=== PATIENT | male | born 1945 | race Caucasian/White ===

== ENCOUNTER 2023-04-18 14:00 | Outpatient (OUT) | payer MEDICARE, OTHER, SELFPAY ==
[2023-04-18 15:03] LABS: Free T4 1.14 ng/dL (0.76-1.46)
[2023-04-18 15:06] LABS: Alanine Aminotransferase 43 U/L (16-63); Albumin Globulin Ratio 0.7; Albumin Level 2.8 g/dL (3.4-5.0); Alkaline Phosphatase 142 U/L (46-116); Aspartate Amino Transferase 26 U/L (15-37); Bilirubin Direct 0.1 mg/dL (0.0-0.2); Bilirubin Total 0.2 mg/dL (0.2-1.0); Globulin 4.1 g/dL; Thyroid Stimulating Hormone 0.804 uIU/mL (0.358-3.740); Total Protein 6.9 g/dL (6.4-8.2)
== END 2023-04-18 14:01 | disposition home or self-care (01) ==
LOC: LAB 14:05
PROVIDERS: Visit Provider Nurse Practitioner Family
DX: Z79.899 Other long term (current) drug therapy (principal)
CPT/HCPCS: 36415; 80076; 84439; 84443

== ENCOUNTER 2023-07-25 13:15 | Outpatient (OUT) | payer MEDICARE, OTHER, SELFPAY ==
--- NOTE | 2023-07-25 14:32 | XR_ITS ---
The [address] [address] Patient Name: BERTHA PULIDO MRN: [id number] date: 1945 Sex: M Assigned Patient Location: [facility] Current Patient Location: [facility] Accession/Order Number: [id number] Exam Date: 07/25/2023 14:42 Report Date: 07/25/2023 14:53 At the request of: NON-STAFF PHYSICIAN Procedure: XR chest 2V EXAM: XR chest 2V HISTORY: Monitoring Amiodarone Therapy Z51.81 COMPARISON: None. TECHNIQUE: Upright PA and lateral chest x-ray FINDINGS: The heart is not enlarged and the vasculature is not distended. Multiple sternal wire sutures and mediastinal clips are present. No acute infiltrate, effusion or pneumothorax is identified. Mild degenerative changes are seen in the spine. XR/XR chest 2V IMPRESSION: No acute infiltrate or evidence of cardiac decompensation. Direct comparison with a previous study may be helpful in determining the chronicity of these findings. Electronically authenticated by: EDUARDO SARGENT Date: 07/25/2023 14:53
== END 2023-07-25 13:16 | disposition home or self-care (01) ==
LOC: RAD 13:19
DX: Z51.81 Encounter for therapeutic drug level monitoring (principal); Z79.899 Other long term (current) drug therapy
CPT/HCPCS: 71046

== ENCOUNTER 2023-08-05 11:17 | Outpatient (OUT) | payer MEDICARE, OTHER, SELFPAY ==
--- OUTSIDE RECORDS SUMMARY | 2023-08-05 11:26 | XMS_ITS | CCD ---
Author Name Unknown Address [address] [place] [address] Organization [facility] Care Team Providers Care Fuel System Maintenance Supervisor Name Role Phone Tracey Sepulveda Primary Care Provider DERICK TRACEY Referring Unavailable OLMSTEAD, MOHAMMAD H Admitting Unavailable OLMSTEAD, MOHAMMAD H Attending Unavailable HEEDDAEBU, TRACEY Primary Care Unavailable HEJEEBU, TRACEY Referring Unavailable OLMSTEAD, MOHAMMAD H Attending Unavailable OLMSTEAD, MOHAMMAD H Admitting Unavailable HEEDDAEBU, TRACEY Primary Care Unavailable BRENT, CHRIS Admitting Unavailable BRENT, CHRIS Attending Unavailable MISC, DR GARSIA Primary Care Unavailable BRENT, CHRIS Consulting Unavailable MISC, DR GARSIA Admitting Unavailable MISC, DR GARSIA Attending Unavailable MISC, DR GARSIA Consulting Unavailable ALI, MAHONEY Admitting Unavailable ALI, MAHONEY Attending Unavailable MISC, DR GARSIA Primary Care Unavailable ALI, MAHONEY Consulting Unavailable GAURAV, TIFF Admitting Unavailable TIFF ARREOLA Attending Unavailable TIFF ARREOLA Consulting Unavailable Hejeebu Cori FERRARIni Primary Care Provider [phone] MANJULA STALEY Referring Unavailable HEJEEBU, TRACEY Primary Care Unavailable MANJULA STALEY Referring Unavailable HEJEEBU, TRACEY Primary Care Unavailable HEJEEBU, TRACEY Primary Care Unavailable WANDY PADRON Admitting Unavailable WANDY PADRON Attending Unavailable EDUARDO CARREON Consulting Unavailable JARRED BUENO Consulting Unavailable MANJULA STALEY Referring Unavailable HEJEEBU, TRACEY Primary Care Unavailable TIFF ARREOLA Attending Unavailable TIFF ARREOLA Attending Unavailable YONIS CASTILLO Attending Unavailable HEAKILAU, TRACEY Attending Unavailable EL-ALALI, EMRAN Attending Unavailable Unavailable Primary Care Provider Unavailabl e Allergies Allergy Classification Reported Allergen(s) Allergy Type Date of Onset Reaction(s) Facility (1 source) 51533,00; Translations: [93935,00] Propensity to adverse reactions (disorder) 9 [facility] Repository Medications Current Medications Medication Drug Class(es) Dates Sig (Normalized) Sig (Original) amiodarone hydrochloride 200 mg oral tablet (4 sources) Antiarrhythmic Start: 07-12-2022 take 1 tablet by mouth once daily at mealtime amiodarone (PACERONE) 200 mg tablet TAKE 1 TABLET BY MOUTH ONCE DAILY WITH MEALS 0 07/12/2022 Active amLODIPine 10 mg oral tablet (3 sources) Dihydropyridine Calcium Channel Kamille take 1 tablet by mouth once daily amLODIPine (NORVASC) 10 MG tablet Take 10 mg by mouth daily 0 Active amLODIPine 10 mg / atorvastatin 10 mg oral tablet (1 source) Dihydropyridine Calcium Channel Kamille, HMG-CoA Reductase Inhibitor amLODIPine-atorv astatin (CADUET) 10-10 mg per tablet 1 tablet 0 Active apixaban 5 mg oral tablet (4 sources) Factor Xa Inhibitor apixaban (ELIQUIS) 5 mg tablet See Admin Instructions. 0 Active apixaban (ELIQUI S) 2.5 MG TABS tablet Take by mouth 2 times daily 0 Active Aspirin (7 sources) Platelet Aggregation Inhibitor, Nonsteroidal Anti-inflammatory Drug aspi rin 81 mg capsule 1 tablet 0 Active take 1 tablet by mouth once jenni y aspirin 81 MG EC tablet Take 81 mg by mouth daily 0 Active take 1 tablet by mouth once jenni y aspirin 162 MG EC tablet Take 162 mg by mouth daily. 0 Active atorvastatin 20 mg oral tablet (9 sources) HMG-CoA Reductase Inhibitor atorvastatin (LIPITO R) 20 mg tablet 1 tablet 0 Active ATORVASTATIN YUMI CIUM PO Take by mouth. 0 Active bumetanide 1 mg oral tablet (4 sources) Loop Diuretic take 2 tablets by mouth once daily bumetanide (BUMEX) 1 mg tablet Take 2 tablets (2 mg total) by mouth daily. 0 Active cholecalciferol 0.05 mg oral capsule (4 sources) Vitamin D cholecalciferol, vitamin D3, 2,000 units capsule daily. 0 Active Doxazosin (5 sources) alpha-Adrenergic Kamille DOXAZOSIN MESYLATE PO Take by mouth. 0 Active 0.5 ml dulaglutide 3 mg/ml auto-injector (3 sources) GLP-1 Receptor Agonist dulaglutide (TRULICITY) 1.5 MG/0.5ML SC injection Inject 1.5 mg into the skin once a week SUNDAYS 0 Active famotidine 10 mg oral tablet (3 sources) Histamine-2 Receptor Antagonist Start: 08-31-19 23 take 1 tablet by mouth once daily famotidine (PEPCID) 10 MG tablet Take 1 tablet by mouth daily 60 tablet 3 08/31/2022 Active glipiZIDE 10 mg oral tablet (9 sources) Sulfonylurea Start: 10-03-19 23 take 1 tablet by mouth twice daily glipiZIDE (GLUCOTROL) 10 mg tablet Take 1 tablet by mouth twice daily 180 tablet 3 10/02/2022 Active take 10 mg by mouth twice daily GLIPIZIDE PO Take 10 mg by mouth 2 times daily 0 Active GLIPIZIDE PO Jordi e by mouth. 0 Active sensor 3 ml insulin glargine 100 unt/ml pen injector (1 source) Insulin Analog Start: 04-16-2023 insulin glargi ne (BASAGLAR KWIKPEN U-100 INSULIN) 100 unit/mL (3 mL) insulin pen Take 15 units at bedtime 15 mL 12 04/16/2023 Active Lisinopril (5 sources) Angiotensin Converting Enzyme Inhibitor LISINOPRIL PO Take by mouth. 0 Active magnesium oxide 400 mg oral tablet (1 source) magnesium oxide (MAGOX) 400 mg tablet daily. 0 Active meloxicam 7.5 mg oral tablet (1 source) Nonsteroidal Anti-inflammatory Drug meloxicam (MOBIC) 7.5 mg tablet daily. 0 Active metFORMIN (5 sources) Biguanide METFORMIN HCL PO Take by mouth. 0 Active metoprolol tartrate 25 mg oral tablet (9 sources) beta-Adrenergic Kamille take 1 tablet by mouth in the morning, then take 1 tablet by mouth at bedtime metoprolol tartrate (LOPRESSOR) 25 mg tablet Take 1 tablet (25 mg total) by mouth in the morning and 1 tablet (25 mg total) before bedtime. 0 Active take 50 mg by mouth at bedtime M ETOPROLOL TARTRATE PO Take 50 mg by mouth in the morning and at bedtime 0 Active METOPROLOL TARTR ATE PO Take by mouth. 0 Active omeprazole 20 mg delayed release oral tablet (5 sources) Proton Pump Inhibitor Omeprazole 20 MG TBEC Take by mouth. 0 Active polyethylene glycol 3350 72292 mg powder for oral solution (3 sources) Osmotic Laxative Start: 3 End: 3 take 17 g by mouth once daily polyethylene glycol (GLYCOLAX) 17 g packet Take 17 g by mouth daily 527 g 1 08/31/2022 09/30/2022 Active primidone 50 mg oral tablet (4 sources) Anti-epileptic Agent primidone (MYSOLINE) 50 mg tablet 1 tablet 0 Active SITagliptin (5 sources) Dipeptidyl Peptidase 4 Inhibitor SitaGLIPtin Phosphate (JANUVIA PO) Take by mouth. 0 Active tamsulosin hydrochloride 0.4 mg oral capsule (4 sources) alpha-Adrenergic Kamille Start: 3 take 1 capsule by mouth at bedtime tamsulosin (FLOMAX) 0.4 MG capsule Take 1 capsule by mouth in the morning and at bedtime 60 capsule 3 09/19/2022 Active Start: 08-30-2022 take 1 capsule by mo uth at bedtime tamsulosin (FLOMAX) 0.4 MG capsule Take 1 capsule by mouth in the morning and at bedtime 30 capsule 3 08/30/2022 Active TRULICITY 3 mg/0.5 mL pen injector (1 source) Start: 06-18-2023 inject 3 mg by subcutaneous injection every week TRULICITY 3 mg/0.5 mL pen injector Indications: Type 2 diabetes mellitus with hyperglycemia, without long-term current use of insulin ([facility]) Inject 3 mg under the skin once a week. 6 mL 3 06/18/2023 Active Problems Active Problems Problem Classification Problem Date Documented Da te Episodic/Chronic Abdominal pain (6 sources) Intractable abdominal pain; Translations: [Unspecified abdominal pain] Onset: 08-27-2022 08-27-2022 Episodic Cardiac dysrhythmias (5 sources) Atrial fibrillation; Translations: [Unspecified atrial fibrillation] Onset: 04-03-2022 08-27-2022 Chronic Chronic kidney disease (13 sources) Chronic kidney disease, stage 4 (severe); Translations: [Chronic kidney disease, stage 2 (mild)] Onset: 10-03-2021 Chronic Chronic kidney disease (2 sources) Chronic kidney disease; Translations: [Chronic kidney disease, stage 3b] Onset: 08-04-2022 Congestive heart failure; nonhypertensive (2 sources) Chronic diastolic (congestive) heart failure; Translations: [Chronic diastolic (congestive) heart failure] Onset: 05-02-2022 Chronic Diabetes mellitus with complications (8 sources) Type 2 diabetes mellitus with other specified complication; Translations: [Type 2 diabetes mellitus with diabetic chronic kidney disease] Onset: 09-28-2021 Chronic Diabetes mellitus without complication (3 sources) Diabetes mellitus; Translations: [Type 2 diabetes mellitus without complications] Onset: 08-27-2022 08-27-2022 Chronic Disorders of lipid metabolism (3 sources) Mixed hyperlipidemia; Translations: [Mixed hyperlipidemia] Onset: 03-16-2022 Chronic Essential hypertension (7 sources) Hypertensive disorder; Translations: [Essential (primary) hypertension] Onset: 08-04-2022 08-27-2022 Chronic Genitourinary symptoms and ill-defined conditions (3 sources) Retention of urine; Translations: [Retention of urine, unspecified] Onset: 08-28-2022 08-28-2022 Episodic Hyperplasia of prostate (2 sources) Benign prostatic hyperplasia without lower urinary tract symptoms; Translations: [Benign prostatic hyperplasia without lower urinary tract symptoms] Onset: 03-16-2022 Chronic Hypertension with complications and secondary hypertension (2 sources) Hypertensive chronic kidney disease with stage 1 through stage 4 chronic kidney disease, or unspecified chronic kidney disease; Translations: [Hypertensive chronic kidney disease with stage 1 through stage 4 chronic kidney disease, or unspecified chronic kidney disease] Onset: 05-02-2022 Chronic Nutritional deficiencies (7 sources) Malnutrition (calorie); Translations: [Moderate protein-calorie malnutrition] Onset: 03-16-2022 08-28-2022 Chronic Other aftercare (6 sources) Other senior living (current) drug therapy; Translations: [OTH [facility]IOR LIVING CURRENT DRUG THERAPY] Onset: 07-27-2022 Episodic Other aftercare (2 sources) Encounter for therapeutic drug level monitoring; Translations: [Encounter for therapeutic drug level monitoring] Onset: 04-23-2023 Episodic Other nervous system disorders (1 source) Other chronic pain; Translations: [Other chronic pain] Onset: 08-27-2022 Chronic Other non-traumatic joint disorders (1 source) Pain in left hip; Translations: [Pain in left hip] Onset: 02-14-2023 Episodic Past or Other Problems Problem Classification Problem Date Documented Da te Episodic/Chronic Deficiency and other anemia (2 sources) Iron deficiency anemia, unspecified; Translations: [Iron deficiency anemia, unspecified] Onset: 04-03-2022 Episodic Residual codes; unclassified (2 sources) Localized edema; Translations: [Localized edema] Onset: 07-31-2022 Episodic Results Test Name Value Interpretation Reference Range Facility [facility] 07-12-2023 Refill [id number] Bertha Pulido 1945 M [facility] Provider Department Center 07/12/2023 TRACEY OROZCO [facility] INT MED Comprehensiv Family History Family history unknown: Yes Reason for Visit and Comments: Med Refill [[id number]] [facility] 06-13-2023 Refill [id number] Bertha Pulido 1945 M [facility] Provider Department [place] 06/13/2023 ElizTRACEY SEPULVEDA [facility] INT MED Comprehensiv Family History Family history unknown: Yes Reason for Visit and Comments: Med Refill [[id number]] [facility] 04-26-2023 Refill [id number] Bertha Pulido 1945 M [facility] Provider Department [place] 04/26/2023 TRACEY OROZCO [facility] INT MED Comprehensiv Family History Family history unknown: Yes Reason for Visit and Comments: Med Refill [[id number]] [facility] Office Visiton 04-23-2023 Follow-up visit [id number] Bertha Pulido 1945 [facility] Provider Department Center 04/23/[address] [facility] Family History Family history unknown: Yes Level of Service:97247 [place] OFFICE/OUTPATIENT ESTABLISHED LOW MDM 20-29 MIN Reason for Visit and Comments: Hypertension [778534] Coronary Artery Disease [187] Congestive Heart Failure [127] Atrial Fibrillation [80] [facility] 36on 04-15-2023 36 Patient is completel y out [facility]23 Refill [id number] Bertha Pulido 1945 M Date Provider Department Center 04/07/2023 TRACEY OROZCO [facility] INT MED Comprehensiv Family History Family history unknown: Yes Reason for Visit and Comments: Med Refill [[id number]] [facility] 2901-29-2023 29 Addended by: LOBITO BURNETT on: 04/14/2023 03:15 PM Modules accepted: Level of Service [facility] 3601-29-2023 36 Left voice mail for patient to call the office to get scheduled for an appointment [facility] Follow-Upon 01-29-2023 Follow-Up [id number] Bertha Pulido 1945 Provider Department [place] 01/29/2023 YONIS MATHIS [facility] INT MED Comprehensiv Family History Family history unknown: Yes Level of Service:41329 [place] OFFICE/OUTPATIENT ESTABLISHED LOW MDM 20-29 MIN (GE) Reason for Visit and Comments: cdm follow up, [Other] - 3 month check up. [facility] 3601-27-2023 36 Please call Bertha to reschedule appointment 01/27/23 kt [facility] Telephoneon 01-27-2023 Telephone [id number] Bertha Pulido 1945 Provider Department [place] 01/27/2023 HERRERA SOLIS [facility] NEPHRO Comprehensiv Family History Family history unknown: Yes [facility] 3601-24-2023 36 Called patient lvm t o contact office back to reschedule appointment with . [facility] Orders Onlyon 01-21-2023 Orders Only [id number] Bertha Pulido 1945 Provider Department [place] 01/21/2023 RAY NEW [facility] INT MED Comprehensiv Family History Family history unknown: Yes [facility] Refillon 01-21-2023 Refill [id number] Bertha Pulido 1945 Provider Department [place] 01/21/2023 TRACEY OROZCO [facility] INT MED Comprehensiv Family History Family history unknown: Yes Reason for Visit and Comments: Med Refill [[id number]] [facility] 36on 01-06-2023 36 Patient would like t o know if he needs labs before next appointment. Please advise. Thank you. [facility] Refillon 01-01-2023 Refill [id number] Bertha Pulido Vipul 1945 M Date Provider Department Center 01/01/2023 TRACEY OROZCO [facility] INT MED Comprehensiv Family History Family history unknown: Yes Reason for Visit and Comments: Med Refill [[id number]] [facility] 36on 11-27-2022 36 Called to see if patient had labs for today's appointment, if patient doesn't have labs we will need to reschedule [facility] Office Visiton 2022 Follow-up visit [id number] Anne-Marie,Bertha Matthew 1945 [facility] Provider Department Center 2022 TIFF MABRY [facility] Family History Family history unknown: Yes Level of Service:42144 [place] OFFICE/OUTPATIENT ESTABLISHED MOD MDM 30-39 MIN Reason for Visit and Comments: Hypotension [407] [facility] Refillon 10-16-2022 Refill [id number] Bertha Pulido Vipul 1945 Provider Department Center 10/16/2022 TRACEY OROZCO [facility] INT MED Comprehensiv Family History Family history unknown: Yes Reason for Visit and Comments: Med Refill [[id number]] [facility] 36on 10-14-2022 36 I called pt he was not home. I spoke to She stated pt has not complained the past couple days. That pt will be at his appt with Liz Arreola. [facility] Follow-Upon 10-14-2022 Follow-Up [id number] Anne-MarieBertha Vipul 1945 Provider Department Center 10/14/2022 TRACEY OROZCO [facility] INT MED Comprehensiv Family History Family history unknown: Yes Level of Service:G0439 [place] PPPS, SUBSEQ VISIT (25) Reason for Visit and Comments: Hospital Follow-up [832] - -Metorprolol tartrate has not been taking for about 1 week now[facility] Pain [[id number]] [facility] 36on 10-10-2022 36 Patient is calling would like to know if he should be getting any lab work done before his appointment with you next week. Please advise [facility] Telephoneon 10-09-2022 Telephone [id number] Bertha Pulido 1945 M Date Provider Department Center 10/09/2022 166-TIFF ARREOLA [facility] Family History Family history unknown: Yes Reason for Visit and Comments: Low BP [Other] - Pt LVM stating his BP has been in the 50s for 1 wk. I tried to call pt back no answer LVM to CB with more details. [facility] 36on 10-02-2022 36 Orders placed, left detailed message on patients recorder. Needing to know if it needs to be picked up or faxed [facility] 36 Patient states he go t out of rehab on 09/25/2022 from his issues of walking . He is requesting a handicap placard and an order for a rolling walker. [facility] CBC with Auto Differentialon 09-23-2022 Absolute Eos # 0.50 High [facility] [employer] Absolute Immature Granulocyte 0.03 [facility] Absolute Lymph # 2.87 [facility] Absolute Leslie # 0.83 [facility] Basophils (Bld) [#/Vol] 0.05 10*3/uL [facility] [email or web address] Basophils/100 WBC (Bld) 1 % 0 - 2 % B ON [facility] [employer] Eosinophils/100 WBC (Bld) 6 % High 1 - 4 % [facility] [employer] Hematocrit (Bld) [Volume fraction] 37.1 % Low 40.7 - 50.3 % [facility] [employer] Hemoglobin (Bld) [Mass/Vol] 12.5 g/dL Low 13.0 - 17.0 g/dL [facility] [employer] Immature granulocytes/100 WBC (Bld) 0 % 0 [facility] Interpretation and review of laboratory results Abnormal [facility] Lymphocytes/100 WBC (Bld) 33 % 24 - 43 % [facility] MCH (RBC) [Entitic mass] 32.2 pg 25.2 - 33.5 pg [facility] MCHC (RBC) [Mass/Vol] 33.7 g/dL 28.4 - 34.8 g/dL [facility] MCV (RBC) [Entitic vol] 95.6 fL 82.6 - 102.9 fL [facility] Monocytes/100 WBC (Bld) 10 % 3 - 12 % B ON [facility] NRBC Automated 0.0 0.0 per 100 WBC [facility] Platelet distribution width (Bld) [Ratio] 13.2 % 11.8 - 14.4 % [facility] Platelet mean volume (Bld) [Entitic vol] 10.3 fL 8.1 - 13.5 fL [facility] Platelets (Bld) [#/Vol] 143 10*3/uL [facility] RBC (Bld) [#/Vol] 3.88 10*6/uL Low 4.21 - 5.7 7 m/uL [facility] Segmented neutrophils/100 WBC (Bld) 51 % 36 - 65 % [facility] Segs Absolute 4.38 [facility] WBC (Bld) [#/Vol] 8.7 10*3/uL [facility] CBC with Diffon 09-23-2022 Abs. Basophil 0.05 k/uL Normal 0.00-0.20 [facility] Comment on above: Performed By: #### C DP, IPF, BMPX #### [facility] [address] [place] [address] Family Preservation Caseworker: Jabari Padgett MD Abs.Imm.Granulocyte 0.03 k/uL Normal 0.00-0.30 [facility] Comment on above: Performed By: #### C DP, IPF, BMPX #### [facility] [address] [place] [address] Family Preservation Caseworker: Jabari Padgett MD Abs.Neutrophil (Seg) 4.38 k/uL Normal 1.50-8.10 [facility] Comment on above: Performed By: #### C DP, IPF, BMPX #### [address] [place], [place] [id number] Family Preservation Caseworker: Jabari Padgett MD Basophils/100 WBC (Bld) 1 % Normal 0-2 [facility] Comment on above: Performed By: #### C DP, IPF, BMPX #### [address] [place] [address] Family Preservation Caseworker: Jabari Padgett MD Eosinophils (Bld) [#/Vol] 0.50 10*3/uL High 0.00-0.44 [facility] Comment on above: Performed By: #### C DP, IPF, BMPX #### [address] [place], [facility]83 Family Preservation Caseworker: Jabari Padgett MD Eosinophils/100 WBC (Bld) 6 % High 1-4 [facility] Comment on above: Performed By: #### C DP, IPF, BMPX #### [address] [place], [facility]83 Family Preservation Caseworker: Jabari Padgett MD Erythrocyte distribution width (RBC) [Ratio] 13.2 % Normal 11.8-14.4 [facility] Comment on above: Performed By: #### C DP, IPF, BMPX #### [address] [place], [place] [id number] Family Preservation Caseworker: Jabari Padgett MD Hematocrit (Bld) [Volume fraction] 37.1 % Low 40.7-50.3 [facility] Comment on above: Performed By: #### C DP, IPF, BMPX #### [address] [place] [address] Family Preservation Caseworker: Jabari Padgett MD Hemoglobin (Bld) [Mass/Vol] 12.5 g/dL Low 13.0-17.0 [facility] Comment on above: Performed By: #### C DP, IPF, BMPX #### [facility] [address] [place], [place] [address] Family Preservation Caseworker: Jabari Padgett MD Immature granulocytes/100 WBC (Bld) 0 % Normal 0 [facility] Comment on above: Performed By: #### C DP, IPF, BMPX #### [facility] [address] [place], [place] [id number] Family Preservation Caseworker: Jabari Padgett MD Lymphocytes (Bld) [#/Vol] 2.87 10*3/uL Normal 1.10-3.70 [facility] Comment on above: Performed By: #### C DP, IPF, BMPX #### [address] [place], [place] [id number] Family Preservation Caseworker: Jabari Padgett MD Lymphocytes/100 WBC (Bld) 33 % Normal 24-43 [facility] Comment on above: Performed By: #### C DP, IPF, BMPX #### [address] [place], [place] [address] Family Preservation Caseworker: Jabari Padgett MD MCH (RBC) [Entitic mass] 32.2 pg Normal 25.2-33.5 [facility] Comment on above: Performed By: #### C DP, IPF, BMPX #### [address] [place], [place] [id number] Family Preservation Caseworker: Jabari Padgett MD MCHC (RBC) [Mass/Vol] 33.7 g/dL Normal 28.4-34.8 [facility] Comment on above: Performed By: #### C DP, IPF, BMPX #### [facility] [address] [place] [address] Family Preservation Caseworker: Jabari Padgett MD MCV (RBC) [Entitic vol] 95.6 fL Normal 82.6-102.9 [facility] Comment on above: Performed By: #### C DP, IPF, BMPX #### [facility] [address] [place] [address] Family Preservation Caseworker: Jabari Padgett MD Monocytes (Bld) [#/Vol] 0.83 10*3/uL Normal 0.10-1.20 [facility] Comment on above: Performed By: #### C DP, IPF, BMPX #### [facility] [address] [place], [facility]83 Family Preservation Caseworker: Jabari Padgett MD Monocytes/100 WBC (Bld) 10 % Normal 3-12 [facility] Comment on above: Performed By: #### C DP, IPF, BMPX #### [facility] [address] [place], [facility]83 Family Preservation Caseworker: Jabari Padgett MD Neutrophil (Seg) 51 % Normal 36-65 [facility] Comment on above: Performed By: #### C DP, IPF, BMPX #### [facility] [address] [place] [address] Family Preservation Caseworker: Jabari Padgett MD NRBC Automated 0.0 per 100 WBC Normal 0.0 [facility] Comment on above: Performed By: #### C DP, IPF, BMPX #### [facility] [address] [place], [facility]83 Family Preservation Caseworker: Jabari Padgett MD Platelet mean volume (Bld) [Entitic vol] 10.3 fL Normal 8.1-13.5 [facility] Comment on above: Performed By: #### C DP, IPF, BMPX #### [facility] [address] [place] [address] Family Preservation Caseworker: Jabari Padgett MD Platelets (Bld) [#/Vol] 143 10*3/uL Normal 138-453 [facility] Comment on above: Performed By: #### C DP, IPF, BMPX #### [facility] [address] [address] [place], [place] [id number] Family Preservation Caseworker: Jabari Padgett MD RBC (Bld) [#/Vol] 3.88 10*6/uL Low 4.21-5.77 [facility] Comment on above: Performed By: #### C DP, IPF, BMPX #### [facility] [address] [place], [place] [id number] Family Preservation Caseworker: Jabari Padgett MD WBC (Bld) [#/Vol] 8.7 10*3/uL Normal 3.5-11.3 [facility] Comment on above: Performed By: #### C DP, IPF, BMPX #### [facility] [address] [place] [address] Family Preservation Caseworker: Jabari Padgett MD Comp Metabolic Profon 2022 Albumin [Mass/Vol] 3.3 g/dL Low 3.5-5.2 [facility] Comment on above: Performed By: #### C DP, IPF, BMPX #### [facility] [address] [place], [place] [id number] Family Preservation Caseworker: Jabari Padgett MD Albumin/Glob Ratio 1.0 Normal 1.0-2.5 [facility] Comment on above: Performed By: #### C DP, IPF, BMPX #### [facility] [address] [place], [place] [id number] Family Preservation Caseworker: Jabari Padgett MD Alkaline Phos 111 U/L Normal 40-129 [facility] Comment on above: Performed By: #### C DP, IPF, BMPX #### [facility] [address] [place] [address] Family Preservation Caseworker: Jabari Padgett MD ALT [Catalytic activity/Vol] 26 U/L Normal 5-41 [facility] Comment on above: Performed By: #### C DP, IPF, BMPX #### [facility] [address] [place], [place] [id number] Family Preservation Caseworker: Jabari Padgett MD Anion gap [Moles/Vol] 8 mmol/L Low 9-17 [facility] Comment on above: Performed By: #### C DP, IPF, BMPX #### [facility] [address] [place], [place] [id number] Family Preservation Caseworker: Jabari Padgett MD AST [Catalytic activity/Vol] 19 U/L Normal <40 [facility] Comment on above: Performed By: #### C DP, IPF, BMPX #### [address] [place], [place] [id number] Family Preservation Caseworker: Jabari Padgett MD Bilirubin [Mass/Vol] 0.3 mg/dL Normal 0.3-1.2 [facility] Comment on above: Performed By: #### C DP, IPF, BMPX #### [facility] [address] [place] [address] [place] [place], [place] [id number] Family Preservation Caseworker: Jabari Padgett MD BUN/CRE Ratio 17 Normal 9-20 [facility] Comment on above: Performed By: #### C DP, IPF, BMPX #### [address] [place], [place] [id number] Family Preservation Caseworker: Jabari Padgett MD Calcium [Mass/Vol] 8.9 mg/dL Normal 8.6-10.4 [facility] Comment on above: Performed By: #### C DP, IPF, BMPX #### [facility] [address] [place], [place] [address] Family Preservation Caseworker: Jabari Padgett MD Chloride [Moles/Vol] 101 mmol/L Normal 98-107 [facility] Comment on above: Performed By: #### C DP, IPF, BMPX #### [facility] [address] [place] [address] [place] [address] Family Preservation Caseworker: Jabari Padgett MD CO2 [Moles/Vol] 29 mmol/L Normal 20-31 [facility] Comment on above: Performed By: #### C DP IPF, BMPX #### [facility] [address] [place] [address] Family Preservation Caseworker: Jabari Padgett MD Creatinine [Mass/Vol] 2.57 mg/dL High 0.70-1.20 [facility] Comment on above: Performed By: #### C DP IPF, BMPX #### [facility] [address] [place] [address] Family Preservation Caseworker: Jabari Padgett MD GFR/1.73 sq M.predicted among non-blacks MDRD (S/P/Bld) [Vol rate/Area] 25 mL/min/{1.73_m2} Low >60 [facility] Comment on above: Result Comment: These results are not intended for use in patients <18 years of age. eGFR results are calculated without a race factor using the 2020 CKD-EPI equation. Careful clinical correlation is recommended, particularly when comparing to results calculated using previous equations. The CKD-EPI equation is less accurate in patients with extremes of muscle mass, extra-renal metabolism of creatine, excessive creatine ingestion, or following therapy that affects renal tubular secretion. Performed By: #### C DEENA IPF, BMPX #### [facility] [address] [place] [address] Family Preservation Caseworker: Jabari Padgett MD Glucose [Mass/Vol] 179 mg/dL High 70-99 [facility] Comment on above: Performed By: #### C DEENA IPF, BMPX #### [facility] [address] [place] [address] Family Preservation Caseworker: Jabari Padgett MD Potassium [Moles/Vol] 4.2 mmol/L Normal 3.7-5.3 [facility] Comment on above: Performed By: #### C DP IPF, BMPX #### [facility] [address] [place] [address] Family Preservation Caseworker: Jabari Padgett MD Protein [Mass/Vol] 6.7 g/dL Normal 6.4-8.3 [facility] Comment on above: Performed By: #### C DP, IPF, BMPX #### [facility] [address] [place] [address] Family Preservation Caseworker: Jabari Padgett MD Sodium [Moles/Vol] 138 mmol/L Normal 135-144 [facility] Comment on above: Performed By: #### C DP, IPF, BMPX #### [facility] [address] [place] [address] Family Preservation Caseworker: Jabari Padgett MD Urea nitrogen [Mass/Vol] 43 mg/dL High 8-23 [facility] Comment on above: Performed By: #### C DP, IPF, BMPX #### [facility] [address] [place] [address] Family Preservation Caseworker: Jabari Padgett MD Comprehensive Metabolic Pane [facility] 09-23-2022 Albumin [Mass/Vol] 3.3 g/dL Low 3.5 - 5.2 g/dL [facility] Albumin/Globulin [Mass ratio] 1.0 {ratio} 1.0 - 2.5 [facility] ALP [Catalytic activity/Vol] 111 U/L 40 - 129 U/L [facility] ALT [Catalytic activity/Vol] 26 U/L 5 - 41 U/L [facility] Anion gap [Moles/Vol] 8 mmol/L Low 9 - 17 mmol/L [facility] AST [Catalytic activity/Vol] 19 U/L NINF - 40 U/L [facility] Bilirubin [Mass/Vol] 0.3 mg/dL 0.3 - 1 .2 mg/dL [facility] Calcium [Mass/Vol] 8.9 mg/dL 8.6 - 10. 4 mg/dL [facility] Chloride [Moles/Vol] 101 mmol/L 98 - 10 7 mmol/L [facility] CO2 [Moles/Vol] 29 mmol/L 20 - 31 mmol/L [facility] Creatinine [Mass/Vol] 2.57 mg/dL High 0.70 - 1.20 mg/dL [facility] GFR/1.73 sq M.predicted MDRD (S/P/Bld) [Vol rate/Area] 25 mL/min/{1.73_m2} Low - PINF [facility] Comment on above: These results are not intended for use in patients <18 years of age. eGFR results are calculated without a race factor using the 2020 CKD-EPI equation. Careful clinical correlation is recommended, particularly when comparing to results calculated using previous equations. The CKD-EPI equation is less accurate in patients with extremes of muscle mass, extra-renal metabolism of creatine, excessive creatine ingestion, or following therapy that affects renal tubular secretion. Glucose [Mass/Vol] 179 mg/dL High 70 - 99 mg/dL [facility] Interpretation and review of laboratory results Abnormal [facility] Potassium [Moles/Vol] 4.2 mmol/L 3.7 - 5.3 mmol/L [facility] Protein [Mass/Vol] 6.7 g/dL 6.4 - 8.3 g/dL [facility] Sodium [Moles/Vol] 138 mmol/L 135 - 144 mmol/L [facility] Urea nitrogen [Mass/Vol] 43 mg/dL High 8 - 23 mg/dL [facility] Urea nitrogen/Creatinine (Bld) [Mass ratio] 17 9 - 20 [facility] CBC with Auto Differentialon 09-16-2022 Absolute Eos # 0.23 [place] [facility] Absolute Immature Granulocyte [facility] Absolute Lymph # 2.28 [facility] Absolute Leslie # 0.81 [facility] Basophils (Bld) [#/Vol] 0.04 10*3/uL [facility] Basophils/100 WBC (Bld) 1 % 0 - 2 % B [facility] Eosinophils/100 WBC (Bld) 3 % 1 - 4 % [facility] Hematocrit (Bld) [Volume fraction] 35.5 % Low 40.7 - 50.3 % [facility] Hemoglobin (Bld) [Mass/Vol] 12.5 g/dL Low 13.0 - 17.0 g/dL [facility] Immature granulocytes/100 WBC (Bld) 0 % 0 [facility] Interpretation and review of laboratory results Abnormal [facility] Lymphocytes/100 WBC (Bld) 29 % 24 - 43 % [facility] MCH (RBC) [Entitic mass] 31.7 pg 25.2 - 33.5 pg [facility] MCHC (RBC) [Mass/Vol] 35.2 g/dL High 28.4 - 34.8 g/dL [facility] MCV (RBC) [Entitic vol] 90.1 fL 82.6 - 102.9 fL [facility] Monocytes/100 WBC (Bld) 10 % 3 - 12 % B [facility] NRBC Automated 0.0 0.0 per 100 WBC [facility] Platelet distribution width (Bld) [Ratio] 12.9 % 11.8 - 14.4 % [facility] Platelet mean volume (Bld) [Entitic vol] 10.3 fL 8.1 - 13.5 fL [facility] Platelets (Bld) [#/Vol] 160 10*3/uL [facility] RBC (Bld) [#/Vol] 3.94 10*6/uL Low 4.21 - 5.7 7 m/uL [facility] Segmented neutrophils/100 WBC (Bld) 57 % 36 - 65 % [facility] Segs Absolute 4.39 [facility] WBC (Bld) [#/Vol] 7.8 10*3/uL [facility] CBC with Diffon 09-16-2022 Abs. Basophil 0.04 k/uL Normal 0.00-0.20 [facility] Comment on above: Performed By: #### C DP, CP #### [facility] [address] [place] [address] Family Preservation Caseworker: Jabari Padgett MD Abs.Imm.Granulocyte <0.03 Normal 0.00-0.30 [facility] Comment on above: Performed By: #### C DP, CP #### [address] [place], [place] [address] Family Preservation Caseworker: Jabari Padgett MD Abs.Neutrophil (Seg) 4.39 k/uL Normal 1.50-8.10 [facility] Comment on above: Performed By: #### C DP, CP #### [address] [place] [address] Family Preservation Caseworker: Jabari Padgett MD Basophils/100 WBC (Bld) 1 % Normal 0-2 [facility] Comment on above: Performed By: #### C DP, CP #### [address] [place] [id number] Family Preservation Caseworker: Jabari Padgett MD Eosinophils (Bld) [#/Vol] 0.23 10*3/uL Normal 0.00-0.44 [facility] Comment on above: Performed By: #### C DP, CP #### [address] [place] [address] Family Preservation Caseworker: Jabari Padgett MD Eosinophils/100 WBC (Bld) 3 % Normal 1-4 [facility] Comment on above: Performed By: #### C DP, CP #### [address] [place], [facility]83 Family Preservation Caseworker: Jabari Padgett MD Erythrocyte distribution width (RBC) [Ratio] 12.9 % Normal 11.8-14.4 [facility] Comment on above: Performed By: #### C DP, CP #### [address] [place] [id number] Family Preservation Caseworker: Jabari Padgett MD Hematocrit (Bld) [Volume fraction] 35.5 % Low 40.7-50.3 [facility] Comment on above: Performed By: #### C DP, CP #### [facility] [address] [place], [place] [id number] Family Preservation Caseworker: Jabari Padgett MD Hemoglobin (Bld) [Mass/Vol] 12.5 g/dL Low 13.0-17.0 [facility] Comment on above: Performed By: #### C DP, CP #### [facility] [address] [place], [place] [id number] Family Preservation Caseworker: Jabari Padgett MD Immature granulocytes/100 WBC (Bld) 0 % Normal 0 [facility] Comment on above: Performed By: #### C DP, CP #### [address] [place], [facility]83 Family Preservation Caseworker: Jabari Padgett MD Lymphocytes (Bld) [#/Vol] 2.28 10*3/uL Normal 1.10-3.70 [facility] Comment on above: Performed By: #### C DP, CP #### [address] [place], [facility]83 Family Preservation Caseworker: Jabari Padgett MD Lymphocytes/100 WBC (Bld) 29 % Normal 24-43 [facility] Comment on above: Performed By: #### C DP, CP #### [address] [place], [facility]83 Family Preservation Caseworker: Jabari Padgett MD MCH (RBC) [Entitic mass] 31.7 pg Normal 25.2-33.5 [facility] Comment on above: Performed By: #### C DP, CP #### [address] [place], [place] [id number] Family Preservation Caseworker: Jabari Padgett MD MCHC (RBC) [Mass/Vol] 35.2 g/dL High 28.4-34.8 [facility] Comment on above: Performed By: #### C DP, CP #### [address] [place], [place] [address] Family Preservation Caseworker: Jabari Padgett MD MCV (RBC) [Entitic vol] 90.1 fL Normal 82.6-102.9 [facility] Comment on above: Performed By: #### C DP, CP #### [address] [place], [place] [phone] Family Preservation Caseworker: Jabari Padgett MD Monocytes (Bld) [#/Vol] 0.81 10*3/uL Normal 0.10-1.20 [facility] Comment on above: Performed By: #### C DP, CP #### [address] [place], [place] [id number] Family Preservation Caseworker: Jabari Padgett MD Monocytes/100 WBC (Bld) 10 % Normal 3-12 [facility] Comment on above: Performed By: #### C DP, CP #### [address] [place], [facility]83 Family Preservation Caseworker: Jabari Padgett MD Neutrophil (Seg) 57 % Normal 36-65 [facility] Comment on above: Performed By: #### C DP, CP #### [address] [place], [place] [id number] Family Preservation Caseworker: Jabari Padgett MD NRBC Automated 0.0 per 100 WBC Normal 0.0 [facility] Comment on above: Performed By: #### C DP, CP #### [address] [place], [facility]83 Family Preservation Caseworker: Jabari Padgett MD Platelet mean volume (Bld) [Entitic vol] 10.3 fL Normal 8.1-13.5 [facility] Comment on above: Performed By: #### C DP, CP #### [address] [place], [place] 279[address]83 Family Preservation Caseworker: Jabari Padgett MD Platelets (Bld) [#/Vol] 160 10*3/uL Normal 138-453 [facility] Comment on above: Performed By: #### C DP, CP #### [facility] [address] [place], [place] [phone] Family Preservation Caseworker: Jabari Padgett MD RBC (Bld) [#/Vol] 3.94 10*6/uL Low 4.21-5.77 [facility] Comment on above: Performed By: #### C DP, CP #### [facility] [address] [place], [place] [id number] Family Preservation Caseworker: Jabari Padgett MD WBC (Bld) [#/Vol] 7.8 10*3/uL Normal 3.5-11.3 [facility] Comment on above: Performed By: #### C DP, CP #### [facility] [address] [place], [place] [phone] Family Preservation Caseworker: Jabari Padgett MD Comp Metabolic Profon 2022 Albumin [Mass/Vol] 3.1 g/dL Low 3.5-5.2 [facility] Comment on above: Performed By: #### C DP, CP #### [facility] [address] [place] [address] Family Preservation Caseworker: Jabari Padgett MD Albumin/Glob Ratio 0.9 Low 1.0-2.5 [facility] Comment on above: Performed By: #### C DP, CP #### [facility] [address] [place], [place] [address]83 Family Preservation Caseworker: Jabari Padgett MD Alkaline Phos 120 U/L Normal 40-129 [facility] Comment on above: Performed By: #### C DP, CP #### [facility] [address] [place] [address] Family Preservation Caseworker: Jabari Padgett MD ALT [Catalytic activity/Vol] 27 U/L Normal 5-41 [facility] Comment on above: Performed By: #### C DP, CP #### [facility] [address] [place], [place] [address]83 Family Preservation Caseworker: Jabari Padgett MD Anion gap [Moles/Vol] 9 mmol/L Normal 9-17 [facility] Comment on above: Performed By: #### C DP, CP #### [facility] [address] [place], [place] [address] Family Preservation Caseworker: Jabari Padgett MD AST [Catalytic activity/Vol] 21 U/L Normal <40 [facility] Comment on above: Performed By: #### C DP, CP #### [facility] [address] [place], [place] [address]164[address] Family Preservation Caseworker: Jabari Padgett MD Bilirubin [Mass/Vol] 0.3 mg/dL Normal 0.3-1.2 [facility] Comment on above: Performed By: #### C DP, CP #### [facility] [address] [place], [place] [phone] Family Preservation Caseworker: Jabari Padgett MD BUN/CRE Ratio 19 Normal 9-20 [facility] Comment on above: Performed By: #### C DP, CP #### [address] [place], [place] [address]885983 Family Preservation Caseworker: Jabari Padgett MD Calcium [Mass/Vol] 8.8 mg/dL Normal 8.6-10.4 [facility] Comment on above: Performed By: #### C DP, CP #### [facility] [address] [place], [place] 8[address]83 Family Preservation Caseworker: Jabari Padgett MD Chloride [Moles/Vol] 101 mmol/L Normal 98-107 [facility] Comment on above: Performed By: #### C DP, CP #### [facility] [address] [place], [place] [address]83 Family Preservation Caseworker: Jabari Padgett MD CO2 [Moles/Vol] 27 mmol/L Normal 20-31 [facility] Comment on above: Performed By: #### C DP, CP #### [facility] [address] [place] [address] Family Preservation Caseworker: Jabari Padgett MD Creatinine [Mass/Vol] 2.52 mg/dL High 0.70-1.20 [facility] Comment on above: Performed By: #### C DP, CP #### [facility] [address] [place] [address] Family Preservation Caseworker: Jabari Padgett MD GFR/1.73 sq M.predicted among non-blacks MDRD (S/P/Bld) [Vol rate/Area] 26 mL/min/{1.73_m2} Low >60 [facility] Comment on above: Result Comment: These results are not intended for use in patients <18 years of age. eGFR results are calculated without a race factor using the 2020 CKD-EPI equation. Careful clinical correlation is recommended, particularly when comparing to results calculated using previous equations. The CKD-EPI equation is less accurate in patients with extremes of muscle mass, extra-renal metabolism of creatine, excessive creatine ingestion, or following therapy that affects renal tubular secretion. Performed By: #### C DP, CP #### [address] [place] [address] Family Preservation Caseworker: Jabari Padgett MD Glucose [Mass/Vol] 116 mg/dL High 70-99 [facility] Comment on above: Performed By: #### C DP, CP #### [facility] [address] [place] [address] Family Preservation Caseworker: Jabari Padgett MD Potassium [Moles/Vol] 3.9 mmol/L Normal 3.7-5.3 [facility] Comment on above: Performed By: #### C DP, CP #### [address] [place] [address] Family Preservation Caseworker: Jabari Padgett MD Protein [Mass/Vol] 6.6 g/dL Normal 6.4-8.3 [facility] Comment on above: Performed By: #### C DP, CP #### [facility] [address] [place] [address] Family Preservation Caseworker: Jabari Padgett MD Sodium [Moles/Vol] 137 mmol/L Normal 135-144 [facility] Comment on above: Performed By: #### C DP, CP #### [facility] [address] [place] [address] Family Preservation Caseworker: Jabari Padgett MD Urea nitrogen [Mass/Vol] 48 mg/dL High 8-23 [facility] Comment on above: Performed By: #### C DEENA, CP #### [facility] [address] [place] [address] Family Preservation Caseworker: Jabari Padgett MD Comprehensive Metabolic Pane [facility] 09-16-2022 Albumin [Mass/Vol] 3.1 g/dL Low 3.5 - 5.2 g/dL [facility] Albumin/Globulin [Mass ratio] 0.9 {ratio} Low 1.0 - 2.5 [facility] ALP [Catalytic activity/Vol] 120 U/L 40 - 129 U/L [facility] ALT [Catalytic activity/Vol] 27 U/L 5 - 41 U/L [facility] Anion gap [Moles/Vol] 9 mmol/L 9 - 17 mmol/L [facility] AST [Catalytic activity/Vol] 21 U/L NINF - 40 U/L [facility] Bilirubin [Mass/Vol] 0.3 mg/dL 0.3 - 1 .2 mg/dL [facility] Calcium [Mass/Vol] 8.8 mg/dL 8.6 - 10. 4 mg/dL [facility] Chloride [Moles/Vol] 101 mmol/L 98 - 10 7 mmol/L [facility] CO2 [Moles/Vol] 27 mmol/L 20 - 31 mmol/L [facility] Creatinine [Mass/Vol] 2.52 mg/dL High 0.70 - 1.20 mg/dL [facility] GFR/1.73 sq M.predicted MDRD (S/P/Bld) [Vol rate/Area] 26 mL/min/{1.73_m2} Low - PINF [facility] Comment on above: These results are not intended for use in patients <18 years of age. eGFR results are calculated without a race factor using the 2020 CKD-EPI equation. Careful clinical correlation is recommended, particularly when comparing to results calculated using previous equations. The CKD-EPI equation is less accurate in patients with extremes of muscle mass, extra-renal metabolism of creatine, excessive creatine ingestion, or following therapy that affects renal tubular secretion. Glucose [Mass/Vol] 116 mg/dL High 70 - 99 mg/dL [facility] Interpretation and review of laboratory results Abnormal [facility] Potassium [Moles/Vol] 3.9 mmol/L 3.7 - 5.3 mmol/L [facility] Protein [Mass/Vol] 6.6 g/dL 6.4 - 8.3 g/dL [facility] Sodium [Moles/Vol] 137 mmol/L 135 - 144 mmol/L [facility] Urea nitrogen [Mass/Vol] 48 mg/dL High 8 - 23 mg/dL [facility] Urea nitrogen/Creatinine (Bld) [Mass ratio] 19 9 - 20 [facility] CBC with Auto Differentialon 09-09-2022 Absolute Eos # 0.12 [place] [facility] Absolute Immature Granulocyte 0.06 [facility] Absolute Lymph # 1.97 [facility] Absolute Leslie # 0.68 [facility] Basophils Absolute [facility] Basophils/100 WBC (Bld) 0 % 0 - 2 % [facility] Eosinophils/100 WBC (Bld) 1 % 1 - 4 % [facility] Hematocrit (Bld) [Volume fraction] 38.0 % Low 40.7 - 50.3 % [facility] Hemoglobin (Bld) [Mass/Vol] 12.8 g/dL Low 13.0 - 17.0 g/dL [facility] Immature granulocytes/100 WBC (Bld) 1 % High 0 [facility] Interpretation and review of laboratory results Abnormal [facility] Lymphocytes/100 WBC (Bld) 22 % Low 24 - 43 % [facility] MCH (RBC) [Entitic mass] 30.7 pg 25.2 - 33.5 pg [facility] MCHC (RBC) [Mass/Vol] 33.7 g/dL 28.4 - 34.8 g/dL [facility] MCV (RBC) [Entitic vol] 91.1 fL 82.6 - 102.9 fL [facility] Monocytes/100 WBC (Bld) 8 % 3 - 12 % [facility] NRBC Automated 0.0 0.0 per 100 WBC [facility] Platelet distribution width (Bld) [Ratio] 12.9 % 11.8 - 14.4 % [facility] Platelet mean volume (Bld) [Entitic vol] 10.5 fL 8.1 - 13.5 fL [facility] Platelets (Bld) [#/Vol] 164 10*3/uL [facility] RBC (Bld) [#/Vol] 4.17 10*6/uL Low 4.21 - 5.7 7 m/uL [facility] Segmented neutrophils/100 WBC (Bld) 68 % High 36 - 65 % [facility] Segs Absolute 6.11 [facility] WBC (Bld) [#/Vol] 9.0 10*3/uL [facility] CBC with Diffon 09-09-2022 Abs. Basophil <0.03 Normal 0.00-0.20 [facility] Comment on above: Performed By: #### C DP, CP #### [facility] [address] [place] [address] Family Preservation Caseworker: Jabari Padgett MD Abs.Imm.Granulocyte 0.06 k/uL Normal 0.00-0.30 [facility] Comment on above: Performed By: #### C DP, CP #### [facility] [address] [place] [address] Family Preservation Caseworker: Jbaari Padgett MD Abs.Neutrophil (Seg) 6.11 k/uL Normal 1.50-8.10 [facility] Comment on above: Performed By: #### C DP, CP #### [address] [place], [facility]83 Family Preservation Caseworker: Jabari Padgett MD Basophils/100 WBC (Bld) 0 % Normal 0-2 [facility] Comment on above: Performed By: #### C DP, CP #### [address] [place], [place] [address] Family Preservation Caseworker: Jabari Padgett MD Eosinophils (Bld) [#/Vol] 0.12 10*3/uL Normal 0.00-0.44 [facility] Comment on above: Performed By: #### C DP, CP #### [address] [place], [facility]83 Family Preservation Caseworker: Jabari Padgett MD Eosinophils/100 WBC (Bld) 1 % Normal 1-4 [facility] Comment on above: Performed By: #### C DP, CP #### [address] [place], [facility]83 Family Preservation Caseworker: Jabari Padgett MD Erythrocyte distribution width (RBC) [Ratio] 12.9 % Normal 11.8-14.4 [facility] Comment on above: Performed By: #### C DP, CP #### [address] [place], [facility]83 Family Preservation Caseworker: Jabari Padgett MD Hematocrit (Bld) [Volume fraction] 38.0 % Low 40.7-50.3 [facility] Comment on above: Performed By: #### C DP, CP #### [address] [place], [facility]83 Family Preservation Caseworker: Jabari Padgett MD Hemoglobin (Bld) [Mass/Vol] 12.8 g/dL Low 13.0-17.0 [facility] Comment on above: Performed By: #### C DP, CP #### [facility] [address] [place], [place] [id number] Family Preservation Caseworker: Jabari Padgett MD Immature granulocytes/100 WBC (Bld) 1 % High 0 [facility] Comment on above: Performed By: #### C DP, CP #### [facility] [address] [place], [facility]83 Family Preservation Caseworker: Jabari Padgett MD Lymphocytes (Bld) [#/Vol] 1.97 10*3/uL Normal 1.10-3.70 [facility] Comment on above: Performed By: #### C DP, CP #### [address] [place], [facility]83 Family Preservation Caseworker: Jabari Padgett MD Lymphocytes/100 WBC (Bld) 22 % Low 24-43 [facility] Comment on above: Performed By: #### C DP, CP #### [address] [place], [facility]83 Family Preservation Caseworker: Jabari Padgett MD MCH (RBC) [Entitic mass] 30.7 pg Normal 25.2-33.5 [facility] Comment on above: Performed By: #### C DP, CP #### [address] [place], [facility]83 Family Preservation Caseworker: Jabari Padgett MD MCHC (RBC) [Mass/Vol] 33.7 g/dL Normal 28.4-34.8 [facility] Comment on above: Performed By: #### C DP, CP #### [address] [place] [address] Family Preservation Caseworker: Jabari Padgett MD MCV (RBC) [Entitic vol] 91.1 fL Normal 82.6-102.9 [facility] Comment on above: Performed By: #### C DP, CP #### [address] [place], [place] [id number] Family Preservation Caseworker: Jabari Padgett MD Monocytes (Bld) [#/Vol] 0.68 10*3/uL Normal 0.10-1.20 [facility] Comment on above: Performed By: #### C DP, CP #### [facility] [address] [place], [place] [id number] Family Preservation Caseworker: Jabari Padgett MD Monocytes/100 WBC (Bld) 8 % Normal 3-12 [facility] Comment on above: Performed By: #### C DP, CP #### [address] [place], [place] [address] Family Preservation Caseworker: Jabari Padgett MD Neutrophil (Seg) 68 % High 36-65 [facility] Comment on above: Performed By: #### C DP, CP #### [address] [place], [facility]83 Family Preservation Caseworker: Jabari Padgett MD NRBC Automated 0.0 per 100 WBC Normal 0.0 [facility] Comment on above: Performed By: #### C DP, CP #### [address] [place], [facility]83 Family Preservation Caseworker: Jabari Padgett MD Platelet mean volume (Bld) [Entitic vol] 10.5 fL Normal 8.1-13.5 [facility] Comment on above: Performed By: #### C DP, CP #### [address] [place], [facility]83 Family Preservation Caseworker: Jabari Padgett MD Platelets (Bld) [#/Vol] 164 10*3/uL Normal 138-453 [facility] Comment on above: Performed By: #### C DP, CP #### [address] [place], [place] [id number] Family Preservation Caseworker: Jabari Padgett MD RBC (Bld) [#/Vol] 4.17 10*6/uL Low 4.21-5.77 [facility] Comment on above: Performed By: #### C DP, CP #### [facility] [address] [place] [address] Family Preservation Caseworker: Jabari Padgett MD WBC (Bld) [#/Vol] 9.0 10*3/uL Normal 3.5-11.3 [facility] Comment on above: Performed By: #### C DP, CP #### [facility] [address] [place] [address] Family Preservation Caseworker: Jabari Padgett MD Comp Metabolic Profon 2022 Albumin [Mass/Vol] 3.1 g/dL Low 3.5-5.2 [facility] Comment on above: Performed By: #### C DP, CP #### [address] [place], [place] [id number] Family Preservation Caseworker: Jabari Padgett MD Albumin/Glob Ratio 0.8 Low 1.0-2.5 [facility] Comment on above: Performed By: #### C DP, CP #### [address] [place], [place] [id number] Family Preservation Caseworker: Jabari Padgett MD Alkaline Phos 136 U/L High 40-129 [facility] Comment on above: Performed By: #### C DP, CP #### [facility] [address] [place], [place] [id number] Family Preservation Caseworker: Jabari Padgett MD ALT [Catalytic activity/Vol] 34 U/L Normal 5-41 [facility] Comment on above: Performed By: #### C DP, CP #### [facility] [address] [place] [address] Family Preservation Caseworker: Jabari Padgett MD Anion gap [Moles/Vol] 9 mmol/L Normal 9-17 [facility] Comment on above: Performed By: #### C DP, CP #### [facility] [address] [place], [place] [id number] Family Preservation Caseworker: Jabari Padgett MD AST [Catalytic activity/Vol] 24 U/L Normal <40 [facility] Comment on above: Performed By: #### C DP, CP #### [facility] [address] [place], [place] [id number] Family Preservation Caseworker: Jabari Padgett MD Bilirubin [Mass/Vol] 0.4 mg/dL Normal 0.3-1.2 [facility] Comment on above: Performed By: #### C DP, CP #### [facility] [address] [place], [place] [id number] Family Preservation Caseworker: Jabari Padgett MD BUN/CRE Ratio 23 High 9-20 [facility] Comment on above: Performed By: #### C DP, CP #### [facility] [address] [place], [place] 1053183 Family Preservation Caseworker: Jabari Padgett MD Calcium [Mass/Vol] 9.1 mg/dL Normal 8.6-10.4 [facility] Comment on above: Performed By: #### C DP, CP #### [facility] [address] [place], [place] [address]83 Family Preservation Caseworker: Jabari Padgett MD Chloride [Moles/Vol] 105 mmol/L Normal 98-107 [facility] Comment on above: Performed By: #### C DP, CP #### [facility] [address] [place], [place] [id number] Family Preservation Caseworker: Jabari Padgett MD CO2 [Moles/Vol] 25 mmol/L Normal 20-31 [facility] Comment on above: Performed By: #### C DP, CP #### [facility] [address] [place], [place] [id number] Family Preservation Caseworker: Jabari Padgett MD Creatinine [Mass/Vol] 2.78 mg/dL High 0.70-1.20 [facility] Comment on above: Performed By: #### C DP, CP #### [address] [place] [address] Family Preservation Caseworker: Jabari Padgett MD GFR/1.73 sq M.predicted among non-blacks MDRD (S/P/Bld) [Vol rate/Area] 23 mL/min/{1.73_m2} Low >60 [facility] Comment on above: Result Comment: These results are not intended for use in patients <18 years of age. eGFR results are calculated without a race factor using the 2020 CKD-EPI equation. Careful clinical correlation is recommended, particularly when comparing to results calculated using previous equations. The CKD-EPI equation is less accurate in patients with extremes of muscle mass, extra-renal metabolism of creatine, excessive creatine ingestion, or following therapy that affects renal tubular secretion. Performed By: #### C DP, CP #### [facility] [address] [place] [address] [place] [address] Family Preservation Caseworker: Jabari Padgett MD Glucose [Mass/Vol] 175 mg/dL High 70-99 [facility] Comment on above: Performed By: #### C DP, CP #### [address] [place] [address] Family Preservation Caseworker: Jabari Padgett MD Potassium [Moles/Vol] 4.5 mmol/L Normal 3.7-5.3 [facility] Comment on above: Performed By: #### C DP, CP #### [address] [place] [address] Family Preservation Caseworker: Jabari Padgett MD Protein [Mass/Vol] 6.8 g/dL Normal 6.4-8.3 [facility] Comment on above: Performed By: #### C DP, CP #### [address] [place] [address] Family Preservation Caseworker: Jabari Padgett MD Sodium [Moles/Vol] 139 mmol/L Normal 135-144 [facility] Comment on above: Performed By: #### C DP, CP #### [facility] [address] [place] [address] Family Preservation Caseworker: Jabari Padgett MD Urea nitrogen [Mass/Vol] 65 mg/dL High 8-23 [facility] Comment on above: Performed By: #### C DP, CP #### [facility] [address] [place] [address] Family Preservation Caseworker: Jabari Padgett MD Comprehensive Metabolic Pane [facility] 09-09-2022 Albumin [Mass/Vol] 3.1 g/dL Low 3.5 - 5.2 g/dL [facility] Albumin/Globulin [Mass ratio] 0.8 {ratio} Low 1.0 - 2.5 [facility] ALP [Catalytic activity/Vol] 136 U/L High 40 - 129 U/L [facility] ALT [Catalytic activity/Vol] 34 U/L 5 - 41 U/L [facility] Anion gap [Moles/Vol] 9 mmol/L 9 - 17 mmol/L [facility] AST [Catalytic activity/Vol] 24 U/L NINF - 40 U/L [facility] Bilirubin [Mass/Vol] 0.4 mg/dL 0.3 - 1 .2 mg/dL [facility] Calcium [Mass/Vol] 9.1 mg/dL 8.6 - 10. 4 mg/dL [facility] Chloride [Moles/Vol] 105 mmol/L 98 - 10 7 mmol/L [facility] CO2 [Moles/Vol] 25 mmol/L 20 - 31 mmol/L [facility] Creatinine [Mass/Vol] 2.78 mg/dL High 0.70 - 1.20 mg/dL [facility] GFR/1.73 sq M.predicted MDRD (S/P/Bld) [Vol rate/Area] 23 mL/min/{1.73_m2} Low - PINF [facility] Comment on above: These results are not intended for use in patients <18 years of age. eGFR results are calculated without a race factor using the 2020 CKD-EPI equation. Careful clinical correlation is recommended, particularly when comparing to results calculated using previous equations. The CKD-EPI equation is less accurate in patients with extremes of muscle mass, extra-renal metabolism of creatine, excessive creatine ingestion, or following therapy that affects renal tubular secretion. Glucose [Mass/Vol] 175 mg/dL High 70 - 99 mg/dL [facility] Interpretation and review of laboratory results Abnormal [facility] Potassium [Moles/Vol] 4.5 mmol/L 3.7 - 5.3 mmol/L [facility] Protein [Mass/Vol] 6.8 g/dL 6.4 - 8.3 g/dL [facility] Sodium [Moles/Vol] 139 mmol/L 135 - 144 mmol/L [facility] Urea nitrogen [Mass/Vol] 65 mg/dL High 8 - 23 mg/dL [facility] Urea nitrogen/Creatinine (Bld) [Mass ratio] 23 High 9 - 20 [facility] Basic Metab w/rfx MGon 08-31 Anion gap [Moles/Vol] 7 mmol/L Low 9-17 [facility] Comment on above: Performed By: #### C AMBERLY SHAFFER BMPX #### [facility] [address] [place] [address] [place] [address] Family Preservation Caseworker: Jbaari Padgett MD BUN/CRE Ratio 18 Normal 9-20 [facility] Comment on above: Performed By: #### C AMBERLY SHAFFER BMPX #### [facility] [address] [place] [address] Family Preservation Caseworker: Jabari Padgett MD Calcium [Mass/Vol] 8.8 mg/dL Normal 8.6-10.4 [facility] Comment on above: Performed By: #### C AMBERLY SHAFFER BMPX #### [facility] [address] [place] [address] Family Preservation Caseworker: Jabari Padgett MD Chloride [Moles/Vol] 95 mmol/L Low 98-107 [facility] Comment on above: Performed By: #### C AMBERLY SHAFFER, BMPX #### [facility] [address] [place] [address] Family Preservation Caseworker: Jabari Padgett MD CO2 [Moles/Vol] 32 mmol/L High 20-31 [facility] Comment on above: Performed By: #### C AMBERLY SHAFFER, BMPX #### [facility] [address] [place] [address] Family Preservation Caseworker: Jabari Padgett MD Creatinine [Mass/Vol] 2.23 mg/dL High 0.70-1.20 [facility] Comment on above: Performed By: #### C AMBERLY SHAFFER, BMPX #### [facility] [address] [place] [address] Family Preservation Caseworker: Jabari Padgett MD GFR/1.73 sq M.predicted among non-blacks MDRD (S/P/Bld) [Vol rate/Area] 30 mL/min/{1.73_m2} Low >60 [facility] Comment on above: Result Comment: These results are not intended for use in patients <18 years of age. eGFR results are calculated without a race factor using the 2020 CKD-EPI equation. Careful clinical correlation is recommended, particularly when comparing to results calculated using previous equations. The CKD-EPI equation is less accurate in patients with extremes of muscle mass, extra-renal metabolism of creatine, excessive creatine ingestion, or following therapy that affects renal tubular secretion. Performed By: #### C AMBERLY SHAFFER, BMPX #### [facility] [address] [place] [address] Family Preservation Caseworker: Jabari Padgett MD Glucose [Mass/Vol] 221 mg/dL High 70-99 [facility] Comment on above: Performed By: #### C DEENA IPF, BMPX #### [facility] [address] [place], [place] [id number] Family Preservation Caseworker: Jabari Padgett MD Potassium [Moles/Vol] 4.2 mmol/L Normal 3.7-5.3 [facility] Comment on above: Performed By: #### C DP, IPF, BMPX #### [facility] [address] [place] [address] [place], [place] 5077383 Family Preservation Caseworker: Jabari Padgett MD Sodium [Moles/Vol] 134 mmol/L Low 135-144 [facility] Comment on above: Performed By: #### C DP, IPF, BMPX #### [facility] [address] [place], [place] 955[address]83 Family Preservation Caseworker: Jabari Padgett MD Urea nitrogen [Mass/Vol] 41 mg/dL High 8-23 [facility] Comment on above: Performed By: #### C DP, IPF, BMPX #### [address] [place], [place] 7003883 Family Preservation Caseworker: Jabari Padgett MD CBC with Diffon 08-31-2022 Abs. Basophil 0.03 k/uL Normal 0.00-0.20 [facility] Comment on above: Performed By: #### C DP, IPF, BMPX #### [address] [place], [place] [address]98[address]83 Family Preservation Caseworker: Jabari Padgett MD Abs.Imm.Granulocyte 0.03 k/uL Normal 0.00-0.30 [facility] Comment on above: Performed By: #### C DP, IPF, BMPX #### [address] [place], [place] 4016483 Family Preservation Caseworker: Jabari Padgett MD Abs.Neutrophil (Seg) 4.71 k/uL Normal 1.50-8.10 [facility] Comment on above: Performed By: #### C DP, IPF, BMPX #### [facility] [address] [place], [place] [id number] Family Preservation Caseworker: Jabari Padgett MD Basophils/100 WBC (Bld) 0 % Normal 0-2 [facility] Comment on above: Performed By: #### C DP, IPF, BMPX #### [facility] [address] [place], [place] 8405783 Family Preservation Caseworker: Jabari Padgett MD Eosinophils (Bld) [#/Vol] 0.11 10*3/uL Normal 0.00-0.44 [facility] Comment on above: Performed By: #### C DP, IPF, BMPX #### [facility] [address] [place] [address] Family Preservation Caseworker: Jabari Padgett MD Eosinophils/100 WBC (Bld) 2 % Normal 1-4 [facility] Comment on above: Performed By: #### C DP, IPF, BMPX #### [facility] [address] [place], [place] [phone] Family Preservation Caseworker: Jabari Padgett MD Erythrocyte distribution width (RBC) [Ratio] 12.9 % Normal 11.8-14.4 [facility] Comment on above: Performed By: #### C DP, IPF, BMPX #### [facility] [address] [place], [place] 3979383 Family Preservation Caseworker: Jabari Padgett MD Hematocrit (Bld) [Volume fraction] 37.8 % Low 40.7-50.3 [facility] Comment on above: Performed By: #### C DP, IPF, BMPX #### [facility] [address] [place], [facility]83 Family Preservation Caseworker: Jabari Padgett MD Hemoglobin (Bld) [Mass/Vol] 13.1 g/dL Normal 13.0-17.0 [facility] Comment on above: Performed By: #### C DP, IPF, BMPX #### [facility] [address] [place], [place] [phone] Family Preservation Caseworker: Jabari Padgett MD Immature granulocytes/100 WBC (Bld) 0 % Normal 0 [facility] Comment on above: Performed By: #### C DP, IPF, BMPX #### [facility] [address] [place], [place] [address]83 Family Preservation Caseworker: Jabari Padgett MD Lymphocytes (Bld) [#/Vol] 1.59 10*3/uL Normal 1.10-3.70 [facility] Comment on above: Performed By: #### C DP, IPF, BMPX #### [facility] [address] [place], [place] [id number] Family Preservation Caseworker: Jabari Padgett MD Lymphocytes/100 WBC (Bld) 22 % Low 24-43 [facility] Comment on above: Performed By: #### C DP, IPF, BMPX #### [facility] [address] [place] 9265583 Family Preservation Caseworker: Jabari Padgett MD MCH (RBC) [Entitic mass] 31.3 pg Normal 25.2-33.5 [facility] Comment on above: Performed By: #### C DP, IPF, BMPX #### [address] [place], [place] [id number] Family Preservation Caseworker: Jabari Padgett MD MCHC (RBC) [Mass/Vol] 34.7 g/dL Normal 28.4-34.8 [facility] Comment on above: Performed By: #### C DP, IPF, BMPX #### [address] [place], [place] 0801183 Family Preservation Caseworker: Jabari Padgett MD MCV (RBC) [Entitic vol] 90.2 fL Normal 82.6-102.9 [facility] Comment on above: Performed By: #### C DP, IPF, BMPX #### [facility] [address] [place], [place] [address]83 Family Preservation Caseworker: Jabari Padgett MD Monocytes (Bld) [#/Vol] 0.73 10*3/uL Normal 0.10-1.20 [facility] Comment on above: Performed By: #### C DP, IPF, BMPX #### [facility] [address] [place], [place] [phone] Family Preservation Caseworker: Jabari Padgett MD Monocytes/100 WBC (Bld) 10 % Normal 3-12 [facility] Comment on above: Performed By: #### C DP, IPF, BMPX #### [facility] [address] [place], [place] [phone] Family Preservation Caseworker: Jabari Padgett MD Neutrophil (Seg) 66 % High 36-65 [facility] Comment on above: Performed By: #### C DP, IPF, BMPX #### [address] [place], [place] [address]19183 Family Preservation Caseworker: Jabari Padgett MD NRBC Automated 0.0 per 100 WBC Normal 0.0 [facility] Comment on above: Performed By: #### C DP, IPF, BMPX #### [address] [place], [place] 1505283 Family Preservation Caseworker: Jabari Padgett MD Platelet Count See Reflexed IPF Result Normal 138-453 [facility] Comment on above: Performed By: #### C DP, IPF, BMPX #### [address] [place], [place] 6465583 Family Preservation Caseworker: Jabari Padgett MD RBC (Bld) [#/Vol] 4.19 10*6/uL Low 4.21-5.77 [facility] Comment on above: Performed By: #### C DP, IPF, BMPX #### [address] [place], [place] 2426783 Family Preservation Caseworker: Jabari Padgett MD WBC (Bld) [#/Vol] 7.2 10*3/uL Normal 3.5-11.3 [facility] Comment on above: Performed By: #### C DP, IPF, BMPX #### [address] [place], [place] 1913283 Family Preservation Caseworker: Jabari Padgett MD PLT, Immature Fract.on 08-31 Platelet, Fluoresc. 124 k/uL Low 138-453 [facility] Comment on above: Performed By: #### C DP, IPF, BMPX #### [facility] [address] [place], [place] 448[address] Family Preservation Caseworker: Jabari Padgett MD PLT, Immature Fract. 3.3 % Normal 1.1-10.3 [facility] Comment on above: Performed By: #### C DP, IPF, BMPX #### [facility] [address] [place] [id number] Family Preservation Caseworker: Jabari Padgett MD Basic Metab w/rfx MGon 08-30 Anion gap [Moles/Vol] 9 mmol/L Normal 9-17 [facility] Comment on above: Performed By: #### C DP, BMPX, IPF #### [address] [place], [place] [id number] Family Preservation Caseworker: Jabari Padgett MD BUN/CRE Ratio 17 Normal 9-20 [facility] Comment on above: Performed By: #### C DP, BMPX, IPF #### [address] [place], [place] 5854883 Family Preservation Caseworker: Jabari Padgett MD Calcium [Mass/Vol] 8.5 mg/dL Low 8.6-10.4 [facility] Comment on above: Performed By: #### C DP, BMPX, IPF #### [facility] [address] [place] [address] Family Preservation Caseworker: Jabari Padgett MD Chloride [Moles/Vol] 96 mmol/L Low 98-107 [facility] Comment on above: Performed By: #### C DP, BMPX, IPF #### [facility] [address] [place] [address] Family Preservation Caseworker: Jabari Padgett MD CO2 [Moles/Vol] 29 mmol/L Normal 20-31 [facility] Comment on above: Performed By: #### C DP, BMPX, IPF #### [facility] [address] [place] [address] Family Preservation Caseworker: Jabari Padgett MD Creatinine [Mass/Vol] 2.29 mg/dL High 0.70-1.20 [facility] Comment on above: Performed By: #### C DP, BMPX, IPF #### [facility] [address] [place] [address] Family Preservation Caseworker: Jabari Padgett MD GFR/1.73 sq M.predicted among non-blacks MDRD (S/P/Bld) [Vol rate/Area] 29 mL/min/{1.73_m2} Low >60 [facility] Comment on above: Result Comment: These results are not intended for use in patients <18 years of age. eGFR results are calculated without a race factor using the 2020 CKD-EPI equation. Careful clinical correlation is recommended, particularly when comparing to results calculated using previous equations. The CKD-EPI equation is less accurate in patients with extremes of muscle mass, extra-renal metabolism of creatine, excessive creatine ingestion, or following therapy that affects renal tubular secretion. Performed By: #### C DP, BMPX, IPF #### [address] [place] [address] Family Preservation Caseworker: Jabari Padgett MD Glucose [Mass/Vol] 244 mg/dL High 70-99 [facility] Comment on above: Performed By: #### C DP, BMPX, IPF #### [facility] [address] [place] [address] Family Preservation Caseworker: Jabari Padgett MD Potassium [Moles/Vol] 4.3 mmol/L Normal 3.7-5.3 [facility] Comment on above: Performed By: #### C DP, BMPX, IPF #### [facility] [address] [place] [id number] Family Preservation Caseworker: Jabari Padgett MD Sodium [Moles/Vol] 134 mmol/L Low 135-144 [facility] Comment on above: Performed By: #### C DP, BMPX, IPF #### [facility] [address] [place], [place] [id number] Family Preservation Caseworker: Jabari Padgett MD Urea nitrogen [Mass/Vol] 40 mg/dL High 8-23 [facility] Comment on above: Performed By: #### C DP, BMPX, IPF #### [facility] [address] [place], [place] [id number] Family Preservation Caseworker: Jabari Padgett MD CBC with Diffon 08-30-2022 Abs. Basophil <0.03 Normal 0.00-0.20 [facility] Comment on above: Performed By: #### C DP, BMPX, IPF #### [facility] [address] [place], [place] [id number] Family Preservation Caseworker: Jabari Padgett MD Abs.Imm.Granulocyte 0.04 k/uL Normal 0.00-0.30 [facility] Comment on above: Performed By: #### C DP, BMPX, IPF #### [facility] [address] [place], [place] [id number] Family Preservation Caseworker: Jabari Padgett MD Abs.Neutrophil (Seg) 5.56 k/uL Normal 1.50-8.10 [facility] Comment on above: Performed By: #### C DP, BMPX, IPF #### [facility] [address] [place], [place] [id number] Family Preservation Caseworker: Jabari Padgett MD Basophils/100 WBC (Bld) 0 % Normal 0-2 [facility] Comment on above: Performed By: #### C DP, BMPX, IPF #### [facility] [address] [place], [place] [id number] Family Preservation Caseworker: Jabari Padgett MD Eosinophils (Bld) [#/Vol] 0.06 10*3/uL Normal 0.00-0.44 [facility] Comment on above: Performed By: #### C DP, BMPX, IPF #### [facility] [address] [place], [place] [id number] Family Preservation Caseworker: Jabari Padgett MD Eosinophils/100 WBC (Bld) 1 % Normal 1-4 [facility] Comment on above: Performed By: #### C DP, BMPX, IPF #### [facility] [address] [place] [address] Family Preservation Caseworker: Jabari Padgett MD Erythrocyte distribution width (RBC) [Ratio] 12.7 % Normal 11.8-14.4 [facility] Comment on above: Performed By: #### C DP, BMPX, IPF #### [facility] [address] [place] [address] Dr[address] [place], [place] [id number] Family Preservation Caseworker: Jabari Padgett MD Hematocrit (Bld) [Volume fraction] 36.2 % Low 40.7-50.3 [facility] Comment on above: Performed By: #### C DP, BMPX, IPF #### [address] [place], [place] 4995083 Family Preservation Caseworker: Jabari Padgett MD Hemoglobin (Bld) [Mass/Vol] 12.5 g/dL Low 13.0-17.0 [facility] Comment on above: Performed By: #### C DP, BMPX, IPF #### [facility] [address] [place], [place] 1336983 Family Preservation Caseworker: Jabari Padgett MD Immature granulocytes/100 WBC (Bld) 1 % High 0 [facility] Comment on above: Performed By: #### C DP, BMPX, IPF #### [facility] [address] [place], [place] [id number] Family Preservation Caseworker: Jabari Padgett MD Lymphocytes (Bld) [#/Vol] 1.75 10*3/uL Normal 1.10-3.70 [facility] Comment on above: Performed By: #### C DP, BMPX, IPF #### [facility] [address] [place], [place] [id number] Family Preservation Caseworker: Jabari Padgett MD Lymphocytes/100 WBC (Bld) 22 % Low 24-43 [facility] Comment on above: Performed By: #### C DP, BMPX, IPF #### [facility] [address] [place] [address] Family Preservation Caseworker: Jabari Padgett MD MCH (RBC) [Entitic mass] 30.9 pg Normal 25.2-33.5 [facility] Comment on above: Performed By: #### C DP, BMPX, IPF #### [address] [place] [id number] Family Preservation Caseworker: Jabari Padgett MD MCHC (RBC) [Mass/Vol] 34.5 g/dL Normal 28.4-34.8 [facility] Comment on above: Performed By: #### C DP, BMPX, IPF #### [address] [place], [place] 6661683 Family Preservation Caseworker: Jabari Padgett MD MCV (RBC) [Entitic vol] 89.4 fL Normal 82.6-102.9 [facility] Comment on above: Performed By: #### C DP, BMPX, IPF #### [facility] [address] [place] [address] Family Preservation Caseworker: Jabari Padgett MD Monocytes (Bld) [#/Vol] 0.64 10*3/uL Normal 0.10-1.20 [facility] Comment on above: Performed By: #### C DP, BMPX, IPF #### [facility] [address] [place], [place] [id number] Family Preservation Caseworker: Jabari Padgett MD Monocytes/100 WBC (Bld) 8 % Normal 3-12 [facility] Comment on above: Performed By: #### C DP, BMPX, IPF #### [facility] [address] [place], [place] 1750383 Family Preservation Caseworker: Jabari Padgett MD Neutrophil (Seg) 69 % High 36-65 [facility] Comment on above: Performed By: #### C DP, BMPX, IPF #### [facility] [address] [place], [place] [phone] Family Preservation Caseworker: Jabari Padgett MD NRBC Automated 0.0 per 100 WBC Normal 0.0 [facility] Comment on above: Performed By: #### C DP, BMPX, IPF #### [facility] [address] [place], [place] [id number] Family Preservation Caseworker: Jabari Padgett MD Platelet Count See Reflexed IPF Result Normal 138-453 [facility] Comment on above: Performed By: #### C DP, BMPX, IPF #### [facility] [address] [place], [place] 0155783 Family Preservation Caseworker: Jabari Padgett MD RBC (Bld) [#/Vol] 4.05 10*6/uL Low 4.21-5.77 [facility] Comment on above: Performed By: #### C DP, BMPX, IPF #### [facility] [address] [place] [address] [place] [address] Family Preservation Caseworker: Jabari Padgett MD WBC (Bld) [#/Vol] 8.1 10*3/uL Normal 3.5-11.3 [facility] Comment on above: Performed By: #### C DP, BMPX, IPF #### [facility] [address] [place], [place] 4166083 Family Preservation Caseworker: Jabari Padgett MD PLT, Immature Fract.on 08-30 Platelet, Fluoresc. 141 k/uL Normal 138-453 [facility] Comment on above: Performed By: #### C DP, BMPX, IPF #### [facility] [address] [place] [address] Family Preservation Caseworker: Jabari Padgett MD PLT, Immature Fract. 3.1 % Normal 1.1-10.3 [facility] Comment on above: Performed By: #### C DP, BMPX, IPF #### [facility] [address] [place] [address] Family Preservation Caseworker: Jabari Padgett MD [id number] 08-30-2022 SARS-CoV-2 (COVID-19) RNA USHA+probe Ql (Unsp spec) Detected Abnormal NOTDET [facility] Comment on above: Result Comment: Rapid NAAT: The specimen is POSITIVE for SARS-Cov-2, the novel coronavirus associated with COVID-19. This test has been authorized by the FDA under an Emergency Use Authorization (EUA) for use by authorized laboratories. The ID NOW COVID-19 assay is designed to detect the virus that causes COVID-19 in patients with signs and symptoms of infection who are suspected of COVID-19. An individual without symptoms of COVID-19 and who is not shedding SARS-CoV-2 virus would expect to have a negative (not detected) result in this assay. Fact sheet for Healthcare Providers: https://www.fda.gov/media/677938/download Fact sheet for Patients: https://www.fda.gov/media/613837/download Methodology: Isothermal Nucleic Acid Amplification Results reported to the appropriate Health Department Performed By: #### C DP, CP #### [facility] [address] [place] [address] Family Preservation Caseworker: Jabari Padgett MD Basic Metab w/rfx MGon 08-292 Anion gap [Moles/Vol] 9 mmol/L Normal 9-17 [facility] Comment on above: Performed By: #### C DP, CP #### [facility] [address] [place] [address] Family Preservation Caseworker: Jabari Padgett MD BUN/CRE Ratio 15 Normal 9-20 [facility] Comment on above: Performed By: #### C DP, CP #### [facility] [address] [place], [place] 368[address]83 Family Preservation Caseworker: Jabari Padgett MD Calcium [Mass/Vol] 8.7 mg/dL Normal 8.6-10.4 [facility] Comment on above: Performed By: #### C DP, CP #### [facility] [address] [place], [place] 06[address]83 Family Preservation Caseworker: Jabari Padgett MD Chloride [Moles/Vol] 99 mmol/L Normal 98-107 [facility] Comment on above: Performed By: #### C DP, CP #### [facility] [address] [place] [address] Family Preservation Caseworker: Jabari Padgett MD CO2 [Moles/Vol] 29 mmol/L Normal 20-31 [facility] Comment on above: Performed By: #### C DP, CP #### [facility] [address] [place], [place] 4037783 Family Preservation Caseworker: Jabari Padgett MD Creatinine [Mass/Vol] 2.21 mg/dL High 0.70-1.20 [facility] Comment on above: Performed By: #### C DP, CP #### [facility] [address] [place], [place] 1922683 Family Preservation Caseworker: Jabari Padgett MD GFR/1.73 sq M.predicted among non-blacks MDRD (S/P/Bld) [Vol rate/Area] 30 mL/min/{1.73_m2} Low >60 [facility] Comment on above: Result Comment: These results are not intended for use in patients <18 years of age. eGFR results are calculated without a race factor using the 2020 CKD-EPI equation. Careful clinical correlation is recommended, particularly when comparing to results calculated using previous equations. The CKD-EPI equation is less accurate in patients with extremes of muscle mass, extra-renal metabolism of creatine, excessive creatine ingestion, or following therapy that affects renal tubular secretion. Performed By: #### C DP, CP #### [facility] [address] [place], [place] [id number] Family Preservation Caseworker: Jabari Padgett MD Glucose [Mass/Vol] 167 mg/dL High 70-99 [facility] Comment on above: Performed By: #### C DP, CP #### [facility] [address] [place] [id number] Family Preservation Caseworker: Jabari Padgett MD Potassium [Moles/Vol] 4.6 mmol/L Normal 3.7-5.3 [facility] Comment on above: Performed By: #### C DP, CP #### [address] [place] [id number] Family Preservation Caseworker: Jabari Padgett MD Sodium [Moles/Vol] 137 mmol/L Normal 135-144 [facility] Comment on above: Performed By: #### C DP, CP #### [address] [place] [address] Family Preservation Caseworker: Jabari Padgett MD Urea nitrogen [Mass/Vol] 33 mg/dL High 8-23 [facility] Comment on above: Performed By: #### C DP, CP #### [facility] [address] [place] [address] Dr[address] [place], [facility]83 Family Preservation Caseworker: Jabari Padgett MD CBC with Diffon 08-29-2022 Abs. Basophil 0.04 k/uL Normal 0.00-0.20 [facility] Comment on above: Performed By: #### B AMBERLY MEIER, CDP #### [facility] [address] [place] [address] [place], [place] 9297783 Family Preservation Caseworker: Jabari Padgett MD Abs.Imm.Granulocyte 0.04 k/uL Normal 0.00-0.30 [facility] Comment on above: Performed By: #### B AMBERLY MEIER, CDP #### [facility] [address] [place], [facility]83 Family Preservation Caseworker: Jabari Padgett MD Abs.Neutrophil (Seg) 6.05 k/uL Normal 1.50-8.10 [facility] Comment on above: Performed By: #### B MPX, IPF, CDP #### [address] [place], [facility]83 Family Preservation Caseworker: Jabari Padgett MD Basophils/100 WBC (Bld) 0 % Normal 0-2 [facility] Comment on above: Performed By: #### B MPX, IPF, CDP #### [address] [place], [place] [address] Family Preservation Caseworker: Jabari Padgett MD Eosinophils (Bld) [#/Vol] 0.09 10*3/uL Normal 0.00-0.44 [facility] Comment on above: Performed By: #### B MPX, IPF, CDP #### [address] [place], [facility]83 Family Preservation Caseworker: Jabari Padgett MD Eosinophils/100 WBC (Bld) 1 % Normal 1-4 [facility] Comment on above: Performed By: #### B MPX, IPF, CDP #### [address] [place], [facility]83 Family Preservation Caseworker: Jabari Padgett MD Erythrocyte distribution width (RBC) [Ratio] 13.0 % Normal 11.8-14.4 [facility] Comment on above: Performed By: #### B MPX, IPF, CDP #### [address] [place] [address] Family Preservation Caseworker: Jabari Padgett MD Hematocrit (Bld) [Volume fraction] 38.6 % Low 40.7-50.3 [facility] Comment on above: Performed By: #### B MPX, IPF, CDP #### [address] [place] [address] Family Preservation Caseworker: Jabari Padgett MD Hemoglobin (Bld) [Mass/Vol] 13.2 g/dL Normal 13.0-17.0 [facility] Comment on above: Performed By: #### B MPX, IPF, CDP #### [address] [place] [address] Family Preservation Caseworker: Jabari Padgett MD Immature granulocytes/100 WBC (Bld) 0 % Normal 0 [facility] Comment on above: Performed By: #### B MPX, IPF, CDP #### [address] [place] [address] Family Preservation Caseworker: Jabari Padgett MD Lymphocytes (Bld) [#/Vol] 1.93 10*3/uL Normal 1.10-3.70 [facility] Comment on above: Performed By: #### B MPX, IPF, CDP #### [address] [place], [facility]83 Family Preservation Caseworker: Jabari Padgett MD Lymphocytes/100 WBC (Bld) 21 % Low 24-43 [facility] Comment on above: Performed By: #### B MPX, IPF, CDP #### [address] [place] [address] Family Preservation Caseworker: Jabari Padgett MD MCH (RBC) [Entitic mass] 31.3 pg Normal 25.2-33.5 [facility] Comment on above: Performed By: #### B MPX, IPF, CDP #### [address] [place] [address] Family Preservation Caseworker: Jabari Padgett MD MCHC (RBC) [Mass/Vol] 34.2 g/dL Normal 28.4-34.8 [facility] Comment on above: Performed By: #### B MPX, IPF, CDP #### [facility] [address] [place] [address] [place], [place] 3068083 Family Preservation Caseworker: Jabari Padgett MD MCV (RBC) [Entitic vol] 91.5 fL Normal 82.6-102.9 [facility] Comment on above: Performed By: #### B MPX, IPF, CDP #### [facility] [address] [place], [place] 5529383 Family Preservation Caseworker: Jabari Padgett MD Monocytes (Bld) [#/Vol] 0.90 10*3/uL Normal 0.10-1.20 [facility] Comment on above: Performed By: #### B MPX, IPF, CDP #### [address] [place], [place] 8366383 Family Preservation Caseworker: Jabari Padgett MD Monocytes/100 WBC (Bld) 10 % Normal 3-12 [facility] Comment on above: Performed By: #### B MPX, IPF, CDP #### [address] [place], [place] 4322483 Family Preservation Caseworker: Jabari Padgett MD Neutrophil (Seg) 67 % High 36-65 [facility] Comment on above: Performed By: #### B MPX, IPF, CDP #### [address] [place], [place] 6953483 Family Preservation Caseworker: Jabari Padgett MD NRBC Automated 0.0 per 100 WBC Normal 0.0 [facility] Comment on above: Performed By: #### B MPX, IPF, CDP #### [facility] [address] [place] [address] Family Preservation Caseworker: Jabari Padgett MD Platelet Count See Reflexed IPF Result Normal 138-453 [facility] Comment on above: Performed By: #### B MPX, IPF, CDP #### [facility] [address] [place], [place] 5280083 Family Preservation Caseworker: Jabari Padgett MD RBC (Bld) [#/Vol] 4.22 10*6/uL Normal 4.21-5.77 [facility] Comment on above: Performed By: #### B MPX, IPF, CDP #### [facility] [address] [place], [place] 6468683 Family Preservation Caseworker: Jabari Padgett MD WBC (Bld) [#/Vol] 9.1 10*3/uL Normal 3.5-11.3 [facility] Comment on above: Performed By: #### B MPX, IPF, CDP #### [facility] [address] [place], [place] 7826283 Family Preservation Caseworker: Jabari Padgett MD PLT, Immature Fract.on 08-29 Platelet, Fluoresc. 136 k/uL Low 138-453 [facility] Comment on above: Performed By: #### B LENINXAMBERLY, CDP #### [facility] [address] [place], [place] 4099883 Family Preservation Caseworker: Jabari Padgett MD PLT, Immature Fract. 2.5 % Normal 1.1-10.3 [facility] Comment on above: Performed By: #### B MPX IPF, CDP #### [facility] [address] [place], [place] 3284883 Family Preservation Caseworker: Jabari Padgett MD 36on 08-28-2022 36 REILLY Tim from [facility] stating patient was admitted 08/27/2022 for abdominal pain, thank you! Normal [facility] Basic Metab w/rfx MGon 08-28 Anion gap [Moles/Vol] 9 mmol/L Normal 9-17 [facility] Comment on above: Performed By: #### C DP, CP #### [facility] [address] [place] [address] Family Preservation Caseworker: Jabari Padegtt MD BUN/CRE Ratio 18 Normal 9-20 [facility] Comment on above: Performed By: #### C DP, CP #### [facility] [address] [place], [place] 4839983 Family Preservation Caseworker: Jabari Padgett MD Calcium [Mass/Vol] 9.1 mg/dL Normal 8.6-10.4 [facility] Comment on above: Performed By: #### C DP, CP #### [facility] [address] [place] [address] Family Preservation Caseworker: Jabari Padgett MD Chloride [Moles/Vol] 104 mmol/L Normal 98-107 [facility] Comment on above: Performed By: #### C DP, CP #### [facility] [address] [place], [place] [id number] Family Preservation Caseworker: Jabari Padgett MD CO2 [Moles/Vol] 24 mmol/L Normal 20-31 [facility] Comment on above: Performed By: #### C DP, CP #### [facility] [address] [place], [place] [id number] Family Preservation Caseworker: Jabari Padgett MD Creatinine [Mass/Vol] 1.97 mg/dL High 0.70-1.20 [facility] Comment on above: Performed By: #### C DP, CP #### [facility] [address] [place] [address] [place], [place] [id number] Family Preservation Caseworker: Jabari Padgett MD GFR/1.73 sq M.predicted among non-blacks MDRD (S/P/Bld) [Vol rate/Area] 34 mL/min/{1.73_m2} Low >60 [facility] Comment on above: Result Comment: These results are not intended for use in patients <18 years of age. eGFR results are calculated without a race factor using the 2020 CKD-EPI equation. Careful clinical correlation is recommended, particularly when comparing to results calculated using previous equations. The CKD-EPI equation is less accurate in patients with extremes of muscle mass, extra-renal metabolism of creatine, excessive creatine ingestion, or following therapy that affects renal tubular secretion. Performed By: #### C DP, CP #### [facility] [address] [place], [place] [id number] Family Preservation Caseworker: Jabari Padgett MD Glucose [Mass/Vol] 150 mg/dL High 70-99 [facility] Comment on above: Performed By: #### C DP, CP #### [facility] [address] [place], [place] 1099083 Family Preservation Caseworker: Jabari Padgtet MD Potassium [Moles/Vol] 4.3 mmol/L Normal 3.7-5.3 [facility] Comment on above: Performed By: #### C DP, CP #### [address] [place], [place] 3988483 Family Preservation Caseworker: Jabari Padgett MD Sodium [Moles/Vol] 137 mmol/L Normal 135-144 [facility] Comment on above: Performed By: #### C DP, CP #### [facility] [address] [place] [address] [place], [place] 0354483 Family Preservation Caseworker: Jabari Padgett MD Urea nitrogen [Mass/Vol] 35 mg/dL High 8-23 [facility] Comment on above: Performed By: #### C DP, CP #### [address] [place], [place] 9490483 Family Preservation Caseworker: Jabari Padgett MD CBC with Diffon 08-28-2022 Abs. Basophil 0.03 k/uL Normal 0.00-0.20 [facility] Comment on above: Performed By: #### C DP, CP #### [facility] [address] [place], [place] [id number] Family Preservation Caseworker: Jabari Padgett MD Abs.Imm.Granulocyte <0.03 Normal 0.00-0.30 [facility] Comment on above: Performed By: #### C DP, CP #### [facility] [address] [place], [place] 4579983 Family Preservation Caseworker: Jabari Padgett MD Abs.Neutrophil (Seg) 5.01 k/uL Normal 1.50-8.10 [facility] Comment on above: Performed By: #### C DP, CP #### [address] [place], [place] [address] Family Preservation Caseworker: Jabari Padgett MD Basophils/100 WBC (Bld) 0 % Normal 0-2 [facility] Comment on above: Performed By: #### C DP, CP #### [address] [place], [place] [address] Family Preservation Caseworker: Jabari Padgett MD Eosinophils (Bld) [#/Vol] 0.12 10*3/uL Normal 0.00-0.44 [facility] Comment on above: Performed By: #### C DP, CP #### [address] [place], [place] [address] Family Preservation Caseworker: Jabari Padgett MD Eosinophils/100 WBC (Bld) 2 % Normal 1-4 [facility] Comment on above: Performed By: #### C DP, CP #### [address] [place], [place] [address] Family Preservation Caseworker: Jabari Padgett MD Erythrocyte distribution width (RBC) [Ratio] 13.0 % Normal 11.8-14.4 [facility] Comment on above: Performed By: #### C DP, CP #### [address] [place], [place] [address] Family Preservation Caseworker: Jabari Padgett MD Hematocrit (Bld) [Volume fraction] 38.9 % Low 40.7-50.3 [facility] Comment on above: Performed By: #### C DP, CP #### [address] [place], [facility]83 Family Preservation Caseworker: Jabari Padgett MD Hemoglobin (Bld) [Mass/Vol] 13.6 g/dL Normal 13.0-17.0 [facility] Comment on above: Performed By: #### C DP, CP #### [facility] [address] [place], [place] [id number] Family Preservation Caseworker: Jabari Padgett MD Immature granulocytes/100 WBC (Bld) 0 % Normal 0 [facility] Comment on above: Performed By: #### C DP, CP #### [address] [place], [place] [address] Family Preservation Caseworker: Jabari Padgett MD Lymphocytes (Bld) [#/Vol] 1.86 10*3/uL Normal 1.10-3.70 [facility] Comment on above: Performed By: #### C DP, CP #### [address] [place], [facility]83 Family Preservation Caseworker: Jabari Padgett MD Lymphocytes/100 WBC (Bld) 23 % Low 24-43 [facility] Comment on above: Performed By: #### C DP, CP #### [address] [place], [facility]83 Family Preservation Caseworker: Jabari Padgett MD MCH (RBC) [Entitic mass] 32.1 pg Normal 25.2-33.5 [facility] Comment on above: Performed By: #### C DP, CP #### [address] [place], [facility]83 Family Preservation Caseworker: Jabari Padgett MD MCHC (RBC) [Mass/Vol] 35.0 g/dL High 28.4-34.8 [facility] Comment on above: Performed By: #### C DP, CP #### [address] [place], [place] [id number] Family Preservation Caseworker: Jabari Padgett MD MCV (RBC) [Entitic vol] 91.7 fL Normal 82.6-102.9 [facility] Comment on above: Performed By: #### C DP, CP #### [facility] [address] [place], [place] [id number] Family Preservation Caseworker: Jabari Padgett MD Monocytes (Bld) [#/Vol] 0.92 10*3/uL Normal 0.10-1.20 [facility] Comment on above: Performed By: #### C DP, CP #### [facility] [address] [place], [place] [id number] Family Preservation Caseworker: Jabari Padgett MD Monocytes/100 WBC (Bld) 12 % Normal 3-12 M [facility] Comment on above: Performed By: #### C DP, CP #### [address] [place], [place] [id number] Family Preservation Caseworker: Jabari Padgett MD Neutrophil (Seg) 63 % Normal 36-65 [facility] Comment on above: Performed By: #### C DP, CP #### [address] [place], [place] [id number] Family Preservation Caseworker: Jabari Padgett MD NRBC Automated 0.0 per 100 WBC Normal 0.0 [facility] Comment on above: Performed By: #### C DP, CP #### [address] [place], [place] [id number] Family Preservation Caseworker: Jabari Padgett MD Platelet Count See Reflexed IPF Result Normal 138-453 [facility] Comment on above: Performed By: #### C DP, CP #### [address] [place], [place] [id number] Family Preservation Caseworker: Jabari Padgett MD RBC (Bld) [#/Vol] 4.24 10*6/uL Normal 4.21-5.77 [facility] Comment on above: Performed By: #### C DP, CP #### [address] [place], [place] [id number] Family Preservation Caseworker: Jabari Padgett MD WBC (Bld) [#/Vol] 8.0 10*3/uL Normal 3.5-11.3 [facility] Comment on above: Performed By: #### C DP, CP #### [facility] [address] [place] [address] Family Preservation Caseworker: Jabari Padgett MD Hemoglobin A1Con 08-28-2022 Glucose [Mass/Vol] 240 mg/dL Normal [facility] Comment on above: Result Comment: The ADA and AACC recommend providing the estimated average glucose result to permit better patient understanding of their HBA1c result. Performed By: #### C DP, CP #### [facility] [address] [place], [place] [id number] Family Preservation Caseworker: Jabari Padgett MD HbA1c (Bld) [Mass fraction] 10.0 % High 4.0-6.0 [facility] Comment on above: Performed By: #### C DP, CP #### [address] [place], [place] [id number] Family Preservation Caseworker: Jabari Padgett MD PLT, Immature Fract.on 08-28 Platelet, Fluoresc. 142 k/uL Normal 138-453 [facility] Comment on above: Performed By: #### C DP, CP #### [address] [place], [place] [id number] Family Preservation Caseworker: Jabari Padgett MD PLT, Immature Fract. 2.0 % Normal 1.1-10.3 [facility] Comment on above: Performed By: #### C DP, CP #### [facility] [address] [place], [place] [id number] Family Preservation Caseworker: Jabari Padgett MD Basic Metabolic Profon 08-27 Anion gap [Moles/Vol] 11 mmol/L Normal 9-17 [facility] Comment on above: Performed By: #### C DP, IPF, BMPX #### [facility] [address] [place] [address] Family Preservation Caseworker: Jabari Padgett MD BUN/CRE Ratio 17 Normal 9-20 [facility] Comment on above: Performed By: #### C DP, IPF, BMPX #### [facility] [address] [place] [address] Family Preservation Caseworker: Jabari Padgett MD Calcium [Mass/Vol] 9.2 mg/dL Normal 8.6-10.4 [facility] Comment on above: Performed By: #### C DP, IPF, BMPX #### [facility] [address] [place] [address] Family Preservation Caseworker: Jabari Padgett MD Chloride [Moles/Vol] 98 mmol/L Normal 98-107 [facility] Comment on above: Performed By: #### C DP, IPF, BMPX #### [facility] [address] [place] [address] Family Preservation Caseworker: Jabari Padgett MD CO2 [Moles/Vol] 25 mmol/L Normal 20-31 [facility] Comment on above: Performed By: #### C DP, IPF, BMPX #### [facility] [address] [place], [place] [phone] Family Preservation Caseworker: Jabari Padgett MD Creatinine [Mass/Vol] 2.37 mg/dL High 0.70-1.20 [facility] Comment on above: Performed By: #### C DP, IPF, BMPX #### [facility] [address] [place] [address] Family Preservation Caseworker: Jabari Padgett MD GFR/1.73 sq M.predicted among non-blacks MDRD (S/P/Bld) [Vol rate/Area] 28 mL/min/{1.73_m2} Low >60 [facility] Comment on above: Result Comment: These results are not intended for use in patients <18 years of age. eGFR results are calculated without a race factor using the 2020 CKD-EPI equation. Careful clinical correlation is recommended, particularly when comparing to results calculated using previous equations. The CKD-EPI equation is less accurate in patients with extremes of muscle mass, extra-renal metabolism of creatine, excessive creatine ingestion, or following therapy that affects renal tubular secretion. Performed By: #### C AMBERLY SHAFFER, BMPX #### [facility] [address] [place], [place] [phone] Family Preservation Caseworker: Jabari Padgett MD Glucose [Mass/Vol] 247 mg/dL High 70-99 [facility] Comment on above: Performed By: #### C DP IPF, BMPX #### [facility] [address] [place] [address] Family Preservation Caseworker: aJbari Padgett MD Potassium [Moles/Vol] 4.8 mmol/L Normal 3.7-5.3 [facility] Comment on above: Performed By: #### C DEENA IPF, BMPX #### [address] [place] [address] Family Preservation Caseworker: Jabari Padgett MD Sodium [Moles/Vol] 134 mmol/L Low 135-144 [facility] Comment on above: Performed By: #### C AMBERLY SHAFFER, BMPX #### [address] [place] [address] Family Preservation Caseworker: Jabari Padgett MD Urea nitrogen [Mass/Vol] 41 mg/dL High 8-23 [facility] Comment on above: Performed By: #### C DP IPF, BMPX #### [facility] [address] [place] [address] Family Preservation Caseworker: Jabari Padgett MD CBC with Diffon 08-27-2022 Abs. Basophil 0.03 k/uL Normal 0.00-0.20 [facility] Comment on above: Performed By: #### C DP, IPF, BMPX #### [facility] [address] [place], [place] [phone] Family Preservation Caseworker: Jabari Padgett MD Abs.Imm.Granulocyte 0.04 k/uL Normal 0.00-0.30 [facility] Comment on above: Performed By: #### C DP, IPF, BMPX #### [address] [place] [id number] Family Preservation Caseworker: Jabari Padgett MD Abs.Neutrophil (Seg) 6.39 k/uL Normal 1.50-8.10 [facility] Comment on above: Performed By: #### C DP, IPF, BMPX #### [address] [place] [id number] Family Preservation Caseworker: Jabari Padgett MD Basophils/100 WBC (Bld) 0 % Normal 0-2 [facility] Comment on above: Performed By: #### C DP, IPF, BMPX #### [address] [place] [id number] Family Preservation Caseworker: Jabari Padgett MD Eosinophils (Bld) [#/Vol] 0.09 10*3/uL Normal 0.00-0.44 [facility] Comment on above: Performed By: #### C DP, IPF, BMPX #### [address] [place] [id number] Family Preservation Caseworker: Jabari Padgett MD Eosinophils/100 WBC (Bld) 1 % Normal 1-4 [facility] Comment on above: Performed By: #### C DP, IPF, BMPX #### [address] [place], [facility]83 Family Preservation Caseworker: Jabari Padgett MD Erythrocyte distribution width (RBC) [Ratio] 12.9 % Normal 11.8-14.4 [facility] Comment on above: Performed By: #### C DP, IPF, BMPX #### [address] [place] [address] Family Preservation Caseworker: Jabari Padgett MD Hematocrit (Bld) [Volume fraction] 38.4 % Low 40.7-50.3 [facility] Comment on above: Performed By: #### C DP, IPF, BMPX #### [address] [place] [address] Family Preservation Caseworker: Jabari Padgett MD Hemoglobin (Bld) [Mass/Vol] 13.6 g/dL Normal 13.0-17.0 [facility] Comment on above: Performed By: #### C DP, IPF, BMPX #### [address] [place] [address] Family Preservation Caseworker: Jabari Padgett MD Immature granulocytes/100 WBC (Bld) 0 % Normal 0 [facility] Comment on above: Performed By: #### C DP, IPF, BMPX #### [address] [place] [address] Family Preservation Caseworker: Jabari Padgett MD Lymphocytes (Bld) [#/Vol] 2.20 10*3/uL Normal 1.10-3.70 [facility] Comment on above: Performed By: #### C DP, IPF, BMPX #### [address] [place] [address] Family Preservation Caseworker: Jabari Padgett MD Lymphocytes/100 WBC (Bld) 23 % Low 24-43 [facility] Comment on above: Performed By: #### C DP, IPF, BMPX #### [address] [place], [facility]83 Family Preservation Caseworker: Jabari Padgett MD MCH (RBC) [Entitic mass] 31.9 pg Normal 25.2-33.5 [facility] Comment on above: Performed By: #### C DP, IPF, BMPX #### [address] [place] [id number] Family Preservation Caseworker: Jabari Padgett MD MCHC (RBC) [Mass/Vol] 35.4 g/dL High 28.4-34.8 [facility] Comment on above: Performed By: #### C DP, IPF, BMPX #### [facility] [address] [place], [facility]83 Family Preservation Caseworker: Jabari Padgett MD MCV (RBC) [Entitic vol] 90.1 fL Normal 82.6-102.9 [facility] Comment on above: Performed By: #### C DP, IPF, BMPX #### [address] [place], [facility]83 Family Preservation Caseworker: Jabari Padgett MD Monocytes (Bld) [#/Vol] 0.82 10*3/uL Normal 0.10-1.20 [facility] Comment on above: Performed By: #### C DP, IPF, BMPX #### [address] [place], [facility]83 Family Preservation Caseworker: Jabari Padgett MD Monocytes/100 WBC (Bld) 9 % Normal 3-12 [facility] Comment on above: Performed By: #### C DP, IPF, BMPX #### [address] [place], [facility]83 Family Preservation Caseworker: Jabari Padgett MD Neutrophil (Seg) 67 % High 36-65 [facility] Comment on above: Performed By: #### C DP, IPF, BMPX #### [address] [place], [facility]83 Family Preservation Caseworker: Jabari Padgett MD NRBC Automated 0.0 per 100 WBC Normal 0.0 [facility] Comment on above: Performed By: #### C DP, IPF, BMPX #### [address] [place] [address] Family Preservation Caseworker: Jabari Padgett MD Platelet mean volume (Bld) [Entitic vol] 10.1 fL Normal 8.1-13.5 [facility] Comment on above: Performed By: #### C DP, IPF, BMPX #### [facility] [address] [place], [place] [id number] Family Preservation Caseworker: Jabari Padgett MD Platelets (Bld) [#/Vol] 157 10*3/uL Normal 138-453 [facility] Comment on above: Performed By: #### C DP, IPF, BMPX #### [facility] [address] [place] [address] Family Preservation Caseworker: Jabari Padgett MD RBC (Bld) [#/Vol] 4.26 10*6/uL Normal 4.21-5.77 [facility] Comment on above: Performed By: #### C DP, IPF, BMPX #### [facility] [address] [place], [place] [id number] Family Preservation Caseworker: Jabari Padgett MD WBC (Bld) [#/Vol] 9.6 10*3/uL Normal 3.5-11.3 [facility] Comment on above: Performed By: #### C DP, IPF, BMPX #### [facility] [address] [place] [address] Family Preservation Caseworker: Jabari Padgett MD CT ABDOMEN PELVIS WO CONTRAS Ton 08-27-2022 CT ABDOMEN PELVIS WO CONTRAST EXAMINATION: CT OF THE ABDOMEN AND PELVIS WITHOUT CONTRAST 08/27/2022 1:41 pm TECHNIQUE: CT of the abdomen and pelvis was performed without the administration of intravenous contrast. Multiplanar reformatted images are provided for review. Automated exposure control, iterative reconstruction, and/or weight based adjustment of the mA/kV was utilized to reduce the radiation dose to as low as reasonably achievable. COMPARISON: None. HISTORY: ORDERING SYSTEM PROVIDED HISTORY: left lower abd pain, inguinal pain TECHNOLOGIST PROVIDED HISTORY: left lower abd pain, inguinal pain Decision Support Exception - unselect if not a suspected or confirmed emergency medical condition->Emergency Medical Condition (MA) FINDINGS: Lower Chest: Unremarkable Organs: There is a 2.9 cm cyst of the left lobe of the liver. The patient is status post cholecystectomy. The pancreas and spleen appear normal. The adrenal glands and kidneys appear normal. There are no renal calculi there is no evidence of hydronephrosis. GI/Bowel: The the stomach, duodenum and small bowel loops appear normal. The the colon appears normal. Pelvis: There are diverticuli or cellules of the bladder, in keeping with chronic bladder outlet obstruction. There is moderate enlargement of the prostate. The rectum appears normal. Peritoneum/Retroperit oneum: Unremarkable Bones/Soft Tissues: Osteophytes are noted in the lower thoracic and in the lumbar spine. IMPRESSION: No significant abnormality demonstrated. No abnormalities along the left side of the abdomen. There are no renal calculi and there is no hydronephrosis. There are no inguinal hernias. 2.9 cm cyst of left lobe of the liver. Status post cholecystectomy. Evidence of chronic bladder outlet obstruction with moderate enlargement of the prostate. Interpreted by: Michael Williamson MD Signed by: Michael iWlliamson MD 08/27/22 Final result Normal [facility] UA w/Reflex Cultureon 2022 Bilirubin, SemiQt,Ur Negative Normal NEG [facility] Comment on above: Performed By: #### C DP, CP #### [facility] [address] [place] [address] [place] [address] Family Preservation Caseworker: Jabari Padgett MD Blood, Urine Negative Normal NEG [facility] Comment on above: Performed By: #### C DP, CP #### [address] [place] [address] Family Preservation Caseworker: Jabari Padgett MD Clarity (U) Clear Normal CLEAR [facility] Comment on above: Performed By: #### C DP, CP #### [facility] [address] [place] [address] [place] [address] Family Preservation Caseworker: Jabari Padgett MD Color (U) Yellow Normal YEL [facility] Comment on above: Performed By: #### C DP, CP #### [facility] [address] [place] [address] [place] [address] Family Preservation Caseworker: Jabari Padgett MD Glucose Ql (U) 2+ Abnormal NEG [facility] Comment on above: Performed By: #### C DP, CP #### [facility] [address] [place] [address] Dr[place], [facility]83 Family Preservation Caseworker: Jabari Padgett MD Ketones Ql (U) Negative Normal NEG [facility] Comment on above: Performed By: #### C DP, CP #### [facility] [address] [place] [address] Dr[place], [facility]83 Family Preservation Caseworker: Jabari Padgett MD Leukocyte esterase Test strip Ql (U) Negative Normal NEG [facility] Comment on above: Performed By: #### C DP, CP #### [address] [place] [address] Family Preservation Caseworker: Jabari Padgett MD Nitrite,Ur Negative Normal NEG [facility] Comment on above: Performed By: #### C DP, CP #### [facility] [address] [place] [address] [place] [address] Family Preservation Caseworker: Jabari Padgett MD PH,Ur 7.0 Normal 5.0-9.0 [facility] Comment on above: Performed By: #### C DP, CP #### [address] [place] [address] Family Preservation Caseworker: Jabari Padgett MD Protein Ql (U) 2+ Abnormal NEG [facility] Comment on above: Performed By: #### C DP, CP #### [facility] [address] [place] [address] Dr[place], [place] [address] Family Preservation Caseworker: Jabari Padgett MD Spec. [place],Ur 1.015 Normal 1.010-1.020 [facility] Comment on above: Performed By: #### C DP, CP #### [address] [place] [id number] Family Preservation Caseworker: Jabari Padgett MD Urobilinogen,Ur Normal Normal NORM [facility] Comment on above: Performed By: #### C DP, CP #### [facility] [address] [place], [place] [id number] Family Preservation Caseworker: Jabari Padgett MD Urinalysis,Microon 3 Bacteria TRACE Abnormal NONE [facility] Comment on above: Performed By: #### C DP, IPF, BMPX #### [facility] [address] [place], [place] [phone] Family Preservation Caseworker: Jabari Padgett MD Epithelial cells LM Ql (Urine sed) 2 TO 5 Normal 0-5 [facility] Comment on above: Performed By: #### C DP, IPF, BMPX #### [facility] [address] [place], [place] [id number] Family Preservation Caseworker: Jabari Padgett MD Mucus Strands TRACE Abnormal NONE [facility] Comment on above: Performed By: #### C DP, IPF, BMPX #### [address] [place], [place] 1765083 Family Preservation Caseworker: Jabari Padgett MD Urine RBC's None Normal 0-2 [facility] Comment on above: Performed By: #### C DP, IPF, BMPX #### [facility] [address] [place], [place] 0340683 Family Preservation Caseworker: Jabari Padgett MD Urine WBC's None Normal 0-5 [facility] Comment on above: Performed By: #### C DP, IPF, BMPX #### [address] [place], [place] [id number] Family Preservation Caseworker: Jabari Padgett MD XR HIP 2-3 VW W PELVIS LEFTo n 08-27-2022 XR HIP 2-3 VW W PELVIS LEFT EXAMINATION: ONE XRAY VIEW OF THE PELVIS AND TWO XRAY VIEWS LEFT HIP 08/27/2022 2:44 pm COMPARISON: CT abdomen pelvis from 08/27/2022 HISTORY: ORDERING SYSTEM PROVIDED HISTORY: pain TECHNOLOGIST PROVIDED HISTORY: pain 76-year-old male with left hip pain FINDINGS: Mild osteophyte spurring of the bilateral hip joint spaces. Both femoral heads project over the bilateral acetabula without clear evidence for acute fracture, dislocation or femoral head flattening. Atherosclerotic calcification of the vasculature. Moderate stool burden. Iliac wings and pubic rami symmetric in appearance. Surgical clips along the medial left thigh. IMPRESSION: 1. Mild bilateral hip osteoarthrosis. 2. No acute fracture or dislocation. Interpreted by: Elton Walters MD Signed by: Elton Walters MD 08/27/22 Final result Normal [facility] Office Visiton 07-31-2022 Follow-up visit [id number] Anne-MarieBertha Vipul 1945 M Date Provider Department Center 07/31/2022 [id number] [facility] NEPHRO Comprehensiv Family History Family history unknown: Yes Level of Service:71894 [place] OFFICE/OUTPATIENT ESTABLISHED LOW MDM 20-29 MIN (GC) Reason for Visit and Comments: Follow-up [511462] - CKD 3 Normal [facility] BILIRUBIN CONJUGATED (DIRECT )on 07-27-2022 BILI, CONJUGATED 0.2 mg/dL Normal 0.0-0.2 [facility] Comment on above: Performed By: #### D SHARIFA, TSH #### [facility] [address] [place] [address] [address] Gallo Infante FREE T4on 07-27-2022 Free T4 [Mass/Vol] 1.11 ng/dL Normal 0.76-1.[address] [facility] Comment on above: Performed By: #### F T4 #### [facility] [address] [place] [address] [address] Gallo Infante LIPID PROFILEon 07-27-2022 CHOL-HDL RATIO NORM SEE BELOW Normal [facility] Comment on above: Result Comment: 3.3 - 4.4 LOW RISK 4.4 - 7.1 AVERAGE RISK 7.1 - 11.0 MODERATE RISK >11.0 HIGH RISK Performed By: #### D SHARIFA, TSH #### [facility] [address] [place] [address] [address] Gallo Infante Cholesterol [Mass/Vol] 102 mg/dL Normal <=200 [facility] Comment on above: Performed By: #### D SHARIFA, TSH #### [facility] [address] [place] [address] [address] Gallo Infante Cholesterol in HDL [Mass/Vol] 45 mg/dL Normal 40-60 [facility] Comment on above: Performed By: #### D SHARIFA, TSH #### [facility] [address] [place] [address] [address] Gallo Infante Cholesterol in LDL [Mass/Vol] 40.2 mg/dL Normal [facility] Comment on above: Performed By: #### D SHARIFA, TSH #### [facility] [address] [place] [address] [address] Gallo Infante Cholesterol.total/Blanche sterol in HDL [Mass ratio] 2.3 {ratio} Normal [facility] Comment on above: Performed By: #### D SHARIFA, TSH #### [facility] [address] [place] [address] [address] Gallo Infante HDL NORMAL > or = 60 mg/dl - LO W CARDIOVASCULAR RISK <40 mg/dl - HIGH CARDIOVASCULAR RISK Normal [facility] Comment on above: Performed By: #### D SHARIFA, TSH #### [facility] [address] [place] [address] [address] Gallo Infante LDL CALC NORMAL SEE BELOW Normal [facility] Comment on above: Result Comment: <100 mg/dl OPTIMAL 100 - 129 mg/dl NEAR OR ABOVE OPTIMAL 130 - 159 mg/dl BORDERLINE HIGH 160 - 189 mg/dl HIGH >190 mg/dl VERY HIGH Performed By: #### D SHARIFA, TSH #### [facility] [address] [address] [address] Gallo Infante Triglyceride [Mass/Vol] 84 mg/dL Normal <=150 T [facility] Comment on above: Performed By: #### D SHARIFA, TSH #### [facility] [address] [address] [address] Gallo Infante VLDL CALC 16.8 mg/dL Normal [facility] Comment on above: Performed By: #### D SHARIFA, TSH #### [facility] [address] [address] [address] Gallo Infante PROF 14(COMP METB)on 023 Albumin [Mass/Vol] 2.9 g/dL Critically low 3.4-5.0 [facility] Comment on above: Performed By: #### D SHARIFA, TSH #### [facility] [address] [address] [address] Gallo Infante Albumin/Globulin [Mass ratio] 0.6 {ratio} Normal [facility] Comment on above: Performed By: #### D SHARIFA, TSH #### [facility] [address] [address] [address] Gallo Infante ALP [Catalytic activity/Vol] 119 U/L Critically high 46-116 [facility] Comment on above: Performed By: #### D SHARIFA, TSH #### [facility] [address] [address] [address] Gallo Infante ALT [Catalytic activity/Vol] 29 U/L Normal 16-63 [facility] Comment on above: Performed By: #### D SHARIFA, TSH #### [facility] [address] [address] [address] Gallo Infante Anion gap [Moles/Vol] 10.1 mmol/L Normal [facility] Comment on above: Performed By: #### D SHARIFA, TSH #### [facility] [address] [address] [address] Gallo Infante AST [Catalytic activity/Vol] 21 U/L Normal 15-37 [facility] Comment on above: Performed By: #### D SHARIFA, TSH #### [facility] [address] [address] [address] Gallo Infante Bilirubin [Mass/Vol] 0.4 mg/dL Normal 0.2-1.0 [facility] Comment on above: Performed By: #### D SHARIFA, TSH #### [facility] [address] [address] [address] Gallo Infante Calcium [Mass/Vol] 8.8 mg/dL Normal 8.5-10.[address] [facility] Comment on above: Performed By: #### D SHARIFA, TSH #### [facility] [address] [address] [address] Gallo Infante Chloride [Moles/Vol] 102 mmol/L Normal 98-107 [facility] Comment on above: Performed By: #### D SHARIFA, TSH #### [facility] [address] [place] [address] Dr. Gallo Infante CO2 [Moles/Vol] 31.3 mmol/L Normal 21.0-32.0 [facility] Comment on above: Performed By: #### D SHARIFA, TSH #### [facility] [address] [place] [address] Dr. Gallo Infante Creatinine [Mass/Vol] 2.37 mg/dL Critically high 0.70-1.30 [facility] Comment on above: Performed By: #### D SHARIFA, TSH #### [facility] [address] [place] [address] Dr. Gallo Infante EGFR-AF BURMESE 32 mL/min/1.73m2 Critically low >=60 [facility] Comment on above: Performed By: #### D SHARIFA, TSH #### [facility] [address] [place] [address] Dr. Gallo Infante EGFR-NON AF BURMESE 27 mL/min/1.73m2 Critically low >=60 [facility] Comment on above: Performed By: #### D SHARIFA, TSH #### [facility] [address] [place] [address] Dr. Gallo Infante Globulin (S) [Mass/Vol] 4.5 g/dL Normal [facility] Comment on above: Performed By: #### D SHARIFA, TSH #### [facility] [address] [place] [address] Dr. Gallo Infante Glucose [Mass/Vol] 156 mg/dL Critically high 74-[address] [facility] Comment on above: Performed By: #### D SHARIFA, TSH #### [facility] [address] [place] [address] Dr. Gallo Infante Potassium [Moles/Vol] 4.4 mmol/L Normal 3.5-5.1 [facility] Comment on above: Performed By: #### D SHARIFA, TSH #### [facility] [address] [place] [address] Dr. Gallo Infante Protein [Mass/Vol] 7.4 g/dL Normal 6.4-8.[address] [facility] Comment on above: Performed By: #### D SHARIFA, TSH #### [facility] [address] [address] [address] Gallo Infante Sodium [Moles/Vol] 139 mmol/L Normal 136-[address] [facility] Comment on above: Performed By: #### D SHARIFA, TSH #### [facility] [address] [address] [address] Gallo Infante Urea nitrogen [Mass/Vol] 46.0 mg/dL Critically high 7.0-18.0 [facility] Comment on above: Performed By: #### D SHARIFA, TSH #### [facility] [address] [place] [address] Dr. Gallo Infante Urea nitrogen/Creatinine [Mass ratio] 19.4 mg/mg Normal [facility] Comment on above: Performed By: #### D SHARIFA, TSH #### [facility] [address] [place] [address] Dr. Gallo Infante TSHon 07-27-2022 TSH 0.887 uIU/mL Normal 0.358-3.740 [facility] Comment on above: Performed By: #### D SHARIFA, TSH #### [facility] [address] [place] [address] Dr. Gallo Infante VITAMIN B12on 07-27-2022 Cobalamin (Vitamin B12) [Mass/Vol] 1205.0 pg/mL Critically high 193.0-986.0 [facility] Comment on above: Performed By: #### D SHARIFA, TSH #### [facility] [address] [place] [address] Dr. Gallo Infante 36on 07-24-2022 36 Approving, but needs appt for additional refills. Normal [facility] Orders Onlyon 07-18-2022 Orders Only [id number] Bertha Pulido 1945 M Date Provider Department Center 07/18/2022 REGAN EDWARD [facility] Family History Family history unknown: Yes Normal [facility] PROTEIN AND CREA RANDOM UR R ATIOon 04-17-2022 Creatinine, Urine 50.8 mg/dL Normal Not Estab. [facility] Comment on above: Performed By: #### D SHARIFA, TSH #### [facility] [address] [place] [address] Dr. Gallo Infante Protein (U) [Mass/Vol] 51.0 mg/dL Normal Not Estab. [facility] Comment on above: Performed By: #### D SHARIFA, TSH #### [facility] [address] [address] [address] Gallo Infante Protein/Creat Ratio 1004 mg/g creat Critically high 0-200 [facility] Comment on above: Performed By: #### Shira SHARIFA, TSH #### [facility] [address] [place] [address] Dr. Gallo Infante PTH INTACTon 04-17-2022 PTH, Intact 42 pg/mL Normal 15-65 [facility] Comment on above: Performed By: #### Shira SHARIFA, TSH #### [facility] [address] [address] [address] Gallo Infante ALBUMINon 04-16-2022 Albumin [Mass/Vol] 3.3 g/dL Critically low 3.4-5.0 [facility] Comment on above: Performed By: #### Shira SHARIFA, TSH #### [facility] [address] [place] [address] Dr. Gallo Infante HEMOGLOBINon 04-16-2022 Hemoglobin (Bld) [Mass/Vol] 13.3 g/dL Critically low 14.0-18.0 [facility] Comment on above: Performed By: #### Shira SHARIFA, TSH #### [facility] [address] [address] [address] Gallo Infante MAGNESIUMon 04-16-2022 Magnesium [Mass/Vol] 2.0 mg/dL Normal 1.8-2.4 [facility] Comment on above: Performed By: #### Shira SHARIFA, TSH #### [facility] [address] [place] [address] Dr. Gallo Infante PHOSPHORUSon 04-16-2022 Phosphate [Mass/Vol] 4.0 mg/dL Normal 2.6-4.7 [facility] Comment on above: Performed By: #### D SHARIFA, TSH #### [facility] [address] [address] [address] Gallo Infante PROF CHEM 8 (BAS METB)on Anion gap [Moles/Vol] 7.9 mmol/L Normal [facility] Comment on above: Performed By: #### D SHARIFA, TSH #### [facility] [address] [address] [address] Gallo Infante Calcium [Mass/Vol] 8.9 mg/dL Normal 8.5-10.[address] [facility] Comment on above: Performed By: #### D SHARIFA, TSH #### [facility] [address] [address] [address] Gallo Infante Chloride [Moles/Vol] 102 mmol/L Normal 98-107 [facility] Comment on above: Performed By: #### D SHARIFA, TSH #### [facility] [address] [address] [address] Gallo Infante CO2 [Moles/Vol] 30.0 mmol/L Normal 21.0-32.0 [facility] Comment on above: Performed By: #### D SHARIFA, TSH #### [facility] [address] [address] [address] Gallo Infante Creatinine [Mass/Vol] 2.47 mg/dL Critically high 0.70-1.30 [facility] Comment on above: Performed By: #### D SHARIFA, TSH #### [facility] [address] [address] [address] Gallo Infante EGFR-AF BURMESE 31 mL/min/1.73m2 Critically low >=[address] [facility] Comment on above: Performed By: #### D SHARIFA, TSH #### [facility] [address] [address] [address] Gallo Infante EGFR-NON AF BURMESE 26 mL/min/1.73m2 Critically low >=[address] [facility] Comment on above: Performed By: #### D SHARIFA, TSH #### [facility] [address] [address] [address] Gallo Infante Glucose [Mass/Vol] 247 mg/dL Critically high 74-106 T [facility] Comment on above: Performed By: #### D SHARIFA, TSH #### [facility] [address] [address] [address] Gallo Infante Potassium [Moles/Vol] 3.9 mmol/L Normal 3.5-5.1 [facility] Comment on above: Performed By: #### D SHARIFA, TSH #### [facility] [address] [place] [address] Dr. Gallo Infante Sodium [Moles/Vol] 136 mmol/L Normal 136-[address] [facility] Comment on above: Performed By: #### D SHARIFA, TSH #### [facility] [address] [place] [address] Dr. Gallo Infante Urea nitrogen [Mass/Vol] 45.0 mg/dL Critically high 7.0-18.0 [facility] Comment on above: Performed By: #### D SHARIFA, TSH #### [facility] [address] [place] [address] Dr. Gallo Infante Urea nitrogen/Creatinine [Mass ratio] 18.2 mg/mg Normal [facility] Comment on above: Performed By: #### D SHARIFA, TSH #### [facility] [address] [place] [address] Dr. Gallo Infante VITAMIN D 25 OHon 04-16-2022 VIT D 25-OH 39.4 ng/mL [facility] Comment on above: Performed By: #### D SHARIFA, TSH #### [facility] [address] [place] [address] Dr. Gallo Infante VIT D RANGES SEE BELOW Normal [facility] Comment on above: Result Comment: <20 ng/mL Vit D deficient 20 - <30 ng/mL Vit D insufficient 30 - 100 ng/mL Vit D sufficient >100 ng/mL Potential Toxicity Performed By: #### D SHARIFA, TSH #### [facility] [address] [place] [address] Dr. Gallo Infante CBC W/DIFFon 02-20-2022 ABS IMM GRANS 0.0 10*3/uL Normal 0.0-0.2 [facility] Comment on above: Performed By: #### 3 1569, , [id number] #### [facility] [address] [place] [address], [facility] ABS NEUTROPHILS 4.6 10*3/uL Normal 1.6-7.6 [facility] Comment on above: Performed By: #### 3 156, , [id number] #### [facility] [address] [place] [address], [facility] Basophils (Bld) [#/Vol] 0.0 10*3/uL Normal 0.0-0.2 [facility] Comment on above: Performed By: #### 3 156, , 79896 #### [facility] [address] [place] [address], [facility] Basophils/100 WBC (Bld) 0.5 % Normal 0.0-1.0 T kelechi [facility] Comment on above: Performed By: #### 3 1568, , 91064 #### [facility] [address] [facility] [place] [address], [facility] Eosinophils (Bld) [#/Vol] 0.2 10*3/uL Normal 0.0-0.5 [facility] Comment on above: Performed By: #### 3 156, , 43056 #### [facility] [address] [place] [id number], [place] Eosinophils/100 WBC (Bld) 2.6 % Normal 0.0-6.0 [facility] Comment on above: Performed By: #### 3 156, , 05957 #### [facility] [address] [place] [id number], [facility] Erythrocyte distribution width (RBC) [Ratio] 13.1 % Normal 11.5-15.0 [facility] Comment on above: Performed By: #### 3 1569, , 81481 #### [facility] [address] [place] [address], [facility] Hematocrit (Bld) [Volume fraction] 41.2 % Normal 39.0-50.0 [facility] Comment on above: Performed By: #### 3 156, , 08568 #### [facility] [address] [place] [address], [facility] Hemoglobin (Bld) [Mass/Vol] 14.2 g/dL Normal 13.0-17.0 [facility] Comment on above: Performed By: #### 3 156, , 93802 #### [facility] [address] [place] [address], [facility] IMMATURE GRANS 0.3 % Normal 0.0-1.0 [facility] Comment on above: Performed By: #### 3 156, , 74403 #### [facility] [address] [place] [address], [facility] Lymphocytes (Bld) [#/Vol] 2.1 10*3/uL Normal 1.2-4.0 [facility] Comment on above: Performed By: #### 3 156, , 39709 #### [facility] [address] [place] [address], [facility] Lymphocytes/100 WBC (Bld) 27.6 % Normal 20.0-45.0 [facility] Comment on above: Performed By: #### 3 156, , 51811 #### [facility] [address] [place] [address], [facility] MCH (RBC) [Entitic mass] 30.5 pg Normal 27.0-33.0 [facility] Comment on above: Performed By: #### 3 156, , 93065 #### [facility] [address] MCHC (RBC) [Mass/Vol] 34.5 g/dL Normal 32.0-35.0 [facility] Comment on above: Performed By: #### 3 156, , 13936 #### [facility] [address] [place] [address], [facility] MCV (RBC) [Entitic vol] 88.4 fL Normal 82.0-98.0 [facility] Comment on above: Performed By: #### 3 156, , 03842 #### [facility] [address] [place] [address], [facility] Monocytes (Bld) [#/Vol] 0.7 10*3/uL Normal 0.1-1.0 [facility] Comment on above: Performed By: #### 3 1568, , 59459 #### [facility] [address] [facility]. [address] MONOS 9.5 % Normal 5.0-12.0 [facility] Comment on above: Performed By: #### 3 1568, , 97242 #### [facility] [address] [facility]. [address] Neutrophils/100 WBC (Bld) 59.5 % Normal 40.0-72.0 [facility] Comment on above: Performed By: #### 3 1568, , 46308 #### [facility] [address] [facility]. [address] Nucleated RBC/100 WBC (Bld) [Ratio] 0 % Normal 0-0 [facility] Comment on above: Performed By: #### 3 1568, , 76447 #### [facility] [address] [facility] [place] [address], [facility] PLAT CNT 149 10*3/uL Low 150-400 [facility] Comment on above: Performed By: #### 3 156, , 09850 #### [facility] [address] [place] [address], [facility] RBC (Bld) [#/Vol] 4.66 10*6/uL Normal 4.20-5.70 [facility] Comment on above: Performed By: #### 3 1569, 29735, 73384 #### [facility] [address] [place] [address], [facility] WBC (Bld) [#/Vol] 7.68 10*3/uL Normal 4.00-10.60 [facility] Comment on above: Performed By: #### 3 1569, 78014, 23745 #### [facility] [address] [place] [address], [facility] COMP METABOLIC PANELon 02-20 Albumin [Mass/Vol] 3.6 g/dL Normal 3.5-5.7 [facility] Comment on above: Performed By: #### 0 0121 #### [facility] [address] [place] [address], [facility] ALKALINE PHOSPH 122 IU/L High 34-104 [facility] Comment on above: Performed By: #### 0 0121 #### [facility] [address] [place] [address], [facility] ALT [Catalytic activity/Vol] 70 U/L High 7-52 [facility] Comment on above: Performed By: #### 0 0121 #### [facility] [address] [place] [address], [facility] AST [Catalytic activity/Vol] 44 U/L High 13-39 [facility] Comment on above: Performed By: #### 0 0121 #### [facility] [address] [place] [id number], [facility] Bilirubin [Mass/Vol] 0.5 mg/dL Normal 0.3-1.0 [facility] Comment on above: Performed By: #### 0 0121 #### [facility] [address] [place] [address], [facility] Calcium [Mass/Vol] 9.0 mg/dL Normal 8.6-10.3 [facility] Comment on above: Performed By: #### 0 0121 #### [facility] [address] [place] [address], [place] Chloride [Moles/Vol] 99 mmol/L Normal 98-107 [facility] Comment on above: Performed By: #### 0 0121 #### [facility] [address] [place] [address], [place] CO2 [Moles/Vol] 30 mmol/L Normal 21-31 [facility] Comment on above: Performed By: #### 0 0121 #### [facility] [address] [place] [address], [facility] Creatinine [Mass/Vol] 2.80 mg/dL High 0.70-1.30 [facility] Comment on above: Performed By: #### 0 0121 #### [facility] [address] [place] [address], [facility] EGFR 23 ml/min/1.73sq m Abnormal >60 [facility] Comment on above: Result Comment: [facility]'s estimated glomerular filtration rate (eGFR) will no longer include consideration of race in its calculation. The [employer]'s eGFR Task Force developed new recommendations for the estimation of the glomerular filtration rate in the [place] They recommend immediate implementation of the new equation refit without the race variable in all laboratories because the calculation does not include race. In addition to not including race in the calculation and reporting, it included diversity in its development, and has acceptable performance characteristics and potential consequences that do not disproportionately affect any one group of individuals. Performed By: #### 0 0121 #### [facility] [address] [place] [address], [place] Glucose [Mass/Vol] 165 mg/dL High 70-100 [facility] Comment on above: Performed By: #### 0 0121 #### [facility] [address] [place] [address], [place] Potassium [Moles/Vol] 4.2 mmol/L Normal 3.5-5.1 [facility] Comment on above: Performed By: #### 0 0121 #### [facility] [address] [place] [address], [place] Protein [Mass/Vol] 7.2 g/dL Normal 6.0-8.3 [facility] Comment on above: Performed By: #### 0 0121 #### [facility] [address] [place] [address], [place] Sodium [Moles/Vol] 137 mmol/L Normal 136-145 [facility] Comment on above: Performed By: #### 0 0121 #### [facility] [address] [place] [address], [place] Urea nitrogen [Mass/Vol] 44 mg/dL High 7-25 [facility] Comment on above: Performed By: #### 0 0121 #### [facility] [address] [place] [address], [place] ALBUMIN BLOODon 11-21-2021 Albumin [Mass/Vol] 3.3 g/dL Low 3.5-5.7 [facility] Comment on above: Performed By: #### 1 0070, 00169, 18712, 06071, 71884, 06847 #### [facility] [address] [place] [address], [place] BASIC METABOLIC PANELon 11-11 Calcium [Mass/Vol] 8.5 mg/dL Low 8.6-10.3 [facility] Comment on above: Performed By: #### 1 0070, 06055, 86116, 63930, 62689, 28919 #### [facility] [address] [place] [address], [place] Chloride [Moles/Vol] 104 mmol/L Normal 98-107 [facility] Comment on above: Performed By: #### 1 0070, 21495, 28616, 92870, 71056, 32279 #### [facility] [address] [place] [address], [facility] CO2 [Moles/Vol] 27 mmol/L Normal 21-31 [facility] Comment on above: Performed By: #### 1 0070, 44078, 47702, 20439, 81652, 48524 #### [facility] [address] [place] [address], [facility] Creatinine [Mass/Vol] 2.70 mg/dL High 0.70-1.30 [facility] Comment on above: Performed By: #### 1 0070, 91905, 83494, 54328, 46975, 93064 #### [facility] [address] [place] [address], [facility] eGFR- 28 ml/min/1.73sq m Abnormal >60 [facility] Comment on above: Result Comment: Calc ulation may not be valid for patients over 70 years Performed By: #### 1 0070, 01368, 10286, 12923, 44457, 11618 #### [facility] [address] [place] [address], [facility] eGFR- non- 23 ml/min/1.73sq m Abnormal >60 [facility] Comment on above: Result Comment: Calc ulation may not be valid for patients over 70 years Performed By: #### 1 0070, 19434, 16483, 11886, 36316, 68622 #### [facility] [address] [place] [address], [place] Glucose [Mass/Vol] 321 mg/dL High 70-100 [facility] Comment on above: Performed By: #### 1 0070, 23254, 35952, 88160, 36320, 56641 #### [facility] [address] [place] [address], [facility] Potassium [Moles/Vol] 4.3 mmol/L Normal 3.5-5.1 [facility] Comment on above: Performed By: #### 1 0070, 52538, 92079, 86451, 76878, 35510 #### [facility] [address] [place] [address], [facility] Sodium [Moles/Vol] 136 mmol/L Normal 136-145 [facility] Comment on above: Performed By: #### 1 0070, 06535, 89800, 16966, 52154, 03936 #### [facility] [address] [place] [address], [facility] Urea nitrogen [Mass/Vol] 44 mg/dL High 7-25 [facility] Comment on above: Performed By: #### 1 0070, 74278, 16585, 29446, 87580, 69478 #### [facility] [address] [place] [address], [facility] CREATININE URINE RANDOMon Creatinine (U) [Mass/Vol] 67.0 mg/dL Normal [facility] Comment on above: Result Comment: Ther e are no established reference values for random urine specimens Performed By: #### 3 1569, 37018, 05193 #### [facility] [address] [place] [address], [facility] FERRITINon 11-21-2021 Ferritin [Mass/Vol] 157 ng/mL Normal 24-336 [facility] Comment on above: Performed By: #### 1 0070, 68530, 50579, 31047, 80546, 06105 #### [facility] [address] [place] [address], [facility] HEMOGLOBINon 11-21-2021 Hemoglobin (Bld) [Mass/Vol] 12.1 g/dL Low 13.0-17.0 [facility] Comment on above: Performed By: #### 3 1569, 14576, 65940 #### [facility] [address] [place] [address], [facility] MAGNESIUM BLOODon 11-21-2021 Magnesium [Mass/Vol] 1.8 mg/dL Low 1.9-2.7 [facility] Comment on above: Performed By: #### 1 0070, 54220, 01536, 02859, 09147, 50532 #### [facility] [address] [place] [address], [facility] PHOSPHORUS BLOODon 2 Phosphate [Mass/Vol] 2.8 mg/dL Normal 2.5-5.0 [facility] Comment on above: Performed By: #### 1 0070, 31205, 30262, 77061, 98967, 40915 #### [facility] [address] [place] [address], [facility] T PROT UR Celia 11-21-2021 U TOTAL PROTEIN 107.2 mg/dL Normal [facility] Comment on above: Result Comment: Ther e are no established reference values for random urine specimens Performed By: #### 3 1569, 97784, 94103 #### [facility] [address] [facility] [place] [address], [facility] TIBC- INCLUDES IRONon 2021 FE SATURATION 15 % Low 20-50 [facility] Comment on above: Performed By: #### 1 0070, 13557, 91525, 89423, , 83832 #### [facility] [address] [place] [address], [facility] Iron [Mass/Vol] 41 ug/dL Low 50-212 [facility] Comment on above: Performed By: #### 1 0070, 40969, 95112, 97493, 12931, 37413 #### [facility] [address] [place] [address], [facility] TIBC 271 mcg/dL Normal 250-450 [facility] Comment on above: Performed By: #### 1 0070, 61223, 86176, 34922, 58438, 77656 #### [facility] [address] [place] [address], [facility] UIBC 230 mcg/dL Normal 155-355 [facility] Comment on above: Performed By: #### 1 0070, 74628, 77396, 64732, 95349, 01994 #### [facility] [address] [place] [address], [facility] ALBUMINon 09-28-2021 Albumin [Mass/Vol] 2.8 g/dL Critically low 3.4-5.[address] [facility] Comment on above: Performed By: #### P HOS, MG, ALB, BMP #### [facility] [address] [place] [address] Dr. Gallo Infante CREATININE URINEon URINE CREAT 79.37 mg/dL Normal 20.00-300.00 [facility] Comment on above: Performed By: #### C REAU, PROTU #### [facility] [address] [place] [address] Dr. Gallo Infante HEMOGLOBINon 09-28-2021 Hemoglobin (Bld) [Mass/Vol] 12.8 g/dL Critically low 14.0-18.0 [facility] Comment on above: Performed By: #### H GB #### [facility] [address] [place] [address] Dr. Gallo Infante MAGNESIUMon 09-28-2021 Magnesium [Mass/Vol] 2.0 mg/dL Normal 1.6-2.3 [facility] Comment on above: Performed By: #### P HOS, MG, ALB, BMP #### [facility] [address] [place] [address] Dr. Gallo Infante PHOSPHORUSon 09-28-2021 Phosphate [Mass/Vol] 3.9 mg/dL Normal 2.5-4.5 [facility] Comment on above: Performed By: #### P HOS, MG, ALB, BMP #### [facility] [address] [place] [address] Dr. Gallo Infante PROF CHEM 8 (BAS METB)on Anion gap [Moles/Vol] 8.6 mmol/L Normal [facility] Comment on above: Performed By: #### P HOS, MG, ALB, BMP #### [facility] [address] [address] [address] Gallo Infante Calcium [Mass/Vol] 8.3 mg/dL Critically low 8.5-10.1 [facility] Comment on above: Performed By: #### P HOS, MG, ALB, BMP #### [facility] [address] [address] [address] Gallo Infante Chloride [Moles/Vol] 103 mmol/L Normal 98-107 [facility] Comment on above: Performed By: #### P HOS, MG, ALB, BMP #### [facility] [address] [place] [address] Dr. Gallo Infante CO2 [Moles/Vol] 28.9 mmol/L Normal 22.0-30.0 [facility] Comment on above: Performed By: #### P HOS, MG, ALB, BMP #### [facility] [address] [address] [address] Gallo Infante Creatinine [Mass/Vol] 2.49 mg/dL Critically high 0.66-1.25 [facility] Comment on above: Performed By: #### P HOS, MG, ALB, BMP #### [facility] [address] [address] [address] Gallo Infante EGFR-AF BURMESE 31 mL/min/1.73m2 Critically low >=60 [facility] Comment on above: Performed By: #### P HOS, MG, ALB, BMP #### [facility] [address] [place] [address] Dr. Gallo Infante EGFR-NON AF BURMESE 25 mL/min/1.73m2 Critically low >=60 [facility] Comment on above: Performed By: #### P HOS, MG, ALB, BMP #### [facility] [address] [address] [address] Gallo Infante Glucose [Mass/Vol] 197 mg/dL Critically high 74-106 T [facility] Comment on above: Performed By: #### P HOS, MG, ALB, BMP #### [facility] [address] [place] [address] Dr. Gallo Infante Potassium [Moles/Vol] 4.5 mmol/L Normal 3.4-5.0 [facility] Comment on above: Performed By: #### P HOS, MG, ALB, BMP #### [facility] [address] [place] [address] Dr. Gallo Infante Sodium [Moles/Vol] 136 mmol/L Critically low 137-145 [facility] Comment on above: Performed By: #### P HOS, MG, ALB, BMP #### [facility] [address] [place] [address] Dr. Gallo Infante Urea nitrogen [Mass/Vol] 42.0 mg/dL Critically high 7.0-18.0 [facility] Comment on above: Performed By: #### P HOS, MG, ALB, BMP #### [facility] [address] [place] [address] Dr. Gallo Infante Urea nitrogen/Creatinine [Mass ratio] 16.9 mg/mg Normal [facility] Comment on above: Performed By: #### P HOS, MG, ALB, BMP #### [facility] [address] [place] [address] Dr. Gallo Infante PROTEIN RAND URINEon 022 UR PROT 166.1 mg/dL Critically high <=12.0 [facility] Comment on above: Performed By: #### C REAU, PROTU #### [facility] [address] [place] [address] Dr. Gallo Infante *URINE CULTUREon 08-22-2021 *URINE CULTURE Clinical Report: (D) Specimen: URINE Collected: 08/22/2021 15:12 Status: Final Last Updated: 08/24/2021 07:56 ISO (Final) >100,000 Cfu/Ml Mixed Gram Positive Yumiko Normal [facility] Comment on above: Performed By: #### 3 1569, 80265, 63757 #### [facility] [address] [place] [address], [facility] HEMOGLOBIN A1Con 08-22-2021 Glucose [Moles/Vol] 203 mmol/L Normal [facility] Comment on above: Performed By: #### 3 1569, 21324, 10024 #### [facility] [address] [place] [address], [facility] HbA1c (Bld) [Mass fraction] 8.7 % High 4.0-6.0 [facility] Comment on above: Performed By: #### 3 1569, 93025, 23956 #### [facility] [address] [facility] [place] [address], [facility] UA,MICROSCOPIC REQUIREDon Appearance (U) CLEAR Normal CLEAR [facility] Comment on above: Performed By: #### 3 1569, 82775, 81712 #### [facility] [address] [place] [address], [facility] Bilirubin Ql (U) Negative Normal NEGATIVE [facility] Comment on above: Performed By: #### 3 1569, 82309, 63844 #### [facility] [address] [place] [address], [facility] Color (U) YELLOW Normal YELLOW [facility] Comment on above: Performed By: #### 3 1569, 21278, 64168 #### [facility] [address] [place] [place] [address], [facility] EPIS OCC Normal FEW,OCC,NONE SEEN [facility] Comment on above: Performed By: #### 3 1569, 31533, 79405 #### [facility] [address] [place] [address], [facility] Glucose Ql (U) 50 mg/dL Abnormal NEGATIVE [facility] Comment on above: Performed By: #### 3 1569, 19990, 91647 #### [facility] [address] [place] [address], [place] Hemoglobin Ql (U) Negative Normal NEGATIVE [facility] Comment on above: Performed By: #### 3 1569, 97381, 58670 #### [facility] [address] [facility] [place] [address], [facility] KETONE Negative Normal NEGATIVE [facility] Comment on above: Performed By: #### 3 1569, 60760, 86389 #### [facility] [address] [place] [address], [facility] LEUK EDUARD Negative Normal NEGATIVE [facility] Comment on above: Performed By: #### 3 1569, 78830, 56922 #### [facility] [address] [place] [address], [facility] MUCUS THREADS OCC Abnormal NONE SEEN [facility] Comment on above: Performed By: #### 3 1569, , 87977 #### [facility] [address] [facility] [place] [address], [facility] Nitrite Ql (U) Negative Normal NEGATIVE [facility] Comment on above: Performed By: #### 3 1569, 21818, 30760 #### [facility] [address] [place] [address], [facility] pH (U) 5.0 [pH] Normal 5.0-8.0 [facility] Comment on above: Performed By: #### 3 1569, 77620, 30803 #### [facility] [address] [facility] [place] [address], [facility] Protein Ql (U) 100 mg/dL Abnormal NEGATIVE [facility] Comment on above: Performed By: #### 3 1569, 32646, 48599 #### [facility] [address] [facility] [place] [address], [facility] RBC NONE SEEN Normal NONE SEEN [facility] Comment on above: Performed By: #### 3 1569, 94468, 81837 #### [facility] [address] SPEC GRAV 1.012 Low 1.015-1.020 [facility] Comment on above: Performed By: #### 3 1569, 59433, 20439 #### [facility] [address] WBC UA 0-2 Abnormal NONE SEEN [facility] Comment on above: Performed By: #### 3 1569, 56982, 66646 #### [facility] [address] Otolaryngology Office/Clinic Noteon 08-20-2021 Otolaryngology Office/Clinic Note Chief Complaint Pt states My nosebleeds have improved History of Present Illness History of Present Illness HPI: Bertha is present in office for a 3 week follow up regarding nosebleeds. Pt said his nosebleeds has stopped. He states he has not started taking the Elliquis. Pt states he is well improved. HE has cautery at last visit with EWN Review of Systems General Adult ROS Fatigue: No Appetite change: No Weight Loss: Yes Cardiovascular EENMT Ear pain: No Hearing loss: No Hoarseness: No Nasal congestion: No Nasal discharge: No Nosebleeds: No Sore_throat: No Tinnitus: No Gastrointestinal Genitourinary Hematologic/Lymphatic Musculoskeletal Neurological Psychiatric Respiratory Cough: No Shortness_of_breath: No Skin Physical Exam Vitals & Measurements T: 36.8 ?C (Temporal Artery) HT: 173 cm WT: 74.2 kg WT: 74.2 kg (Dosing) BMI: 24.79 Overall:[Communicatio n mode is clear, normal] [Appearance- no acute distress, appears stated age and is well nourished] Assistive device:[ none] Head:[normocephalic, no trauma, lesions or asymmetry] Ocular appearance:[ Conjuctiva- clear and bright, no drainage or infection. EOM intact] Nose:[ External- healthy, no sign of asymmetry, lesion or infection] Septum:[ Midline, no sign of perforation, infection or deviation] Turbinates:[ normal, no hypertrophy, mass or polyp] Nasal passages:[ clear, no infection, drainage or obstruction] Mental Status:[Alert and oriented x3][Mood and affect normal][Gait is normal]. Additional Vitals No qualifying data available. Assessment/Plan 1. Epistaxis PT has resolved epistaxis at this point. Nosebleed prevention and precautions reviewed.recheck prn Medical Decision Making Chronic conditions NOT treated during this visit that affected my overall medical decision making: [] Treatment plans discussed but not opted for at this time: [] Prescribed medication that requires intensive monitoring for toxicity: [] I have reviewed the patient?s medication list for medication interactions/contrain dications and/or for upcoming procedures: [yes or no] Time Spent with the Patient I have personally spent [15] minutes on this date, directly related to today's patient visit, including pre and post visit work, for this date of service. Time listed does not include time spent on separately billable services. Problem List/Past Medical History Ongoing Diabetes Hypertension Historical No qualifying data Procedure/Surgical History colonoscopy gallbladder hernia Medications amiodarone 200 mg oral tablet, 200 mg= 1 tabs, Oral, BID amLODIPine, Oral, Daily aspirin 81 mg oral delayed release tablet, 81 mg= 1 tabs, Oral, Daily atorvastatin, Oral, Daily Eliquis 5 mg oral tablet, Not taking glipiZIDE, Oral, Daily Metoprolol Tartrate 50 mg oral tablet, 50 mg= 1 tabs, Oral, BID Trulicity Pen 0.75 mg/0.5 mL subcutaneous solution Allergies No Known Medication Allergies Social History Tobacco Never (less than 100 in lifetime) Use:. Family History Diabetes mellitus: Father and Grandfather (P). Heart attack: Grandfather (P). Electronically signed by Joya Burgess PA-C 08/23/21 09:50 EST Normal [facility] Otolaryngology Office/Clinic Noteon 07-31-2021 Otolaryngology Office/Clinic Note Chief Complaint Patient states I am here for nose bleeds History of Present Illness Is a very pleasant 75-year-old gentleman who was last seen approximately 2 and half years ago for epistaxis mostly on the right. He has done well but recently has had difficulties and was started on Eliquis. While on the Eliquis he has had moderate bleeds from his nose as well as some secondary hemoptysis. He stopped the Eliquis and the bleeding has since stopped. He is here for evaluation. He also has a history of hearing loss related to cerumen impaction noted that his right ear is diminished. Is been no ear pain or drainage. Review of Systems General Appetite change: Yes Weight Loss: Yes Cardiovascular EENMT Dental pain: Yes Ear pain: No Facial pain: No Hearing loss: No Hoarseness: Yes Nasal congestion: No Nosebleeds: Yes Sore_throat: No Tinnitus: No Gastrointestinal Dysphagia: No Genitourinary Hematologic/Lymphatic Musculoskeletal Neurological Psychiatric Respiratory Cough: No Skin Physical Exam Vitals & Measurements HT: 172 cm WT: 72 kg WT: 72 kg (Dosing) BMI: 24.34 General: [Alert and oriented, well nourished, no acute distress]. Eye: [PERRL, EOMI, normal conjunctiva]. HENT: [Normocephalic Ears: Both external ears are healthy without disease. The left canal has a large amount of suspended hairs in the canal which I removed with an alligator. TM is intact healthy. The right canal has not only a large amount of cerumen completely obstructing the TM but is interspersed with small hairs. Of note both his tragus are extremely mushy. This material was removed over approximately 20 minutes with both irrigation 3 different types of loops as well as alligator forceps. After the removal the TM is visible and intact. There is a small abrasion in the posterior canal but is not actively bleeding. He became slightly faint during the removal of the cerumen and was placed supine for approximately 10 minutes after which he felt normal and was sat up for another 5 minutes prior to discharge Nose: Anterior nares is intact on the left without active disease. There is a small bleeding site on the right which I cauterized under magnification without difficulty. There was no further bleeding after this was controlled OC/OP: Voice is moist and healthy. There is no oropharyngeal disease or postnasal drainage. Dentition is intact Neck: [Supple, non-tender, no lymphadenopathy]. Lungs: [Clear to auscultation and percussion, non-labored respiration]. Skin: [Skin is warm, dry and pink, no rashes or lesions]. Neurologic: [Awake, alert, and oriented X3, CN II-XII intact]. Psychiatric: [Cooperative, appropriate mood and affect]. Additional Vitals No qualifying data available. Assessment/Plan 1. Anterior epistaxis 2. Anticoagulant-induced bleeding 3. Bilateral impacted cerumen Plan: He will be seen in follow-up in a couple weeks to ensure that there is no secondary problems after he starts the Eliquis. I have advised him if he can wait a couple days to start the Eliquis that would probably be beneficial in terms of allowing the nose to heal. Also advised him to use some vitamin A&E ointment to his anterior nares a couple times a day. He is also been given an epistaxis handout Medical Decision Making Chronic conditions NOT treated during this visit that affected my overall medical decision making: [] Treatment plans discussed but not opted for at this time: [] Prescribed medication that requires intensive monitoring for toxicity: [] I have reviewed the patient?s medication list for medication interactions/contrain dications and/or for upcoming procedures: [yes or no] Time Spent with the Patient I have personally spent [] minutes on this date, directly related to today's patient visit, including pre and post visit work, for this date of service. Time listed does not include time spent on separately billable services. Problem List/Past Medical History Ongoing Diabetes Hypertension Historical No qualifying data Procedure/Surgical History colonoscopy gallbladder hernia Medications amLODIPine, Oral, Daily aspirin 81 mg oral delayed release tablet, 81 mg= 1 tabs, Oral, Daily atorvastatin, Oral, Daily doxazosin, Oral, Not taking Eliquis 5 mg oral tablet glipiZIDE, Oral, Daily Januvia, Oral, Daily, Not taking lisinopril, Oral, Daily, Not taking metFORMIN, Oral Trulicity Pen 0.75 mg/0.5 mL subcutaneous solution Allergies No Known Medication Allergies Social History Tobacco Never (less than 100 in lifetime) Use:. Family History Diabetes mellitus: Father and Grandfather (P). Heart attack: Grandfather (P). Electronically signed by Ryan Bartlett MD 07/31/21 11:16 EST Normal [facility] *URINE CULTUREon 07-24-2021 *URINE CULTURE Clinical Report: (D) Specimen: URINE Collected: 07/24/2021 00:00 Status: Final Last Updated: 07/26/2021 08:31 ISO (Final) Klebsiella (Enterobacter) aerogenes >100,000 Cfu/Ml ISOLATE: Klebsiella (Enterobacter) aerogenes --- NICK (mcg/ml) AMP./SULBAC (AMS) 16/8 Resistant AMPICILLIN (AM) >16 Resistant AZTREONAM (AZM) <=2 Susceptible CEFAZOLIN (CZ) >16 Resistant CEFTRIAXONE (SERVICE PROVIDER) <=1 Susceptible CIPROFLOXACIN (CIP) <=0.25 Susceptible GENTAMICIN (GM) <=2 Susceptible NITROFURANTOIN (FT) >64 Resistant PIP/TAZO (TZP) 8/4 Susceptible TOBRAMYCIN (TOB) <=2 Susceptible TRIMETH/SULFA (SXT) <=0.5/9.5 Susceptible Normal [facility] Comment on above: Performed By: #### 3 1569, 56289, 31153 #### [facility] [address] [place] [address], [facility] UA,MICROSCOPIC REQUIREDon Appearance (U) TURBID Abnormal CLEAR [facility] Comment on above: Performed By: #### 3 1569, 51283, 45940 #### [facility] [address] [place] [address], [facility] Bilirubin Ql (U) Negative Normal NEGATIVE [facility] Comment on above: Performed By: #### 3 1569, 13524, 06514 #### [facility] [address] [place] [address], [facility] Color (U) CHE Abnormal YELLOW [facility] Comment on above: Performed By: #### 3 1569, 31860, 14482 #### [facility] [address] [facility] [place] [address], [place] EPIS NONE SEEN Normal FEW,OCC,NONE SEEN [facility] Comment on above: Performed By: #### 3 1569, 70469, 94450 #### [facility] [address] [place] [address], [facility] Glucose Ql (U) Negative Normal NEGATIVE [facility] Comment on above: Performed By: #### 3 1569, 75184, 61802 #### [facility] [address] [place] [address], [facility] Hemoglobin Ql (U) Negative Normal NEGATIVE [facility] Comment on above: Performed By: #### 3 1569, 98985, 14843 #### [facility] [address] [facility] [place] [address], [facility] KETONE Negative Normal NEGATIVE [facility] Comment on above: Performed By: #### 3 1569, 15733, 27089 #### [facility] [address] [place] [address], [facility] LEUK EDUARD MODERATE Abnormal NEGATIVE [facility] Comment on above: Performed By: #### 3 1569, 54782, 98722 #### [facility] [address] [facility] [place] [address], [facility] Nitrite Ql (U) Negative Normal NEGATIVE [facility] Comment on above: Performed By: #### 3 1569, 50867, 82437 #### [facility] [address] [place] [address], [facility] pH (U) 5.0 [pH] Normal 5.0-8.0 [facility] Comment on above: Performed By: #### 3 1569, 63828, 75898 #### [facility] [address] [place] [address], [facility] Protein Ql (U) >=500 Abnormal NEGATIVE [facility] Comment on above: Performed By: #### 3 1569, 96879, 79295 #### [facility] [address] [place] [address], [facility] RBC NONE SEEN Normal NONE SEEN [facility] Comment on above: Performed By: #### 3 1569, 25710, 24436 #### [facility] [address] [facility] [place] [address], [facility] SPEC GRAV 1.011 Low 1.015-1.020 [facility] Comment on above: Performed By: #### 3 1569, 00921, 53546 #### [facility] [address] [facility] [place] [address], [facility] WBC UA >100 Abnormal NONE SEEN [facility] Comment on above: Performed By: #### 3 1569, 53988, 62594 #### [facility] [address] PROSTATE SPEC AG FREE % ILon 07-20-2021 FREE PSA 0.3 ug/L Normal [facility] [place] Normal [facility] Comment on above: Result Comment: Test Performed by [email or web address] [address] [place] [address] - Released 07/23/2021 14:16 Result changed by IF on 07/23/2021 14:16. The previous value was Test Performed by [email or web address] [address] [place] [address] [phone].. PROSTATIC SPEC AG 0.7 ug/L Normal 0.0-4.0 [facility] Comment on above: Result Comment: Siemens 56.comulite 2000 immunometric chemiluminescent assay is used. Results obtained with different assay methods or instruments cannot be used interchangeably. PSA PERCENT FREE 42.9 % Normal [facility] Comment on above: Result Comment: In patients with total PSA concentrations of 4-10 ng/mL, the probability of finding prostate cancer on needle biopsy in a patient age 70 years or older is: % Free PSA Probability 0-10% 65% 11-18% 41% 19-25% 30% >25% 16% Other factors may help determine the actual risk of prostate cancer in individual patients. The free PSA percentage is an aid in distinguishing prostate cancer from benign prostatic conditions in men age 50 and older with a total PSA between 3 and 10 ng/mL and negative digital rectal examination findings. BASIC METABOLIC PANELon 12-0 -2020 Calcium [Mass/Vol] 8.4 mg/dL Low 8.6-10.3 [facility] Comment on above: Performed By: #### 3 1569, 91981, 55980 #### [facility] [address] [place] [address], [place] Chloride [Moles/Vol] 107 mmol/L Normal 98-107 [facility] Comment on above: Performed By: #### 3 1569, 20424, 24827 #### [facility] [address] [place] [address], [place] CO2 [Moles/Vol] 22 mmol/L Normal 21-31 [facility] Comment on above: Performed By: #### 3 1569, 07232, 88976 #### [facility] [address] [place] [address], [place] Creatinine [Mass/Vol] 2.26 mg/dL High 0.70-1.30 [facility] Comment on above: Performed By: #### 3 1569, 01724, 39583 #### [facility] [address] [place] [address], [place] eGFR- 34 ml/min/1.73sq m Abnormal >60 [facility] Comment on above: Result Comment: Calc ulation may not be valid for patients over 70 years Performed By: #### 3 1569, 53179, 60801 #### [facility] [address] [place] [address], [place] eGFR- non- 28 ml/min/1.73sq m Abnormal >60 [facility] Comment on above: Result Comment: Calc ulation may not be valid for patients over 70 years Performed By: #### 3 1569, 01652, 65744 #### [facility] [address] [place] [address], [place] Glucose [Mass/Vol] 250 mg/dL High 70-100 [facility] Comment on above: Performed By: #### 3 156, , 01719 #### [facility] [address] [facility] [place] [address], [facility] Potassium [Moles/Vol] 4.1 mmol/L Normal 3.5-5.1 [facility] Comment on above: Performed By: #### 3 156, , 15183 #### [facility] [address] Sodium [Moles/Vol] 137 mmol/L Normal 136-145 [facility] Comment on above: Performed By: #### 3 1568, , 94993 #### [facility] [address] [facility]. [address] Urea nitrogen [Mass/Vol] 38 mg/dL High 7-25 [facility] Comment on above: Performed By: #### 3 1568, , 26269 #### [facility] [address] [facility]. [address] CBC W/DIFFon 06-20-2021 ABS IMM GRANS 0.0 10*3/uL Normal 0.0-0.2 [facility] Comment on above: Performed By: #### 3 1568, , 85090 #### [facility] [address] [facility]. [address] ABS NEUTROPHILS 6.5 10*3/uL Normal 1.6-7.6 [facility] Comment on above: Performed By: #### 3 1568, , 32812 #### [facility] [address] [facility] [place] [address], [facility] Basophils (Bld) [#/Vol] 0.1 10*3/uL Normal 0.0-0.2 [facility] Comment on above: Performed By: #### 3 156, 02783, 73717 #### [facility] [address] [place] [address], [facility] Basophils/100 WBC (Bld) 0.7 % Normal 0.0-1.0 T [facility] Comment on above: Performed By: #### 3 156, , 33492 #### [facility] [address] [place] [address], [facility] Eosinophils (Bld) [#/Vol] 0.3 10*3/uL Normal 0.0-0.5 [facility] Comment on above: Performed By: #### 3 1568, , 11565 #### [facility] [address] [place] [id number], [facility] Eosinophils/100 WBC (Bld) 2.6 % Normal 0.0-6.0 [facility] Comment on above: Performed By: #### 3 1568, , 78277 #### [facility] [address] [place] [id number], [facility] Erythrocyte distribution width (RBC) [Ratio] 14.3 % Normal 11.5-15.0 [facility] Comment on above: Performed By: #### 3 1568, , 19920 #### [facility] [address] [place] [address], [facility] Hematocrit (Bld) [Volume fraction] 35.8 % Low 39.0-50.0 [facility] Comment on above: Performed By: #### 3 1568, , 41294 #### [facility] [address] [place] [address], [place] Hemoglobin (Bld) [Mass/Vol] 11.6 g/dL Low 13.0-17.0 [facility] Comment on above: Performed By: #### 3 156, , 62229 #### [facility] [address] [place] [address], [place] IMMATURE GRANS 0.4 % Normal 0.0-1.0 [facility] Comment on above: Performed By: #### 3 156, , 72706 #### [facility] [address] [place] [address], [facility] Lymphocytes (Bld) [#/Vol] 1.7 10*3/uL Normal 1.2-4.0 [facility] Comment on above: Performed By: #### 3 156, , 69825 #### [facility] [address] [place] [address], [facility] Lymphocytes/100 WBC (Bld) 17.9 % Low 20.0-45.0 [facility] Comment on above: Performed By: #### 3 1568, , 34670 #### [facility] [address] MCH (RBC) [Entitic mass] 27.8 pg Normal 27.0-33.0 [facility] Comment on above: Performed By: #### 3 1568, , 15401 #### [facility] [address] [place] [address], [facility] MCHC (RBC) [Mass/Vol] 32.4 g/dL Normal 32.0-35.0 [facility] Comment on above: Performed By: #### 3 1568, , 77079 #### [facility] [address] [place] [address], [facility] MCV (RBC) [Entitic vol] 85.9 fL Normal 82.0-98.0 T [facility] Comment on above: Performed By: #### 3 156, , 77384 #### [facility] [address] [place] [address], [facility] Monocytes (Bld) [#/Vol] 0.9 10*3/uL Normal 0.1-1.0 [facility] Comment on above: Performed By: #### 3 156, , 75909 #### [facility] [address] [place] [address], [place] MONOS 9.0 % Normal 5.0-12.0 [facility] Comment on above: Performed By: #### 3 156, , 12287 #### [facility] [address] [place] [address], [facility] Neutrophils/100 WBC (Bld) 69.4 % Normal 40.0-72.0 [facility] Comment on above: Performed By: #### 3 156, , 28632 #### [facility] [address] [place] [id number], [facility] Nucleated RBC/100 WBC (Bld) [Ratio] 0 % Normal 0-0 [facility] Comment on above: Performed By: #### 3 1568, , 51278 #### [facility] [address] [place] [address], [place] PLAT CNT 182 10*3/uL Normal 150-400 [facility] Comment on above: Performed By: #### 3 1568, , 19666 #### [facility] [address] [place] [id number], [facility] RBC (Bld) [#/Vol] 4.17 10*6/uL Low 4.20-5.70 [facility] Comment on above: Performed By: #### 3 1568, , 31315 #### [facility] [address] [place] [address], [place] WBC (Bld) [#/Vol] 9.44 10*3/uL Normal 4.00-10.60 [facility] Comment on above: Performed By: #### 3 1568, , 99404 #### [facility] [address] [place] [id number], [facility] MAGNESIUM BLOODon 06-20-2021 Magnesium [Mass/Vol] 1.9 mg/dL Normal 1.9-2.7 [facility] Comment on above: Performed By: #### 3 1569, 57288, 66198 #### [facility] [address] TSH3 WITH REFLEX FT4on 06-20 TSH 3RD GENERATION 0.68 uIU/mL Normal 0.34-5.60 [facility] Comment on above: Performed By: #### 3 1569, 56889, 94511 #### [facility] [address] CBC Auto DifferentialOrdered By: Maldonado Wilson on 05-08-2021 [employer] # 0.16 [employer] [facility] Work Phone: Absolute Immature Granulocyte 0.05 [employer] Work Phone: Absolute Lymph # 1.64 [employer] [facility] Work Phone: [employer] Leslie # 0.79 [employer] [facility] Work Phone: Basophils (Bld) [#/Vol] 0.04 10*3/uL [employer] Work Phone: Basophils/100 WBC (Bld) 1 % 0 - 2 % [facility] Work Phone: Differential Type NOT REPORTED [employer] Work Phone: Eosinophils/100 WBC (Bld) 2 % 1 - 4 % [facility] Work Phone: Hematocrit (Bld) [Volume fraction] 38.0 % Low 40.7 - 50.3 % [facility] Work Phone: Hemoglobin.gastrointest inal spec 1 Ql (Stl) 12.0 g/dL Low 13.0 - 17.0 g/dL [employer] Phone: Immature granulocytes/100 WBC (Bld) 1 % High 0 [employer] Work Phone: Interpretation and review of laboratory results Abnormal [employer] Work Phone: Lymphocytes/100 WBC (Bld) 20 % Low 24 - 43 % [employer] Phone: MCH (RBC) [Entitic mass] 28.1 pg 25.2 - 33.5 pg [employer] Phone: MCHC (RBC) [Mass/Vol] 31.6 g/dL 28.4 - 34.8 g/dL [employer] Phone: MCV (RBC) [Entitic vol] 89.0 fL 82.6 - 102.9 fL [employer] Phone: Monocytes/100 WBC (Bld) 9 % 3 - 12 % [employer] Work Phone: NRBC Automated 0.0 0.0 per 100 WBC [employer] Phone: Platelet distribution width (Bld) [Ratio] 13.7 % 11.8 - 14.4 % [employer] Phone: Platelet Estimate NOT REPORTED [employer] Phone: Platelet mean volume (Bld) [Entitic vol] 11.0 fL 8.1 - 13.5 fL [employer] Phone: Platelets (Bld) [#/Vol] 182 10*3/uL [employer] Phone: RBC (Bld) [#/Vol] 4.27 10*6/uL 4.21 - 5.7 7 m/uL [employer] Phone: RBC (Bld) [#/Vol] NOT REPORTED [employer] Phone: Segmented neutrophils/100 WBC (Bld) 67 % High 36 - 65 % [employer] Phone: Segs [employer] 5[employer] Work Phone: WBC (Bld) [#/Vol] 8.4 10*3/uL [employer] Work Phone: WBC (Bld) [#/Vol] NOT REPORTED [facility] Work Phone: [facility] Work Phone: Microscopic UrinalysisOrdere d By: Maldonado Wilson on 05-08-2021 - [facility] Work Phone: Amorphous, UA NOT REPORTED None [facility] Work Phone: Bacteria, UA 4+ Abnormal None [facility] Work Phone: Casts UA NOT REPORTED /LPF [facility] Work Phone: Crystals, UA NOT REPORTED None /HPF [facility] Work Phone: Epithelial Cells UA 0 TO 2 [facility] Work Phone: Interpretation and review of laboratory results Abnormal [facility] Work Phone: Mucus, UA NOT REPORTED None [facility] Work Phone: Other Observations UA NOT REPORTED NOT REQ. [facility] Work Phone: RBC, UA 5 TO 10 [facility] Work Phone: Renal Epithelial, UA NOT REPORTED 0 /HPF [facility] Work Phone: Trichomonas, UA NOT REPORTED None [facility] Work Phone: WBC, UA GREATER THAN 100 [facility] Work Phone: Yeast, UA NOT REPORTED None [facility] Work Phone: [facility] Work Phone: UrinalysisOrdered By: Maldonado Wilson on 05-08-2021 Bilirubin Urine Negative NEGATIVE [facility] Work Phone: Color, UA Yellow Yellow [facility] Work Phone: Glucose, Ur 2+ Abnormal NEGATIVE [facility] Work Phone: Interpretation and review of laboratory results Abnormal [facility] Work Phone: Ketones Ql (U) Negative NEGATIVE [facility] [employer] Work Phone: Leukocyte esterase Test strip Ql (U) LARGE Abnormal NEGATIVE [facility] Work Phone: Nitrite, Urine Negative NEGATIVE [facility] [employer] Work Phone: pH, UA 6.0 [facility] Work Phone: Protein, UA 2+ Abnormal NEGATIVE [facility] Work Phone: Specific [place], UA 1.020 [employer] [facility] Work Phone: Turbidity UA Cloudy Abnormal Clear [facility] Work Phone: Urinalysis Comments NOT REPORTED [facility] Work Phone: Urine Hgb 1+ Abnormal NEGATIVE [facility] [employer] Work Phone: Urobilinogen, Urine Normal Normal [facility] [employer] Work Phone: [facility] Work Phone: BONE MARROW SCREENon 04-26- 021 BONE MARROW SCR SEE BONE MARROW SPECIAL REPORT FORM Normal [facility] Comment on above: Performed By: #### 3 1569, 48740, 54517 #### [address] BIOPSY BONE MARROWon 04-13 CT BIOPSY BONE MARROW [facility] Department of Radiology [address] [place] [id number] Patient Name: BERTHA PULIDO : 1945 Sex: M Age: Race: White Pt. Location: 29 Patient Status: O Ordered Date: 04/12/2021 2:50:00 PM Completed Date: 04/26/2021 12:19 PM Requesting Provider: LUIS FELIPE OLMSTEAD Attending Provider: LUIS FELIPE OLMSTEAD Report Copy To: TRACEY SEPULVEDA Signs & Symptoms: D47.2 Monoclonal gammopathy I10 History: [place] On ASA and Eliquis Covid 04/20/21 Leonora 8600 Comments: Exam: CT BIOPSY BONE MARROW CT BIOPSY BONE MARROW 04/26/2021 12:19 PM CLINICAL INDICATIONS: D47.2 Monoclonal gammopathy I10 TECHNOLOGIST COMMENTS: right sided bone marrow bx All CT scans at this facility use dose modulation, iterative reconstruction, and/or weight based dosing when appropriate to reduce radiation dose to as low as reasonably achievable. INFORMED CONSENT: Reason for procedure was discussed with the patient. The procedure expectations risks benefits options and alternatives were discussed. All the questions were answered. The patient understood that results cannot be guaranteed. The procedure is indicated and risks are acceptable. Consent was obtained. Timeout: [employer] protocol timeout verification performed. MEDICATIONS: 2 mg of versed and 100 micrograms of Fentanyl were administered for conscious sedation. Vital signs were continuously monitored by nursing staff throughout the procedure. Performing physician:Dr. Camilo and Dr. Simpson, attending physician was present for all critical portions of the procedure. Total conscious sedation time is 15 minutes. Start time: 1145 End time: 1200 Samples obtained:Bone marrow aspirates x3 and core bone marrow biopsy x1 PROCEDURE: Estimated blood loss: 3 mL IMPRESSION: CT guidance was utilized for procedure. The patient was brought to the CT preprocedure area and verbal and written consent was obtained. The patient was brought into the CT suite and positioned right lateral on the CT table. A CT scan is obtained site localization. The area was then marked, cleaned, and sterilely draped. 1% lidocaine was used as local anesthetic. The bone marrow biopsy system was then inserted through the skin and into the posterior iliac bone under CT guidance. Once its position was confirmed, 3 bone marrow aspirates were obtained and given directly to lab personnel. A 3 cm core biopsy was then drilled, removed, and given to lab personnel. The biopsy system was removed and pressure was placed on the by the biopsy site. A sterile dressing was then placed over the procedure site. The patient tolerated the procedure well. The patient will remain in radiology post procedure area 30 minutes for observation and then will be released back to the prior service. Successful CT-guided bone marrow biopsy of the right posterior ilium. No immediate complications Approved by:Richar Joen1 1:40 PM. I, Satish Camilo,have reviewed the image(s) and agree with the findings in this report. Electronically signed: Satish Camilo. Transcribed by: [email or web address], User Resident: RICHAR SIMPSON Electronically Signed by: SATISH CAMILO @ 04/26/2021 02:52 PM I personally read this/these film(s) with this resident Normal [facility] H[facility]OLOG[facility] RESULT Results faxed to ordering physician and sent to HIM Normal [facility] Comment on above: Result Comment: Test performed by [employer] * [address] [place] [address], [address] * [place], [place] * [phone] [employer]: Branden Echols M.D. RESULTS FAXED TO [phone] Performed By: #### 3 1569, 50567, 57792 #### [facility] [address] [place] [address], [facility] APTTon 04-23-2021 aPTT Coag (Bld) [Time] 30.9 s Normal 25.0-35.0 Th e [facility] Comment on above: Result Comment: ALL RESULTS MUST BE INTERPRETED WITH RESPECT TO BLOOD DRAWING ARTIFACT OR DILUTION ERROR OF ANTICOAGULANT AT THE TIME OF SAMPLING. THE APTT SHOULD NOT BE USED TO MONITOR UNFRACTIONATED HEPARIN THERAPY, THIS LABORATORY NO LONGER HAS AN ESTABLISHED THERAPEUTIC RANGE BASED ON THE APTT. IT IS RECOMMENDED THAT THE UFH - HEPARIN ASSAY (ANTI-XA ACTIVITY) BE USED FOR THIS PURPOSE. Performed By: #### 3 156, , 63208 #### [facility] [address] CBC W/DIFFon 04-23-2021 ABS IMM GRANS 0.0 10*3/uL Normal 0.0-0.2 [facility] Comment on above: Performed By: #### 3 156, , 94583 #### [facility] [address] [place] [address], [facility] ABS NEUTROPHILS 6.5 10*3/uL Normal 1.6-7.6 [facility] Comment on above: Performed By: #### 3 1568, , 21847 #### [facility] [address] [place] [address], [facility] Basophils (Bld) [#/Vol] 0.1 10*3/uL Normal 0.0-0.2 [facility] Comment on above: Performed By: #### 3 1568, , 29290 #### [facility] [address] [place] [address], [facility] Basophils/100 WBC (Bld) 0.5 % Normal 0.0-1.0 [facility] Comment on above: Performed By: #### 3 1568, , 40826 #### [facility] [address] [place] [address], [facility] Eosinophils (Bld) [#/Vol] 0.1 10*3/uL Normal 0.0-0.5 [facility] Comment on above: Performed By: #### 3 1568, , 47962 #### [facility] [address] [place] [address], [facility] Eosinophils/100 WBC (Bld) 1.5 % Normal 0.0-6.0 [facility] Comment on above: Performed By: #### 3 1568, , 33116 #### [facility] [address] [place] [address], [facility] Erythrocyte distribution width (RBC) [Ratio] 14.5 % Normal 11.5-15.0 [facility] Comment on above: Performed By: #### 3 156, , 33369 #### [facility] [address] [place] [id number], [facility] Hematocrit (Bld) [Volume fraction] 35.1 % Low 39.0-50.0 [facility] Comment on above: Performed By: #### 3 156, , 29917 #### [facility] [address] [place] [address], [facility] Hemoglobin (Bld) [Mass/Vol] 11.8 g/dL Low 13.0-17.0 [facility] Comment on above: Performed By: #### 3 1568, , 73281 #### [facility] [address] [place] [address], [facility] IMMATURE GRANS 0.4 % Normal 0.0-1.0 [facility] Comment on above: Performed By: #### 3 1568, , 91046 #### [facility] [address] [place] [address], [facility] Lymphocytes (Bld) [#/Vol] 2.1 10*3/uL Normal 1.2-4.0 [facility] Comment on above: Performed By: #### 3 1568, , 84388 #### [facility] [address] [place] [address], [facility] Lymphocytes/100 WBC (Bld) 21.6 % Normal 20.0-45.0 [facility] Comment on above: Performed By: #### 3 156, , 15468 #### [facility] [address] [place] [id number], [facility] MCH (RBC) [Entitic mass] 28.3 pg Normal 27.0-33.0 [facility] Comment on above: Performed By: #### 3 156, , 55183 #### [facility] [address] MCHC (RBC) [Mass/Vol] 33.6 g/dL Normal 32.0-35.0 [facility] Comment on above: Performed By: #### 3 156, , 03787 #### [facility] [address] MCV (RBC) [Entitic vol] 84.2 fL Normal 82.0-98.0 [facility] Comment on above: Performed By: #### 3 156, , 09492 #### [facility] [facility] [address] [facility] Monocytes (Bld) [#/Vol] 0.8 10*3/uL Normal 0.1-1.0 [facility] Comment on above: Performed By: #### 3 1568, , 79499 #### [facility] 3000 [facility]. [address] MONOS 8.6 % Normal 5.0-12.0 [facility] Comment on above: Performed By: #### 3 156, , 02503 #### [facility] 3000 [facility]. [address] Neutrophils/100 WBC (Bld) 67.4 % Normal 40.0-72.0 [facility] Comment on above: Performed By: #### 3 1568, , 48744 #### [facility] 3000 [facility]. [address] Nucleated RBC/100 WBC (Bld) [Ratio] 0 % Normal 0-0 [facility] Comment on above: Performed By: #### 3 156, , 02451 #### [facility] [address] [place] [address], [facility] PLAT CNT 150 10*3/uL Normal 150-400 [facility] Comment on above: Performed By: #### 3 1569, 73461, 40671 #### [facility] [address] [place] [address], [facility] RBC (Bld) [#/Vol] 4.17 10*6/uL Low 4.20-5.70 [facility] Comment on above: Performed By: #### 3 1569, 70308, 93317 #### [facility] [address] [place] [address], [facility] WBC (Bld) [#/Vol] 9.64 10*3/uL Normal 4.00-10.60 [facility] Comment on above: Performed By: #### 3 1569, 32228, 50965 #### [facility] [address] [facility] [place] [address], [facility] COMP METABOLIC PANELon 04-23 ALBUMIN CANCELED Normal 3.5-5.7 [facility] Comment on above: Order Comment: DR. Delores RODRIGUEZ LIKE A REDRAW TO CONFIRM RESULTS PER CALL WITH SEBAS TSE ON05.03.21. FAXED OUTPATIENT REDRAW SLIP TO [facility]. Result Comment: The released value 3.5 was canceled by [email or web address] on 04/24/2021 11:48 Performed By: #### 3 1569, 00008, 63078 #### [facility] [address] [place] [id number], [facility] ALKALINE PHOSPH CANCELED Normal 34-104 [facility] Comment on above: Order Comment: DR. Delores RODRIGUEZ LIKE A REDRAW TO CONFIRM RESULTS PER CALL WITH SEBAS TSE ON05.03.21. FAXED OUTPATIENT REDRAW SLIP TO [facility]. Result Comment: The released value 113 was canceled by [email or web address] on 04/24/2021 11:48 Performed By: #### 3 1569, 98686, 83108 #### [facility] [address] [place] [address], [facility] ALT (SGPT) CANCELED Normal 7-52 [facility] Comment on above: Order Comment: DR. Delores RODRIGUEZ LIKE A REDRAW TO CONFIRM RESULTS PER CALL WITH SEBAS TSE ON05.03.21. FAXED OUTPATIENT REDRAW SLIP TO [facility]. Result Comment: The released value 18 was canceled by [email or web address] on 04/24/2021 11:48 Performed By: #### 3 1569, 02595, 50777 #### [facility] [address] [place] [address], [facility] AST (SGOT) CANCELED Normal 13-39 [facility] Comment on above: Order Comment: DR. Delores RODRIGUEZ LIKE A REDRAW TO CONFIRM RESULTS PER CALL WITH SEBAS TSE ON05.03.21. FAXED OUTPATIENT REDRAW SLIP TO [facility]. Result Comment: The released value 15 was canceled by [email or web address] on 04/24/2021 11:48 Performed By: #### 3 1569, 05688, 21731 #### [facility] [address] [place] [address], [facility] CALCIUM CANCELED Normal 8.6-10.3 [facility] Comment on above: Order Comment: DR. Delores RODRIGUEZ LIKE A REDRAW TO CONFIRM RESULTS PER CALL WITH SEBAS TSE 05.03.21. FAXED OUTPATIENT REDRAW SLIP TO [facility]. Result Comment: The released value 8.8 was canceled by [email or web address] on 04/24/2021 11:48 Performed By: #### 3 1569, 20308, 74096 #### [facility] [address] [place] [address], [facility] CARBON DIOXIDE CANCELED Normal 21-31 [facility] Comment on above: Order Comment: DR. Delores RODRIGUEZ LIKE A REDRAW TO CONFIRM RESULTS PER CALL WITH SEBAS TSE 05.03.21. FAXED OUTPATIENT REDRAW SLIP TO [facility]. Result Comment: The released value 21 was canceled by [email or web address] on 04/24/2021 11:48 Performed By: #### 3 1569, 70450, 29337 #### [facility] [address] [place] [address], [facility] CHLORIDE CANCELED Normal 98-107 [facility] Comment on above: Order Comment: DR. Delores RODRIGUEZ LIKE A REDRAW TO CONFIRM RESULTS PER CALL WITH SEBAS TSE ON05.03.21. FAXED OUTPATIENT REDRAW SLIP TO [facility]. Result Comment: The released value 103 was canceled by [email or web address] on 04/24/2021 11:48 Performed By: #### 3 1569, 23068, 35281 #### [facility] [address] [place] [address], [facility] CREATININE CANCELED Normal 0.70-1.30 [facility] Comment on above: Order Comment: DR. Delores RODRIGUEZ LIKE A REDRAW TO CONFIRM RESULTS PER CALL WITH SEBAS TSE ON05.03.21. FAXED OUTPATIENT REDRAW SLIP TO [facility]. Result Comment: The released value 2.79 was canceled by [email or web address] on 04/24/2021 11:48 Performed By: #### 3 1569, 63971, 23438 #### [facility] [address] [place] [address], [facility] eGFR- CANCELED Normal >60 Th e [facility] Comment on above: Order Comment: DR. Delores RODRIGUEZ LIKE A REDRAW TO CONFIRM RESULTS PER CALL WITH SEBAS TSE 05.03.21. FAXED OUTPATIENT REDRAW SLIP TO [facility]. Result Comment: Calc ulation may not be valid for patients over 70 years The released value 27 was canceled by [email or web address] on 04/24/2021 11:48 Performed By: #### 3 1569, 51019, 90382 #### [facility] [address] [place] [address], [facility] eGFR- non- CANCELED Normal >60 [facility] Comment on above: Order Comment: DR. Delores RODRIGUEZ LIKE A REDRAW TO CONFIRM RESULTS PER CALL WITH SEBAS TSE ON05.03.21. FAXED OUTPATIENT REDRAW SLIP TO [facility]. Result Comment: Calc ulation may not be valid for patients over 70 years The released value 22 was canceled by [email or web address] on 04/24/2021 11:48 Performed By: #### 3 1569, 92005, 07681 #### [facility] [address] [place] [address], [facility] GLUCOSE CANCELED Normal 70-100 [facility] Comment on above: Order Comment: DR. Delores RODRIGUEZ LIKE A REDRAW TO CONFIRM RESULTS PER CALL WITH SEBAS TSE ON05.03.21. FAXED OUTPATIENT REDRAW SLIP TO [facility]. Result Comment: The released value 201 was canceled by [email or web address] on 04/24/2021 11:48 Performed By: #### 3 1569, 81569, 66320 #### [facility] [address] [place] [address], [place] POTASSIUM CANCELED Normal 3.5-5.1 [facility] Comment on above: Order Comment: DR. Delores RODRIGUEZ LIKE A REDRAW TO CONFIRM RESULTS PER CALL WITH SEBAS TSE ON05.03.21. FAXED OUTPATIENT REDRAW SLIP TO [facility]. Result Comment: The released value 3.9 was canceled by [email or web address] on 04/24/2021 11:48 Performed By: #### 3 1569, 26634, 78660 #### [facility] [address] [place] [address], [place] SODIUM CANCELED Normal 136-145 [facility] Comment on above: Order Comment: DR. Delores RODRIGUEZ LIKE A REDRAW TO CONFIRM RESULTS PER CALL WITH SEBAS TSE ON05.03.21. FAXED OUTPATIENT REDRAW SLIP TO [facility]. Result Comment: The released value 140 was canceled by [email or web address] on 04/24/2021 11:48 Performed By: #### 3 1569, 04043, 01741 #### [facility] [address] [place] [address], [facility] TOTAL BILI CANCELED Normal 0.3-1.0 [facility] Comment on above: Order Comment: DR. Delores RODRIGUEZ LIKE A REDRAW TO CONFIRM RESULTS PER CALL WITH SEBAS TSE ON05.03.21. FAXED OUTPATIENT REDRAW SLIP TO [facility]. Result Comment: The released value 0.5 was canceled by [email or web address] on 04/24/2021 11:48 Performed By: #### 3 1569, 02004, 41134 #### [facility] [address] [place] [address], [facility] TOTAL PROTEIN CANCELED Normal 6.0-8.3 [facility] Comment on above: Order Comment: DR. Delores RODRIGUEZ LIKE A REDRAW TO CONFIRM RESULTS PER CALL WITH SEBAS TSE ON05.03.21. FAXED OUTPATIENT REDRAW SLIP TO [facility]. Result Comment: The released value 7.1 was canceled by [email or web address] on 04/24/2021 11:48 Performed By: #### 3 1569, 68389, 44397 #### [facility] [address] [place] [address], [facility] UREA NITROGEN CANCELED Normal 7-25 [facility] Comment on above: Order Comment: DR. Delores RODRIGUEZ LIKE A REDRAW TO CONFIRM RESULTS PER CALL WITH SEBAS TSE 05.03.21. FAXED OUTPATIENT REDRAW SLIP TO [facility]. Result Comment: The released value 45 was canceled by [email or web address] on 04/24/2021 11:48 Performed By: #### 3 1569, 81398, 24761 #### [facility] [address] [place] [address], [facility] IMMUNOFIXATION BLOODon 04-23 IgA [Mass/Vol] 527 mg/dL High 60-413 [facility] Comment on above: Performed By: #### 3 1569, 15018, 85119 #### [facility] [address] [place] [address], [facility] IgG [Mass/Vol] 1790 mg/dL High 591-1540 [facility] Comment on above: Performed By: #### 3 1569, 33742, 72642 #### [facility] [address] [place] [id number], [facility] IgM [Mass/Vol] 112 mg/dL Normal 54-285 [facility] Comment on above: Performed By: #### 3 1569, 68878, 91175 #### [facility] [address] [place] [address], 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 See separate report. Performed By: #### 3 1569, 54740, 75620 #### [facility] [address] [place] [address], [facility] PROTEIN ELECT Nikos 04-23-2021 Protein [Mass/Vol] 6.8 g/dL Normal 6.0-8.3 [facility] Comment on above: Performed By: #### 3 1569, 13214, 05179 #### [facility] [address] [place] [address], [facility] PROTEIN ELECT Normal [facility] Comment on above: Result Comment: Hypo albuminemia is seen. This may be dilutional (from I.V. fluids) or nutritional in origin. There is a diffuse (polyclonal) gammopathy. SEE SEPARATE REPORT Performed By: #### 3 1569, 65554, 24189 #### [facility] [address] [place] [place] [address], [facility] PROTHROMBIN TIMEon 1 INR Coag (PPP) [Relative time] 1.30 {INR} High 0.91-1.16 [facility] Comment on above: Result Comment: ACCC P RECOMMENDED INR FOR WARFARIN THERAPY ------- CONDITION INR PROPHYLAXIS OF VENOUS THROMBOSIS 2-3 (HIGH-RISK SURGERY) TREATMENT OF VENOUS THROMBOSIS 2-3 TREATMENT OF PULMONARY EMBOLISM 2-3 PREVENTION OF SYSTEMIC EMBOLISM: 2-3 ACUTE MYOCARDIAL INFARCTION TISSUE HEART VALVES VALVULAR HEART DISEASE ATRIAL FIBRILLATION RECURRENT SYSTEMIC EMBOLISM MECHANICAL HEART VALVE 2.5-3.5 FROM: ORAL ANTICOAGULANTS. MECHANISM OF ACTION, CLINICAL EFFECTIVENESS, AND OPTIMAL THERAPEUTIC RANGE. CHEST 1995;108:231S-246S. Performed By: #### 3 1569, 19779, 71967 #### [facility] [address] PT Coag (PPP) [Time] 16.2 s High 12.3-14.8 [facility] Comment on above: Result Comment: ALL RESULTS MUST BE INTERPRETED WITH RESPECT TO BLOOD DRAWING ARTIFACT OR DILUTION ERROR OF ANTICOAGULANT AT THE TIME OF SAMPLING. Performed By: #### 3 1569, 99935, 34402 #### [facility] [address] SERUM FREE LIGHT CHAINS ILon 04-23-2021 FREE KAPPA LIGHT CHAINS 9.73 mg/dL High 0.37-1.94 [facility] FREE KAPPA/LAMBDA RATIO 1.51 Normal 0.26-1.65 [facility] FREE LAMBDA LIGHT CHAINS 6.45 mg/dL High 0.57-2.63 [facility] IL Normal [facility] Comment on above: Result Comment: Test Performed by [email or web address] [address] [place] [address] - Released 04/23/2021 18:48 Result changed by IF on 04/23/2021 18:48. The previous value was Test Performed by [email or web address] [address] [place], [place] [id number] [phone].. SKELETAL SURVEYon 04-20-2021 SKELETAL SURVEY [facility] Department of Radiology [address] [place] [address] Patient Name: BERTHA PULIDO : 1945 Sex: M Age: Race: White Pt. Location: 29 Patient Status: O Ordered Date: 04/12/2021 10:20:00 AM Completed Date: 04/20/2021 02:02 PM Requesting Provider: LUIS FELIPE OLMSTEAD Attending Provider: LUIS FELIPE OLMSTEAD Report Copy To: Signs & Symptoms: D47.2 Monoclonal gammopathy I10 History: [place] Comments: Exam: SKELETAL SURVEY SKELETAL SURVEY 04/20/2021 2:02 PM CLINICAL INDICATIONS: D47.2 Monoclonal gammopathy I10 TECHNOLOGIST COMMENTS: Monoclonal gammopathy QUESTION FOR THE RADIOLOGIST: PROTOCOL: COMPARISON: None. TECHNIQUE: Frontal and lateral views of the skull, chest, abdomen, and spine, bilateral oblique views of the ribs, and frontal views of the upper and lower extremities obtained according to the guidelines for the [employer] FINDINGS: Bowel: No lytic lesions Cervical spine: Degenerative changes with anterior osteophyte formation C4-C7. No lytic lesions Thoracic spine: Degenerative changes in the lower thoracic spine with left lateral osteophyte formation no lytic lesions Lumbar spine: Degenerative changes in the lumbar spine with anterior osteophyte formation L2-S1. Set arthritic changes L3-L4 L4-L5 and L5-S1. No lytic lesions. Pelvis: No fracture no dislocation no lytic lesion seen Right humerus: No lytic lesions identified degenerative changes in the acromioclavicular joint with subacromial spurring Left humerus: No lytic lesions identified. No fracture. Femurs: No fracture. No dislocation no suspicious lytic lesions identified IMPRESSION: Generative changes as detailed above especially in the spine no evidence of lytic or sclerotic bone lesions. No fractures. Further radiographs to better visualize these findings include: Follow up skeletal survey/selected radiographs are recommended in 10-14 days. Electronically signed: Teressa Morrissey. Transcribed by: [email or web address], User Resident: Electronically Signed by: TERESSA MORRISSEY @ 04/20/2021 02:30 PM Normal [facility] BASIC METABOLIC PANELon - Calcium [Mass/Vol] 8.8 mg/dL Normal 8.6-10.3 [facility] Comment on above: Performed By: #### 3 1569, 49615, 30755 #### [facility] [address] [place] [address], [place] Chloride [Moles/Vol] 104 mmol/L Normal 98-107 [facility] Comment on above: Performed By: #### 3 1569, 73337, 16972 #### [facility] [address] [place] [address], [place] CO2 [Moles/Vol] 25 mmol/L Normal 21-31 [facility] Comment on above: Performed By: #### 3 1569, 80324, 52916 #### [facility] [address] [place] [address], [place] Creatinine [Mass/Vol] 2.56 mg/dL High 0.70-1.30 [facility] Comment on above: Performed By: #### 3 1569, 38165, 48649 #### [facility] [address] [place] [address], [place] eGFR- 30 ml/min/1.73sq m Abnormal >60 [facility] Comment on above: Result Comment: Calc ulation may not be valid for patients over 70 years Performed By: #### 3 1569, 57112, 46451 #### [facility] [address] eGFR- non- 25 ml/min/1.73sq m Abnormal >60 [facility] Comment on above: Result Comment: Calc ulation may not be valid for patients over 70 years Performed By: #### 3 1569, 32181, 12067 #### [facility] [address] [place] [address], [facility] Glucose [Mass/Vol] 219 mg/dL High 70-100 [facility] Comment on above: Performed By: #### 3 156, , 91776 #### [facility] [address] Potassium [Moles/Vol] 4.6 mmol/L Normal 3.5-5.1 [facility] Comment on above: Performed By: #### 3 156, , 66501 #### [facility] [address] [place] [address], [facility] Sodium [Moles/Vol] 136 mmol/L Normal 136-145 [facility] Comment on above: Performed By: #### 3 156, , 62302 #### [facility] [address] [place] [place] [address], [facility] Urea nitrogen [Mass/Vol] 42 mg/dL High 7-25 [facility] Comment on above: Performed By: #### 3 1569, 81031, 69413 #### [facility] [address] [place] [address], [facility] CBC W/DIFFon 03-28-2021 ABS IMM GRANS 0.0 10*3/uL Normal 0.0-0.2 [facility] Comment on above: Performed By: #### 3 156, , 17938 #### [facility] [address] [place] [address], [place] ABS NEUTROPHILS 6.4 10*3/uL Normal 1.6-7.6 [facility] Comment on above: Performed By: #### 3 156, , 29639 #### [facility] [address] [place] [address], [place] Basophils (Bld) [#/Vol] 0.1 10*3/uL Normal 0.0-0.2 [facility] Comment on above: Performed By: #### 3 156, , 18126 #### [facility] [address] [place] [address], [place] Basophils/100 WBC (Bld) 0.7 % Normal 0.0-1.0 [facility] Comment on above: Performed By: #### 3 1568, , 84937 #### [facility] [address] [place] [address], [place] Eosinophils (Bld) [#/Vol] 0.1 10*3/uL Normal 0.0-0.5 [facility] Comment on above: Performed By: #### 3 1568, , 44290 #### [facility] [address] [place] [address], [place] Eosinophils/100 WBC (Bld) 1.3 % Normal 0.0-6.0 [facility] Comment on above: Performed By: #### 3 1568, , 49015 #### [facility] [address] [place] [address], [place] Erythrocyte distribution width (RBC) [Ratio] 14.6 % Normal 11.5-15.0 [facility] Comment on above: Performed By: #### 3 156, , 53978 #### [facility] [address] [place] [address], [place] Hematocrit (Bld) [Volume fraction] 38.8 % Low 39.0-50.0 [facility] Comment on above: Performed By: #### 3 156, , 41881 #### [facility] [address] [facility] [address] Hemoglobin (Bld) [Mass/Vol] 12.5 g/dL Low 13.0-17.0 [facility] Comment on above: Performed By: #### 3 156, , 34465 #### [facility] [address] [facility] [place] [address], [facility] IMMATURE GRANS 0.4 % Normal 0.0-1.0 [facility] Comment on above: Performed By: #### 3 156, , 85666 #### [facility] 3000 [facility]. [address] Lymphocytes (Bld) [#/Vol] 1.8 10*3/uL Normal 1.2-4.0 [facility] Comment on above: Performed By: #### 3 1568, , 43330 #### [facility] [address] [facility]. [address] Lymphocytes/100 WBC (Bld) 19.6 % Low 20.0-45.0 [facility] Comment on above: Performed By: #### 3 1568, , 34676 #### [facility] [address] [facility] [address] MCH (RBC) [Entitic mass] 27.7 pg Normal 27.0-33.0 [facility] Comment on above: Performed By: #### 3 156, , 98057 #### [facility] [address] [facility] [place] [address], [facility] MCHC (RBC) [Mass/Vol] 32.2 g/dL Normal 32.0-35.0 [facility] Comment on above: Performed By: #### 3 156, 48653, 83855 #### [facility] [address] [place] [id number], [facility] MCV (RBC) [Entitic vol] 85.8 fL Normal 82.0-98.0 T he [facility] Comment on above: Performed By: #### 3 156, , 83112 #### [facility] [address] [place] [address], [facility] Monocytes (Bld) [#/Vol] 0.7 10*3/uL Normal 0.1-1.0 [facility] Comment on above: Performed By: #### 3 1568, , 59487 #### [facility] [address] [place] [address], [facility] MONOS 8.1 % Normal 5.0-12.0 [facility] Comment on above: Performed By: #### 3 1568, , 98706 #### [facility] [address] [place] [address], [facility] Neutrophils/100 WBC (Bld) 69.9 % Normal 40.0-72.0 [facility] Comment on above: Performed By: #### 3 1568, , 62769 #### [facility] [address] [place] [id number], [facility] Nucleated RBC/100 WBC (Bld) [Ratio] 0 % Normal 0-0 [facility] Comment on above: Performed By: #### 3 156, , 23957 #### [facility] [address] [place] [id number], [place] PLAT CNT 152 10*3/uL Normal 150-400 [facility] Comment on above: Performed By: #### 3 156, , 14467 #### [facility] [address] [place] [id number], [place] RBC (Bld) [#/Vol] 4.52 10*6/uL Normal 4.20-5.70 [facility] Comment on above: Performed By: #### 3 1569, 37337, 05322 #### [facility] [address] WBC (Bld) [#/Vol] 9.17 10*3/uL Normal 4.00-10.60 [facility] Comment on above: Performed By: #### 3 1569, 13851, 96647 #### [facility] [address] [facility] [address] HEMOGLOBIN A1Con 03-28-2021 Glucose [Moles/Vol] 183 mmol/L Normal [facility] Comment on above: Performed By: #### 3 1569, 07846, 28514 #### [facility] [address] [facility] [address] HbA1c (Bld) [Mass fraction] 8.0 % High 4.0-6.0 [facility] Comment on above: Performed By: #### 3 [id number], [id number], [id number] #### [facility] [address] [facility] MAGNESIUM BLOODon 03-28-2021 Magnesium [Mass/Vol] 2.0 mg/dL Normal 1.9-2.7 [facility] Comment on above: Performed By: #### 3 [id number], [id number], [id number] #### [facility] [address] [facility] Basic Metabolic PanelOrdered By: Tracey Sepulveda on 02-07-2021 Anion gap [Moles/Vol] 12 mmol/L 9 - 17 mmol/L [employer] Phone: Calcium [Mass/Vol] 8.9 mg/dL 8.6 - 10. 4 mg/dL [facility] Phone: Chloride [Moles/Vol] 102 mmol/L 98 - 10 7 mmol/L [employer] Phone: CO2 [Moles/Vol] 20 mmol/L 20 - 31 mmol/L [employer] Phone: Creatinine [Mass/Vol] 2.55 mg/dL High 0.70 - 1.20 mg/dL [employer] Phone: GFR 30 mL/min Low >60 shopp Phone: GFR Non- 25 mL/min Low >60 [employer] Phone: Glucose [Mass/Vol] 191 mg/dL High 70 - 99 mg/dL [employer] Phone: Interpretation and review of laboratory results Abnormal [employer] Phone: Potassium [Moles/Vol] 4.7 mmol/L 3.7 - 5.3 mmol/L [employer] Phone: Sodium [Moles/Vol] 134 mmol/L Low 135 - 144 mmol/L [employer] Phone: Urea nitrogen (BldV) [Mass/Vol] 51 mg/dL High 8 - 23 mg/dL [employer] Phone: Urea nitrogen/Creatinine (Bld) [Mass ratio] 20 [employer] Phone: Laboratory - Chemistry and C hemistry - challengeOrdered By: Tracey Sepulveda on 02-07-2021 GFR/1.73 sq M.predicted MDRD (S/P/Bld) [Vol rate/Area] [employer] Phone: Comment on above: Average GFR for 70 o r more years old: 75 mL/min/1.73sq m Chronic Kidney Disease: <60 mL/min/1.73sq m Kidney failure: <15 mL/min/1.73sq m eGFR calculated using average adult body mass. Additional eGFR calculator available at: http://www.[employer] [place]/multiple_crcl_2012.htm Stage 1: Some kidney damage normal GFR Stage 2: Mild kidney damage GFR 60-89 Stage 3: Moderate kidney damage GFR 30-59 Stage 4: Severe kidney damage GFR 15-29 Stage 5: Severe kidney damage GFR <15 ESRD - chronic treatment by dialysis or transplant MagnesiumOrdered By: Tracey weiner on 02-07-2021 Magnesium [Mass/Vol] 2.2 mg/dL 1.6 - 2 .6 mg/dL [facility] [employer] Work Phone: Microscopic UrinalysisOrdere d By: Tracey Sepulveda on 02-07-2021 - [facility] Work Phone: Amorphous, UA NOT REPORTED None [employer] Work Phone: Bacteria, UA 2+ Abnormal None [facility] Work Phone: Casts UA NOT REPORTED /LPF [facility] Work Phone: Crystals, UA NOT REPORTED None /HPF [facility] Work Phone: Epithelial Cells UA 0 TO 2 [facility] Work Phone: Interpretation and review of laboratory results Abnormal [facility] Work Phone: Mucus, UA NOT REPORTED None [facility] Work Phone: Other Observations UA NOT REPORTED NOT REQ. M [facility] [employer] Work Phone: RBC, UA 2 TO 5 [facility] Work Phone: Renal Epithelial, UA NOT REPORTED 0 /HPF Me [facility] Work Phone: Trichomonas, UA NOT REPORTED None [facility] Work Phone: WBC, UA GREATER THAN 100 [facility] [employer] [facility] Work Phone: Yeast, UA NOT REPORTED None [facility] Work Phone: [facility] Work Phone: No Panel InformationOrdered By: Tracey Sepulveda on 02-07-2021 [facility] Work Phone: PhosphorusOrdered By: Tracey Sepulveda on 02-07-2021 Phosphate [Mass/Vol] 4.1 mg/dL 2.5 - 4 .5 mg/dL [facility] Work Phone: UrinalysisOrdered By: Tracey Sepulveda on 02-07-2021 Bilirubin Urine Negative NEGATIVE [facility] Work Phone: Color, UA YELLOW YELLOW [facility] Work Phone: Glucose, Ur Negative NEGATIVE [facility] Work Phone: Interpretation and review of laboratory results Abnormal [facility] Work Phone: Ketones Ql (U) Negative NEGATIVE [facility] Work Phone: Leukocyte esterase Test strip Ql (U) LARGE Abnormal NEGATIVE [facility] Work Phone: Nitrite, Urine Negative NEGATIVE [facility] Work Phone: pH, UA 6.0 [facility] Work Phone: Protein, UA 2+ Abnormal NEGATIVE [facility] Work Phone: Specific [place], UA 1.020 [facility] [employer] Work Phone: Turbidity UA CLEAR CLEAR [facility] Work Phone: Urinalysis Comments NOT REPORTED [facility] [employer] Work Phone: Urine Hgb 1+ Abnormal NEGATIVE [facility] Work Phone: Urobilinogen, Urine Normal Normal [facility] Work Phone: [facility] Work Phone: C3 ComplementOrdered By: Cori Sepulveda on 01-19-2021 Complement C3 122 mg/dL 90 - 180 mg/dL [facility] Work Phone: C4 ComplementOrdered By: Cori Sepulveda on 01-19-2021 Complement C4 25 mg/dL 10 - 40 mg/dL [facility] Work Phone: CBCOrdered By: Tracey Sepulveda on 01-19-2021 Hematocrit (Bld) [Volume fraction] 34.0 % Low 40.7 - 50.3 % [employer] Phone: Hemoglobin.gastrointest inal spec 1 Ql (Stl) 11.1 g/dL Low 13.0 - 17.0 g/dL [employer] Phone: Interpretation and review of laboratory results Abnormal [employer] Phone: MCH (RBC) [Entitic mass] 28.4 pg 25.2 - 33.5 pg [employer] Phone: MCHC (RBC) [Mass/Vol] 32.6 g/dL 28.4 - 34.8 g/dL [employer] Phone: MCV (RBC) [Entitic vol] 87.0 fL 82.6 - 102.9 fL [employer] Phone: NRBC Automated 0.0 0.0 per 100 WBC [employer] Phone: Platelet distribution width (Bld) [Ratio] 14.4 % 11.8 - 14.4 % [employer] Phone: Platelet mean volume (Bld) [Entitic vol] 11.3 fL 8.1 - 13.5 fL [employer] Phone: Platelets (Bld) [#/Vol] 180 10*3/uL [employer] Phone: RBC (Bld) [#/Vol] 3.91 10*6/uL Low 4.21 - 5.7 7 m/uL [employer] Phone: WBC (Bld) [#/Vol] 8.8 10*3/uL [employer] Phone: [employer] Phone: Comprehensive Metabolic Pane lOrdered By: Tracey Sepulveda on 01-19-2021 Albumin [Mass/Vol] 3.6 g/dL 3.5 - 5.2 g/dL [employer] Phone: Albumin/Globulin [Mass ratio] 0.8 {ratio} Low [employer] Phone: ALP (Bld) [Catalytic activity/Vol] 113 U/L 40 - 129 U/L [employer] Phone: ALT [Catalytic activity/Vol] 50 U/L High 5 - 41 U/L [employer] Phone: Anion gap [Moles/Vol] 13 mmol/L 9 - 17 mmol/L [employer] Phone: AST [Catalytic activity/Vol] 27 U/L <40 [employer] Phone: Bilirubin [Mass/Vol] 0.27 mg/dL Low 0.3 - 1 .2 mg/dL [employer] Phone: Calcium [Mass/Vol] 8.8 mg/dL 8.6 - 10. 4 mg/dL [employer] Phone: Chloride [Moles/Vol] 97 mmol/L Low 98 - 10 7 mmol/L [employer] Phone: CO2 [Moles/Vol] 21 mmol/L 20 - 31 mmol/L [employer] Phone: Creatinine [Mass/Vol] 3.49 mg/dL High 0.70 - 1.20 mg/dL [employer] Phone: Free PSA/Total PSA [Mass fraction] 7.9 g/dL 6.4 - 8.3 g/dL [employer] Phone: GFR 21 mL/min Low >60 [employer] Phone: GFR Non- 17 mL/min Low >60 [employer] Phone: Glucose [Mass/Vol] 331 mg/dL High 70 - 99 mg/dL [employer] Phone: Interpretation and review of laboratory results Abnormal [employer] Phone: Potassium [Moles/Vol] 4.5 mmol/L 3.7 - 5.3 mmol/L [employer] Phone: Sodium [Moles/Vol] 131 mmol/L Low 135 - 144 mmol/L [employer] Phone: Urea nitrogen (BldV) [Mass/Vol] 69 mg/dL High 8 - 23 mg/dL [employer] Phone: Urea nitrogen/Creatinine (Bld) [Mass ratio] 20 [employer] Phone: [employer] Phone: Creatinine, Random UrineOrde red By: Tracey Sepulveda on 01-19-2021 Creatinine, Ur 62.4 mg/dL 39.0 - 259.0 mg/dL [employer] Phone: [employer] Phone: Laboratory - Chemistry and C hemistry - challengeOrdered By: Tracey Sepulveda on 01-19-2021 GFR/1.73 sq M.predicted MDRD (S/P/Bld) [Vol rate/Area] [employer] Phone: Comment on above: Average GFR for 70 o r more years old: 75 mL/min/1.73sq m Chronic Kidney Disease: <60 mL/min/1.73sq m Kidney failure: <15 mL/min/1.73sq m eGFR calculated using average adult body mass. Additional eGFR calculator available at: http://www.[employer]com/multiple_crcl_2012.htm Stage 1: Some kidney damage normal GFR Stage 2: Mild kidney damage GFR 60-89 Stage 3: Moderate kidney damage GFR 30-59 Stage 4: Severe kidney damage GFR 15-29 Stage 5: Severe kidney damage GFR <15 ESRD - chronic treatment by dialysis or transplant No Panel InformationOrdered By: Tracey Sepulveda on 01-19-2021 [employer] Phone: Protein, urine, randomOrdere d By: Tracey Sepulveda on 01-19-2021 Protein (U) [Mass/Vol] 52 mg/dL [facility] [employer] Work Phone: Comment on above: No normal range esta blished. [facility] Work Phone: Urinalysis, Chem onlyOrdered By: Tracey Sepulveda on 01-19-2021 Bilirubin Urine Negative NEGATIVE [facility] Work Phone: Color, UA YELLOW YELLOW [facility] Work Phone: Glucose, Ur Negative NEGATIVE [facility] Work Phone: Interpretation and review of laboratory results Abnormal [facility] Work Phone: Ketones Ql (U) Negative NEGATIVE [facility] Work Phone: Leukocyte esterase Test strip Ql (U) Negative NEGATIVE [facility] Work Phone: Nitrite, Urine Negative NEGATIVE [facility] Work Phone: pH, UA 5.5 [facility] Work Phone: Protein, UA 1+ Abnormal NEGATIVE [facility] Work Phone: Specific [place], UA 1.015 [facility] [employer] Work Phone: Turbidity UA CLEAR CLEAR [facility] Work Phone: Urinalysis Comments NOT REPORTED [facility] [employer] Work Phone: Urine Hgb Negative NEGATIVE [facility] Work Phone: Urobilinogen, Urine Normal Normal [facility] Work Phone: [facility] Work Phone: Vitamin D 25 HydroxyOrdered By: Tracey Sepulveda on 01-19-2021 Interpretation and review of laboratory results Abnormal [facility] Work Phone: Vit D, 25-Hydroxy 28.3 ng/mL Low 30.0 - 100 .0 ng/mL [facility] Work Phone: Comment on above: Reference Range: Vitamin D status Range Deficiency <20 ng/mL Mild Deficiency 20-30 ng/mL Sufficiency 30-100 ng/mL Toxicity >100 ng/mL [facility] Work Phone: Microscopic UrinalysisOrdere d By: Tracey Sepulveda on 01-13-2021 - [facility] Work Phone: Amorphous, UA NOT REPORTED None [facility] Work Phone: Bacteria, UA 4+ Abnormal None [facility] Work Phone: Casts UA NOT REPORTED /LPF [facility] Work Phone: Crystals, UA NOT REPORTED None /HPF [facility] Work Phone: Epithelial Cells UA 2 TO 5 [facility] Work Phone: Interpretation and review of laboratory results Abnormal [facility] Work Phone: Mucus, UA NOT REPORTED None [facility] Work Phone: Other Observations UA NOT REPORTED NOT REQ. M [facility] [employer] Work Phone: RBC, UA 20 TO 50 [facility] Work Phone: Renal Epithelial, UA NOT REPORTED 0 /HPF Me [facility] Work Phone: Trichomonas, UA NOT REPORTED None [facility] Work Phone: WBC, UA GREATER THAN 100 [facility] Work Phone: Yeast, UA NOT REPORTED None [facility] Work Phone: [facility] Work Phone: Urinalysis Reflex to Culture Ordered By: Tracey Sepulveda on 01-13-2021 Bilirubin Urine Negative NEGATIVE [facility] Work Phone: Color, UA YELLOW YELLOW [facility] Work Phone: Glucose, Ur Negative NEGATIVE [facility] Work Phone: Interpretation and review of laboratory results Abnormal [facility] Work Phone: Ketones Ql (U) Negative NEGATIVE [facility] Work Phone: Leukocyte esterase Test strip Ql (U) LARGE Abnormal NEGATIVE [facility] Work Phone: Nitrite, Urine Negative NEGATIVE [facility] [employer] Work Phone: pH, UA 6.0 [facility] Work Phone: Protein, UA 2+ Abnormal NEGATIVE [facility] Work Phone: Specific [place], UA 1.020 [facility] [employer] Work Phone: Turbidity UA CLOUDY Abnormal CLEAR [facility] Work Phone: Urinalysis Comments NOT REPORTED [facility] [employer] Work Phone: Urine Hgb 3+ Abnormal NEGATIVE [facility] Work Phone: Urobilinogen, Urine Normal Normal [facility] Work Phone: [facility] Work Phone: Comprehensive Metabolic Pane [facility] 06-17-2019 Albumin [Mass/Vol] 3.2 g/dL Low 3.5 - 5.2 g/dL [place], [place] Albumin/Globulin [Mass ratio] 0.8 {ratio} Low [place] ALP [Catalytic activity/Vol] 109 U/L 40 - 129 U/L [place] ALT [Catalytic activity/Vol] 12 U/L 5 - 41 U/L [place] Anion gap [Moles/Vol] 10 mmol/L 9 - 17 mmol/L [place] AST [Catalytic activity/Vol] 13 U/L <40 [place] Bilirubin Ql (U) 0.37 mg/dL 0.3 - 1.2 mg/dL [place] Bun/Cre Ratio 15 [place] Calcium [Mass/Vol] 8.8 mg/dL 8.6 - 10. 4 mg/dL [place] Chloride [Moles/Vol] 97 mmol/L Low 98 - 10 7 mmol/L [place] CO2 [Moles/Vol] 26 mmol/L 20 - 31 mmol/L [place] Creatinine [Mass/Vol] 1.58 mg/dL High 0.7 - 1.2 mg/dL [place] GFR 52 mL/min Low >60 [place] GFR Non- 43 mL/min Low >60 [place] Glucose [Mass/Vol] 163 mg/dL High 70 - 99 mg/dL [place] Potassium [Moles/Vol] 4.4 mmol/L 3.7 - 5.3 mmol/L [place] Protein [Mass/Vol] 7.1 g/dL 6.4 - 8.3 g/dL [place] Sodium [Moles/Vol] 133 mmol/L Low 135 - 144 mmol/L [place] Urea nitrogen [Mass/Vol] 23 mg/dL 8 - 23 mg/dL [place] Lipid Panelon 06-17-2019 Cholesterol [Mass/Vol] 76 mg/dL <200 [place] Comment on above: Cholesterol Guidelines: <200 Desirable 200-240 Borderline >240 Undesirable Cholesterol in HDL [Mass/Vol] 28 mg/dL Low >40 [place] Comment on above: HDL Guidelines: <40 Undesirable 40-59 Borderline >59 Desirable Cholesterol in LDL [Mass/Vol] 25 mg/dL 0 - 130 mg/dL [place] Comment on above: LDL Guidelines: <100 Desirable 100-129 Near to/above Desirable 130-159 Borderline >159 Undesirable Direct (measured) LDL and calculated LDL are not interchangeable tests. Cholesterol in VLDL [Mass/Vol] NOT REPORTED 1 - 30 mg/dL [place] Cholesterol.total/Blanche sterol in HDL [Mass ratio] 2.7 {ratio} <5 [place] Triglyceride [Mass/Vol] 114 mg/dL <150 [place], [place] Comment on above: Triglyceride Guidelines: <150 Desirable 150-199 Borderline 200-499 High >499 Very high Based on AHA Guidelines for fasting triglyceride, April 2012. Metabolic Panelon 06-17-2019 GFR/1.73 sq M predicted among non-blacks MDRD (S/P/Bld) [Vol rate/Area] [place] Comment on above: Average GFR for 70 o r more years old: 75 mL/min/1.73sq m Chronic Kidney Disease: <60 mL/min/1.73sq m Kidney failure: <15 mL/min/1.73sq m eGFR calculated using average adult body mass. Additional eGFR calculator available at: http://www.[employer] [place]/multiple_crcl_2012.htm Stage 1: Some kidney damage normal GFR Stage 2: Mild kidney damage GFR 60-89 Stage 3: Moderate kidney damage GFR 30-59 Stage 4: Severe kidney damage GFR 15-29 Stage 5: Severe kidney damage GFR <15 ESRD - chronic treatment by dialysis or transplant Microalbumin, Uron 9 Albumin/Creatinine DL <= 20 mg/L (24H U) [Mass ratio] 3804 mg/L High <21 [place] Albumin/Creatinine DL <= 20 mg/L (U) [Ratio] 2822 High <17 mcg/mg creat [place] Creatinine [Mass/Vol] 134.8 mg/dL 39 - 2 59 mg/dL [place] Interpretation and review of laboratory results Abnormal [place] Otheron 06-17-2019 Interpretation and review of laboratory results Abnormal [place] T4, Freeon 06-17-2019 Thyroxine, Free 1.34 ng/dL 0.93 - 1.7 ng/dL [place] TSH without Reflexon 019 TSH Qn 0.87 m[IU]/L [place] Vitamin B12on 06-17-2019 Cobalamin (Vitamin B12) [Mass/Vol] 477 pg/mL 232 - 1245 pg/mL [place] Vitamin D 25 Hydroxyon 06-17 Interpretation and review of laboratory results Abnormal [place] Vit D, 25-Hydroxy 9.6 ng/mL Low 30 - 100 ng/mL [place] Comment on above: Reference Range: Vitamin D status Range Deficiency <20 ng/mL Mild Deficiency 20-30 ng/mL Sufficiency 30-100 ng/mL Toxicity >100 ng/mL Encounters Encounter Date Encounter Type Care Provider Facility Start: 07-30-2023 Orders Only Debbie Fish [employer] Work Phone: [facility] Start: 04-23-2023 End: 04-23-2023 ambulatory [facility] Start: 01-29-2023 End: 01-29-2023 ambulatory [facility] Start: 01-29-2023 End: 01-29-2023 Encounter for general adult medical examination without abnormal findings [facility] Start: 2022 End: 2022 ambulatory [facility] Start: 10-14-2022 End: 10-14-2022 ambulatory [facility] Start: 09-23-2022 End: 09-24-2022 [facility] Start: 09-23-2022 End: 09-23-2022 Subsequent hospital visit by physician Tracey Sepulveda DO Work Phone: [facility] Start: 09-16-2022 End: 09-17-2022 ambulatory [facility]JULA [facility] Start: 09-16-2022 End: 09-16-2022 Subsequent hospital visit by physician Tracey Sepulveda DO Work Phone: [facility] Start: 09-09-2022 End: 09-10-2022 ambulatory [facility]ULA [facility] Start: 09-09-2022 End: 09-09-2022 Subsequent hospital visit by physician Tracey Sepulveda DO Work Phone: [facility] Start: 08-27-2022 End: 08-31-2022 Evaluation and management of inpatient [facility] Start: 07-31-2022 End: 07-31-2022 [facility] Start: 07-27-2022 End: 07-28-2022 ambulatory CHRIS RUELAS Facility:[facility] Start: 04-16-2022 End: 04-17-2022 ambulatory MARU SADLER Facility:[facility] Start: 09-28-2021 End: 09-29-[address] DOCTOR VEGA Facility:[facility] Start: 06-01-2021 End: 06-25-2021 ambulatory TRACEY SEPULVEDA Facility:[facility] Start: 05-08-2021 End: 05-08-2021 Subsequent hospital visit by physician Tracey Sepulveda DO Work Phone: [facility] Start: 04-23-2021 End: 04-24-2021 ambulatory TRACEY SEPULVEDA Facility:[facility] Start: 02-07-2021 End: 02-07-2021 Subsequent hospital visit by physician Tracey Sepulveda DO Work Phone: [facility] Start: 01-19-2021 End: 01-19-2021 Subsequent hospital visit by physician Tracey Sepulveda DO Work Phone: [facility] Start: 01-13-2021 End: 01-13-2021 Subsequent hospital visit by physician Tracey Sepulveda DO Work Phone: [facility] Start: 06-17-2019 End: 06-17-2019 Subsequent hospital visit by physician Tracey Sepulveda [facility] Laboratory Procedures Date Procedure Procedure Detail Performing Clinician Start: 09-23-2022 Comprehensive metabo lic panel Manjula Staley MD Work Phone: Start: 09-16-2022 Comprehensive metabo lic panel Manjula Staley MD Work Phone: Start: 09-09-2022 Comprehensive metabo lic panel Manjula Staley MD Work Phone: Start: 05-08-2021 Blood count complete auto&auto difrntl wbc Maldonado Wilson MD Work Phone: Start: 05-08-2021 Urinalysis microscopic only Maldonado Wilson MD Work Phone: Start: 05-08-2021 Urnls dip stick/tabl et rgnt auto w/o microscopy Maldonado Wilson MD Work Phone: Start: 02-07-2021 Basic metabolic pane l calcium total Tracey Sepulveda DO Work Phone: Start: 02-07-2021 Urinalysis microscopic only Tracey Sepulveda DO Work Phone: Start: 02-07-2021 Urnls dip stick/tabl et rgnt auto w/o microscopy Tracey Sepulveda DO Work Phone: Start: 01-19-2021 Complement antigen e ach component Tracey Sepulveda DO Work Phone: Start: 01-19-2021 Comprehensive metabo lic panel Tracey Sepulveda DO Work Phone: Start: 01-19-2021 Urinls dip stick/tab let reagnt non-auto micrscpy Tracey Sepulveda DO Work Phone: Start: 01-13-2021 Urinalysis microscopic only Tracey Sepulveda DO Work Phone: Start: 01-13-2021 Urnls dip stick/tabl et rgnt auto w/o microscopy Tracey Sepulveda DO Work Phone: Start: 06-17-2019 25 hydroxy includes fractions if performed Chris Kelley Work Phone: Start: 06-17-2019 Assay of free thyroxine Chris Kelley Work Phone: Start: 06-17-2019 Assay of thyroid stimulating hormone tsh Chris Kelley Work Phone: Start: 06-17-2019 Comprehensive metabo lic panel Chris Kelley Work Phone: Start: 06-17-2019 Cyanocobalamin vitamin b-12 Chris Kelley Work Phone: Start: 06-17-2019 Lipid panel Chris Kelley Work Phone: Start: 06-17-2019 Urine albumin quantitative Chris Brent Warren Work Phone: Plan of Treatment Date Care Activity Detail Author Start: 06-18-2024 Adult BMI Screening Adult BMI Screen ing [facility] Start: 06-18-2024 Tobacco Screening Tobacco Screening [facility] Start: 12-22-2023 End: 12-22-2023 Patient encounter procedure 12/22/2023 2:45 PM EDT Office Visit [facility] [address] [place] [address] Chris Gueavra MD [address] [place] [address] [facility] Start: 09-17-2023 End: 09-17-2023 Patient encounter procedure 09/17/2023 2:00 PM EST Office Visit [facility] [address] [place] [phone] Debbie Fish, [employer] [address] [place] [address] [facility] Start: 07-27-2023 Lipid panel Lipids [facility] Start: 03-14-2023 COVID-19 Vaccine ( season) COVID-19 Vaccine ( season) [facility] Start: 03-14-2023 Influenza vaccination Influenza Vacc ine [facility] Start: 09-19-2022 End: 09-19-2022 Patient encounter procedure 09/19/2022 Office Visit Urology [facility] Start: 02-11-2022 Influenza vaccination Flu vaccine (# 1) [facility] Start: 02-07-2022 Creatinine measurement Creatinine mo [facility] Work Phone: Start: 02-07-2022 Potassium monitoring Potassium monit [facility] [employer] Phone: Start: 01-19-2022 Creatinine measurement Creatinine mo [facility] Work Phone: Start: 01-19-2022 Potassium monitoring Potassium monit [facility] Work Phone: Start: 09-10-2021 COVID-19 Vaccine (3 - Booster for Pfizer series) COVID-19 Vaccine (3 - Booster for Pfizer series) [facility] Start: 03-14-2021 Influenza vaccination Flu vaccine (# 1) [facility] [employer] Phone: Start: 02-04-2021 Annual Wellness Visi t (AWV) Annual Wellness Visit (AWV) [facility] Start: 06-17-2020 Creatinine measurement Creatinine mo [facility] Phone: Start: 06-17-2020 Creatinine monitoring Creatinine mon [place] Start: 06-17-2020 Lipid panel Lipid screen [facility] Work Phone: Start: 06-17-2020 Potassium monitoring Potassium monit [place] Start: 03-14-2019 Influenza vaccination Flu vaccine (# 1) [place] Start: 2009 Fall Risk Screening Fall Risk Screen ing [facility] Start: 2009 Pneumococcal 65+ yea rs Vaccine (1 of 1 - PPSV23) Pneumococcal 65+ years Vaccine (1 of 1 - PPSV23) [place] Start: 1994 Administration of varicella zoster vaccine Zoster (Shingles) Vaccine (1 of 2) [facility] Start: 1994 Shingles Vaccine (1 of 2) Shingles Vaccine (1 of 2) [facility] [employer] Phone: Start: 10-18-1963 DTaP,Tdap and Td Vaccines (1 - Tdap) DTaP,Tdap and Td Vaccines (1 - Tdap) [facility] Start: 10-18-1963 DTaP/Tdap/Td vaccine (1 - Tdap) DTaP/Tdap/Td vaccine (1 - Tdap) [email or web address] Start: 10-18-1963 Shingles vaccine (1 of 2) Shingles vaccine (1 of 2) [email or web address] Start: 1956 COVID-19 Vaccine (1) COVID-19 Vaccin e (1) [employer] Phone: Start: 1956 Depression Screen Depression Screen [facility] [employer] Start: 1956 Depression Screening Depression Scre ening [employer] Start: 1944 Hepatitis C screening Hepatitis C sc reen [employer] Phone: Start: 1944 Medicare Annual Wellness Visit Medicare Annual Wellness Visit [employer] End: 01-19-2021 GERDA profile GERDA profile Lab Routine Once for 1 Occurrences starting 01/19/2021 until 01/19/2021 [employer] Phone: Comment on above: Once for 1 Occurrenc es starting 01/19/2021 until 01/19/2021 GERDA profile GERDA profile Lab Routine 01/19/2021 4:00 PM EDT [employer] Phone: End: 01-13-2021 Culture, Urine Culture, Urine Microbiology Routine Once for 1 Occurrences starting 01/13/2021 until 01/13/2021 [employer] Phone: Comment on above: Once for 1 Occurrenc es starting 01/13/2021 until 01/13/2021 Culture, Urine [employer] Phone: End: 05-08-2021 Culture, Urine Culture, Urine Microbiology Routine Once for 1 Occurrences starting 05/08/2021 until 05/08/2021 [employer] Phone: Comment on above: Once for 1 Occurrenc es starting 05/08/2021 until 05/08/2021 End: 01-19-2021 Hepatitis B Core Antibody, Total Hepatitis B Core Antibody, Total Lab Routine Once for 1 Occurrences starting 01/19/2021 until 01/19/2021 [employer] Phone: Comment on above: Once for 1 Occurrenc es starting 01/19/2021 until 01/19/2021 Hepatitis B Core Antibody, Total Hepatitis B Core Antibody, Total Lab Routine 01/19/2021 4:00 PM EDT [employer] Phone: End: 01-19-2021 Hepatitis C Antibody Hepatitis C Antibody Lab Routine Once for 1 Occurrences starting 01/19/2021 until 01/19/2021 [employer] Phone: Comment on above: Once for 1 Occurrenc es starting 01/19/2021 until 01/19/2021 Hepatitis C Antibody Hepatitis C Antibody Lab Routine 01/19/2021 4:00 PM EDT [employer] Phone: End: 01-19-2021 Immunofixation serum profile Immunofixation serum profile Lab Routine Once for 1 Occurrences starting 01/19/2021 until 01/19/2021 [employer] Phone: Comment on above: Once for 1 Occurrenc es starting 01/19/2021 until 01/19/2021 Immunofixation serum profile Immunofixation serum profile Lab Routine 01/19/2021 4:26 PM EDT [employer] Phone: End: 01-19-2021 [place]/Lambda Free Lt Chains, Serum Quant [place]/Lambda Free Lt Chains, Serum Quant Lab Routine Once for 1 Occurrences starting 01/19/2021 until 01/19/2021 [employer] Phone: Comment on above: Once for 1 Occurrenc es starting 01/19/2021 until 01/19/2021 [place]/Lambda Free Lt Chains, Serum Quant [place]/Lambda Free Lt Chains, Serum Quant Lab Routine 01/19/2021 4:00 PM EDT [employer] Phone: Protein Electrophoresis, Urine Protein Electrophoresis, Urine Lab Routine 01/19/2021 4:00 PM EDT [employer] Phone: End: 01-19-2021 PTH, Intact PTH, Intact Lab Routine Once for 1 Occurrences starting 01/19/2021 until 01/19/2021 [employer] Phone: Comment on above: Once for 1 Occurrenc es starting 01/19/2021 until 01/19/2021 PTH, Intact PTH, Intact Lab Routine 01/19/2021 4:00 PM EDT [employer] Phone: End: 01-19-2021 Vitamin D 1,25 Dihydroxy Vitamin D 1,25 Dihydroxy Lab Routine Once for 1 Occurrences starting 01/19/2021 until 01/19/2021 [employer] Phone: Comment on above: Once for 1 Occurrenc es starting 01/19/2021 until 01/19/2021 Vitamin D 1,25 Dihydroxy Vitamin D 1,25 Dihydroxy Lab Routine 01/19/2021 4:00 PM EDT [employer] Phone: Immunizations Immunization Date Immunization Notes Care Provider Domenica [facility] 08-12-2019 influenza virus vaccine, unspecified formulation Debbie Fish [employer] [facility] Work Phone: [facility] Payers Date Payer Category Payer Unknown [id number] 2017 Medicare MEDICARE MEDICAR E PART A AND B xxxxxxxxxx 2017-Present [phone] [address] [address] [place] [address] xxxxxxxxxx [id number] 2017 Private Health Insurance [employer] xxxxxxxx 2017-Present [phone] [address] [place] [address] xxxxxxxx [id number] 2017 Private Health Insurance [id number] 2010 Medicare MEDICARE MEDICAR E PART A & B [id number] 2010-Present [phone] [address] [place] [address] [id number] 1959 Medicare [id number] 1959 Private Health Insurance [id number] 1944 Unknown [id number] 1944 Unknown [id number] 1944 Unknown [id number] 1944 Unknown [id number] 1944 Unknown [id number] 1944 Unknown [id number] 1944 Unknown [id number] 1944 Unknown [id number] 1944 Unknown [id number] 1944 Unknown [id number] Unknown [employer]CIAL [employer] RCIAL - GENERIC PLAN [id number] Effective for all dates [address] [place] [address] [id number] Social History Date Type Detail Facility Start: 05-09-2014 End: 10-15-2022 Tobacco smoking status NHIS Never smoker [facility] Start: 05-09-2014 End: 09-19-2022 Alcohol intake Current non-drinker of alcohol (finding) [place], [place] Start: 1945 Sex Assigned At Not on file [place] Start: 08-27-2022 History SDOH Alcohol Std Drinks 0 [facility] [employer] Work Phone: Start: 08-17-2022 End: 08-27-2022 Exposure to SARS-CoV-2 (event) Not sure [email or web address] Start: 10-15-2022 Tobacco use and exposure Smoke less tobacco [facility] Start: 06-18-2023 Alcohol intake Lifetime non-d andrade (finding) [facility] Start: 12-23-2018 End: 06-18-2023 History of Social function [employer] Start: 12-23-2018 End: 06-18-2023 [facility] Procedure Code Equipment Code Equipment Origin al Text Equipment Identifier Dates Once daily [id number] Start: 04-16-2023 Progress note 04-23-2023 Note Date & Type Note Facility 04-23-2023 Note Cardiovascular Medic [facility] SUBJECTIVE Chief Complaint Patient presents with Hypertension Coronary Artery Disease Congestive Heart Failure Atrial Fibrillation Bertha Pulido is a 77 y.o. male here for routine follow-up. PMHx: Diastolic heart failure, CAD s/p CABG 2007, paroxysmal a.fib, HTN, hx TIA/stroke, chronic DVT, CKD, HLD, DM -He's been riding his tricycle daily except Sundays for about 1-1.5hrs. -He hasn't been checking his BP at home. -His leg swelling is up. He was out of his Bumex for about 1 week. He notes he forgot to get it refilled. He resumed his Bumex a couple days ago. Swelling is slowly improving. -Denies CP, dyspnea, orthopnea, PND, dizziness/LH, palpitations, issues with bleeding. -His daughter had a baby boy in January, oldest is 2. Live in [facility]. Patient Active Problem List Diagnosis Hypertension Benign prostatic hyperplasia Bilateral cataracts Coronary atherosclerosis Chronic diastolic heart failure ([facility]/HCC) Diverticulum of bladder Hyperlipidemia Kidney stone Preinfarction syndrome ([facility]) Sleep disorder Spondylolysis of cervical spine Stage 3 chronic kidney disease ([facility]/HCC) Type 2 diabetes mellitus with stage 3b chronic kidney disease ([facility]) Vitamin D deficiency Iron deficiency anemia Atrial fibrillation ([facility]) Stage 4 chronic kidney disease ([facility]) Hypertensive chronic kidney disease with stage 1 through stage 4 chronic kidney disease, or unspecified chronic kidney disease Edema of extremities Monoclonal gammopathy Moderate malnutrition ([facility]) History of cardiovascular disorder Proteinuria Shoulder pain Urinary tract infectious disease Past Medical History: Diagnosis Date Atrial fibrillation ([facility]) Chronic kidney disease Coronary artery disease Deep vein thrombosis ([facility]) Diabetes mellitus ([facility]) Heart disease Hyperlipidemia Hypertension Family History Family history unknown: Yes Social History Tobacco Use Smoking status: Never Smokeless tobacco: Never Vaping Use Vaping Use: Never used Substance Use Topics Alcohol use: Not Currently Drug use: Never No Known Allergies ------ Review of Systems Cardiovascular: Positive for leg swelling. Musculoskeletal: Positive for arthritis and joint pain. All other systems reviewed and are negative. OBJECTIVE Visit Vitals BP 155/77 (BP Location: Left arm, Patient Position: Sitting) Pulse 60 Ht 1.727 m (5' 8 ) Wt 73.9 kg (163 lb) SpO2 99% BMI 24.78 kg/m??? Smoking Status Never BSA 1.88 m??? Medications: Current Outpatient Medications: amiodarone (Pacerone) 200 mg tablet, Take 1 tablet (200 mg) by mouth in the morning., Disp: 90 tablet, Rfl: 3 amLODIPine (Norvasc) 5 mg tablet, Take 1 tablet (5 mg) by mouth in the morning., Disp: 90 tablet, Rfl: 3 apixaban (Eliquis) 2.5 mg tablet, Take 1 tablet (2.5 mg) by mouth in the morning and at bedtime., Disp: 60 tablet, Rfl: 11 aspirin 81 mg EC tablet, Take 1 tablet every day by oral route., Disp: , Rfl: atorvastatin (Lipitor) 20 mg tablet, Take 1 tablet by mouth once daily, Disp: 90 tablet, Rfl: 0 bumetanide (Bumex) 2 mg tablet, Take 1 tablet by mouth once daily, Disp: 90 tablet, Rfl: 0 cholecalciferol, vitamin D3, 50 mcg (2,000 unit) capsule, Take 1 capsule every day by oral route., Disp: , Rfl: dulaglutide (Trulicity) 1.5 mg/0.5 mL pen injector, 1 time a week. On Friday., Disp: , Rfl: glipiZIDE (Glucotrol) 10 mg tablet, Take 1 tablet by mouth in the morning and at bedtime., Disp: , Rfl: Lantus Solostar U-100 Insulin 100 unit/mL (3 mL) pen, INJECT 15 UNITS SUBCUTANEOUSLY AT BEDTIME, Disp: , Rfl: metoprolol tartrate (Lopressor) 50 mg tablet, Take 25 mg by mouth in the morning and at bedtime., Disp: , Rfl: primidone (Mysoline) 50 mg tablet, Take 50 mg by mouth at bedtime., Disp: , Rfl: tamsulosin (Flomax) 0.4 mg 24 hr capsule, Take 1 capsule by mouth once daily (Patient taking differently: Take 0.4 mg by mouth in the morning and at bedtime.), Disp: 60 capsule, Rfl: 0 Physical Exam Constitutional: Appearance: Normal appearance. He is normal weight. HENT: Right Ear: External ear normal. Left Ear: External ear normal. Eyes: Extraocular Movements: Extraocular movements intact. Pupils: Pupils are equal, round, and reactive to light. Neck: Vascular: No carotid bruit. Comments: No JVD Cardiovascular: Rate and Rhythm: Normal rate and regular rhythm. Pulses: Normal pulses. Heart sounds: Normal heart sounds. Comments: Occasional premature beat Pulmonary: Effort: Pulmonary effort is normal. Breath sounds: Normal breath sounds. Abdominal: General: Bowel sounds are normal. Palpations: Abdomen is soft. Musculoskeletal: Cervical back: Neck supple. Right lower leg: Edema present. Left lower leg: Edema present. Comments: +1BL (more content not included)... [facility] Progress note 04-23-2023 Note Date & Type Note Facility 04-23-2023 Note Patient here for 6 m o follow up PAD, chronic diastolic heart failure, hypertension, and CAD. Had routine amiodarone monitoring labs recently. Denies chest pain, SOB, and bleeding on Eliquis. Review of Systems Cardiovascular: Positive for leg swelling. All other systems reviewed and are negative. [facility] Progress note 01-29-2023 Note Date & Type Note Facility 01-29-2023 Note ------ Attestation signed by Lobito Burnett MD at 02/02/2023 8:25 PM By using the attestations below, the signing clinician agrees that I have read and verify that the documentation has been personally reviewed by me and ensure that the documentation accurately reflects the encounter. GE: I discussed the patient with the resident while the patient was in the office or immediately after the patient was seen. We reviewed the katz portions of the service and discussed the plan with the resident. I confirm the resident's documentation. Please note there may be additional personal documentation from me. Reviewed and approved by LOBITO BURNETT on 02/02/23 at 8:23 PM. ------ [facility] Annual Medicare Wellness visit Subjective Chief Complaint: Chief Complaint Patient presents with cdm follow up, 3 month check up. Bertha Pulido is an 77 y.o. male with history of htn, heart failure, CAD, hld, Stage 4 CKD, T2DM, who is here for Annual Wellness Visit. Comprehensive History: Patient Active Problem List Diagnosis Hypertension Benign prostatic hyperplasia Bilateral cataracts Coronary atherosclerosis Chronic diastolic heart failure (CMS/HCC) Diverticulum of bladder Hyperlipidemia Kidney stone Preinfarction syndrome (CMS/HCC) Sleep disorder Spondylolysis of cervical spine Stage 3 chronic kidney disease (CMS/HCC) Type 2 diabetes mellitus with stage 3b chronic kidney disease (CMS/HCC) Vitamin D deficiency Iron deficiency anemia Atrial fibrillation (CMS/HCC) Stage 4 chronic kidney disease (CMS/HCC) Hypertensive chronic kidney disease with stage 1 through stage 4 chronic kidney disease, or unspecified chronic kidney disease Edema of extremities Monoclonal gammopathy Moderate malnutrition (CMS/HCC) History of cardiovascular disorder Proteinuria Shoulder pain Urinary tract infectious disease Past Medical History: Diagnosis Date Atrial fibrillation (CMS/HCC) Chronic kidney disease Coronary artery disease Deep vein thrombosis (CMS/HCC) Diabetes mellitus ([facility]/HCC) Heart disease Hyperlipidemia Hypertension Past Surgical History: Procedure Laterality Date CHOLECYSTECTOMY CORONARY ARTERY BYPASS GRAFT CT GUIDED PERCUTANEOUS BIOPSY BONE 04/26/2021 CT GUIDED PERCUTANEOUS BIOPSY BONE SOUSA CONVERSION HERNIA REPAIR No Known Allergies Social History Socioeconomic History Marital status: Spouse name: None Number of children: None Years of education: None Highest education level: None Occupational History None Tobacco Use Smoking status: Never Smokeless tobacco: Never Vaping Use Vaping Use: Never used Substance and Sexual Activity Alcohol use: Not Currently Drug use: Never Sexual activity: None Other Topics Concern None Social History Narrative None Social Determinants of Health Financial Resource Strain: Not on file Food Insecurity: No Food Insecurity (10/14/2022) Hunger Vital Sign Worried About Running Out of Food in the Last Year: Never true Ran Out of Food in the Last Year: Never true Transportation Needs: No Transportation Needs (10/14/2022) PRAPARE - Transportation Lack of Transportation (Medical): No Lack of Transportation (Non-Medical): No Physical Activity: Unknown (10/14/2022) Exercise Vital Sign Days of Exercise per Week: 6 days Minutes of Exercise per Session: Not on file Stress: No Stress Concern Present (10/14/2022) [employer] - Occupational Stress Questionnaire Feeling of Stress : Not at all Social Connections: Unknown (10/14/2022) Social Connection and Isolation Panel [NHANES] Frequency of Communication with Friends and Family: Not on file Frequency of Social Gatherings with Friends and Family: Not on file Attends Mu-Ism Services: Not on file Active Member of Clubs or Organizations: Not on file Attends Club or Organization Meetings: Not on file Marital Status: Intimate Partner Violence: Not At Risk (10/14/2022) Humiliation, Afraid, Rape, and Kick questionnaire Fear of Current or Ex-Partner: No Emotionally Abused: No Physically Abused: No Sexually Abused: No Housing Stability: Unknown (10/14/2022) Housing Stability Vital Sign Unable to Pay for Housing in the Last Year: No Number of Places Lived in the Last Year: Not on file Unstable Housing in the Last Year: No Family History Family history unknown: Yes I have reviewed and reconciled the medication list with the patient today. Current Outpatient Medications Medication Sig Dispense Refill amiodarone (Pacerone) 200 mg tablet TAKE 1 TABLET BY MOUTH ONCE DAILY WITH MEALS 90 tablet 2 amLODIPine (Norvasc) 5 mg tablet Take 1 tablet (5 mg) by mouth in the morning. 90 tablet 3 amlodipine-atorvastatin (Caduet) 1 (more content not included)... [facility] Progress note 2022 Note Date & Type Note Facility 2022 Note Cardiovascular Medic [facility] SUBJECTIVE Chief Complaint Patient presents with Hypotension Bertha Pulido is a 77 y.o. male here for routine follow-up. PMHx: Diastolic heart failure, CAD s/p CABG 2007, paroxysmal a.fib, HTN, hx TIA/stroke, chronic DVT, CKD, HLD, DM -He reports having issues with his diastolic BP in the 50s, he was not having symptoms. He stopped taking metoprolol and this improved. -He is having issues with left hip pain. -His LE swelling has been stable, he wears compression stockings. -Denies CP, dyspnea, orthopnea, PND, dizziness/LH, palpitations, issues with bleeding. Patient Active Problem List Diagnosis Hypertension Benign prostatic hyperplasia Bilateral cataracts Coronary atherosclerosis Chronic diastolic heart failure (CMS/HCC) Diverticulum of bladder Hyperlipidemia Kidney stone Preinfarction syndrome (CMS/HCC) Sleep disorder Spondylolysis of cervical spine Stage 3 chronic kidney disease (CMS/HCC) Type 2 diabetes mellitus with stage 3b chronic kidney disease (CMS/HCC) Vitamin D deficiency Iron deficiency anemia Atrial fibrillation (CMS/HCC) Stage 4 chronic kidney disease (CMS/HCC) Hypertensive chronic kidney disease with stage 1 through stage 4 chronic kidney disease, or unspecified chronic kidney disease Edema of extremities Monoclonal gammopathy Moderate malnutrition ([facility]) Past Medical History: Diagnosis Date Atrial fibrillation ([facility]) Chronic kidney disease Coronary artery disease Deep vein thrombosis ([facility]) Diabetes mellitus ([facility]) Heart disease Hyperlipidemia Hypertension Family History Family history unknown: Yes Social History Tobacco Use Smoking status: Never Smokeless tobacco: Never Vaping Use Vaping Use: Never used Substance Use Topics Alcohol use: Not Currently Drug use: Never No Known Allergies ------ Review of Systems Cardiovascular: Positive for leg swelling. Musculoskeletal: Positive for arthritis and joint pain. All other systems reviewed and are negative. OBJECTIVE Visit Vitals BP 126/71 (BP Location: Right arm) Pulse 91 Wt 64.4 kg (142 lb) SpO2 97% BMI 20.97 kg/m??? Smoking Status Never BSA 1.77 m??? Medications: Current Outpatient Medications: amiodarone (Pacerone) 200 mg tablet, TAKE 1 TABLET BY MOUTH ONCE DAILY WITH MEALS, Disp: 90 tablet, Rfl: 2 apixaban (Eliquis) 2.5 mg tablet, Take 1 tablet (2.5 mg) by mouth in the morning and at bedtime., Disp: 60 tablet, Rfl: 11 aspirin 81 mg EC tablet, Take 1 tablet every day by oral route., Disp: , Rfl: atorvastatin (Lipitor) 20 mg tablet, Take 1 tablet by mouth once daily, Disp: 90 tablet, Rfl: 0 bumetanide (Bumex) 2 mg tablet, Take 1 tablet by mouth once daily, Disp: 90 tablet, Rfl: 0 cholecalciferol, vitamin D3, 50 mcg (2,000 unit) capsule, Take 1 capsule every day by oral route., Disp: , Rfl: dulaglutide (Trulicity) 1.5 mg/0.5 mL pen injector, 1 time a week. On Friday., Disp: , Rfl: glipiZIDE (Glucotrol) 10 mg tablet, Take 1 tablet by mouth in the morning and at bedtime., Disp: , Rfl: metoprolol tartrate (Lopressor) 50 mg tablet, Take 0.5 tablets by mouth in the morning and at bedtime., Disp: , Rfl: primidone (Mysoline) 50 mg tablet, Take 1 tablet by mouth at bedtime., Disp: , Rfl: tamsulosin (Flomax) 0.4 mg 24 hr capsule, Take 1 capsule by mouth once daily (Patient taking differently: Take 0.4 mg by mouth in the morning and at bedtime.), Disp: 60 capsule, Rfl: 0 amLODIPine (Norvasc) 5 mg tablet, Take 1 tablet (5 mg) by mouth in the morning., Disp: 90 tablet, Rfl: 3 Physical Exam Constitutional: Appearance: Normal appearance. He is normal weight. HENT: Right Ear: External ear normal. Left Ear: External ear normal. Eyes: Extraocular Movements: Extraocular movements intact. Pupils: Pupils are equal, round, and reactive to light. Neck: Vascular: No carotid bruit. Comments: No JVD Cardiovascular: Rate and Rhythm: Normal rate and regular rhythm. Pulses: Normal pulses. Heart sounds: Normal heart sounds. Comments: Occasional premature beat Pulmonary: Effort: Pulmonary effort is normal. Breath sounds: Normal breath sounds. Abdominal: General: Bowel sounds are normal. Palpations: Abdomen is soft. Musculoskeletal: Cervical back: Neck supple. Right lower leg: Edema present. Left lower leg: Edema present. Comments: +1BLE edema, compression stockings in place Skin: General: Skin is warm and dry. Neurological: General: No focal deficit present. Mental Status: He is alert and oriented to person, place, and time. Psychiatric: Mood and Affect: Mood normal. Behavior: Behavior normal. Thought Content: Thought content normal. Judgment: Judgment normal. Labs/Testing/Procedures: Legacy Encounter on 11/21/2021 Component Date Value Ref Range Status (more content not included)... [facility] Progress note 2022 Note Date & Type Note Facility 2022 Note Review of Systems All other systems reviewed and are negative. [facility] Progress note 10-14-2022 Note Date & Type Note Facility 10-14-2022 Note Subjective : Chief Complaint: Bertha Pulido is an 76 y.o. male here for an annual wellness visit. Mr. Pulido is a very pleasant 76-year-old male who comes in today for hospital follow-up and a Medicare annual visit. He was actually admitted to the hospital for abdominal pain and back spasms. He was admitted over a few days and then discharged to rehab. He was in rehab and was recently discharged from rehab. He states that he had been doing quite well. He has been seeing nephrology on a regular basis. 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 And he seems to be stable at the present time. He states that his blood pressure was on the lower end so he cut his beta-kamille on his own. He had an A1c done in August which showed elevated hemoglobin A1c. He has not been taking his blood sugars regularly. But he states that is getting better. He has a follow-up with endocrinology. He otherwise did not have any other significant issues or concerns today. We did a Medicare annual visit today. Admit date: 08/27/2022 Discharge date: 08/30/2022 Admitting Physician: Wandy Padron MD Discharge Diagnoses: Principal Problem: Intractable abdominal pain Active Problems: Atrial fibrillation (HCC) Chronic kidney disease, stage 4 (severe) (HCC) Diabetes mellitus (HCC) Hypertension Urinary retention Moderate malnutrition (HCC) Resolved Problems: * No resolved hospital problems. * Hospital Course: Bertha Pulido is a 76 y.o. male admitted with intractable abdominal pain. He presented to the emergency room with complaints of left lower inguinal abdominal pain and hip pain. Patient stated that his pain began approximately a week ago but was worse. He complained of movement causes pain in both hip and abdomen. Patient denied vomiting but did complain of nausea. He denied fever or chills. Denied chest pain or shortness of breath. He does complain of constipation. During his work-up in the emergency room CT abdomen and pelvis was negative. He was found to have urinary retention of 750 mL and a Sapp catheter was placed. During patient's admission Sapp catheter remained inplace and urology was consulted. Flomax was increased to twice a day and will continue with catheter on discharge until seen by them. General surgery was consulted no intervention required but did agree with constipation. Patient was placed on MiraLAX daily. He was given Dulcolax tabs, milk of magnesia followed by milk of molasses enema with large amount of results. Had a lengthy conversation with the patient regarding this and the need to maintain soft stools daily. Hemodynamically patient is stable. Electrolytes were replaced. PT OT were consulted patient continued to be weak. Patient was agreeable to skilled care will be discharged there today. He will have a repeat CBC with differential and a CMP on September 03. He will follow-up with urology as an outpatient. I didoffer orthopedic evaluation as an outpatient to him for left hip pain however he stated he would like his primary care in [place] to make that referral. I will defer this to them. Patient did decide that he would like to do skilled therapy. Incidentally he did test positive for COVID-19 but is asymptomatic. Plan will be to discharge to [facility] tomorrow morning. Consultants: Dr. Carreon, Gen Surgery; Dr. Bueno, Urology Procedures: none Complications: none Discharge Condition: fair Exam: GEN: Awake, alert and oriented x3. EYES: EOMI, pupils equal NECK: Supple. No lymphadenopathy. No carotid bruit CVS: regular rate and rhythm, no audible murmur PULM: CTA, no wheezes, rales or rhonchi, no acute respiratory distress ABD: Bowels sounds normal. Abdomen is soft. No distention. no tenderness to palpation. EXT: no edema bilaterally . No calf tenderness. NEURO: Moves all extremities. Motor and sensory are grossly intact SKIN: No rashes. No skin lesions. Significant Diagnostic Studies: Lab Results Component Value Date WBC 8.1 08/30/2022 HGB 12.5 (L) 08/30/2022 PLT See Reflexed IPF Result 08/30/2022 Lab Results Component Value Date BUN 40 (H) 08/30/2022 CREATININE 2.29 (H) 08/30/2022 NA 134 (L) 08/30/2022 K 4.3 08/30/2022 CALCIUM 8.5 (L) 08/30/2022 CL 96 (L) 08/30/2022 CO2 29 08/30/2022 LABGLOM 29 (L) 08/30/2022 Comprehensive Medical and Social History Patient Active Problem List Diagnosis Hypertension Benign prostatic hyperplasia Bilateral cataracts Coronary atherosclerosis Chronic diastolic heart failure (CMS/HCC) Diverticulum of bladder Hyperlipidemia Kidney stone Preinfarction syndrome ([facility]) Sleep disorder Spondylolysis of cervical spine Stage 3 chronic kidney disease ([facility]/HCC) Type 2 diabetes mellitus with stage 3b chronic kidney disease ([facility]) Vitamin D deficiency Iron deficiency anemia Atrial fibrillation ([facility]/HCC) Stage 4 chronic kidney disease ([facility]) Hype (more content not included)... [facility] Progress note 09-26-2022 Note Date & Type Note Facility 09-26-2022 Note Transition [facility] Care [facility] Date of Admission: 08/27/2022 Date of Discharge: 09/25/2022 Discharge Diagnosis: Generalized abdominal pain Intractable abdominal pain Ongoing left hip pain Spoke to patient briefly, patient on his way to outpatient rehab for left hip/left sided low back pain. Discharge instructions/medications reviewed. Patient reports blood glucose meter not working, plans to take with him for assistance. Patient eating and drinking without nausea/vomiting. Having regular bowel movements, taking Metamucil. Hospital follow-up appointment confirmed. AZEEM call complete. [facility] Progress note 07-31-2022 Note Date & Type Note Facility 07-31-2022 Note ---- Attestation signed by Herrera Bullard MD at 08/04/2022 8:36 PM I saw, interviewed, examined and evaluated the patient. I participated in the medical management of the patient. I reviewed the fellow Dr. Tomy Stone's note and agree with the fellow's documentation in this note. Herrera Bullard MD Faculty, Division of Nephrology, Department of Medicine, [facility]. ---- Nephrology Clinic Patient: Bertha Pulido; 76 y.o. Visit date: 07/31/22 Reason for today's visit: Follow up for CKD stage 3, Hypertension, and Edema/ Fluid overload SUBJECTIVE: History Of Present Illness: Bertha Pulido is a 76 y.o. male has a past medical history of CKD 3, Diabetes mellitus (CMS/HCC), Heart disease, Hyperlipidemia, and Hypertension. Patient presents today for follow up visit: Leg swelling has not changed, left more than right because of prior DVT No changes in urine output, remains on oral Bumex almost daily Complains of some imbalance when he walks but denies dizziness or lightheadedness upon walking or standing No diarrhea. Constipated No dyspnea on exertion or fatigue No changes in appetite or weight No new medications or medication changes since last visit Blood pressure 137/69 On Amlodipine 10 mg daily, Lopressor 50 mg twice daily, Amiodarone 100 mg daily, Tamsulosin 0.4 mg HS. He takes Bumex 2 mg as needed (taking it almost daily except Sundays when he goes to [employer]) Labs from Jul 27 (done outside, scanned under media in this chart): Serum Cr 2.37 (was 2.8 in February). BUN 46. Na 139. Bicarb 31. eGFR 32. K 4.4 Historical: 05/01/2022: Bertha Pulido is a 76 y.o. male has a past medical history of Diabetes mellitus ([facility]/HCC), Heart disease, Hyperlipidemia, and Hypertension. presents to [facility] Nephrology clinic today for follow up visit He has history of Type 2 Diabetes Mellitus, Hypertension, HFpEF, Afib on eliquis, CAD S/p CABG , history of strokes. Patient was admitted ta [facility] from 01/02/2021 - 01/05/2021 with complain of leg swelling and noted to have MIRIAM. 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 So far work-up is negative including bone marrow biopsy. He has chronic Kidney disease with serum creatinine in range of 2.4 to 2.7 mg/dl. He has non Nephrotic range proteinuria. Patient is in clinic today for follow up. He states he has been doing well. He states that his leg swelling is improved. He uses support stockings. He denies nausea, vomiting, diarrhea, fever, chills, dysuria hematuria Blood pressure is 119/63, heart rate 76. He takes Amlodipine 10 mg daily, Lopressor 50 mg twice daily, Amiodarone 100 mg daily, Tamsulosin 0.4 mg HS. He takes Bumex 2 mg as needed (taking it daily) Labs done recently reviewed: Hb 13.3, Glucose 247, Serum creatinine 2.47, BUN 45, sodium 136, potassium 3.9, bicarb 30, calcium 8.9, phosphorus 3.8, magnesium 2.0, albumin 3.3, Vitamin D 39.4, urine protein to creatinine ratio 1.04, Pth 42. Review of Systems Constitutional: Positive for appetite change. Negative for activity change, fatigue and unexpected weight change. HENT: Negative for congestion, facial swelling and trouble swallowing. Eyes: Negative for photophobia and visual disturbance. Respiratory: Negative for cough and shortness of breath. Cardiovascular: Negative for chest pain, palpitations and leg swelling. Gastrointestinal: Negative for abdominal distention, abdominal pain, constipation, diarrhea, rectal pain and vomiting. Endocrine: Negative for polydipsia, polyphagia and polyuria. Genitourinary: Negative for decreased urine volume, difficulty urinating, dysuria, flank pain, frequency, hematuria, scrotal swelling and urgency. Musculoskeletal: Negative for arthralgias, joint swelling and myalgias. Imbalance Skin: Negative for color change, rash and wound. Allergic/Immunologic: Negative for immunocompromised state. Neurological: Negative for dizziness, tremors, speech difficulty, weakness, numbness and headaches. Psychiatric/Behavioral: Negative for dysphoric mood and sleep disturbance. The patient is not nervous/anxious. OBJECTIVE: Visit Vitals BP 137/69 (BP Location: Left arm, Patient Position: Sitting, BP Cuff Size: Large adult) Pulse 60 Resp 16 Ht 1.753 m (5' 9 ) Wt 71.1 kg (156 lb 12.8 oz) BMI 23.16 kg/m??? Smoking Status Never BSA 1.86 m??? Physical Exam Constitutional: General: He is not in acute distress. Appearance: Normal appearance. HENT: Head: Normocephalic and atraumatic. Eyes: General: No scleral icterus. Extraocular Movements: Extraocular movements intact. Cardiovascular: Rate and Rhythm: Normal rate and regular rhythm. Heart sounds: No murmur heard. Pulmonary: Br (more content not included)... [facility] Instructions Note Date & Type Note Facility Instructions Not on filedocumented in this en counter [facility] Advance Directives Documents on File Type Date Recorded Patient Supervisor Engraving Expl anation Advance Directives and Living Will Power of Printing Plate Setter Documents on File Type Date Recorded Patient Supervisor Engraving Expl anation ACP-Advance Directive ACP-Power of Printing Plate Setter Latest Code Status on File Code Status Date Activated Date Inactivated Comments Full Code 08/27/2022 7:28 PM 08/31/2022 8:28 PM Healthcare Agents on File Name Relationship Healthcare Agent Relationshi p Communication Izabela Pulido Spouse Primary Decision Maker Summary Purpose Family History No Family History Records FoundNo Family History Records FoundNo Family History Records FoundNo Family History Records FoundNo Family History Records Found Additional Source Comments (unrecognized sect ion and content) No Status Records FoundNo Status Records FoundNo Status Records FoundNo Status Records FoundNo Status Records Found INFORMATION SOURCE (unrecogn ized section and content) DATE CREATED AUTHOR 08/24/2021 [facility] DATE CREATED AUTHOR AUTHOR'S ORGANIZ ATION 03/08/2022 [facility] DATE CREATED AUTHOR AUTHOR'S ORGANIZ ATION 07/30/2022 [facility] DATE CREATED AUTHOR AUTHOR'S ORGANIZ ATION [facility]20[facility] DATE CREATED AUTHOR AUTHOR'S ORGANIZ ATION 07/15/2023 [facility] Teams (unrecognized sec tion and content) Fuel System Maintenance Supervisor Relationship Specialty Start Date End Date Tracey Sepulveda DO [address] [place] [address] PCP - General Internal Medicine 11/28/17 FOR RECORDS PERTAINING TO PATIENTS WHO ARE OR HAVE BEEN ENROLLED IN A CHEMICAL DEPENDENCY/SUBSTANCEABUSE PROGRAM, SOME INFORMATION MAY BE OMITTED. This clinical summary was aggregated from multiple sources. Caution should be exercised in using it in the provision of clinical care. This summary normalizes information from multiple sources, and as a consequence, information in this document may materially change the coding, format and clinical context of patient data. In addition, data may be omitted in some cases. CLINICAL DECISIONS SHOULD BE BASED ON THE PRIMARY CLINICAL RECORDS. [facility]. provides no warranty or guarantee of the accuracy or completeness of information in this document.
[2023-08-05 11:58] LABS: Basophils Absolute Auto 0.1 10^3/uL (0.0-0.1); Basophils Percent Auto 0.6 % (0.2-2.0); Eosinophils Absolute Auto 0.3 10^3/uL (0.0-0.7); Hematocrit 42.8 % (42.0-54.0); Hemoglobin 14.1 g/dL (14.0-18.0); Immature Granulocytes Abs Auto 0.03 10^3/uL (0.00-0.03); Immature Granulocytes Pct Auto 0.4 % (0.0-0.5); Lymphocytes Absolute Auto 2.3 10^3/uL (1.2-3.8); Lymphocytes Percent Auto 26.6 % (20.5-60.0); Mean Corpuscular HGB Conc 32.9 g/dL (29.9-35.2); Mean Corpuscular Hemoglobin 30.5 pg (25.9-34.0); Mean Corpuscular Volume 92.4 fL (80.0-94.0); Mean Platelet Volume 9.6 fL (9.5-13.5); Monocytes Absolute Auto 0.8 10^3/uL (0.3-0.8); Monocytes Percent Auto 9.6 % (1.7-12.0); Neutrophils Absolute Auto 5.1 10^3/uL (1.4-6.5); Neutrophils Percent Auto 59.8 % (43.0-75.0); Platelet Count 167 10^3/uL (150-450); Red Blood Count 4.63 10^6/uL (4.70-6.10); Red Cell Distribution Width 12.6 % (11.0-15.0); White Blood Count 8.6 10^3/uL (4.0-11.0)
[2023-08-05 12:26] LABS: Alanine Aminotransferase 49 U/L (16-63); Albumin Globulin Ratio 0.5; Albumin Level 2.8 g/dL (3.4-5.0); Alkaline Phosphatase 157 U/L (46-116); Aspartate Amino Transferase 29 U/L (15-37); BUN Creatinine Ratio 14.5; Bilirubin Total 0.4 mg/dL (0.2-1.0); Calcium 8.7 mg/dL (8.5-10.1); Carbon Dioxide 30.1 mmol/L (21.0-32.0); Chloride 100 mmol/L (98-107); Chol HDL Ratio 2.3; Cholesterol 111 mg/dL (<=200); Estimated GFR (African America 29 (>=60); Estimated GFR (Non-African Ame 24 (>=60); Globulin 5.1 g/dL; Glucose 100 mg/dL (74-106); HDL Cholesterol 49 mg/dL (40-60); Potassium 4.1 mmol/L (3.5-5.1); Sodium 135 mmol/L (136-145); Total Protein 7.9 g/dL (6.4-8.2); Triglycerides 85 mg/dL (<=150)
[2023-08-05 13:19] LABS: Free T4 1.11 ng/dL (0.76-1.46)
[2023-08-05 13:56] LABS: Creatinine Urine Random 72.02 mg/dL (20.00-300.00); Microalbum Creatinine Ratio Ur 295.7 mg/g (0.0-29.9); Microalbumin Urine Random 21.3 mg/dL (<=30.0)
== END 2023-08-05 11:18 | disposition home or self-care (01) ==
LOC: LAB 11:18
DX: Z00.00 Encounter for general adult medical examination without abnormal findings (principal); E11.22 Type 2 diabetes mellitus with diabetic chronic kidney disease; N18.4 Chronic kidney disease, stage 4 (severe); I48.0 Paroxysmal atrial fibrillation; D50.9 Iron deficiency anemia, unspecified; I10 Essential (primary) hypertension; E78.2 Mixed hyperlipidemia; E55.9 Vitamin D deficiency, unspecified; E11.65 Type 2 diabetes mellitus with hyperglycemia
CPT/HCPCS: 36415; 80053; 80061; 82043; 82306; 82570; 83036; 84439; 84443; 85025

== ENCOUNTER 2023-08-05 11:19 | Outpatient (OUT) | payer MEDICARE, OTHER, SELFPAY ==
--- OUTSIDE RECORDS SUMMARY | 2023-08-05 11:27 | XMS_ITS | CCD ---
Author Name Unknown Address [address] [place] [address] Organization [facility] Care Team Providers Care Youth Care Specialist Name Role Phone Tracey Sepulveda Primary Care [...] Unavailable Hejeebu Cori FERRARIni Primary Care Provider [phone] MANJULA STALEY Referring Unavailable HEJEEBU, TRACEY Primary [...] Date of Onset Reaction(s) Facility (1 source) 41594,00; Translations: [95203,00] Propensity to adverse reactions (disorder) 9 [facility] Repository Medications Current Medications Medication Drug Class(es) [...] by mouth. 0 Active polyethylene glycol 3350 38329 mg powder for oral solution (3 sources) [...] current use of insulin ([facility]) Inject 3 mg under the skin once [...] 08-28-2022 Chronic Other aftercare (6 sources) Other detention (current) drug therapy; Translations: [OTH [facility] CURRENT DRUG THERAPY] Onset: 07-27-2022 Episodic Other [...] Test Name Value Interpretation Reference Range Facility [facility] 07-12-2023 Refill [id number] Bertha Pulido 1945 M [facility] Provider Department Center 07/12/2023 TRACEY OROZCO [facility] Comprehensiv Family History Family history unknown: Yes Reason for Visit and Comments: Med Refill [[id number]] [facility] 06-13-2023 Refill [id number] Bertha Pulido 1945 M [facility] Provider Department [place] 06/13/2023 ElizTRACEY SEPULVEDA [facility] Comprehensiv Family History Family history unknown: Yes Reason for Visit and Comments: Med Refill [[id number]] [facility] 04-26-2023 Refill [id number] Bertha Pulido 1945 M [facility] Provider Department [place] 04/26/2023 TRACEY OROZCO [facility] Comprehensiv Family History Family history unknown: Yes Reason for Visit and Comments: Med Refill [[id number]] [facility] Office Visiton 04-23-2023 Follow-up visit [id number] Bertha Pulido 1945 [facility] Provider Department Center 04/23/2023 TIFF MABRY MORRO [facility] Family History Family history unknown: Yes Level of Service:91687 [place] OFFICE/OUTPATIENT ESTABLISHED LOW MDM 20-29 MIN Reason for Visit and Comments: Hypertension [449709] Coronary Artery Disease [187] Congestive Heart Failure [127] Atrial Fibrillation [80] [facility] 36on 04-15-2023 36 Patient is completel y out [facility] Ref[facility] [id number] Bertha Pulido 1945 M Date Provider Department Center 04/07/2023 TRACEY OROZCO [facility] Comprehensiv Family History Family history unknown: Yes Reason for Visit and Comments: Med Refill [[id number]] [facility] 2901-29-2023 29 Addended by: LOBITO BURNETT on: 04/14/2023 03:15 PM Modules accepted: Level of Service [facility] 3601-29-2023 36 Left voice mail for patient to call the office to get scheduled for an appointment [facility] Follow-Upon 01-29-2023 Follow-Up [id number] Bertha Pulido 1945 Provider Department [place] 01/29/2023 YONIS MATHIS [facility] Comprehensiv Family History Family history unknown: Yes Level of Service:23868 [place] OFFICE/OUTPATIENT ESTABLISHED LOW MDM 20-29 MIN (GE) Reason for Visit and Comments: cdm follow up, [Other] - 3 month check up. [facility] 3601-27-2023 36 Please call Bertha to reschedule appointment 01/27/23 kt [facility] Telephoneon 01-27-2023 Telephone [id number] Bertha Pulido 1945 Provider Department [place] 01/27/2023 HERRERA SOLIS [facility] Comprehensiv Family History Family history unknown: Yes [facility] 3601-24-2023 36 Called patient lvm t o contact office back to reschedule appointment with . [facility] Orders Onlyon 01-21-2023 Orders Only [id number] Bertha Pulido 1945 Provider Department [place] 01/21/2023 RAY NEW [facility] Comprehensiv Family History Family history unknown: Yes [facility] Refillon 01-21-2023 Refill [id number] Bertha Pulido 1945 Provider Department [place] 01/21/2023 TRACEY OROZCO [facility] Comprehensiv Family History Family history unknown: Yes Reason for Visit and Comments: Med Refill [[id number]] [facility] 36on 01-06-2023 36 Patient would like t o know if he needs labs before next appointment. Please advise. Thank you. [facility] Refillon 01-01-2023 Refill [id number] Bertha Pulido Vipul 1945 M Date Provider Department Center 01/01/2023 TRACEY OROZCO [facility] Comprehensiv Family History Family history unknown: Yes Reason for Visit and Comments: Med Refill [[id number]] [facility] 36on 11-27-2022 36 Called to see if patient had labs for today's appointment, if patient doesn't have labs we will need to reschedule [facility] Office Visiton 2022 Follow-up visit [id number] Anne-Marie,Bertha Matthew 1945 [facility] Provider Department Center 2022 TIFF MABRY [facility] Family History Family history unknown: Yes Level of Service:91543 [place] OFFICE/OUTPATIENT ESTABLISHED MOD MDM 30-39 MIN Reason for Visit and Comments: Hypotension [407] [facility]illon 10-16-2022 Refill [id number] Bertha Pulido Vipul 1945 Provider Department Center 10/16/2022 TRACEY OROZCO [facility] Comprehensiv Family History Family history unknown: Yes Reason for Visit and Comments: Med Refill [[id number]] [facility] 36on 10-14-2022 36 I called pt he was not home. I spoke to She stated pt has not complained the past couple days. That pt will be at his appt with Liz Arreola. [facility] Follow-Upon 10-14-2022 Follow-Up [id number] Anne-MarieBertha Vipul 1945 Provider Department Center 10/14/2022 TRACEY OROZCO [facility] Comprehensiv Family History Family history unknown: Yes Level of Service:G0439 [place] PPPS, SUBSEQ VISIT (25) Reason for Visit and Comments: Hospital Follow-up [832] - -Metorprolol tartrate has not been taking for about 1 week now[facility] Rectal Pain [[id number]] [facility] 36on 10-10-2022 36 Patient is calling would like to know if he should be getting any lab work done before his appointment with you next week. Please advise [facility] Telephoneon 10-09-2022 Telephone [id number] Bertha Pulido 1945 M Date Provider Department Center 10/09/2022 166-TIFF ARREOLA [facility] Family History Family history unknown: Yes Reason for Visit and Comments: Low BP [Other] - Pt LVM stating his BP has been in the 50s for 1 wk. I tried to call pt back no answer LVM to CB with more details. [facility] 36on 10-02-2022 36 Orders placed, left detailed message on patients recorder. Needing to know if it needs to be picked up or faxed [facility] 36 Patient states he go t out of rehab on 09/25/2022 from his issues of walking . He is requesting a handicap placard and an order for a rolling walker. [facility] CBC with Auto Differentialon 09-23-2022 Absolute Eos # 0.50 High BON [facility] [employer] Absolute Immature Granulocyte 0.03 [facility] Absolute Lymph # 2.87 [facility] Absolute Holt # 0.83 [facility] Basophils (Bld) [#/Vol] 0.05 10*3/uL [facility] [employer] Basophils/100 WBC (Bld) 1 % 0 - 2 % B ON [facility] [employer] Eosinophils/100 WBC (Bld) 6 % High 1 - 4 % [facility] [employer] Hematocrit (Bld) [Volume fraction] 37.1 % Low 40.7 - 50.3 % [facility] [employer] Hemoglobin (Bld) [Mass/Vol] 12.5 g/dL Low 13.0 - 17.0 g/dL [facility] [employer] Immature granulocytes/100 WBC (Bld) 0 % 0 [facility] Interpretation and review of laboratory results Abnormal [facility] Lymphocytes/100 WBC (Bld) 33 % 24 - 43 % [facility] MCH (RBC) [Entitic mass] 32.2 pg 25.2 - 33.5 pg [facility] MCHC (RBC) [Mass/Vol] 33.7 g/dL 28.4 - 34.8 g/dL [facility] MCV (RBC) [Entitic vol] 95.6 fL 82.6 - 102.9 fL [facility] Monocytes/100 WBC (Bld) 10 % 3 - 12 % B ON [facility] NRBC Automated 0.0 0.0 per 100 WBC [facility] Platelet distribution width (Bld) [Ratio] 13.2 % 11.8 - 14.4 % [facility] Platelet mean volume (Bld) [Entitic vol] 10.3 fL 8.1 - 13.5 fL [facility] Platelets (Bld) [#/Vol] 143 10*3/uL [facility] RBC (Bld) [#/Vol] 3.88 10*6/uL Low 4.21 - 5.7 7 m/uL [facility] Segmented neutrophils/100 WBC (Bld) 51 % 36 - 65 % [facility] Segs Absolute 4.38 [facility] WBC (Bld) [#/Vol] 8.7 10*3/uL [facility] CBC with Diffon 09-23-2022 Abs. Basophil 0.05 k/uL Normal 0.00-0.20 [facility] Comment on above: Performed By: #### C DP, IPF, BMPX #### [facility] [address] [place] [address] Booking Manager: Jabari Padgett MD Abs.Imm.Granulocyte 0.03 k/uL Normal 0.00-0.30 [facility] Comment on above: Performed By: #### C DP, IPF, BMPX #### [facility] [address] [place] [address] Booking Manager: Jabari Padgett MD Abs.Neutrophil (Seg) 4.38 k/uL Normal 1.50-8.10 [facility] Comment on above: Performed By: #### C DP, IPF, BMPX #### [address] [place], [place] [id number] Booking Manager: Jabari Padgett MD Basophils/100 WBC (Bld) 1 % Normal 0-2 [facility] Comment on above: Performed By: #### C DP, IPF, BMPX #### [address] [place] [address] Booking Manager: Jabari Padgett MD Eosinophils (Bld) [#/Vol] 0.50 10*3/uL High 0.00-0.44 [facility] Comment on above: Performed By: #### C DP, IPF, BMPX #### [address] [place], [facility]83 Booking Manager: Jabari Padgett MD Eosinophils/100 WBC (Bld) 6 % High 1-4 [facility] Comment on above: Performed By: #### C DP, IPF, BMPX #### [address] [place], [facility]83 Booking Manager: Jabari Padgett MD Erythrocyte distribution width (RBC) [Ratio] 13.2 % Normal 11.8-14.4 [facility] Comment on above: Performed By: #### C DP, IPF, BMPX #### [address] [place], [place] [id number] Booking Manager: Jabari Padgett MD Hematocrit (Bld) [Volume fraction] 37.1 % Low 40.7-50.3 [facility] Comment on above: Performed By: #### C DP, IPF, BMPX #### [address] [place] [address] Booking Manager: Jabari Padgett MD Hemoglobin (Bld) [Mass/Vol] 12.5 g/dL Low 13.0-17.0 [facility] Comment on above: Performed By: #### C DP, IPF, BMPX #### [facility] [address] [place], [place] [id number] Booking Manager: Jabari Padgett MD Immature granulocytes/100 WBC (Bld) 0 % Normal 0 [facility] Comment on above: Performed By: #### C DP, IPF, BMPX #### [facility] [address] [place], [place] [id number] Booking Manager: Jabari Padgett MD Lymphocytes (Bld) [#/Vol] 2.87 10*3/uL Normal 1.10-3.70 [facility] Comment on above: Performed By: #### C DP, IPF, BMPX #### [address] [place], [place] [address] Booking Manager: Jabari Padgett MD Lymphocytes/100 WBC (Bld) 33 % Normal 24-43 [facility] Comment on above: Performed By: #### C DP, IPF, BMPX #### [address] [place], [place] [address]483 Booking Manager: Jabari Padgett MD MCH (RBC) [Entitic mass] 32.2 pg Normal 25.2-33.5 [facility] Comment on above: Performed By: #### C DP, IPF, BMPX #### [address] [place], [place] [address]183 Booking Manager: Jabari Padgett MD MCHC (RBC) [Mass/Vol] 33.7 g/dL Normal 28.4-34.8 [facility] Comment on above: Performed By: #### C DP, IPF, BMPX #### [facility] [address] [place] [address] Booking Manager: Jabari Padgett MD MCV (RBC) [Entitic vol] 95.6 fL Normal 82.6-102.9 [facility] Comment on above: Performed By: #### C DP, IPF, BMPX #### [facility] [address] [place] [address] Booking Manager: Jabari Padgett MD Monocytes (Bld) [#/Vol] 0.83 10*3/uL Normal 0.10-1.20 [facility] Comment on above: Performed By: #### C DP, IPF, BMPX #### [facility] [address] [place], [facility]83 Booking Manager: Jabari Padgett MD Monocytes/100 WBC (Bld) 10 % Normal 3-12 [facility] Comment on above: Performed By: #### C DP, IPF, BMPX #### [facility] [address] [place], [facility]83 Booking Manager: Jabari Padgett MD Neutrophil (Seg) 51 % Normal 36-65 [facility] Comment on above: Performed By: #### C DP, IPF, BMPX #### [facility] [address] [place] [address] Booking Manager: Jabari Padgett MD NRBC Automated 0.0 per 100 WBC Normal 0.0 [facility] Comment on above: Performed By: #### C DP, IPF, BMPX #### [facility] [address] [place], [facility]83 Booking Manager: Jabari Padgett MD Platelet mean volume (Bld) [Entitic vol] 10.3 fL Normal 8.1-13.5 [facility] Comment on above: Performed By: #### C DP, IPF, BMPX #### [facility] [address] [place] [address] Booking Manager: Jabari Padgett MD Platelets (Bld) [#/Vol] 143 10*3/uL Normal 138-453 [facility] Comment on above: Performed By: #### C DP, IPF, BMPX #### [facility] [address] [place], [place] [id number] Booking Manager: Jabari Padgett MD RBC (Bld) [#/Vol] 3.88 10*6/uL Low 4.21-5.77 [facility] Comment on above: Performed By: #### C DP, IPF, BMPX #### [facility] [address] [place], [place] [id number] Booking Manager: Jabari Padgett MD WBC (Bld) [#/Vol] 8.7 10*3/uL Normal 3.5-11.3 [facility] Comment on above: Performed By: #### C DP, IPF, BMPX #### [facility] [address] [place] [address] Booking Manager: Jabari Padgett MD Comp Metabolic Profon 2022 Albumin [Mass/Vol] 3.3 g/dL Low 3.5-5.2 [facility] Comment on above: Performed By: #### C DP, IPF, BMPX #### [facility] [address] [place], [place] [id number] Booking Manager: Jabari Padgett MD Albumin/Glob Ratio 1.0 Normal 1.0-2.5 [facility] Comment on above: Performed By: #### C DP, IPF, BMPX #### [facility] [address] [place], [place] [id number] Booking Manager: Jabari Padgett MD Alkaline Phos 111 U/L Normal 40-129 [facility] Comment on above: Performed By: #### C DP, IPF, BMPX #### [facility] [address] [place] [address] Booking Manager: Jabari Padgett MD ALT [Catalytic activity/Vol] 26 U/L Normal 5-41 [facility] Comment on above: Performed By: #### C DP, IPF, BMPX #### [facility] [address] [place], [place] [phone] Booking Manager: Jabari Padgett MD Anion gap [Moles/Vol] 8 mmol/L Low 9-17 [facility] Comment on above: Performed By: #### C DP, IPF, BMPX #### [facility] [address] [place], [place] [address] Booking Manager: Jabari Padgett MD AST [Catalytic activity/Vol] 19 U/L Normal <40 [facility] Comment on above: Performed By: #### C DP, IPF, BMPX #### [address] [place], [place] [address]83 Booking Manager: Jabari Padgett MD Bilirubin [Mass/Vol] 0.3 mg/dL Normal 0.3-1.2 [facility] Comment on above: Performed By: #### C DP, IPF, BMPX #### [facility] [address] [place] [address] [place], [place] [address]83 Booking Manager: Jabari Padgett MD BUN/CRE Ratio 17 Normal 9-20 [facility] Comment on above: Performed By: #### C DP, IPF, BMPX #### [address] [place], [place] [address]83 Booking Manager: Jabari Padgett MD Calcium [Mass/Vol] 8.9 mg/dL Normal 8.6-10.4 [facility] Comment on above: Performed By: #### C DP, IPF, BMPX #### [facility] [address] [place], [place] [address] Booking Manager: Jabari Padgett MD Chloride [Moles/Vol] 101 mmol/L Normal 98-107 [facility] Comment on above: Performed By: #### C DP, IPF, BMPX #### [facility] [address] [place] [address] [place] [address] Booking Manager: Jabari Padgett MD CO2 [Moles/Vol] 29 mmol/L Normal 20-31 [facility] Comment on above: Performed By: #### C DP IPF, BMPX #### [facility] [address] [place] [address] Booking Manager: Jabari Padgett MD Creatinine [Mass/Vol] 2.57 mg/dL High 0.70-1.20 [facility] Comment on above: Performed By: #### C DP IPF, BMPX #### [facility] [address] [place] [address] Booking Manager: Jabari Padgett MD GFR/1.73 sq M.predicted among non-blacks MDRD (S/P/Bld) [Vol rate/Area] 25 mL/min/{1.73_m2} Low >60 [facility] Comment on above: Result Comment: These results [...] By: #### C DEENA IPF, BMPX #### [facility] [address] [place] [address] Booking Manager: Jabari Padgett MD Glucose [Mass/Vol] 179 mg/dL High 70-99 [facility] Comment on above: Performed By: #### C DEENA IPF, BMPX #### [facility] [address] [place] [address] Booking Manager: Jabari Padgett MD Potassium [Moles/Vol] 4.2 mmol/L Normal 3.7-5.3 [facility] Comment on above: Performed By: #### C DP IPF, BMPX #### [facility] [address] [place] [address] Booking Manager: Jabari Padgett MD Protein [Mass/Vol] 6.7 g/dL Normal 6.4-8.3 [facility] Comment on above: Performed By: #### C DP, IPF, BMPX #### [facility] [address] [place] [address] Booking Manager: Jabari Padgett MD Sodium [Moles/Vol] 138 mmol/L Normal 135-144 [facility] Comment on above: Performed By: #### C DP, IPF, BMPX #### [facility] [address] [place] [address] Booking Manager: Jabari Padgett MD Urea nitrogen [Mass/Vol] 43 mg/dL High 8-23 [facility] Comment on above: Performed By: #### C DP, IPF, BMPX #### [facility] [address] [place] [address] Booking Manager: Jabari Padgett MD Comprehensive Metabolic Pane [facility] 09-23-2022 Albumin [Mass/Vol] 3.3 g/dL Low 3.5 - 5.2 g/dL [facility] Albumin/Globulin [Mass ratio] 1.0 {ratio} 1.0 - 2.5 [facility] ALP [Catalytic activity/Vol] 111 U/L 40 - 129 U/L [facility] ALT [Catalytic activity/Vol] 26 U/L 5 - 41 U/L [facility] Anion gap [Moles/Vol] 8 mmol/L Low 9 - 17 mmol/L [facility] AST [Catalytic activity/Vol] 19 U/L NINF - 40 U/L [facility] Bilirubin [Mass/Vol] 0.3 mg/dL 0.3 - 1 .2 mg/dL [facility] Calcium [Mass/Vol] 8.9 mg/dL 8.6 - 10. 4 mg/dL [facility] Chloride [Moles/Vol] 101 mmol/L 98 - 10 7 mmol/L [facility] CO2 [Moles/Vol] 29 mmol/L 20 - 31 mmol/L [facility] Creatinine [Mass/Vol] 2.57 mg/dL High 0.70 - 1.20 mg/dL [facility] GFR/1.73 sq M.predicted MDRD (S/P/Bld) [Vol rate/Area] 25 mL/min/{1.73_m2} Low - PINF [facility] Comment on above: These results are [...] 179 mg/dL High 70 - 99 mg/dL [facility] Interpretation and review of laboratory results Abnormal [facility] Potassium [Moles/Vol] 4.2 mmol/L 3.7 - 5.3 mmol/L [facility] Protein [Mass/Vol] 6.7 g/dL 6.4 - 8.3 g/dL [facility] Sodium [Moles/Vol] 138 mmol/L 135 - 144 mmol/L [facility] Urea nitrogen [Mass/Vol] 43 mg/dL High 8 - 23 mg/dL [facility] Urea nitrogen/Creatinine (Bld) [Mass ratio] 17 9 - [address] [facility] CBC with Auto Differentialon 09-16-2022 Absolute Eos # 0.23 [place] [facility] Absolute Immature Granulocyte [facility] Absolute Lymph # 2.28 [facility] Absolute Holt # 0.81 [facility] Basophils (Bld) [#/Vol] 0.04 10*3/uL [facility] Basophils/100 WBC (Bld) 1 % 0 - 2 % B [facility] Eosinophils/100 WBC (Bld) 3 % 1 - 4 % [facility] Hematocrit (Bld) [Volume fraction] 35.5 % Low 40.7 - 50.3 % [facility] Hemoglobin (Bld) [Mass/Vol] 12.5 g/dL Low 13.0 - 17.0 g/dL [facility] Immature granulocytes/100 WBC (Bld) 0 % 0 [facility] Interpretation and review of laboratory results Abnormal [facility] Lymphocytes/100 WBC (Bld) 29 % 24 - 43 % [facility] MCH (RBC) [Entitic mass] 31.7 pg 25.2 - 33.5 pg [facility] MCHC (RBC) [Mass/Vol] 35.2 g/dL High 28.4 - 34.8 g/dL [facility] MCV (RBC) [Entitic vol] 90.1 fL 82.6 - 102.9 fL [facility] Monocytes/100 WBC (Bld) 10 % 3 - 12 % [facility] NRBC Automated 0.0 0.0 per 100 WBC [facility] Platelet distribution width (Bld) [Ratio] 12.9 % 11.8 - 14.4 % [facility] Platelet mean volume (Bld) [Entitic vol] 10.3 fL 8.1 - 13.5 fL [facility] Platelets (Bld) [#/Vol] 160 10*3/uL [facility] RBC (Bld) [#/Vol] 3.94 10*6/uL Low 4.21 - 5.7 7 m/uL [facility] Segmented neutrophils/100 WBC (Bld) 57 % 36 - 65 % [facility] Segs Absolute 4.39 [facility] WBC (Bld) [#/Vol] 7.8 10*3/uL [facility] CBC with Diffon 09-16-2022 Abs. Basophil 0.04 k/uL Normal 0.00-0.20 [facility] Comment on above: Performed By: #### C DP, CP #### [facility] [address] [place] [address] Booking Manager: Jabari Padgett MD Abs.Imm.Granulocyte <0.03 Normal 0.00-0.30 [facility] Comment on above: Performed By: #### C DP, CP #### [address] [place], [place] [address] Booking Manager: Jabari Padgett MD Abs.Neutrophil (Seg) 4.39 k/uL Normal 1.50-8.10 [facility] Comment on above: Performed By: #### C DP, CP #### [address] [place] [address] Booking Manager: Jabari Padgett MD Basophils/100 WBC (Bld) 1 % Normal 0-2 [facility] Comment on above: Performed By: #### C DP, CP #### [address] [place] [id number] Booking Manager: Jabari Padgett MD Eosinophils (Bld) [#/Vol] 0.23 10*3/uL Normal 0.00-0.44 [facility] Comment on above: Performed By: #### C DP, CP #### [address] [place] [address] Booking Manager: Jabari Padgett MD Eosinophils/100 WBC (Bld) 3 % Normal 1-4 [facility] Comment on above: Performed By: #### C DP, CP #### [address] [place], [facility]83 Booking Manager: Jabari Padgett MD Erythrocyte distribution width (RBC) [Ratio] 12.9 % Normal 11.8-14.4 [facility] Comment on above: Performed By: #### C DP, CP #### [address] [place] [id number] Booking Manager: Jabari Padgett MD Hematocrit (Bld) [Volume fraction] 35.5 % Low 40.7-50.3 [facility] Comment on above: Performed By: #### C DP, CP #### [facility] [address] [place], [place] [address] Booking Manager: Jabari Padgett MD Hemoglobin (Bld) [Mass/Vol] 12.5 g/dL Low 13.0-17.0 [facility] Comment on above: Performed By: #### C DP, CP #### [facility] [address] [place], [place] [id number] Booking Manager: Jabari Padgett MD Immature granulocytes/100 WBC (Bld) 0 % Normal 0 [facility] Comment on above: Performed By: #### C DP, CP #### [address] [place], [facility]83 Booking Manager: Jabari Padgett MD Lymphocytes (Bld) [#/Vol] 2.28 10*3/uL Normal 1.10-3.70 [facility] Comment on above: Performed By: #### C DP, CP #### [address] [place], [facility]83 Booking Manager: Jabari Padgett MD Lymphocytes/100 WBC (Bld) 29 % Normal 24-43 [facility] Comment on above: Performed By: #### C DP, CP #### [address] [place], [facility]83 Booking Manager: Jabari Padgett MD MCH (RBC) [Entitic mass] 31.7 pg Normal 25.2-33.5 [facility] Comment on above: Performed By: #### C DP, CP #### [address] [place], [place] [id number] Booking Manager: Jabari Padgett MD MCHC (RBC) [Mass/Vol] 35.2 g/dL High 28.4-34.8 [facility] Comment on above: Performed By: #### C DP, CP #### [address] [place], [place] [id number] Booking Manager: Jabari Padgett MD MCV (RBC) [Entitic vol] 90.1 fL Normal 82.6-102.9 [facility] Comment on above: Performed By: #### C DP, CP #### [address] [place], [place] 469[address]83 Booking Manager: Jabari Padgett MD Monocytes (Bld) [#/Vol] 0.81 10*3/uL Normal 0.10-1.20 [facility] Comment on above: Performed By: #### C DP, CP #### [address] [place], [place] 4[address]83 Booking Manager: Jabari Padgett MD Monocytes/100 WBC (Bld) 10 % Normal 3-12 [facility] Comment on above: Performed By: #### C DP, CP #### [address] [place], [facility]83 Booking Manager: Jabari Padgett MD Neutrophil (Seg) 57 % Normal 36-65 [facility] Comment on above: Performed By: #### C DP, CP #### [address] [place], [place] [id number] Booking Manager: Jabari Padgett MD NRBC Automated 0.0 per 100 WBC Normal 0.0 [facility] Comment on above: Performed By: #### C DP, CP #### [address] [place], [facility]83 Booking Manager: Jabari Padgett MD Platelet mean volume (Bld) [Entitic vol] 10.3 fL Normal 8.1-13.5 [facility] Comment on above: Performed By: #### C DP, CP #### [address] [place], [place] [id number] Booking Manager: Jabari Padgett MD Platelets (Bld) [#/Vol] 160 10*3/uL Normal 138-453 [facility] Comment on above: Performed By: #### C DP, CP #### [facility] [address] [place], [place] [id number] Booking Manager: Jabari Padgett MD RBC (Bld) [#/Vol] 3.94 10*6/uL Low 4.21-5.77 [facility] Comment on above: Performed By: #### C DP, CP #### [facility] [address] [place], [place] [id number] Booking Manager: Jabari Padgett MD WBC (Bld) [#/Vol] 7.8 10*3/uL Normal 3.5-11.3 [facility] Comment on above: Performed By: #### C DP, CP #### [facility] [address] [place], [place] [id number] Booking Manager: Jabari Padgett MD Comp Metabolic Profon 2022 Albumin [Mass/Vol] 3.1 g/dL Low 3.5-5.2 [facility] Comment on above: Performed By: #### C DP, CP #### [facility] [address] [place] [address] Booking Manager: Jabari Padgett MD Albumin/Glob Ratio 0.9 Low 1.0-2.5 [facility] Comment on above: Performed By: #### C DP, CP #### [facility] [address] [place], [place] [id number] Booking Manager: Jabari Padgett MD Alkaline Phos 120 U/L Normal 40-129 [facility] Comment on above: Performed By: #### C DP, CP #### [facility] [address] [place] [address] Booking Manager: Jabari Padgett MD ALT [Catalytic activity/Vol] 27 U/L Normal 5-41 [facility] Comment on above: Performed By: #### C DP, CP #### [facility] [address] [place], [place] [phone] Booking Manager: Jabari Padgett MD Anion gap [Moles/Vol] 9 mmol/L Normal 9-17 [facility] Comment on above: Performed By: #### C DP, CP #### [facility] [address] [place], [place] [id number] Booking Manager: Jabari Padgett MD AST [Catalytic activity/Vol] 21 U/L Normal <40 [facility] Comment on above: Performed By: #### C DP, CP #### [facility] [address] [place], [place] [id number] Booking Manager: Jabari Padgett MD Bilirubin [Mass/Vol] 0.3 mg/dL Normal 0.3-1.2 [facility] Comment on above: Performed By: #### C DP, CP #### [facility] [address] [place], [place] 6895383 Booking Manager: Jabari Padgett MD BUN/CRE Ratio 19 Normal 9-20 [facility] Comment on above: Performed By: #### C DP, CP #### [address] [place], [place] 616[address]83 Booking Manager: Jabari Padgett MD Calcium [Mass/Vol] 8.8 mg/dL Normal 8.6-10.4 [facility] Comment on above: Performed By: #### C DP, CP #### [facility] [address] [place], [place] [id number] Booking Manager: Jabari Padgett MD Chloride [Moles/Vol] 101 mmol/L Normal 98-107 [facility] Comment on above: Performed By: #### C DP, CP #### [facility] [address] [place], [place] [id number] Booking Manager: Jabari Padgett MD CO2 [Moles/Vol] 27 mmol/L Normal 20-31 [facility] Comment on above: Performed By: #### C DP, CP #### [facility] [address] [place] [address] Booking Manager: Jabari Padgett MD Creatinine [Mass/Vol] 2.52 mg/dL High 0.70-1.20 [facility] Comment on above: Performed By: #### C DP, CP #### [facility] [address] [place] [address] Booking Manager: Jabari Padgett MD GFR/1.73 sq M.predicted among non-blacks MDRD (S/P/Bld) [Vol rate/Area] 26 mL/min/{1.73_m2} Low >60 [facility] Comment on above: Result Comment: These results [...] Performed By: #### C DP, CP #### [address] [place] [address] Booking Manager: Jabari Padgett MD Glucose [Mass/Vol] 116 mg/dL High 70-99 [facility] Comment on above: Performed By: #### C DP, CP #### [facility] [address] [place] [address] Booking Manager: Jabari Padgett MD Potassium [Moles/Vol] 3.9 mmol/L Normal 3.7-5.3 [facility] Comment on above: Performed By: #### C DP, CP #### [address] [place] [address] Booking Manager: Jabari Padgett MD Protein [Mass/Vol] 6.6 g/dL Normal 6.4-8.3 [facility] Comment on above: Performed By: #### C DP, CP #### [facility] [address] [place] [address] Booking Manager: Jabari Padgett MD Sodium [Moles/Vol] 137 mmol/L Normal 135-144 [facility] Comment on above: Performed By: #### C DP, CP #### [facility] [address] [place] [address] Booking Manager: Jabari Padgett MD Urea nitrogen [Mass/Vol] 48 mg/dL High 8-23 [facility] Comment on above: Performed By: #### C DEENA, CP #### [facility] [address] [place] [address] Booking Manager: Jabari Padgett MD Comprehensive Metabolic Pane [facility] 09-16-2022 Albumin [Mass/Vol] 3.1 g/dL Low 3.5 - 5.2 g/dL [facility] Albumin/Globulin [Mass ratio] 0.9 {ratio} Low 1.0 - 2.5 [facility] ALP [Catalytic activity/Vol] 120 U/L 40 - 129 U/L [facility] ALT [Catalytic activity/Vol] 27 U/L 5 - 41 U/L [facility] Anion gap [Moles/Vol] 9 mmol/L 9 - 17 mmol/L [facility] AST [Catalytic activity/Vol] 21 U/L NINF - 40 U/L [facility] Bilirubin [Mass/Vol] 0.3 mg/dL 0.3 - 1 .2 mg/dL [facility] Calcium [Mass/Vol] 8.8 mg/dL 8.6 - 10. 4 mg/dL [facility] Chloride [Moles/Vol] 101 mmol/L 98 - 10 7 mmol/L [facility] CO2 [Moles/Vol] 27 mmol/L 20 - 31 mmol/L [facility] Creatinine [Mass/Vol] 2.52 mg/dL High 0.70 - 1.20 mg/dL [facility] GFR/1.73 sq M.predicted MDRD (S/P/Bld) [Vol rate/Area] 26 mL/min/{1.73_m2} Low - PINF [facility] Comment on above: These results are [...] 116 mg/dL High 70 - 99 mg/dL [facility] Interpretation and review of laboratory results Abnormal [facility] Potassium [Moles/Vol] 3.9 mmol/L 3.7 - 5.3 mmol/L [facility] Protein [Mass/Vol] 6.6 g/dL 6.4 - 8.3 g/dL [facility] Sodium [Moles/Vol] 137 mmol/L 135 - 144 mmol/L [facility] Urea nitrogen [Mass/Vol] 48 mg/dL High 8 - 23 mg/dL [facility] Urea nitrogen/Creatinine (Bld) [Mass ratio] 19 9 - [address] [facility] CBC with Auto Differentialon 09-09-2022 Absolute Eos # 0.12 [place] [facility] Absolute Immature Granulocyte 0.06 [facility] Absolute Lymph # 1.97 [facility] Absolute Holt # 0.68 [facility] RS [facility] Basophils Absolute [facility] COURS [facility] Basophils/100 WBC (Bld) 0 % 0 - 2 % [facility] Eosinophils/100 WBC (Bld) 1 % 1 - 4 % [facility] Hematocrit (Bld) [Volume fraction] 38.0 % Low 40.7 - 50.3 % [facility] Hemoglobin (Bld) [Mass/Vol] 12.8 g/dL Low 13.0 - 17.0 g/dL [facility] Immature granulocytes/100 WBC (Bld) 1 % High 0 [facility] Interpretation and review of laboratory results Abnormal [facility] Lymphocytes/100 WBC (Bld) 22 % Low 24 - 43 % [facility] MCH (RBC) [Entitic mass] 30.7 pg 25.2 - 33.5 pg [facility] MCHC (RBC) [Mass/Vol] 33.7 g/dL 28.4 - 34.8 g/dL [facility] MCV (RBC) [Entitic vol] 91.1 fL 82.6 - 102.9 fL [facility] Monocytes/100 WBC (Bld) 8 % 3 - 12 % [facility] NRBC Automated 0.0 0.0 per 100 WBC [facility] Platelet distribution width (Bld) [Ratio] 12.9 % 11.8 - 14.4 % [facility] Platelet mean volume (Bld) [Entitic vol] 10.5 fL 8.1 - 13.5 fL [facility] Platelets (Bld) [#/Vol] 164 10*3/uL [facility] RBC (Bld) [#/Vol] 4.17 10*6/uL Low 4.21 - 5.7 7 m/uL [facility] Segmented neutrophils/100 WBC (Bld) 68 % High 36 - 65 % [facility] Segs Absolute 6.11 [facility] WBC (Bld) [#/Vol] 9.0 10*3/uL [facility] CBC with Diffon 09-09-2022 Abs. Basophil <0.03 Normal 0.00-0.20 [facility] Comment on above: Performed By: #### C DP, CP #### [facility] [address] [place] [address] Booking Manager: Jabari Padgett MD Abs.Imm.Granulocyte 0.06 k/uL Normal 0.00-0.30 [facility] Comment on above: Performed By: #### C DP, CP #### [facility] [address] [place] [address] Booking Manager: Jabari Padgett MD Abs.Neutrophil (Seg) 6.11 k/uL Normal 1.50-8.10 [facility] Comment on above: Performed By: #### C DP, CP #### [address] [place], [facility]83 Booking Manager: Jabari Padgett MD Basophils/100 WBC (Bld) 0 % Normal 0-2 [facility] Comment on above: Performed By: #### C DP, CP #### [address] [place], [place] [address] Booking Manager: Jabari Padgett MD Eosinophils (Bld) [#/Vol] 0.12 10*3/uL Normal 0.00-0.44 [facility] Comment on above: Performed By: #### C DP, CP #### [address] [place], [facility]83 Booking Manager: Jabari Padgett MD Eosinophils/100 WBC (Bld) 1 % Normal 1-4 [facility] Comment on above: Performed By: #### C DP, CP #### [address] [place], [facility]83 Booking Manager: Jabari Padgett MD Erythrocyte distribution width (RBC) [Ratio] 12.9 % Normal 11.8-14.4 [facility] Comment on above: Performed By: #### C DP, CP #### [address] [place], [facility]83 Booking Manager: Jabari Padgett MD Hematocrit (Bld) [Volume fraction] 38.0 % Low 40.7-50.3 [facility] Comment on above: Performed By: #### C DP, CP #### [address] [place], [facility]83 Booking Manager: Jabari Padgett MD Hemoglobin (Bld) [Mass/Vol] 12.8 g/dL Low 13.0-17.0 [facility] Comment on above: Performed By: #### C DP, CP #### [facility] [address] [place], [place] [id number] Booking Manager: Jabari Padgett MD Immature granulocytes/100 WBC (Bld) 1 % High 0 [facility] Comment on above: Performed By: #### C DP, CP #### [facility] [address] [place], [facility]83 Booking Manager: Jabari Padgett MD Lymphocytes (Bld) [#/Vol] 1.97 10*3/uL Normal 1.10-3.70 [facility] Comment on above: Performed By: #### C DP, CP #### [address] [place], [facility]83 Booking Manager: Jabari Padgett MD Lymphocytes/100 WBC (Bld) 22 % Low 24-43 [facility] Comment on above: Performed By: #### C DP, CP #### [address] [place], [facility]83 Booking Manager: Jabari Padgett MD MCH (RBC) [Entitic mass] 30.7 pg Normal 25.2-33.5 [facility] Comment on above: Performed By: #### C DP, CP #### [address] [place], [facility]83 Booking Manager: Jabari Padgett MD MCHC (RBC) [Mass/Vol] 33.7 g/dL Normal 28.4-34.8 [facility] Comment on above: Performed By: #### C DP, CP #### [address] [place] [address] Booking Manager: Jabari Padgett MD MCV (RBC) [Entitic vol] 91.1 fL Normal 82.6-102.9 [facility] Comment on above: Performed By: #### C DP, CP #### [address] [place], [place] [address]83 Booking Manager: Jabari Padgett MD Monocytes (Bld) [#/Vol] 0.68 10*3/uL Normal 0.10-1.20 [facility] Comment on above: Performed By: #### C DP, CP #### [facility] [address] [place], [place] [id number] Booking Manager: Jabari Padgett MD Monocytes/100 WBC (Bld) 8 % Normal 3-12 [facility] Comment on above: Performed By: #### C DP, CP #### [address] [place], [place] [address] Booking Manager: Jabari Padgett MD Neutrophil (Seg) 68 % High 36-65 [facility] Comment on above: Performed By: #### C DP, CP #### [address] [place], [facility]83 Booking Manager: Jabari Padgett MD NRBC Automated 0.0 per 100 WBC Normal 0.0 [facility] Comment on above: Performed By: #### C DP, CP #### [address] [place], [facility]83 Booking Manager: Jabari Padgett MD Platelet mean volume (Bld) [Entitic vol] 10.5 fL Normal 8.1-13.5 [facility] Comment on above: Performed By: #### C DP, CP #### [address] [place], [facility]83 Booking Manager: Jabari Padgett MD Platelets (Bld) [#/Vol] 164 10*3/uL Normal 138-453 [facility] Comment on above: Performed By: #### C DP, CP #### [address] [place], [place] [id number] Booking Manager: Jabari Padgett MD RBC (Bld) [#/Vol] 4.17 10*6/uL Low 4.21-5.77 [facility] Comment on above: Performed By: #### C DP, CP #### [facility] [address] [place] [address] Booking Manager: Jabari Padgett MD WBC (Bld) [#/Vol] 9.0 10*3/uL Normal 3.5-11.3 [facility] Comment on above: Performed By: #### C DP, CP #### [facility] [address] [place] [address] Booking Manager: Jabari Padgett MD Comp Metabolic Profon 2022 Albumin [Mass/Vol] 3.1 g/dL Low 3.5-5.2 [facility] Comment on above: Performed By: #### C DP, CP #### [address] [place], [place] 1726183 Booking Manager: Jabari Padgett MD Albumin/Glob Ratio 0.8 Low 1.0-2.5 [facility] Comment on above: Performed By: #### C DP, CP #### [address] [place], [place] [address]83 Booking Manager: Jabari Padgett MD Alkaline Phos 136 U/L High 40-129 [facility] Comment on above: Performed By: #### C DP, CP #### [facility] [address] [place], [place] [id number] Booking Manager: Jabari Padgett MD ALT [Catalytic activity/Vol] 34 U/L Normal 5-41 [facility] Comment on above: Performed By: #### C DP, CP #### [facility] [address] [place] [address] Booking Manager: Jabari Padgett MD Anion gap [Moles/Vol] 9 mmol/L Normal 9-17 [facility] Comment on above: Performed By: #### C DP, CP #### [facility] [address] [place], [place] 677[address]83 Booking Manager: Jabari Padgett MD AST [Catalytic activity/Vol] 24 U/L Normal <40 [facility] Comment on above: Performed By: #### C DP, CP #### [facility] [address] [place], [place] [address]878[address] Booking Manager: Jabari Padgett MD Bilirubin [Mass/Vol] 0.4 mg/dL Normal 0.3-1.2 [facility] Comment on above: Performed By: #### C DP, CP #### [facility] [address] [place], [place] [id number] Booking Manager: Jabari Padgett MD BUN/CRE Ratio 23 High 9-20 [facility] Comment on above: Performed By: #### C DP, CP #### [facility] [address] [place], [place] [address]118183 Booking Manager: Jabari Padgett MD Calcium [Mass/Vol] 9.1 mg/dL Normal 8.6-10.4 [facility] Comment on above: Performed By: #### C DP, CP #### [facility] [address] [place], [place] [id number] Booking Manager: Jabari Padgett MD Chloride [Moles/Vol] 105 mmol/L Normal 98-107 [facility] Comment on above: Performed By: #### C DP, CP #### [facility] [address] [place], [place] 1252383 Booking Manager: Jabari Padgett MD CO2 [Moles/Vol] 25 mmol/L Normal 20-31 [facility] Comment on above: Performed By: #### C DP, CP #### [facility] [address] [place], [place] [id number] Booking Manager: Jabari Padgett MD Creatinine [Mass/Vol] 2.78 mg/dL High 0.70-1.20 [facility] Comment on above: Performed By: #### C DP, CP #### [address] [place] [address] Booking Manager: Jabari Padgett MD GFR/1.73 sq M.predicted among non-blacks MDRD (S/P/Bld) [Vol rate/Area] 23 mL/min/{1.73_m2} Low >60 [facility] Comment on above: Result Comment: These results [...] Performed By: #### C DP, CP #### [facility] [address] [place] [address] [place] [address] Booking Manager: Jabari Padgett MD Glucose [Mass/Vol] 175 mg/dL High 70-99 [facility] Comment on above: Performed By: #### C DP, CP #### [address] [place] [address] Booking Manager: Jabari Padgett MD Potassium [Moles/Vol] 4.5 mmol/L Normal 3.7-5.3 [facility] Comment on above: Performed By: #### C DP, CP #### [address] [place] [address] Booking Manager: Jabari Padgett MD Protein [Mass/Vol] 6.8 g/dL Normal 6.4-8.3 [facility] Comment on above: Performed By: #### C DP, CP #### [address] [place] [address] Booking Manager: Jabari Padgett MD Sodium [Moles/Vol] 139 mmol/L Normal 135-144 [facility] Comment on above: Performed By: #### C DP, CP #### [facility] [address] [place] [address] Booking Manager: Jabari Padgett MD Urea nitrogen [Mass/Vol] 65 mg/dL High 8-23 [facility] Comment on above: Performed By: #### C DP, CP #### [facility] [address] [place] [address] Booking Manager: Jabari Padgett MD Comprehensive Metabolic Pane [facility] 09-09-2022 Albumin [Mass/Vol] 3.1 g/dL Low 3.5 - 5.2 g/dL [facility] Albumin/Globulin [Mass ratio] 0.8 {ratio} Low 1.0 - 2.5 [facility] ALP [Catalytic activity/Vol] 136 U/L High 40 - 129 U/L [facility] ALT [Catalytic activity/Vol] 34 U/L 5 - 41 U/L [facility] Anion gap [Moles/Vol] 9 mmol/L 9 - 17 mmol/L [facility] AST [Catalytic activity/Vol] 24 U/L NINF - 40 U/L [facility] Bilirubin [Mass/Vol] 0.4 mg/dL 0.3 - 1 .2 mg/dL [facility] Calcium [Mass/Vol] 9.1 mg/dL 8.6 - 10. 4 mg/dL [facility] Chloride [Moles/Vol] 105 mmol/L 98 - 10 7 mmol/L [facility] CO2 [Moles/Vol] 25 mmol/L 20 - 31 mmol/L [facility] Creatinine [Mass/Vol] 2.78 mg/dL High 0.70 - 1.20 mg/dL [facility] GFR/1.73 sq M.predicted MDRD (S/P/Bld) [Vol rate/Area] 23 mL/min/{1.73_m2} Low - PINF [facility] Comment on above: These results are [...] 175 mg/dL High 70 - 99 mg/dL [facility] Interpretation and review of laboratory results Abnormal [facility] Potassium [Moles/Vol] 4.5 mmol/L 3.7 - 5.3 mmol/L [facility] Protein [Mass/Vol] 6.8 g/dL 6.4 - 8.3 g/dL [facility] Sodium [Moles/Vol] 139 mmol/L 135 - 144 mmol/L [facility] Urea nitrogen [Mass/Vol] 65 mg/dL High 8 - 23 mg/dL [facility] Urea nitrogen/Creatinine (Bld) [Mass ratio] 23 High 9 - [address] [facility] Basic Metab w/rfx MGon 08-31 Anion gap [Moles/Vol] 7 mmol/L Low 9-17 [facility] Comment on above: Performed By: #### C AMBERLY SHAFFER BMPX #### [facility] [address] [place] [address] [place] [address] Booking Manager: Jabari Padgett MD BUN/CRE Ratio 18 Normal 9-20 [facility] Comment on above: Performed By: #### C AMBERLY SHAFFER BMPX #### [facility] [address] [place] [address] Booking Manager: Jabari Padgett MD Calcium [Mass/Vol] 8.8 mg/dL Normal 8.6-10.4 [facility] Comment on above: Performed By: #### C AMBERLY SHAFFER BMPX #### [facility] [address] [place] [address] Booking Manager: Jabari Padgett MD Chloride [Moles/Vol] 95 mmol/L Low 98-107 [facility] Comment on above: Performed By: #### C AMBERLY SHAFFER, BMPX #### [facility] [address] [place] [address] Booking Manager: Jabari Padgett MD CO2 [Moles/Vol] 32 mmol/L High 20-31 [facility] Comment on above: Performed By: #### C AMBERLY SHAFFER, BMPX #### [facility] [address] [place] [address] Booking Manager: Jabari Padgett MD Creatinine [Mass/Vol] 2.23 mg/dL High 0.70-1.20 [facility] Comment on above: Performed By: #### C AMBERLY SHAFFER, BMPX #### [facility] [address] [place] [address] Booking Manager: Jabari Padgett MD GFR/1.73 sq M.predicted among non-blacks MDRD (S/P/Bld) [Vol rate/Area] 30 mL/min/{1.73_m2} Low >60 [facility] Comment on above: Result Comment: These results [...] By: #### C AMBERLY SHAFFER, BMPX #### [facility] [address] [place] [address] Booking Manager: Jabari Padgett MD Glucose [Mass/Vol] 221 mg/dL High 70-99 [facility] Comment on above: Performed By: #### C DEENA IPF, BMPX #### [facility] [address] [place], [place] [id number] Booking Manager: Jabari Padgett MD Potassium [Moles/Vol] 4.2 mmol/L Normal 3.7-5.3 [facility] Comment on above: Performed By: #### C DP, IPF, BMPX #### [facility] [address] [place] [address] [place], [place] [address] Booking Manager: Jabari Padgett MD Sodium [Moles/Vol] 134 mmol/L Low 135-144 [facility] Comment on above: Performed By: #### C DP, IPF, BMPX #### [facility] [address] [place], [place] [id number] Booking Manager: Jabari Padgett MD Urea nitrogen [Mass/Vol] 41 mg/dL High 8-23 [facility] Comment on above: Performed By: #### C DP, IPF, BMPX #### [address] [place], [place] 9233783 Booking Manager: Jabari Padgett MD CBC with Diffon 08-31-2022 Abs. Basophil 0.03 k/uL Normal 0.00-0.20 [facility] Comment on above: Performed By: #### C DP, IPF, BMPX #### [address] [place], [place] 4231583 Booking Manager: Jabari Padgett MD Abs.Imm.Granulocyte 0.03 k/uL Normal 0.00-0.30 [facility] Comment on above: Performed By: #### C DP, IPF, BMPX #### [address] [place], [place] 5684083 Booking Manager: Jabari Padgett MD Abs.Neutrophil (Seg) 4.71 k/uL Normal 1.50-8.10 [facility] Comment on above: Performed By: #### C DP, IPF, BMPX #### [facility] [address] [place], [place] [id number] Booking Manager: Jabari Padgett MD Basophils/100 WBC (Bld) 0 % Normal 0-2 [facility] Comment on above: Performed By: #### C DP, IPF, BMPX #### [facility] [address] [place], [place] 7116283 Booking Manager: Jabari Padgett MD Eosinophils (Bld) [#/Vol] 0.11 10*3/uL Normal 0.00-0.44 [facility] Comment on above: Performed By: #### C DP, IPF, BMPX #### [facility] [address] [place] [address] Booking Manager: Jabari Padgett MD Eosinophils/100 WBC (Bld) 2 % Normal 1-4 [facility] Comment on above: Performed By: #### C DP, IPF, BMPX #### [facility] [address] [place], [place] 1092583 Booking Manager: Jabari Padgett MD Erythrocyte distribution width (RBC) [Ratio] 12.9 % Normal 11.8-14.4 [facility] Comment on above: Performed By: #### C DP, IPF, BMPX #### [facility] [address] [place], [place] [id number] Booking Manager: Jabari Padgett MD Hematocrit (Bld) [Volume fraction] 37.8 % Low 40.7-50.3 [facility] Comment on above: Performed By: #### C DP, IPF, BMPX #### [facility] [address] [place], [facility]83 Booking Manager: Jabari Padgett MD Hemoglobin (Bld) [Mass/Vol] 13.1 g/dL Normal 13.0-17.0 [facility] Comment on above: Performed By: #### C DP, IPF, BMPX #### [facility] [address] [place], [place] 7898183 Booking Manager: Jabari Padgett MD Immature granulocytes/100 WBC (Bld) 0 % Normal 0 [facility] Comment on above: Performed By: #### C DP, IPF, BMPX #### [facility] [address] [place], [place] [id number] Booking Manager: Jabari Padgett MD Lymphocytes (Bld) [#/Vol] 1.59 10*3/uL Normal 1.10-3.70 [facility] Comment on above: Performed By: #### C DP, IPF, BMPX #### [facility] [address] [place], [place] 7513283 Booking Manager: Jabari Padgett MD Lymphocytes/100 WBC (Bld) 22 % Low 24-43 [facility] Comment on above: Performed By: #### C DP, IPF, BMPX #### [facility] [address] [place] 7758883 Booking Manager: Jabari Padgett MD MCH (RBC) [Entitic mass] 31.3 pg Normal 25.2-33.5 [facility] Comment on above: Performed By: #### C DP, IPF, BMPX #### [address] [place], [place] 9560383 Booking Manager: Jabari Padgett MD MCHC (RBC) [Mass/Vol] 34.7 g/dL Normal 28.4-34.8 [facility] Comment on above: Performed By: #### C DP, IPF, BMPX #### [address] [place], [place] 0893383 Booking Manager: Jabari Padgett MD MCV (RBC) [Entitic vol] 90.2 fL Normal 82.6-102.9 [facility] Comment on above: Performed By: #### C DP, IPF, BMPX #### [facility] [address] [place], [place] 0591383 Booking Manager: Jabari Padgett MD Monocytes (Bld) [#/Vol] 0.73 10*3/uL Normal 0.10-1.20 [facility] Comment on above: Performed By: #### C DP, IPF, BMPX #### [facility] [address] [place], [place] [id number] Booking Manager: Jabari Padgett MD Monocytes/100 WBC (Bld) 10 % Normal 3-12 [facility] Comment on above: Performed By: #### C DP, IPF, BMPX #### [facility] [address] [place], [place] 2564783 Booking Manager: Jabari Padgett MD Neutrophil (Seg) 66 % High 36-65 [facility] Comment on above: Performed By: #### C DP, IPF, BMPX #### [address] [place], [place] 9856083 Booking Manager: Jabari Padgett MD NRBC Automated 0.0 per 100 WBC Normal 0.0 [facility] Comment on above: Performed By: #### C DP, IPF, BMPX #### [address] [place], [place] 5920783 Booking Manager: Jabari Padgett MD Platelet Count See Reflexed IPF Result Normal 138-453 [facility] Comment on above: Performed By: #### C DP, IPF, BMPX #### [address] [place], [place] 3775983 Booking Manager: Jabari Padgett MD RBC (Bld) [#/Vol] 4.19 10*6/uL Low 4.21-5.77 [facility] Comment on above: Performed By: #### C DP, IPF, BMPX #### [address] [place], [place] 2990783 Booking Manager: Jabari Padgett MD WBC (Bld) [#/Vol] 7.2 10*3/uL Normal 3.5-11.3 [facility] Comment on above: Performed By: #### C DP, IPF, BMPX #### [address] [place], [place] 8837883 Booking Manager: Jabari Padgett MD PLT, Immature Fract.on 08-31 Platelet, Fluoresc. 124 k/uL Low 138-453 [facility] Comment on above: Performed By: #### C DP, IPF, BMPX #### [facility] [address] [place], [place] 1347383 Booking Manager: Jabari Padgett MD PLT, Immature Fract. 3.3 % Normal 1.1-10.3 [facility] Comment on above: Performed By: #### C DP, IPF, BMPX #### [facility] [address] [place] 1932583 Booking Manager: Jabari Padgett MD Basic Metab w/rfx MGon 08-30 Anion gap [Moles/Vol] 9 mmol/L Normal 9-17 [facility] Comment on above: Performed By: #### C DP, BMPX, IPF #### [address] [place], [place] 7441983 Booking Manager: Jabari Padgett MD BUN/CRE Ratio 17 Normal 9-20 [facility] Comment on above: Performed By: #### C DP, BMPX, IPF #### [address] [place], [place] 5734783 Booking Manager: Jabari Padgett MD Calcium [Mass/Vol] 8.5 mg/dL Low 8.6-10.4 [facility] Comment on above: Performed By: #### C DP, BMPX, IPF #### [facility] [address] [place] [address] Booking Manager: Jabari Padgett MD Chloride [Moles/Vol] 96 mmol/L Low 98-107 [facility] Comment on above: Performed By: #### C DP, BMPX, IPF #### [facility] [address] [place] [address] Booking Manager: Jabari Padgett MD CO2 [Moles/Vol] 29 mmol/L Normal 20-31 [facility] Comment on above: Performed By: #### C DP, BMPX, IPF #### [facility] [address] [place] [address] Booking Manager: Jabari Padgett MD Creatinine [Mass/Vol] 2.29 mg/dL High 0.70-1.20 [facility] Comment on above: Performed By: #### C DP, BMPX, IPF #### [facility] [address] [place] [address] Booking Manager: Jabari Padgett MD GFR/1.73 sq M.predicted among non-blacks MDRD (S/P/Bld) [Vol rate/Area] 29 mL/min/{1.73_m2} Low >60 [facility] Comment on above: Result Comment: These results [...] By: #### C DP, BMPX, IPF #### [address] [place] [address] Booking Manager: Jabari Padgett MD Glucose [Mass/Vol] 244 mg/dL High 70-99 [facility] Comment on above: Performed By: #### C DP, BMPX, IPF #### [facility] [address] [place] [address] Booking Manager: Jabari Padgett MD Potassium [Moles/Vol] 4.3 mmol/L Normal 3.7-5.3 [facility] Comment on above: Performed By: #### C DP, BMPX, IPF #### [facility] [address] [place] [id number] Booking Manager: Jabari Padgett MD Sodium [Moles/Vol] 134 mmol/L Low 135-144 [facility] Comment on above: Performed By: #### C DP, BMPX, IPF #### [facility] [address] [place], [place] 6917483 Booking Manager: Jabari Padgett MD Urea nitrogen [Mass/Vol] 40 mg/dL High 8-23 [facility] Comment on above: Performed By: #### C DP, BMPX, IPF #### [facility] [address] [place], [place] 426[address]83 Booking Manager: Jabari Padgett MD CBC with Diffon 08-30-2022 Abs. Basophil <0.03 Normal 0.00-0.20 [facility] Comment on above: Performed By: #### C DP, BMPX, IPF #### [facility] [address] [place], [place] 7877183 Booking Manager: Jabari Padgett MD Abs.Imm.Granulocyte 0.04 k/uL Normal 0.00-0.30 [facility] Comment on above: Performed By: #### C DP, BMPX, IPF #### [facility] [address] [place], [place] 7347383 Booking Manager: Jabari Padgett MD Abs.Neutrophil (Seg) 5.56 k/uL Normal 1.50-8.10 [facility] Comment on above: Performed By: #### C DP, BMPX, IPF #### [facility] [address] [place], [place] 6305683 Booking Manager: Jabari Padgett MD Basophils/100 WBC (Bld) 0 % Normal 0-2 [facility] Comment on above: Performed By: #### C DP, BMPX, IPF #### [facility] [address] [place], [place] 6162483 Booking Manager: Jabari Padgett MD Eosinophils (Bld) [#/Vol] 0.06 10*3/uL Normal 0.00-0.44 [facility] Comment on above: Performed By: #### C DP, BMPX, IPF #### [facility] [address] [place], [place] 6768783 Booking Manager: Jabari Padgett MD Eosinophils/100 WBC (Bld) 1 % Normal 1-4 [facility] Comment on above: Performed By: #### C DP, BMPX, IPF #### [facility] [address] [place] [address] Booking Manager: Jabari Padgett MD Erythrocyte distribution width (RBC) [Ratio] 12.7 % Normal 11.8-14.4 [facility] Comment on above: Performed By: #### C DP, BMPX, IPF #### [facility] [address] [place] [address] Dr[place], [place] 4585083 Booking Manager: Jabari Padgett MD Hematocrit (Bld) [Volume fraction] 36.2 % Low 40.7-50.3 [facility] Comment on above: Performed By: #### C DP, BMPX, IPF #### [address] [place], [place] 8896383 Booking Manager: Jabari Padgett MD Hemoglobin (Bld) [Mass/Vol] 12.5 g/dL Low 13.0-17.0 [facility] Comment on above: Performed By: #### C DP, BMPX, IPF #### [facility] [address] [place], [place] 8683583 Booking Manager: Jabari Padgett MD Immature granulocytes/100 WBC (Bld) 1 % High 0 [facility] Comment on above: Performed By: #### C DP, BMPX, IPF #### [facility] [address] [place], [place] 4308083 Booking Manager: Jabari Padgett MD Lymphocytes (Bld) [#/Vol] 1.75 10*3/uL Normal 1.10-3.70 [facility] Comment on above: Performed By: #### C DP, BMPX, IPF #### [facility] [address] [place], [place] 6386683 Booking Manager: Jabari Padgett MD Lymphocytes/100 WBC (Bld) 22 % Low 24-43 [facility] Comment on above: Performed By: #### C DP, BMPX, IPF #### [facility] [address] [place] [address] Booking Manager: Jabari Padgett MD MCH (RBC) [Entitic mass] 30.9 pg Normal 25.2-33.5 [facility] Comment on above: Performed By: #### C DP, BMPX, IPF #### [address] [place] [address] Booking Manager: Jabari Padgett MD MCHC (RBC) [Mass/Vol] 34.5 g/dL Normal 28.4-34.8 [facility] Comment on above: Performed By: #### C DP, BMPX, IPF #### [address] [place], [place] 4761383 Booking Manager: Jabari Padgett MD MCV (RBC) [Entitic vol] 89.4 fL Normal 82.6-102.9 [facility] Comment on above: Performed By: #### C DP, BMPX, IPF #### [facility] [address] [place] [address] Booking Manager: Jabari Padgett MD Monocytes (Bld) [#/Vol] 0.64 10*3/uL Normal 0.10-1.20 [facility] Comment on above: Performed By: #### C DP, BMPX, IPF #### [facility] [address] [place], [place] 4609383 Booking Manager: Jabari Padgett MD Monocytes/100 WBC (Bld) 8 % Normal 3-12 [facility] Comment on above: Performed By: #### C DP, BMPX, IPF #### [facility] [address] [place], [place] 2519483 Booking Manager: Jabari Padgett MD Neutrophil (Seg) 69 % High 36-65 [facility] Comment on above: Performed By: #### C DP, BMPX, IPF #### [facility] [address] [place], [place] 6038483 Booking Manager: Jabari Padgett MD NRBC Automated 0.0 per 100 WBC Normal 0.0 [facility] Comment on above: Performed By: #### C DP, BMPX, IPF #### [facility] [address] [place], [place] 7110883 Booking Manager: Jabari Padgett MD Platelet Count See Reflexed IPF Result Normal 138-453 [facility] Comment on above: Performed By: #### C DP, BMPX, IPF #### [facility] [address] [place], [place] 2735783 Booking Manager: Jabari Padgett MD RBC (Bld) [#/Vol] 4.05 10*6/uL Low 4.21-5.77 [facility] Comment on above: Performed By: #### C DP, BMPX, IPF #### [facility] [address] [place] [address] [place] [address] Booking Manager: Jabari Padgett MD WBC (Bld) [#/Vol] 8.1 10*3/uL Normal 3.5-11.3 [facility] Comment on above: Performed By: #### C DP, BMPX, IPF #### [facility] [address] [place], [place] 0666483 Booking Manager: Jabari Padgett MD PLT, Immature Fract.on 08-30 Platelet, Fluoresc. 141 k/uL Normal 138-453 [facility] Comment on above: Performed By: #### C DP, BMPX, IPF #### [facility] [address] [place] [address] Booking Manager: Jabari Padgett MD PLT, Immature Fract. 3.1 % Normal 1.1-10.3 [facility] Comment on above: Performed By: #### C DP, BMPX, IPF #### [facility] [address] [place] [address] Booking Manager: Jabari Padgett MD [id number] 08-30-2022 SARS-CoV-2 (COVID-19) RNA USHA+probe Ql (Unsp spec) Detected Abnormal NOTDET [facility] Comment on above: Result Comment: Rapid NAAT: [...] this assay. Fact sheet for Healthcare Providers: https://www.fda.gov/media/217013/download Fact sheet for Patients: https://www.fda.gov/media/962760/download Methodology: Isothermal Nucleic Acid Amplification Results reported to the appropriate Health Department Performed By: #### C DP, CP #### [facility] [address] [place] [address] Booking Manager: Jabari Padgett MD Basic Metab w/rfx MGon 08-292 Anion gap [Moles/Vol] 9 mmol/L Normal 9-17 [facility] Comment on above: Performed By: #### C DP, CP #### [facility] [address] [place] [address] Booking Manager: Jabari Padgett MD BUN/CRE Ratio 15 Normal 9-20 [facility] Comment on above: Performed By: #### C DP, CP #### [facility] [address] [place], [place] 5269183 Booking Manager: Jabari Padgett MD Calcium [Mass/Vol] 8.7 mg/dL Normal 8.6-10.4 [facility] Comment on above: Performed By: #### C DP, CP #### [facility] [address] [place], [place] 7332683 Booking Manager: Jabari Padgett MD Chloride [Moles/Vol] 99 mmol/L Normal 98-107 [facility] Comment on above: Performed By: #### C DP, CP #### [facility] [address] [place] [address] Booking Manager: Jabari Padgett MD CO2 [Moles/Vol] 29 mmol/L Normal 20-31 [facility] Comment on above: Performed By: #### C DP, CP #### [facility] [address] [place], [place] 1793183 Booking Manager: Jabari Padgett MD Creatinine [Mass/Vol] 2.21 mg/dL High 0.70-1.20 [facility] Comment on above: Performed By: #### C DP, CP #### [facility] [address] [place], [place] 2066683 Booking Manager: Jabari Padgett MD GFR/1.73 sq M.predicted among non-blacks MDRD (S/P/Bld) [Vol rate/Area] 30 mL/min/{1.73_m2} Low >60 [facility] Comment on above: Result Comment: These results [...] Performed By: #### C DP, CP #### [facility] [address] [place], [place] 9185183 Booking Manager: Jabari Padgett MD Glucose [Mass/Vol] 167 mg/dL High 70-99 [facility] Comment on above: Performed By: #### C DP, CP #### [facility] [address] [place] [address] Booking Manager: Jabari Padgett MD Potassium [Moles/Vol] 4.6 mmol/L Normal 3.7-5.3 [facility] Comment on above: Performed By: #### C DP, CP #### [address] [place] 540[address]83 Booking Manager: Jabari Padgett MD Sodium [Moles/Vol] 137 mmol/L Normal 135-144 [facility] Comment on above: Performed By: #### C DP, CP #### [address] [place] [address] Booking Manager: Jabari Padgett MD Urea nitrogen [Mass/Vol] 33 mg/dL High 8-23 [facility] Comment on above: Performed By: #### C DP, CP #### [facility] [address] [place] [address] Dr. [place], [facility]83 Booking Manager: Jaabri Padgett MD CBC with Diffon 08-29-2022 Abs. Basophil 0.04 k/uL Normal 0.00-0.20 [facility] Comment on above: Performed By: #### B AMBERLY MEIER, CDP #### [facility] [address] [place] [address] [place], [place] 0746583 Booking Manager: Jabari Padgett MD Abs.Imm.Granulocyte 0.04 k/uL Normal 0.00-0.30 [facility] Comment on above: Performed By: #### B AMBERLY MEIER, CDP #### [facility] [address] [place], [facility]83 Booking Manager: Jabari Padgett MD Abs.Neutrophil (Seg) 6.05 k/uL Normal 1.50-8.10 [facility] Comment on above: Performed By: #### B MPX, IPF, CDP #### [address] [place], [facility]83 Booking Manager: Jabari Padgett MD Basophils/100 WBC (Bld) 0 % Normal 0-2 [facility] Comment on above: Performed By: #### B MPX, IPF, CDP #### [address] [place], [place] [address] Booking Manager: Jabari Padgett MD Eosinophils (Bld) [#/Vol] 0.09 10*3/uL Normal 0.00-0.44 [facility] Comment on above: Performed By: #### B MPX, IPF, CDP #### [address] [place], [facility]83 Booking Manager: Jabari Padgett MD Eosinophils/100 WBC (Bld) 1 % Normal 1-4 [facility] Comment on above: Performed By: #### B MPX, IPF, CDP #### [address] [place], [facility]83 Booking Manager: Jabari Padgett MD Erythrocyte distribution width (RBC) [Ratio] 13.0 % Normal 11.8-14.4 [facility] Comment on above: Performed By: #### B MPX, IPF, CDP #### [address] [place] [address] Booking Manager: Jabari Padgett MD Hematocrit (Bld) [Volume fraction] 38.6 % Low 40.7-50.3 [facility] Comment on above: Performed By: #### B MPX, IPF, CDP #### [address] [place] [address] Booking Manager: Jabari Padgett MD Hemoglobin (Bld) [Mass/Vol] 13.2 g/dL Normal 13.0-17.0 [facility] Comment on above: Performed By: #### B MPX, IPF, CDP #### [address] [place] [address] Booking Manager: Jabari Padgett MD Immature granulocytes/100 WBC (Bld) 0 % Normal 0 [facility] Comment on above: Performed By: #### B MPX, IPF, CDP #### [address] [place] [address] Booking Manager: Jabari Padgett MD Lymphocytes (Bld) [#/Vol] 1.93 10*3/uL Normal 1.10-3.70 [facility] Comment on above: Performed By: #### B MPX, IPF, CDP #### [address] [place], [facility]83 Booking Manager: Jabari Padgett MD Lymphocytes/100 WBC (Bld) 21 % Low 24-43 [facility] Comment on above: Performed By: #### B MPX, IPF, CDP #### [address] [place] [address] Booking Manager: Jabari Padgett MD MCH (RBC) [Entitic mass] 31.3 pg Normal 25.2-33.5 [facility] Comment on above: Performed By: #### B MPX, IPF, CDP #### [address] [place] [address] Booking Manager: Jabari Padgett MD MCHC (RBC) [Mass/Vol] 34.2 g/dL Normal 28.4-34.8 [facility] Comment on above: Performed By: #### B MPX, IPF, CDP #### [facility] [address] [place] [address] [place], [place] 7802883 Booking Manager: Jabari Padgett MD MCV (RBC) [Entitic vol] 91.5 fL Normal 82.6-102.9 [facility] Comment on above: Performed By: #### B MPX, IPF, CDP #### [facility] [address] [place], [place] 8622783 Booking Manager: Jabari Padgett MD Monocytes (Bld) [#/Vol] 0.90 10*3/uL Normal 0.10-1.20 [facility] Comment on above: Performed By: #### B MPX, IPF, CDP #### [address] [place], [place] 0017283 Booking Manager: Jabari Padgett MD Monocytes/100 WBC (Bld) 10 % Normal 3-12 [facility] Comment on above: Performed By: #### B MPX, IPF, CDP #### [address] [place], [place] 4003083 Booking Manager: Jabari Padgett MD Neutrophil (Seg) 67 % High 36-65 [facility] Comment on above: Performed By: #### B MPX, IPF, CDP #### [address] [place], [place] 6682283 Booking Manager: Jabari Padgett MD NRBC Automated 0.0 per 100 WBC Normal 0.0 [facility] Comment on above: Performed By: #### B MPX, IPF, CDP #### [facility] [address] [place] [address] Booking Manager: Jabari Padgett MD Platelet Count See Reflexed IPF Result Normal 138-453 [facility] Comment on above: Performed By: #### B MPX, IPF, CDP #### [facility] [address] [place], [place] 7027483 Booking Manager: Jabari Padgett MD RBC (Bld) [#/Vol] 4.22 10*6/uL Normal 4.21-5.77 [facility] Comment on above: Performed By: #### B MPX, IPF, CDP #### [facility] [address] [place], [place] 0617983 Booking Manager: Jabari Padgett MD WBC (Bld) [#/Vol] 9.1 10*3/uL Normal 3.5-11.3 [facility] Comment on above: Performed By: #### B MPX, IPF, CDP #### [facility] [address] [place], [place] 8517683 Booking Manager: Jabari Padgett MD PLT, Immature Fract.on 08-29 Platelet, Fluoresc. 136 k/uL Low 138-453 [facility] Comment on above: Performed By: #### B LENINXAMBERLY, CDP #### [facility] [address] [place], [place] 9694183 Booking Manager: Jabari Padgett MD PLT, Immature Fract. 2.5 % Normal 1.1-10.3 [facility] Comment on above: Performed By: #### B MPX IPF, CDP #### [facility] [address] [place], [place] 7606483 Booking Manager: Jabari Padgett MD 36on 08-28-2022 36 REILLY Tim from [facility] stating patient was admitted 08/27/2022 for abdominal pain, thank you! Normal [facility] Basic Metab w/rfx MGon 08-28 Anion gap [Moles/Vol] 9 mmol/L Normal 9-17 [facility] Comment on above: Performed By: #### C DP, CP #### [facility] [address] [place] [address] Booking Manager: Jabari Padgett MD BUN/CRE Ratio 18 Normal 9-20 [facility] Comment on above: Performed By: #### C DP, CP #### [facility] [address] [place], [place] 8364683 Booking Manager: Jabari Padgett MD Calcium [Mass/Vol] 9.1 mg/dL Normal 8.6-10.4 [facility] Comment on above: Performed By: #### C DP, CP #### [facility] [address] [place] [address] Booking Manager: Jabari Padgett MD Chloride [Moles/Vol] 104 mmol/L Normal 98-107 [facility] Comment on above: Performed By: #### C DP, CP #### [facility] [address] [place], [place] 8069183 Booking Manager: Jabari Padgett MD CO2 [Moles/Vol] 24 mmol/L Normal 20-31 [facility] Comment on above: Performed By: #### C DP, CP #### [facility] [address] [place], [place] 2316583 Booking Manager: Jabari Padgett MD Creatinine [Mass/Vol] 1.97 mg/dL High 0.70-1.20 [facility] [facility] Comment on above: Performed By: #### C DP, CP #### [facility] [address] [place] [address] [place], [place] [id number] Booking Manager: Jabari Padgett MD GFR/1.73 sq M.predicted among non-blacks MDRD (S/P/Bld) [Vol rate/Area] 34 mL/min/{1.73_m2} Low >60 [facility] Comment on above: Result Comment: These results [...] Performed By: #### C DP, CP #### [facility] [address] [place], [place] [id number] Booking Manager: Jabari Padgett MD Glucose [Mass/Vol] 150 mg/dL High 70-99 [facility] Comment on above: Performed By: #### C DP, CP #### [facility] [address] [place], [place] 1569583 Booking Manager: Jabari Padgett MD Potassium [Moles/Vol] 4.3 mmol/L Normal 3.7-5.3 [facility] Comment on above: Performed By: #### C DP, CP #### [address] [place], [place] 1637683 Booking Manager: Jabari Padgett MD Sodium [Moles/Vol] 137 mmol/L Normal 135-144 [facility] Comment on above: Performed By: #### C DP, CP #### [facility] [address] [place] [address] [place], [place] 0007283 Booking Manager: Jabari Padgett MD Urea nitrogen [Mass/Vol] 35 mg/dL High 8-23 [facility] Comment on above: Performed By: #### C DP, CP #### [address] [place], [place] 3802383 Booking Manager: Jabari Padgett MD CBC with Diffon 08-28-2022 Abs. Basophil 0.03 k/uL Normal 0.00-0.20 [facility] Comment on above: Performed By: #### C DP, CP #### [facility] [address] [place], [place] 9556983 Booking Manager: Jabari Padgett MD Abs.Imm.Granulocyte <0.03 Normal 0.00-0.30 [facility] Comment on above: Performed By: #### C DP, CP #### [facility] [address] [place], [place] [phone] Booking Manager: Jabari Padgett MD Abs.Neutrophil (Seg) 5.01 k/uL Normal 1.50-8.10 [facility] Comment on above: Performed By: #### C DP, CP #### [address] [place], [place] [address] Booking Manager: Jabari Padgett MD Basophils/100 WBC (Bld) 0 % Normal 0-2 [facility] Comment on above: Performed By: #### C DP, CP #### [address] [place], [place] [address] Booking Manager: Jabari Padgett MD Eosinophils (Bld) [#/Vol] 0.12 10*3/uL Normal 0.00-0.44 [facility] Comment on above: Performed By: #### C DP, CP #### [address] [place], [place] [address] Booking Manager: Jabari Padgett MD Eosinophils/100 WBC (Bld) 2 % Normal 1-4 [facility] Comment on above: Performed By: #### C DP, CP #### [address] [place], [place] [address] Booking Manager: Jabari Padgett MD Erythrocyte distribution width (RBC) [Ratio] 13.0 % Normal 11.8-14.4 [facility] Comment on above: Performed By: #### C DP, CP #### [address] [place], [place] [address] Booking Manager: Jabari Padgett MD Hematocrit (Bld) [Volume fraction] 38.9 % Low 40.7-50.3 [facility] Comment on above: Performed By: #### C DP, CP #### [address] [place], [facility]83 Booking Manager: Jabari Padgett MD Hemoglobin (Bld) [Mass/Vol] 13.6 g/dL Normal 13.0-17.0 [facility] Comment on above: Performed By: #### C DP, CP #### [facility] [address] [place], [place] 7404483 Booking Manager: Jabari Padgett MD Immature granulocytes/100 WBC (Bld) 0 % Normal 0 [facility] Comment on above: Performed By: #### C DP, CP #### [address] [place], [place] [address] Booking Manager: Jabari Padgett MD Lymphocytes (Bld) [#/Vol] 1.86 10*3/uL Normal 1.10-3.70 [facility] Comment on above: Performed By: #### C DP, CP #### [address] [place], [facility]83 Booking Manager: Jabari Padgett MD Lymphocytes/100 WBC (Bld) 23 % Low 24-43 [facility] Comment on above: Performed By: #### C DP, CP #### [address] [place], [facility]83 Booking Manager: Jabari Padgett MD MCH (RBC) [Entitic mass] 32.1 pg Normal 25.2-33.5 [facility] Comment on above: Performed By: #### C DP, CP #### [address] [place], [facility]83 Booking Manager: Jabari Padgett MD MCHC (RBC) [Mass/Vol] 35.0 g/dL High 28.4-34.8 [facility] Comment on above: Performed By: #### C DP, CP #### [address] [place], [place] 6959983 Booking Manager: Jabari Padgett MD MCV (RBC) [Entitic vol] 91.7 fL Normal 82.6-102.9 [facility] Comment on above: Performed By: #### C DP, CP #### [facility] [address] [place], [place] [id number] Booking Manager: Jabari Padgett MD Monocytes (Bld) [#/Vol] 0.92 10*3/uL Normal 0.10-1.20 [facility] Comment on above: Performed By: #### C DP, CP #### [facility] [address] [place], [place] 7305583 Booking Manager: Jabari Padgett MD Monocytes/100 WBC (Bld) 12 % Normal 3-12 [facility] Comment on above: Performed By: #### C DP, CP #### [address] [place], [place] 6432583 Booking Manager: Jabari Padgett MD Neutrophil (Seg) 63 % Normal 36-65 [facility] Comment on above: Performed By: #### C DP, CP #### [address] [place], [place] [phone] Booking Manager: Jabari Padgett MD NRBC Automated 0.0 per 100 WBC Normal 0.0 [facility] Comment on above: Performed By: #### C DP, CP #### [address] [place], [place] 4353083 Booking Manager: Jabari Padgett MD Platelet Count See Reflexed IPF Result Normal 138-453 [facility] Comment on above: Performed By: #### C DP, CP #### [address] [place], [place] 6764583 Booking Manager: Jabari Padgett MD RBC (Bld) [#/Vol] 4.24 10*6/uL Normal 4.21-5.77 [facility] Comment on above: Performed By: #### C DP, CP #### [address] [place], [place] 2062783 Booking Manager: Jabari Padgett MD WBC (Bld) [#/Vol] 8.0 10*3/uL Normal 3.5-11.3 [facility] Comment on above: Performed By: #### C DP, CP #### [facility] [address] [place] [address] Booking Manager: Jabari Padgett MD Hemoglobin A1Con 08-28-2022 Glucose [Mass/Vol] 240 mg/dL Normal [facility] Comment on above: Result Comment: The ADA and AACC recommend providing the estimated average glucose result to permit better patient understanding of their HBA1c result. Performed By: #### C DP, CP #### [facility] [address] [place], [place] 7394983 Booking Manager: Jabari Padgett MD HbA1c (Bld) [Mass fraction] 10.0 % High 4.0-6.0 [facility] Comment on above: Performed By: #### C DP, CP #### [address] [place], [place] 6230383 Booking Manager: Jabari Padgett MD PLT, Immature Fract.on 08-28 Platelet, Fluoresc. 142 k/uL Normal 138-453 [facility] Comment on above: Performed By: #### C DP, CP #### [address] [place], [place] 6866183 Booking Manager: Jabari Padgett MD PLT, Immature Fract. 2.0 % Normal 1.1-10.3 [facility] Comment on above: Performed By: #### C DP, CP #### [facility] [address] [place], [place] 5226183 Booking Manager: Jabari Padgett MD Basic Metabolic Profon 08-27 Anion gap [Moles/Vol] 11 mmol/L Normal 9-17 [facility] Comment on above: Performed By: #### C DP, IPF, BMPX #### [facility] [address] [place] [address] Booking Manager: Jabari Padgett MD BUN/CRE Ratio 17 Normal 9-20 [facility] Comment on above: Performed By: #### C DP, IPF, BMPX #### [facility] [address] [place] [address] Booking Manager: Jabari Padgett MD Calcium [Mass/Vol] 9.2 mg/dL Normal 8.6-10.4 [facility] Comment on above: Performed By: #### C DP, IPF, BMPX #### [facility] [address] [place] [address] Booking Manager: Jabari Padgett MD Chloride [Moles/Vol] 98 mmol/L Normal 98-107 [facility] Comment on above: Performed By: #### C DP, IPF, BMPX #### [facility] [address] [place] [address] Booking Manager: Jabari Padgett MD CO2 [Moles/Vol] 25 mmol/L Normal 20-31 [facility] Comment on above: Performed By: #### C DP, IPF, BMPX #### [facility] [address] [place], [place] 4980183 Booking Manager: Jabari Padgett MD Creatinine [Mass/Vol] 2.37 mg/dL High 0.70-1.20 [facility] Comment on above: Performed By: #### C DP, IPF, BMPX #### [facility] [address] [place] [address] Booking Manager: Jabari Padgett MD GFR/1.73 sq M.predicted among non-blacks MDRD (S/P/Bld) [Vol rate/Area] 28 mL/min/{1.73_m2} Low >60 [facility] Comment on above: Result Comment: These results [...] By: #### C AMBERLY SHAFFER, BMPX #### [facility] [address] [place], [place] 7781283 Booking Manager: Jabari Padgett MD Glucose [Mass/Vol] 247 mg/dL High 70-99 [facility] Comment on above: Performed By: #### C DP IPF, BMPX #### [facility] [address] [place] [address] Booking Manager: Jabari Padgett MD Potassium [Moles/Vol] 4.8 mmol/L Normal 3.7-5.3 [facility] Comment on above: Performed By: #### C DEENA IPF, BMPX #### [address] [place] [address] Booking Manager: Jabari Padgett MD Sodium [Moles/Vol] 134 mmol/L Low 135-144 [facility] Comment on above: Performed By: #### C AMBERLY SHAFFER, BMPX #### [address] [place] [address] Booking Manager: Jabari Padgett MD Urea nitrogen [Mass/Vol] 41 mg/dL High 8-23 [facility] Comment on above: Performed By: #### C DP IPF, BMPX #### [facility] [address] [place] [address] Booking Manager: Jabari Padgett MD CBC with Diffon 08-27-2022 Abs. Basophil 0.03 k/uL Normal 0.00-0.20 [facility] Comment on above: Performed By: #### C DP, IPF, BMPX #### [facility] [address] [place], [place] 2643283 Booking Manager: Jabari Padgett MD Abs.Imm.Granulocyte 0.04 k/uL Normal 0.00-0.30 [facility] Comment on above: Performed By: #### C DP, IPF, BMPX #### [address] [place] [id number] Booking Manager: Jabari Padgett MD Abs.Neutrophil (Seg) 6.39 k/uL Normal 1.50-8.10 [facility] Comment on above: Performed By: #### C DP, IPF, BMPX #### [address] [place] 5402983 Booking Manager: Jabari Padgett MD Basophils/100 WBC (Bld) 0 % Normal 0-2 [facility] Comment on above: Performed By: #### C DP, IPF, BMPX #### [address] [place] 5402983 Booking Manager: Jabari Padgett MD Eosinophils (Bld) [#/Vol] 0.09 10*3/uL Normal 0.00-0.44 [facility] Comment on above: Performed By: #### C DP, IPF, BMPX #### [address] [place] [id number] Booking Manager: Jabari Padgett MD Eosinophils/100 WBC (Bld) 1 % Normal 1-4 [facility] Comment on above: Performed By: #### C DP, IPF, BMPX #### [address] [place], [facility]83 Booking Manager: Jabari Padgett MD Erythrocyte distribution width (RBC) [Ratio] 12.9 % Normal 11.8-14.4 [facility] Comment on above: Performed By: #### C DP, IPF, BMPX #### [address] [place] [address] Booking Manager: Jabari Padgett MD Hematocrit (Bld) [Volume fraction] 38.4 % Low 40.7-50.3 [facility] Comment on above: Performed By: #### C DP, IPF, BMPX #### [address] [place] [address] Booking Manager: Jabari Padgett MD Hemoglobin (Bld) [Mass/Vol] 13.6 g/dL Normal 13.0-17.0 [facility] Comment on above: Performed By: #### C DP, IPF, BMPX #### [address] [place] [address] Booking Manager: Jabari Padgett MD Immature granulocytes/100 WBC (Bld) 0 % Normal 0 [facility] Comment on above: Performed By: #### C DP, IPF, BMPX #### [address] [place] [address] Booking Manager: Jabari Padgett MD Lymphocytes (Bld) [#/Vol] 2.20 10*3/uL Normal 1.10-3.70 [facility] Comment on above: Performed By: #### C DP, IPF, BMPX #### [address] [place] [address] Booking Manager: Jabari Padgett MD Lymphocytes/100 WBC (Bld) 23 % Low 24-43 [facility] Comment on above: Performed By: #### C DP, IPF, BMPX #### [address] [place], [facility]83 Booking Manager: Jabari Padgett MD MCH (RBC) [Entitic mass] 31.9 pg Normal 25.2-33.5 [facility] Comment on above: Performed By: #### C DP, IPF, BMPX #### [address] [place] [id number] Booking Manager: Jabari Padgett MD MCHC (RBC) [Mass/Vol] 35.4 g/dL High 28.4-34.8 [facility] Comment on above: Performed By: #### C DP, IPF, BMPX #### [facility] [address] [place], [facility]83 Booking Manager: Jabari Padgett MD MCV (RBC) [Entitic vol] 90.1 fL Normal 82.6-102.9 [facility] Comment on above: Performed By: #### C DP, IPF, BMPX #### [address] [place], [facility]83 Booking Manager: Jabari Padgett MD Monocytes (Bld) [#/Vol] 0.82 10*3/uL Normal 0.10-1.20 [facility] Comment on above: Performed By: #### C DP, IPF, BMPX #### [address] [place], [facility]83 Booking Manager: Jabari Padgett MD Monocytes/100 WBC (Bld) 9 % Normal 3-12 [facility] Comment on above: Performed By: #### C DP, IPF, BMPX #### [address] [place], [facility]83 Booking Manager: Jabari Padgett MD Neutrophil (Seg) 67 % High 36-65 [facility] Comment on above: Performed By: #### C DP, IPF, BMPX #### [address] [place], [facility]83 Booking Manager: Jabari Padgett MD NRBC Automated 0.0 per 100 WBC Normal 0.0 [facility] Comment on above: Performed By: #### C DP, IPF, BMPX #### [address] [place] [address] Booking Manager: Jabari Padgett MD Platelet mean volume (Bld) [Entitic vol] 10.1 fL Normal 8.1-13.5 [facility] Comment on above: Performed By: #### C DP, IPF, BMPX #### [facility] [address] [place], [place] 8125583 Booking Manager: Jabari Padgett MD Platelets (Bld) [#/Vol] 157 10*3/uL Normal 138-453 [facility] Comment on above: Performed By: #### C DP, IPF, BMPX #### [facility] [address] [place] [address] Booking Manager: Jabari Padgett MD RBC (Bld) [#/Vol] 4.26 10*6/uL Normal 4.21-5.77 [facility] Comment on above: Performed By: #### C DP, IPF, BMPX #### [facility] [address] [place], [place] 0440383 Booking Manager: Jabari Padgett MD WBC (Bld) [#/Vol] 9.6 10*3/uL Normal 3.5-11.3 [facility] Comment on above: Performed By: #### C DP, IPF, BMPX #### [facility] [address] [place] [address] Booking Manager: Jabari Padgett MD CT ABDOMEN PELVIS WO [...] by: Michael Williamson MD Signed by: Michael Williamson MD 08/27/22 Final result Normal [facility] UA w/Reflex Cultureon 2022 Bilirubin, SemiQt,Ur Negative Normal NEG [facility] Comment on above: Performed By: #### C DP, CP #### [facility] [address] [place] [address] [place] [address] Booking Manager: Jabari Padgett MD Blood, Urine Negative Normal NEG [facility] Comment on above: Performed By: #### C DP, CP #### [address] [place] [address] Booking Manager: Jabari Padgett MD Clarity (U) Clear Normal CLEAR [facility] Comment on above: Performed By: #### C DP, CP #### [facility] [address] [place] [address] [place] [address] Booking Manager: Jabari Padgett MD Color (U) Yellow Normal YEL [facility] Comment on above: Performed By: #### C DP, CP #### [facility] [address] [place] [address] [place] [address] Booking Manager: Jabari Padgett MD Glucose Ql (U) 2+ Abnormal NEG [facility] Comment on above: Performed By: #### C DP, CP #### [facility] [address] [place] [address] Dr[place], [facility]83 Booking Manager: Jabari Padgett MD Ketones Ql (U) Negative Normal NEG [facility] Comment on above: Performed By: #### C DP, CP #### [facility] [address] [place] [address] Dr[place], [facility]83 Booking Manager: Jabari Padgett MD Leukocyte esterase Test strip Ql (U) Negative Normal NEG [facility] Comment on above: Performed By: #### C DP, CP #### [address] [place] [address] Booking Manager: Jabari Padgett MD Nitrite,Ur Negative Normal NEG [facility] Comment on above: Performed By: #### C DP, CP #### [facility] [address] [place] [address] [place] [address] Booking Manager: Jabari Padgett MD PH,Ur 7.0 Normal 5.0-9.0 [facility] Comment on above: Performed By: #### C DP, CP #### [address] [place] [address] Booking Manager: Jabari Padgett MD Protein Ql (U) 2+ Abnormal NEG [facility] Comment on above: Performed By: #### C DP, CP #### [facility] [address] [place] [address] Dr[place], [place] [address] Booking Manager: Jabari Padgett MD Spec. [place],Ur 1.015 Normal 1.010-1.020 [facility] Comment on above: Performed By: #### C DP, CP #### [address] [place] [id number] Booking Manager: Jabari Padgett MD Urobilinogen,Ur Normal Normal NORM [facility] Comment on above: Performed By: #### C DP, CP #### [facility] [address] [place], [place] 7769583 Booking Manager: Jabari Padgett MD Urinalysis,Microon 3 Bacteria TRACE Abnormal NONE [facility] Comment on above: Performed By: #### C DP, IPF, BMPX #### [facility] [address] [place], [place] 5753783 Booking Manager: Jabari Padgett MD Epithelial cells LM Ql (Urine sed) 2 TO 5 Normal 0-5 [facility] Comment on above: Performed By: #### C DP, IPF, BMPX #### [facility] [address] [place], [place] 3419083 Booking Manager: Jabari Padgett MD Mucus Strands TRACE Abnormal NONE [facility] Comment on above: Performed By: #### C DP, IPF, BMPX #### [address] [place], [place] 4251183 Booking Manager: Jabari Padgett MD Urine RBC's None Normal 0-2 [facility] Comment on above: Performed By: #### C DP, IPF, BMPX #### [facility] [address] [place], [place] 2118883 Booking Manager: Jabari Padgett MD Urine WBC's None Normal 0-5 [facility] Comment on above: Performed By: #### C DP, IPF, BMPX #### [address] [place], [place] 1189283 Booking Manager: Jabari Padgett MD XR HIP 2-3 VW [...] Elton Walters MD 08/27/22 Final result Normal [facility] Office Visiton 07-31-2022 Follow-up visit [id number] Anne-MarieBertha Vipul 1945 M Date Provider Department Center 07/31/2022 [id number] [facility] Comprehensiv Family History Family history unknown: Yes Level of Service:21519 [place] OFFICE/OUTPATIENT ESTABLISHED LOW MDM 20-29 MIN (GC) Reason for Visit and Comments: Follow-up [540288] - CKD 3 Normal [facility] BILIRUBIN CONJUGATED (DIRECT )on 07-27-2022 BILI, CONJUGATED 0.2 mg/dL Normal 0.0-0.2 [facility] Comment on above: Performed By: #### D SHARIFA, TSH #### [facility] [address] [place] [address] [address] Gallo Infante FREE T4on 07-27-2022 Free T4 [Mass/Vol] 1.11 ng/dL Normal 0.76-1.46 [place] Comment on above: Performed By: #### F T4 #### [facility] [address] [place] [address] [address] Gallo Infante LIPID PROFILEon 07-27-2022 CHOL-HDL RATIO NORM SEE BELOW Normal [facility] Comment on above: Result Comment: 3.3 - 4.4 LOW RISK 4.4 - 7.1 AVERAGE RISK 7.1 - 11.0 MODERATE RISK >11.0 HIGH RISK Performed By: #### D SHARIFA, TSH #### [facility] [address] [place] [address] [address] Gallo Infante Cholesterol [Mass/Vol] 102 mg/dL Normal <=200 [facility] Comment on above: Performed By: #### D SHARIFA, TSH #### [facility] [address] [place] [address] [address] Gallo Infante Cholesterol in HDL [Mass/Vol] 45 mg/dL Normal 40-60 [facility] Comment on above: Performed By: #### D SHARIFA, TSH #### [facility] [address] [place] [address] [address] Gallo Infante Cholesterol in LDL [Mass/Vol] 40.2 mg/dL Normal [facility] Comment on above: Performed By: #### D SHARIFA, TSH #### [facility] [address] [place] [address] [address] Gallo Infante Cholesterol.total/Blanche sterol in HDL [Mass ratio] 2.3 {ratio} Normal [facility] Comment on above: Performed By: #### D SHARIFA, TSH #### [facility] [address] [place] [address] [address] Gallo Infante HDL NORMAL > or = 60 mg/dl - LO W CARDIOVASCULAR RISK <40 mg/dl - HIGH CARDIOVASCULAR RISK Normal [facility] Comment on above: Performed By: #### D SHARIFA, TSH #### [facility] [address] [place] [address] [address] Gallo Infante LDL CALC NORMAL SEE BELOW Normal [facility] Comment on above: Result Comment: <100 mg/dl OPTIMAL 100 - 129 mg/dl NEAR OR ABOVE OPTIMAL 130 - 159 mg/dl BORDERLINE HIGH 160 - 189 mg/dl HIGH >190 mg/dl VERY HIGH Performed By: #### D SHARIFA, TSH #### [facility] [address] [place] [address] [address] Gallo Infante Triglyceride [Mass/Vol] 84 mg/dL Normal <=150 T [facility] Comment on above: Performed By: #### D SHARIFA, TSH #### [facility] [address] [place] [address] [address] Gallo Infante VLDL CALC 16.8 mg/dL Normal [facility] Comment on above: Performed By: #### D SHARIFA, TSH #### [facility] [address] [address] [address] Gallo Infante PROF 14(COMP METB)on 023 Albumin [Mass/Vol] 2.9 g/dL Critically low 3.4-5.0 [facility] Comment on above: Performed By: #### D SHARIFA, TSH #### [facility] [address] [place] [address] [address] Gallo Infante Albumin/Globulin [Mass ratio] 0.6 {ratio} Normal [facility] Comment on above: Performed By: #### D SHARIFA, TSH #### [facility] [address] [place] [address] [address] Gallo Infante ALP [Catalytic activity/Vol] 119 U/L Critically high 46-116 [facility] Comment on above: Performed By: #### D SHARIFA, TSH #### [facility] [address] [address] [address] Gallo Infante ALT [Catalytic activity/Vol] 29 U/L Normal 16-63 [facility] Comment on above: Performed By: #### D SHARIFA, TSH #### [facility] [address] [address] [address] Gallo Infante Anion gap [Moles/Vol] 10.1 mmol/L Normal [facility] Comment on above: Performed By: #### D SHARIFA, TSH #### [facility] [address] [address] [address] Gallo Infante AST [Catalytic activity/Vol] 21 U/L Normal 15-37 [facility] Comment on above: Performed By: #### D SHARIFA, TSH #### [facility] [address] [address] [address] Gallo Infante Bilirubin [Mass/Vol] 0.4 mg/dL Normal 0.2-1.0 [facility] Comment on above: Performed By: #### D SHARIFA, TSH #### [facility] [facility] [address] [address] [address] Gallo Infante Calcium [Mass/Vol] 8.8 mg/dL Normal 8.5-10.1 [place] Comment on above: Performed By: #### D SHARIFA, TSH #### [facility] [address] [address] [address] Gallo Infante Chloride [Moles/Vol] 102 mmol/L Normal 98-107 [facility] Comment on above: Performed By: #### D SHARIFA, TSH #### [facility] [address] [place] [address] Dr. Gallo Infante CO2 [Moles/Vol] 31.3 mmol/L Normal 21.0-32.0 [facility] Comment on above: Performed By: #### D SHARIFA, TSH #### [facility] [address] [place] [address] Dr. Gallo Infante Creatinine [Mass/Vol] 2.37 mg/dL Critically high 0.70-1.30 [facility] Comment on above: Performed By: #### D SHARIFA, TSH #### [facility] [address] [place] [address] Dr. Gallo Infante EGFR-AF TANZANIAN 32 mL/min/1.73m2 Critically low >=60 [facility] Comment on above: Performed By: #### D SHARIFA, TSH #### [facility] [address] [place] [address] Dr. Gallo Infante EGFR-NON AF TANZANIAN 27 mL/min/1.73m2 Critically low >=60 [facility] Comment on above: Performed By: #### D SHARIFA, TSH #### [facility] [address] [place] [address] Dr. Gallo Infante Globulin (S) [Mass/Vol] 4.5 g/dL Normal [facility] Comment on above: Performed By: #### D SHARIFA, TSH #### [facility] [address] [place] [address] Dr. Gallo Infante Glucose [Mass/Vol] 156 mg/dL Critically high 74-106 [facility] Comment on above: Performed By: #### D SHARIFA, TSH #### [facility] [address] [place] [address] Dr. Gallo Infante Potassium [Moles/Vol] 4.4 mmol/L Normal 3.5-5.1 [facility] Comment on above: Performed By: #### D SHARIFA, TSH #### [facility] [address] [place] [address] Dr. Gallo Infante Protein [Mass/Vol] 7.4 g/dL Normal 6.4-8.2 [place] Comment on above: Performed By: #### D SHARIFA, TSH #### [facility] [address] [address] [address] Gallo Infante Sodium [Moles/Vol] 139 mmol/L Normal 136-145 [place] Comment on above: Performed By: #### D SHARIFA, TSH #### [facility] [address] [address] [address] Gallo Infante Urea nitrogen [Mass/Vol] 46.0 mg/dL Critically high 7.0-18.0 [facility] Comment on above: Performed By: #### D SHARIFA, TSH #### [facility] [address] [place] [address] Dr. Gallo Infante Urea nitrogen/Creatinine [Mass ratio] 19.4 mg/mg Normal [facility] Comment on above: Performed By: #### D SHARIFA, TSH #### [facility] [address] [place] [address] Dr. Gallo Infante TSHon 07-27-2022 TSH 0.887 uIU/mL Normal 0.358-3.740 [facility] Comment on above: Performed By: #### D SHARIFA, TSH #### [facility] [address] [place] [address] Dr. Gallo Infante VITAMIN B12on 07-27-2022 Cobalamin (Vitamin B12) [Mass/Vol] 1205.0 pg/mL Critically high 193.0-986.0 [facility] Comment on above: Performed By: #### D SHARIFA, TSH #### [facility] [address] [place] [address] Dr. Gallo Infante 36on 07-24-2022 36 Approving, but needs appt for additional refills. Normal [facility] Orders Onlyon 07-18-2022 Orders Only [id number] Bertha Pulido 1945 M Date Provider Department Center 07/18/2022 REGAN EDWARD [facility] Family History Family history unknown: Yes Normal [facility] PROTEIN AND CREA RANDOM UR R ATIOon 04-17-2022 Creatinine, Urine 50.8 mg/dL Normal Not Estab. [facility] Comment on above: Performed By: #### D SHARIFA, TSH #### [facility] [address] [place] [address] Dr. Gallo Infante Protein (U) [Mass/Vol] 51.0 mg/dL Normal Not Estab. [facility] Comment on above: Performed By: #### D SHARIFA, TSH #### [facility] [address] [address] [address] Gallo Infante Protein/Creat Ratio 1004 mg/g creat Critically high 0-200 [facility] Comment on above: Performed By: #### Shira SHARIFA, TSH #### [facility] [address] [place] [address] Dr. Gallo Infante PTH INTACTon 04-17-2022 PTH, Intact 42 pg/mL Normal 15-65 [facility] Comment on above: Performed By: #### Shira SHARIFA, TSH #### [facility] [address] [address] [address] Gallo Infante ALBUMINon 04-16-2022 Albumin [Mass/Vol] 3.3 g/dL Critically low 3.4-5.0 [facility] Comment on above: Performed By: #### Shira SHARIFA, TSH #### [facility] [address] [place] [address] Dr. Gallo Infante HEMOGLOBINon 04-16-2022 Hemoglobin (Bld) [Mass/Vol] 13.3 g/dL Critically low 14.0-18.0 [facility] Comment on above: Performed By: #### Shira SHARIFA, TSH #### [facility] [address] [address] [address] Gallo Infante MAGNESIUMon 04-16-2022 Magnesium [Mass/Vol] 2.0 mg/dL Normal 1.8-2.4 [facility] Comment on above: Performed By: #### Shira SHARIFA, TSH #### [facility] [address] [place] [address] Dr. Gallo Infante PHOSPHORUSon 04-16-2022 Phosphate [Mass/Vol] 4.0 mg/dL Normal 2.6-4.7 [facility] Comment on above: Performed By: #### D SHARIFA, TSH #### [facility] [address] [address] [address] Gallo Infante PROF CHEM 8 (BAS METB)on Anion gap [Moles/Vol] 7.9 mmol/L Normal [facility] Comment on above: Performed By: #### D SHARIFA, TSH #### [facility] [address] [address] [address] Gallo Infante Calcium [Mass/Vol] 8.9 mg/dL Normal 8.5-10.1 [place] Comment on above: Performed By: #### D SHARIFA, TSH #### [facility] [address] [address] [address] Gallo Infante Chloride [Moles/Vol] 102 mmol/L Normal 98-107 [facility] Comment on above: Performed By: #### D SHARIFA, TSH #### [facility] [address] [address] [address] Gallo Infante CO2 [Moles/Vol] 30.0 mmol/L Normal 21.0-32.0 [facility] Comment on above: Performed By: #### D SHARIFA, TSH #### [facility] [address] [address] [address] Gallo Infante Creatinine [Mass/Vol] 2.47 mg/dL Critically high 0.70-1.30 [facility] Comment on above: Performed By: #### D SHARIFA, TSH #### [facility] [address] [address] [address] Gallo Infante EGFR-AF TANZANIAN 31 mL/min/1.73m2 Critically low >=60 [facility] Comment on above: Performed By: #### D SHARIFA, TSH #### [facility] [address] [address] [address] Gallo Infante EGFR-NON AF TANZANIAN 26 mL/min/1.73m2 Critically low >=60 [facility] Comment on above: Performed By: #### D SHARIFA, TSH #### [facility] [address] [address] [address] Gallo Infante Glucose [Mass/Vol] 247 mg/dL Critically high 74-106 [facility] Comment on above: Performed By: #### D SHARIFA, TSH #### [facility] [address] [address] [address] Gallo Infante Potassium [Moles/Vol] 3.9 mmol/L Normal 3.5-5.1 [facility] Comment on above: Performed By: #### D SHARIFA, TSH #### [facility] [address] [place] [address] Dr. Gallo Infante Sodium [Moles/Vol] 136 mmol/L Normal 136-145 [place] Comment on above: Performed By: #### D SHARIFA, TSH #### [facility] [address] [place] [address] Dr. Gallo Infante Urea nitrogen [Mass/Vol] 45.0 mg/dL Critically high 7.0-18.0 [facility] Comment on above: Performed By: #### D SHARIFA, TSH #### [facility] [address] [place] [address] Dr. Gallo Infante Urea nitrogen/Creatinine [Mass ratio] 18.2 mg/mg Normal [facility] Comment on above: Performed By: #### D SHARIFA, TSH #### [facility] [address] [place] [address] Dr. Gallo Infante VITAMIN D 25 OHon 04-16-2022 VIT D 25-OH 39.4 ng/mL [facility] Comment on above: Performed By: #### D SHARIFA, TSH #### [facility] [address] [place] [address] Dr. Gallo Infante VIT D RANGES SEE BELOW Normal [facility] Comment on above: Result Comment: <20 ng/mL Vit D deficient 20 - <30 ng/mL Vit D insufficient 30 - 100 ng/mL Vit D sufficient >100 ng/mL Potential Toxicity Performed By: #### D SHARIFA, TSH #### [facility] [address] [place] [address] Dr. Gallo Infante CBC W/DIFFon 02-20-2022 ABS IMM GRANS 0.0 10*3/uL Normal 0.0-0.2 [facility] Comment on above: Performed By: #### 3 1569, , [id number] #### [facility] [address] [place] [address], [facility] ABS NEUTROPHILS 4.6 10*3/uL Normal 1.6-7.6 [facility] Comment on above: Performed By: #### 3 156, , 55432 #### [facility] [address] [facility] [place] [address], [facility] Basophils (Bld) [#/Vol] 0.0 10*3/uL Normal 0.0-0.2 [facility] Comment on above: Performed By: #### 3 156, , 37058 #### [facility] [address] [facility] [place] [address], [facility] Basophils/100 WBC (Bld) 0.5 % Normal 0.0-1.0 T [facility] Comment on above: Performed By: #### 3 1568, , 00989 #### [facility] [address] [place] [address], [facility] Eosinophils (Bld) [#/Vol] 0.2 10*3/uL Normal 0.0-0.5 [facility] Comment on above: Performed By: #### 3 156, , 19771 #### [facility] [address] [facility] [place] [id number], [place] Eosinophils/100 WBC (Bld) 2.6 % Normal 0.0-6.0 [facility] Comment on above: Performed By: #### 3 156, , 65800 #### [facility] [address] [place] [id number], [facility] Erythrocyte distribution width (RBC) [Ratio] 13.1 % Normal 11.5-15.0 [facility] Comment on above: Performed By: #### 3 1569, , 29403 #### [facility] [address] [place] [address], [facility] Hematocrit (Bld) [Volume fraction] 41.2 % Normal 39.0-50.0 [facility] Comment on above: Performed By: #### 3 156, , 34737 #### [facility] [address] [place] [address], [facility] Hemoglobin (Bld) [Mass/Vol] 14.2 g/dL Normal 13.0-17.0 [facility] Comment on above: Performed By: #### 3 156, , 47174 #### [facility] [address] [place] [address], [facility] IMMATURE GRANS 0.3 % Normal 0.0-1.0 [facility] Comment on above: Performed By: #### 3 156, , 99759 #### [facility] [address] [place] [address], [facility] Lymphocytes (Bld) [#/Vol] 2.1 10*3/uL Normal 1.2-4.0 [facility] Comment on above: Performed By: #### 3 156, , 91079 #### [facility] [address] [place] [address], [facility] Lymphocytes/100 WBC (Bld) 27.6 % Normal 20.0-45.0 [facility] Comment on above: Performed By: #### 3 156, , 88066 #### [facility] [address] [place] [address], [facility] MCH (RBC) [Entitic mass] 30.5 pg Normal 27.0-33.0 [facility] Comment on above: Performed By: #### 3 156, , 76936 #### [facility] [address] MCHC (RBC) [Mass/Vol] 34.5 g/dL Normal 32.0-35.0 [facility] Comment on above: Performed By: #### 3 156, , 58208 #### [facility] [address] [place] [address], [facility] MCV (RBC) [Entitic vol] 88.4 fL Normal 82.0-98.0 [facility] Comment on above: Performed By: #### 3 156, , 95424 #### [facility] [address] [place] [address], [facility] Monocytes (Bld) [#/Vol] 0.7 10*3/uL Normal 0.1-1.0 [facility] Comment on above: Performed By: #### 3 1568, , 17090 #### [facility] [address] MONOS 9.5 % Normal 5.0-12.0 [facility] Comment on above: Performed By: #### 3 1568, , 67424 #### [facility] [address] Neutrophils/100 WBC (Bld) 59.5 % Normal 40.0-72.0 [facility] Comment on above: Performed By: #### 3 1568, , 34590 #### [facility] [address] Nucleated RBC/100 WBC (Bld) [Ratio] 0 % Normal 0-0 [facility] Comment on above: Performed By: #### 3 1568, , 11246 #### [facility] [address] [place] [address], [facility] PLAT CNT 149 10*3/uL Low 150-400 [facility] Comment on above: Performed By: #### 3 156, , 67180 #### [facility] [address] [place] [address], [facility] RBC (Bld) [#/Vol] 4.66 10*6/uL Normal 4.20-5.70 [facility] Comment on above: Performed By: #### 3 1569, 30253, 03600 #### [facility] [address] [place] [address], [facility] WBC (Bld) [#/Vol] 7.68 10*3/uL Normal 4.00-10.60 [facility] Comment on above: Performed By: #### 3 1569, 96586, 81893 #### [facility] [address] [facility] [place] [address], [facility] COMP METABOLIC PANELon 02-20 Albumin [Mass/Vol] 3.6 g/dL Normal 3.5-5.7 [facility] Comment on above: Performed By: #### 0 0121 #### [facility] [address] [place] [address], [facility] ALKALINE PHOSPH 122 IU/L High 34-104 [facility] Comment on above: Performed By: #### 0 0121 #### [facility] [address] [place] [address], [facility] ALT [Catalytic activity/Vol] 70 U/L High 7-52 [facility] Comment on above: Performed By: #### 0 0121 #### [facility] [address] [place] [address], [facility] AST [Catalytic activity/Vol] 44 U/L High 13-39 [facility] Comment on above: Performed By: #### 0 0121 #### [facility] [address] [place] [id number], [facility] Bilirubin [Mass/Vol] 0.5 mg/dL Normal 0.3-1.0 [facility] Comment on above: Performed By: #### 0 0121 #### [facility] [address] [place] [address], [facility] Calcium [Mass/Vol] 9.0 mg/dL Normal 8.6-10.3 [facility] Comment on above: Performed By: #### 0 0121 #### [facility] [address] [place] [address], [place] Chloride [Moles/Vol] 99 mmol/L Normal 98-107 [facility] Comment on above: Performed By: #### 0 0121 #### [facility] [address] [place] [address], [place] CO2 [Moles/Vol] 30 mmol/L Normal 21-31 [facility] Comment on above: Performed By: #### 0 0121 #### [facility] [address] [place] [address], [facility] Creatinine [Mass/Vol] 2.80 mg/dL High 0.70-1.30 [facility] Comment on above: Performed By: #### 0 0121 #### [facility] [address] [place] [address], [facility] EGFR 23 ml/min/1.73sq m Abnormal >60 [facility] Comment on above: Result Comment: [facility]'s estimated glomerular filtration rate (eGFR) will no [...] individuals. Performed By: #### 0 0121 #### [facility] [address] [place] [address], [place] Glucose [Mass/Vol] 165 mg/dL High 70-100 [facility] Comment on above: Performed By: #### 0 0121 #### [facility] [address] [place] [address], [place] Potassium [Moles/Vol] 4.2 mmol/L Normal 3.5-5.1 [facility] Comment on above: Performed By: #### 0 0121 #### [facility] [address] [place] [address], [place] Protein [Mass/Vol] 7.2 g/dL Normal 6.0-8.3 [facility] Comment on above: Performed By: #### 0 0121 #### [facility] [address] [place] [address], [place] Sodium [Moles/Vol] 137 mmol/L Normal 136-145 [facility] Comment on above: Performed By: #### 0 0121 #### [facility] [address] [place] [address], [place] Urea nitrogen [Mass/Vol] 44 mg/dL High 7-25 [facility] Comment on above: Performed By: #### 0 0121 #### [facility] [address] [place] [address], [place] ALBUMIN BLOODon 11-21-2021 Albumin [Mass/Vol] 3.3 g/dL Low 3.5-5.7 [facility] Comment on above: Performed By: #### 1 0070, 26147, 93600, 84259, 02860, 57036 #### [facility] [address] [place] [address], [place] BASIC METABOLIC PANELon 11-11 Calcium [Mass/Vol] 8.5 mg/dL Low 8.6-10.3 [facility] Comment on above: Performed By: #### 1 0070, 58625, 12548, 43828, 36444, 05472 #### [facility] [address] [place] [address], [place] Chloride [Moles/Vol] 104 mmol/L Normal 98-107 [facility] Comment on above: Performed By: #### 1 0070, 20058, 12924, 56180, 85394, 77120 #### [facility] [address] [place] [address], [facility] CO2 [Moles/Vol] 27 mmol/L Normal 21-31 [facility] Comment on above: Performed By: #### 1 0070, 50960, 76383, 98130, 06335, 48304 #### [facility] [address] [place] [address], [facility] Creatinine [Mass/Vol] 2.70 mg/dL High 0.70-1.30 [facility] Comment on above: Performed By: #### 1 0070, 80693, 56259, 22528, 04838, 35693 #### [facility] [address] [place] [address], [facility] eGFR- 28 ml/min/1.73sq m Abnormal >60 [facility] Comment on above: Result Comment: Calc ulation may not be valid for patients over 70 years Performed By: #### 1 0070, 34163, 26038, 79571, 76030, 96186 #### [facility] [address] [place] [address], [facility] eGFR- non- 23 ml/min/1.73sq m Abnormal >60 [facility] Comment on above: Result Comment: Calc ulation may not be valid for patients over 70 years Performed By: #### 1 0070, 04175, 28841, 53499, 68998, 38861 #### [facility] [address] [place] [address], [place] Glucose [Mass/Vol] 321 mg/dL High 70-100 [facility] Comment on above: Performed By: #### 1 0070, 10253, 98465, 46665, 60017, 30200 #### [facility] [address] [place] [address], [facility] Potassium [Moles/Vol] 4.3 mmol/L Normal 3.5-5.1 [facility] Comment on above: Performed By: #### 1 0070, 32765, 08174, 42060, 93129, 99325 #### [facility] [address] [place] [address], [facility] Sodium [Moles/Vol] 136 mmol/L Normal 136-145 [facility] Comment on above: Performed By: #### 1 0070, 68957, 04500, 07141, 94666, 39551 #### [facility] [address] [facility] [place] [address], [facility] Urea nitrogen [Mass/Vol] 44 mg/dL High 7-25 [facility] Comment on above: Performed By: #### 1 0070, 49437, 59757, 20827, 00816, 79981 #### [facility] [address] [facility] [place] [address], [facility] CREATININE URINE RANDOMon Creatinine (U) [Mass/Vol] 67.0 mg/dL Normal [facility] Comment on above: Result Comment: Ther e are no established reference values for random urine specimens Performed By: #### 3 1569, 39484, 33759 #### [facility] [address] [facility] [place] [address], [facility] FERRITINon 11-21-2021 Ferritin [Mass/Vol] 157 ng/mL Normal 24-336 [facility] Comment on above: Performed By: #### 1 0070, 25907, 72544, 81860, 69311, 88262 #### [facility] [address] [facility] [place] [address], [facility] HEMOGLOBINon 11-21-2021 Hemoglobin (Bld) [Mass/Vol] 12.1 g/dL Low 13.0-17.0 [facility] Comment on above: Performed By: #### 3 1569, 06165, 87493 #### [facility] [address] [place] [address], [facility] MAGNESIUM BLOODon 11-21-2021 Magnesium [Mass/Vol] 1.8 mg/dL Low 1.9-2.7 [facility] Comment on above: Performed By: #### 1 0070, 08043, 48900, 91269, 07063, 58915 #### [facility] [address] [place] [address], [facility] PHOSPHORUS BLOODon 2 Phosphate [Mass/Vol] 2.8 mg/dL Normal 2.5-5.0 [facility] Comment on above: Performed By: #### 1 0070, 91012, 11665, 69173, 71695, 05551 #### [facility] [address] [facility] [place] [address], [facility] T PROT UR Celia 11-21-2021 U TOTAL PROTEIN 107.2 mg/dL Normal [facility] Comment on above: Result Comment: Ther e are no established reference values for random urine specimens Performed By: #### 3 1569, 64488, 33656 #### [facility] [address] [place] [address], [facility] TIBC- INCLUDES IRONon 2021 FE SATURATION 15 % Low 20-50 [facility] Comment on above: Performed By: #### 1 0070, 76528, 89685, 82628, , 78789 #### [facility] [address] [facility] [place] [address], [facility] Iron [Mass/Vol] 41 ug/dL Low 50-212 [facility] Comment on above: Performed By: #### 1 0070, 59783, 59236, 69044, 75509, 29472 #### [facility] [address] [facility] [place] [address], [facility] TIBC 271 mcg/dL Normal 250-450 [facility] Comment on above: Performed By: #### 1 0070, 41932, 86122, 48962, 17931, 38454 #### [facility] [address] [place] [address], [facility] UIBC 230 mcg/dL Normal 155-355 [facility] Comment on above: Performed By: #### 1 0070, 94856, 59004, 63478, 04294, 70160 #### [facility] [address] [place] [address], [facility] ALBUMINon 09-28-2021 Albumin [Mass/Vol] 2.8 g/dL Critically low 3.4-5.0 e [facility] Comment on above: Performed By: #### P HOS, MG, ALB, BMP #### [facility] [address] [place] [address] Dr. Gallo Infante CREATININE URINEon URINE CREAT 79.37 mg/dL Normal 20.00-300.00 [facility] Comment on above: Performed By: #### C REAU, PROTU #### [facility] [address] [place] [address] Dr. Gallo Infante HEMOGLOBINon 09-28-2021 Hemoglobin (Bld) [Mass/Vol] 12.8 g/dL Critically low 14.0-18.0 [facility] Comment on above: Performed By: #### H GB #### [facility] [address] [place] [address] Dr. Gallo Infante MAGNESIUMon 09-28-2021 Magnesium [Mass/Vol] 2.0 mg/dL Normal 1.6-2.3 [facility] Comment on above: Performed By: #### P HOS, MG, ALB, BMP #### [facility] [address] [place] [address] Dr. Gallo Infante PHOSPHORUSon 09-28-2021 Phosphate [Mass/Vol] 3.9 mg/dL Normal 2.5-4.5 [facility] Comment on above: Performed By: #### P HOS, MG, ALB, BMP #### [facility] [address] [place] [address] Dr. Gallo Infante PROF CHEM 8 (BAS METB)on Anion gap [Moles/Vol] 8.6 mmol/L Normal [facility] Comment on above: Performed By: #### P HOS, MG, ALB, BMP #### [facility] [address] [address] [address] Gallo Infante Calcium [Mass/Vol] 8.3 mg/dL Critically low 8.5-10.1 Th [facility] Comment on above: Performed By: #### P HOS, MG, ALB, BMP #### [facility] [address] [address] [address] Gallo Infante Chloride [Moles/Vol] 103 mmol/L Normal 98-107 [facility] Comment on above: Performed By: #### P HOS, MG, ALB, BMP #### [facility] [address] [place] [address] Dr. Gallo Infante CO2 [Moles/Vol] 28.9 mmol/L Normal 22.0-30.0 [facility] Comment on above: Performed By: #### P HOS, MG, ALB, BMP #### [facility] [address] [address] [address] Gallo Infante Creatinine [Mass/Vol] 2.49 mg/dL Critically high 0.66-1.25 [facility] Comment on above: Performed By: #### P HOS, MG, ALB, BMP #### [facility] [address] [address] [address] Gallo Infante EGFR-AF TANZANIAN 31 mL/min/1.73m2 Critically low >=60 [facility] Comment on above: Performed By: #### P HOS, MG, ALB, BMP #### [facility] [address] [place] [address] Dr. Gallo Infante EGFR-NON AF TANZANIAN 25 mL/min/1.73m2 Critically low >=60 [facility] Comment on above: Performed By: #### P HOS, MG, ALB, BMP #### [facility] [address] [address] [address] Gallo Infante Glucose [Mass/Vol] 197 mg/dL Critically high 74-106 T [facility] Comment on above: Performed By: #### P HOS, MG, ALB, BMP #### [facility] [address] [place] [address] Dr. Gallo Infante Potassium [Moles/Vol] 4.5 mmol/L Normal 3.4-5.0 [facility] Comment on above: Performed By: #### P HOS, MG, ALB, BMP #### [facility] [address] [place] [address] Dr. Gallo Infante Sodium [Moles/Vol] 136 mmol/L Critically low 137-145 Th [facility] Comment on above: Performed By: #### P HOS, MG, ALB, BMP #### [facility] [address] [place] [address] Dr. Gallo Infante Urea nitrogen [Mass/Vol] 42.0 mg/dL Critically high 7.0-18.0 [facility] Comment on above: Performed By: #### P HOS, MG, ALB, BMP #### [facility] [address] [place] [address] Dr. Gallo Infante Urea nitrogen/Creatinine [Mass ratio] 16.9 mg/mg Normal [facility] Comment on above: Performed By: #### P HOS, MG, ALB, BMP #### [facility] [address] [place] [address] Dr. Gallo Infante PROTEIN RAND URINEon 022 UR PROT 166.1 mg/dL Critically high <=12.0 [facility] Comment on above: Performed By: #### C REAU, PROTU #### [facility] [address] [place] [address] Dr. Gallo Infante *URINE CULTUREon 08-22-2021 *URINE CULTURE Clinical Report: (D) Specimen: URINE Collected: 08/22/2021 15:12 Status: Final Last Updated: 08/24/2021 07:56 ISO (Final) >100,000 Cfu/Ml Mixed Gram Positive Yumiko Normal [facility] Comment on above: Performed By: #### 3 1569, 28921, 81084 #### [facility] [address] [place] [address], [facility] HEMOGLOBIN A1Con 08-22-2021 Glucose [Moles/Vol] 203 mmol/L Normal [facility] Comment on above: Performed By: #### 3 1569, 03807, 13221 #### [facility] [address] [place] [address], [facility] HbA1c (Bld) [Mass fraction] 8.7 % High 4.0-6.0 [facility] Comment on above: Performed By: #### 3 1569, 33201, 95906 #### [facility] [address] [place] [address], [facility] UA,MICROSCOPIC REQUIREDon Appearance (U) CLEAR Normal CLEAR [facility] Comment on above: Performed By: #### 3 1569, 37501, 25530 #### [facility] [address] [facility] [place] [address], [facility] Bilirubin Ql (U) Negative Normal NEGATIVE [facility] Comment on above: Performed By: #### 3 1569, 34331, 27947 #### [facility] [address] [facility] [place] [address], [facility] Color (U) YELLOW Normal YELLOW [facility] Comment on above: Performed By: #### 3 1569, 06477, 15474 #### [facility] [address] [facility] [place] [address], [facility] EPIS OCC Normal FEW,OCC,NONE SEEN [facility] Comment on above: Performed By: #### 3 1569, 49728, 15169 #### [facility] [address] [facility] [place] [address], [facility] Glucose Ql (U) 50 mg/dL Abnormal NEGATIVE [facility] Comment on above: Performed By: #### 3 1569, 11495, 99651 #### [facility] [address] [place] [address], [place] Hemoglobin Ql (U) Negative Normal NEGATIVE [facility] Comment on above: Performed By: #### 3 1569, 57896, 67286 #### [facility] [address] [place] [address], [facility] KETONE Negative Normal NEGATIVE [facility] Comment on above: Performed By: #### 3 1569, 34898, 73516 #### [facility] [address] [facility] [place] [address], [facility] LEUK EDUARD Negative Normal NEGATIVE [facility] Comment on above: Performed By: #### 3 1569, 28470, 94526 #### [facility] [address] [place] [address], [facility] MUCUS THREADS OCC Abnormal NONE SEEN [facility] Comment on above: Performed By: #### 3 1569, , 17926 #### [facility] [address] [place] [address], [facility] Nitrite Ql (U) Negative Normal NEGATIVE [facility] Comment on above: Performed By: #### 3 1569, 20316, 25857 #### [facility] [address] [place] [address], [facility] pH (U) 5.0 [pH] Normal 5.0-8.0 [facility] Comment on above: Performed By: #### 3 1569, 92754, 66317 #### [facility] [address] [place] [address], [facility] Protein Ql (U) 100 mg/dL Abnormal NEGATIVE [facility] Comment on above: Performed By: #### 3 1569, 73744, 73812 #### [facility] [address] [place] [address], [facility] RBC NONE SEEN Normal NONE SEEN [facility] Comment on above: Performed By: #### 3 1569, 22502, 48884 #### [facility] [address] [facility] SPEC GRAV 1.012 Low 1.015-1.020 [facility] Comment on above: Performed By: #### 3 1569, 71351, 39544 #### [facility] [address] WBC UA 0-2 Abnormal NONE SEEN [facility] Comment on above: Performed By: #### 3 1569, 32394, 83786 #### [facility] [address] Otolaryngology Office/Clinic Noteon 08-20-2021 Otolaryngology Office/Clinic [...] Joya Burgess PA-C 08/23/21 09:50 EST Normal [facility] Otolaryngology Office/Clinic Noteon 07-31-2021 Otolaryngology Office/Clinic Note [...] Ryan Bartlett MD 07/31/21 11:16 EST Normal [facility] *URINE CULTUREon 07-24-2021 *URINE CULTURE Clinical Report: (D) Specimen: URINE Collected: 07/24/2021 00:00 Status: Final Last Updated: 07/26/2021 08:31 ISO (Final) Klebsiella (Enterobacter) aerogenes >100,000 Cfu/Ml ISOLATE: Klebsiella (Enterobacter) aerogenes --- NICK (mcg/ml) AMP./SULBAC (AMS) 16/8 Resistant AMPICILLIN (AM) >16 Resistant AZTREONAM (AZM) <=2 Susceptible CEFAZOLIN (CZ) >16 Resistant CEFTRIAXONE (ANIMAL ASSISTED THERAPIST) <=1 Susceptible CIPROFLOXACIN (CIP) <=0.25 Susceptible GENTAMICIN (GM) <=2 Susceptible NITROFURANTOIN (FT) >64 Resistant PIP/TAZO (TZP) 8/4 Susceptible TOBRAMYCIN (TOB) <=2 Susceptible TRIMETH/SULFA (SXT) <=0.5/9.5 Susceptible Normal [facility] Comment on above: Performed By: #### 3 1569, 35643, 61692 #### [facility] [address] [place] [address], [facility] UA,MICROSCOPIC REQUIREDon Appearance (U) TURBID Abnormal CLEAR [facility] Comment on above: Performed By: #### 3 1569, 88914, 62767 #### [facility] [address] [place] [address], [facility] Bilirubin Ql (U) Negative Normal NEGATIVE [facility] Comment on above: Performed By: #### 3 1569, 90189, 34501 #### [facility] [address] [place] [address], [facility] Color (U) CHE Abnormal YELLOW [facility] Comment on above: Performed By: #### 3 1569, 19745, 36276 #### [facility] [address] [place] [address], [place] EPIS NONE SEEN Normal FEW,OCC,NONE SEEN [facility] Comment on above: Performed By: #### 3 1569, 93268, 43824 #### [facility] [address] [place] [address], [facility] Glucose Ql (U) Negative Normal NEGATIVE [facility] Comment on above: Performed By: #### 3 1569, 60715, 87003 #### [facility] [address] [place] [address], [facility] Hemoglobin Ql (U) Negative Normal NEGATIVE [facility] Comment on above: Performed By: #### 3 1569, 46595, 87593 #### [facility] [address] [facility] [place] [address], [facility] KETONE Negative Normal NEGATIVE [facility] Comment on above: Performed By: #### 3 1569, 16273, 74805 #### [facility] [address] [facility] [place] [address], [facility] LEUK EDUARD MODERATE Abnormal NEGATIVE [facility] Comment on above: Performed By: #### 3 1569, 01743, 49078 #### [facility] [address] [place] [address], [facility] Nitrite Ql (U) Negative Normal NEGATIVE [facility] Comment on above: Performed By: #### 3 1569, 76536, 77680 #### [facility] [address] [facility] [place] [address], [facility] pH (U) 5.0 [pH] Normal 5.0-8.0 [facility] Comment on above: Performed By: #### 3 1569, 35969, 87907 #### [facility] [address] [facility] [place] [address], [facility] Protein Ql (U) >=500 Abnormal NEGATIVE [facility] Comment on above: Performed By: #### 3 1569, 14285, 55409 #### [facility] [address] [place] [address], [facility] RBC NONE SEEN Normal NONE SEEN [facility] Comment on above: Performed By: #### 3 1569, 23948, 58540 #### [facility] [address] [place] [address], [facility] SPEC GRAV 1.011 Low 1.015-1.020 [facility] Comment on above: Performed By: #### 3 1569, 20642, 01314 #### [facility] [address] [place] [address], [facility] WBC UA >100 Abnormal NONE SEEN [facility] Comment on above: Performed By: #### 3 1569, 67433, 39109 #### [facility] [address] PROSTATE SPEC AG FREE % ILon 07-20-2021 FREE PSA 0.3 ug/L Normal [facility] [place] Normal [facility] Comment on above: Result Comment: Test Performed by [facility] [address] [place] [address] - Released 07/23/2021 14:16 Result changed by IF on 07/23/2021 14:16. The previous value was Test Performed by [facility] [address] [place] [address] [phone].. PROSTATIC SPEC AG 0.7 ug/L Normal 0.0-4.0 [facility] Comment on above: Result Comment: Siemens Tapdaqulite 2000 immunometric chemiluminescent assay is used. Results obtained with different assay methods or instruments cannot be used interchangeably. PSA PERCENT FREE 42.9 % Normal [facility] Comment on above: Result Comment: In patients [...] Calcium [Mass/Vol] 8.4 mg/dL Low 8.6-10.3 [facility] Comment on above: Performed By: #### 3 1569, 32344, 17405 #### [facility] [address] [place] [address], [place] Chloride [Moles/Vol] 107 mmol/L Normal 98-107 [facility] Comment on above: Performed By: #### 3 1569, 03027, 38548 #### [facility] [address] [place] [address], [place] CO2 [Moles/Vol] 22 mmol/L Normal 21-31 [facility] Comment on above: Performed By: #### 3 1569, 67236, 43980 #### [facility] [address] [place] [address], [place] Creatinine [Mass/Vol] 2.26 mg/dL High 0.70-1.30 [facility] Comment on above: Performed By: #### 3 1569, 89236, 38078 #### [facility] [address] [place] [address], [place] eGFR- 34 ml/min/1.73sq m Abnormal >60 [facility] Comment on above: Result Comment: Calc ulation may not be valid for patients over 70 years Performed By: #### 3 1569, 29178, 50366 #### [facility] [address] [place] [address], [place] eGFR- non- 28 ml/min/1.73sq m Abnormal >60 [facility] Comment on above: Result Comment: Calc ulation may not be valid for patients over 70 years Performed By: #### 3 1569, 83779, 03087 #### [facility] [address] [place] [address], [place] Glucose [Mass/Vol] 250 mg/dL High 70-100 [facility] Comment on above: Performed By: #### 3 156, , 30762 #### [facility] [address] [place] [address], [facility] Potassium [Moles/Vol] 4.1 mmol/L Normal 3.5-5.1 [facility] Comment on above: Performed By: #### 3 156, , 91830 #### [facility] [address] Sodium [Moles/Vol] 137 mmol/L Normal 136-145 [facility] Comment on above: Performed By: #### 3 1568, , 07832 #### [facility] [address] Urea nitrogen [Mass/Vol] 38 mg/dL High 7-25 [facility] Comment on above: Performed By: #### 3 1568, , 46775 #### [facility] [address] CBC W/DIFFon 06-20-2021 ABS IMM GRANS 0.0 10*3/uL Normal 0.0-0.2 [facility] Comment on above: Performed By: #### 3 1568, , 30860 #### [facility] [address] ABS NEUTROPHILS 6.5 10*3/uL Normal 1.6-7.6 [facility] Comment on above: Performed By: #### 3 1568, , 51423 #### [facility] [address] [place] [address], [facility] Basophils (Bld) [#/Vol] 0.1 10*3/uL Normal 0.0-0.2 [facility] Comment on above: Performed By: #### 3 156, 81364, 60990 #### [facility] [address] [place] [address], [facility] Basophils/100 WBC (Bld) 0.7 % Normal 0.0-1.0 T [facility] Comment on above: Performed By: #### 3 156, , 82529 #### [facility] [address] [place] [address], [facility] Eosinophils (Bld) [#/Vol] 0.3 10*3/uL Normal 0.0-0.5 [facility] Comment on above: Performed By: #### 3 1568, , 20270 #### [facility] [address] [place] [id number], [facility] Eosinophils/100 WBC (Bld) 2.6 % Normal 0.0-6.0 [facility] Comment on above: Performed By: #### 3 1568, , 11280 #### [facility] [address] [place] [id number], [facility] Erythrocyte distribution width (RBC) [Ratio] 14.3 % Normal 11.5-15.0 [facility] Comment on above: Performed By: #### 3 1568, , 89718 #### [facility] [address] [place] [address], [facility] Hematocrit (Bld) [Volume fraction] 35.8 % Low 39.0-50.0 [facility] Comment on above: Performed By: #### 3 1568, , 24458 #### [facility] [address] [place] [address], [place] Hemoglobin (Bld) [Mass/Vol] 11.6 g/dL Low 13.0-17.0 [facility] Comment on above: Performed By: #### 3 156, , 18654 #### [facility] [address] [place] [address], [place] IMMATURE GRANS 0.4 % Normal 0.0-1.0 [facility] Comment on above: Performed By: #### 3 156, , 19907 #### [facility] [address] [place] [address], [facility] Lymphocytes (Bld) [#/Vol] 1.7 10*3/uL Normal 1.2-4.0 [facility] Comment on above: Performed By: #### 3 156, , 02692 #### [facility] [address] [place] [address], [facility] Lymphocytes/100 WBC (Bld) 17.9 % Low 20.0-45.0 [facility] Comment on above: Performed By: #### 3 1568, , 80339 #### [facility] [address] [facility] MCH (RBC) [Entitic mass] 27.8 pg Normal 27.0-33.0 [facility] Comment on above: Performed By: #### 3 1568, , 05625 #### [facility] [address] [facility] [place] [address], [facility] MCHC (RBC) [Mass/Vol] 32.4 g/dL Normal 32.0-35.0 [facility] Comment on above: Performed By: #### 3 1568, , 10381 #### [facility] [address] [facility] [place] [address], [facility] MCV (RBC) [Entitic vol] 85.9 fL Normal 82.0-98.0 T he [facility] Comment on above: Performed By: #### 3 156, , 04780 #### [facility] [address] [facility] [place] [address], [facility] Monocytes (Bld) [#/Vol] 0.9 10*3/uL Normal 0.1-1.0 [facility] Comment on above: Performed By: #### 3 156, , 45111 #### [facility] [address] [place] [address], [place] MONOS 9.0 % Normal 5.0-12.0 [facility] Comment on above: Performed By: #### 3 156, , 76811 #### [facility] [address] [place] [address], [facility] Neutrophils/100 WBC (Bld) 69.4 % Normal 40.0-72.0 [facility] Comment on above: Performed By: #### 3 156, , 02287 #### [facility] [address] [place] [id number], [facility] Nucleated RBC/100 WBC (Bld) [Ratio] 0 % Normal 0-0 [facility] Comment on above: Performed By: #### 3 1568, , 98969 #### [facility] [address] [place] [id number], [place] PLAT CNT 182 10*3/uL Normal 150-400 [facility] Comment on above: Performed By: #### 3 1568, , 11499 #### [facility] [address] [facility] [place] [id number], [facility] RBC (Bld) [#/Vol] 4.17 10*6/uL Low 4.20-5.70 [facility] Comment on above: Performed By: #### 3 1568, , 20604 #### [facility] [address] [place] [address], [place] WBC (Bld) [#/Vol] 9.44 10*3/uL Normal 4.00-10.60 [facility] Comment on above: Performed By: #### 3 1568, , 23096 #### [facility] [address] [place] [id number], [facility] MAGNESIUM BLOODon 06-20-2021 Magnesium [Mass/Vol] 1.9 mg/dL Normal 1.9-2.7 [facility] Comment on above: Performed By: #### 3 1569, 46193, 89404 #### [facility] [address] [facility] TSH3 WITH REFLEX FT4on 06-20 TSH 3RD GENERATION 0.68 uIU/mL Normal 0.34-5.60 [facility] Comment on above: Performed By: #### 3 1569, 82195, 63253 #### [facility] [address] CBC Auto DifferentialOrdered By: Maldonado Wilson on 05-08-2021 Absolute Eos # 0.16 [employer] [facility] Work Phone: Absolute Immature Granulocyte 0.05 [facility] Work Phone: Absolute Lymph # 1.64 [employer] [facility] Work Phone: Absolute Holt # 0.79 [employer] Work Phone: Basophils (Bld) [#/Vol] 0.04 10*3/uL [facility] Work Phone: Basophils/100 WBC (Bld) 1 % 0 - 2 % [facility] Work Phone: Differential Type NOT REPORTED [facility] Work Phone: Eosinophils/100 WBC (Bld) 2 % 1 - 4 % [facility] Work Phone: Hematocrit (Bld) [Volume fraction] 38.0 % Low 40.7 - 50.3 % [facility] Work Phone: Hemoglobin.gastrointest inal spec 1 Ql (Stl) 12.0 g/dL Low 13.0 - 17.0 g/dL [employer] Phone: Immature granulocytes/100 WBC (Bld) 1 % High 0 [facility] Work Phone: Interpretation and review of laboratory results Abnormal [facility] Work Phone: Lymphocytes/100 WBC (Bld) 20 % Low 24 - 43 % [employer] Phone: MCH (RBC) [Entitic mass] 28.1 pg 25.2 - 33.5 pg [employer] Phone: MCHC (RBC) [Mass/Vol] 31.6 g/dL 28.4 - 34.8 g/dL [employer] Phone: MCV (RBC) [Entitic vol] 89.0 fL 82.6 - 102.9 fL [employer] Phone: Monocytes/100 WBC (Bld) 9 % 3 - 12 % M Dr. Z Work Phone: NRBC Automated 0.0 0.0 per 100 WBC [employer] Phone: Platelet distribution width (Bld) [Ratio] 13.7 % 11.8 - 14.4 % [employer] Phone: Platelet Estimate NOT REPORTED [employer] Phone: Platelet mean volume (Bld) [Entitic vol] 11.0 fL 8.1 - 13.5 fL [employer] Phone: Platelets (Bld) [#/Vol] 182 10*3/uL [employer] Phone: RBC (Bld) [#/Vol] 4.27 10*6/uL 4.21 - 5.7 7 m/uL [employer] Phone: RBC (Bld) [#/Vol] NOT REPORTED [employer] Phone: Segmented neutrophils/100 WBC (Bld) 67 % High 36 - 65 % [employer] Phone: Segs Absolute 5.70 [employer] Work Phone: WBC (Bld) [#/Vol] 8.4 10*3/uL [facility] Work Phone: WBC (Bld) [#/Vol] NOT REPORTED [facility] Work Phone: [facility] Work Phone: Microscopic UrinalysisOrdere d By: Maldonado Wilson on 05-08-2021 - [facility] Work Phone: Amorphous, UA NOT REPORTED None [facility] Work Phone: Bacteria, UA 4+ Abnormal None [facility] Work Phone: Casts UA NOT REPORTED /LPF [facility] Work Phone: Crystals, UA NOT REPORTED None /HPF [facility] Work Phone: Epithelial Cells UA 0 TO 2 [facility] Work Phone: Interpretation and review of laboratory results Abnormal [facility] Work Phone: Mucus, UA NOT REPORTED None [facility] Work Phone: Other Observations UA NOT REPORTED NOT REQ. M [facility] Work Phone: RBC, UA 5 TO 10 [facility] Work Phone: Renal Epithelial, UA NOT REPORTED 0 /HPF [facility] Work Phone: Trichomonas, UA NOT REPORTED None [facility] Work Phone: WBC, UA GREATER THAN 100 [facility] Work Phone: Yeast, UA NOT REPORTED None [facility] Work Phone: [facility] Work Phone: UrinalysisOrdered By: Maldonado Wilson on 05-08-2021 Bilirubin Urine Negative NEGATIVE [facility] Work Phone: Color, UA Yellow Yellow [facility] Work Phone: Glucose, Ur 2+ Abnormal NEGATIVE [facility] Work Phone: Interpretation and review of laboratory results Abnormal [facility] Work Phone: Ketones Ql (U) Negative NEGATIVE [facility] Work Phone: Leukocyte esterase Test strip Ql (U) LARGE Abnormal NEGATIVE [facility] Work Phone: Nitrite, Urine Negative NEGATIVE [facility] Work Phone: pH, UA 6.0 [facility] Work Phone: Protein, UA 2+ Abnormal NEGATIVE [facility] Work Phone: Specific [place], UA 1.020 [facility] Work Phone: Turbidity UA Cloudy Abnormal Clear [facility] Work Phone: Urinalysis Comments NOT REPORTED [facility] Work Phone: Urine Hgb 1+ Abnormal NEGATIVE [facility] Work Phone: Urobilinogen, Urine Normal Normal [facility] Work Phone: [facility] Work Phone: BONE MARROW SCREENon 04-26- 021 BONE MARROW SCR SEE BONE MARROW SPECIAL REPORT FORM Normal [facility] Comment on above: Performed By: #### 3 1569, 60366, 90718 #### [address] BIOPSY BONE MARROWon 04-13 CT BIOPSY BONE MARROW [facility] Department of Radiology [address] [place] [id number] Patient Name: BERTHA PULIDO : 1945 Sex: M Age: Race: White Pt. 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 Consent was obtained. Timeout: [place] protocol timeout verification performed. MEDICATIONS: 2 mg [...] report. Electronically signed: Satish Camilo. Transcribed by: [email or web address], User Resident: RICHAR SIMPSON Electronically Signed by: SATISH CAMILO @ 04/26/2021 02:52 PM I personally read this/these film(s) with this resident Normal [facility] HEMATOLOGY COMPLETE [facility]ATI [facility] RESULT Results faxed to ordering physician and sent to HIM Normal [facility] Comment on above: Result Comment: Test performed by [facility] [employer] * [address] [place] [address], [address] * [place], [place] * [phone] Crystal Attacher: Branden Echols M.D. RESULTS FAXED TO [phone] Performed By: #### 3 1569, 28033, 94682 #### [facility] [address] [place] [address], [facility] APTTon 04-23-2021 aPTT Coag (Bld) [Time] 30.9 s Normal 25.0-35.0 Th e [facility] Comment on above: Result Comment: ALL RESULTS [...] PURPOSE. Performed By: #### 3 156, , 33630 #### [facility] [address] CBC W/DIFFon 04-23-2021 ABS IMM GRANS 0.0 10*3/uL Normal 0.0-0.2 [facility] Comment on above: Performed By: #### 3 156, , 69029 #### [facility] [address] [place] [address], [facility] ABS NEUTROPHILS 6.5 10*3/uL Normal 1.6-7.6 [facility] Comment on above: Performed By: #### 3 1568, , 15964 #### [facility] [address] [place] [address], [facility] Basophils (Bld) [#/Vol] 0.1 10*3/uL Normal 0.0-0.2 [facility] Comment on above: Performed By: #### 3 1568, , 81136 #### [facility] [address] [place] [address], [facility] Basophils/100 WBC (Bld) 0.5 % Normal 0.0-1.0 T [facility] Comment on above: Performed By: #### 3 1568, , 82536 #### [facility] [address] [place] [address], [facility] Eosinophils (Bld) [#/Vol] 0.1 10*3/uL Normal 0.0-0.5 [facility] Comment on above: Performed By: #### 3 1568, , 39882 #### [facility] [address] [place] [address], [facility] Eosinophils/100 WBC (Bld) 1.5 % Normal 0.0-6.0 [facility] Comment on above: Performed By: #### 3 1568, , 36686 #### [facility] [address] [place] [address], [facility] Erythrocyte distribution width (RBC) [Ratio] 14.5 % Normal 11.5-15.0 [facility] Comment on above: Performed By: #### 3 156, , 53113 #### [facility] [address] [place] [id number], [facility] Hematocrit (Bld) [Volume fraction] 35.1 % Low 39.0-50.0 [facility] Comment on above: Performed By: #### 3 156, , 00779 #### [facility] [address] [place] [address], [facility] Hemoglobin (Bld) [Mass/Vol] 11.8 g/dL Low 13.0-17.0 [facility] Comment on above: Performed By: #### 3 1568, , 04339 #### [facility] [address] [place] [address], [facility] IMMATURE GRANS 0.4 % Normal 0.0-1.0 [facility] Comment on above: Performed By: #### 3 1568, , 46439 #### [facility] [address] [place] [address], [facility] Lymphocytes (Bld) [#/Vol] 2.1 10*3/uL Normal 1.2-4.0 [facility] Comment on above: Performed By: #### 3 1568, , 97452 #### [facility] [address] [place] [address], [facility] Lymphocytes/100 WBC (Bld) 21.6 % Normal 20.0-45.0 [facility] Comment on above: Performed By: #### 3 156, , 32670 #### [facility] [address] [place] [id number], [facility] MCH (RBC) [Entitic mass] 28.3 pg Normal 27.0-33.0 [facility] Comment on above: Performed By: #### 3 156, , 69411 #### [facility] [address] MCHC (RBC) [Mass/Vol] 33.6 g/dL Normal 32.0-35.0 [facility] Comment on above: Performed By: #### 3 156, , 86514 #### [facility] [address] MCV (RBC) [Entitic vol] 84.2 fL Normal 82.0-98.0 T [facility] Comment on above: Performed By: #### 3 156, , 11221 #### [facility] [address] [facility] Monocytes (Bld) [#/Vol] 0.8 10*3/uL Normal 0.1-1.0 [facility] Comment on above: Performed By: #### 3 1568, , 63128 #### [facility] [address] MONOS 8.6 % Normal 5.0-12.0 [facility] Comment on above: Performed By: #### 3 156, , 27088 #### [facility] [address] Neutrophils/100 WBC (Bld) 67.4 % Normal 40.0-72.0 [facility] Comment on above: Performed By: #### 3 1568, , 00744 #### [facility] [address] Nucleated RBC/100 WBC (Bld) [Ratio] 0 % Normal 0-0 [facility] Comment on above: Performed By: #### 3 156, , 10575 #### [facility] [address] [place] [address], [facility] PLAT CNT 150 10*3/uL Normal 150-400 [facility] Comment on above: Performed By: #### 3 1569, 47838, 00951 #### [facility] [address] [place] [address], [facility] RBC (Bld) [#/Vol] 4.17 10*6/uL Low 4.20-5.70 [facility] Comment on above: Performed By: #### 3 1569, 50396, 27976 #### [facility] [address] [place] [address], [facility] WBC (Bld) [#/Vol] 9.64 10*3/uL Normal 4.00-10.60 [facility] Comment on above: Performed By: #### 3 1569, 80990, 34955 #### [facility] [address] [place] [address], [facility] COMP METABOLIC PANELon 04-23 ALBUMIN CANCELED Normal 3.5-5.7 [facility] Comment on above: Order Comment: DR. Delores RODRIGUEZ LIKE A REDRAW TO CONFIRM RESULTS PER CALL WITH SEBAS TSE ON05.03.21. FAXED OUTPATIENT REDRAW SLIP TO [facility]. Result Comment: The released value 3.5 was canceled by [email or web address] on 04/24/2021 11:48 Performed By: #### 3 1569, 44120, 45019 #### [facility] [address] [place] [id number], [facility] ALKALINE PHOSPH CANCELED Normal 34-104 [facility] Comment on above: Order Comment: DR. Delores RODRIGUEZ LIKE A REDRAW TO CONFIRM RESULTS PER CALL WITH SEBAS TSE ON05.03.21. FAXED OUTPATIENT REDRAW SLIP TO [facility]. Result Comment: The released value 113 was canceled by [email or web address] on 04/24/2021 11:48 Performed By: #### 3 1569, 72782, 87097 #### [facility] [address] [place] [address], [facility] ALT (SGPT) CANCELED Normal 7-52 [facility] Comment on above: Order Comment: DR. Delores RODRIGUEZ LIKE A REDRAW TO CONFIRM RESULTS PER CALL WITH SEBAS TSE ON05.03.21. FAXED OUTPATIENT REDRAW SLIP TO [facility]. Result Comment: The released value 18 was canceled by [email or web address] on 04/24/2021 11:48 Performed By: #### 3 1569, 28343, 53339 #### [facility] [address] [place] [address], [facility] AST (SGOT) CANCELED Normal 13-39 [facility] Comment on above: Order Comment: DR. Delores RODRIGUEZ LIKE A REDRAW TO CONFIRM RESULTS PER CALL WITH SEBAS TSE ON05.03.21. FAXED OUTPATIENT REDRAW SLIP TO [facility]. Result Comment: The released value 15 was canceled by [email or web address] on 04/24/2021 11:48 Performed By: #### 3 1569, 56735, 65120 #### [facility] [address] [place] [address], [facility] CALCIUM CANCELED Normal 8.6-10.3 [facility] Comment on above: Order Comment: DR. Delores RODRIGUEZ LIKE A REDRAW TO CONFIRM RESULTS PER CALL WITH SEBAS TSE 05.03.21. FAXED OUTPATIENT REDRAW SLIP TO [facility]. Result Comment: The released value 8.8 was canceled by [email or web address] on 04/24/2021 11:48 Performed By: #### 3 1569, 88884, 33703 #### [facility] [address] [place] [address], [facility] CARBON DIOXIDE CANCELED Normal 21-31 [facility] Comment on above: Order Comment: DR. Delores RODRIGUEZ LIKE A REDRAW TO CONFIRM RESULTS PER CALL WITH SEBAS TSE 05.03.21. FAXED OUTPATIENT REDRAW SLIP TO [facility]. Result Comment: The released value 21 was canceled by [email or web address] on 04/24/2021 11:48 Performed By: #### 3 1569, 61340, 64631 #### [facility] [address] [place] [address], [facility] CHLORIDE CANCELED Normal 98-107 [facility] Comment on above: Order Comment: DR. Delores RODRIGUEZ LIKE A REDRAW TO CONFIRM RESULTS PER CALL WITH SEBAS TSE ON05.03.21. FAXED OUTPATIENT REDRAW SLIP TO [facility]. Result Comment: The released value 103 was canceled by [email or web address] on 04/24/2021 11:48 Performed By: #### 3 1569, 52352, 22859 #### [facility] [address] [place] [address], [facility] CREATININE CANCELED Normal 0.70-1.30 [facility] Comment on above: Order Comment: DR. Delores RODRIGUEZ LIKE A REDRAW TO CONFIRM RESULTS PER CALL WITH SEBAS TSE ON05.03.21. FAXED OUTPATIENT REDRAW SLIP TO [facility]. Result Comment: The released value 2.79 was canceled by [email or web address] on 04/24/2021 11:48 Performed By: #### 3 1569, 09348, 14329 #### [facility] [address] [place] [address], [facility] eGFR- CANCELED Normal >60 Th e [facility] Comment on above: Order Comment: DR. Delores RODRIGUEZ LIKE A REDRAW TO CONFIRM RESULTS PER CALL WITH SEBAS TSE 05.03.21. FAXED OUTPATIENT REDRAW SLIP TO [facility]. Result Comment: Calc ulation may not be valid for patients over 70 years The released value 27 was canceled by [email or web address] on 04/24/2021 11:48 Performed By: #### 3 1569, 54275, 20319 #### [facility] [address] [place] [address], [facility] eGFR- non- CANCELED Normal >60 [facility] Comment on above: Order Comment: DR. Delores RODRIGUEZ LIKE A REDRAW TO CONFIRM RESULTS PER CALL WITH SEBAS TSE ON05.03.21. FAXED OUTPATIENT REDRAW SLIP TO [facility]. Result Comment: Calc ulation may not be valid for patients over 70 years The released value 22 was canceled by [email or web address] on 04/24/2021 11:48 Performed By: #### 3 1569, 97653, 72173 #### [facility] [address] [place] [address], [facility] GLUCOSE CANCELED Normal 70-100 [facility] Comment on above: Order Comment: DR. Delores RODRIGUEZ LIKE A REDRAW TO CONFIRM RESULTS PER CALL WITH SEBAS TSE ON05.03.21. FAXED OUTPATIENT REDRAW SLIP TO [facility]. Result Comment: The released value 201 was canceled by [email or web address] on 04/24/2021 11:48 Performed By: #### 3 1569, 11162, 67562 #### [facility] [address] [place] [address], [place] POTASSIUM CANCELED Normal 3.5-5.1 [facility] Comment on above: Order Comment: DR. Delores RODRIGUEZ LIKE A REDRAW TO CONFIRM RESULTS PER CALL WITH SEBAS TSE ON05.03.21. FAXED OUTPATIENT REDRAW SLIP TO [facility]. Result Comment: The released value 3.9 was canceled by [email or web address] on 04/24/2021 11:48 Performed By: #### 3 1569, 63651, 24932 #### [facility] [address] [place] [address], [place] SODIUM CANCELED Normal 136-145 [facility] Comment on above: Order Comment: DR. Delores RODRIGUEZ LIKE A REDRAW TO CONFIRM RESULTS PER CALL WITH SEBAS TSE ON05.03.21. FAXED OUTPATIENT REDRAW SLIP TO [facility]. Result Comment: The released value 140 was canceled by [email or web address] on 04/24/2021 11:48 Performed By: #### 3 1569, 14489, 62787 #### [facility] [address] [place] [address], [facility] TOTAL BILI CANCELED Normal 0.3-1.0 [facility] Comment on above: Order Comment: DR. Delores RODRIGUEZ LIKE A REDRAW TO CONFIRM RESULTS PER CALL WITH SEBAS TSE ON05.03.21. FAXED OUTPATIENT REDRAW SLIP TO [facility]. Result Comment: The released value 0.5 was canceled by [email or web address] on 04/24/2021 11:48 Performed By: #### 3 1569, 25513, 46554 #### [facility] [address] [place] [address], [facility] TOTAL PROTEIN CANCELED Normal 6.0-8.3 [facility] Comment on above: Order Comment: DR. Delores RODRIGUEZ LIKE A REDRAW TO CONFIRM RESULTS PER CALL WITH SEBAS TSE ON05.03.21. FAXED OUTPATIENT REDRAW SLIP TO [facility]. Result Comment: The released value 7.1 was canceled by [email or web address] on 04/24/2021 11:48 Performed By: #### 3 1569, 06664, 41303 #### [facility] [address] [place] [address], [facility] UREA NITROGEN CANCELED Normal 7-25 [facility] Comment on above: Order Comment: DR. Delores RODRIGUEZ LIKE A REDRAW TO CONFIRM RESULTS PER CALL WITH SEBAS TSE 05.03.21. FAXED OUTPATIENT REDRAW SLIP TO [facility]. Result Comment: The released value 45 was canceled by [email or web address] on 04/24/2021 11:48 Performed By: #### 3 1569, 12788, 34824 #### [facility] [address] [place] [address], [facility] IMMUNOFIXATION BLOODon 04-23 IgA [Mass/Vol] 527 mg/dL High 60-413 [facility] Comment on above: Performed By: #### 3 1569, 87351, 25850 #### [facility] [address] [place] [address], [facility] IgG [Mass/Vol] 1790 mg/dL High 591-1540 [facility] Comment on above: Performed By: #### 3 1569, 51033, 52717 #### [facility] [address] [place] [id number], [facility] IgM [Mass/Vol] 112 mg/dL Normal 54-285 [facility] Comment on above: Performed By: #### 3 1569, 73432, 39923 #### [facility] [address] [place] [address], 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 See separate report. Performed By: #### 3 1569, 46117, 39905 #### [facility] [address] [facility] [place] [address], [facility] PROTEIN ELECT Nikos 04-23-2021 Protein [Mass/Vol] 6.8 g/dL Normal 6.0-8.3 [facility] Comment on above: Performed By: #### 3 1569, 53857, 01521 #### [facility] [address] [place] [address], [facility] PROTEIN ELECT Normal [facility] Comment on above: Result Comment: Hypo albuminemia is seen. This may be dilutional (from I.V. fluids) or nutritional in origin. There is a diffuse (polyclonal) gammopathy. SEE SEPARATE REPORT Performed By: #### 3 1569, 46279, 95005 #### [facility] [address] [facility] [place] [address], [facility] PROTHROMBIN TIMEon 1 INR Coag (PPP) [Relative time] 1.30 {INR} High 0.91-1.16 [facility] Comment on above: Result Comment: ACCC P [...] CHEST 1995;108:[id number]-246S. Performed By: #### 3 1569, [id number], [id number] #### [facility] [address] PT Coag (PPP) [Time] 16.2 s High 12.3-14.8 [facility] Comment on above: Result Comment: ALL RESULTS MUST BE INTERPRETED WITH RESPECT TO BLOOD DRAWING ARTIFACT OR DILUTION ERROR OF ANTICOAGULANT AT THE TIME OF SAMPLING. Performed By: #### 3 1569, 26430, 92483 #### [facility] [address] SERUM FREE LIGHT CHAINS ILon 04-23-2021 FREE KAPPA LIGHT CHAINS 9.73 mg/dL High 0.37-1.94 T [facility] FREE KAPPA/LAMBDA RATIO 1.51 Normal 0.26-1.65 T [facility] FREE LAMBDA LIGHT CHAINS 6.45 mg/dL High 0.57-2.63 [facility] [place] Normal [facility] Comment on above: Result Comment: Test Performed by [facility] [address] [place] [address] - Released 04/23/2021 18:48 Result changed by IF on 04/23/2021 18:48. The previous value was Test Performed by [facility] [address] [place], [place] [id number] [phone] SKELETAL SURVEYon 04-20-2021 SKELETAL SURVEY [facility] Department of Radiology [address] [place] [address] Patient Name: BERTHA PULIDO : 1945 Sex: M Age: Race: White Pt. 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 TECHNIQUE: Frontal and lateral views of the skull, chest, abdomen, and spine, bilateral oblique views of the ribs, and frontal views of the upper and lower extremities obtained according to the guidelines for the [employer] FINDINGS: Bowel: No lytic [...] days. Electronically signed: Teressa Morrissey. Transcribed by: [email or web address], User Resident: Electronically Signed by: TERESSA MORRISSEY @ 04/20/2021 02:30 PM Normal [facility] BASIC METABOLIC PANELon - Calcium [Mass/Vol] 8.8 mg/dL Normal 8.6-10.3 [facility] Comment on above: Performed By: #### 3 1569, 50918, 53922 #### [facility] [address] [place] [address], [place] Chloride [Moles/Vol] 104 mmol/L Normal 98-107 [facility] Comment on above: Performed By: #### 3 1569, 52546, 47689 #### [facility] [address] [place] [address], [place] CO2 [Moles/Vol] 25 mmol/L Normal 21-31 [facility] Comment on above: Performed By: #### 3 1569, 63308, 66428 #### [facility] [address] [place] [address], [place] Creatinine [Mass/Vol] 2.56 mg/dL High 0.70-1.30 [facility] Comment on above: Performed By: #### 3 1569, 98763, 36913 #### [facility] [address] [place] [address], [place] eGFR- 30 ml/min/1.73sq m Abnormal >60 [facility] Comment on above: Result Comment: Calc ulation may not be valid for patients over 70 years Performed By: #### 3 1569, 89812, 77702 #### [facility] [address] eGFR- non- 25 ml/min/1.73sq m Abnormal >60 [facility] Comment on above: Result Comment: Calc ulation may not be valid for patients over 70 years Performed By: #### 3 1569, 13132, 92535 #### [facility] [address] [place] [address], [facility] Glucose [Mass/Vol] 219 mg/dL High 70-100 [facility] Comment on above: Performed By: #### 3 156, , 45464 #### [facility] [address] Potassium [Moles/Vol] 4.6 mmol/L Normal 3.5-5.1 [facility] Comment on above: Performed By: #### 3 156, , 81941 #### [facility] [address] [place] [address], [facility] Sodium [Moles/Vol] 136 mmol/L Normal 136-145 [facility] Comment on above: Performed By: #### 3 156, , 09799 #### [facility] [address] [facility] [place] [address], [facility] Urea nitrogen [Mass/Vol] 42 mg/dL High 7-25 [facility] Comment on above: Performed By: #### 3 1569, 52733, 61168 #### [facility] [address] [place] [address], [facility] CBC W/DIFFon 03-28-2021 ABS IMM GRANS 0.0 10*3/uL Normal 0.0-0.2 [facility] Comment on above: Performed By: #### 3 156, , 15714 #### [facility] [address] [place] [address], [place] ABS NEUTROPHILS 6.4 10*3/uL Normal 1.6-7.6 [facility] Comment on above: Performed By: #### 3 156, , 53579 #### [facility] [address] [place] [address], [place] Basophils (Bld) [#/Vol] 0.1 10*3/uL Normal 0.0-0.2 [facility] Comment on above: Performed By: #### 3 156, , 73142 #### [facility] [address] [place] [address], [place] Basophils/100 WBC (Bld) 0.7 % Normal 0.0-1.0 T [facility] Comment on above: Performed By: #### 3 1568, , 99060 #### [facility] [address] [place] [address], [place] Eosinophils (Bld) [#/Vol] 0.1 10*3/uL Normal 0.0-0.5 [facility] Comment on above: Performed By: #### 3 1568, , 26002 #### [facility] [address] [place] [address], [place] Eosinophils/100 WBC (Bld) 1.3 % Normal 0.0-6.0 [facility] Comment on above: Performed By: #### 3 1568, , 83345 #### [facility] [address] [place] [address], [place] Erythrocyte distribution width (RBC) [Ratio] 14.6 % Normal 11.5-15.0 [facility] Comment on above: Performed By: #### 3 156, , 42730 #### [facility] [address] [place] [address], [place] Hematocrit (Bld) [Volume fraction] 38.8 % Low 39.0-50.0 [facility] Comment on above: Performed By: #### 3 156, , 75314 #### [facility] [address] [facility] [address] Hemoglobin (Bld) [Mass/Vol] 12.5 g/dL Low 13.0-17.0 [facility] Comment on above: Performed By: #### 3 156, , 18170 #### [facility] [address] [facility] [place] [address], [facility] IMMATURE GRANS 0.4 % Normal 0.0-1.0 [facility] Comment on above: Performed By: #### 3 156, , 50958 #### [facility] [address] Lymphocytes (Bld) [#/Vol] 1.8 10*3/uL Normal 1.2-4.0 [facility] Comment on above: Performed By: #### 3 1568, , 75373 #### [facility] [address] Lymphocytes/100 WBC (Bld) 19.6 % Low 20.0-45.0 [facility] Comment on above: Performed By: #### 3 1568, , 31500 #### [facility] [address] [facility] [address] MCH (RBC) [Entitic mass] 27.7 pg Normal 27.0-33.0 [facility] Comment on above: Performed By: #### 3 156, , 37451 #### [facility] [address] [place] [address], [facility] MCHC (RBC) [Mass/Vol] 32.2 g/dL Normal 32.0-35.0 [facility] Comment on above: Performed By: #### 3 156, 26593, 42888 #### [facility] [address] [place] [id number], [facility] MCV (RBC) [Entitic vol] 85.8 fL Normal 82.0-98.0 T [facility] Comment on above: Performed By: #### 3 156, , 98627 #### [facility] [address] [place] [address], [facility] Monocytes (Bld) [#/Vol] 0.7 10*3/uL Normal 0.1-1.0 [facility] Comment on above: Performed By: #### 3 1568, , 35538 #### [facility] [address] [place] [address], [facility] MONOS 8.1 % Normal 5.0-12.0 [facility] Comment on above: Performed By: #### 3 1568, , 44688 #### [facility] [address] [place] [address], [facility] Neutrophils/100 WBC (Bld) 69.9 % Normal 40.0-72.0 [facility] Comment on above: Performed By: #### 3 1568, , 91293 #### [facility] [address] [place] [id number], [facility] Nucleated RBC/100 WBC (Bld) [Ratio] 0 % Normal 0-0 [facility] Comment on above: Performed By: #### 3 156, , 25800 #### [facility] [address] [place] [id number], [place] PLAT CNT 152 10*3/uL Normal 150-400 [facility] Comment on above: Performed By: #### 3 156, , 61304 #### [facility] [address] [place] [id number], [place] RBC (Bld) [#/Vol] 4.52 10*6/uL Normal 4.20-5.70 [facility] Comment on above: Performed By: #### 3 1569, 74660, 75170 #### [facility] [address] WBC (Bld) [#/Vol] 9.17 10*3/uL Normal 4.00-10.60 [facility] Comment on above: Performed By: #### 3 1569, 09111, 09906 #### [facility] [address] [facility] [address] HEMOGLOBIN A1Con 03-28-2021 Glucose [Moles/Vol] 183 mmol/L Normal [facility] Comment on above: Performed By: #### 3 1569, 97735, 29910 #### [facility] [address] [facility] [address] HbA1c (Bld) [Mass fraction] 8.0 % High 4.0-6.0 [facility] Comment on above: Performed By: #### 3 1569, 70613, 20980 #### [facility] [address] [facility] [address] MAGNESIUM BLOODon 03-28-2021 Magnesium [Mass/Vol] 2.0 mg/dL Normal 1.9-2.7 [facility] Comment on above: Performed By: #### 3 1569, 54852, 44850 #### [facility] [address] [facility] [address] Basic Metabolic PanelOrdered By: Tracey Sepulveda on 02-07-2021 Anion gap [Moles/Vol] 12 mmol/L 9 - 17 mmol/L [employer] Phone: Calcium [Mass/Vol] 8.9 mg/dL 8.6 - 10. 4 mg/dL [employer] Phone: Chloride [Moles/Vol] 102 mmol/L 98 - 10 7 mmol/L [employer] Phone: CO2 [Moles/Vol] 20 mmol/L 20 - 31 mmol/L [employer] Phone: Creatinine [Mass/Vol] 2.55 mg/dL High 0.70 - 1.20 mg/dL [employer] Phone: GFR 30 mL/min Low >60 [employer] Phone: GFR Non- 25 mL/min Low >60 [employer] Phone: Glucose [Mass/Vol] 191 mg/dL High 70 - 99 mg/dL [employer] Phone: Interpretation and review of laboratory results Abnormal [employer] Phone: Potassium [Moles/Vol] 4.7 mmol/L 3.7 - 5.3 mmol/L [employer] Phone: Sodium [Moles/Vol] 134 mmol/L Low 135 - 144 mmol/L [employer] Phone: Urea nitrogen (BldV) [Mass/Vol] 51 mg/dL High 8 - 23 mg/dL [employer] Phone: Urea nitrogen/Creatinine (Bld) [Mass ratio] 20 [employer] Phone: Laboratory - Chemistry and C hemistry - challengeOrdered By: Tracey Sepulveda on 02-07-2021 GFR/1.73 sq M.predicted MDRD (S/P/Bld) [Vol rate/Area] [employer] Phone: Comment on above: Average GFR for 70 o r more years old: 75 mL/min/1.73sq m Chronic Kidney Disease: <60 mL/min/1.73sq m Kidney failure: <15 mL/min/1.73sq m eGFR calculated using average adult body mass. Additional eGFR calculator available at: http://www.[employer]/multiple_crcl_2012.htm Stage 1: Some kidney damage normal GFR Stage 2: Mild kidney damage GFR 60-89 Stage 3: Moderate kidney damage GFR 30-59 Stage 4: Severe kidney damage GFR 15-29 Stage 5: Severe kidney damage GFR <15 ESRD - chronic treatment by dialysis or transplant MagnesiumOrdered By: Tracey weiner on 02-07-2021 Magnesium [Mass/Vol] 2.2 mg/dL 1.6 - 2 .6 mg/dL [facility] [employer] Work Phone: Microscopic UrinalysisOrdere d By: Tracey Sepulveda on 02-07-2021 - [facility] [employer] Work Phone: Amorphous, UA NOT REPORTED None [employer] Work Phone: Bacteria, UA 2+ Abnormal None [facility] [employer] Work Phone: Casts UA NOT REPORTED /LPF [facility] [employer] Work Phone: Crystals, UA NOT REPORTED None /HPF [facility] Work Phone: Epithelial Cells UA 0 TO 2 [facility] [employer] Work Phone: Interpretation and review of laboratory results Abnormal [facility] [employer] Work Phone: Mucus, UA NOT REPORTED None [facility] [employer] Work Phone: Other Observations UA NOT REPORTED NOT REQ. M [facility] [employer] Work Phone: RBC, UA 2 TO 5 [facility] [employer] Work Phone: Renal Epithelial, UA NOT REPORTED 0 /HPF Me [facility] Work Phone: Trichomonas, UA NOT REPORTED None [facility] Work Phone: WBC, UA GREATER THAN 100 [facility] [employer] [facility] Work Phone: Yeast, UA NOT REPORTED None [facility] [employer] Work Phone: [facility] Work Phone: No Panel InformationOrdered By: Tracey Sepulveda on 02-07-2021 [facility] Work Phone: PhosphorusOrdered By: Tracey Sepulveda on 02-07-2021 Phosphate [Mass/Vol] 4.1 mg/dL 2.5 - 4 .5 mg/dL [facility] [employer] Work Phone: UrinalysisOrdered By: Tracey Sepulveda on 02-07-2021 Bilirubin Urine Negative NEGATIVE [facility] Work Phone: Color, UA YELLOW YELLOW [facility] Work Phone: Glucose, Ur Negative NEGATIVE [facility] [employer] Work Phone: Interpretation and review of laboratory results Abnormal [facility] [employer] Work Phone: Ketones Ql (U) Negative NEGATIVE [facility] Work Phone: Leukocyte esterase Test strip Ql (U) LARGE Abnormal NEGATIVE [facility] [employer] Work Phone: Nitrite, Urine Negative NEGATIVE [facility] Work Phone: pH, UA 6.0 [facility] [employer] Work Phone: Protein, UA 2+ Abnormal NEGATIVE [facility] [employer] Work Phone: Specific [place], UA 1.020 [facility] Work Phone: Turbidity UA CLEAR CLEAR [facility] [employer] Work Phone: Urinalysis Comments NOT REPORTED [facility] [employer] Work Phone: Urine Hgb 1+ Abnormal NEGATIVE [facility] [employer] Work Phone: Urobilinogen, Urine Normal Normal [facility] [employer] Work Phone: [facility] Work Phone: C3 ComplementOrdered By: Cori Sepulveda on 01-19-2021 Complement C3 122 mg/dL 90 - 180 mg/dL [facility] [employer] Work Phone: C4 ComplementOrdered By: Cori Sepulveda on 01-19-2021 Complement C4 25 mg/dL 10 - 40 mg/dL [facility] Work Phone: CBCOrdered By: Tracey Sepulveda on 01-19-2021 Hematocrit (Bld) [Volume fraction] 34.0 % Low 40.7 - 50.3 % [employer] Phone: Hemoglobin.gastrointest inal spec 1 Ql (Stl) 11.1 g/dL Low 13.0 - 17.0 g/dL [employer] Phone: Interpretation and review of laboratory results Abnormal [employer] Phone: MCH (RBC) [Entitic mass] 28.4 pg 25.2 - 33.5 pg [employer] Phone: MCHC (RBC) [Mass/Vol] 32.6 g/dL 28.4 - 34.8 g/dL [employer] Phone: MCV (RBC) [Entitic vol] 87.0 fL 82.6 - 102.9 fL [employer] Phone: NRBC Automated 0.0 0.0 per 100 WBC [employer] Phone: Platelet distribution width (Bld) [Ratio] 14.4 % 11.8 - 14.4 % [employer] Phone: Platelet mean volume (Bld) [Entitic vol] 11.3 fL 8.1 - 13.5 fL [employer] Phone: Platelets (Bld) [#/Vol] 180 10*3/uL [employer] Phone: RBC (Bld) [#/Vol] 3.91 10*6/uL Low 4.21 - 5.7 7 m/uL [employer] Phone: WBC (Bld) [#/Vol] 8.8 10*3/uL [employer] Phone: [employer] Phone: Comprehensive Metabolic Pane lOrdered By: Tracey Sepulveda on 01-19-2021 Albumin [Mass/Vol] 3.6 g/dL 3.5 - 5.2 g/dL [employer] Phone: Albumin/Globulin [Mass ratio] 0.8 {ratio} Low [employer] Phone: ALP (Bld) [Catalytic activity/Vol] 113 U/L 40 - 129 U/L [employer] Phone: ALT [Catalytic activity/Vol] 50 U/L High 5 - 41 U/L [employer] Phone: Anion gap [Moles/Vol] 13 mmol/L 9 - 17 mmol/L [employer] Phone: AST [Catalytic activity/Vol] 27 U/L <40 [employer] Phone: Bilirubin [Mass/Vol] 0.27 mg/dL Low 0.3 - 1 .2 mg/dL [employer] Phone: Calcium [Mass/Vol] 8.8 mg/dL 8.6 - 10. 4 mg/dL [employer] Phone: Chloride [Moles/Vol] 97 mmol/L Low 98 - 10 7 mmol/L [employer] Phone: CO2 [Moles/Vol] 21 mmol/L 20 - 31 mmol/L [employer] Phone: Creatinine [Mass/Vol] 3.49 mg/dL High 0.70 - 1.20 mg/dL [employer] Phone: Free PSA/Total PSA [Mass fraction] 7.9 g/dL 6.4 - 8.3 g/dL [employer] Phone: GFR 21 mL/min Low >60 [employer] Phone: GFR Non- 17 mL/min Low >60 [employer] Phone: Glucose [Mass/Vol] 331 mg/dL High 70 - 99 mg/dL [employer] Phone: Interpretation and review of laboratory results Abnormal [employer] Phone: Potassium [Moles/Vol] 4.5 mmol/L 3.7 - 5.3 mmol/L [employer] Phone: Sodium [Moles/Vol] 131 mmol/L Low 135 - 144 mmol/L [employer] Phone: Urea nitrogen (BldV) [Mass/Vol] 69 mg/dL High 8 - 23 mg/dL [employer] Phone: Urea nitrogen/Creatinine (Bld) [Mass ratio] 20 [employer] Phone: [employer] Phone: Creatinine, Random UrineOrde red By: Tracey Sepulveda on 01-19-2021 Creatinine, Ur 62.4 mg/dL 39.0 - 259.0 mg/dL [employer] Phone: [employer] Phone: Laboratory - Chemistry and C hemistry - challengeOrdered By: Tracey Sepulveda on 01-19-2021 GFR/1.73 sq M.predicted MDRD (S/P/Bld) [Vol rate/Area] [employer] Phone: Comment on above: Average GFR for 70 o r more years old: 75 mL/min/1.73sq m Chronic Kidney Disease: <60 mL/min/1.73sq m Kidney failure: <15 mL/min/1.73sq m eGFR calculated using average adult body mass. Additional eGFR calculator available at: http://www.[employer].com/multiple_crcl_2012.htm Stage 1: Some kidney damage normal GFR Stage 2: Mild kidney damage GFR 60-89 Stage 3: Moderate kidney damage GFR 30-59 Stage 4: Severe kidney damage GFR 15-29 Stage 5: Severe kidney damage GFR <15 ESRD - chronic treatment by dialysis or transplant No Panel InformationOrdered By: Tracey Sepulveda on 01-19-2021 [employer] Phone: Protein, urine, randomOrdere d By: Tracey Sepulveda on 01-19-2021 Protein (U) [Mass/Vol] 52 mg/dL [facility] [employer] Work Phone: Comment on above: No normal range esta blished. [facility] Work Phone: Urinalysis, Chem onlyOrdered By: Tracey Sepulveda on 01-19-2021 Bilirubin Urine Negative NEGATIVE [facility] Work Phone: Color, UA YELLOW YELLOW [facility] [employer] Work Phone: Glucose, Ur Negative NEGATIVE [facility] Work Phone: Interpretation and review of laboratory results Abnormal [facility] [employer] Work Phone: Ketones Ql (U) Negative NEGATIVE [facility] Work Phone: Leukocyte esterase Test strip Ql (U) Negative NEGATIVE [facility] [employer] Work Phone: Nitrite, Urine Negative NEGATIVE [facility] Work Phone: pH, UA 5.5 [facility] [employer] Work Phone: Protein, UA 1+ Abnormal NEGATIVE [facility] [employer] Work Phone: Specific [place], UA 1.015 [facility] [employer] Work Phone: Turbidity UA CLEAR CLEAR [facility] [employer] Work Phone: Urinalysis Comments NOT REPORTED [facility] [employer] Work Phone: Urine Hgb Negative NEGATIVE [facility] [employer] Work Phone: Urobilinogen, Urine Normal Normal [facility] [employer] Work Phone: [facility] Work Phone: Vitamin D 25 HydroxyOrdered By: Tracey Sepulveda on 01-19-2021 Interpretation and review of laboratory results Abnormal [facility] [employer] Work Phone: Vit D, 25-Hydroxy 28.3 ng/mL Low 30.0 - 100 .0 ng/mL [facility] [employer] Work Phone: Comment on above: Reference Range: Vitamin D status Range Deficiency <20 ng/mL Mild Deficiency 20-30 ng/mL Sufficiency 30-100 ng/mL Toxicity >100 ng/mL [facility] [employer] Work Phone: Microscopic UrinalysisOrdere d By: Tracey Sepulveda on 01-13-2021 - [facility] Work Phone: Amorphous, UA NOT REPORTED None [facility] Work Phone: Bacteria, UA 4+ Abnormal None [facility] Work Phone: Casts UA NOT REPORTED /LPF [facility] Work Phone: Crystals, UA NOT REPORTED None /HPF [facility] Work Phone: Epithelial Cells UA 2 TO 5 [facility] Work Phone: Interpretation and review of laboratory results Abnormal [facility] Work Phone: Mucus, UA NOT REPORTED None [facility] Work Phone: Other Observations UA NOT REPORTED NOT REQ. M [facility] [employer] Work Phone: RBC, UA 20 TO 50 [facility] [employer] Work Phone: Renal Epithelial, UA NOT REPORTED 0 /HPF Me [facility] Work Phone: Trichomonas, UA NOT REPORTED None [facility] Work Phone: WBC, UA GREATER THAN 100 [facility] Work Phone: Yeast, UA NOT REPORTED None [facility] Work Phone: [facility] Work Phone: Urinalysis Reflex to Culture Ordered By: Tracey Sepulveda on 01-13-2021 Bilirubin Urine Negative NEGATIVE [facility] Work Phone: Color, UA YELLOW YELLOW [facility] Work Phone: Glucose, Ur Negative NEGATIVE [facility] [employer] Work Phone: Interpretation and review of laboratory results Abnormal [facility] [employer] Work Phone: Ketones Ql (U) Negative NEGATIVE [facility] Work Phone: Leukocyte esterase Test strip Ql (U) LARGE Abnormal NEGATIVE [facility] Work Phone: Nitrite, Urine Negative NEGATIVE [facility] [employer] Work Phone: pH, UA 6.0 [facility] Work Phone: Protein, UA 2+ Abnormal NEGATIVE [facility] [employer] Work Phone: Specific [place], UA 1.020 [facility] [employer] Work Phone: Turbidity UA CLOUDY Abnormal CLEAR [facility] [employer] Work Phone: Urinalysis Comments NOT REPORTED [facility] [employer] Work Phone: Urine Hgb 3+ Abnormal NEGATIVE [facility] [employer] Work Phone: Urobilinogen, Urine Normal Normal [facility] [employer] Work Phone: [facility] Work Phone: Comprehensive Metabolic Pane [facility] 06-17-2019 Albumin [Mass/Vol] 3.2 g/dL Low 3.5 - 5.2 g/dL [place], [place] Albumin/Globulin [Mass ratio] 0.8 {ratio} Low [place], [place] ALP [Catalytic activity/Vol] 109 U/L 40 - 129 U/L [place] ALT [Catalytic activity/Vol] 12 U/L 5 - 41 U/L [place] Anion gap [Moles/Vol] 10 mmol/L 9 - 17 mmol/L [place] AST [Catalytic activity/Vol] 13 U/L <40 [place] Bilirubin Ql (U) 0.37 mg/dL 0.3 - 1.2 mg/dL [place] Bun/Cre Ratio 15 [place] Calcium [Mass/Vol] 8.8 mg/dL 8.6 - 10. 4 mg/dL [place] Chloride [Moles/Vol] 97 mmol/L Low 98 - 10 7 mmol/L [place] CO2 [Moles/Vol] 26 mmol/L 20 - 31 mmol/L [place] Creatinine [Mass/Vol] 1.58 mg/dL High 0.7 - 1.2 mg/dL [place] GFR 52 mL/min Low >60 [place] GFR Non- 43 mL/min Low >60 [place] Glucose [Mass/Vol] 163 mg/dL High 70 - 99 mg/dL [place] Potassium [Moles/Vol] 4.4 mmol/L 3.7 - 5.3 mmol/L [place] Protein [Mass/Vol] 7.1 g/dL 6.4 - 8.3 g/dL [place] Sodium [Moles/Vol] 133 mmol/L Low 135 - 144 mmol/L [place] Urea nitrogen [Mass/Vol] 23 mg/dL 8 - 23 mg/dL [place] Lipid Panelon 06-17-2019 Cholesterol [Mass/Vol] 76 mg/dL <200 Me [place] Comment on above: Cholesterol Guidelines: <200 Desirable 200-240 Borderline >240 Undesirable Cholesterol in HDL [Mass/Vol] 28 mg/dL Low >40 [place] Comment on above: HDL Guidelines: <40 Undesirable 40-59 Borderline >59 Desirable Cholesterol in LDL [Mass/Vol] 25 mg/dL 0 - 130 mg/dL [place] Comment on above: LDL Guidelines: <100 Desirable 100-129 Near to/above Desirable 130-159 Borderline >159 Undesirable Direct (measured) LDL and calculated LDL are not interchangeable tests. Cholesterol in VLDL [Mass/Vol] NOT REPORTED 1 - 30 mg/dL [place] Cholesterol.total/Blanche sterol in HDL [Mass ratio] 2.7 {ratio} <5 [place] Triglyceride [Mass/Vol] 114 mg/dL <150 [place] Comment on above: Triglyceride Guidelines: <150 Desirable 150-199 Borderline 200-499 High >499 Very high Based on AHA Guidelines for fasting triglyceride, April 2012. Metabolic Panelon 06-17-2019 GFR/1.73 sq M predicted among non-blacks MDRD (S/P/Bld) [Vol rate/Area] [place] Comment on above: Average GFR for 70 o r more years old: 75 mL/min/1.73sq m Chronic Kidney Disease: <60 mL/min/1.73sq m Kidney failure: <15 mL/min/1.73sq m eGFR calculated using average adult body mass. Additional eGFR calculator available at: http://www.SegundoHogar/multiple_crcl_2012.htm Stage 1: Some kidney damage normal GFR Stage 2: Mild kidney damage GFR 60-89 Stage 3: Moderate kidney damage GFR 30-59 Stage 4: Severe kidney damage GFR 15-29 Stage 5: Severe kidney damage GFR <15 ESRD - chronic treatment by dialysis or transplant Microalbumin, Uron 9 Albumin/Creatinine DL <= 20 mg/L (24H U) [Mass ratio] 3804 mg/L High <21 [place] Albumin/Creatinine DL <= 20 mg/L (U) [Ratio] 2822 High <17 mcg/mg creat [place] Creatinine [Mass/Vol] 134.8 mg/dL 39 - 2 59 mg/dL [place] Interpretation and review of laboratory results Abnormal [place] Otheron 06-17-2019 Interpretation and review of laboratory results Abnormal [place] T4, Freeon 06-17-2019 Thyroxine, Free 1.34 ng/dL 0.93 - 1.7 ng/dL [place] TSH without Reflexon 019 TSH Qn 0.87 m[IU]/L [place] Vitamin B12on 06-17-2019 Cobalamin (Vitamin B12) [Mass/Vol] 477 pg/mL 232 - 1245 pg/mL [place] Vitamin D 25 Hydroxyon 06-17 Interpretation and review of laboratory results Abnormal [place] Vit D, 25-Hydroxy 9.6 ng/mL Low 30 - 100 ng/mL [place] Comment on above: Reference Range: Vitamin D status Range Deficiency <20 ng/mL Mild Deficiency 20-30 ng/mL Sufficiency 30-100 ng/mL Toxicity >100 ng/mL Encounters Encounter Date Encounter Type Care Provider Facility Start: 07-30-2023 Orders Only Debbie Fish 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 Work Phone: [facility] Start: 04-23-2023 End: 04-23-2023 ambulatory [facility] Start: 01-29-2023 End: 01-29-2023 ambulatory [facility] Start: 01-29-2023 End: 01-29-2023 Encounter for general adult medical examination without abnormal findings [facility] Start: 2022 End: 2022 ambulatory [facility] Start: 10-14-2022 End: 10-14-2022 ambulatory [facility] Start: 09-23-2022 End: 09-24-2022 ambulatory MANJULA STALEY [facility] Start: 09-23-2022 End: 09-23-2022 Subsequent hospital visit by physician Tracey Sepulveda DO Work Phone: [facility] Start: 09-16-2022 End: 09-17-2022 ambulatory [facility]UL[facility] Start: 09-16-2022 End: 09-16-2022 Subsequent hospital visit by physician Tracey Sepulveda DO Work Phone: [facility] Start: 09-09-2022 End: 09-10-2022 ambulatory [facility]ULA [facility] Start: 09-09-2022 End: 09-09-2022 Subsequent hospital visit by physician Tracey Sepulveda DO Work Phone: [facility] Start: 08-27-2022 End: 08-31-2022 Evaluation and management of inpatient [facility] Start: 07-31-2022 End: 07-31-2022 [facility] Start: 07-27-2022 End: 07-28-2022 ambulatory CHRIS RUELAS Facility:[facility] Start: 04-16-2022 End: 04-17-2022 ambulatory MARU SADLER Facility:[facility] Start: 09-28-2021 End: 09-29-[address] DOCTOR VEGA Facility:[facility] Start: 06-01-2021 End: 06-25-2021 ambulatory TRACEY SEPULVEDA Facility:[facility] Start: 05-08-2021 End: 05-08-2021 Subsequent hospital visit by physician Tracey Sepulveda DO Work Phone: [facility] Start: 04-23-2021 End: 04-24-2021 ambulatory TRACEY SEPULVEDA Facility:[facility] Start: 02-07-2021 End: 02-07-2021 Subsequent hospital visit by physician Tracey Sepulveda DO Work Phone: [facility] Start: 01-19-2021 End: 01-19-2021 Subsequent hospital visit by physician Tracey Sepulveda DO Work Phone: [facility] Start: 01-13-2021 End: 01-13-2021 Subsequent hospital visit by physician Tracey Sepulveda DO Work Phone: [facility] Start: 06-17-2019 End: 06-17-2019 Subsequent hospital visit by physician Tracey Sepulveda [facility] Procedures Date Procedure Procedure Detail Performing [...] Adult BMI Screening Adult BMI Screen ing [facility] Start: 06-18-2024 Tobacco Screening Tobacco Screening [facility] Start: 12-22-2023 End: 12-22-2023 Patient encounter procedure 12/22/2023 2:45 PM EDT Office Visit [facility] [address] [place] [address] Chris Guevara MD [address] [place] [address] [facility] Start: 09-17-2023 End: 09-17-2023 Patient encounter procedure 09/17/2023 2:00 PM EST Office Visit [facility] [address] [place] [address] Debbie Fish, 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 Start: 02-11-2022 Influenza vaccination Flu vaccine (# 1) [facility] Start: 02-07-2022 Creatinine measurement Creatinine mo [facility] Work Phone: Start: 02-07-2022 Potassium monitoring Potassium monit [facility] [employer] Phone: Start: 01-19-2022 Creatinine measurement Creatinine mo [facility] Work Phone: Start: 01-19-2022 Potassium monitoring Potassium monit [facility] Work Phone: Start: 09-10-2021 COVID-19 Vaccine (3 - Booster for Pfizer series) COVID-19 Vaccine (3 - Booster for Pfizer series) [facility] Start: 03-14-2021 Influenza vaccination Flu vaccine (# 1) [facility] [employer] Phone: Start: 02-04-2021 Annual Wellness Visi t (AWV) Annual Wellness Visit (AWV) [facility] Start: 06-17-2020 Creatinine measurement Creatinine mo [facility] Phone: Start: 06-17-2020 Creatinine monitoring Creatinine mon [place] Start: 06-17-2020 Lipid panel Lipid screen [facility] Work Phone: Start: 06-17-2020 Potassium monitoring Pot[place] monit [place] Start: 03-14-2019 Influenza vaccination Flu vaccine (# 1) [place] Start: 2009 Fall Risk Screening Fall Risk Screen ing [facility] Start: 2009 Pneumococcal 65+ yea rs Vaccine (1 of 1 - PPSV23) Pneumococcal 65+ years Vaccine (1 of 1 - PPSV23) [place] Start: 1994 Administration of varicella zoster vaccine Zoster (Shingles) Vaccine (1 of 2) [facility] Start: 1994 Shingles Vaccine (1 of 2) Shingles Vaccine (1 of 2) [facility] [employer] Phone: Start: 10-18-1963 DTaP,Tdap and Td Vaccines (1 - Tdap) DTaP,Tdap and Td Vaccines (1 - Tdap) [facility] Start: 10-18-1963 DTaP/Tdap/Td vaccine (1 - Tdap) DTaP/Tdap/Td vaccine (1 - Tdap) [employer] Start: 10-18-1963 Shingles vaccine (1 of 2) Shingles vaccine (1 of 2) [employer] Start: 1956 COVID-19 Vaccine (1) COVID-19 Vaccin e (1) [employer] Phone: Start: 1956 Depression Screen Depression Screen [facility] [employer] Start: 1956 Depression Screening Depression Scre ening [employer] Start: 1944 Hepatitis C screening Hepatitis C sc reen [employer] Phone: Start: 1945 Medicare Annual Wellness Visit Medicare Annual Wellness Visit [employer] End: 01-19-2021 GERDA profile GERDA profile Lab Routine Once for 1 Occurrences starting 01/19/2021 until 01/19/2021 [employer] Phone: Comment on above: Once for 1 Occurrenc es starting 01/19/2021 until 01/19/2021 GERDA profile GERDA profile Lab Routine 01/19/2021 4:00 PM EDT [employer] Phone: End: 01-13-2021 Culture, Urine Culture, Urine Microbiology Routine Once for 1 Occurrences starting 01/13/2021 until 01/13/2021 [employer] Phone: Comment on above: Once for 1 Occurrenc es starting 01/13/2021 until 01/13/2021 Culture, Urine [employer] Phone: End: 05-08-2021 Culture, Urine Culture, Urine Microbiology Routine Once for 1 Occurrences starting 05/08/2021 until 05/08/2021 [employer] Phone: Comment on above: Once for 1 Occurrenc es starting 05/08/2021 until 05/08/2021 End: 01-19-2021 Hepatitis B Core Antibody, Total Hepatitis B Core Antibody, Total Lab Routine Once for 1 Occurrences starting 01/19/2021 until 01/19/2021 [employer] Phone: Comment on above: Once for 1 Occurrenc es starting 01/19/2021 until 01/19/2021 Hepatitis B Core Antibody, Total Hepatitis B Core Antibody, Total Lab Routine 01/19/2021 4:00 PM EDT [employer] Phone: End: 01-19-2021 Hepatitis C Antibody Hepatitis C Antibody Lab Routine Once for 1 Occurrences starting 01/19/2021 until 01/19/2021 [employer] Phone: Comment on above: Once for 1 Occurrenc es starting 01/19/2021 until 01/19/2021 Hepatitis C Antibody Hepatitis C Antibody Lab Routine 01/19/2021 4:00 PM EDT [employer] Phone: End: 01-19-2021 Immunofixation serum profile Immunofixation serum profile Lab Routine Once for 1 Occurrences starting 01/19/2021 until 01/19/2021 [employer] Phone: Comment on above: Once for 1 Occurrenc es starting 01/19/2021 until 01/19/2021 Immunofixation serum profile Immunofixation serum profile Lab Routine 01/19/2021 4:26 PM EDT [employer] Phone: End: 01-19-2021 Shalimar/Lambda Free Lt Chains, Serum Quant Shalimar/Lambda Free Lt Chains, Serum Quant Lab Routine Once for 1 Occurrences starting 01/19/2021 until 01/19/2021 [employer] Phone: Comment on above: Once for 1 Occurrenc es starting 01/19/2021 until 01/19/2021 Shalimar/Lambda Free Lt Chains, Serum Quant Shalimar/Lambda Free Lt Chains, Serum Quant Lab Routine 01/19/2021 4:00 PM EDT [employer] Phone: Protein Electrophoresis, Urine Protein Electrophoresis, Urine Lab Routine 01/19/2021 4:00 PM EDT [employer] Phone: End: 01-19-2021 PTH, Intact PTH, Intact Lab Routine Once for 1 Occurrences starting 01/19/2021 until 01/19/2021 [employer] Phone: Comment on above: Once for 1 Occurrenc es starting 01/19/2021 until 01/19/2021 PTH, Intact PTH, Intact Lab Routine 01/19/2021 4:00 PM EDT [employer] Phone: End: 01-19-2021 Vitamin D 1,25 Dihydroxy Vitamin D 1,25 Dihydroxy Lab Routine Once for 1 Occurrences starting 01/19/2021 until 01/19/2021 [employer] Phone: Comment on above: Once for 1 Occurrenc es starting 01/19/2021 until 01/19/2021 Vitamin D 1,25 Dihydroxy Vitamin D 1,25 Dihydroxy Lab Routine 01/19/2021 4:00 PM EDT [employer] Phone: Immunizations Immunization Date Immunization Notes Care Provider [facility] 08-12-2019 influenza virus vaccine, unspecified formulation Debbie Fish 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[employer] Work Phone: [facility] Payers Date Payer Category Payer Unknown [id number] 2017 Medicare MEDICARE MEDICAR E PART A AND B xxxxxxxxxx 2017-Present [phone] [address] [address] [place] [address] xxxxxxxxxx [id number] 2017 Private Health Insurance [employer] xxxxxxxx 2017-Present [phone] [address] [place] [address] xxxxxxxx [id number] 2017 Private Health Insurance [id number] 2010 Medicare MEDICARE MEDICAR E PART A & B [id number] 2010-Present [phone] [address] [place] [address] [id number] 1959 Medicare [id number] 1959 Private Health Insurance [id number] 1944 Unknown [id number] 1944 Unknown [id number] 1944 Unknown [id number] 1944 Unknown [id number] 1944 Unknown [id number] 1944 Unknown [id number] 1944 Unknown [id number] 1944 Unknown [id number] 1944 Unknown [id number] 1944 Unknown [id number] Unknown [employer] RCIAL - GENERIC PLAN [id number] Effective for all dates [address] [place] [address] [id number] Social History Date Type Detail Facility Start: 05-09-2014 End: 10-15-2022 Tobacco smoking status NHIS Never smoker [facility] [employer] Start: 05-09-2014 End: 09-19-2022 Alcohol intake Current non-drinker of alcohol (finding) [place], [place] Start: 1945 Sex Assigned At Not on file [place] Start: 08-27-2022 History SDOH Alcohol Std Drinks 0 [facility] [employer] Work Phone: Start: 08-17-2022 End: 08-27-2022 Exposure to SARS-CoV-2 (event) Not sure [employer] Start: 10-15-2022 Tobacco use and exposure [facility]oke [facility] Start: 06-18-2023 Alcohol intake Lifetime non-d andrade (finding[facility] Start: 12-23-2018 End: 06-18-2023 History of Social function [employer] Start: 12-23-2018 End: 06-18-2023 [facility] Procedure Code Equipment Code Equipment Origin al Text Equipment Identifier Dates Once daily [id number] Start: 04-16-2023 Progress note 04-23-2023 Note Date & Type Note Facility 04-23-2023 Note [facility]ovascular [facility] SUBJECTIVE Chief Complaint Patient presents with [...] January, oldest is 2. Live in [facility]. Patient Active Problem List Diagnosis Hypertension Benign prostatic hyperplasia Bilateral cataracts Coronary atherosclerosis Chronic diastolic heart failure ([facility]) Diverticulum of bladder Hyperlipidemia Kidney stone Preinfarction syndrome ([facility]) Sleep disorder Spondylolysis of cervical spine Stage 3 chronic kidney disease ([facility]) Type 2 diabetes mellitus with stage 3b chronic kidney disease ([facility]) Vitamin D deficiency Iron deficiency anemia Atrial fibrillation ([facility]) Stage 4 chronic kidney disease ([facility]) Hypertensive chronic kidney disease with stage 1 through stage 4 chronic kidney disease, or unspecified chronic kidney disease Edema of extremities Monoclonal gammopathy Moderate malnutrition ([facility]) History of cardiovascular disorder Proteinuria Shoulder pain Urinary tract infectious disease Past Medical History: Diagnosis Date Atrial fibrillation ([facility]) Chronic kidney disease Coronary artery disease Deep vein thrombosis ([facility]) Diabetes mellitus ([facility]) Heart disease Hyperlipidemia Hypertension Family History Family [...] present. Comments: +1BL (more content not included)... [facility] Progress note 04-23-2023 Note Date & Type Note Facility 04-23-2023 Note Patient here for 6 m o follow up PAD, chronic diastolic heart failure, hypertension, and CAD. Had routine amiodarone monitoring labs recently. Denies chest pain, SOB, and bleeding on Eliquis. Review of Systems Cardiovascular: Positive for leg swelling. All other systems reviewed and are negative. [facility] Progress note 01-29-2023 Note Date & Type [...] BURNETT on 02/02/23 at 8:23 PM. ------ [facility] Annual Medicare Wellness visit [...] file Stress: No Stress Concern Present (10/14/2022) [employer] - Occupational Stress Questionnaire Feeling of Stress : Not at all Social Connections: Unknown (10/14/2022) Social Connection and Isolation Panel [NHANES] Frequency of Communication with Friends and Family: Not on file Frequency of Social Gatherings with Friends and Family: Not on file Attends Jewish Services: Not on file Active Member of [...] amlodipine-atorvastatin ([place]ad[place]) 1 (more content not included)... [facility] Progress note 2022 Note Date & Type Note Facility 2022 Note Cardiovascular [facility] SUBJECTIVE Chief Complaint Patient presents with [...] Monoclonal gammopathy Moderate malnutrition ([facility]) Past Medical History: Diagnosis Date Atrial fibrillation ([facility]) Chronic kidney disease Coronary artery disease Deep vein thrombosis ([facility]) Diabetes mellitus ([facility]) Heart disease Hyperlipidemia Hypertension Family History Family [...] Ref Range Status (more content not included)... [facility] Progress note 2022 Note Date & Type Note Facility 2022 Note Review of Systems All other systems reviewed and are negative. [facility] Progress note 10-14-2022 Note Date & Type [...] he would like his primary care in [place] to make that referral. I will defer this to them. Patient did decide that he would like to do skilled therapy. Incidentally he did test positive for COVID-19 but is asymptomatic. Plan will be to discharge to [facility] tomorrow morning. Consultants: Dr. Carreon, Gen Surgery; [...] Kidney stone Preinfarction syndrome ([facility]) Sleep disorder Spondylolysis of cervical spine Stage 3 chronic kidney disease ([facility]) Type 2 diabetes mellitus with stage 3b chronic kidney disease ([facility]) Vitamin D deficiency Iron deficiency anemia Atrial fibrillation ([facility]) Stage 4 chronic kidney disease ([facility]) Hype (more content not included)... [facility] Progress note 09-26-2022 Note Date & Type Note Facility 09-26-2022 Note Transition of Care [facility] Date of Admission: 08/27/2022 Date of [...] Hospital follow-up appointment confirmed. AZEEM call complete. [facility] Progress note 07-31-2022 Note Date & Type [...] Faculty, Division of Nephrology, Department of Medicine, [facility]. ---- Nephrology [...] daily except Sundays when he goes to [employer]) Labs from Jul 27 (done outside, scanned under media in this chart): Serum Cr 2.37 (was 2.8 in February). BUN 46. Na 139. Bicarb 31. eGFR 32. K 4.4 Historical: 05/01/2022: Bertha Pulido is a 76 y.o. male has a past medical history of Diabetes mellitus ([facility]), Heart disease, Hyperlipidemia, and Hypertension. presents to [facility] Nephrology clinic today for follow up visit He has history of Type 2 Diabetes Mellitus, Hypertension, HFpEF, Afib on eliquis, CAD S/p CABG , history of strokes. Patient was admitted ta [facility] from 01/02/2021 - 01/05/2021 with complain of [...] heard. Pulmonary: Br (more content not included)... [facility] Instructions Note Date & Type Note Facility Instructions Not on filedocumented in this en counter [facility] Advance Directives Documents on File Type Date Recorded Patient Basic Acoustic Analyst Expl anation Advance Directives and Living Will Power of Chief Meteorologist Documents on File Type Date Recorded Patient Basic Acoustic Analyst Expl anation ACP-Advance Directive ACP-Power of Chief Meteorologist Latest Code Status on File Code Status [...] section and content) DATE CREATED AUTHOR 08/24/2021 [facility] DATE CREATED AUTHOR AUTHOR'S ORGANIZ ATION 03/08/2022 [facility] DATE CREATED AUTHOR AUTHOR'S ORGANIZ ATION 07/30/2022 [facility] DATE CREATED AUTHOR AUTHOR'S ORGANIZ ATION 09/24/2022 [facility] DATE CREATED AUTHOR AUTHOR'S ORGANIZ ATION 07/15/2023 [facility] Care Teams (unrecognized sec tion and content) Youth Care Specialist Relationship Specialty Start Date End Date Tracey Sepulveda DO [address] [place] [address] PCP - General Internal Medicine [...] BE BASED ON THE PRIMARY CLINICAL RECORDS. [facility] [employer] [facility]. provides no warranty or guarantee of the accuracy or completeness of information in this document.
[2023-08-05 14:12] LABS: Estimated Average Glucose 206 mg/dL; Glycohemoglobin A1C 8.8 % (4.5-6.2)
== END 2023-08-05 11:20 | disposition home or self-care (01) ==
DX: Z00.00 Encounter for general adult medical examination without abnormal findings (principal); E11.22 Type 2 diabetes mellitus with diabetic chronic kidney disease; N18.4 Chronic kidney disease, stage 4 (severe); I48.0 Paroxysmal atrial fibrillation; D50.9 Iron deficiency anemia, unspecified; I10 Essential (primary) hypertension; E78.2 Mixed hyperlipidemia; E55.9 Vitamin D deficiency, unspecified
CPT/HCPCS: 36415; 82306; 83036

== ENCOUNTER 2023-08-20 12:12 | Outpatient (OUT) | payer MEDICARE, OTHER, SELFPAY ==
--- OUTSIDE RECORDS SUMMARY | 2023-08-20 12:23 | XMS_ITS | CCD ---
Author Name Unknown Address [address] [place] [address] Organization [facility] Care Team Providers Care Cigar Head Puncher Name Role Phone Cori Sepulvedani Primary Care Provider [phone] DERICK, TRACEY Referring Unavailable OLMSTEAD, MOHAMMAD H Admitting Unavailable OLMSTEAD, MOHAMMAD H Attending Unavailable HEEDDAEBU, TRACEY Primary Care Unavailable HEJEEBU, TRACEY Referring Unavailable OLMSTEAD, MOHAMMAD H Attending Unavailable OLMSTEAD, MOHAMMAD H Admitting Unavailable HEJEEBU, TRACEY Primary Care Unavailable SUARJ, CHRIS Admitting Unavailable SURAJ, CHRIS Attending Unavailable MISC, DR GARSIA Primary Care Unavailable SURAJ, CHRIS Consulting Unavailable MISC, DR GARSIA Admitting Unavailable MISC, DR GARSIA Attending Unavailable MISC, DR GARSIA Consulting Unavailable ALI, MAHONEY Admitting Unavailable ALI, MAHONEY Attending Unavailable MISC, DR GARSIA Primary Care Unavailable ALI, MAHONEY Consulting Unavailable GAURAV, TIFF Admitting Unavailable TIFF ARREOLA Attending Unavailable TIFF ARREOLA Consulting Unavailable Hejeebu DO, Tracey Primary Care Provider [phone] MANJULA STALEY Referring Unavailable HEJEEBU, TRACEY Primary Care Unavailable MANJULA STALEY Referring Unavailable HEJEEBU, TRACEY Primary Care Unavailable HEJEEBU, TRACEY Primary Care Unavailable WANDY PADRON Admitting Unavailable WANDY PADRON Attending Unavailable EDUARDO CARREON Consulting Unavailable JARRED BUENO Consulting Unavailable MANJULA STALEY Referring Unavailable HEJEEBU, TRACEY Primary Care Unavailable Unavailable Primary Care Provider Unavailabl e TIFF ARREOLA Attending Unavailable TIFF ARREOLA Attending Unavailable YONIS CASTILLO Attending Unavailable HEEDDAEBU, TRACEY Attending Unavailable HEEDDAEBU, TRACEY Attending Unavailable Allergies Allergy Classification Reported Allergen(s) Allergy Type Date of Onset Reaction(s) Facility (1 source) 96719,00; Translations: [29491,00] Propensity to adverse reactions (disorder) 9 [facility] Repository Medications Current Medications Medication Drug [...] by mouth. 0 Active polyethylene glycol 3350 47548 mg powder for oral solution (3 sources) [...] Start: 08-30-2022 take 1 capsule by mo ut at bedtime tamsulosin (FLOMAX) 0.4 MG capsule Take 1 capsule by mouth in the morning and at bedtime 30 capsule 3 08/30/2022 Active TRULICITY 3 mg/0.5 mL pen injector (1 source) Start: 06-18-2023 inject 3 mg by subcutaneous injection every week TRULICITY 3 mg/0.5 mL pen injector Indications: Type 2 diabetes mellitus with hyperglycemia, without long-term current use of insulin ([facility]) Inject 3 mg under the skin once a week. 6 mL 3 06/18/2023 Active Problems Active Problems Problem Classification Problem Date Documented Da te Episodic/Chronic Abdominal hernia (2 sources) Unspecified abdominal hernia without obstruction or gangrene; Translations: [Unspecified abdominal hernia without obstruction or gangrene] Onset: 08-12-2023 Episodic Abdominal pain (6 sources) Intractable abdominal pain; [...] Mixed hyperlipidemia; Translations: [Mixed hyperlipidemia] Onset: 03-16-2022 04-16-2023 Chronic Essential hypertension (7 sources) Hypertensive disorder; [...] protein-calorie malnutrition] Onset: 03-16-2022 08-28-2022 Chronic Other nervous system disorders (1 source) Other chronic pain; Translations: [Other chronic pain] Onset: 08-27-2022 Chronic Other non-traumatic joint disorders (1 source) Pain in left hip; Translations: [Pain in left hip] Onset: 08-27-2022 Episodic Past or Other Problems Problem Classification Problem Date Documented Da te Episodic/Chronic Deficiency and other anemia (2 sources) Iron deficiency anemia, unspecified; Translations: [Iron deficiency anemia, unspecified] Onset: 04-03-2022 Episodic Other aftercare (6 sources) 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; Translations: [OTH HALF-WAY CURRENT DRUG THERAPY] Onset: 07-27-2022 Episodic Other aftercare (2 sources) Encounter for therapeutic drug level monitoring; Translations: [Encounter for therapeutic drug level monitoring] Onset: 04-23-2023 Episodic Results Test Name Value Interpretation Reference Range Facility Follow-Upon 08-12-2023 Follow-Up [id number] Bertha Pulido 1945 M Date Provider Department Center 08/12/2023 TRACEY OROZCO [facility] INT MED Comprehensiv Family History Family history unknown: Yes Level of Service:45054 ME OFFICE/OUTPATIENT ESTABLISHED MOD MDM 30 MIN Reason for Visit and Comments: Follow-up [243169] - HTN Follow up , Abdominal pain x's 2 yrs. [facility] 36on 08-08-2023 36 Please let him know his CXR looks good. Thanks [facility] Telephoneon 08-08-2023 Telephone [id number] Bertha Pulido 1945 M Date Provider Department Center 08/08/2023 TIFF MABRY [facility] Family History Family history unknown: Yes [facility] Refillon 07-12-2023 Refill [id number] Bertha Pulido 1945 M Date Provider Department Center 07/12/2023 TRACEY [facility]OZCO [facility] INT MED Comprehensiv Family History Family history unknown: Yes Reason for Visit and Comments: Med Refill [[id number]] [facility] Refillon 06-13-2023 Refill [id number] Bertha Pulido 1945 M Date Provider Department Center 06/13/2023 TRACEY OROZCO [facility] INT MED Comprehensiv Family History Family history unknown: Yes Reason for Visit and Comments: Med Refill [[id number]] [facility] Refillon 04-26-2023 Refill [id number] Bertha Pulido 1945 M Date Provider Department Center 04/26/2023 TRACEY OROZCO [facility] INT MED Comprehensiv Family History Family history unknown: Yes Reason for Visit and Comments: Med Refill [[id number]] [facility] Office Visiton 04-23-2023 Follow-up visit [id number] Bertha Pulido 1945 Date Provider Department [place] 04/23/2023 Tiana-TIFF ARREOLA [facility] Family History Family history unknown: Yes Level of Service:97339 ME OFFICE/OUTPATIENT ESTABLISHED LOW MDM 20-29 MIN Reason for Visit and Comments: Hypertension [800913] Coronary Artery Disease [187] Congestive Heart Failure [127] Atrial Fibrillation [80] [facility] 36on 04-15-2023 36 Patient is completel y out [facility] Refillon 04-07-2023 Refill [id number] Bertha Pulido 1945 [facility] Provider Department [place] 04/07/2023 TRACEY OROZCO [facility] INT MED Comprehensiv Family History Family history unknown: Yes Reason for Visit and Comments: Med Refill [[id number]] [facility] 2901-29-2023 29 Addended by: LOBITO BURNETT on: 04/14/2023 03:15 PM Modules accepted: Level of Service [facility] 36on 01-29-2023 36 Left voice mail for patient to call the office to get scheduled for an appointment [facility] Follow-Upon 01-29-2023 Follow-Up [id number] Bertha Pulido 1945 [facility] Provider Department [place] 01/29/2023 393YONIS FONTENOT [facility] INT MED Comprehensiv Family History Family history unknown: Yes Level of Service:11296 ME OFFICE/OUTPATIENT ESTABLISHED LOW MDM 20-29 MIN (GE) Reason for Visit and Comments: cdm follow up, [Other] - 3 month check up. [facility] 36on 01-27-2023 36 Please call Bertha to reschedule appointment 01/27/23 kt [facility] Telephoneon 01-27-2023 Telephone [id number] Bertha Pulido Vipul 1945 [facility] Provider Department Center 01/27/2023 JYOTI SOLIS [facility] NEPHRO Comprehensiv Family History Family history unknown: Yes [facility] 36on 01-24-2023 36 Called patient lvm t o contact office back to reschedule appointment with . [facility] Orders Onlyon 01-21-2023 Orders Only [id number] Bertha Pulido Vipul 1945 [facility] Provider Department Center 01/21/2023 RAY NEW [facility] INT MED Comprehensiv Family History Family history unknown: Yes [facility] Refillon 01-21-2023 Refill [id number] Bertha Pulido Vipul 1945 [facility] Provider Department [place] 01/21/2023 TRACEY OROZCO [facility] INT MED Comprehensiv Family History Family history unknown: Yes Reason for Visit and Comments: Med Refill [[id number]] [facility] 36on 01-06-2023 36 Patient would like t o know if he needs labs before next appointment. Please advise. Thank you. [facility] Refillon 01-01-2023 Refill [id number] Bertha Pulido Vipul 1945 Provider Department Center 01/01/2023 TRACEY OROZCO [facility] INT MED Comprehensiv Family History Family history unknown: Yes Reason for Visit and Comments: Med Refill [[id number]] [facility] 36on 11-27-2022 36 Called to see if patient had labs for today's appointment, if patient doesn't have labs we will need to reschedule [facility] Office Visiton 2022 Follow-up visit [id number] Bertha Pulido Vipul 1945 Provider Department Center 2022 TIFF M[facility] Family History Family history unknown: Yes Level of Service:71274 ME OFFICE/OUTPATIENT ESTABLISHED MOD MDM 30-39 MIN Reason for Visit and Comments: Hypotension [407] [facility] Refillon 10-16-2022 Refill [id number] Anne-MarieBertha 1945 M [facility] Provider Department Center 10/16/2022 TRACEY OROZCO [facility] INT MED Comprehensiv Family History Family history unknown: Yes Reason for Visit and Comments: Med Refill [[id number]] [facility] 36on 10-14-2022 36 I called pt he was not home. I spoke to She stated pt has not complained the past couple days. That pt will be at his appt with Liz Arreola. [facility] Follow-Upon 10-14-2022 Follow-Up [id number] Anne-MarieBertha 1945 M [facility] Provider Department Center 10/14/2022 TRACEY OROZCO [facility] INT MED Comprehensiv Family History Family history unknown: Yes Level of Service:G0439 ME PPPS, SUBSEQ VISIT (25) Reason for Visit and Comments: Hospital Follow-up [832] - -Metorprolol tartrate has not been taking for about 1 week now. - [facility] Rectal Pain [[id number]] [facility] 36on 10-10-2022 36 Patient is calling would like to know if he should be getting any lab work done before his appointment with you next week. Please advise [facility] Telephoneon 10-09-2022 Telephone [id number] Bertha Pulido Vipul 1945 M [facility] Provider Department Center 10/09/2022 166-TIFF ARREOLA [facility] Family History Family history unknown: Yes Reason for Visit and Comments: Low BP [Other] - Pt LVM stating his BP has been in the 50s for 1 wk. I tried to call pt back no answer LVM to CB with more details. [facility] 36on 10-02-2022 36 Orders placed, left detailed message on patients recorder. Needing to know if it needs to be picked up or faxed [facility] 36 Patient states he go t out of rehab on 09/25/2022 from his issues of walking . He is requesting a handicap placard and an order for a rolling walker. Normal [facility] CBC with Auto Differentialon 09-23-2022 Absolute Eos # 0.50 High [facility] Absolute Immature Granulocyte 0.03 [facility] Absolute Lymph # 2.87 [facility] Absolute [place] # 0.83 [facility] Basophils (Bld) [#/Vol] 0.05 10*3/uL [facility] Basophils/100 WBC (Bld) 1 % 0 - 2 % [facility] Eosinophils/100 WBC (Bld) 6 % High 1 - 4 % [facility] Hematocrit (Bld) [Volume fraction] 37.1 % Low 40.7 - 50.3 % [facility] Hemoglobin (Bld) [Mass/Vol] 12.5 g/dL Low 13.0 - 17.0 g/dL [facility] Immature granulocytes/100 WBC (Bld) 0 % 0 [facility] Interpretation and review of laboratory results Abnormal [facility] Lymphocytes/100 WBC (Bld) 33 % 24 - 43 % [facility] MCH (RBC) [Entitic mass] 32.2 pg 25.2 - 33.5 pg [facility] MCHC (RBC) [Mass/Vol] 33.7 g/dL 28.4 - 34.8 g/dL [facility] MCV (RBC) [Entitic vol] 95.6 fL 82.6 - 102.9 fL [facility] Monocytes/100 WBC (Bld) 10 % 3 - 12 % B ON [facility] NRBC Automated 0.0 0.0 per 100 WBC [facility] Platelet distribution width (Bld) [Ratio] 13.2 % 11.8 - 14.4 % [facility] Platelet mean volume (Bld) [Entitic vol] 10.3 fL 8.1 - 13.5 fL [facility] Platelets (Bld) [#/Vol] 143 10*3/uL [facility] RBC (Bld) [#/Vol] 3.88 10*6/uL Low 4.21 - 5.7 7 m/uL [facility] Segmented neutrophils/100 WBC (Bld) 51 % 36 - 65 % [facility] Segs Absolute 4.38 [facility] WBC (Bld) [#/Vol] 8.7 10*3/uL [facility] CBC with Diffon 09-23-2022 Abs. Basophil 0.05 k/uL Normal 0.00-0.20 [facility] Comment on above: Performed By: #### C DP, IPF, BMPX #### [facility] [address] [place], [place] [id number] Belt Splicer: Jabari Padgett MD Abs.Imm.Granulocyte 0.03 k/uL Normal 0.00-0.30 [facility] Comment on above: Performed By: #### C DP, IPF, BMPX #### [address] [place], [place] [id number] Belt Splicer: Jabari Padgett MD Abs.Neutrophil (Seg) 4.38 k/uL Normal 1.50-8.10 [facility] Comment on above: Performed By: #### C DP, IPF, BMPX #### [address] [place], [place] [address] Belt Splicer: Jabari Padgett MD Basophils/100 WBC (Bld) 1 % Normal 0-2 [facility] Comment on above: Performed By: #### C DP, IPF, BMPX #### [address] [place] [address] Belt Splicer: Jabari Padgett MD Eosinophils (Bld) [#/Vol] 0.50 10*3/uL High 0.00-0.44 [facility] Comment on above: Performed By: #### C DP, IPF, BMPX #### [facility] [address] [place], [place] [id number] Belt Splicer: Jabari Padgett MD Eosinophils/100 WBC (Bld) 6 % High 1-4 [facility] Comment on above: Performed By: #### C DP, IPF, BMPX #### [facility] [address] [place] [address] Belt Splicer: Jabari Padgett MD Erythrocyte distribution width (RBC) [Ratio] 13.2 % Normal 11.8-14.4 [facility] Comment on above: Performed By: #### C DP, IPF, BMPX #### [facility] [address] [place], [place] [address] Belt Splicer: Jabari Padgett MD Hematocrit (Bld) [Volume fraction] 37.1 % Low 40.7-50.3 [facility] Comment on above: Performed By: #### C DP, IPF, BMPX #### [address] [place] [address] Belt Splicer: Jabari Padgett MD Hemoglobin (Bld) [Mass/Vol] 12.5 g/dL Low 13.0-17.0 [facility] Comment on above: Performed By: #### C DP, IPF, BMPX #### [address] [place], [place] [address] Belt Splicer: Jabari Padgett MD Immature granulocytes/100 WBC (Bld) 0 % Normal 0 [facility] Comment on above: Performed By: #### C DP, IPF, BMPX #### [address] [place], [facility] Belt Splicer: Jabari Padgett MD Lymphocytes (Bld) [#/Vol] 2.87 10*3/uL Normal 1.10-3.70 [facility] Comment on above: Performed By: #### C DP, IPF, BMPX #### [facility] [address] [place] [address] Belt Splicer: Jabari Padgett MD Lymphocytes/100 WBC (Bld) 33 % Normal 24-43 [facility] Comment on above: Performed By: #### C DP, IPF, BMPX #### [facility] [address] [place], [facility] Belt Splicer: Jabari Padgett MD MCH (RBC) [Entitic mass] 32.2 pg Normal 25.2-33.5 [facility] Comment on above: Performed By: #### C DP, IPF, BMPX #### [address] [place], [place] [address] Belt Splicer: Jabari Padgett MD MCHC (RBC) [Mass/Vol] 33.7 g/dL Normal 28.4-34.8 [facility] Comment on above: Performed By: #### C DP, IPF, BMPX #### [address] [place], [facility] Belt Splicer: Jabari Padgett MD MCV (RBC) [Entitic vol] 95.6 fL Normal 82.6-102.9 [facility] Comment on above: Performed By: #### C DP, IPF, BMPX #### [address] [place], [facility] Belt Splicer: Jabari Padgett MD Monocytes (Bld) [#/Vol] 0.83 10*3/uL Normal 0.10-1.20 [facility] Comment on above: Performed By: #### C DP, IPF, BMPX #### [address] [place], [facility] Belt Splicer: Jabari Padgett MD Monocytes/100 WBC (Bld) 10 % Normal 3-12 [facility] Comment on above: Performed By: #### C DP, IPF, BMPX #### [address] [place], [facility] Belt Splicer: Jabari Padgett MD Neutrophil (Seg) 51 % Normal 36-65 [facility] Comment on above: Performed By: #### C DP, IPF, BMPX #### [facility] [address] [place], [place] [phone] Belt Splicer: Jabari Padgett MD NRBC Automated 0.0 per 100 WBC Normal 0.0 [facility] Comment on above: Performed By: #### C DP, IPF, BMPX #### [facility] [address] [place], [place] [phone] Belt Splicer: Jabair Padgett MD Platelet mean volume (Bld) [Entitic vol] 10.3 fL Normal 8.1-13.5 [facility] Comment on above: Performed By: #### C DP, IPF, BMPX #### [address] [place], [place] [address] Belt Splicer: Jabari Padgett MD Platelets (Bld) [#/Vol] 143 10*3/uL Normal 138-453 [facility] Comment on above: Performed By: #### C DP, IPF, BMPX #### [address] [place], [place] [address] Belt Splicer: Jabari Padgett MD RBC (Bld) [#/Vol] 3.88 10*6/uL Low 4.21-5.77 [facility] Comment on above: Performed By: #### C DP, IPF, BMPX #### [address] [place], [facility] Belt Splicer: Jabari Padgett MD WBC (Bld) [#/Vol] 8.7 10*3/uL Normal 3.5-11.3 [facility] Comment on above: Performed By: #### C DP, IPF, BMPX #### [facility] [address] [place] [address] Belt Splicer: Jabari Padgett MD Comp Metabolic Profon 2022 Albumin [Mass/Vol] 3.3 g/dL Low 3.5-5.2 [facility] Comment on above: Performed By: #### C DP, IPF, BMPX #### [facility] [address] [place], [place] [address] Belt Splicer: Jabari Padgett MD Albumin/Glob Ratio 1.0 Normal 1.0-2.5 [facility] Comment on above: Performed By: #### C DP, IPF, BMPX #### [facility] [address] [place], [place] [address] Belt Splicer: Jabari Padgett MD Alkaline Phos 111 U/L Normal 40-129 [facility] Comment on above: Performed By: #### C DP, IPF, BMPX #### [facility] [address] [place], [place] [address] Belt Splicer: Jabari Padgett MD ALT [Catalytic activity/Vol] 26 U/L Normal 5-41 [facility] Comment on above: Performed By: #### C DP, IPF, BMPX #### [address] [place], [place] [address] Belt Splicer: Jabari Padgett MD Anion gap [Moles/Vol] 8 mmol/L Low 9-17 [facility] Comment on above: Performed By: #### C DP, IPF, BMPX #### [address] [place], [place] [address] Belt Splicer: Jabari Padgett MD AST [Catalytic activity/Vol] 19 U/L Normal <40 [facility] Comment on above: Performed By: #### C DP, IPF, BMPX #### [facility] [address] [place], [place] [address] Belt Splicer: Jabari Padgett MD Bilirubin [Mass/Vol] 0.3 mg/dL Normal 0.3-1.2 [facility] Comment on above: Performed By: #### C DP, IPF, BMPX #### [facility] [address] [place] [address] [place] [address] Belt Splicer: Jabari Padgett MD BUN/CRE Ratio 17 Normal 9-20 [facility] Comment on above: Performed By: #### C DP, IPF, BMPX #### [facility] [address] [place], [place] [address] Belt Splicer: Jabari Padgett MD Calcium [Mass/Vol] 8.9 mg/dL Normal 8.6-10.4 [facility] Comment on above: Performed By: #### C DP, IPF, BMPX #### [facility] [address] [place], [place] [address] Belt Splicer: Jabari Padgett MD Chloride [Moles/Vol] 101 mmol/L Normal 98-107 [facility] Comment on above: Performed By: #### C DP, IPF, BMPX #### [facility] [address] [place] [address] Belt Splicer: Jabari Padgett MD CO2 [Moles/Vol] 29 mmol/L Normal 20-31 [facility] Comment on above: Performed By: #### C DP, IPF, BMPX #### [facility] [address] [place] [address] Belt Splicer: Jabari Padgett MD Creatinine [Mass/Vol] 2.57 mg/dL High 0.70-1.20 [facility] Comment on above: Performed By: #### C DP, IPF, BMPX #### [facility] [address] [place] [address] Belt Splicer: Jabari Padgett MD GFR/1.73 sq M.predicted among non-blacks MDRD (S/P/Bld) [Vol rate/Area] 25 mL/min/{1.73_m2} Low >60 [facility] Comment on above: Result Comment: These [...] renal tubular secretion. Performed By: #### C DPAMBERLY, BMPX #### [facility] [address] [place], [place] [address] Belt Splicer: Jabari Padgett MD Glucose [Mass/Vol] 179 mg/dL High 70-99 [facility] Comment on above: Performed By: #### C DP IPF, BMPX #### [facility] [address] [place], [place] [address] Belt Splicer: Jabari Padgett MD Potassium [Moles/Vol] 4.2 mmol/L Normal 3.7-5.3 [facility] Comment on above: Performed By: #### C DEENA IPF, BMPX #### [facility] [address] [place] [address] Belt Splicer: Jabari Padgett MD Protein [Mass/Vol] 6.7 g/dL Normal 6.4-8.3 [facility] Comment on above: Performed By: #### C DEENA IPF, BMPX #### [address] [place], [place] [address] Belt Splicer: Jabari Padgett MD Sodium [Moles/Vol] 138 mmol/L Normal 135-144 [facility] Comment on above: Performed By: #### C DP IPF, BMPX #### [facility] [address] [place] [address] Belt Splicer: Jabari Padgett MD Urea nitrogen [Mass/Vol] 43 mg/dL High 8-23 [facility] Comment on above: Performed By: #### C DP, IPF, BMPX #### [facility] [address] [place], [place] [address] Belt Splicer: Jabari Padgett MD [facility] Metabolic Pane [facility] 09-23-2022 Albumin [Mass/Vol] 3.3 g/dL Low 3.5 - 5.2 g/dL [facility] Albumin/Globulin [Mass ratio] 1.0 {ratio} 1.0 - 2.5 [facility] ALP [Catalytic activity/Vol] 111 U/L 40 - 129 U/L [facility] ALT [Catalytic activity/Vol] 26 U/L 5 - 41 U/L [facility] Anion gap [Moles/Vol] 8 mmol/L Low 9 - 17 mmol/L [facility] AST [Catalytic activity/Vol] 19 U/L NINF - 40 U/L [facility] Bilirubin [Mass/Vol] 0.3 mg/dL 0.3 - 1 .2 mg/dL [facility] Calcium [Mass/Vol] 8.9 mg/dL 8.6 - 10. 4 mg/dL [facility] Chloride [Moles/Vol] 101 mmol/L 98 - 10 7 mmol/L [facility] CO2 [Moles/Vol] 29 mmol/L 20 - 31 mmol/L [facility] Creatinine [Mass/Vol] 2.57 mg/dL High 0.70 - 1.20 mg/dL [facility] GFR/1.73 sq M.predicted MDRD (S/P/Bld) [Vol rate/Area] 25 mL/min/{1.73_m2} Low - PINF [facility] Comment on above: These results are [...] 179 mg/dL High 70 - 99 mg/dL [facility] Interpretation and review of laboratory results Abnormal [facility] Potassium [Moles/Vol] 4.2 mmol/L 3.7 - 5.3 mmol/L [facility] Protein [Mass/Vol] 6.7 g/dL 6.4 - 8.3 g/dL [facility] Sodium [Moles/Vol] 138 mmol/L 135 - 144 mmol/L [facility] Urea nitrogen [Mass/Vol] 43 mg/dL High 8 - 23 mg/dL [facility] Urea nitrogen/Creatinine (Bld) [Mass ratio] 17 9 - 20 [facility] CBC with Auto Differentialon 09-16-2022 Absolute Eos # 0.23 [facility] Immature Granulocyte [facility] Absolute Lymph # 2.28 [facility] Absolute [place] # 0.81 [facility] Basophils (Bld) [#/Vol] 0.04 10*3/uL [facility] Basophils/100 WBC (Bld) 1 % 0 - 2 % [facility] Eosinophils/100 WBC (Bld) 3 % 1 - 4 % [facility] Hematocrit (Bld) [Volume fraction] 35.5 % Low 40.7 - 50.3 % [facility] Hemoglobin (Bld) [Mass/Vol] 12.5 g/dL Low 13.0 - 17.0 g/dL [facility] Immature granulocytes/100 WBC (Bld) 0 % 0 [facility] Interpretation and review of laboratory results Abnormal [facility] Lymphocytes/100 WBC (Bld) 29 % 24 - 43 % [facility] MCH (RBC) [Entitic mass] 31.7 pg 25.2 - 33.5 pg [facility] MCHC (RBC) [Mass/Vol] 35.2 g/dL High 28.4 - 34.8 g/dL [facility] MCV (RBC) [Entitic vol] 90.1 fL 82.6 - 102.9 fL [facility] Monocytes/100 WBC (Bld) 10 % 3 - 12 % [facility] NRBC Automated 0.0 0.0 per 100 WBC [facility] Platelet distribution width (Bld) [Ratio] 12.9 % 11.8 - 14.4 % [facility] Platelet mean volume (Bld) [Entitic vol] 10.3 fL 8.1 - 13.5 fL [facility] Platelets (Bld) [#/Vol] 160 10*3/uL [facility] RBC (Bld) [#/Vol] 3.94 10*6/uL Low 4.21 - 5.7 7 m/uL [facility] Segmented neutrophils/100 WBC (Bld) 57 % 36 - 65 % [facility] Segs Absolute 4.39 [facility] WBC (Bld) [#/Vol] 7.8 10*3/uL [facility] CBC with Diffon 09-16-2022 Abs. Basophil 0.04 k/uL Normal 0.00-0.20 [facility] Comment on above: Performed By: #### C DP, CP #### [address] [place] [address] Belt Splicer: Jabari Padgett MD Abs.Imm.Granulocyte <0.03 Normal 0.00-0.30 [facility] Comment on above: Performed By: #### C DP, CP #### [address] [place] [address] Belt Splicer: Jabari Padgett MD Abs.Neutrophil (Seg) 4.39 k/uL Normal 1.50-8.10 [facility] Comment on above: Performed By: #### C DP, CP #### [address] [place] [address] Belt Splicer: Jabari Padgett MD Basophils/100 WBC (Bld) 1 % Normal 0-2 [facility] Comment on above: Performed By: #### C DP, CP #### [address] [place] [address] Belt Splicer: Jabari Padgett MD Eosinophils (Bld) [#/Vol] 0.23 10*3/uL Normal 0.00-0.44 [facility] Comment on above: Performed By: #### C DP, CP #### [facility] [address] [place] [address] Belt Splicer: Jabari Padgett MD Eosinophils/100 WBC (Bld) 3 % Normal 1-4 [facility] Comment on above: Performed By: #### C DP, CP #### [facility] [address] [place], [place] [id number] Belt Splicer: Jabari Padgett MD Erythrocyte distribution width (RBC) [Ratio] 12.9 % Normal 11.8-14.4 [facility] Comment on above: Performed By: #### C DP, CP #### [address] [place] [id number] Belt Splicer: Jabari Padgett MD Hematocrit (Bld) [Volume fraction] 35.5 % Low 40.7-50.3 [facility] Comment on above: Performed By: #### C DP, CP #### [facility] [address] [place] [address] Dr. [place], [id number] Belt Splicer: Jabari Padgett MD Hemoglobin (Bld) [Mass/Vol] 12.5 g/dL Low 13.0-17.0 [facility] Comment on above: Performed By: #### C DP, CP #### [address] [place], [id number] Belt Splicer: Jabari Padgett MD Immature granulocytes/100 WBC (Bld) 0 % Normal 0 [facility] Comment on above: Performed By: #### C DP, CP #### [facility] [address] [place], [id number] Belt Splicer: Jabari Padgett MD Lymphocytes (Bld) [#/Vol] 2.28 10*3/uL Normal 1.10-3.70 [facility] Comment on above: Performed By: #### C DP, CP #### [facility] [address] [place] [address] Dr. [place], [id number] Belt Splicer: Jabari Padgett MD Lymphocytes/100 WBC (Bld) 29 % Normal 24-43 [facility] Comment on above: Performed By: #### C DP, CP #### [address] [place] [address] Belt Splicer: Jabari Padgett MD MCH (RBC) [Entitic mass] 31.7 pg Normal 25.2-33.5 [facility] Comment on above: Performed By: #### C DP, CP #### [address] [place] [address] Belt Splicer: Jabari Padgett MD MCHC (RBC) [Mass/Vol] 35.2 g/dL High 28.4-34.8 [facility] Comment on above: Performed By: #### C DP, CP #### [address] [place] [address] Belt Splicer: Jabari Padgett MD MCV (RBC) [Entitic vol] 90.1 fL Normal 82.6-102.9 [facility] Comment on above: Performed By: #### C DP, CP #### [address] [place] [address] Belt Splicer: Jabari Padgett MD Monocytes (Bld) [#/Vol] 0.81 10*3/uL Normal 0.10-1.20 [facility] Comment on above: Performed By: #### C DP, CP #### [address] [place], [place] [id number] Belt Splicer: Jabari Padgett MD Monocytes/100 WBC (Bld) 10 % Normal 3-12 [facility] Comment on above: Performed By: #### C DP, CP #### [address] [place] [address] Belt Splicer: Jabari Padgett MD Neutrophil (Seg) 57 % Normal 36-65 [facility] Comment on above: Performed By: #### C DP, CP #### [facility] [address] [place], [place] [id number] Belt Splicer: Jabari Padgett MD NRBC Automated 0.0 per 100 WBC Normal 0.0 [facility] Comment on above: Performed By: #### C DP, CP #### [facility] [address] [place], [id number] Belt Splicer: Jabari Padgett MD Platelet mean volume (Bld) [Entitic vol] 10.3 fL Normal 8.1-13.5 [facility] Comment on above: Performed By: #### C DP, CP #### [facility] [address] [place], [id number] Belt Splicer: Jabari Padgett MD Platelets (Bld) [#/Vol] 160 10*3/uL Normal 138-453 [facility] Comment on above: Performed By: #### C DP, CP #### [facility] [address] [place], [place] [id number] Belt Splicer: Jabari Padgett MD RBC (Bld) [#/Vol] 3.94 10*6/uL Low 4.21-5.77 [facility] Comment on above: Performed By: #### C DP, CP #### [address] [place], [place] [address] Belt Splicer: Jabari Padgett MD WBC (Bld) [#/Vol] 7.8 10*3/uL Normal 3.5-11.3 [facility] Comment on above: Performed By: #### C DP, CP #### [facility] [address] [place] [address] Belt Splicer: Jabari Padgett MD Comp Metabolic Profon 2022 Albumin [Mass/Vol] 3.1 g/dL Low 3.5-5.2 [facility] Comment on above: Performed By: #### C DP, CP #### [facility] [address] [place], [place] [id number] Belt Splicer: Jabari Padgett MD Albumin/Glob Ratio 0.9 Low 1.0-2.5 [facility] Comment on above: Performed By: #### C DP, CP #### [facility] [address] [place], [place] [phone] Belt Splicer: Jabari Padgett MD Alkaline Phos 120 U/L Normal 40-129 [facility] Comment on above: Performed By: #### C DP, CP #### [facility] [address] [place], [place] [id number] Belt Splicer: Jabari Padgett MD ALT [Catalytic activity/Vol] 27 U/L Normal 5-41 [facility] Comment on above: Performed By: #### C DP, CP #### [facility] [address] [place], [place] [phone] Belt Splicer: Jabari Padgett MD Anion gap [Moles/Vol] 9 mmol/L Normal 9-17 [facility] Comment on above: Performed By: #### C DP, CP #### [facility] [address] [place], [place] 2223283 Belt Splicer: Jabari Padgett MD AST [Catalytic activity/Vol] 21 U/L Normal <40 [facility] Comment on above: Performed By: #### C DP, CP #### [facility] [address] [place], [place] [phone] Belt Splicer: Jabari Padgett MD Bilirubin [Mass/Vol] 0.3 mg/dL Normal 0.3-1.2 [facility] Comment on above: Performed By: #### C DP, CP #### [facility] [address] [place], [place] [phone] Belt Splicer: Jabari Padgett MD BUN/CRE Ratio 19 Normal 9-20 [facility] Comment on above: Performed By: #### C DP, CP #### [facility] [address] [place], [place] [phone] Belt Splicer: Jabari Padgett MD Calcium [Mass/Vol] 8.8 mg/dL Normal 8.6-10.4 [facility] Comment on above: Performed By: #### C DP, CP #### [facility] [address] [place], [place] 1257983 Belt Splicer: Jabari Padgett MD Chloride [Moles/Vol] 101 mmol/L Normal 98-107 [facility] Comment on above: Performed By: #### C DP, CP #### [facility] [address] [place], [place] [phone] Belt Splicer: Jabari Padgett MD CO2 [Moles/Vol] 27 mmol/L Normal 20-31 [facility] Comment on above: Performed By: #### C DP, CP #### [facility] [address] [place], [place] [phone] Belt Splicer: Jabari Padgett MD Creatinine [Mass/Vol] 2.52 mg/dL High 0.70-1.20 [facility] Comment on above: Performed By: #### C DP, CP #### [facility] [address] [place], [place] 0596583 Belt Splicer: Jabari Padgett MD GFR/1.73 sq M.predicted among non-blacks MDRD (S/P/Bld) [Vol rate/Area] 26 mL/min/{1.73_m2} Low >60 [facility] Comment on above: Result Comment: These [...] Performed By: #### C DP, CP #### [facility] [address] [place] [address] Belt Splicer: Jabari Padgett MD Glucose [Mass/Vol] 116 mg/dL High 70-99 [facility] Comment on above: Performed By: #### C DP, CP #### [facility] [address] [place] [address] Belt Splicer: Jabari Padgett MD Potassium [Moles/Vol] 3.9 mmol/L Normal 3.7-5.3 [facility] Comment on above: Performed By: #### C DP, CP #### [facility] [address] [place] [address] Belt Splicer: Jabari Padgett MD Protein [Mass/Vol] 6.6 g/dL Normal 6.4-8.3 [facility] Comment on above: Performed By: #### C DP, CP #### [facility] [address] [place], [place] [phone] Belt Splicer: Jabari Padgett MD Sodium [Moles/Vol] 137 mmol/L Normal 135-144 [facility] Comment on above: Performed By: #### C DP, CP #### [facility] [address] [place] [address] Belt Splicer: Jabari Padgett MD Urea nitrogen [Mass/Vol] 48 mg/dL High 8-23 [facility] Comment on above: Performed By: #### C DP, CP #### [facility] [address] [place] [address] Belt Splicer: Jabari Padgett MD Comprehensive Metabolic Pane [facility] 09-16-2022 Albumin [Mass/Vol] 3.1 g/dL Low 3.5 - 5.2 g/dL [facility] Albumin/Globulin [Mass ratio] 0.9 {ratio} Low 1.0 - 2.5 [facility] ALP [Catalytic activity/Vol] 120 U/L 40 - 129 U/L [facility] ALT [Catalytic activity/Vol] 27 U/L 5 - 41 U/L [facility] Anion gap [Moles/Vol] 9 mmol/L 9 - 17 mmol/L [facility] AST [Catalytic activity/Vol] 21 U/L NINF - 40 U/L [facility] Bilirubin [Mass/Vol] 0.3 mg/dL 0.3 - 1 .2 mg/dL [facility] Calcium [Mass/Vol] 8.8 mg/dL 8.6 - 10. 4 mg/dL [facility] Chloride [Moles/Vol] 101 mmol/L 98 - 10 7 mmol/L [facility] CO2 [Moles/Vol] 27 mmol/L 20 - 31 mmol/L [facility] Creatinine [Mass/Vol] 2.52 mg/dL High 0.70 - 1.20 mg/dL [facility] GFR/1.73 sq M.predicted MDRD (S/P/Bld) [Vol rate/Area] 26 mL/min/{1.73_m2} Low - [facility] Comment on above: These results are [...] 116 mg/dL High 70 - 99 mg/dL [facility] Interpretation and review of laboratory results Abnormal [facility] Potassium [Moles/Vol] 3.9 mmol/L 3.7 - 5.3 mmol/L [facility] Protein [Mass/Vol] 6.6 g/dL 6.4 - 8.3 g/dL [facility] Sodium [Moles/Vol] 137 mmol/L 135 - 144 mmol/L [facility] Urea nitrogen [Mass/Vol] 48 mg/dL High 8 - 23 mg/dL [facility] Urea nitrogen/Creatinine (Bld) [Mass ratio] 19 9 - 20 [facility] CBC with Auto Differentialon 09-09-2022 Absolute Eos # 0.12 [facility] Absolute Immature Granulocyte 0.06 [facility] Absolute Lymph # 1.97 [facility] Absolute [place] # 0.68 [facility] Basophils Absolute [facility] Basophils/100 WBC (Bld) 0 % 0 - 2 % [facility] Eosinophils/100 WBC (Bld) 1 % 1 - 4 % [facility] Hematocrit (Bld) [Volume fraction] 38.0 % Low 40.7 - 50.3 % [facility] Hemoglobin (Bld) [Mass/Vol] 12.8 g/dL Low 13.0 - 17.0 g/dL [facility] Immature granulocytes/100 WBC (Bld) 1 % High 0 [facility] Interpretation and review of laboratory results Abnormal [facility] Lymphocytes/100 WBC (Bld) 22 % Low 24 - 43 % [facility] MCH (RBC) [Entitic mass] 30.7 pg 25.2 - 33.5 pg [facility] MCHC (RBC) [Mass/Vol] 33.7 g/dL 28.4 - 34.8 g/dL [facility] MCV (RBC) [Entitic vol] 91.1 fL 82.6 - 102.9 fL [facility] Monocytes/100 WBC (Bld) 8 % 3 - 12 % [facility] NRBC Automated 0.0 0.0 per 100 WBC [facility] Platelet distribution width (Bld) [Ratio] 12.9 % 11.8 - 14.4 % [facility] Platelet mean volume (Bld) [Entitic vol] 10.5 fL 8.1 - 13.5 fL [facility] Platelets (Bld) [#/Vol] 164 10*3/uL [facility] RBC (Bld) [#/Vol] 4.17 10*6/uL Low 4.21 - 5.7 7 m/uL [facility] Segmented neutrophils/100 WBC (Bld) 68 % High 36 - 65 % [facility] Segs Absolute 6.11 [facility] WBC (Bld) [#/Vol] 9.0 10*3/uL [facility] CBC with Diffon 09-09-2022 Abs. Basophil <0.03 Normal 0.00-0.20 [facility] Comment on above: Performed By: #### C DP, CP #### [facility] [address] [place] [address] Belt Splicer: Jabari Padgett MD Abs.Imm.Granulocyte 0.06 k/uL Normal 0.00-0.30 [facility] Comment on above: Performed By: #### C DP, CP #### [address] [place] [address] Belt Splicer: Jabari Padgett MD Abs.Neutrophil (Seg) 6.11 k/uL Normal 1.50-8.10 [facility] Comment on above: Performed By: #### C DP, CP #### [address] [place], [place] [address] Belt Splicer: Jabari Padgett MD Basophils/100 WBC (Bld) 0 % Normal 0-2 [facility] Comment on above: Performed By: #### C DP, CP #### [address] [place], [place] [address] Belt Splicer: Jabari Padgett MD Eosinophils (Bld) [#/Vol] 0.12 10*3/uL Normal 0.00-0.44 [facility] Comment on above: Performed By: #### C DP, CP #### [facility] [address] [place] [address] Belt Splicer: Jabari Padgett MD Eosinophils/100 WBC (Bld) 1 % Normal 1-4 [facility] Comment on above: Performed By: #### C DP, CP #### [facility] [address] [place], [place] [phone] Belt Splicer: Jabari Padgett MD Erythrocyte distribution width (RBC) [Ratio] 12.9 % Normal 11.8-14.4 [facility] Comment on above: Performed By: #### C DP, CP #### [address] [place], [place] [phone] Belt Splicer: Jabari Padgett MD Hematocrit (Bld) [Volume fraction] 38.0 % Low 40.7-50.3 [facility] Comment on above: Performed By: #### C DP, CP #### [address] [place], [facility] Belt Splicer: Jabari Padgett MD Hemoglobin (Bld) [Mass/Vol] 12.8 g/dL Low 13.0-17.0 [facility] Comment on above: Performed By: #### C DP, CP #### [address] [place], [facility] Belt Splicer: Jabari Padgett MD Immature granulocytes/100 WBC (Bld) 1 % High 0 [facility] Comment on above: Performed By: #### C DP, CP #### [address] [place], [facility] Belt Splicer: Jabari Padgett MD Lymphocytes (Bld) [#/Vol] 1.97 10*3/uL Normal 1.10-3.70 [facility] Comment on above: Performed By: #### C DP, CP #### [address] [place], [place] [phone] Belt Splicer: Jabari Padgett MD Lymphocytes/100 WBC (Bld) 22 % Low 24-43 [facility] Comment on above: Performed By: #### C DP, CP #### [facility] [address] [place] [address] Dr. [place], [id number] Belt Splicer: Jabari Padgett MD MCH (RBC) [Entitic mass] 30.7 pg Normal 25.2-33.5 [facility] Comment on above: Performed By: #### C DP, CP #### [facility] [address] [place] [address] [place], [place] [phone] Belt Splicer: Jabari Padgett MD MCHC (RBC) [Mass/Vol] 33.7 g/dL Normal 28.4-34.8 [facility] Comment on above: Performed By: #### C DP, CP #### [address] [place], [place] 0243483 Belt Splicer: Jabari Padgett MD MCV (RBC) [Entitic vol] 91.1 fL Normal 82.6-102.9 [facility] Comment on above: Performed By: #### C DP, CP #### [address] [place], [place] 5960583 Belt Splicer: Jabari Padgett MD Monocytes (Bld) [#/Vol] 0.68 10*3/uL Normal 0.10-1.20 [facility] Comment on above: Performed By: #### C DP, CP #### [address] [place], [place] [phone] Belt Splicer: Jabari Padgett MD Monocytes/100 WBC (Bld) 8 % Normal 3-12 [facility] Comment on above: Performed By: #### C DP, CP #### [address] [place] [address] Belt Splicer: Jabari Padgett MD Neutrophil (Seg) 68 % High 36-65 [facility] Comment on above: Performed By: #### C DP, CP #### [address] [place], [place] [phone] Belt Splicer: Jabari Padgett MD NRBC Automated 0.0 per 100 WBC Normal 0.0 [facility] Comment on above: Performed By: #### C DP, CP #### [facility] [address] [place], [place] [phone] Belt Splicer: Jabari Padgett MD Platelet mean volume (Bld) [Entitic vol] 10.5 fL Normal 8.1-13.5 [facility] Comment on above: Performed By: #### C DP, CP #### [facility] [address] [place], [place] [phone] Belt Splicer: Jabari Padgett MD Platelets (Bld) [#/Vol] 164 10*3/uL Normal 138-453 [facility] Comment on above: Performed By: #### C DP, CP #### [facility] [address] [place], [place] [phone] Belt Splicer: Jabari Padgett MD RBC (Bld) [#/Vol] 4.17 10*6/uL Low 4.21-5.77 [facility] Comment on above: Performed By: #### C DP, CP #### [facility] [address] [place], [place] [id number] Belt Splicer: Jabari Padgett MD WBC (Bld) [#/Vol] 9.0 10*3/uL Normal 3.5-11.3 [facility] Comment on above: Performed By: #### C DP, CP #### [facility] [address] [place], [place] [phone] Belt Splicer: Jabari Pdagett MD Comp Metabolic Profon 2022 Albumin [Mass/Vol] 3.1 g/dL Low 3.5-5.2 [facility] Comment on above: Performed By: #### C DP, CP #### [facility] [address] [place] [address] Belt Splicer: Jabari Padgett MD Albumin/Glob Ratio 0.8 Low 1.0-2.5 [facility] Comment on above: Performed By: #### C DP, CP #### [facility] [address] [place], [place] [phone] Belt Splicer: Jabari Padgett MD Alkaline Phos 136 U/L High 40-129 [facility] Comment on above: Performed By: #### C DP, CP #### [facility] [address] [place], [place] [phone] Belt Splicer: Jabari Padgett MD ALT [Catalytic activity/Vol] 34 U/L Normal 5-41 [facility] Comment on above: Performed By: #### C DP, CP #### [facility] [address] [place], [place] [phone] Belt Splicer: Jabari Padgett MD Anion gap [Moles/Vol] 9 mmol/L Normal 9-17 [facility] Comment on above: Performed By: #### C DP, CP #### [facility] [address] [place], [place] 1635383 Belt Splicer: Jabari Padgett MD AST [Catalytic activity/Vol] 24 U/L Normal <40 [facility] Comment on above: Performed By: #### C DP, CP #### [facility] [address] [place], [place] [phone] Belt Splicer: Jabari Padgett MD Bilirubin [Mass/Vol] 0.4 mg/dL Normal 0.3-1.2 [facility] Comment on above: Performed By: #### C DP, CP #### [facility] [address] [place], [place] 9907583 Belt Splicer: Jabari Padgett MD BUN/CRE Ratio 23 High 9-20 [facility] Comment on above: Performed By: #### C DP, CP #### [facility] [address] [place], [place] 5952383 Belt Splicer: Jabari Padgett MD Calcium [Mass/Vol] 9.1 mg/dL Normal 8.6-10.4 [facility] Comment on above: Performed By: #### C DP, CP #### [facility] [address] [place], [place] 099[address]3 Belt Splicer: Jabari Padgett MD Chloride [Moles/Vol] 105 mmol/L Normal 98-107 [facility] Comment on above: Performed By: #### C DP, CP #### [facility] [address] [place], [place] [phone] Belt Splicer: Jabari Padgett MD CO2 [Moles/Vol] 25 mmol/L Normal 20-31 [facility] Comment on above: Performed By: #### C DP, CP #### [facility] [address] [place], [place] [phone] Belt Splicer: Jabari Padgett MD Creatinine [Mass/Vol] 2.78 mg/dL High 0.70-1.20 [facility] Comment on above: Performed By: #### C DP, CP #### [facility] [address] [place], [place] [phone] Belt Splicer: Jabari Padgett MD GFR/1.73 sq M.predicted among non-blacks MDRD (S/P/Bld) [Vol rate/Area] 23 mL/min/{1.73_m2} Low >60 [facility] Comment on above: Result Comment: These [...] Performed By: #### C DP, CP #### [facility] [address] [place], [place] [phone] Belt Splicer: Jabari Padgett MD Glucose [Mass/Vol] 175 mg/dL High 70-99 [facility] Comment on above: Performed By: #### C DP, CP #### [facility] [address] [place] [address] Belt Splicer: Jabari Padgett MD Potassium [Moles/Vol] 4.5 mmol/L Normal 3.7-5.3 [facility] Comment on above: Performed By: #### C DP, CP #### [facility] [address] [place], [place] [phone] Belt Splicer: Jabari Padgett MD Protein [Mass/Vol] 6.8 g/dL Normal 6.4-8.3 [facility] Comment on above: Performed By: #### C DP, CP #### [facility] [address] [place], [place] [phone] Belt Splicer: Jabari Padgett MD Sodium [Moles/Vol] 139 mmol/L Normal 135-144 [facility] Comment on above: Performed By: #### C DP, CP #### [facility] [address] [place], [place] [phone] Belt Splicer: Jabari Padgett MD Urea nitrogen [Mass/Vol] 65 mg/dL High 8-23 [facility] Comment on above: Performed By: #### C DP, CP #### [facility] [address] [place] [address] Belt Splicer: Jabari Padgett MD Comprehensive Metabolic Pane [facility] 09-09-2022 Albumin [Mass/Vol] 3.1 g/dL Low 3.5 - 5.2 g/dL [facility] Albumin/Globulin [Mass ratio] 0.8 {ratio} Low 1.0 - 2.5 [facility] ALP [Catalytic activity/Vol] 136 U/L High 40 - 129 U/L [facility] ALT [Catalytic activity/Vol] 34 U/L 5 - 41 U/L [facility] Anion gap [Moles/Vol] 9 mmol/L 9 - 17 mmol/L [facility] AST [Catalytic activity/Vol] 24 U/L NINF - 40 U/L [facility] Bilirubin [Mass/Vol] 0.4 mg/dL 0.3 - 1 .2 mg/dL [facility] Calcium [Mass/Vol] 9.1 mg/dL 8.6 - 10. 4 mg/dL [facility] Chloride [Moles/Vol] 105 mmol/L 98 - 10 7 mmol/L [facility] CO2 [Moles/Vol] 25 mmol/L 20 - 31 mmol/L [facility] Creatinine [Mass/Vol] 2.78 mg/dL High 0.70 - 1.20 mg/dL [facility] GFR/1.73 sq M.predicted MDRD (S/P/Bld) [Vol rate/Area] 23 mL/min/{1.73_m2} Low - [facility] Comment on above: These results are [...] 175 mg/dL High 70 - 99 mg/dL [facility] Interpretation and review of laboratory results Abnormal [facility] Potassium [Moles/Vol] 4.5 mmol/L 3.7 - 5.3 mmol/L [facility] Protein [Mass/Vol] 6.8 g/dL 6.4 - 8.3 g/dL [facility] Sodium [Moles/Vol] 139 mmol/L 135 - 144 mmol/L [facility] Urea nitrogen [Mass/Vol] 65 mg/dL High 8 - 23 mg/dL [facility] Urea nitrogen/Creatinine (Bld) [Mass ratio] 23 High 9 - 20 [facility] Basic Metab w/rfx MGon 08-31 Anion gap [Moles/Vol] 7 mmol/L Low 9-17 [facility] Comment on above: Performed By: #### C DP, IPF, BMPX #### [facility] [address] [place] [address] Belt Splicer: Jabari Padgett MD BUN/CRE Ratio 18 Normal 9-20 [facility] Comment on above: Performed By: #### C DP, IPF, BMPX #### [facility] [address] [place], [place] [id number] Belt Splicer: Jabari Padgett MD Calcium [Mass/Vol] 8.8 mg/dL Normal 8.6-10.4 [facility] Comment on above: Performed By: #### C DP, IPF, BMPX #### [facility] [address] [place], [place] [id number] Belt Splicer: Jabari Padgett MD Chloride [Moles/Vol] 95 mmol/L Low 98-107 [facility] Comment on above: Performed By: #### C DP, IPF, BMPX #### [facility] [address] [place], [place] [id number] Belt Splicer: Jabari Padgett MD CO2 [Moles/Vol] 32 mmol/L High 20-31 [facility] Comment on above: Performed By: #### C DP, IPF, BMPX #### [facility] [address] [place], [place] [id number] Belt Splicer: Jabari Padgett MD Creatinine [Mass/Vol] 2.23 mg/dL High 0.70-1.20 [facility] Comment on above: Performed By: #### C DP, IPF, BMPX #### [facility] [address] [place] [address] Belt Splicer: Jabari Padgett MD GFR/1.73 sq M.predicted among non-blacks MDRD (S/P/Bld) [Vol rate/Area] 30 mL/min/{1.73_m2} Low >60 [facility] Comment on above: Result Comment: These [...] tubular secretion. Performed By: #### C DP, IPF, BMPX #### [address] [place] [address] Belt Splicer: Jabari Padgett MD Glucose [Mass/Vol] 221 mg/dL High 70-99 [facility] Comment on above: Performed By: #### C DP, IPF, BMPX #### [address] [place], [place] [id number] Belt Splicer: Jabari Padgett MD Potassium [Moles/Vol] 4.2 mmol/L Normal 3.7-5.3 [facility] Comment on above: Performed By: #### C DP, IPF, BMPX #### [address] [place], [place] [id number] Belt Splicer: Jabari Padgett MD Sodium [Moles/Vol] 134 mmol/L Low 135-144 [facility] Comment on above: Performed By: #### C DP IPF, BMPX #### [address] [place] [address] Belt Splicer: Jabari Padgett MD Urea nitrogen [Mass/Vol] 41 mg/dL High 8-23 [facility] Comment on above: Performed By: #### C DP, IPF, BMPX #### [address] [place] [address] Belt Splicer: Jabari Padgett MD CBC with Diffon 08-31-2022 Abs. Basophil 0.03 k/uL Normal 0.00-0.20 [facility] Comment on above: Performed By: #### C DP, IPF, BMPX #### [facility] [address] [place], [facility] Belt Splicer: Jabari Padgett MD Abs.Imm.Granulocyte 0.03 k/uL Normal 0.00-0.30 [facility] Comment on above: Performed By: #### C DP, IPF, BMPX #### [address] [place], [place] [address] Belt Splicer: Jabari Padgett MD Abs.Neutrophil (Seg) 4.71 k/uL Normal 1.50-8.10 [facility] Comment on above: Performed By: #### C DP, IPF, BMPX #### [address] [place], [place] [address] Belt Splicer: Jabari Padgett MD Basophils/100 WBC (Bld) 0 % Normal 0-2 [facility] Comment on above: Performed By: #### C DP, IPF, BMPX #### [address] [place], [place] [address] Belt Splicer: Jabari Padgett MD Eosinophils (Bld) [#/Vol] 0.11 10*3/uL Normal 0.00-0.44 [facility] Comment on above: Performed By: #### C DP, IPF, BMPX #### [address] [place], [place] [address] Belt Splicer: Jabari Padgett MD Eosinophils/100 WBC (Bld) 2 % Normal 1-4 [facility] Comment on above: Performed By: #### C DP, IPF, BMPX #### [address] [place] [address] Belt Splicer: Jabari Padgett MD Erythrocyte distribution width (RBC) [Ratio] 12.9 % Normal 11.8-14.4 [facility] Comment on above: Performed By: #### C DP, IPF, BMPX #### [address] [place], [place] [phone] Belt Splicer: Jabari Padgett MD Hematocrit (Bld) [Volume fraction] 37.8 % Low 40.7-50.3 [facility] Comment on above: Performed By: #### C DP, IPF, BMPX #### [address] [place], [place] [phone] Belt Splicer: Jabari Padgett MD Hemoglobin (Bld) [Mass/Vol] 13.1 g/dL Normal 13.0-17.0 [facility] Comment on above: Performed By: #### C DP, IPF, BMPX #### [address] [place] [id number] Belt Splicer: Jabari Padgett MD Immature granulocytes/100 WBC (Bld) 0 % Normal 0 [facility] Comment on above: Performed By: #### C DP, IPF, BMPX #### [address] [place], [facility] Belt Splicer: Jabari Padgett MD Lymphocytes (Bld) [#/Vol] 1.59 10*3/uL Normal 1.10-3.70 [facility] Comment on above: Performed By: #### C DP, IPF, BMPX #### [address] [place] [id number] Belt Splicer: Jabari Padgett MD Lymphocytes/100 WBC (Bld) 22 % Low 24-43 [facility] Comment on above: Performed By: #### C DP, IPF, BMPX #### [address] [place], [place] 6322083 Belt Splicer: Jabari Padgett MD MCH (RBC) [Entitic mass] 31.3 pg Normal 25.2-33.5 [facility] Comment on above: Performed By: #### C DP, IPF, BMPX #### [address] [place], [place] 135[address] Belt Splicer: Jabari Padgett MD MCHC (RBC) [Mass/Vol] 34.7 g/dL Normal 28.4-34.8 [facility] Comment on above: Performed By: #### C DP, IPF, BMPX #### [facility] [address] [place] [address] [place] [address] Belt Splicer: Jabari Padgett MD MCV (RBC) [Entitic vol] 90.2 fL Normal 82.6-102.9 [facility] Comment on above: Performed By: #### C DP, IPF, BMPX #### [address] [place], [place] 0160[address] Belt Splicer: Jabari Padgett MD Monocytes (Bld) [#/Vol] 0.73 10*3/uL Normal 0.10-1.20 [facility] Comment on above: Performed By: #### C DP, IPF, BMPX #### [address] [place], [place] [id number] Belt Splicer: Jabari Padgett MD Monocytes/100 WBC (Bld) 10 % Normal 3-12 [facility] Comment on above: Performed By: #### C DP, IPF, BMPX #### [address] [place] [address] Belt Splicer: Jabari Padgett MD Neutrophil (Seg) 66 % High 36-65 [facility] Comment on above: Performed By: #### C DP, IPF, BMPX #### [facility] [address] [place] [address] [place]. [place], [place] 1737783 Belt Splicer: Jabari Padgett MD NRBC Automated 0.0 per 100 WBC Normal 0.0 [facility] Comment on above: Performed By: #### C DP, IPF, BMPX #### [address] [place], [place] 3262783 Belt Splicer: Jabari Padgett MD Platelet Count See Reflexed IPF Result Normal 138-453 [facility] Comment on above: Performed By: #### C DP, IPF, BMPX #### [address] [place], [place] 8517983 Belt Splicer: Jabari Padgett MD RBC (Bld) [#/Vol] 4.19 10*6/uL Low 4.21-5.77 [facility] Comment on above: Performed By: #### C DP, IPF, BMPX #### [address] [place], [place] 9486983 Belt Splicer: Jabari Padgett MD WBC (Bld) [#/Vol] 7.2 10*3/uL Normal 3.5-11.3 [facility] Comment on above: Performed By: #### C DP, IPF, BMPX #### [address] [place], [place] 3582683 Belt Splicer: Jabari Padgett MD PLT, Immature Fract.on 08-31 Platelet, Fluoresc. 124 k/uL Low 138-453 [facility] Comment on above: Performed By: #### C DP, IPF, BMPX #### [address] [place], [place] 5248283 Belt Splicer: Jabari Padgett MD PLT, Immature Fract. 3.3 % Normal 1.1-10.3 [facility] Comment on above: Performed By: #### C DP, IPF, BMPX #### [address] [place], [place] 9430283 Belt Splicer: Jabari Padgett MD Basic Metab w/rfx MGon 08-30 Anion gap [Moles/Vol] 9 mmol/L Normal - [facility] Comment on above: Performed By: #### C DP, BMPX, IPF #### [address] [place], [place] [phone] Belt Splicer: Jabari Padgett MD BUN/CRE Ratio 17 Normal 9-20 [facility] Comment on above: Performed By: #### C DP, BMPX, IPF #### [facility] [address] [place] [address] Belt Splicer: Jabari Padgett MD Calcium [Mass/Vol] 8.5 mg/dL Low 8.6-10.4 [facility] Comment on above: Performed By: #### C DP, BMPX, IPF #### [facility] [address] [place], [place] 8138883 Belt Splicer: Jabari Padgtet MD Chloride [Moles/Vol] 96 mmol/L Low 98-107 [facility] Comment on above: Performed By: #### C DP, BMPX, IPF #### [facility] [address] [place] [address] Belt Splicer: Jabari Padgett MD CO2 [Moles/Vol] 29 mmol/L Normal 20-31 [facility] Comment on above: Performed By: #### C DP, BMPX, IPF #### [facility] [address] [place] [address] Belt Splicer: Jabari Padgett MD Creatinine [Mass/Vol] 2.29 mg/dL High 0.70-1.20 [facility] Comment on above: Performed By: #### C DP, BMPX, IPF #### [facility] [address] [place], [place] [phone] Belt Splicer: Jabari Padgett MD GFR/1.73 sq M.predicted among non-blacks MDRD (S/P/Bld) [Vol rate/Area] 29 mL/min/{1.73_m2} Low >60 [facility] Comment on above: Result Comment: These [...] renal tubular secretion. Performed By: #### C PITA SHAFFERX, IPF #### [facility] [address] [place], [place] [phone] Belt Splicer: Jabari Padgett MD Glucose [Mass/Vol] 244 mg/dL High 70-99 [facility] Comment on above: Performed By: #### C DP, BMPX, IPF #### [facility] [address] [place] [address] Belt Splicer: Jabari Padgett MD Potassium [Moles/Vol] 4.3 mmol/L Normal 3.7-5.3 [facility] Comment on above: Performed By: #### C DEENA BMPX, IPF #### [facility] [address] [place] [address] [place] [address] Belt Splicer: Jabari Padgett MD Sodium [Moles/Vol] 134 mmol/L Low 135-144 [facility] Comment on above: Performed By: #### C PITA SHAFFERX, IPF #### [address] [place] [address] Belt Splicer: Jabari Padgett MD Urea nitrogen [Mass/Vol] 40 mg/dL High 8-23 [facility] Comment on above: Performed By: #### C DEENA BMPX, IPF #### [facility] [address] [place] [address] [place] [address] Belt Splicer: Jabari Padgett MD CBC with Diffon 08-30-2022 Abs. Basophil <0.03 Normal 0.00-0.20 [facility] Comment on above: Performed By: #### C DP, BMPX, IPF #### [facility] [address] [place], [place] 8506783 Belt Splicer: Jabari Padgett MD Abs.Imm.Granulocyte 0.04 k/uL Normal 0.00-0.30 [facility] Comment on above: Performed By: #### C DP, BMPX, IPF #### [address] [place], [facility] Belt Splicer: Jabari Padgett MD Abs.Neutrophil (Seg) 5.56 k/uL Normal 1.50-8.10 [facility] Comment on above: Performed By: #### C DP, BMPX, IPF #### [address] [place], [facility] Belt Splicer: Jabari Padgett MD Basophils/100 WBC (Bld) 0 % Normal 0-2 [facility] Comment on above: Performed By: #### C DP, BMPX, IPF #### [address] [place] [id number] Belt Splicer: Jabari Padgett MD Eosinophils (Bld) [#/Vol] 0.06 10*3/uL Normal 0.00-0.44 [facility] Comment on above: Performed By: #### C DP, BMPX, IPF #### [address] [place], [facility] Belt Splicer: Jabari Padgett MD Eosinophils/100 WBC (Bld) 1 % Normal 1-4 [facility] Comment on above: Performed By: #### C DP, BMPX, IPF #### [address] [place], [facility] Belt Splicer: Jabari Padgett MD Erythrocyte distribution width (RBC) [Ratio] 12.7 % Normal 11.8-14.4 [facility] Comment on above: Performed By: #### C DP, BMPX, IPF #### [address] [place], [facility] Belt Splicer: Jabari Padgett MD Hematocrit (Bld) [Volume fraction] 36.2 % Low 40.7-50.3 [facility] Comment on above: Performed By: #### C DP, BMPX, IPF #### [facility] [address] [place] [address] Belt Splicer: Jabari Padgett MD Hemoglobin (Bld) [Mass/Vol] 12.5 g/dL Low 13.0-17.0 [facility] Comment on above: Performed By: #### C DP, BMPX, IPF #### [facility] [address] [place], [facility] Belt Splicer: Jabari Padgett MD Immature granulocytes/100 WBC (Bld) 1 % High 0 [facility] Comment on above: Performed By: #### C DP, BMPX, IPF #### [address] [place], [facility] Belt Splicer: Jabari Padgett MD Lymphocytes (Bld) [#/Vol] 1.75 10*3/uL Normal 1.10-3.70 [facility] Comment on above: Performed By: #### C DP, BMPX, IPF #### [facility] [address] [place] [address] [place], [facility] Belt Splicer: Jabari Padgett MD Lymphocytes/100 WBC (Bld) 22 % Low 24-43 [facility] Comment on above: Performed By: #### C DP, BMPX, IPF #### [address] [place], [facility] Belt Splicer: Jabari Padgett MD MCH (RBC) [Entitic mass] 30.9 pg Normal 25.2-33.5 [facility] Comment on above: Performed By: #### C DP, BMPX, IPF #### [facility] [address] [place] [address] Belt Splicer: Jabari Padgett MD MCHC (RBC) [Mass/Vol] 34.5 g/dL Normal 28.4-34.8 [facility] Comment on above: Performed By: #### C DP, BMPX, IPF #### [facility] [address] [place], [place] [address] Belt Splicer: Jabari Padgett MD MCV (RBC) [Entitic vol] 89.4 fL Normal 82.6-102.9 [facility] Comment on above: Performed By: #### C DP, BMPX, IPF #### [facility] [address] [place], [place] [address] Belt Splicer: Jabari Padgett MD Monocytes (Bld) [#/Vol] 0.64 10*3/uL Normal 0.10-1.20 [facility] Comment on above: Performed By: #### C DP, BMPX, IPF #### [facility] [address] [place], [place] [address] Belt Splicer: Jabari Padgett MD Monocytes/100 WBC (Bld) 8 % Normal 3-12 [facility] Comment on above: Performed By: #### C DP, BMPX, IPF #### [address] [place], [place] [address] Belt Splicer: Jabari Padgett MD Neutrophil (Seg) 69 % High 36-65 [facility] Comment on above: Performed By: #### C DP, BMPX, IPF #### [facility] [address] [place], [place] [address] Belt Splicer: Jabari Padgett MD NRBC Automated 0.0 per 100 WBC Normal 0.0 [facility] Comment on above: Performed By: #### C DP, BMPX, IPF #### [facility] [address] [place], [facility] Belt Splicer: Jabari Padgett MD Platelet Count See Reflexed IPF Result Normal 138-453 [facility] Comment on above: Performed By: #### C DP, BMPX, IPF #### [facility] [address] [place], [place] 1154083 Belt Splicer: Jabari Padgett MD RBC (Bld) [#/Vol] 4.05 10*6/uL Low 4.21-5.77 [facility] Comment on above: Performed By: #### C DP, BMPX, IPF #### [address] [place] [facility] Belt Splicer: Jabari Padgett MD WBC (Bld) [#/Vol] 8.1 10*3/uL Normal 3.5-11.3 [facility] Comment on above: Performed By: #### C DP, BMPX, IPF #### [address] [place] [address] Belt Splicer: Jabari Padgett MD PLT, Immature Fract.on 08-30 Platelet, Fluoresc. 141 k/uL Normal 138-453 [facility] Comment on above: Performed By: #### C DP, BMPX, IPF #### [address] [place], [facility] Belt Splicer: Jabari Padgett MD PLT, Immature Fract. 3.1 % Normal 1.1-10.3 [facility] Comment on above: Performed By: #### C DP, BMPX, IPF #### [address] [place], [facility] Belt Splicer: Jabari Padgett MD [id number] 08-30-2022 SARS-CoV-2 (COVID-19) RNA USHA+probe Ql (Unsp spec) Detected Abnormal NOTDET [facility] Comment on above: Result Comment: Rapid [...] this assay. Fact sheet for Healthcare Providers: https://www.fda.gov/media/243865/download Fact sheet for Patients: https://www.fda.gov/media/152639/download Methodology: Isothermal Nucleic Acid Amplification Results reported to the appropriate Health Department Performed By: #### C DP, CP #### [address] [place], [facility] Belt Splicer: Jabari Padgett MD Basic Metab w/rfx MGon 08-29 Anion gap [Moles/Vol] 9 mmol/L Normal 9-17 [facility] Comment on above: Performed By: #### C DEENA, CP #### [address] [place], [facility] Belt Splicer: Jabari Padgett MD BUN/CRE Ratio 15 Normal 9-20 [facility] Comment on above: Performed By: #### C DEENA, CP #### [address] [place], [facility] Belt Splicer: Jabari Padgett MD Calcium [Mass/Vol] 8.7 mg/dL Normal 8.6-10.4 [facility] Comment on above: Performed By: #### C DEENA, CP #### [address] [place], [place] 369[address]83 Belt Splicer: Jabari Padgett MD Chloride [Moles/Vol] 99 mmol/L Normal 98-107 [facility] Comment on above: Performed By: #### C DP, CP #### [address] [place] [address] Belt Splicer: Jabari Padgett MD CO2 [Moles/Vol] 29 mmol/L Normal 20-31 [facility] Comment on above: Performed By: #### C DP, CP #### [facility] [address] [place] [address] Belt Splicer: Jabari Padgett MD Creatinine [Mass/Vol] 2.21 mg/dL High 0.70-1.20 [facility] Comment on above: Performed By: #### C DP, CP #### [facility] [address] [place] [address] Belt Splicer: Jabari Padgett MD GFR/1.73 sq M.predicted among non-blacks MDRD (S/P/Bld) [Vol rate/Area] 30 mL/min/{1.73_m2} Low >60 [facility] Comment on above: Result Comment: These [...] Performed By: #### C DP, CP #### [facility] [address] [place] [address] [place] [address] Belt Splicer: Jabari Padgett MD Glucose [Mass/Vol] 167 mg/dL High 70-99 [facility] Comment on above: Performed By: #### C DP, CP #### [address] [place] [address] Belt Splicer: Jabari Padgett MD Potassium [Moles/Vol] 4.6 mmol/L Normal 3.7-5.3 [facility] Comment on above: Performed By: #### C DP, CP #### [facility] [address] [place] [address] Belt Splicer: Jabari Padgett MD Sodium [Moles/Vol] 137 mmol/L Normal 135-144 [facility] Comment on above: Performed By: #### C DP, CP #### [facility] [address] [place] [address] [place], [place] 1829583 Belt Splicer: Jabari Padgett MD Urea nitrogen [Mass/Vol] 33 mg/dL High 8-23 [facility] Comment on above: Performed By: #### C DP, CP #### [address] [place], [place] 5536283 Belt Splicer: Jabari Padgett MD CBC with Diffon 08-29-2022 Abs. Basophil 0.04 k/uL Normal 0.00-0.20 [facility] Comment on above: Performed By: #### B MPX, IPF, CDP #### [address] [place], [facility] Belt Splicer: Jabari Padgett MD Abs.Imm.Granulocyte 0.04 k/uL Normal 0.00-0.30 [facility] Comment on above: Performed By: #### B MPX, IPF, CDP #### [address] [place], [facility] Belt Splicer: Jabari Padgett MD Abs.Neutrophil (Seg) 6.05 k/uL Normal 1.50-8.10 [facility] Comment on above: Performed By: #### B MPX, IPF, CDP #### [address] [place], [facility] Belt Splicer: Jabari Padgett MD Basophils/100 WBC (Bld) 0 % Normal 0-2 [facility] Comment on above: Performed By: #### B MPX, IPF, CDP #### [address] [place], [place] 2379383 Belt Splicer: Jabari Padgett MD Eosinophils (Bld) [#/Vol] 0.09 10*3/uL Normal 0.00-0.44 [facility] Comment on above: Performed By: #### B MPX, IPF, CDP #### [address] [place], [facility] Belt Splicer: Jabari Padgett MD Eosinophils/100 WBC (Bld) 1 % Normal 1-4 [facility] Comment on above: Performed By: #### B MPX, IPF, CDP #### [facility] [address] [place], [place] 0368783 Belt Splicer: Jabari Padgett MD Erythrocyte distribution width (RBC) [Ratio] 13.0 % Normal 11.8-14.4 [facility] Comment on above: Performed By: #### B MPX, IPF, CDP #### [address] [place], [place] 7933383 Belt Splicer: Jabari Padgett MD Hematocrit (Bld) [Volume fraction] 38.6 % Low 40.7-50.3 [facility] Comment on above: Performed By: #### B MPX, IPF, CDP #### [address] [place], [facility] Belt Splicer: Jabari Padgett MD Hemoglobin (Bld) [Mass/Vol] 13.2 g/dL Normal 13.0-17.0 [facility] Comment on above: Performed By: #### B MPX, IPF, CDP #### [address] [place], [place] 6163383 Belt Splicer: Jabari Padgett MD Immature granulocytes/100 WBC (Bld) 0 % Normal 0 [facility] Comment on above: Performed By: #### B MPX, IPF, CDP #### [facility] [address] [place] [address] [place], [place] 5154583 Belt Splicer: Jabari Padgett MD Lymphocytes (Bld) [#/Vol] 1.93 10*3/uL Normal 1.10-3.70 [facility] Comment on above: Performed By: #### B MPX, IPF, CDP #### [address] [place], [facility] Belt Splicer: Jabari Padgett MD Lymphocytes/100 WBC (Bld) 21 % Low 24-43 [facility] Comment on above: Performed By: #### B MPX, IPF, CDP #### [facility] [address] [place], [place] 5521283 Belt Splicer: Jabari Padgett MD MCH (RBC) [Entitic mass] 31.3 pg Normal 25.2-33.5 [facility] Comment on above: Performed By: #### B MPX, IPF, CDP #### [facility] [address] [place], [place] 1017583 Belt Splicer: Jabari Padgett MD MCHC (RBC) [Mass/Vol] 34.2 g/dL Normal 28.4-34.8 [facility] Comment on above: Performed By: #### B MPX, IPF, CDP #### [address] [place], [place] 2687483 Belt Splicer: Jabari Padgett MD MCV (RBC) [Entitic vol] 91.5 fL Normal 82.6-102.9 [facility] Comment on above: Performed By: #### B MPX, IPF, CDP #### [address] [place], [place] 053[address]83 Belt Splicer: Jabari Padgett MD Monocytes (Bld) [#/Vol] 0.90 10*3/uL Normal 0.10-1.20 [facility] Comment on above: Performed By: #### B MPX, IPF, CDP #### [facility] [address] [place], [place] 1708883 Belt Splicer: Jabari Padgett MD Monocytes/100 WBC (Bld) 10 % Normal 3-12 [facility] Comment on above: Performed By: #### B MPX, IPF, CDP #### [facility] [address] [place], [place] 667[address]83 Belt Splicer: Jabari Padgett MD Neutrophil (Seg) 67 % High 36-65 [facility] Comment on above: Performed By: #### B MPX, IPF, CDP #### [facility] [address] [place] [address] Dr[address] [place], [place] [id number] Belt Splicer: Jabari Padgett MD NRBC Automated 0.0 per 100 WBC Normal 0.0 [facility] Comment on above: Performed By: #### B MPX, IPF, CDP #### [address] [place], [place] [id number] Belt Splicer: Jabari Padgett MD Platelet Count See Reflexed IPF Result Normal 138-453 [facility] Comment on above: Performed By: #### B MPX, IPF, CDP #### [address] [place], [place] [id number] Belt Splicer: Jabari Padgett MD RBC (Bld) [#/Vol] 4.22 10*6/uL Normal 4.21-5.77 [facility] Comment on above: Performed By: #### B MPX, IPF, CDP #### [address] [place], [place] [address] Belt Splicer: Jabari Padgett MD WBC (Bld) [#/Vol] 9.1 10*3/uL Normal 3.5-11.3 [facility] Comment on above: Performed By: #### B MPX, IPF, CDP #### [address] [place], [place] [id number] Belt Splicer: Jabari Padgett MD PLT, Immature Fract.on 08-29 Platelet, Fluoresc. 136 k/uL Low 138-453 [facility] Comment on above: Performed By: #### B MPX, IPF, CDP #### [address] [place], [place] [id number] Belt Splicer: Jabari Padgett MD PLT, Immature Fract. 2.5 % Normal 1.1-10.3 [facility] Comment on above: Performed By: #### B MPX, IPF, CDP #### [facility] [address] [place] [address] Belt Splicer: Jabari Padgett MD 36on 08-28-2022 36 REILLY Tim from [place] stating patient was admitted 08/27/2022 for abdominal pain, thank you! Normal [facility] Basic Metab w/rfx MGon 08-28 Anion gap [Moles/Vol] 9 mmol/L Normal 9-17 [facility] Comment on above: Performed By: #### C DP, CP #### [facility] [address] [place], [place] [address]39[address]83 Belt Splicer: Jabari Padgett MD BUN/CRE Ratio 18 Normal 9-20 [facility] Comment on above: Performed By: #### C DP, CP #### [facility] [address] [place], [place] 4794583 Belt Splicer: Jabari Padgett MD Calcium [Mass/Vol] 9.1 mg/dL Normal 8.6-10.4 [facility] Comment on above: Performed By: #### C DP, CP #### [address] [place] [address] Belt Splicer: Jabari Padgett MD Chloride [Moles/Vol] 104 mmol/L Normal 98-107 [facility] Comment on above: Performed By: #### C DP, CP #### [facility] [address] [place], [place] 16[address]83 Belt Splicer: Jabari Padgett MD CO2 [Moles/Vol] 24 mmol/L Normal 20-31 [facility] Comment on above: Performed By: #### C DP, CP #### [facility] [address] [place], [place] [id number] Belt Splicer: Jabari Padgett MD Creatinine [Mass/Vol] 1.97 mg/dL High 0.70-1.20 [facility] Comment on above: Performed By: #### C DP, CP #### [facility] [address] [place] [address] Belt Splicer: Jabari Padgett MD GFR/1.73 sq M.predicted among non-blacks MDRD (S/P/Bld) [Vol rate/Area] 34 mL/min/{1.73_m2} Low >60 [facility] Comment on above: Result Comment: These [...] Performed By: #### C DP, CP #### [facility] [address] [place] [address] Belt Splicer: Jabari Padgett MD Glucose [Mass/Vol] 150 mg/dL High 70-99 [facility] Comment on above: Performed By: #### C DP, CP #### [address] [place] [address] Belt Splicer: Jabari Padgett MD Potassium [Moles/Vol] 4.3 mmol/L Normal 3.7-5.3 [facility] Comment on above: Performed By: #### C DP, CP #### [facility] [address] [place], [place] 7704083 Belt Splicer: Jabari Padgett MD Sodium [Moles/Vol] 137 mmol/L Normal 135-144 [facility] Comment on above: Performed By: #### C DP, CP #### [facility] [address] [place] [address] Belt Splicer: Jabari Padgett MD Urea nitrogen [Mass/Vol] 35 mg/dL High 8-23 [facility] Comment on above: Performed By: #### C DP, CP #### [facility] [address] [place] [address] Dr. [place], [place] [id number] Belt Splicer: Jabari Padgett MD CBC with Diffon 08-28-2022 Abs. Basophil 0.03 k/uL Normal 0.00-0.20 [facility] Comment on above: Performed By: #### C DP, CP #### [address] [place], [place] 3561683 Belt Splicer: Jabari Padgett MD Abs.Imm.Granulocyte <0.03 Normal 0.00-0.30 [facility] Comment on above: Performed By: #### C DP, CP #### [address] [place], [place] [address] Belt Splicer: Jabari Padgett MD Abs.Neutrophil (Seg) 5.01 k/uL Normal 1.50-8.10 [facility] Comment on above: Performed By: #### C DP, CP #### [address] [place] [address] Belt Splicer: Jabari Padgett MD Basophils/100 WBC (Bld) 0 % Normal 0-2 [facility] Comment on above: Performed By: #### C DP, CP #### [address] [place], [place] [id number] Belt Splicer: Jabari Padgett MD Eosinophils (Bld) [#/Vol] 0.12 10*3/uL Normal 0.00-0.44 [facility] Comment on above: Performed By: #### C DP, CP #### [address] [place], [place] 3102383 Belt Splicer: Jabari Padgett MD Eosinophils/100 WBC (Bld) 2 % Normal 1-4 [facility] Comment on above: Performed By: #### C DP, CP #### [facility] [address] [place], [place] 2008683 Belt Splicer: Jabari Padgett MD Erythrocyte distribution width (RBC) [Ratio] 13.0 % Normal 11.8-14.4 [facility] Comment on above: Performed By: #### C DP, CP #### [address] [place], [facility] Belt Splicer: Jabari Padgett MD Hematocrit (Bld) [Volume fraction] 38.9 % Low 40.7-50.3 [facility] Comment on above: Performed By: #### C DP, CP #### [address] [place], [facility] Belt Splicer: Jabari Padgett MD Hemoglobin (Bld) [Mass/Vol] 13.6 g/dL Normal 13.0-17.0 [facility] Comment on above: Performed By: #### C DP, CP #### [address] [place], [place] [phone] Belt Splicer: Jabari Padgett MD Immature granulocytes/100 WBC (Bld) 0 % Normal 0 [facility] Comment on above: Performed By: #### C DP, CP #### [address] [place], [facility] Belt Splicer: Jabari Padgett MD Lymphocytes (Bld) [#/Vol] 1.86 10*3/uL Normal 1.10-3.70 [facility] Comment on above: Performed By: #### C DP, CP #### [address] [place], [place] 6856783 Belt Splicer: Jabari Padgett MD Lymphocytes/100 WBC (Bld) 23 % Low 24-43 [facility] Comment on above: Performed By: #### C DP, CP #### [address] [place], [facility] Belt Splicer: Jabari Padgett MD MCH (RBC) [Entitic mass] 32.1 pg Normal 25.2-33.5 [facility] Comment on above: Performed By: #### C DP, CP #### [address] [place] [address] Belt Splicer: Jabari Padgett MD MCHC (RBC) [Mass/Vol] 35.0 g/dL High 28.4-34.8 [facility] Comment on above: Performed By: #### C DP, CP #### [address] [place] [address] Belt Splicer: Jabari Padgett MD MCV (RBC) [Entitic vol] 91.7 fL Normal 82.6-102.9 [facility] Comment on above: Performed By: #### C DP, CP #### [address] [place], [place] 0285183 Belt Splicer: Jabari Padgett MD Monocytes (Bld) [#/Vol] 0.92 10*3/uL Normal 0.10-1.20 [facility] Comment on above: Performed By: #### C DP, CP #### [address] [place] [address] Belt Splicer: Jabari Padgett MD Monocytes/100 WBC (Bld) 12 % Normal 3-12 [facility] Comment on above: Performed By: #### C DP, CP #### [address] [place], [place] 6047483 Belt Splicer: Jabari Padgett MD Neutrophil (Seg) 63 % Normal 36-65 [facility] Comment on above: Performed By: #### C DP, CP #### [address] [place], [place] 6383783 Belt Splicer: Jabari Padgett MD NRBC Automated 0.0 per 100 WBC Normal 0.0 [facility] Comment on above: Performed By: #### C DP, CP #### [facility] [address] [place], [place] [phone] Belt Splicer: Jabari Padgett MD Platelet Count See Reflexed IPF Result Normal 138-453 [facility] Comment on above: Performed By: #### C DP, CP #### [facility] [address] [place], [place] 1364083 Belt Splicer: Jabari Padgett MD RBC (Bld) [#/Vol] 4.24 10*6/uL Normal 4.21-5.77 [facility] Comment on above: Performed By: #### C DP, CP #### [facility] [address] [place], [place] 9623683 Belt Splicer: Jabari Padgett MD WBC (Bld) [#/Vol] 8.0 10*3/uL Normal 3.5-11.3 [facility] Comment on above: Performed By: #### C DP, CP #### [facility] [address] [place], [place] 96[address]83 Belt Splicer: Jabari Padgett MD Hemoglobin A1Con 08-28-2022 Glucose [Mass/Vol] 240 mg/dL Normal [facility] Comment on above: Result Comment: The ADA and AACC recommend providing the estimated average glucose result to permit better patient understanding of their HBA1c result. Performed By: #### C DP, CP #### [facility] [address] [place], [place] 1116083 Belt Splicer: Jabari Padgett MD HbA1c (Bld) [Mass fraction] 10.0 % High 4.0-6.0 [facility] Comment on above: Performed By: #### C DP, CP #### [facility] [address] [place], [place] [phone] Belt Splicer: Jabari Padgett MD PLT, Immature Fract.on 08-28 Platelet, Fluoresc. 142 k/uL Normal 138-453 [facility] Comment on above: Performed By: #### C DP, CP #### [facility] [address] [place], [place] 9066783 Belt Splicer: Jabari Padgett MD PLT, Immature Fract. 2.0 % Normal 1.1-10.3 [facility] Comment on above: Performed By: #### C DP, CP #### [facility] [address] [place], [place] 3801083 Belt Splicer: Jabari Padgett MD Basic Metabolic Profon 08-27 Anion gap [Moles/Vol] 11 mmol/L Normal 9-17 [facility] Comment on above: Performed By: #### C DP, IPF, BMPX #### [facility] [address] [place], [place] 4121783 Belt Splicer: Jabari Padgett MD BUN/CRE Ratio 17 Normal 9-20 [facility] Comment on above: Performed By: #### C DP, IPF, BMPX #### [facility] [address] [place], [place] 5096683 Belt Splicer: Jabari Padgett MD Calcium [Mass/Vol] 9.2 mg/dL Normal 8.6-10.4 [facility] Comment on above: Performed By: #### C DP, IPF, BMPX #### [facility] [address] [place], [place] 2266383 Belt Splicer: Jabari Padgett MD Chloride [Moles/Vol] 98 mmol/L Normal 98-107 [facility] Comment on above: Performed By: #### C DP, IPF, BMPX #### [facility] [address] [place], [place] 2871483 Belt Splicer: Jabari Padgett MD CO2 [Moles/Vol] 25 mmol/L Normal 20-31 [facility] Comment on above: Performed By: #### C DP, IPF, BMPX #### [facility] [address] [place] [address] Belt Splicer: Jabari Padgett MD Creatinine [Mass/Vol] 2.37 mg/dL High 0.70-1.20 [facility] Comment on above: Performed By: #### C DP, IPF, BMPX #### [facility] [address] [place] [address] Belt Splicer: Jabari Padgett MD GFR/1.73 sq M.predicted among non-blacks MDRD (S/P/Bld) [Vol rate/Area] 28 mL/min/{1.73_m2} Low >60 [facility] Comment on above: Result Comment: These [...] renal tubular secretion. Performed By: #### C DP IPF, BMPX #### [facility] [address] [place] [address] Belt Splicer: Jabari Padgett MD Glucose [Mass/Vol] 247 mg/dL High 70-99 [facility] Comment on above: Performed By: #### C DEENA IPF, BMPX #### [facility] [address] [place] [address] Belt Splicer: Jabari Padgett MD Potassium [Moles/Vol] 4.8 mmol/L Normal 3.7-5.3 [facility] Comment on above: Performed By: #### C DP, IPF, BMPX #### [facility] [address] [place] [address] Belt Splicer: Jabari Padgett MD Sodium [Moles/Vol] 134 mmol/L Low 135-144 [facility] Comment on above: Performed By: #### C DP IPF, BMPX #### [facility] [address] [place], [place] 5020983 Belt Splicer: Jabari Padgett MD Urea nitrogen [Mass/Vol] 41 mg/dL High 8-23 [facility] Comment on above: Performed By: #### C DP, IPF, BMPX #### [facility] [address] [place], [place] [address] Belt Splicer: Jabari Padgett MD CBC with Diffon 08-27-2022 Abs. Basophil 0.03 k/uL Normal 0.00-0.20 [facility] Comment on above: Performed By: #### C DP, IPF, BMPX #### [facility] [address] [place] [address] Belt Splicer: Jabari Padgett MD Abs.Imm.Granulocyte 0.04 k/uL Normal 0.00-0.30 [facility] Comment on above: Performed By: #### C DP, IPF, BMPX #### [address] [place], [facility] Belt Splicer: Jabari Padgett MD Abs.Neutrophil (Seg) 6.39 k/uL Normal 1.50-8.10 [facility] Comment on above: Performed By: #### C DP, IPF, BMPX #### [facility] [address] [place], [place] [address] Belt Splicer: Jabari Padgett MD Basophils/100 WBC (Bld) 0 % Normal 0-2 [facility] Comment on above: Performed By: #### C DP, IPF, BMPX #### [facility] [address] [place], [facility] Belt Splicer: Jabari Padgett MD Eosinophils (Bld) [#/Vol] 0.09 10*3/uL Normal 0.00-0.44 [facility] Comment on above: Performed By: #### C DP, IPF, BMPX #### [facility] [address] [place], [place] [phone] Belt Splicer: Jabari Padgett MD Eosinophils/100 WBC (Bld) 1 % Normal 1-4 [facility] Comment on above: Performed By: #### C DP, IPF, BMPX #### [facility] [address] [place], [facility] Belt Splicer: Jabari Padgett MD Erythrocyte distribution width (RBC) [Ratio] 12.9 % Normal 11.8-14.4 [facility] Comment on above: Performed By: #### C DP, IPF, BMPX #### [address] [place], [facility] Belt Splicer: Jabari Padgett MD Hematocrit (Bld) [Volume fraction] 38.4 % Low 40.7-50.3 [facility] Comment on above: Performed By: #### C DP, IPF, BMPX #### [address] [place], [facility] Belt Splicer: Jabari Padgett MD Hemoglobin (Bld) [Mass/Vol] 13.6 g/dL Normal 13.0-17.0 [facility] Comment on above: Performed By: #### C DP, IPF, BMPX #### [address] [place], [place] [address] Belt Splicer: Jabari Padgett MD Immature granulocytes/100 WBC (Bld) 0 % Normal 0 [facility] Comment on above: Performed By: #### C DP, IPF, BMPX #### [address] [place] [address] Belt Splicer: Jabari Padgett MD Lymphocytes (Bld) [#/Vol] 2.20 10*3/uL Normal 1.10-3.70 [facility] Comment on above: Performed By: #### C DP, IPF, BMPX #### [facility] [address] [place], [place] [phone] Belt Splicer: Jabari Padgett MD Lymphocytes/100 WBC (Bld) 23 % Low 24-43 [facility] Comment on above: Performed By: #### C DP, IPF, BMPX #### [address] [place], [facility] Belt Splicer: Jabari Padgett MD MCH (RBC) [Entitic mass] 31.9 pg Normal 25.2-33.5 [facility] Comment on above: Performed By: #### C DP, IPF, BMPX #### [address] [place] [id number] Belt Splicer: Jabari Padgett MD MCHC (RBC) [Mass/Vol] 35.4 g/dL High 28.4-34.8 [facility] Comment on above: Performed By: #### C DP, IPF, BMPX #### [address] [place], [facility] Belt Splicer: Jabari Padgett MD MCV (RBC) [Entitic vol] 90.1 fL Normal 82.6-102.9 [facility] Comment on above: Performed By: #### C DP, IPF, BMPX #### [address] [place], [facility] Belt Splicer: Jabari Padgett MD Monocytes (Bld) [#/Vol] 0.82 10*3/uL Normal 0.10-1.20 [facility] Comment on above: Performed By: #### C DP, IPF, BMPX #### [address] [place] [address] Belt Splicer: Jabari Padgett MD Monocytes/100 WBC (Bld) 9 % Normal 3-12 [facility] Comment on above: Performed By: #### C DP, IPF, BMPX #### [address] [place], [place] 5169483 Belt Splicer: Jabari Padgett MD Neutrophil (Seg) 67 % High 36-65 [facility] Comment on above: Performed By: #### C DP, IPF, BMPX #### [facility] [address] [place], [place] [phone] Belt Splicer: Jabari Padgett MD NRBC Automated 0.0 per 100 WBC Normal 0.0 [facility] Comment on above: Performed By: #### C DP, IPF, BMPX #### [facility] [address] [place], [place] 3832883 Belt Splicer: Jabari Padgett MD Platelet mean volume (Bld) [Entitic vol] 10.1 fL Normal 8.1-13.5 [facility] Comment on above: Performed By: #### C DP, IPF, BMPX #### [address] [place], [place] 1618483 Belt Splicer: Jabari Padgett MD Platelets (Bld) [#/Vol] 157 10*3/uL Normal 138-453 [facility] Comment on above: Performed By: #### C DP, IPF, BMPX #### [address] [place], [place] 4574483 Belt Splicer: Jabari Padgett MD RBC (Bld) [#/Vol] 4.26 10*6/uL Normal 4.21-5.77 [facility] Comment on above: Performed By: #### C DP, IPF, BMPX #### [address] [place], [place] 0821683 Belt Splicer: Jabari Padgett MD WBC (Bld) [#/Vol] 9.6 10*3/uL Normal 3.5-11.3 [facility] Comment on above: Performed By: #### C DP, IPF, BMPX #### [address] [place] [address] Belt Splicer: Jabari Padgett MD CT ABDOMEN PELVIS WO [...] Michael Williamson MD 08/27/22 Final result Normal [facility] UA w/Reflex Cultureon 2022 Bilirubin, SemiQt,Ur Negative Normal NEG [facility] Comment on above: Performed By: #### C DP, CP #### [facility] [address] [place] [address] Belt Splicer: Jabari Padgett MD Blood, Urine Negative Normal NEG [facility] Comment on above: Performed By: #### C DP, CP #### [facility] [address] [place] [address] [place]. [place], [place] 5305283 Belt Splicer: Jabari Padgett MD Clarity (U) Clear Normal CLEAR [facility] Comment on above: Performed By: #### C DP, CP #### [facility] [address] [place] [address] Dr. [place], [place] 7833383 Belt Splicer: Jabari Padgett MD Color (U) Yellow Normal YEL [facility] Comment on above: Performed By: #### C DP, CP #### [address] [place], [place] 5121183 Belt Splicer: Jabari Padgett MD Glucose Ql (U) 2+ Abnormal NEG [facility] Comment on above: Performed By: #### C DP, CP #### [address] [place], [place] 2969683 Belt Splicer: Jabari Padgett MD Ketones Ql (U) Negative Normal NEG [facility] Comment on above: Performed By: #### C DP, CP #### [address] [place], [place] 0738583 Belt Splicer: Jabari Padgett MD Leukocyte esterase Test strip Ql (U) Negative Normal NEG [facility] Comment on above: Performed By: #### C DP, CP #### [facility] [address] [place] [address] [place], [place] 2646283 Belt Splicer: Jabari Padgett MD Nitrite,Ur Negative Normal NEG [facility] Comment on above: Performed By: #### C DP, CP #### [address] [place], [place] 8123583 Belt Splicer: Jabari Padgett MD PH,Ur 7.0 Normal 5.0-9.0 [facility] Comment on above: Performed By: #### C DP, CP #### [facility] [address] [place] [address] Belt Splicer: Jabari Padgett MD Protein Ql (U) 2+ Abnormal NEG [facility] Comment on above: Performed By: #### C DP, CP #### [facility] [address] [place], [place] 1384483 Belt Splicer: Jabari Padgett MD Spec. [place],Ur 1.015 Normal 1.010-1.020 [facility] Comment on above: Performed By: #### C DP, CP #### [facility] [address] [place] [address] [place] [address] Belt Splicer: Jabari Padgett MD Urobilinogen,Ur Normal Normal NORM [facility] Comment on above: Performed By: #### C DP, CP #### [facility] [address] [place] [address] [place] [address] Belt Splicer: Jabari Padgett MD Urinalysis,Microon 3 Bacteria TRACE Abnormal NONE [facility] Comment on above: Performed By: #### C DP, IPF, BMPX #### [address] [place] [address] Belt Splicer: Jabari Padgett MD Epithelial cells LM Ql (Urine sed) 2 TO 5 Normal 0-5 [facility] Comment on above: Performed By: #### C DP, IPF, BMPX #### [facility] [address] [place] [address] Belt Splicer: Jabari Padgett MD Mucus Strands TRACE Abnormal NONE [facility] Comment on above: Performed By: #### C DP, IPF, BMPX #### [facility] [address] [place], [place] 4668483 Belt Splicer: Jabari Padgett MD Urine RBC's None Normal 0-2 [facility] Comment on above: Performed By: #### C DP, IPF, BMPX #### [facility] [address] [place] [address] Belt Splicer: Jabari Padgett MD Urine WBC's None Normal 0-5 [facility] Comment on above: Performed By: #### C DP, IPF, BMPX #### [facility] [address] [place] [address] Belt Splicer: Jabari Padgett MD XR HIP 2-3 VW [...] Elton Walters MD 08/27/22 Final result Normal [facility] BILIRUBIN CONJUGATED (DIRECT )on 07-27-2022 BILI, CONJUGATED 0.2 mg/dL Normal 0.0-0.2 [facility] Comment on above: Performed By: #### D SHARIFA, TSH #### [facility] [address] [place], [place] [address] Dr. Gallo Infante FREE T4on 07-27-2022 Free T4 [Mass/Vol] 1.11 ng/dL Normal 0.76-1.46 [facility] Comment on above: Performed By: #### F T4 #### [facility] [address] [place], [place] [address] Dr. Gallo Infante LIPID PROFILEon 07-27-2022 CHOL-HDL RATIO NORM SEE BELOW Normal [facility] Comment on above: Result Comment: 3.3 - 4.4 LOW RISK 4.4 - 7.1 AVERAGE RISK 7.1 - 11.0 MODERATE RISK >11.0 HIGH RISK Performed By: #### D SHARIFA, TSH #### [facility] [address] [place] [address] [address] Gallo Infante Cholesterol [Mass/Vol] 102 mg/dL Normal <=200 [facility] Comment on above: Performed By: #### D SHARIFA, TSH #### [facility] [address] [place] [address] [address] Gallo Infante Cholesterol in HDL [Mass/Vol] 45 mg/dL Normal 40-60 [facility] Comment on above: Performed By: #### D SHARIFA, TSH #### [facility] [address] [place] [address] [address] Gallo Infante Cholesterol in LDL [Mass/Vol] 40.2 mg/dL Normal [facility] Comment on above: Performed By: #### D SHARIFA, TSH #### [facility] [address] [place] [address] [address] Gallo Infante Cholesterol.total/Blanche sterol in HDL [Mass ratio] 2.3 {ratio} Normal [facility] Comment on above: Performed By: #### D SHARIFA, TSH #### [facility] [address] [place] [address] [address] Gallo Infante HDL NORMAL > or = 60 mg/dl - LO W CARDIOVASCULAR RISK <40 mg/dl - HIGH CARDIOVASCULAR RISK Normal [facility] Comment on above: Performed By: #### D SHARIFA, TSH #### [facility] [address] [place] [address] [address] Gallo Infante LDL CALC NORMAL SEE BELOW Normal [facility] Comment on above: Result Comment: <100 mg/dl OPTIMAL 100 - 129 mg/dl NEAR OR ABOVE OPTIMAL 130 - 159 mg/dl BORDERLINE HIGH 160 - 189 mg/dl HIGH >190 mg/dl VERY HIGH Performed By: #### D SHARIFA, TSH #### [facility] [address] [place] [address] [address] Gallo Infante Triglyceride [Mass/Vol] 84 mg/dL Normal <=150 [facility] Comment on above: Performed By: #### D SHARIFA, TSH #### [facility] [address] [place] [address] [address] Gallo Infante VLDL CALC 16.8 mg/dL Normal [facility] Comment on above: Performed By: #### D SHARIFA, TSH #### [facility] [address] [place] [address] [address] Gallo Infante PROF 14(COMP METB)on 023 Albumin [Mass/Vol] 2.9 g/dL Critically low 3.4-5.0 [facility] Comment on above: Performed By: #### D SHARIFA, TSH #### [facility] [address] [place] [address] Dr. Gallo Infante Albumin/Globulin [Mass ratio] 0.6 {ratio} Normal [facility] Comment on above: Performed By: #### D SHARIFA, TSH #### [facility] [address] [address] [address] Gallo Infante ALP [Catalytic activity/Vol] 119 U/L Critically high 46-116 [facility] Comment on above: Performed By: #### D SHARIFA, TSH #### [facility] [address] [address] [address] Gallo Infante ALT [Catalytic activity/Vol] 29 U/L Normal 16-63 [facility] Comment on above: Performed By: #### D SHARIFA, TSH #### [facility] [address] [address] [address] Gallo Infante Anion gap [Moles/Vol] 10.1 mmol/L Normal [facility] Comment on above: Performed By: #### D SHARIFA, TSH #### [facility] [address] [address] [address] Gallo Infante AST [Catalytic activity/Vol] 21 U/L Normal 15-37 [facility] Comment on above: Performed By: #### D SHARIFA, TSH #### [facility] [address] [address] [address] Gallo Infante Bilirubin [Mass/Vol] 0.4 mg/dL Normal 0.2-1.0 [facility] Comment on above: Performed By: #### D SHARIFA, TSH #### [facility] [address] [address] [address] Gallo Infante Calcium [Mass/Vol] 8.8 mg/dL Normal 8.5-10.1 [facility] Comment on above: Performed By: #### D SHARIFA, TSH #### [facility] [address] [address] [address] Gallo Infante Chloride [Moles/Vol] 102 mmol/L Normal 98-107 [facility] Comment on above: Performed By: #### D SHARIFA, TSH #### [facility] [address] [address] [address] Gallo Infante CO2 [Moles/Vol] 31.3 mmol/L Normal 21.0-32.0 [facility] Comment on above: Performed By: #### D SHARIFA, TSH #### [facility] [address] [place] [address] Dr. Gallo Infante Creatinine [Mass/Vol] 2.37 mg/dL Critically high 0.70-1.30 [facility] Comment on above: Performed By: #### D SHARIFA, TSH #### [facility] [address] [place] [address] Dr. Gallo Infante EGFR-AF SURINAMESE 32 mL/min/1.73m2 Critically low >=60 [facility] Comment on above: Performed By: #### D SHARIFA, TSH #### [facility] [address] [place] [address] Dr. Gallo Infante EGFR-NON AF SURINAMESE 27 mL/min/1.73m2 Critically low >=60 [facility] Comment on above: Performed By: #### D SHARIFA, TSH #### [facility] [address] [place] [address] Dr. Gallo Infante Globulin (S) [Mass/Vol] 4.5 g/dL Normal [facility] Comment on above: Performed By: #### D SHARIFA, TSH #### [facility] [address] [address] [address] Gallo Infante Glucose [Mass/Vol] 156 mg/dL Critically high 74-106 [facility] Comment on above: Performed By: #### D SHARIFA, TSH #### [facility] [address] [place] [address] Dr. Gallo Infante Potassium [Moles/Vol] 4.4 mmol/L Normal 3.5-5.1 [facility] Comment on above: Performed By: #### D SHARIFA, TSH #### [facility] [address] [place] [address] Dr. Gallo Infante Protein [Mass/Vol] 7.4 g/dL Normal 6.4-8.2 [facility] Comment on above: Performed By: #### D SHARIFA, TSH #### [facility] [address] [place] [address] Dr. Gallo Infante Sodium [Moles/Vol] 139 mmol/L Normal 136-145 [facility] Comment on above: Performed By: #### D SHARIFA, TSH #### [facility] [address] [place] [address] Dr. Gallo Infante Urea nitrogen [Mass/Vol] 46.0 mg/dL Critically high 7.0-18.0 [facility] Comment on above: Performed By: #### D SHARIFA, TSH #### [facility] [address] [place] [address] Dr. Gallo Infante Urea nitrogen/Creatinine [Mass ratio] 19.4 mg/mg Normal [facility] Comment on above: Performed By: #### D SHARIFA, TSH #### [facility] [address] [place] [address] Dr. Gallo Infante TSHon 07-27-2022 TSH 0.887 uIU/mL Normal 0.358-3.740 [facility] Comment on above: Performed By: #### D SHARIFA, TSH #### [facility] [address] [place] [address] Dr. Gallo Infante VITAMIN B12on 07-27-2022 Cobalamin (Vitamin B12) [Mass/Vol] 1205.0 pg/mL Critically high 193.0-986.0 [facility] Comment on above: Performed By: #### D SHARIFA, TSH #### [facility] [address] [address] [address] Gallo Infante PROTEIN AND CREA RANDOM UR R ATIOon 04-17-2022 Creatinine, Urine 50.8 mg/dL Normal Not Estab. [facility] Comment on above: Performed By: #### D SHARIFA, TSH #### [facility] [address] [place] [address] Dr. Gallo Infante Protein (U) [Mass/Vol] 51.0 mg/dL Normal Not Estab. [facility] Comment on above: Performed By: #### D SHARIFA, TSH #### [facility] [address] [place] [address] Dr. Gallo Infante Protein/Creat Ratio 1004 mg/g creat Critically high 0-200 [facility] Comment on above: Performed By: #### D SHARIFA, TSH #### [facility] [address] [place] [address] Dr. Gallo Infante PTH INTACTon 04-17-2022 PTH, Intact 42 pg/mL Normal 15-65 [facility] Comment on above: Performed By: #### D SHARIFA, TSH #### [facility] [address] [place] [address] Dr. Gallo Infante ALBUMINon 04-16-2022 Albumin [Mass/Vol] 3.3 g/dL Critically low 3.4-5.0 [facility] Comment on above: Performed By: #### D SHARIFA, TSH #### [facility] [address] [place] [address] Dr. Gallo Infante HEMOGLOBINon 04-16-2022 Hemoglobin (Bld) [Mass/Vol] 13.3 g/dL Critically low 14.0-18.0 [facility] Comment on above: Performed By: #### D SHARIFA, TSH #### [facility] [address] [place] [address] Dr. Gallo Infante MAGNESIUMon 04-16-2022 Magnesium [Mass/Vol] 2.0 mg/dL Normal 1.8-2.4 [facility] Comment on above: Performed By: #### D SHARIFA, TSH #### [facility] [address] [address] [address] Gallo Infante PHOSPHORUSon 04-16-2022 Phosphate [Mass/Vol] 4.0 mg/dL Normal 2.6-4.7 [facility] Comment on above: Performed By: #### D SHARIFA, TSH #### [facility] [address] [address] [address] Gallo Infante PROF CHEM 8 (BAS METB)on Anion gap [Moles/Vol] 7.9 mmol/L Normal [facility] Comment on above: Performed By: #### D SHARIFA, TSH #### [facility] [address] [address] [address] Gallo Infante Calcium [Mass/Vol] 8.9 mg/dL Normal 8.5-10.1 [facility] Comment on above: Performed By: #### D SHARIFA, TSH #### [facility] [address] [address] [address] Gallo Infante Chloride [Moles/Vol] 102 mmol/L Normal 98-107 [facility] Comment on above: Performed By: #### D SHARIFA, TSH #### [facility] [address] [address] [address] Gallo Infante CO2 [Moles/Vol] 30.0 mmol/L Normal 21.0-32.0 [facility] Comment on above: Performed By: #### D SHARIFA, TSH #### [facility] [address] [address] [address] Gallo Infante Creatinine [Mass/Vol] 2.47 mg/dL Critically high 0.70-1.30 [facility] Comment on above: Performed By: #### D SHARIFA, TSH #### [facility] [address] [address] [address] Gallo Infante EGFR-AF SURINAMESE 31 mL/min/1.73m2 Critically low >=60 [facility] Comment on above: Performed By: #### D SHARIFA, TSH #### [facility] [address] [address] [address] Gallo Infante EGFR-NON AF SURINAMESE 26 mL/min/1.73m2 Critically low >=60 [facility] Comment on above: Performed By: #### D SHARIFA, TSH #### [facility] [address] [address] [address] Gallo Infante Glucose [Mass/Vol] 247 mg/dL Critically high 74-106 [facility] Comment on above: Performed By: #### D SHARIFA, TSH #### [facility] [address] [address] [address] Gallo Infante Potassium [Moles/Vol] 3.9 mmol/L Normal 3.5-5.1 [facility] Comment on above: Performed By: #### D SHARIFA, TSH #### [facility] [address] [place] [address] Dr. Gallo Infante Sodium [Moles/Vol] 136 mmol/L Normal 136-145 [facility] Comment on above: Performed By: #### D SHARIFA, TSH #### [facility] [address] [place] [address] Dr. Gallo Infante Urea nitrogen [Mass/Vol] 45.0 mg/dL Critically high 7.0-18.0 [facility] Comment on above: Performed By: #### D SHARIFA, TSH #### [facility] [address] [place] [address] Dr. Gallo Infante Urea nitrogen/Creatinine [Mass ratio] 18.2 mg/mg Normal [facility] Comment on above: Performed By: #### D SHARIFA, TSH #### [facility] [address] [place] [address] Dr. Gallo Infante VITAMIN D 25 OHon 04-16-2022 VIT D 25-OH 39.4 ng/mL Normal [facility] Comment on above: Performed By: #### D SHARIFA, TSH #### [facility] [address] [place] [address] Dr. Gallo Infante VIT D RANGES SEE BELOW Normal [facility] Comment on above: Result Comment: <20 ng/mL Vit D deficient 20 - <30 ng/mL Vit D insufficient 30 - 100 ng/mL Vit D sufficient >100 ng/mL Potential Toxicity Performed By: #### D SHARIFA, TSH #### [facility] [address] [address] [address] Gallo Infante CBC W/DIFFon 02-20-2022 ABS IMM GRANS 0.0 10*3/uL Normal 0.0-0.2 [facility] Comment on above: Performed By: #### 3 1569, , [id number] #### [facility] [address] [place] [address], [facility] ABS NEUTROPHILS 4.6 10*3/uL Normal 1.6-7.6 [facility] Comment on above: Performed By: #### 3 156, , 85487 #### [facility] [address] [address], [facility] Basophils (Bld) [#/Vol] 0.0 10*3/uL Normal 0.0-0.2 [facility] Comment on above: Performed By: #### 3 156, , 71159 #### [facility] [address] [place] [id number], [facility] Basophils/100 WBC (Bld) 0.5 % Normal 0.0-1.0 [facility] Comment on above: Performed By: #### 3 156, , 64108 #### [facility] [address] [place] [address], [facility] Eosinophils (Bld) [#/Vol] 0.2 10*3/uL Normal 0.0-0.5 [facility] Comment on above: Performed By: #### 3 156, , 60587 #### [facility] [address] [place] [address], [place] Eosinophils/100 WBC (Bld) 2.6 % Normal 0.0-6.0 [facility] Comment on above: Performed By: #### 3 156, , 98975 #### [facility] [address] [place] [id number], [place] Erythrocyte distribution width (RBC) [Ratio] 13.1 % Normal 11.5-15.0 [facility] Comment on above: Performed By: #### 3 1568, , 08487 #### [facility] [address] Hematocrit (Bld) [Volume fraction] 41.2 % Normal 39.0-50.0 [facility] Comment on above: Performed By: #### 3 156, , 40664 #### [facility] [address] [facility] [address] Hemoglobin (Bld) [Mass/Vol] 14.2 g/dL Normal 13.0-17.0 [facility] Comment on above: Performed By: #### 3 1568, , 01487 #### [facility] [address] [facility]. [address] IMMATURE GRANS 0.3 % Normal 0.0-1.0 [facility] Comment on above: Performed By: #### 3 1568, , 14426 #### [facility] [address] [facility]. [address] Lymphocytes (Bld) [#/Vol] 2.1 10*3/uL Normal 1.2-4.0 [facility] Comment on above: Performed By: #### 3 1568, , 66914 #### [facility] [address] [facility]. [address] Lymphocytes/100 WBC (Bld) 27.6 % Normal 20.0-45.0 [facility] Comment on above: Performed By: #### 3 1568, , 98646 #### [facility] [address] [facility] [address], [facility] MCH (RBC) [Entitic mass] 30.5 pg Normal 27.0-33.0 [facility] Comment on above: Performed By: #### 3 1568, , 24899 #### [facility] [address] [place] [address], [facility] MCHC (RBC) [Mass/Vol] 34.5 g/dL Normal 32.0-35.0 [facility] Comment on above: Performed By: #### 3 156, , 65698 #### [facility] [address] [place] [id number], [facility] MCV (RBC) [Entitic vol] 88.4 fL Normal 82.0-98.0 T [facility] Comment on above: Performed By: #### 3 1568, , 88148 #### [facility] [address] [facility] [place] [address], [facility] Monocytes (Bld) [#/Vol] 0.7 10*3/uL Normal 0.1-1.0 [facility] Comment on above: Performed By: #### 3 1568, , 15666 #### [facility] [address] [facility] [place] [address], [facility] MONOS 9.5 % Normal 5.0-12.0 [facility] Comment on above: Performed By: #### 3 1568, , 23932 #### [facility] [address] [place] [address], [facility] Neutrophils/100 WBC (Bld) 59.5 % Normal 40.0-72.0 [facility] Comment on above: Performed By: #### 3 1568, , 46248 #### [facility] [address] [place] [id number], [facility] Nucleated RBC/100 WBC (Bld) [Ratio] 0 % Normal 0-0 [facility] Comment on above: Performed By: #### 3 156, , 62244 #### [facility] [address] [place] [address], [place] PLAT CNT 149 10*3/uL Low 150-400 [facility] Comment on above: Performed By: #### 3 1569, 05063, 60458 #### [facility] [address] [place] [address], [facility] RBC (Bld) [#/Vol] 4.66 10*6/uL Normal 4.20-5.70 [facility] Comment on above: Performed By: #### 3 1569, 26297, 00327 #### [facility] [address] [place] [address], [facility] WBC (Bld) [#/Vol] 7.68 10*3/uL Normal 4.00-10.60 [facility] Comment on above: Performed By: #### 3 1569, 25135, 73008 #### [facility] [address] [place] [address], [facility] COMP METABOLIC PANELon 02-20 Albumin [Mass/Vol] 3.6 g/dL Normal 3.5-5.7 [facility] Comment on above: Performed By: #### 0 0121 #### [facility] [address] [place] [address], [facility] ALKALINE PHOSPH 122 IU/L High 34-104 [facility] Comment on above: Performed By: #### 0 0121 #### [facility] [address] [place] [address], [facility] ALT [Catalytic activity/Vol] 70 U/L High 7-52 [facility] Comment on above: Performed By: #### 0 0121 #### [facility] [address] [place] [address], [facility] AST [Catalytic activity/Vol] 44 U/L High 13-39 [facility] Comment on above: Performed By: #### 0 0121 #### [facility] [address] [place] [address], [place] Bilirubin [Mass/Vol] 0.5 mg/dL Normal 0.3-1.0 [facility] Comment on above: Performed By: #### 0 0121 #### [facility] [address] [place] [address], [facility] Calcium [Mass/Vol] 9.0 mg/dL Normal 8.6-10.3 [facility] Comment on above: Performed By: #### 0 0121 #### [facility] [address] [place] [address], [facility] Chloride [Moles/Vol] 99 mmol/L Normal 98-107 [facility] Comment on above: Performed By: #### 0 0121 #### [facility] [address] [place] [address], [facility] CO2 [Moles/Vol] 30 mmol/L Normal 21-31 [facility] Comment on above: Performed By: #### 0 0121 #### [facility] [address] [place] [address], [facility] Creatinine [Mass/Vol] 2.80 mg/dL High 0.70-1.30 [facility] Comment on above: Performed By: #### 0 0121 #### [facility] [address] [facility] [place] [address], [facility] EGFR 23 ml/min/1.73sq m Abnormal >60 [facility] Comment on above: Result Comment: [facility]'s estimated glomerular filtration rate (eGFR) will no [...] individuals. Performed By: #### 0 0121 #### [facility] [address] [place] [id number], [facility] Glucose [Mass/Vol] 165 mg/dL High 70-100 [facility] Comment on above: Performed By: #### 0 0121 #### [facility] [address] [place] [address], [facility] Potassium [Moles/Vol] 4.2 mmol/L Normal 3.5-5.1 [facility] Comment on above: Performed By: #### 0 0121 #### [facility] [address] [place] [address], [facility] Protein [Mass/Vol] 7.2 g/dL Normal 6.0-8.3 [facility] Comment on above: Performed By: #### 0 0121 #### [facility] [address] [place] [address], [facility] Sodium [Moles/Vol] 137 mmol/L Normal 136-145 [facility] Comment on above: Performed By: #### 0 0121 #### [facility] [address] [place] [address], [facility] Urea nitrogen [Mass/Vol] 44 mg/dL High 7-25 [facility] Comment on above: Performed By: #### 0 0121 #### [facility] [address] [place] [address], [facility] ALBUMIN BLOODon 11-21-2021 Albumin [Mass/Vol] 3.3 g/dL Low 3.5-5.7 [facility] Comment on above: Performed By: #### 1 0070, 98193, 18303, 26267, 24570, 93621 #### [facility] [address] [place] [address], [facility] BASIC METABOLIC PANELon 11-11 Calcium [Mass/Vol] 8.5 mg/dL Low 8.6-10.3 [facility] Comment on above: Performed By: #### 1 0070, 19834, 85989, 21046, 38417, 96913 #### [facility] [address] [place] [address], [facility] Chloride [Moles/Vol] 104 mmol/L Normal 98-107 [facility] Comment on above: Performed By: #### 1 0070, 12611, 45881, 02769, 27272, 78286 #### [facility] [address] [place] [address], [place] CO2 [Moles/Vol] 27 mmol/L Normal 21-31 [facility] Comment on above: Performed By: #### 1 0070, 96188, 74754, 43210, 56107, 12923 #### [facility] [address] [place] [address], [facility] Creatinine [Mass/Vol] 2.70 mg/dL High 0.70-1.30 [facility] Comment on above: Performed By: #### 1 0070, 90241, 05934, 73217, 18728, 52339 #### [facility] [address] [place] [address], [facility] eGFR- 28 ml/min/1.73sq m Abnormal >60 [facility] Comment on above: Result Comment: Calc ulation may not be valid for patients over 70 years Performed By: #### 1 0070, 21148, 40018, 35025, 67318, 09922 #### [facility] [address] [place] [address], [facility] eGFR- non- 23 ml/min/1.73sq m Abnormal >60 [facility] Comment on above: Result Comment: Calc ulation may not be valid for patients over 70 years Performed By: #### 1 0070, 03468, 33231, 38144, 03770, 52959 #### [facility] [address] [place] [address], [place] Glucose [Mass/Vol] 321 mg/dL High 70-100 [facility] Comment on above: Performed By: #### 1 0070, 05705, 36158, 74244, 83774, 66940 #### [facility] [address] [place] [address], [facility] Potassium [Moles/Vol] 4.3 mmol/L Normal 3.5-5.1 [facility] Comment on above: Performed By: #### 1 0070, 61955, 54435, 64845, 90305, 27392 #### [facility] [address] [place] [address], [facility] Sodium [Moles/Vol] 136 mmol/L Normal 136-145 [facility] Comment on above: Performed By: #### 1 0070, 05847, 86693, 48052, 30931, 69188 #### [facility] [address] [place] [address], [facility] Urea nitrogen [Mass/Vol] 44 mg/dL High 7-25 [facility] Comment on above: Performed By: #### 1 0070, 37626, 59099, 31799, 30415, 67072 #### [facility] [address] [place] [address], [facility] CREATININE URINE RANDOMon Creatinine (U) [Mass/Vol] 67.0 mg/dL Normal [facility] Comment on above: Result Comment: Ther e are no established reference values for random urine specimens Performed By: #### 3 1569, 13943, 34065 #### [facility] [address] [place] [address], [facility] FERRITINon 11-21-2021 Ferritin [Mass/Vol] 157 ng/mL Normal 24-336 [facility] Comment on above: Performed By: #### 1 0070, 60083, 16712, 32858, 33659, 98471 #### [facility] [address] [place] [address], [place] HEMOGLOBINon 11-21-2021 Hemoglobin (Bld) [Mass/Vol] 12.1 g/dL Low 13.0-17.0 [facility] Comment on above: Performed By: #### 3 1569, 91280, 52237 #### [facility] [address] [place] [address], [facility] MAGNESIUM BLOODon 11-21-2021 Magnesium [Mass/Vol] 1.8 mg/dL Low 1.9-2.7 [facility] Comment on above: Performed By: #### 1 0070, 57253, 98648, 53333, 16715, 75952 #### [facility] [address] [place] [address], [facility] PHOSPHORUS BLOODon 2 Phosphate [Mass/Vol] 2.8 mg/dL Normal 2.5-5.0 [facility] Comment on above: Performed By: #### 1 0070, 44933, 56357, 11040, 71364, 47474 #### [facility] [address] [facility] [place] [id number], [facility] T PROT UR Celia 11-21-2021 U TOTAL PROTEIN 107.2 mg/dL Normal [facility] Comment on above: Result Comment: Ther e are no established reference values for random urine specimens Performed By: #### 3 1569, 00431, 30992 #### [facility] [address] [place] [address], [facility] TIBC- INCLUDES IRONon 2021 FE SATURATION 15 % Low 20-50 [facility] Comment on above: Performed By: #### 1 0070, 75262, 22328, 51594, 78643, 11782 #### [facility] [address] [place] [address], [place] Iron [Mass/Vol] 41 ug/dL Low 50-212 [facility] Comment on above: Performed By: #### 1 0070, 60192, 68250, 19551, 70715, 53010 #### [facility] [address] [place] [address], [place] TIBC 271 mcg/dL Normal 250-450 [facility] Comment on above: Performed By: #### 1 0070, 06879, 68717, 16979, 57517, 13562 #### [facility] [address] [place] [address], [facility] UIBC 230 mcg/dL Normal 155-355 [facility] Comment on above: Performed By: #### 1 0070, 65242, 86373, 20331, 71697, 16254 #### [facility] [address] [place] [address], [facility] ALBUMINon 09-28-2021 Albumin [Mass/Vol] 2.8 g/dL Critically low 3.4-5.0 [facility] Comment on above: Performed By: #### P HOS, MG, ALB, BMP #### [facility] [address] [place] [address] Dr. Gallo Infante CREATININE URINEon URINE CREAT 79.37 mg/dL Normal 20.00-300.00 [facility] Comment on above: Performed By: #### C KAREEM PROTU #### [facility] [address] [place] [address] Dr. Gallo Infante HEMOGLOBINon 09-28-2021 Hemoglobin (Bld) [Mass/Vol] 12.8 g/dL Critically low 14.0-18.0 [facility] Comment on above: Performed By: #### H GB #### [facility] [address] [place] [address] Dr. Gallo Infante MAGNESIUMon 09-28-2021 Magnesium [Mass/Vol] 2.0 mg/dL Normal 1.6-2.3 [facility] Comment on above: Performed By: #### P HOS, MG, ALB, BMP #### [facility] [address] [place] [address] Dr. Gallo Ifnante PHOSPHORUSon 09-28-2021 Phosphate [Mass/Vol] 3.9 mg/dL Normal 2.5-4.5 [facility] Comment on above: Performed By: #### P HOS, MG, ALB, BMP #### [facility] [address] [place] [address] Dr. Gallo Infante PROF CHEM 8 (BAS METB)on Anion gap [Moles/Vol] 8.6 mmol/L Normal [facility] Comment on above: Performed By: #### P HOS, MG, ALB, BMP #### [facility] [address] [place] [address] Dr. Gallo Infante Calcium [Mass/Vol] 8.3 mg/dL Critically low 8.5-10.1 [facility] Comment on above: Performed By: #### P HOS, MG, ALB, BMP #### [facility] [address] [place] [address] Dr. Gallo Infante Chloride [Moles/Vol] 103 mmol/L Normal 98-107 [facility] Comment on above: Performed By: #### P HOS, MG, ALB, BMP #### [facility] [address] [place] [address] Dr. Gallo Infante CO2 [Moles/Vol] 28.9 mmol/L Normal 22.0-30.0 [facility] Comment on above: Performed By: #### P HOS, MG, ALB, BMP #### [facility] [address] [place] [address] Dr. Gallo Infante Creatinine [Mass/Vol] 2.49 mg/dL Critically high 0.66-1.25 [facility] Comment on above: Performed By: #### P HOS, MG, ALB, BMP #### [facility] [address] [place] [address] Dr. Gallo Infante EGFR-AF SURINAMESE 31 mL/min/1.73m2 Critically low >=60 [facility] Comment on above: Performed By: #### P HOS, MG, ALB, BMP #### [facility] [address] [place] [address] Dr. Gallo Infante EGFR-NON AF SURINAMESE 25 mL/min/1.73m2 Critically low >=60 [facility] Comment on above: Performed By: #### P HOS, MG, ALB, BMP #### [facility] [address] [place] [address] Dr. Gallo Infante Glucose [Mass/Vol] 197 mg/dL Critically high 74-106 T [facility] Comment on above: Performed By: #### P HOS, MG, ALB, BMP #### [facility] [address] [place] [address] Dr. Gallo Infante Potassium [Moles/Vol] 4.5 mmol/L Normal 3.4-5.0 [facility] Comment on above: Performed By: #### P HOS, MG, ALB, BMP #### [facility] [address] [place] [address] Dr. Gallo Infante Sodium [Moles/Vol] 136 mmol/L Critically low 137-145 Th [facility] Comment on above: Performed By: #### P HOS, MG, ALB, BMP #### [facility] [address] [place] [address] Dr. Gallo Infante Urea nitrogen [Mass/Vol] 42.0 mg/dL Critically high 7.0-18.0 [facility] Comment on above: Performed By: #### P HOS, MG, ALB, BMP #### [facility] [address] [place] [address] Dr. Gallo Infante Urea nitrogen/Creatinine [Mass ratio] 16.9 mg/mg Normal [facility] Comment on above: Performed By: #### P HOS, MG, ALB, BMP #### [facility] [address] [place] [address] Dr. Gallo Infante PROTEIN RAND URINEon 022 UR PROT 166.1 mg/dL Critically high <=12.0 [facility] Comment on above: Performed By: #### C REAU, PROTU #### [facility] [address] [place] [address] Dr. Gallo Infante *URINE CULTUREon 08-22-2021 *URINE CULTURE Clinical Report: (D) Specimen: URINE Collected: 08/22/2021 15:12 Status: Final Last Updated: 08/24/2021 07:56 ISO (Final) >100,000 Cfu/Ml Mixed Gram Positive Yumiko Normal [facility] Comment on above: Performed By: #### 3 1569, , 35208 #### [facility] [address] [place] [address], [facility] HEMOGLOBIN A1Con 08-22-2021 Glucose [Moles/Vol] 203 mmol/L Normal [facility] Comment on above: Performed By: #### 3 1569, , 71883 #### [facility] [address] [place] [address], [facility] HbA1c (Bld) [Mass fraction] 8.7 % High 4.0-6.0 [facility] Comment on above: Performed By: #### 3 1569, , 08084 #### [facility] [address] [facility] [place] [id number], [facility] UA,MICROSCOPIC REQUIREDon Appearance (U) CLEAR Normal CLEAR [facility] Comment on above: Performed By: #### 3 156, , 84913 #### [facility] [address] [place] [address], [facility] Bilirubin Ql (U) Negative Normal NEGATIVE [facility] Comment on above: Performed By: #### 3 156, , 35785 #### [facility] [address] [place] [address], [facility] Color (U) YELLOW Normal YELLOW [facility] Comment on above: Performed By: #### 3 156, , 66385 #### [facility] [address] [place] [address], [place] EPIS OCC Normal FEW,OCC,NONE SEEN [facility] Comment on above: Performed By: #### 3 156, , 84810 #### [facility] [address] [place] [address], [place] Glucose Ql (U) 50 mg/dL Abnormal NEGATIVE [facility] Comment on above: Performed By: #### 3 156, , 43031 #### [facility] [address] [place] [address], [place] Hemoglobin Ql (U) Negative Normal NEGATIVE [facility] Comment on above: Performed By: #### 3 1569, , 13383 #### [facility] [address] [place] [address], [place] KETONE Negative Normal NEGATIVE [facility] Comment on above: Performed By: #### 3 1569, , 46050 #### [facility] [address] [place] [address], [place] LEUK EDUARD Negative Normal NEGATIVE [facility] Comment on above: Performed By: #### 3 1569, , 04011 #### [facility] [address] [place] [address], [facility] MUCUS THREADS OCC Abnormal NONE SEEN [facility] Comment on above: Performed By: #### 3 1569, , 79997 #### [facility] [address] [place] [address], [place] Nitrite Ql (U) Negative Normal NEGATIVE [facility] Comment on above: Performed By: #### 3 1569, , 30491 #### [facility] [address] [place] [address], [place] pH (U) 5.0 [pH] Normal 5.0-8.0 [facility] Comment on above: Performed By: #### 3 1569, , 09298 #### [facility] [address] [place] [address], [place] Protein Ql (U) 100 mg/dL Abnormal NEGATIVE [facility] Comment on above: Performed By: #### 3 1569, , 62050 #### [facility] [address] [place] [address], [place] RBC NONE SEEN Normal NONE SEEN [facility] Comment on above: Performed By: #### 3 1569, 47735, 99618 #### [facility] [address] [place] [address], [facility] SPEC GRAV 1.012 Low 1.015-1.020 [facility] Comment on above: Performed By: #### 3 1569, 15214, 42308 #### [facility] [address] [place] [address], [facility] WBC UA 0-2 Abnormal NONE SEEN [facility] Comment on above: Performed By: #### 3 1569, 87320, 96023 #### [facility] [address] Otolaryngology Office/Clinic Noteon 08-20-2021 Otolaryngology Office/Clinic [...] Joya Burgess PA-C 08/23/21 09:50 EST Normal [facility] Otolaryngology Office/Clinic Noteon 07-31-2021 Otolaryngology Office/Clinic Note [...] Ryan Bartlett MD 07/31/21 11:16 EST Normal [facility] *URINE CULTUREon 07-24-2021 *URINE CULTURE Clinical Report: (D) Specimen: URINE Collected: 07/24/2021 00:00 Status: Final Last Updated: 07/26/2021 08:31 ISO (Final) Klebsiella (Enterobacter) aerogenes >100,000 Cfu/Ml ISOLATE: Klebsiella (Enterobacter) aerogenes --- NICK (mcg/ml) AMP./SULBAC (AMS) 16/8 Resistant AMPICILLIN (AM) >16 Resistant AZTREONAM (AZM) <=2 Susceptible CEFAZOLIN (CZ) >16 Resistant CEFTRIAXONE (MILLER SUPERVISOR) <=1 Susceptible CIPROFLOXACIN (CIP) <=0.25 Susceptible GENTAMICIN (GM) <=2 Susceptible NITROFURANTOIN (FT) >64 Resistant PIP/TAZO (TZP) 8/4 Susceptible TOBRAMYCIN (TOB) <=2 Susceptible TRIMETH/SULFA (SXT) <=0.5/9.5 Susceptible Normal [facility] Comment on above: Performed By: #### 3 1569, 38668, 75106 #### [facility] [address] [place] [address], [facility] UA,MICROSCOPIC REQUIREDon Appearance (U) TURBID Abnormal CLEAR [facility] Comment on above: Performed By: #### 3 1569, 68173, 52755 #### [facility] [address] [place] [address], [place] Bilirubin Ql (U) Negative Normal NEGATIVE [facility] Comment on above: Performed By: #### 3 1569, 91990, 92204 #### [facility] [address] [place] [address], [place] Color (U) CHE Abnormal YELLOW [facility] Comment on above: Performed By: #### 3 1569, , 01453 #### [facility] [address] [place] [address], [place] EPIS NONE SEEN Normal FEW,OCC,NONE SEEN [facility] Comment on above: Performed By: #### 3 1569, 19785, 52846 #### [facility] [address] [place] [address], [place] Glucose Ql (U) Negative Normal NEGATIVE [facility] Comment on above: Performed By: #### 3 1569, , 53646 #### [facility] [address] [place] [address], [place] Hemoglobin Ql (U) Negative Normal NEGATIVE [facility] Comment on above: Performed By: #### 3 1569, , 38463 #### [facility] [address] [place] [address], [place] KETONE Negative Normal NEGATIVE [facility] Comment on above: Performed By: #### 3 1569, , 74420 #### [facility] [address] [place] [address], [place] LEUK EDUARD MODERATE Abnormal NEGATIVE [facility] Comment on above: Performed By: #### 3 1569, , 27298 #### [facility] [address] [place] [address], [place] Nitrite Ql (U) Negative Normal NEGATIVE [facility] Comment on above: Performed By: #### 3 1569, , 98647 #### [facility] [address] [place] [address], [place] pH (U) 5.0 [pH] Normal 5.0-8.0 [facility] Comment on above: Performed By: #### 3 1569, , 98684 #### [facility] [address] [facility] [place] [address], [place] Protein Ql (U) >=500 Abnormal NEGATIVE [facility] Comment on above: Performed By: #### 3 1569, 04990, 87185 #### [facility] [address] [place] [address], [place] RBC NONE SEEN Normal NONE SEEN [facility] Comment on above: Performed By: #### 3 1569, 39738, 49189 #### [facility] [address] [place] [address], [place] SPEC GRAV 1.011 Low 1.015-1.020 [facility] Comment on above: Performed By: #### 3 1569, 36473, 69184 #### [facility] [address] [place] [address], [place] WBC UA >100 Abnormal NONE SEEN [facility] Comment on above: Performed By: #### 3 1569, 24680, 94244 #### [facility] [address] [place] [address], [facility] PROSTATE SPEC AG FREE % ILon 07-20-2021 FREE PSA 0.3 ug/L Normal [facility] IL Normal [facility] Comment on above: Result Comment: Test Performed by [employer] [address] [place] [address] - Released 07/23/2021 14:16 Result changed by IF on 07/23/2021 14:16. The previous value was Test Performed by [employer] [address] [place] [phone].. PROSTATIC SPEC AG 0.7 ug/L Normal 0.0-4.0 [facility] Comment on above: Result Comment: Siemens RadioScapeulite 2000 immunometric chemiluminescent assay is used. Results obtained with different assay methods or instruments cannot be used interchangeably. PSA PERCENT FREE 42.9 % Normal [facility] Comment on above: Result Comment: In patients [...] rectal examination findings. BASIC METABOLIC PANELon 12-0 Calcium [Mass/Vol] 8.4 mg/dL Low 8.6-10.3 [facility] Comment on above: Performed By: #### 3 1569, 95247, 28481 #### [facility] [address] [place] [id number], [facility] Chloride [Moles/Vol] 107 mmol/L Normal 98-107 [facility] Comment on above: Performed By: #### 3 1569, 54933, 18264 #### [facility] [address] [place] [address], [place] CO2 [Moles/Vol] 22 mmol/L Normal 21-31 [facility] Comment on above: Performed By: #### 3 1569, 98464, 79558 #### [facility] [address] [place] [address], [place] Creatinine [Mass/Vol] 2.26 mg/dL High 0.70-1.30 [facility] Comment on above: Performed By: #### 3 156, 45180, 16064 #### [facility] [address] [place] [address], [facility] eGFR- 34 ml/min/1.73sq m Abnormal >60 [facility] Comment on above: Result Comment: Calc ulation may not be valid for patients over 70 years Performed By: #### 3 1569, 08827, 99464 #### [facility] [address] [place] [address], [place] eGFR- non- 28 ml/min/1.73sq m Abnormal >60 [facility] Comment on above: Result Comment: Calc ulation may not be valid for patients over 70 years Performed By: #### 3 1569, 66611, 75730 #### [facility] [address] [place] [address], [facility] Glucose [Mass/Vol] 250 mg/dL High 70-100 [facility] Comment on above: Performed By: #### 3 1569, , 85855 #### [facility] [address] [place] [id number], [facility] Potassium [Moles/Vol] 4.1 mmol/L Normal 3.5-5.1 [facility] Comment on above: Performed By: #### 3 156, , 13103 #### [facility] [address] [place] [address], [facility] Sodium [Moles/Vol] 137 mmol/L Normal 136-145 [facility] Comment on above: Performed By: #### 3 156, , 78846 #### [facility] [address] [address] Urea nitrogen [Mass/Vol] 38 mg/dL High 7-25 [facility] Comment on above: Performed By: #### 3 1568, , 30423 #### [facility] [address] [facility] [address], [facility] CBC W/DIFFon 06-20-2021 ABS IMM GRANS 0.0 10*3/uL Normal 0.0-0.2 [facility] Comment on above: Performed By: #### 3 156, , 08736 #### [facility] [address] [facility] [place] [address], [facility] ABS NEUTROPHILS 6.5 10*3/uL Normal 1.6-7.6 [facility] Comment on above: Performed By: #### 3 156, , 71479 #### [facility] [address] [place] [address], [facility] Basophils (Bld) [#/Vol] 0.1 10*3/uL Normal 0.0-0.2 [facility] Comment on above: Performed By: #### 3 156, , 74684 #### [facility] [address] [place] [id number], [place] Basophils/100 WBC (Bld) 0.7 % Normal 0.0-1.0 T [facility] Comment on above: Performed By: #### 3 156, , 58091 #### [facility] [address] [place] [address], [place] Eosinophils (Bld) [#/Vol] 0.3 10*3/uL Normal 0.0-0.5 [facility] Comment on above: Performed By: #### 3 156, , 81248 #### [facility] [address] [place] [address], [facility] Eosinophils/100 WBC (Bld) 2.6 % Normal 0.0-6.0 [facility] Comment on above: Performed By: #### 3 1568, , 24109 #### [facility] [address] [place] [address], [place] Erythrocyte distribution width (RBC) [Ratio] 14.3 % Normal 11.5-15.0 [facility] Comment on above: Performed By: #### 3 156, , 11429 #### [facility] [address] [place] [id number], [facility] Hematocrit (Bld) [Volume fraction] 35.8 % Low 39.0-50.0 [facility] Comment on above: Performed By: #### 3 156, , 98514 #### [facility] [address] [place] [address], [place] Hemoglobin (Bld) [Mass/Vol] 11.6 g/dL Low 13.0-17.0 [facility] Comment on above: Performed By: #### 3 156, , 85393 #### [facility] [address] IMMATURE GRANS 0.4 % Normal 0.0-1.0 [facility] Comment on above: Performed By: #### 3 156, , 42345 #### [facility] [address] [place] [address], [facility] Lymphocytes (Bld) [#/Vol] 1.7 10*3/uL Normal 1.2-4.0 [facility] Comment on above: Performed By: #### 3 156, , 71953 #### [facility] [address] [place] [address], [facility] Lymphocytes/100 WBC (Bld) 17.9 % Low 20.0-45.0 [facility] Comment on above: Performed By: #### 3 1568, , 48184 #### [facility] [address] MCH (RBC) [Entitic mass] 27.8 pg Normal 27.0-33.0 [facility] Comment on above: Performed By: #### 3 1568, , 97215 #### [facility] [address] MCHC (RBC) [Mass/Vol] 32.4 g/dL Normal 32.0-35.0 [facility] Comment on above: Performed By: #### 3 1568, , 41856 #### [facility] [address] [place] [address], [facility] MCV (RBC) [Entitic vol] 85.9 fL Normal 82.0-98.0 T [facility] Comment on above: Performed By: #### 3 156, , 83657 #### [facility] [address] [place] [address], [facility] Monocytes (Bld) [#/Vol] 0.9 10*3/uL Normal 0.1-1.0 [facility] Comment on above: Performed By: #### 3 1569, , 46810 #### [facility] [address] [place] [address], [place] MONOS 9.0 % Normal 5.0-12.0 [facility] Comment on above: Performed By: #### 3 156, , 34377 #### [facility] [address] [place] [address], [place] Neutrophils/100 WBC (Bld) 69.4 % Normal 40.0-72.0 [facility] Comment on above: Performed By: #### 3 156, , 95317 #### [facility] [address] [place] [address], [place] Nucleated RBC/100 WBC (Bld) [Ratio] 0 % Normal 0-0 [facility] Comment on above: Performed By: #### 3 156, , 11551 #### [facility] [address] [place] [address], [place] PLAT CNT 182 10*3/uL Normal 150-400 [facility] Comment on above: Performed By: #### 3 156, , 10188 #### [facility] [address] [place] [address], [place] RBC (Bld) [#/Vol] 4.17 10*6/uL Low 4.20-5.70 [facility] Comment on above: Performed By: #### 3 156, , 68833 #### [facility] [address] [place] [address], [place] WBC (Bld) [#/Vol] 9.44 10*3/uL Normal 4.00-10.60 [facility] Comment on above: Performed By: #### 3 156, , 79992 #### [facility] [address] [place] [address], [place] MAGNESIUM BLOODon 06-20-2021 Magnesium [Mass/Vol] 1.9 mg/dL Normal 1.9-2.7 [facility] Comment on above: Performed By: #### 3 1569, 60915, 92320 #### [facility] [address] TSH3 WITH REFLEX FT4on 06-20 TSH 3RD GENERATION 0.68 uIU/mL Normal 0.34-5.60 [facility] Comment on above: Performed By: #### 3 1569, 89720, 51818 #### [facility] [address] CBC Auto DifferentialOrdered By: Maldonado Wilson on 05-08-2021 [employer] # 0.16 [employer] [facility] Work Phone: Absolute Immature Granulocyte 0.05 [employer] Work Phone: Absolute Lymph # 1.64 [employer] Work Phone: [employer] [place] # 0.79 [employer] [facility] Work Phone: Basophils (Bld) [#/Vol] 0.04 10*3/uL [employer] Work Phone: Basophils/100 WBC (Bld) 1 % 0 - 2 % M [employer] Work Phone: Differential Type NOT REPORTED [employer] Work Phone: Eosinophils/100 WBC (Bld) 2 % 1 - 4 % [employer] Work Phone: Hematocrit (Bld) [Volume fraction] 38.0 % Low 40.7 - 50.3 % [employer] Phone: Hemoglobin.gastrointest inal spec 1 Ql (Stl) 12.0 g/dL Low 13.0 - 17.0 g/dL [employer] Work Phone: Immature granulocytes/100 WBC (Bld) 1 % High 0 [employer] Work Phone: Interpretation and review of laboratory results Abnormal [employer] Phone: Lymphocytes/100 WBC (Bld) 20 % Low 24 - 43 % [employer] Phone: MCH (RBC) [Entitic mass] 28.1 pg 25.2 - 33.5 pg [employer] Phone: MCHC (RBC) [Mass/Vol] 31.6 g/dL 28.4 - 34.8 g/dL [employer] Phone: MCV (RBC) [Entitic vol] 89.0 fL 82.6 - 102.9 fL [employer] Phone: Monocytes/100 WBC (Bld) 9 % 3 - 12 % M [employer] Phone: NRBC Automated 0.0 0.0 per 100 WBC [employer] Systems Phone: Platelet distribution width (Bld) [Ratio] 13.7 % 11.8 - 14.4 % [employer] Phone: Platelet Estimate NOT REPORTED [employer] Phone: Platelet mean volume (Bld) [Entitic vol] 11.0 fL 8.1 - 13.5 fL [employer] Phone: Platelets (Bld) [#/Vol] 182 10*3/uL [employer] Phone: RBC (Bld) [#/Vol] 4.27 10*6/uL 4.21 - 5.7 7 m/uL [employer] Phone: RBC (Bld) [#/Vol] NOT REPORTED [facility] Phone: Segmented neutrophils/100 WBC (Bld) 67 % High 36 - 65 % [employer] Phone: Segs Absolute 5.70 [employer] Work Phone: WBC (Bld) [#/Vol] 8.4 10*3/uL [facility] Work Phone: WBC (Bld) [#/Vol] NOT REPORTED [facility] Work Phone: [facility] Work Phone: Microscopic UrinalysisOrdere d By: Maldonado Wilson on 05-08-2021 - [facility] Work Phone: Amorphous, UA NOT REPORTED None [facility] Work Phone: Bacteria, UA 4+ Abnormal None [facility] Work Phone: Casts UA NOT REPORTED /LPF [facility] Work Phone: Crystals, UA NOT REPORTED None /HPF [facility] Work Phone: Epithelial Cells UA 0 TO 2 [facility] Work Phone: Interpretation and review of laboratory results Abnormal [facility] Work Phone: Mucus, UA NOT REPORTED None [facility] Work Phone: Other Observations UA NOT REPORTED NOT REQ. M [facility] Work Phone: RBC, UA 5 TO 10 [facility] Work Phone: Renal Epithelial, UA NOT REPORTED 0 /HPF [facility] Work Phone: Trichomonas, UA NOT REPORTED None [facility] Work Phone: WBC, UA GREATER THAN 100 [facility] Work Phone: Yeast, UA NOT REPORTED None [facility] Work Phone: [facility] Work Phone: UrinalysisOrdered By: Maldonado Wilson on 05-08-2021 Bilirubin Urine Negative NEGATIVE [facility] Work Phone: Color, UA Yellow Yellow [facility] Work Phone: Glucose, Ur 2+ Abnormal NEGATIVE [facility] Work Phone: Interpretation and review of laboratory results Abnormal [facility] Work Phone: Ketones Ql (U) Negative NEGATIVE [facility] Work Phone: Leukocyte esterase Test strip Ql (U) LARGE Abnormal NEGATIVE [facility] Work Phone: Nitrite, Urine Negative NEGATIVE [facility] Work Phone: pH, UA 6.0 [facility] Work Phone: Protein, UA 2+ Abnormal NEGATIVE [facility] Work Phone: Specific [place], UA 1.020 [facility] [employer] [facility] Work Phone: Turbidity UA Cloudy Abnormal Clear [facility] [employer] Work Phone: Urinalysis Comments NOT REPORTED [facility] Work Phone: Urine Hgb 1+ Abnormal NEGATIVE [facility] Work Phone: Urobilinogen, Urine Normal Normal [facility] [employer] Work Phone: [facility] Work Phone: BONE MARROW SCREENon 04-26-2 021 BONE MARROW SCR SEE BONE MARROW SPECIAL REPORT FORM Normal [facility] Comment on above: Performed By: #### 3 1569, 57742, 72940 #### [address] BIOPSY BONE MARROWon 04-13 CT BIOPSY BONE MARROW [facility] Department of Radiology [address] [place] [address] Patient Name: BERTHA PULIDO : 1945 Sex: M Age: Race: White Pt. Location: 29 Patient Status: O Ordered Date: 04/12/2021 2:50:00 PM Completed Date: 04/26/2021 12:19 PM Requesting Provider: LUIS FELIPE OLMSTEAD Attending Provider: LUIS FELIPE OLMSTEAD Report Copy To: TRACEY SEPULVEDA Signs & Symptoms: D47.2 Monoclonal gammopathy I10 History: [place] On ASA and Eliquis Covid 04/20/21 Leonora [...] risks are acceptable. Consent was obtained. Timeout: [place] protocol timeout verification performed. MEDICATIONS: 2 mg [...] posterior ilium. No immediate complications Approved by:Richar Magana 1:40 PM. I, Satish Camilo,have reviewed the image(s) and agree with the findings in this report. Electronically signed: Satish Camilo. Transcribed by: [email or web address], User Resident: RICHAR SIMPSON Electronically Signed by: SATISH CAMILO @ 04/26/2021 02:52 PM I personally read this/these film(s) with this resident Normal [facility] HEMATOLOGY COM[facility] RES[facility] Results faxed to ordering physician and sent to HIM Normal [facility] Comment on above: Result Comment: Test performed by [employer] * [address] [place] [address], [address] * [place], [place] * [phone] Prison Guard: Branden Echols M.D. RESULTS FAXED TO [phone] Performed By: #### 3 0689, 61598, 79084 #### [facility] [address] APTTon 04-23-2021 aPTT Coag (Bld) [Time] 30.9 s Normal 25.0-35.0 Th [facility] Comment on above: Result Comment: ALL RESULTS [...] PURPOSE. Performed By: #### 3 156, , 59617 #### [facility] [address] [place] [address], [facility] CBC W/DIFFon 04-23-2021 ABS IMM GRANS 0.0 10*3/uL Normal 0.0-0.2 [facility] Comment on above: Performed By: #### 3 1568, , 65967 #### [facility] [address] [place] [address], [facility] ABS NEUTROPHILS 6.5 10*3/uL Normal 1.6-7.6 [facility] Comment on above: Performed By: #### 3 1568, , 16213 #### [facility] [address] [place] [address], [facility] Basophils (Bld) [#/Vol] 0.1 10*3/uL Normal 0.0-0.2 [facility] Comment on above: Performed By: #### 3 1568, , 81739 #### [facility] [address] [place] [address], [facility] Basophils/100 WBC (Bld) 0.5 % Normal 0.0-1.0 T [facility] Comment on above: Performed By: #### 3 1568, , 38675 #### [facility] [address] [facility] [place] [address], [facility] Eosinophils (Bld) [#/Vol] 0.1 10*3/uL Normal 0.0-0.5 [facility] Comment on above: Performed By: #### 3 1568, , 36693 #### [facility] [address] [facility] [place] [address], [facility] Eosinophils/100 WBC (Bld) 1.5 % Normal 0.0-6.0 [facility] Comment on above: Performed By: #### 3 1568, , 06998 #### [facility] [address] Erythrocyte distribution width (RBC) [Ratio] 14.5 % Normal 11.5-15.0 [facility] Comment on above: Performed By: #### 3 1568, , 53555 #### [facility] [address] Hematocrit (Bld) [Volume fraction] 35.1 % Low 39.0-50.0 [facility] Comment on above: Performed By: #### 3 1568, , 28847 #### [facility] [address] Hemoglobin (Bld) [Mass/Vol] 11.8 g/dL Low 13.0-17.0 [facility] Comment on above: Performed By: #### 3 1568, , 04412 #### [facility] [address] IMMATURE GRANS 0.4 % Normal 0.0-1.0 [facility] Comment on above: Performed By: #### 3 1568, , 70347 #### [facility] [address] Lymphocytes (Bld) [#/Vol] 2.1 10*3/uL Normal 1.2-4.0 [facility] Comment on above: Performed By: #### 3 1568, , 16075 #### [facility] [address] Lymphocytes/100 WBC (Bld) 21.6 % Normal 20.0-45.0 [facility] Comment on above: Performed By: #### 3 1568, , 61723 #### [facility] [address] [place] [address], [facility] MCH (RBC) [Entitic mass] 28.3 pg Normal 27.0-33.0 [facility] Comment on above: Performed By: #### 3 156, , 29886 #### [facility] [address] [place] [address], [facility] MCHC (RBC) [Mass/Vol] 33.6 g/dL Normal 32.0-35.0 [facility] Comment on above: Performed By: #### 3 156, , 89188 #### [facility] [address] [place] [address], [facility] MCV (RBC) [Entitic vol] 84.2 fL Normal 82.0-98.0 T [facility] Comment on above: Performed By: #### 3 156, , 76483 #### [facility] [address] [place] [address], [facility] Monocytes (Bld) [#/Vol] 0.8 10*3/uL Normal 0.1-1.0 [facility] Comment on above: Performed By: #### 3 156, , 70046 #### [facility] [address] [place] [address], [facility] MONOS 8.6 % Normal 5.0-12.0 [facility] Comment on above: Performed By: #### 3 156, , 57529 #### [facility] [address] [place] [address], [facility] Neutrophils/100 WBC (Bld) 67.4 % Normal 40.0-72.0 [facility] Comment on above: Performed By: #### 3 156, , 23590 #### [facility] [address] [place] [address], [facility] Nucleated RBC/100 WBC (Bld) [Ratio] 0 % Normal 0-0 [facility] Comment on above: Performed By: #### 3 1569, 82939, 24719 #### [facility] [address] [place] [address], [facility] PLAT CNT 150 10*3/uL Normal 150-400 [facility] Comment on above: Performed By: #### 3 1569, 13111, 50793 #### [facility] [address] [place] [address], [facility] RBC (Bld) [#/Vol] 4.17 10*6/uL Low 4.20-5.70 [facility] Comment on above: Performed By: #### 3 1569, 76773, 95162 #### [facility] [address] [place] [address], [facility] WBC (Bld) [#/Vol] 9.64 10*3/uL Normal 4.00-10.60 [facility] Comment on above: Performed By: #### 3 1569, 26595, 15944 #### [facility] [address] [place] [address], [facility] COMP METABOLIC PANELon 04-23 ALBUMIN CANCELED Normal 3.5-5.7 [facility] Comment on above: Order Comment: DR. Delores RODRIGUEZ LIKE A REDRAW TO CONFIRM RESULTS PER CALL WITH SEBAS TSE ON05.03.21. FAXED OUTPATIENT REDRAW SLIP TO [facility]. Result Comment: The released value 3.5 was canceled by [email or web address] on 04/24/2021 11:48 Performed By: #### 3 1569, 14312, 47655 #### [facility] [address] [facility] [place] [address], [facility] ALKALINE PHOSPH CANCELED Normal 34-104 [facility] Comment on above: Order Comment: DR. Delores RODRIGUEZ LIKE A REDRAW TO CONFIRM RESULTS PER CALL WITH SEBAS TSE 05.03.21. FAXED OUTPATIENT REDRAW SLIP TO [facility]. Result Comment: The released value 113 was canceled by [email or web address] on 04/24/2021 11:48 Performed By: #### 3 1569, 86911, 81690 #### [facility] [address] [place] [address], [facility] ALT (SGPT) CANCELED Normal 7-52 [facility] Comment on above: Order Comment: DR. Delores RODRIGUEZ LIKE A REDRAW TO CONFIRM RESULTS PER CALL WITH SEBAS TSE ON05.03.21. FAXED OUTPATIENT REDRAW SLIP TO [facility]. Result Comment: The released value 18 was canceled by [email or web address] on 04/24/2021 11:48 Performed By: #### 3 1569, 02317, 52377 #### [facility] [address] [place] [address], [facility] AST (SGOT) CANCELED Normal 13-39 [facility] Comment on above: Order Comment: DR. Delores RODRIGUEZ LIKE A REDRAW TO CONFIRM RESULTS PER CALL WITH SEBAS TSE ON05.03.21. FAXED OUTPATIENT REDRAW SLIP TO [facility]. Result Comment: The released value 15 was canceled by [email or web address] on 04/24/2021 11:48 Performed By: #### 3 1569, 44524, 89083 #### [facility] [address] [place] [address], [place] CALCIUM CANCELED Normal 8.6-10.3 [facility] Comment on above: Order Comment: DR. Delores RODRIGUEZ LIKE A REDRAW TO CONFIRM RESULTS PER CALL WITH SEBAS TSE ON05.03.21. FAXED OUTPATIENT REDRAW SLIP TO [facility]. Result Comment: The released value 8.8 was canceled by [email or web address] on 04/24/2021 11:48 Performed By: #### 3 1569, 83022, 47597 #### [facility] [address] [place] [address], [place] CARBON DIOXIDE CANCELED Normal 21-31 [facility] Comment on above: Order Comment: DR. Delores RODRIGUEZ LIKE A REDRAW TO CONFIRM RESULTS PER CALL WITH ESBAS TSE ON05.03.21. FAXED OUTPATIENT REDRAW SLIP TO [facility]. Result Comment: The released value 21 was canceled by [email or web address] on 04/24/2021 11:48 Performed By: #### 3 1569, 90443, 05904 #### [facility] [address] [place] [address], [facility] CHLORIDE CANCELED Normal 98-107 [facility] Comment on above: Order Comment: DR. Delores RODRIGUEZ LIKE A REDRAW TO CONFIRM RESULTS PER CALL WITH SEBAS TSE ON05.03.21. FAXED OUTPATIENT REDRAW SLIP TO [facility]. Result Comment: The released value 103 was canceled by [email or web address] on 04/24/2021 11:48 Performed By: #### 3 1569, 40706, 20243 #### [facility] [address] [place] [address], [facility] CREATININE CANCELED Normal 0.70-1.30 [facility] Comment on above: Order Comment: DR. Delores RODRIGUEZ LIKE A REDRAW TO CONFIRM RESULTS PER CALL WITH SEBAS TSE ON05.03.21. FAXED OUTPATIENT REDRAW SLIP TO [facility]. Result Comment: The released value 2.79 was canceled by [email or web address] on 04/24/2021 11:48 Performed By: #### 3 1569, 21558, 01523 #### [facility] [address] [place] [address], [facility] eGFR- CANCELED Normal >60 Th e [facility] Comment on above: Order Comment: DR. Delores RODRIGUEZ LIKE A REDRAW TO CONFIRM RESULTS PER CALL WITH SEBAS TSE ON05.03.21. FAXED OUTPATIENT REDRAW SLIP TO [facility]. Result Comment: Calc ulation may not be valid for patients over 70 years The released value 27 was canceled by [email or web address] on 04/24/2021 11:48 Performed By: #### 3 1569, 64365, 79866 #### [facility] [address] [place] [address], [facility] eGFR- non- CANCELED Normal >60 [facility] Comment on above: Order Comment: DR. Delores RODRIGUEZ LIKE A REDRAW TO CONFIRM RESULTS PER CALL WITH SEBAS TSE ON05.03.21. FAXED OUTPATIENT REDRAW SLIP TO [facility]. Result Comment: Calc ulation may not be valid for patients over 70 years The released value 22 was canceled by [email or web address] on 04/24/2021 11:48 Performed By: #### 3 1569, 42795, 94701 #### [facility] [address] [place] [address], [facility] GLUCOSE CANCELED Normal 70-100 [facility] Comment on above: Order Comment: DR. Delores RODRIGUEZ LIKE A REDRAW TO CONFIRM RESULTS PER CALL WITH SEBAS TSE ON05.03.21. FAXED OUTPATIENT REDRAW SLIP TO [facility]. Result Comment: The released value 201 was canceled by [email or web address] on 04/24/2021 11:48 Performed By: #### 3 1569, 24974, 02683 #### [facility] [address] [place] [address], [facility] POTASSIUM CANCELED Normal 3.5-5.1 [facility] Comment on above: Order Comment: DR. Delores RODRIGUEZ LIKE A REDRAW TO CONFIRM RESULTS PER CALL WITH SEBAS TSE 05.03.21. FAXED OUTPATIENT REDRAW SLIP TO [facility]. Result Comment: The released value 3.9 was canceled by [email or web address] on 04/24/2021 11:48 Performed By: #### 3 1569, 79157, 25347 #### [facility] [address] [place] [address], [facility] SODIUM CANCELED Normal 136-145 [facility] Comment on above: Order Comment: DR. Delores RODRIGUEZ LIKE A REDRAW TO CONFIRM RESULTS PER CALL WITH SEBAS TSE ON05.03.21. FAXED OUTPATIENT REDRAW SLIP TO [facility]. Result Comment: The released value 140 was canceled by [email or web address] on 04/24/2021 11:48 Performed By: #### 3 1569, 31531, 67603 #### [facility] [address] [place] [address], [facility] TOTAL BILI CANCELED Normal 0.3-1.0 [facility] Comment on above: Order Comment: DR. Delores RODRIGUEZ LIKE A REDRAW TO CONFIRM RESULTS PER CALL WITH SEBAS TSE ON05.03.21. FAXED OUTPATIENT REDRAW SLIP TO [facility]. Result Comment: The released value 0.5 was canceled by [email or web address] on 04/24/2021 11:48 Performed By: #### 3 1569, 23956, 23876 #### [facility] [address] [place] [address], [facility] TOTAL PROTEIN CANCELED Normal 6.0-8.3 [facility] Comment on above: Order Comment: DR. Delores RODRIGUEZ LIKE A REDRAW TO CONFIRM RESULTS PER CALL WITH SEBAS TSE ON05.03.21. FAXED OUTPATIENT REDRAW SLIP TO [facility]. Result Comment: The released value 7.1 was canceled by [email or web address] on 04/24/2021 11:48 Performed By: #### 3 1569, 41997, 17678 #### [facility] [address] [place] [address], [facility] UREA NITROGEN CANCELED Normal 7-25 [facility] Comment on above: Order Comment: DR. Delores RODRIGUEZ LIKE A REDRAW TO CONFIRM RESULTS PER CALL WITH SEBAS TSE 05.03.21. FAXED OUTPATIENT REDRAW SLIP TO [facility]. Result Comment: The released value 45 was canceled by [email or web address] on 04/24/2021 11:48 Performed By: #### 3 1569, 83501, 37592 #### [facility] [address] [place] [address], [facility] IMMUNOFIXATION BLOODon 04-23 IgA [Mass/Vol] 527 mg/dL High 60-413 [facility] Comment on above: Performed By: #### 3 1569, 36580, 56732 #### [facility] [address] [place] [address], [facility] IgG [Mass/Vol] 1790 mg/dL High 591-1540 [facility] Comment on above: Performed By: #### 3 1569, 51255, 64724 #### [facility] [address] [place] [address], [facility] IgM [Mass/Vol] 112 mg/dL Normal 54-285 [facility] Comment on above: Performed By: #### 3 1569, 81800, 78960 #### [facility] [address] 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 See separate report. Performed By: #### 3 1569, 69339, 00703 #### [facility] [address] [place] [address], [facility] PROTEIN ELECT Nikos 04-23-2021 Protein [Mass/Vol] 6.8 g/dL Normal 6.0-8.3 [facility] Comment on above: Performed By: #### 3 1569, 53002, 51556 #### [facility] [address] [place] [address], [facility] PROTEIN ELECT Normal [facility] Comment on above: Result Comment: Hypo albuminemia is seen. This may be dilutional (from I.V. fluids) or nutritional in origin. There is a diffuse (polyclonal) gammopathy. SEE SEPARATE REPORT Performed By: #### 3 1569, 61463, 65425 #### [facility] [address] [place] [address], [facility] PROTHROMBIN TIMEon 1 INR Coag (PPP) [Relative time] 1.30 {INR} High 0.91-1.16 [facility] Comment on above: Result Comment: ACCC P [...] RANGE. CHEST 1995;108:231S-246S. Performed By: #### 3 1299, 21695, 84908 #### [facility] [address] PT Coag (PPP) [Time] 16.2 s High 12.3-14.8 [facility] Comment on above: Result Comment: ALL RESULTS MUST BE INTERPRETED WITH RESPECT TO BLOOD DRAWING ARTIFACT OR DILUTION ERROR OF ANTICOAGULANT AT THE TIME OF SAMPLING. Performed By: #### 3 1569, 51524, 91962 #### [facility] [address] SERUM FREE LIGHT CHAINS ILon 04-23-2021 FREE KAPPA LIGHT CHAINS 9.73 mg/dL High 0.37-1.94 T [facility] FREE KAPPA/LAMBDA RATIO 1.51 Normal 0.26-1.65 T [facility] FREE LAMBDA LIGHT CHAINS 6.45 mg/dL High 0.57-2.63 [facility] IL Normal [facility] Comment on above: Result Comment: Test Performed by [employer] [address] [place] [address] - Released 04/23/2021 18:48 Result changed by IF on 04/23/2021 18:48. The previous value was Test Performed by [employer] [facility] [place], [place] [id number] [phone].. SKELETAL SURVEYon 04-20-2021 SKELETAL SURVEY [facility] Department of Radiology [address] [place] [address] Patient Name: BERTHA PULIDO : 1945 Sex: M Age: Race: White Pt. 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 TECHNIQUE: Frontal and lateral views of the skull, chest, abdomen, and spine, bilateral oblique views of the ribs, and frontal views of the upper and lower extremities obtained according to the guidelines for the [employer] FINDINGS: Bowel: No lytic [...] days. Electronically signed: Teressa Morrissey. Transcribed by: [id number], User Resident: Electronically Signed by: TERESSA MORRISSEY @ 04/20/2021 02:30 PM Normal [facility] BASIC METABOLIC PANELon 09- Calcium [Mass/Vol] 8.8 mg/dL Normal 8.6-10.3 [facility] Comment on above: Performed By: #### 3 1569, 47293, 67280 #### [facility] [address] [place] [address], [place] Chloride [Moles/Vol] 104 mmol/L Normal 98-107 [facility] Comment on above: Performed By: #### 3 1569, 84972, 86302 #### [facility] [address] [place] [address], [place] CO2 [Moles/Vol] 25 mmol/L Normal 21-31 [facility] Comment on above: Performed By: #### 3 1569, 26068, 72311 #### [facility] [address] [place] [address], [place] Creatinine [Mass/Vol] 2.56 mg/dL High 0.70-1.30 [facility] Comment on above: Performed By: #### 3 1569, 79087, 87465 #### [facility] [address] [place] [address], [place] eGFR- 30 ml/min/1.73sq m Abnormal >60 [facility] Comment on above: Result Comment: Calc ulation may not be valid for patients over 70 years Performed By: #### 3 1569, 06645, 71764 #### [facility] [address] [place] [id number], [facility] eGFR- non- 25 ml/min/1.73sq m Abnormal >60 [facility] Comment on above: Result Comment: Calc ulation may not be valid for patients over 70 years Performed By: #### 3 1569, 10819, 93268 #### [facility] [address] [place] [id number], [facility] Glucose [Mass/Vol] 219 mg/dL High 70-100 [facility] Comment on above: Performed By: #### 3 156, , 62577 #### [facility] [address] [place] [address], [facility] Potassium [Moles/Vol] 4.6 mmol/L Normal 3.5-5.1 [facility] Comment on above: Performed By: #### 3 156, 43104, 55725 #### [facility] [address] [place] [id number], [facility] Sodium [Moles/Vol] 136 mmol/L Normal 136-145 [facility] Comment on above: Performed By: #### 3 156, 55715, 45516 #### [facility] [address] [place] [id number], [facility] Urea nitrogen [Mass/Vol] 42 mg/dL High 7-25 [facility] Comment on above: Performed By: #### 3 156, 24150, 89958 #### [facility] [address] [place] [id number], [place] CBC W/DIFFon 03-28-2021 ABS IMM GRANS 0.0 10*3/uL Normal 0.0-0.2 [facility] Comment on above: Performed By: #### 3 156, , [id number] #### [facility] [address] [place] [id number], [facility] ABS NEUTROPHILS 6.4 10*3/uL Normal 1.6-7.6 [facility] Comment on above: Performed By: #### 3 156, , [id number] #### [facility] [address] [place] [address], [place] Basophils (Bld) [#/Vol] 0.1 10*3/uL Normal 0.0-0.2 [facility] Comment on above: Performed By: #### 3 156, , [id number] #### [facility] [address] [place] [address], [facility] Basophils/100 WBC (Bld) 0.7 % Normal 0.0-1.0 T [facility] Comment on above: Performed By: #### 3 [id number], , [id number] #### [facility] [address] [place] [address], [place] Eosinophils (Bld) [#/Vol] 0.1 10*3/uL Normal 0.0-0.5 [facility] Comment on above: Performed By: #### 3 1568, , [id number] #### [facility] [address] [place] [id number], [place] Eosinophils/100 WBC (Bld) 1.3 % Normal 0.0-6.0 [facility] Comment on above: Performed By: #### 3 1568, , [id number] #### [facility] [address] [place] [id number], [place] Erythrocyte distribution width (RBC) [Ratio] 14.6 % Normal 11.5-15.0 [facility] Comment on above: Performed By: #### 3 156, , [id number] #### [facility] [address] [place] [address], [facility] Hematocrit (Bld) [Volume fraction] 38.8 % Low 39.0-50.0 [facility] Comment on above: Performed By: #### 3 156, , [id number] #### [facility] [address] [place] [address], [facility] Hemoglobin (Bld) [Mass/Vol] 12.5 g/dL Low 13.0-17.0 [facility] Comment on above: Performed By: #### 3 156, , [id number] #### [facility] [address] [place] [address], [facility] IMMATURE GRANS 0.4 % Normal 0.0-1.0 [facility] Comment on above: Performed By: #### 3 1568, , [id number] #### [facility] [address] [place] [address], [facility] Lymphocytes (Bld) [#/Vol] 1.8 10*3/uL Normal 1.2-4.0 [facility] Comment on above: Performed By: #### 3 1568, , [id number] #### [facility] [address] [facility] [address], [facility] Lymphocytes/100 WBC (Bld) 19.6 % Low 20.0-45.0 [facility] Comment on above: Performed By: #### 3 1568, , 19552 #### [facility] [address] [place] [address], [facility] MCH (RBC) [Entitic mass] 27.7 pg Normal 27.0-33.0 [facility] Comment on above: Performed By: #### 3 156, , [id number] #### [facility] [address] [place] [address], [facility] MCHC (RBC) [Mass/Vol] 32.2 g/dL Normal 32.0-35.0 [facility] Comment on above: Performed By: #### 3 1569, , [id number] #### [facility] [address] [place] [id number], [facility] MCV (RBC) [Entitic vol] 85.8 fL Normal 82.0-98.0 T [facility] Comment on above: Performed By: #### 3 1569, , [id number] #### [facility] [address] [place] [id number], [facility] Monocytes (Bld) [#/Vol] 0.7 10*3/uL Normal 0.1-1.0 [facility] Comment on above: Performed By: #### 3 156, , 37811 #### [facility] [address] [place] [address], [place] MONOS 8.1 % Normal 5.0-12.0 [facility] Comment on above: Performed By: #### 3 156, , 29960 #### [facility] [address] [place] [id number], [facility] Neutrophils/100 WBC (Bld) 69.9 % Normal 40.0-72.0 [facility] Comment on above: Performed By: #### 3 156, , 81881 #### [facility] [address] [place] [id number], [facility] Nucleated RBC/100 WBC (Bld) [Ratio] 0 % Normal 0-0 [facility] Comment on above: Performed By: #### 3 156, , 85886 #### [facility] [address] [place] [id number], [place] PLAT CNT 152 10*3/uL Normal 150-400 [facility] Comment on above: Performed By: #### 3 156, , 80689 #### [facility] [address] [place] [id number], [place] RBC (Bld) [#/Vol] 4.52 10*6/uL Normal 4.20-5.70 [facility] Comment on above: Performed By: #### 3 1569, 02808, 60499 #### [facility] [address] [facility]. [address] WBC (Bld) [#/Vol] 9.17 10*3/uL Normal 4.00-10.60 [facility] Comment on above: Performed By: #### 3 1569, 64870, 17004 #### [facility] [address] [facility]. [address] HEMOGLOBIN A1Con 03-28-2021 Glucose [Moles/Vol] 183 mmol/L Normal [facility] Comment on above: Performed By: #### 3 1569, 68215, 12730 #### [facility] [address] [facility]. [address] HbA1c (Bld) [Mass fraction] 8.0 % High 4.0-6.0 [facility] Comment on above: Performed By: #### 3 1569, [id number], 85606 #### [facility] [address] [facility]. [address] MAGNESIUM BLOODon 03-28-2021 Magnesium [Mass/Vol] 2.0 mg/dL Normal 1.9-2.7 [facility] Comment on above: Performed By: #### 3 1569, 47424, 49617 #### [facility] [address] [facility]. [address] Basic Metabolic PanelOrdered By: Tracey Sepulveda on 02-07-2021 Anion gap [Moles/Vol] 12 mmol/L 9 - 17 mmol/L [employer] Phone: Calcium [Mass/Vol] 8.9 mg/dL 8.6 - 10. 4 mg/dL [employer] Phone: Chloride [Moles/Vol] 102 mmol/L 98 - 10 7 mmol/L [employer] Phone: CO2 [Moles/Vol] 20 mmol/L 20 - 31 mmol/L [employer] Phone: Creatinine [Mass/Vol] 2.55 mg/dL High 0.70 - 1.20 mg/dL [employer] Phone: GFR 30 mL/min Low >60 [employer] Phone: GFR Non- 25 mL/min Low >60 [employer] Phone: Glucose [Mass/Vol] 191 mg/dL High 70 - 99 mg/dL [employer] Phone: Interpretation and review of laboratory results Abnormal [employer] Phone: Potassium [Moles/Vol] 4.7 mmol/L 3.7 - 5.3 mmol/L [employer] Phone: Sodium [Moles/Vol] 134 mmol/L Low 135 - 144 mmol/L [employer] Phone: Urea nitrogen (BldV) [Mass/Vol] 51 mg/dL High 8 - 23 mg/dL [employer] Phone: Urea nitrogen/Creatinine (Bld) [Mass ratio] 20 [employer] Phone: Laboratory - Chemistry and C hemistry - challengeOrdered By: Tracey Sepulveda on 02-07-2021 GFR/1.73 sq M.predicted MDRD (S/P/Bld) [Vol rate/Area] [employer] Phone: Comment on above: Average GFR for 70 o r more years old: 75 mL/min/1.73sq m Chronic Kidney Disease: <60 mL/min/1.73sq m Kidney failure: <15 mL/min/1.73sq m eGFR calculated using average adult body mass. Additional eGFR calculator available at: http://www.velingo/multiple_crcl_2011.htm Stage 1: Some kidney damage normal GFR Stage 2: Mild kidney damage GFR 60-89 Stage 3: Moderate kidney damage GFR 30-59 Stage 4: Severe kidney damage GFR 15-29 Stage 5: Severe kidney damage GFR <15 ESRD - chronic treatment by dialysis or transplant MagnesiumOrdered By: Tracey weiner on 02-07-2021 Magnesium [Mass/Vol] 2.2 mg/dL 1.6 - 2 .6 mg/dL [facility] [employer] Work Phone: Microscopic UrinalysisOrdere d By: Tracey Sepulveda on 02-07-2021 - [facility] [employer] Work Phone: Amorphous, UA NOT REPORTED None [facility] Work Phone: Bacteria, UA 2+ Abnormal None [facility] [employer] Work Phone: Casts UA NOT REPORTED /LPF [facility] [employer] Work Phone: Crystals, UA NOT REPORTED None /HPF [facility] Work Phone: Epithelial Cells UA 0 TO 2 [facility] [employer] Work Phone: Interpretation and review of laboratory results Abnormal [facility] [employer] Work Phone: Mucus, UA NOT REPORTED None [facility] [employer] Work Phone: Other Observations UA NOT REPORTED NOT REQ. M [facility] [employer] Work Phone: RBC, UA 2 TO 5 [facility] [employer] Work Phone: Renal Epithelial, UA NOT REPORTED 0 /HPF [facility] Work Phone: Trichomonas, UA NOT REPORTED None [facility] Work Phone: WBC, UA GREATER THAN 100 [facility] Work Phone: Yeast, UA NOT REPORTED None [facility] [employer] Work Phone: [facility] [employer] Work Phone: No Panel InformationOrdered By: Tracey Sepulveda on 02-07-2021 [facility] [employer] Work Phone: PhosphorusOrdered By: Tracey Sepulveda on 02-07-2021 Phosphate [Mass/Vol] 4.1 mg/dL 2.5 - 4 .5 mg/dL [facility] [employer] Work Phone: UrinalysisOrdered By: Tracey Sepulveda on 02-07-2021 Bilirubin Urine Negative NEGATIVE [facility] Work Phone: Color, UA YELLOW YELLOW [facility] [employer] Work Phone: Glucose, Ur Negative NEGATIVE [facility] [employer] Work Phone: Interpretation and review of laboratory results Abnormal [facility] [employer] Work Phone: Ketones Ql (U) Negative NEGATIVE [facility] Work Phone: Leukocyte esterase Test strip Ql (U) LARGE Abnormal NEGATIVE [facility] [employer] Work Phone: Nitrite, Urine Negative NEGATIVE [facility] Work Phone: pH, UA 6.0 [facility] [employer] Work Phone: Protein, UA 2+ Abnormal NEGATIVE [facility] [employer] Work Phone: Specific [place], UA 1.020 [facility] [employer] Work Phone: Turbidity UA CLEAR CLEAR [facility] [employer] Work Phone: Urinalysis Comments NOT REPORTED [facility] [employer] Work Phone: Urine Hgb 1+ Abnormal NEGATIVE [facility] [employer] Work Phone: Urobilinogen, Urine Normal Normal [facility] [employer] Work Phone: [facility] [employer] Work Phone: C3 ComplementOrdered By: Cori Sepulveda on 01-19-2021 Complement C3 122 mg/dL 90 - 180 mg/dL [facility] [employer] Work Phone: C4 ComplementOrdered By: Cori Sepulveda on 01-19-2021 Complement C4 25 mg/dL 10 - 40 mg/dL [employer] Phone: CBCOrdered By: Tracey Sepulveda on 01-19-2021 Hematocrit (Bld) [Volume fraction] 34.0 % Low 40.7 - 50.3 % [employer] Phone: Hemoglobin.gastrointest inal spec 1 Ql (Stl) 11.1 g/dL Low 13.0 - 17.0 g/dL [employer] Phone: Interpretation and review of laboratory results Abnormal [employer] Phone: MCH (RBC) [Entitic mass] 28.4 pg 25.2 - 33.5 pg [employer] Phone: MCHC (RBC) [Mass/Vol] 32.6 g/dL 28.4 - 34.8 g/dL [employer] Phone: MCV (RBC) [Entitic vol] 87.0 fL 82.6 - 102.9 fL [employer] Phone: NRBC Automated 0.0 0.0 per 100 WBC [employer] Phone: Platelet distribution width (Bld) [Ratio] 14.4 % 11.8 - 14.4 % [employer] Phone: Platelet mean volume (Bld) [Entitic vol] 11.3 fL 8.1 - 13.5 fL [employer] Phone: Platelets (Bld) [#/Vol] 180 10*3/uL [employer] Phone: RBC (Bld) [#/Vol] 3.91 10*6/uL Low 4.21 - 5.7 7 m/uL [employer] Phone: WBC (Bld) [#/Vol] 8.8 10*3/uL [employer] Phone: [employer] Phone: Comprehensive Metabolic Pane lOrdered By: Tracey Sepulveda on 01-19-2021 Albumin [Mass/Vol] 3.6 g/dL 3.5 - 5.2 g/dL [employer] Phone: Albumin/Globulin [Mass ratio] 0.8 {ratio} Low [employer] Phone: ALP (Bld) [Catalytic activity/Vol] 113 U/L 40 - 129 U/L [employer] Phone: ALT [Catalytic activity/Vol] 50 U/L High 5 - 41 U/L [employer] Phone: Anion gap [Moles/Vol] 13 mmol/L 9 - 17 mmol/L [employer] Phone: AST [Catalytic activity/Vol] 27 U/L <40 [employer] Phone: Bilirubin [Mass/Vol] 0.27 mg/dL Low 0.3 - 1 .2 mg/dL [employer] Phone: Calcium [Mass/Vol] 8.8 mg/dL 8.6 - 10. 4 mg/dL [employer] Phone: Chloride [Moles/Vol] 97 mmol/L Low 98 - 10 7 mmol/L [employer] Phone: CO2 [Moles/Vol] 21 mmol/L 20 - 31 mmol/L [employer] Phone: Creatinine [Mass/Vol] 3.49 mg/dL High 0.70 - 1.20 mg/dL [employer] Phone: Free PSA/Total PSA [Mass fraction] 7.9 g/dL 6.4 - 8.3 g/dL [employer] Phone: GFR 21 mL/min Low >60 [employer] Phone: GFR Non- 17 mL/min Low >60 [employer] Phone: Glucose [Mass/Vol] 331 mg/dL High 70 - 99 mg/dL [employer] Phone: Interpretation and review of laboratory results Abnormal [employer] Phone: Potassium [Moles/Vol] 4.5 mmol/L 3.7 - 5.3 mmol/L [employer] Phone: Sodium [Moles/Vol] 131 mmol/L Low 135 - 144 mmol/L [employer] Phone: Urea nitrogen (BldV) [Mass/Vol] 69 mg/dL High 8 - 23 mg/dL [employer] Phone: Urea nitrogen/Creatinine (Bld) [Mass ratio] 20 [employer] Phone: [employer] Phone: Creatinine, Random UrineOrde red By: Tracey Sepulveda on 01-19-2021 Creatinine, Ur 62.4 mg/dL 39.0 - 259.0 mg/dL [employer] Phone: [employer] Phone: Laboratory - Chemistry and C hemistry - challengeOrdered By: Tracey Sepulveda on 01-19-2021 GFR/1.73 sq M.predicted MDRD (S/P/Bld) [Vol rate/Area] [employer] Phone: Comment on above: Average GFR for 70 o r more years old: 75 mL/min/1.73sq m Chronic Kidney Disease: <60 mL/min/1.73sq m Kidney failure: <15 mL/min/1.73sq m eGFR calculated using average adult body mass. Additional eGFR calculator available at: http://www.Trochet.Hyperink/multiple_crcl_2012.htm Stage 1: Some kidney damage normal GFR Stage 2: Mild kidney damage GFR 60-89 Stage 3: Moderate kidney damage GFR 30-59 Stage 4: Severe kidney damage GFR 15-29 Stage 5: Severe kidney damage GFR <15 ESRD - chronic treatment by dialysis or transplant No Panel InformationOrdered By: Tracey Sepulveda on 01-19-2021 [facility] [employer] Work Phone: Protein, urine, randomOrdere d By: Tracey Sepulveda on 01-19-2021 Protein (U) [Mass/Vol] 52 mg/dL [facility] Work Phone: Comment on above: No normal range esta blished. [facility] [employer] Work Phone: Urinalysis, Chem onlyOrdered By: Tracey Sepulveda on 01-19-2021 Bilirubin Urine Negative NEGATIVE [facility] Work Phone: Color, UA YELLOW YELLOW [facility] [employer] Work Phone: Glucose, Ur Negative NEGATIVE [facility] Work Phone: Interpretation and review of laboratory results Abnormal [facility] [employer] Work Phone: Ketones Ql (U) Negative NEGATIVE [facility] Work Phone: Leukocyte esterase Test strip Ql (U) Negative NEGATIVE [facility] [employer] Work Phone: Nitrite, Urine Negative NEGATIVE [facility] Work Phone: pH, UA 5.5 [facility] [employer] Work Phone: Protein, UA 1+ Abnormal NEGATIVE [facility] Work Phone: Specific [place], UA 1.015 [facility] [employer] Work Phone: Turbidity UA CLEAR CLEAR [facility] Work Phone: Urinalysis Comments NOT REPORTED [facility] [employer] Work Phone: Urine Hgb Negative NEGATIVE [facility] [employer] Work Phone: Urobilinogen, Urine Normal Normal [facility] [employer] Work Phone: [facility] Work Phone: Vitamin D 25 HydroxyOrdered By: Tracey Sepulveda on 01-19-2021 Interpretation and review of laboratory results Abnormal [facility] [employer] Work Phone: Vit D, 25-Hydroxy 28.3 ng/mL Low 30.0 - 100 .0 ng/mL [facility] [employer] Work Phone: Comment on above: Reference Range: Vitamin D status Range Deficiency <20 ng/mL Mild Deficiency 20-30 ng/mL Sufficiency 30-100 ng/mL Toxicity >100 ng/mL [facility] Work Phone: Microscopic UrinalysisOrdere d By: Tracey Sepulveda on 01-13-2021 - [facility] Work Phone: Amorphous, UA NOT REPORTED None [facility] Work Phone: Bacteria, UA 4+ Abnormal None [facility] Work Phone: Casts UA NOT REPORTED /LPF [facility] Work Phone: Crystals, UA NOT REPORTED None /HPF [facility] Work Phone: Epithelial Cells UA 2 TO 5 [facility] Work Phone: Interpretation and review of laboratory results Abnormal [facility] Work Phone: Mucus, UA NOT REPORTED None [facility] Work Phone: Other Observations UA NOT REPORTED NOT REQ. M [facility] Work Phone: RBC, UA 20 TO 50 [facility] Work Phone: Renal Epithelial, UA NOT REPORTED 0 /HPF [facility] Work Phone: Trichomonas, UA NOT REPORTED None [facility] Work Phone: WBC, UA GREATER THAN 100 [facility] Work Phone: Yeast, UA NOT REPORTED None [facility] Work Phone: [facility] Work Phone: Urinalysis Reflex to Culture Ordered By: Tracey Sepulveda on 01-13-2021 Bilirubin Urine Negative NEGATIVE [facility] Work Phone: Color, UA YELLOW YELLOW [facility] [employer] Work Phone: Glucose, Ur Negative NEGATIVE [facility] [employer] Work Phone: Interpretation and review of laboratory results Abnormal [facility] [employer] Work Phone: Ketones Ql (U) Negative NEGATIVE [facility] Work Phone: Leukocyte esterase Test strip Ql (U) LARGE Abnormal NEGATIVE [facility] [employer] Work Phone: Nitrite, Urine Negative NEGATIVE [facility] Work Phone: pH, UA 6.0 [facility] [employer] Work Phone: Protein, UA 2+ Abnormal NEGATIVE [facility] [employer] Work Phone: Specific [place], UA 1.020 [facility] [employer] Work Phone: Turbidity UA CLOUDY Abnormal CLEAR [facility] [employer] Work Phone: Urinalysis Comments NOT REPORTED [facility] [employer] Work Phone: Urine Hgb 3+ Abnormal NEGATIVE [facility] [employer] Work Phone: Urobilinogen, Urine Normal Normal [facility] [employer] Work Phone: [facility] [employer] Work Phone: Comprehensive Metabolic Pane [facility] 06-17-2019 Albumin [Mass/Vol] 3.2 g/dL Low 3.5 - 5.2 g/dL [place] Albumin/Globulin [Mass ratio] 0.8 {ratio} Low [place] ALP [Catalytic activity/Vol] 109 U/L 40 - 129 U/L [place] ALT [Catalytic activity/Vol] 12 U/L 5 - 41 U/L [place] Anion gap [Moles/Vol] 10 mmol/L 9 - 17 mmol/L [place] AST [Catalytic activity/Vol] 13 U/L <40 [place] Bilirubin Ql (U) 0.37 mg/dL 0.3 - 1.2 mg/dL [place] Bun/Cre Ratio 15 [place] Calcium [Mass/Vol] 8.8 mg/dL 8.6 - 10. 4 mg/dL [place] Chloride [Moles/Vol] 97 mmol/L Low 98 - 10 7 mmol/L [place] CO2 [Moles/Vol] 26 mmol/L 20 - 31 mmol/L [place] Creatinine [Mass/Vol] 1.58 mg/dL High 0.7 - 1.2 mg/dL [place] GFR 52 mL/min Low >60 [place] GFR Non- 43 mL/min Low >60 [place] Glucose [Mass/Vol] 163 mg/dL High 70 - 99 mg/dL [place] Potassium [Moles/Vol] 4.4 mmol/L 3.7 - 5.3 mmol/L [place] Protein [Mass/Vol] 7.1 g/dL 6.4 - 8.3 g/dL [place] Sodium [Moles/Vol] 133 mmol/L Low 135 - 144 mmol/L [place] Urea nitrogen [Mass/Vol] 23 mg/dL 8 - 23 mg/dL [place] Lipid Panelon 06-17-2019 Cholesterol [Mass/Vol] 76 mg/dL <200 [place] Comment on above: Cholesterol Guidelines: <200 Desirable 200-240 Borderline >240 Undesirable Cholesterol in HDL [Mass/Vol] 28 mg/dL Low >40 [place] Comment on above: HDL Guidelines: <40 Undesirable 40-59 Borderline >59 Desirable Cholesterol in LDL [Mass/Vol] 25 mg/dL 0 - 130 mg/dL [place] Comment on above: LDL Guidelines: <100 Desirable 100-129 Near to/above Desirable 130-159 Borderline >159 Undesirable Direct (measured) LDL and calculated LDL are not interchangeable tests. Cholesterol in VLDL [Mass/Vol] NOT REPORTED 1 - 30 mg/dL [place] Cholesterol.total/Blanche sterol in HDL [Mass ratio] 2.7 {ratio} <5 [place] Triglyceride [Mass/Vol] 114 mg/dL <150 M [place], [place] Comment on above: Triglyceride Guidelines: <150 Desirable 150-199 Borderline 200-499 High >499 Very high Based on AHA Guidelines for fasting triglyceride, April 2012. Metabolic Panelon 06-17-2019 GFR/1.73 sq M predicted among non-blacks MDRD (S/P/Bld) [Vol rate/Area] [place] Comment on above: Average GFR for 70 o r more years old: 75 mL/min/1.73sq m Chronic Kidney Disease: <60 mL/min/1.73sq m Kidney failure: <15 mL/min/1.73sq m eGFR calculated using average adult body mass. Additional eGFR calculator available at: http://www.velingo/multiple_crcl_2011.htm Stage 1: Some kidney damage normal GFR Stage 2: Mild kidney damage GFR 60-89 Stage 3: Moderate kidney damage GFR 30-59 Stage 4: Severe kidney damage GFR 15-29 Stage 5: Severe kidney damage GFR <15 ESRD - chronic treatment by dialysis or transplant Microalbumin, Uron 9 Albumin/Creatinine DL <= 20 mg/L (24H U) [Mass ratio] 3804 mg/L High <21 [place] Albumin/Creatinine DL <= 20 mg/L (U) [Ratio] 2822 High <17 mcg/mg creat [place] Creatinine [Mass/Vol] 134.8 mg/dL 39 - 2 59 mg/dL [place] Interpretation and review of laboratory results Abnormal [place] Otheron 06-17-2019 Interpretation and review of laboratory results Abnormal [place] T4, Freeon 06-17-2019 Thyroxine, Free 1.34 ng/dL 0.93 - 1.7 ng/dL [place] TSH without Reflexon 019 TSH Qn 0.87 m[IU]/L [employer], [place] Vitamin B12on 06-17-2019 Cobalamin (Vitamin B12) [Mass/Vol] 477 pg/mL 232 - 1245 pg/mL [place] Vitamin D 25 Hydroxyon 06-17 Interpretation and review of laboratory results Abnormal [facility] [place], [place] Vit D, 25-Hydroxy 9.6 ng/mL Low 30 - 100 ng/mL [facility] [place], [place] Comment on above: Reference Range: Vitamin D status Range Deficiency <20 ng/mL Mild Deficiency 20-30 ng/mL Sufficiency 30-100 ng/mL Toxicity >100 ng/mL Encounters Encounter Date Encounter Type Care Provider Facility Start: 08-12-2023 End: 08-12-2023 ambulatory [facility] Start: 07-30-2023 Orders Only Debbie Fish APRN-KAITY [facility] Start: 04-23-2023 End: 04-23-2023 ambulatory [facility] Start: 01-29-2023 End: 01-29-2023 ambulatory [facility] Start: 01-29-2023 End: 01-29-2023 Encounter for general adult medical examination without abnormal findings [facility] Start: 2022 End: 2022 ambulatory [facility] Start: 10-14-2022 End: 10-14-2022 ambulatory [facility] Start: 09-23-2022 End: 09-24-2022 ambulatory [facility] Start: 09-23-2022 End: 09-23-2022 Subsequent hospital visit by physician Tracey Sepulveda DO Work Phone: [facility] Start: 09-16-2022 End: 09-17-2022 ambulatory MANJULA SOMMERS REBE[facility] Start: 09-16-2022 End: 09-16-2022 Subsequent hospital visit by physician Tracey Sepulveda DO Work Phone: [facility] [facility] Start: 09-09-2022 End: 09-10-2022 ambulatory [facility] Start: 09-09-2022 End: 09-09-2022 Subsequent hospital visit by physician Tracey Hejeebu DO Work Phone: [facility] Start: 08-27-2022 End: 08-31-2022 Evaluation and management of inpatient TRACEY SEPULVEDA [facility] Start: 07-27-2022 End: 07-28-2022 ambulatory CHRIS RUELAS Facility:[facility] Start: 04-16-2022 End: 04-17-2022 ambulatory MARU SADLER Facility:[facility] Start: 09-28-2021 End: 09-29-[address] DOCTOR VEGA Facility:[facility] Start: 06-01-2021 End: 06-25-2021 ambulatory TRACEY MANDOKRUPA Facility:[facility] Start: 05-08-2021 End: 05-08-2021 Subsequent hospital visit by physician Tracey Sepulveda DO Work Phone: [facility] Start: 04-23-2021 End: 04-24-2021 ambulatory TRACEY CARBONEEDDAKRUPA Facility:[facility] Start: 02-07-2021 End: 02-07-2021 Subsequent hospital visit by physician Tracey Sepulveda DO Work Phone: [facility] Start: 01-19-2021 End: 01-19-2021 Subsequent hospital visit by physician Tracey Sepulveda DO Work Phone: [facility] Start: 01-13-2021 End: 01-13-2021 Subsequent hospital visit by physician Tracey Sepulveda DO Work Phone: [facility] Start: 06-17-2019 End: 06-17-2019 Subsequent hospital visit by physician Tracey Sepulveda [facility] Procedures Date Procedure Procedure Detail Performing [...] Phone: Start: 06-17-2019 Urine albumin quantitative Chris Kelley Work Phone: Plan of Treatment Date Care Activity Detail Author Start: 06-18-2024 Adult BMI Screening Adult BMI Screen ing [facility] Start: 06-18-2024 Tobacco Screening Tobacco Screening [facility] Start: 12-22-2023 End: 12-22-2023 Patient encounter procedure 12/22/2023 2:45 PM EDT Office Visit [facility] [address] [place] [address] Chris Guevara MD [address] [place] [address] [facility] Start: 09-17-2023 End: 09-17-2023 Patient encounter procedure 09/17/2023 2:00 PM EST Office Visit [facility] [address] [place] [address] Debbie Fish, PUBLIC AFFAIRS DIRECTOR-BORE MILL OPERATOR FOR [employer] [address] [place] [address] [facility] Start: 07-27-2023 Lipid panel Lipids [facility] Start: 03-14-2023 COVID-19 Vaccine ( season) COVID-19 Vaccine ( season) [facility] Start: 03-14-2023 Influenza vaccination Influenza Vacc ine [facility] Start: 09-19-2022 End: 09-19-2022 Patient encounter procedure 09/19/2022 [facility] Start: 02-11-2022 Influenza vaccination Flu vaccine (# 1) [facility] Start: 02-07-2022 [facility] Start: 02-07-2022 Potassium monitoring Potassium monit [facility] Work Phone: Start: 01-19-2022 Creatinine measurement Creatinine mo [facility] Work Phone: Start: 01-19-2022 Potassium monitoring Potassium monit [facility] Work Phone: Start: 09-10-2021 COVID-19 Vaccine (3 - Booster for Pfizer series) COVID-19 Vaccine (3 - Booster for Pfizer series) [facility] Start: 03-14-2021 Influenza vaccination Flu vaccine (# 1) [facility] [employer] Phone: Start: 02-04-2021 Annual Wellness Visi t (AWV) Annual Wellness Visit (AWV) [facility] Start: 06-17-2020 Creatinine [facility]: Start: 06-17-2020 Creatinine monitoring Creatinine mon itoring [place], [place] Start: 06-17-2020 Lipid panel Lipid screen [facility] Work Phone: Start: 06-17-2020 Potassium monitoring Potassium monit [place], [place] Start: 03-14-2019 Influenza vaccination Flu vaccine (# 1) [place] Start: 2009 Fall Risk Screening Fall Risk Screen ing [facility] Start: 2009 Pneumococcal 65+ yea rs Vaccine (1 of 1 - PPSV23) Pneumococcal 65+ years Vaccine (1 of 1 - PPSV23) [place] Start: 1994 Administration of varicella zoster vaccine Zoster (Shingles) Vaccine (1 of 2) [facility] Start: 1994 Shingles Vaccine (1 of 2) Shingles Vaccine (1 of 2) [facility] [employer] Phone: Start: 10-18-1963 DTaP,Tdap and Td Vaccines (1 - Tdap) DTaP,Tdap and Td Vaccines (1 - Tdap) [employer] Start: 10-18-1963 DTaP/Tdap/Td vaccine (1 - Tdap) DTaP/Tdap/Td vaccine (1 - Tdap) [employer] Start: 10-18-1963 Shingles vaccine (1 of 2) Shingles vaccine (1 of 2) [facility] [employer] Start: 1956 COVID-19 Vaccine (1) COVID-19 Vaccin e (1) [employer] Phone: Start: 1956 Depression Screen Depression Screen [facility] [employer] Start: 1956 Depression Screening Depression Scre ening [employer] Start: 1944 Hepatitis C screening Hepatitis C sc reen [employer] Phone: Start: 1945 Medicare Annual Wellness Visit Medicare Annual Wellness Visit [employer] End: 01-19-2021 GERDA profile GERDA profile Lab Routine Once for 1 Occurrences starting 01/19/2021 until 01/19/2021 [employer] Phone: Comment on above: Once for 1 Occurrenc es starting 01/19/2021 until 01/19/2021 GERDA profile GERDA profile Lab Routine 01/19/2021 4:00 PM EDT [employer] Phone: End: 01-13-2021 Culture, Urine Culture, Urine Microbiology Routine Once for 1 Occurrences starting 01/13/2021 until 01/13/2021 [employer] Phone: Comment on above: Once for 1 Occurrenc es starting 01/13/2021 until 01/13/2021 Culture, Urine [employer] Phone: End: 05-08-2021 Culture, Urine Culture, Urine Microbiology Routine Once for 1 Occurrences starting 05/08/2021 until 05/08/2021 [employer] Phone: Comment on above: Once for 1 Occurrenc es starting 05/08/2021 until 05/08/2021 End: 01-19-2021 Hepatitis B Core Antibody, Total Hepatitis B Core Antibody, Total Lab Routine Once for 1 Occurrences starting 01/19/2021 until 01/19/2021 [employer] Phone: Comment on above: Once for 1 Occurrenc es starting 01/19/2021 until 01/19/2021 Hepatitis B Core Antibody, Total Hepatitis B Core Antibody, Total Lab Routine 01/19/2021 4:00 PM EDT [employer] Phone: End: 01-19-2021 Hepatitis C Antibody Hepatitis C Antibody Lab Routine Once for 1 Occurrences starting 01/19/2021 until 01/19/2021 [employer] Phone: Comment on above: Once for 1 Occurrenc es starting 01/19/2021 until 01/19/2021 Hepatitis C Antibody Hepatitis C Antibody Lab Routine 01/19/2021 4:00 PM [employer] Phone: End: 01-19-2021 Immunofixation serum profile Immunofixation serum profile Lab Routine Once for 1 Occurrences starting 01/19/2021 until 01/19/2021 [employer] Phone: Comment on above: Once for 1 Occurrenc es starting 01/19/2021 until 01/19/2021 Immunofixation serum profile Immunofixation serum profile Lab Routine 01/19/2021 4:26 PM [employer] Phone: End: 01-19-2021 [place]/Lambda Free Lt Chains, Serum Quant [place]/[employer] Chains, Serum Quant Lab Routine Once for 1 Occurrences starting 01/19/2021 until 01/19/2021 [employer] Phone: Comment on above: Once for 1 Occurrenc es starting 01/19/2021 until 01/19/2021 [place]/Lambda Free Lt Chains, Serum Quant [place]/[employer] Chains, Serum Quant Lab Routine 01/19/2021 4:00 PM [employer] Phone: Protein Electrophoresis, Urine Protein Electrophoresis, Urine Lab Routine 01/19/2021 4:00 PM [employer] Phone: End: 01-19-2021 PTH, Intact PTH, Intact Lab Routine Once for 1 Occurrences starting 01/19/2021 until 01/19/2021 [employer] Phone: Comment on above: Once for 1 Occurrenc es starting 01/19/2021 until 01/19/2021 PTH, Intact PTH, Intact Lab Routine 01/19/2021 4:00 PM EDT [employer] Phone: End: 01-19-2021 Vitamin D 1,25 Dihydroxy Vitamin D 1,25 Dihydroxy Lab Routine Once for 1 Occurrences starting 01/19/2021 until 01/19/2021 [employer] Phone: Comment on above: Once for 1 Occurrenc es starting 01/19/2021 until 01/19/2021 Vitamin D 1,25 Dihydroxy Vitamin D 1,25 Dihydroxy Lab Routine 01/19/2021 4:00 PM EDT [employer] Phone: Immunizations Immunization Date Immunization Notes Care Provider [facility] 08-12-2019 influenza virus vaccine, unspecified formulation Debbie Fish [facility] Phone: [facility] Payers Date Payer Category Payer Unknown [id number] 2017 Medicare MEDICARE MEDICAR E PART A AND B xxxxxxxxxx 2017-Present [phone] [address] [address] [place] [address] xxxxxxxxxx [id number] 2017 Private Health Insurance [employer] xxxxxxxx 2017-Present [phone] [address] [place] [address] xxxxxxxx [id number] 2017 Private Health Insurance [id number] 2010 Medicare MEDICARE MEDICAR E PART A & B [id number] 2010-Present [phone] [address] [place] [address] [id number] 1959 Medicare [id number] 1959 Private Health Insurance [id number] 1944 Unknown [id number] 1944 Unknown [id number] 1944 Unknown [id number] 1944 Unknown [id number] 1944 Unknown [id number] 1944 Unknown [id number] 1944 Unknown [id number] 1944 Unknown [id number] 1944 Unknown [id number] 1944 Unknown [id number] Unknown COMMERCIAL [employer]ME RCIAL - GENERIC PLAN [id number] Effective for all dates [address] [place] [address] [id number] Social History Date Type Detail Facility Start: 05-09-2014 End: 10-15-2022 Tobacco smoking status NHIS Never smoker [facility] [employer] Start: 05-09-2014 End: 09-19-2022 Alcohol intake Current non-drinker of alcohol (finding) [place], [place] Start: 1945 Sex Assigned At Not on file M [place] Start: 08-27-2022 History SDOH Alcohol Std Drinks 0 [facility] [employer] Work Phone: Start: 08-17-2022 End: 08-27-2022 Exposure to SARS-CoV-2 (event) Not sure [facility] [employer] Start: 10-15-2022 Tobacco use and exposure Smoke less tobacco [facility]-user [facility] Start: 06-18-2023 Alcohol intake Lifetime [facility]rade [facility]finding) [facility] Start: 12-23-2018 End: 06-18-2023 History of Social function [facility] Start: 12-23-2018 End: 06-18-2023 Tobacco use panel [facility] Housing Instability Unknown [facility] [facility] Medical Equipment Procedure Code Equipment Code Equipment Origin al Text Equipment Identifier Dates Once daily [id number] Start: 04-16-2023 Progress note 08-12-2023 Note Date & Type Note Facility 08-12-2023 Note Subjective Patient ID: Bertha Pulido is a 77 y.o. male who presents for Follow-up (HTN Follow up , Abdominal pain x's 2 yrs. ). Bertha is a very pleasant 77-year-old male who comes in today for follow-up visit. 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 I could not find labs. He had some labs done for endocrinology in July. He got some from [facility] but I could only see a few of the labs. I am not really sure if he had a renal function. I do not see an A1c either..Today his blood pressure has been significantly elevated. He states that his beta-kamille has been cut in half. He also takes only 5 mg and Norvasc. Otherwise he has been feeling well. He did not have any other significant problems other than his persistent abdominal hernia. He states that he has what he feels like a hernia in his right groin. He did not go see Dr. Hammonds as he wanted to see another provider. His last experience was not optimal with him. He did not have any other significant problems. Review of Systems Constitutional: No fevers/Chills, no recent weight gain or weight loss. No fatigue. Eyes: No visual changes or diplopia. ENT: No Headaches, hearing loss or vertigo. Cardiovascular: Denied chest Pain, orthopnea, PND Respiratory: No cough or wheezing, no sputum production. No hematemesis. Gastrointestinal: No abdominal pain, No Nausea, Vomiting, Constipation, Diarrhea Genitourinary: No dysuria, or hematuria. Musculoskeletal: No gait disturbance, weakness or joint complaints. Integumentary: No rash or pruritis. Neurological: No Headache, No Hx CVA/TIA Psychiatric: No anxiety, or depression. Endocrine: No temperature intolerance. Hematologic/Lymphatic: No abnormal bruising or bleeding Objective Physical Exam VITALS: BP 167/73 Pulse (!) 44 Temp 36.2 ???C (97.1 ???F) (Tympanic) Resp 20 Ht 1.727 m (5' 8 ) Wt 74.5 kg (164 lb 3.2 oz) SpO2 99% BMI 24.97 kg/m??? General: alert and oriented x3, No acute distress HEENT: PERRLA,,No lymphadenopathy, normal appearance of eyes, ears, nose, trachea midline.Throat is clear. Neck was supple. Cardiovascular: Regular rate and rhythm normal S1-S2 no S3 or S4 auscultated, no murmur, no edema Pulmonary: Clear to auscultation without rales rhonchi wheezes,Good respiratory effort Abdominal: soft, non-tender, non-distended, +BS, no hernias Neurologic: Cranial nerves II through XII are grossly intact, no overt deficits Extremities: No edema noted. Skin: No rashes, erythema, or bruising Lymph: No enlarged Lymph nodes Psychiatric: normal affect, normal mentation Lab Results Component Value Date TSH 0.68 06/20/2021 No results found for: EXTCMP , EXTCBC , LASAP , BMPR1A Lab Results Component Value Date CHOL 70 (L) 01/04/2021 TRIG 54 01/04/2021 HDL 31 01/04/2021 LDL 28 01/04/2021 LDL 39 01/04/2021 MICROALBCREA 1,170.5 (H) 04/13/2020 No visits with results within 3 Month(s) from this visit. Latest known visit with results is: [facility] Encounter on 11/21/2021 Component Date Value Ref Range Status Ferritin 11/21/2021 157 24 - 336 ng/mL Final Assessment/Plan Diagnoses and all orders for this visit: Chronic diastolic heart failure (CMS/HCC) Paroxysmal atrial fibrillation (CMS/HCC) Primary hypertension - amLODIPine (Norvasc) 10 mg tablet; Take 1 tablet (10 mg) by mouth in the morning. Stage 4 chronic kidney disease (CMS/HCC) - Comprehensive metabolic panel; Future - amLODIPine (Norvasc) 10 mg tablet; Take 1 tablet (10 mg) by mouth in the morning. Type 2 diabetes mellitus with stage 4 chronic kidney disease, without long-term current use of insulin (CMS/HCC) - Hemoglobin A1c; Future Hernia of abdominal cavity - Ambulatory referral to General Surgery; Future Diagnosis Plan 1. Chronic diastolic heart failure (CMS/HCC) 2. Paroxysmal atrial fibrillation (CMS/HCC) 3. Primary hypertension amLODIPine (Norvasc) 10 mg tablet 4. Stage 4 chronic kidney disease (CMS/HCC) Comprehensive metabolic panel amLODIPine (Norvasc) 10 mg tablet 5. Type 2 diabetes mellitus with stage 4 chronic kidney disease, without long-term current use of insulin (CMS/HCC) Hemoglobin A1c 6. Hernia of abdominal cavity Ambulatory referral to General Surgery Orders Placed This Encounter Procedures Comprehensive metabolic panel Standing Status: Future Standing Expiration Date: 08/12/2024 Order Specific Question: Release to Patient Answer: Immediately Hemoglobin A1c Standing Status: Future Standing Expiration Date: 08/12/2024 Order Specific Question: Release to Patient Answer: Immediately Ambulatory referral to General Surgery Standing Status: Future Standing Expiration Date: 02/10/2024 Referral Priority: Routine Referral Type: Consultation Referral Reason: Specialty Services Required Requested Specialty: General Surgery Number of Visits Requested: 1 Follow up in about 4 weeks (more content not included)... [facility] Progress note 04-23-2023 Note Date & Type Note Facility 04-23-2023 Note Cardiovascular Medic ine [facility] SUBJECTIVE Chief Complaint Patient presents with [...] in January, oldest is 2. Live in [place]. Patient Active Problem List Diagnosis Hypertension Benign [...] disease Deep vein thrombosis (CMS/HCC) Diabetes mellitus (CMS/HCC) Heart disease Hyperlipidemia Hypertension Family History Family [...] present. Comments: +1BL (more content not included)... [facility] Progress note 04-23-2023 Note Date & Type Note Facility 04-23-2023 Note Patient here for 6 m o follow up PAD, chronic diastolic heart failure, hypertension, and CAD. Had routine amiodarone monitoring labs recently. Denies chest pain, SOB, and bleeding on Eliquis. Review of Systems Cardiovascular: Positive for leg swelling. All other systems reviewed and are negative. [facility] Progress note 01-29-2023 Note Date & Type [...] BURNETT on 02/02/23 at 8:23 PM. ------ [facility] Annual Medicare Wellness visit Subjective Chief Complaint: Chief Complaint Patient presents with [facility] follow up, 3 month check up. Bertha Pulido is an 77 y.o. male with history of htn, heart failure, CAD, hld, Stage 4 CKD, T2DM, who is here for Annual Wellness Visit. Comprehensive History: Patient Active Problem List Diagnosis Hypertension Benign prostatic hyperplasia Bilateral cataracts Coronary atherosclerosis Chronic diastolic heart failure ([facility]) Diverticulum of bladder Hyperlipidemia Kidney stone Preinfarction syndrome ([facility]) Sleep disorder Spondylolysis of cervical spine Stage 3 chronic kidney disease ([facility]/HCC) Type 2 diabetes mellitus with stage 3b chronic kidney disease ([facility]) Vitamin D deficiency Iron deficiency anemia Atrial fibrillation ([facility]/HCC) Stage 4 chronic kidney disease ([facility]/HCC) Hypertensive chronic kidney disease with stage 1 through stage 4 chronic kidney disease, or unspecified chronic kidney disease Edema of extremities Monoclonal gammopathy Moderate malnutrition ([facility]/HCC) History of cardiovascular disorder Proteinuria Shoulder pain Urinary tract infectious disease Past Medical History: Diagnosis Date Atrial fibrillation ([facility]) Chronic kidney disease Coronary artery disease Deep vein thrombosis ([facility]) Diabetes mellitus ([facility]) Heart disease Hyperlipidemia Hypertension Past Surgical History: [...] file Stress: No Stress Concern Present (10/14/2022) [employer] - Occupational Stress Questionnaire Feeling of Stress : Not at all Social Connections: Unknown (10/14/2022) Social Connection and Isolation Panel [NHANES] Frequency of Communication with Friends and Family: Not on file Frequency of Social Gatherings with Friends and Family: Not on file Attends Restorationism Services: Not on file Active Member of [...] amlodipine-atorvastatin (Caduet) 1 (more content not included)... [facility] Progress note 2022 Note Date & Type Note Facility 2022 Note Cardiovascular Medic ine [facility] SUBJECTIVE Chief Complaint Patient presents with [...] cataracts Coronary atherosclerosis Chronic diastolic heart failure ([facility]/HCC) Diverticulum of bladder Hyperlipidemia Kidney stone Preinfarction syndrome ([facility]) Sleep disorder Spondylolysis of cervical spine Stage 3 chronic kidney disease ([facility]) Type 2 diabetes mellitus with stage 3b chronic kidney disease ([facility]) Vitamin D deficiency Iron deficiency anemia Atrial fibrillation ([facility]) Stage 4 chronic kidney disease ([facility]) Hypertensive chronic kidney disease with stage 1 through stage 4 chronic kidney disease, or unspecified chronic kidney disease Edema of extremities Monoclonal gammopathy Moderate malnutrition ([facility]) Past Medical History: Diagnosis Date Atrial fibrillation ([facility]) Chronic kidney disease Coronary artery disease Deep vein thrombosis ([facility] Diabetes mellitus ([facility]) Heart disease Hyperlipidemia Hypertension Family History [...] Ref Range Status (more content not included)... [facility] Progress note 2022 Note Date & Type Note Facility 2022 Note Review of Systems All other systems reviewed and are negative. [facility] Progress note 10-14-2022 Note Date & Type [...] he would like his primary care in [place] to make that referral. I will defer this to them. Patient did decide that he would like to do skilled therapy. Incidentally he did test positive for COVID-19 but is asymptomatic. Plan will be to discharge to [facility] long[facility] tomorrow morning. Consultants: Dr. Carreon, Gen Surgery; [...] of bladder Hyperlipidemia Kidney stone Preinfarction syndrome ([facility]/HCC) Sleep disorder Spondylolysis of cervical spine Stage 3 chronic kidney disease (CMS/HCC) Type 2 diabetes mellitus with stage 3b chronic kidney disease (CMS/HCC) Vitamin D deficiency Iron deficiency anemia Atrial fibrillation (CMS/HCC) Stage 4 chronic kidney disease ([facility]/HCC) Hype (more content not included)... [facility] Progress note 09-26-2022 Note Date & Type Note Facility 09-26-2022 Note Transition of Care [facility] Date of Admission: 08/27/2022 Date of [...] Hospital follow-up appointment confirmed. AZEEM call complete. [facility] Instructions Note Date & Type Note Facility Instructions Not on filedocumented in this en counter [facility] Advance Directives No Advanced Directives Records FoundDocuments on File Type Date Recorded Patient Manager Package Expl anation Advance Directives and Living Will Power of Separating Machine Operator Documents on File Type Date Recorded Patient Manager Package Expl anation ACP-Advance Directive ACP-Power of Separating Machine Operator Latest Code Status on File Code Status [...] section and content) DATE CREATED AUTHOR 08/24/2021 [facility] DATE CREATED AUTHOR AUTHOR'S ORGANIZ ATION 03/08/2022 [facility] DATE CREATED AUTHOR AUTHOR'S ORGANIZ ATION 07/30/2022 [facility] DATE CREATED AUTHOR AUTHOR'S ORGANIZ ATION 09/24/2022 [facility] DATE CREATED AUTHOR AUTHOR'S ORGANIZ ATION 08/13/2023 [facility] Care Teams (unrecognized sec tion and content) Cigar Head Puncher Relationship Specialty Start Date End Date Tracey Sepulveda, [address] [place], [place] [id number] PCP - General Internal Medicine 11/28/17 FOR [...] BE BASED ON THE PRIMARY CLINICAL RECORDS. [employer] [facility]. provides no warranty or guarantee of the accuracy or completeness of information in this document.
[2023-08-20 13:37] LABS: Alanine Aminotransferase 42 U/L (16-63); Albumin Globulin Ratio 0.6; Albumin Level 2.8 g/dL (3.4-5.0); Alkaline Phosphatase 145 U/L (46-116); Anion Gap 11.4; Aspartate Amino Transferase 28 U/L (15-37); Bilirubin Total 0.4 mg/dL (0.2-1.0); Calcium 8.4 mg/dL (8.5-10.1); Carbon Dioxide 28.9 mmol/L (21.0-32.0); Chloride 101 mmol/L (98-107); Estimated GFR (African America 22 (>=60); Estimated GFR (Non-African Ame 18 (>=60); Globulin 4.7 g/dL; Glucose 158 mg/dL (74-106); Potassium 4.3 mmol/L (3.5-5.1); Sodium 137 mmol/L (136-145); Total Protein 7.5 g/dL (6.4-8.2)
== END 2023-08-20 12:13 | disposition home or self-care (01) ==
LOC: LAB 12:17
DX: N18.4 Chronic kidney disease, stage 4 (severe) (principal)
CPT/HCPCS: 36415; 80053

== ENCOUNTER 2024-03-22 13:48 | Outpatient (OUT) | payer MEDICARE, OTHER, SELFPAY ==
[2024-03-22 14:40] LABS: Creatinine Urine Random 61.71 mg/dL (20.00-300.00); Protein Creatinine Ratio Urine 0.96; Total Protein Urine Random 59.2 mg/dL (<=11.9)
[2024-03-22 15:06] LABS: Anion Gap 8.8; BUN Creatinine Ratio 16.1; Calcium 8.7 mg/dL (8.5-10.1); Carbon Dioxide 32.6 mmol/L (21.0-32.0); Chloride 100 mmol/L (98-107); Estimated GFR (African America 25 (>=60); Estimated GFR (Non-African Ame 21 (>=60); Glucose 145 mg/dL (74-106); Magnesium 1.8 mg/dL (1.8-2.4); Phosphorus 3.9 mg/dL (2.6-4.7); Potassium 4.4 mmol/L (3.5-5.1); Sodium 137 mmol/L (136-145)
== END 2024-03-22 13:49 | disposition home or self-care (01) ==
LOC: LAB 13:50
PROVIDERS: Visit Provider Internal Medicine Nephrology
DX: N18.4 Chronic kidney disease, stage 4 (severe) (principal)
CPT/HCPCS: 36415; 80048; 82042; 82570; 83735; 84100; 84156

== ENCOUNTER 2024-07-16 11:56 | Outpatient (OUT) | payer MEDICARE, OTHER, SELFPAY ==
--- OUTSIDE RECORDS SUMMARY | 2024-07-16 12:03 | XMS_ITS | CCD ---
Author Organization [facility] Care Team Providers Care Library Supervisor Name Role Phone Tracey Cronin Primary Care Provider TRACEY CRONIN Referring Unavailable HUERTAS, MOHAMMAD H Admitting Unavailable HUERTAS, MOHAMMAD H Attending Unavailable HEEDDAEBPatrick, TRACEY Primary Care Unavailable HEJEEBU, TRACEY Referring Unavailable HUERTAS, MOHAMMAD H Attending Unavailable HUERTAS, MOHAMMAD H Admitting Unavailable HEJEEBU, TRACEY Primary Care Unavailable SURAJ, CHRIS Admitting Unavailable SURAJ, CHRIS Attending Unavailable MISC, DR GARSIA Primary Care Unavailable SURAJ, CHRIS Consulting Unavailable MISC, DR GARSIA Admitting Unavailable MISC, DR GARSIA Attending Unavailable MISC, DR GASRIA Consulting Unavailable ALI, MAHONEY Admitting Unavailable ALI, MAHONEY Attending Unavailable MISC, DR GARSIA Primary Care Unavailable ALI, MAHONEY Consulting Unavailable GAURAV, TIFF Admitting Unavailable GAURAVDORENEA Attending Unavailable DORENE NOLASCOA Consulting Unavailable Hejeebu Tracey FERRARI Primary Care Provider MANJULA STALEY Referring Unavailable HEJEEBU, TRACEY Primary Care Unavailable MANJULA STALEY Referring Unavailable HEJEEBU, TRACEY Primary Care Unavailable HEJEEBU, TRACEY Primary Care Unavailable WANDY PADRON Admitting Unavailable WANDY PADRON Attending Unavailable EDUARDO CARREON Consulting Unavailable JARRED BUENO Consulting Unavailable MANJULA STALEY Referring Unavailable HEJEEBU, TRACEY Primary Care Unavailable Unavailable Primary Care Provider Unavailabl e HUERTAS, MOHAMMAD SYLVIA Attending Unavaila ble HUERTAS, MOHAMMAD SYLVIA Referring Unavaila ble HEJEEBU, TRACEY K Primary Care Unavailable Alin Serrano Admitting Unavailable DEBBIE HARRINGTON Attending Unavailable SURAJ KELLEYCHRIS FREITAS M Attending Un available HEEDDAEBU, TRACEY K Primary Care Unavailable DEBBIE HARRINGTON Attending Unavailable HEEDDAEBU, TRACEY K Referring Unavailable HEJEEBU, TRACEY K Primary Care Unavailable Heeddaebu DO, Tracey K Primary Care Provider YONIS CASTILLO Attending Unavailable MATTHIEU RUIZ Attending Unavailable HEJEEBU, TRACEY Referring Unavailable HUERTAS, MOHAMMAD H. Attending Unavailable NOOKSACK, HERRERA Attending Unavailable HUERTAS, MOHAMMAD H. Attending Unavailable TIFF NOLASCO Attending Unavailable ALVAREZ, ABDUL Attending Unavailable HUERTAS, MOHAMMAD H. Referring Unavailable HEJEEBU, TRACEY Referring Unavailable MARIE ORTIZ Attending Unavailable NOOKSACK, HERRERA Attending Unavailable HUERTAS, MOHAMMAD H. Attending Unavailable HUERTAS, MOHAMMAD H. Referring Unavailable HEEDDAEBU, TRACEY Attending Unavailable NAGI BARBER Attending Unavailable HEJEEBU, TRACEY Attending Unavailable HEJEEBU, TRACEY Attending Unavailable Allergies Allergy Classification Reported Allergen(s) Allergy Type Date of Onset Reaction(s) Facility (1 source) 03084,00; Translations: [54104,00] Propensity to adverse reactions (disorder) 9 [facility] Medications Current Medications Medication Drug Class(es) Dates Sig (Normalized) Sig (Original) amiodarone hydrochloride 200 mg oral tablet (7 sources) Antiarrhythmic Start: 07-12-2022 take 1 tablet by mouth once daily at mealtime amiodarone (PACERONE) 200 mg tablet TAKE 1 TABLET BY MOUTH ONCE DAILY WITH MEALS 07/12/2022 Active amLODIPine 10 mg oral tablet (3 sources) Dihydropyridine Calcium Channel Kamille take 1 tablet by mouth once daily amLODIPine (NORVASC) 10 MG tablet Take 10 mg by mouth daily 0 Active amLODIPine 10 mg / atorvastatin 10 mg oral tablet (4 sources) Dihydropyridine Calcium Channel Kamille, HMG-CoA Reductase Inhibitor amLODIPine-atorv astatin (CADUET) 10-10 mg per tablet 1 tablet Active apixaban 5 mg oral tablet (7 sources) Factor Xa Inhibitor apixaban (ELIQUIS) 5 mg tablet See Admin Instructions. Active apixaban (ELIQUI S) 2.5 MG TABS tablet Take by mouth 2 times daily 0 Active Aspirin (10 sources) Platelet Aggregation Inhibitor, Nonsteroidal Anti-inflammatory Drug aspi rin 81 mg capsule 1 tablet Active aspirin 81 mg ca psule 1 tablet 0 Active take 1 tablet by mouth once jenni y aspirin 81 MG EC tablet Take 81 mg by mouth daily 0 Active take 1 tablet by mouth once jenni y aspirin 162 MG EC tablet Take 162 mg by mouth daily. 0 Active atorvastatin 20 mg oral tablet (12 sources) HMG-CoA Reductase Inhibitor atorvastatin (LIPITO R) 20 mg tablet 1 tablet Active ATORVASTATIN YUMI CIUM PO Take by mouth. 0 Active bumetanide 1 mg oral tablet (7 sources) Loop Diuretic take 2 tablets by mouth once daily bumetanide (BUMEX) 1 mg tablet Take 2 tablets (2 mg total) by mouth daily. Active cholecalciferol 0.05 mg oral capsule (7 sources) Vitamin D cholecalciferol, vitamin D3, 2,000 units capsule daily. Active Doxazosin (5 sources) alpha-Adrenergic Kamille DOXAZOSIN MESYLATE PO Take by mouth. 0 Active 0.5 ml dulaglutide 3 mg/ml auto-injector (3 sources) GLP-1 Receptor Agonist dulaglutide (TRULICITY) 1.5 MG/0.5ML SC injection Inject 1.5 mg into the skin once a week SUNDAYS 0 Active famotidine 10 mg oral tablet (3 sources) Histamine-2 Receptor Antagonist Start: 08-31-19 take 1 tablet by mouth once daily famotidine (PEPCID) 10 MG tablet Take 1 tablet by mouth daily 60 tablet 3 08/31/2022 Active glipiZIDE 10 mg oral tablet (13 sources) Sulfonylurea Start: 10-03-19 End: 10-16-19 24 take 1 tablet by mouth twice daily glipiZIDE (GLUCOTROL) 10 mg tablet Take 1 tablet by mouth twice daily 180 tablet 3 10/16/2023 Active take 10 mg by mouth twice daily GLIPIZIDE PO Take 10 mg by mouth 2 times daily 0 Active GLIPIZIDE PO Jordi e by mouth. 0 Active 3 ml insulin glargine 100 unt/ml pen injector (5 sources) Insulin Analog Start: 04-20-2024 LANTUS SOLOSTA R U-100 INSULIN 100 unit/mL (3 mL) insulin pen INJECT 15 UNITS SUBCUTANEOUSLY AT BEDTIME 15 mL 3 04/20/2024 Active Start: 04-16-2023 insulin glargi ne (BASAGLAR CASPEN U-100 INSULIN) 100 unit/mL (3 mL) insulin pen Take 15 units at bedtime 15 mL 12 04/16/2023 Active Start: 04-16-2023 End: 04-20-2024 insulin glargine (BASAGLAR K TRACYKPEN U-100 INSULIN) 100 unit/mL (3 mL) insulin pen Take 15 units at bedtime 15 mL 12 04/16/2023 04/20/2024 Discontinued Lisinopril (5 sources) Angiotensin Converting Enzyme Inhibitor LISINOPRIL PO Take b y mouth. 0 Active magnesium oxide 400 mg oral tablet (4 sources) magnesium oxide (MAGOX) 400 mg tablet daily. Active meloxicam 7.5 mg oral tablet (4 sources) Nonsteroidal Anti-inflammatory Drug meloxicam (MOBIC) 7.5 mg tablet daily. Active metFORMIN (5 sources) Biguanide METFORMIN HCL PO Take by mouth. 0 Active metoprolol tartrate 25 mg oral tablet (12 sources) beta-Adrenergic Kamille take 1 tablet by mouth in the morning, then take 1 tablet by mouth at bedtime metoprolol tartrate (LOPRESSOR) 25 mg tablet Take 1 tablet (25 mg total) by mouth in the morning and 1 tablet (25 mg total) before bedtime. Active take 50 mg by mouth at bedtime M ETOPROLOL TARTRATE PO Take 50 mg by mouth in the morning and at bedtime 0 Active METOPROLOL TARTR ATE PO Take by mouth. 0 Active omeprazole 20 mg delayed release oral tablet (5 sources) Proton Pump Inhibitor Omeprazole 20 MG TBE C Take by mouth. 0 Active polyethylene glycol 3350 33610 mg powder for oral solution (3 sources) Osmotic Laxative Start: 08-31-19 End: 10-01-19 23 take 17 g by mouth once daily polyethylene glycol (GLYCOLAX) 17 g packet Take 17 g by mouth daily 527 g 1 08/31/2022 09/30/2022 Active primidone 50 mg oral tablet (7 sources) Anti-epileptic Agent primidone (MYSOLINE) 50 mg tablet 1 tablet Active SITagliptin (5 sources) Dipeptidyl Peptidase 4 Inhibitor SitaGLIPtin Phosphat e (JANUVIA PO) Take by mouth. 0 Active tamsulosin hydrochloride 0.4 mg oral capsule (7 sources) alpha-Adrenergic Kamille Start: 08-30-19 take 1 capsule by mouth at bedtime tamsulosin (FLOMAX) 0.4 MG capsule Take 1 capsule by mouth in the morning and at bedtime 60 capsule 3 09/19/2022 Active TRULICITY 3 mg/0.5 mL pen injector (4 sources) Start: 11-12-19 TRULICITY 3 mg/0.5 mL pen injector Indications: Type 2 diabetes mellitus with hyperglycemia, without long-term current use of insulin ([facility]) inject 1 syringe subcutaneously once a week 6 mL 3 11/12/2023 Active Start: 06-18-2023 inject 3 mg by subcu taneous injection every week TRULICITY 3 mg/0.5 mL pen injector Indications: Type 2 diabetes mellitus with hyperglycemia, without long-term current use of insulin ([facility]) Inject 3 mg under the skin once a week. 6 mL 3 06/18/2023 Active Problems Active Problems Problem Classification Problem Date Documented Da te Episodic/Chronic Abdominal pain (8 sources) Intractable abdominal pain; Translations: [Unspecified abdominal pain] Onset: 08-27-2022 08-27-2022 Episodic Cardiac dysrhythmias (5 sources) Atrial fibrillation; Translations: [Unspecified atrial fibrillation] Onset: 04-03-2022 08-27-2022 Chronic Chronic kidney disease (13 sources) Chronic kidney disease, stage 4 (severe); Translations: [Chronic kidney disease, stage 2 (mild)] Onset: 10-03-2021 Chronic Congestive heart failure; nonhypertensive (2 sources) Chronic diastolic (congestive) heart failure; Translations: [Chronic diastolic (congestive) heart failure] Onset: 05-02-2022 Chronic Coronary atherosclerosis and other heart disease (4 sources) Atherosclerotic heart disease of [place] coronary artery without angina pectoris; 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] Onset: 06-28-2024 Chronic Coronary atherosclerosis and other heart disease (2 sources) Presence of aortocoronary bypass graft; Translations: [Presence of aortocoronary bypass graft] Onset: 06-28-2024 Episodic Diabetes mellitus with complications (14 sources) Type 2 diabetes mellitus with other specified complication; Translations: [Type 2 diabetes mellitus with diabetic chronic kidney disease] Onset: 09-28-2021 Chronic Diabetes mellitus without complication (5 sources) Diabetes mellitus; Translations: [Type 2 diabetes mellitus without complications] Onset: 08-27-2022 08-27-2022 Chronic Disorders of lipid metabolism (4 sources) Mixed hyperlipidemia; Translations: [Mixed hyperlipidemia] Onset: 04-16-2023 04-16-2023 Chronic Essential hypertension (7 sources) Hypertensive disorder; Translations: [Essential (primary) hypertension] Onset: 08-04-2022 08-27-2022 Chronic Genitourinary symptoms and ill-defined conditions (3 sources) Retention of urine; Translations: [Retention of urine, unspecified] Onset: 08-28-2022 08-28-2022 Episodic Neoplasms of unspecified nature or uncertain behavior (2 sources) Monoclonal gammopathy; Translations: [Monoclonal gammopathy] Onset: 05-02-2022 Chronic Nutritional deficiencies (5 sources) Malnutrition (calorie); Translations: [Moderate protein-calorie malnutrition] Onset: 08-28-2022 08-28-2022 Chronic Other aftercare (6 sources) Other group home (current) drug therapy; Translations: [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 CURRENT DRUG THERAPY] Onset: 07-27-2022 Episodic Other circulatory disease (2 sources) Personal history of transient ischemic attack (TIA), and cerebral infarction without residual deficits; Translations: [Personal history of transient ischemic attack (TIA), and cerebral infarction without residual deficits] Onset: 06-28-2024 Episodic Other nervous system disorders (3 sources) Other chronic pain; Translations: [Other chronic pain] Onset: 08-27-2022 Chronic Other non-traumatic joint disorders (1 source) Pain in left hip; Translations: [Pain in left hip] Onset: 08-27-2022 Episodic Phlebitis; thrombophlebitis and thromboembolism (2 sources) Chronic embolism and thrombosis of unspecified deep veins of unspecified lower extremity; Translations: [Chronic embolism and thrombosis of unspecified deep veins of unspecified lower extremity] Onset: 06-28-2024 Chronic Unclassified (2 sources) CDM FOLLOW UP. Onset: 09-03-2023 Past or Other Problems Problem Classification Problem Date Documented Da te Episodic/Chronic Abdominal hernia (2 sources) Unspecified abdominal hernia without obstruction or gangrene; Translations: [Unspecified abdominal hernia without obstruction or gangrene] Onset: 09-04-2023 Episodic Other diseases of kidney and ureters (3 sources) Disorder of kidney and ureter, unspecified; Translations: [Disorder of kidney and ureter, unspecified] Onset: 10-15-2023 Episodic Other non-traumatic joint disorders (2 sources) Pain in right shoulder; Translations: [Pain in right shoulder] Onset: 01-29-2023 Episodic Other screening for suspected conditions (not mental disorders or infectious disease) (2 sources) Other specified abnormal findings of blood chemistry; Translations: [Other specified abnormal findings of blood chemistry] Onset: 09-24-2023 Episodic Residual codes; unclassified (2 sources) Localized edema; Translations: [Localized edema] Onset: 03-31-2024 Episodic Sprains and strains (2 sources) Sprain of unspecified ligament of right ankle, initial encounter; Translations: [Sprain of unspecified ligament of right ankle, initial encounter] Onset: 02-03-2024 Episodic Results Test Name Value Interpretation Reference Range Facility Refillo 07-13-2024 Refill [id number] Bertha Xie 1945 M [facility] Provider Department Center 07/13/2024 TRACEY OROZCO [facility] Comprehensiv Family History Problem Relation Age of Onset Stroke Mother Heart attack Mother Prostate cancer Father Diabetes Father No Known Problems Sister Prostate cancer Brother Stomach cancer Paternal Grandfather Family Status - Relation Status Age at Mother Father Sister Brother Paternal Grandfather Reason for Visit and Comments: Med Refill [[id number]] [facility] 36on 07-12-2024 36 Patient is requestin g a medication refill Please advise [facility] Refillon 07-12-2024 Refill [id number] Bertha Xie 1945 M Date Provider Department Center 07/12/2024 TRACEY OROZCO [facility] Comprehensiv Family History Problem Relation Age of Onset Stroke Mother Heart attack Mother Prostate cancer Father Diabetes Father No Known Problems Sister Prostate cancer Brother Stomach cancer Paternal Grandfather Family Status - Relation Status Age at Mother Father Sister Brother Paternal Grandfather Reason for Visit and Comments: Med Refill [[id number]] [facility] Office Visiton 06-28-2024 Follow-up visit [id number] Bertha Xie 1945 M Date Provider Department Center 06/28/2024 MARIE VILLAFANA [facility] Family History Problem Relation Age of Onset Stroke Mother Heart attack Mother Prostate cancer Father Diabetes Father No Known Problems Sister Prostate cancer Brother Stomach cancer Paternal Grandfather Family Status - Relation Status Age at Mother Father Sister Brother Paternal Grandfather Level of Service:38612 [place] OFFICE/OUTPATIENT ESTABLISHED MOD MDM 30 MIN Normal [facility] Refillon 06-19-2024 Refill [id number] Bertha Xie 1945 M Date Provider Department Center 06/19/2024 TRACEY OROZCO [facility] MED Comprehensiv Family History Problem Relation Age of Onset Stroke Mother Heart attack Mother Prostate cancer Father Diabetes Father No Known Problems Sister Prostate cancer Brother Stomach cancer Paternal Grandfather Family Status - Relation Status Age at Mother Father Sister Brother Paternal Grandfather Reason for Visit and Comments: Med Refill [[id number]] [facility] Follow-Upon 06-01-2024 Follow-Up [id number] Bertha Xie Vipul 1945 M Date Provider Department Center 06/01/2024 TRACEY OROZCO [facility] Comprehensiv Family History Problem Relation Age of Onset Stroke Mother Heart attack Mother Prostate cancer Father Diabetes Father No Known Problems Sister Prostate cancer Brother Stomach cancer Paternal Grandfather Family Status - Relation Status Age at Mother Father Sister Brother Paternal Grandfather Level of Service:00524 [place] OFFICE/OUTPATIENT ESTABLISHED MOD MDM 30 MIN Reason for Visit and Comments: Follow-up [017455] Groin Pain [763378] Back Pain [12] Normal [facility] Refillon 04-16-2024 Refill [id number] Bertha Xie Vipul 1945 M Date Provider Department Center 04/16/2024 TRACEY OROZCO [facility] Comprehensiv Family History Problem Relation Age of Onset Stroke Mother Heart attack Mother Prostate cancer Father Diabetes Father No Known Problems Sister Prostate cancer Brother Stomach cancer Paternal Grandfather Family Status - Relation Status Age at Mother Father Sister Brother Paternal Grandfather Reason for Visit and Comments: Med Refill [[id number]] [facility] Office Visiton 03-31-2024 Follow-up visit [id number] Bertha Xie Vipul 1945 M Date Provider Department Center 03/31/2024 HERRERA SOLIS [facility] Comprehensiv Family History Problem Relation Age of Onset Stroke Mother Heart attack Mother Prostate cancer Father Diabetes Father No Known Problems Sister Prostate cancer Brother Stomach cancer Paternal Grandfather Family Status - Relation Status Age at Mother Father Sister Brother Paternal Grandfather Level of Service:68999 [place] OFFICE/OUTPATIENT ESTABLISHED MOD MDM 30 MIN (GC) Reason for Visit and Comments: Follow-up [[id number]] Normal [facility] Refillon 03-22-2024 Refill [id number] Bertha Xie Vipul 1945 M Date Provider Department Center 03/22/2024 TRACEY OROZCO [facility] Comprehensiv Family History Problem Relation Age of Onset Stroke Mother Heart attack Mother Prostate cancer Father Diabetes Father No Known Problems Sister Prostate cancer Brother Stomach cancer Paternal Grandfather Family Status - Relation Status Age at Mother Father Sister Brother Paternal Grandfather Reason for Visit and Comments: Med Refill [[id number]] Normal [facility] Refillon 02-27-2024 Refill [id number] Bertha Xie Vipul 1945 M Date Provider Department Center 02/27/2024 TRACEY OROZCO [facility] Comprehensiv Family History Problem Relation Age of Onset Stroke Mother Heart attack Mother Prostate cancer Father Diabetes Father No Known Problems Sister Prostate cancer Brother Stomach cancer Paternal Grandfather Family Status - Relation Status Age at Mother Father Sister Brother Paternal Grandfather Reason for Visit and Comments: Med Refill [[id number]] Normal [facility] Refillon 02-17-2024 Refill [id number] Bertha Xie Vipul 1945 M Date Provider Department Center 02/17/2024 TRACEY OROZCO [facility] Comprehensiv Family History Problem Relation Age of Onset Stroke Mother Heart attack Mother Prostate cancer Father Diabetes Father No Known Problems Sister Prostate cancer Brother Stomach cancer Paternal Grandfather Family Status - Relation Status Age at Mother Father Sister Brother Paternal Grandfather Reason for Visit and Comments: Med Refill [[id number]] [facility] Office Visiton 02-03-2024 Follow-up visit [id number] Bertha Xie Vipul 1945 M Date Provider Department Center 02/03/2024 TRACEY OROZCO [facility] Comprehensiv Family History Problem Relation Age of Onset Stroke Mother Heart attack Mother Prostate cancer Father Diabetes Father No Known Problems Sister Prostate cancer Brother Stomach cancer Paternal Grandfather Family Status - Relation Status Age at Mother Father Sister Brother Paternal Grandfather Level of Service:G0439 [place] PPPS, SUBSEQ VISIT () Reason for Visit and Comments: Annual Exam [83] - Ankle pain x's 1 wk. Neck pain. 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 [facility] Refillon 01-12-2024 Refill [id number] Bertha Xie Vipul 1945 M Date Provider Department Center 01/12/2024 TRACEY OROZCO [facility] Comprehensiv Family History Problem Relation Age of Onset Stroke Mother Heart attack Mother Prostate cancer Father Diabetes Father No Known Problems Sister Prostate cancer Brother Stomach cancer Paternal Grandfather Family Status - Relation Status Age at Mother Father Sister Brother Paternal Grandfather Reason for Visit and Comments: Med Refill [[id number]] [facility] Office Visiton 01-06-2024 Follow-up visit [id number] Bertha Xie Vipul 1945 M Date Provider Department Center 01/06/2024 TIFF MABRY MORRO Kothari Family History Problem Relation Age of Onset Stroke Mother Heart attack Mother Prostate cancer Father Diabetes Father No Known Problems Sister Prostate cancer Brother Stomach cancer Paternal Grandfather Family Status - Relation Status Age at Mother Father Sister Brother Paternal Grandfather Level of Service:32013 [place] OFFICE/OUTPATIENT ESTABLISHED MOD MDM 30 MIN Reason for Visit and Comments: Congestive Heart Failure [127] Coronary Artery Disease [187] Atrial Fibrillation [80] Hypertension [041368] Hyperlipidemia [182] [facility] 37on 12-24-2023 37 Labs in 6-8 months then follow up after labs Normal [facility] Refillon 12-24-2023 Refill [id number] Bertha Xie 1945 M Date Provider Department Center 12/24/2023 TRACEY OROZCO [facility] Comprehensiv Family History Problem Relation Age of Onset Stroke Mother Heart attack Mother Prostate cancer Father Diabetes Father No Known Problems Sister Prostate cancer Brother Stomach cancer Paternal Grandfather Family Status - Relation Status Age at Mother Father Sister Brother Paternal Grandfather Reason for Visit and Comments: Med Refill [[id number]] Normal [facility] Follow-Upon 12-17-2023 Follow-Up [id number] Bertha Xie Vipul 1945 M Date Provider Department Center 12/17/2023 HERRERA SOLIS [facility] Comprehensiv Family History Problem Relation Age of Onset Stroke Mother Heart attack Mother Prostate cancer Father Diabetes Father No Known Problems Sister Prostate cancer Brother Stomach cancer Paternal Grandfather Family Status - Relation Status Age at Mother Father Sister Brother Paternal Grandfather Level of Service:94927 [place] OFFICE/OUTPATIENT ESTABLISHED MOD MDM 30 MIN (GC) Reason for Visit and Comments: Chronic Kidney Disease [176] Follow-up [001921] [facility] Orders Onlyon 12-15-2023 Orders Only [id number] Bertha Xie Vipul 1945 M Date Provider Department Center 12/15/2023 AbigailHERRERA LOBO [facility] Comprehensiv Family History Problem Relation Age of Onset Stroke Mother Heart attack Mother Prostate cancer Father Diabetes Father No Known Problems Sister Prostate cancer Brother Stomach cancer Paternal Grandfather Family Status - Relation Status Age at Mother Father Sister Brother Paternal Grandfather [facility] Office Visiton 12-11-2023 Follow-up visit [id number] Bertha Xie Vipul 1945 M Date Provider Department Center 12/11/2023 [facility] Family History Problem Relation Age of Onset Stroke Mother Heart attack Mother Prostate cancer Father Diabetes Father No Known Problems Sister Prostate cancer Brother Stomach cancer Paternal Grandfather Family Status - Relation Status Age at Mother Father Sister Brother Paternal Grandfather Level of Service:00761 [place] OFFICE/OUTPATIENT NEW LOW MDM 30 MINUTES Reason for Visit and Comments: Pain [136] - New patient [facility] 3612-10-2023 36 Received a message from [facility] that they needed Bertha in office this week STAT with any provider. Spoke with Rocío and we added patient to tomorrow at 2:00 with Alvarez. Per [facility] she said he will be here tomorrow at 2pm. [facility] 36on 12-01-2023 36 Called to remind patient of his appointment and to have labs done prior to his visit. LVM to call back if he has questions [facility] COMPLETE BLOOD COUNTon 11-25 Erythrocyte distribution width (RBC) [Ratio] 13.4 % Normal 11.5-15.0 [facility] Comment on above: Performed By: #### C JEFFREY SOSA, 05314-0 #### [facility] ([id number]) [address], [address] [place] [address] Hematocrit (Bld) [Volume fraction] 37.9 % Low 39-49 [facility] Comment on above: Performed By: #### JEFFREY WOODS, 43998-9 #### [facility] ([id number]) [address], [address] [place] [address] Hemoglobin (Bld) [Mass/Vol] 13.3 g/dL Normal 13.0-17.0 [facility] Comment on above: Performed By: #### JEFFREY WOODS, [id number] #### [facility] ([id number]) [address], [address] [place] [address] MCH (RBC) [Entitic mass] 31.5 pg Normal 27-34 [facility] Comment on above: Performed By: #### ALEJANDRO WOODSR, 60961-1 #### [facility] ([id number]) [address], [address] [place] [address] MCHC (RBC) [Mass/Vol] 35.0 g/dL Normal 32-36 [facility] Comment on above: Performed By: #### C IAN, PINR, [id number] #### [facility] ([id number]) [address], [address] [place] [address] MCV (RBC) [Entitic vol] 90 fL Normal 80-100 [facility] Comment on above: Performed By: #### Elizabeth SOSA PINR, [id number] #### [facility] ([id number]) [address], [address] [place] [address] Platelet mean volume (Bld) [Entitic vol] 8.1 fL Normal 7-12 [facility] Comment on above: Performed By: #### Elizabeth SOSA PINR, [id number] #### [facility] ([id number]) [address], [address] [place] [address] Platelets (Bld) [#/Vol] 176 10*3/uL Normal 150-450 [facility] Comment on above: Performed By: #### Elizabeth SOSA PINR, [id number] #### [facility] ([id number]) [address], [address] [place] [address] RBC COUNT 4.22 X10E12/L Normal 4.10-5.70 [facility] Comment on above: Performed By: #### Elizabeth SOSA PINR, [id number] #### [facility] ([id number]) [address], [facility] [address] [place] [address] WBC (Bld) [#/Vol] 12.8 10*3/uL High 4.0-11.0 [facility] Comment on above: Performed By: #### Elizabeth SOSA, PINR, [id number] #### [facility] ([id number]) [address], [address] [place] [address] Glucose Glucometer (BldC) [M ass/Vol]on 11-26-2023 Glucose [Mass/Vol] 95 mg/dL Normal 65-99 [facility] PROTIME AND INRon 11-26-2023 INR Coag (PPP) [Relative time] 1.1 {INR} Normal 0.8-1.1 [facility] Comment on above: Performed By: #### C BC, PINR, [id number] #### [facility] ([id number]) [address] [place] [address], [address] [place] [address] PT Coag (PPP) [Time] 12.5 s Normal 9.8-13.2 [facility] Comment on above: Performed By: #### C BC, PINR, 67556-4 #### [facility] ([id number]) [address] [place] [address], [address] [place] [address] Surgical Pathologyon 024 Surgical Pathology Normal [facility] Comment on above: Result Comment: [facility] [address] [place] [address] Surgical Pathology Consultation ADDENDUM RI Patient Name:BERTHA XIE:1945 (Age: 78)Gender:MTaken:11/26/2023eported:11/26/2023hysician(s):Carissa Huertas M.D. ([phone])Copy To:[facility] #:[id number]. Rec. #:[id number]: #[id number] Final Pathologic Diagnosis Gross diagnosis: Right kidney biopsy: Renal tissue, submitted to [facility] [employer] for routine histology, electron microscopy, and immunofluorescence. Report Electronically Signed Out gp/11/26/2023Juan R Chirinos MD Addendum ([facility]) Date Reported: 12/18/2023 Results of routine histology, immunofluorescence, and electron microscopy dated 12/10/2023 are received from Evita Ahn M.D., [facility], [address] [place] [address] and are as follows: Final Diagnosis: Kidney, needle biopsy: 1. 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 Comment: The biopsy shows features typical of nodular diabetic glomerulosclerosis with associated vascular disease. There is no evidence of an immune complex glomerulonephritis by immunofluorescence. Please see the complete report from [facility] in the patient's EMR. Electronically Signed Out Juan R Chirinos MD Interpretation performed at [facility], [address] [place] [address], License number: [id number]. Clinical History Kidney dysfunction. Gross Description Received fresh in interventional radiology for intraoperative consultation are 4 core biopsy fragments ranging from 1.8 to 2.3 cm in length. The specimens are examined intraoperatively for the presence of glomeruli, and subdivided for submission to [facility] for routine histology, electron microscopy, and immunofluorescence. gp/11/26/2023GP Intraoperative Consultation Intraoperative consultation: Right kidney biopsies: Renal tissue identified containing glomeruli. Juan R Chirinos MD Specimen(s) Received Right kidney biopsy Fee Codes(s): 1; 08226, 77670 Telephone 11-26-2023 Telephone [id number] Bertha Xie Vipul 1945 M Date Provider Department Center 11/26/2023 [facility] ONC DCC Family History Problem Relation Age of Onset Stroke Mother Heart attack Mother Prostate cancer Father Diabetes Father No Known Problems Sister Prostate cancer Brother Stomach cancer Paternal Grandfather Family Status - Relation Status Age at Mother Father Sister Brother Paternal Grandfather Normal [facility] aPTT Coag (PPP) [Time]on aPTT Coag (Bld) [Time] 28 s Normal 26-37 Pr [facility] Comment on above: Performed By: #### C BC, PINR, [id number] #### [facility] ([id number]) [address] [facility], [address] [place] [address] Refillon 11-19-2023 Refill [id number] Bertha Xie 1945 M Date Provider Department Center 11/19/2023 TRACEY OROZCO [facility] Comprehensiv Family History Problem Relation Age of Onset Stroke Mother Heart attack Mother Prostate cancer Father Diabetes Father No Known Problems Sister Prostate cancer Brother Stomach cancer Paternal Grandfather Family Status - Relation Status Age at Mother Father Sister Brother Paternal Grandfather Reason for Visit and Comments: Med Refill [[id number]] [facility] 3611-14-2023 36 Patient notified, he wants to know if you can send in a prescription stating to take BID so that he has enough medicine [facility] Orders Onlyon 11-13-2023 Orders Only [id number] Bertha Xie 1945 M Date Provider Department Center 11/13/2023 SATISH ISABEL Radiology Radiology Family History Problem Relation Age of Onset Stroke Mother Heart attack Mother Prostate cancer Father Diabetes Father No Known Problems Sister Prostate cancer Brother Stomach cancer Paternal Grandfather Family Status - Relation Status Age at Mother Father Sister Brother Paternal Grandfather [facility] 3611-12-2023 36 Pt called and confirmed that he has been taking Tamsulosin BID. Pt stated he was informed by pharmacy that prescription was written for once daily by provider. Pt wants to know did change this and if so why. [facility] 36 Called to check on patient to see why he missed his CT scan today, he did not answer. I left a detailed message asking him to reschedule his scan and to call our office back if he needs anything from us. [facility] 36 [facility] notify us that patient missed his appointment for a CT scan that was scheduled this morning. I will call patient to find out more information. [facility] 36on 11-11-2023 36 I called TT to see if he was scheduled. TT attempted to contact Bertha on 11/05/23 to schedule appt. I called and left Bertha their direct line [phone]. [facility] 36on 11-10-2023 36 Pt's pharmacy is calling to confirm pt's claim that he is to take tamsulosin BID. Is this accurate? Gabriella [phone] [facility] Telephoneon 11-10-2023 Telephone [id number] Bertha Xie 1945 M Date Provider Department [place] 11/10/2023 TRACEY OROZCO [facility] Comprehensiv Family History Problem Relation Age of Onset Stroke Mother Heart attack Mother Prostate cancer Father Diabetes Father No Known Problems Sister Prostate cancer Brother Stomach cancer Paternal Grandfather Family Status - Relation Status Age at Mother Father Sister Brother Paternal Grandfather Reason for Visit and Comments: Follow-up [[id number]] [facility] 36on 11-06-2023 36 Please advise medication refill request. Thank you kindly. [facility] Refillon 11-06-2023 Refill [id number] Bertha Xie 1945 M [facility] Provider Department [place] 11/06/2023 MIGUEL HOANG CCC JENNYFER Comprehensvirgilio Family History Problem Relation Age of Onset Stroke Mother Heart attack Mother Prostate cancer Father Diabetes Father No Known Problems Sister Prostate cancer Brother Stomach cancer Paternal Grandfather Family Status - Relation Status Age at Mother Father Sister Brother Paternal Grandfather Reason for Visit and Comments: Med Refill [[id number]] [facility] Refillon 10-06-2023 Refill [id number] Bertha Xie Vipul 1945 M Date Provider Department [place] 10/06/2023 TRACEY OROZCO [facility] Comprehensvirgilio Family History Family history unknown: Yes Reason for Visit and Comments: Med Refill [[id number]] [facility] Erroneous Telephone Encounte louisa 10-04-2023 Erroneous Telephone Encounter [id number] Bertha Xie 1945 M Date Provider Department [place] 10/04/2023 MIGUEL HOANG CCC JENNYFER Comprehensvirgilio Family History Family history unknown: Yes Reason for Visit and Comments: Error (VOID this visit) [77] [facility] 36on 09-24-2023 36 Patient is out Normal [facility] CBCon 09-24-2023 Erythrocyte distribution width (RBC) [Ratio] 13.1 % Normal 11.5-15.0 [facility] Comment on above: Performed By: #### L [id number] #### [facility] ([facility]) [address] [place] [address] ERYTHROCYTE MEAN CORPUSCULAR HEMOGLOBIN CONCENTRATION (G/DL) BY AUTOMATED 33.8 g/dL Normal 32.0-35.0 [facility] Comment on above: Performed By: #### L [id number] #### [facility] ([facility]) [address] [place] [address] Hematocrit (Bld) [Volume fraction] 42.3 % Normal 39.0-55.0 [facility] Comment on above: Performed By: #### L [id number] #### [facility] ([facility]) [address] [place] [address] Hemoglobin (Bld) [Mass/Vol] 14.3 g/dL Normal 13.0-17.0 [facility] Comment on above: Performed By: #### L [id number] #### [facility] ([facility]) [address] [place] [address] MCH (RBC) [Entitic mass] 30.9 pg Normal 27.0-33.0 [facility] Comment on above: Performed By: #### L [id number] #### [facility] ([facility]) [address] [place] [address] MCV (RBC) [Entitic vol] 91.4 fL Normal 82.0-98.0 [facility] Comment on above: Performed By: #### L [id number] #### [facility] ([facility]) [address] [place] [address] PLATELETS (10*3/UL) IN BLOOD AUTOMATED COUNT 153 10*3/uL Normal 150-400 [facility] Comment on above: Performed By: #### L [id number] #### [facility] ([facility]) [address] [place] [address] RBC (Bld) [#/Vol] 4.63 10*6/uL Normal 4.20-5.70 [facility] Comment on above: Performed By: #### L [id number] #### [facility] ([facility]) [address] [place] [address] WBC (Bld) [#/Vol] 8.84 10*3/uL Normal 4.00-10.60 [facility] Comment on above: Performed By: #### L [id number] #### [facility] ([facility]) [address] [place] [address] COMPREHENSIVE METABOLIC PANE Kana 09-24-2023 Albumin [Mass/Vol] 3.7 g/dL Normal 3.5-5.7 [facility] Comment on above: Performed By: #### L AB17 #### [facility] ([facility]) [address] [place] [address] ALP [Catalytic activity/Vol] 129 U/L High 34-104 [facility] Comment on above: Performed By: #### L [id number] #### [facility] ([facility]) [address] [place] [address] ALT [Catalytic activity/Vol] 39 U/L Normal 7-52 [facility] Comment on above: Performed By: #### L [id number] #### [facility] ([facility]) [address] [place] [address] Anion gap [Moles/Vol] 12 mmol/L Normal 7-20 [facility] Comment on above: Performed By: #### L [id number] #### [facility] ([facility]) [address] [place] [address] AST [Catalytic activity/Vol] 25 U/L Normal 13-39 [facility] Comment on above: Performed By: #### L [id number] #### [facility] ([facility]) [address] [place] [address] Bilirubin [Mass/Vol] 0.4 mg/dL Normal 0.3-1.0 [facility] Comment on above: Performed By: #### L [id number] #### [facility] ([facility]) [address] [place] [address] Calcium [Mass/Vol] 8.9 mg/dL Normal 8.6-10.3 [facility] Comment on above: Performed By: #### L [id number] #### [facility] ([facility]) [address] [place] [address] Chloride [Moles/Vol] 99 mmol/L Normal 98-107 [facility] Comment on above: Performed By: #### L [id number] #### [facility] ([facility]) [address] [place] [address] CO2 [Moles/Vol] 28 mmol/L Normal 21-31 [facility] Comment on above: Performed By: #### L [id number] #### [facility] ([facility]) [address] [place] [address] Creatinine [Mass/Vol] 2.97 mg/dL High 0.70-1.30 [facility] Comment on above: Performed By: #### L [id number] #### [facility] ([facility]) [address] [place] [address] GLOMERULAR FILTRATION RATE ML/MIN/1.73 SQ M.PREDICTED 20.9 mL/min/1.73m*2 Low >60.0 [facility] Comment on above: Result Comment: [facility]???s estimated glomerular filtration rate (eGFR) will no longer include consideration of race in its calculation. The National Kidney Foundation???s eGFR Task Force developed new recommendations for [...] one group of individuals. Performed By: #### L AB17 #### [facility] ([facility]) [address] [place] [address] Glucose [Mass/Vol] 271 mg/dL High 70-100 [facility] Comment on above: Performed By: #### L [id number] #### [facility] ([facility]) [address] [place] [address] Potassium [Moles/Vol] 5.0 mmol/L Normal 3.5-5.1 [facility] Comment on above: Performed By: #### L [id number] #### [facility] ([facility]) [address] [place] [address] Protein [Mass/Vol] 7.4 g/dL Normal 6.0-8.3 [facility] Comment on above: Performed By: #### L [id number] #### [facility] ([facility]) [address] [place] [address] Sodium [Moles/Vol] 134 mmol/L Low 136-145 [facility] Comment on above: Performed By: #### L [id number] #### [facility] ([facility]) [address] [place] [address] Urea nitrogen [Mass/Vol] 52 mg/dL High 7-25 [facility] Comment on above: Performed By: #### L [id number] #### [facility] ([facility]) [address] [place] [address] UREA NITROGEN/CREATININE (MASS RATIO) IN SER/PLAS 17.5 Normal [facility] Comment on above: Performed By: #### L [id number] #### [facility] ([facility]) [address] [place] [address] CREATININE, URINE, RANDOMon 09-24-2023 Creatinine (U) [Mass/Vol] 73.0 mg/dL Normal 26-299 [facility] Comment on above: Performed By: #### L [id number] #### [facility] ([facility]) [address] [place] [address] Follow-Upon 09-24-2023 Follow-Up [id number] Bertha Xie Vipul 1945 M Date Provider Department Center 09/24/2023 HERRERA SOLIS [facility] Comprehensiv Family History Family history unknown: Yes Level of Service:82991 RI OFFICE/OUTPATIENT ESTABLISHED MOD MDM 30 MIN (GC) Reason for Visit and Comments: Follow-up [[id number]] [facility] HEMOGLOBIN A1Con 09-24-2023 Glucose [Mass/Vol] 220 mg/dL Normal [facility] Comment on above: Performed By: #### L AB90 ####[facility] ([facility])[address] [place] [address] HbA1c (Bld) [Mass fraction] 9.3 % High 4.0-6.0 [facility] Comment on above: Performed By: #### L AB90 ####[facility] ([facility])[address] [place] [address] IMMUNOFIXATION ELECTROPHORES Sacha 09-24-2023 IMMUNOFIXATION ELECTROPHORESIS 1 See attached report [facility] Comment on above: Performed By: #### L AB174 #### [facility] ([facility]) [address] [place] [address] Magnesium [Mass/Vol] 1540 mg/dL Normal 591-1540 [facility] Comment on above: Performed By: #### L AB174 #### [facility] ([facility]) [address] [place] [address] Magnesium [Mass/Vol] 565 mg/dL High 60-413 [facility] Comment on above: Performed By: #### L AB174 #### [facility] ([facility]) [address] [place] [address] Magnesium [Mass/Vol] 102 mg/dL Normal 54-285 [facility] Comment on above: Performed By: #### L AB174 #### [facility] ([facility]) [address] [place] [address] KAPPA / LAMBDA LIGHT CHAINS, FREEon 09-24-2023 IMMUNOGLOBULIN LIGHT CHAINS KAPPA/LAMBDA (MASS RATIO) IN SERUM 1.59 Normal 0.22-1.74 [facility] Comment on above: Result Comment: Test Performed by [facility] [place] [address] - Released 09/25/2023 02:16 Performed By: #### L [id number] #### [facility] ([facility]) [address] [place] [address] IMMUNOGLOBULIN LIGHT CHAINS.KAPPA (MG/DL) IN SERUM 141.0 mg/L High <20.8 [facility] Comment on above: Result Comment: Perf ormed using Diazyme reagent on Leora Carmella Pro. Results obtained with different assay methods cannot be used interchangeably. Performed By: #### L AB174 #### [facility] ([facility]) [address] [place] [address] IMMUNOGLOBULIN LIGHT CHAINS.LAMBDA (MG/DL) IN SERUM 88.6 mg/L High 4.2-27.7 [facility] Comment on above: Result Comment: Perf ormed using Diazyme reagent on Leora Carmella Pro. Results obtained with different assay methods cannot be used interchangeably. Performed By: #### L AB174 #### [facility] ([facility]) [address] [place] [address] Labon 09-24-2023 Lab [id number] Bertha Xie 1945 M Date Provider Department [place] 09/24/2023 [facility] RESOURCE [facility] Comprehensiv Family History Family history unknown: Yes Normal [facility] MAGNESIUMon 09-24-2023 Magnesium [Mass/Vol] 2.0 mg/dL Normal 1.9-2.7 [facility] Comment on above: Performed By: #### L AB103 #### [facility] ([facility]) [address] [place] [address] PHOSPHORUSon 09-24-2023 Magnesium [Mass/Vol] 3.4 mg/dL Normal 2.5-5.0 [facility] Comment on above: Performed By: #### L AB113 #### [facility] ([facility]) [address] [place] [address] PROTEIN ELECTROPHORESIS, SER UMon 09-24-2023 Protein [Mass/Vol] 7.0 g/dL Normal 6.0-8.3 [facility] Comment on above: Performed By: #### L AB119 ####[facility] ([facility])[address] [place] [address] PROTEIN FRACTION (INTERPRETATION) IN SER/PLAS BY ELECTROPHORESIS Please see attached report. [facility] Comment on above: Performed By: #### L AB119 ####[facility] ([facility])[address] [place] [address] PROTEIN ELECTROPHORESIS, URI NE, RANDOMon 09-24-2023 Protein (U) [Mass/Vol] 48.5 mg/dL Normal Un [facility] Comment on above: Result Comment: Ther e are no established reference values for random urine specimens. Performed By: #### P ROTEIN ELECTROPHORESIS, URINE, RANDOM #### [facility] ([facility]) [address] [place] [address] Performed By: #### L [id number] ####[facility] ([facility])[address] [place] [address] UPEP INTERPRETATION Please see attached report. [facility] Comment on above: Performed By: #### P ROTEIN ELECTROPHORESIS, URINE, RANDOM #### [facility] ([facility]) [address] [place] [address] Refillon 09-24-2023 Refill [id number] Bertha Xie 1945 M Date Provider Department Center 09/24/2023 TRACEY OROZCO [facility] Comprehensiv Family History Family history unknown: Yes Reason for Visit and Comments: Med Refill [[id number]] [facility] Refillon 09-23-2023 Refill [id number] Bertha Xie 1945 M Date Provider Department Center 09/23/2023 TRACEY OROZCO [facility] Comprehensiv Family History Family history unknown: Yes Reason for Visit and Comments: Med Refill [[id number]] Normal [facility] POCT Glucose Fingerstickon 0 09-17-2023 Glucose [Mass/Vol] 202 mg/dL Abnormal 65 - 99 mg/dL [facility] Interpretation and review of laboratory results Abnormal [facility] POCT Hemoglobin A1con 2023 ADA Target < 8 Yes [facility] HbA1c (Bld) [Mass fraction] 8.8 g/dL Abnormal 4 - 7 g/[facility] Interpretation and review of laboratory results Abnormal [facility] 29on 09-04-2023 29 Addended by: MATTHIEU RUIZ on: 09/05/2023 04:55 PM Modules accepted: Level of Service [facility] Consulton 09-04-2023 Consult [id number] Anne-MarieBertha velasquez Vipul 1945 M Date Provider Department Center 09/04/2023 [id number] RUIZ [facility] SURG Second Fl Family History Family history unknown: Yes Level of Service:67678 [place] OFFICE/OUTPATIENT NEW LOW MDM 30 MINUTES Reason for Visit and Comments: Hernia [160] - Bertha is here today for a consult visit for a hernia of abdominal wall. Normal [facility] Follow-Upon 09-03-2023 Follow-Up [id number] Anne-MarieBertha velasquez Vipul 1945 M Date Provider Department Center 09/03/2023 YONIS MATHIS [facility] Comprehensiv Family History Family history unknown: Yes Level of Service:52992 [place] OFFICE/OUTPATIENT ESTABLISHED MOD MDM 30 MIN () Reason for Visit and Comments: CDM FOLLOW UP. [Other] - Discomfort in the enter lower extremity Please advise pt states all meds are the same, med list needs to be updated. Normal [facility] Refillon 08-17-2023 Refill [id number] Bertha Xie Vipul 1945 M Date Provider Department Center 08/17/2023 [facility]CO [facility] [facility] Comprehensiv Family History Family history unknown: Yes Reason for Visit and Comments: Med Refill [[id number]] [facility] Follow-Upon 08-12-2023 Follow-Up [id number] Bertha Xie 1945 M Date Provider Department Center 08/12/2023 180-TRACEY CRONIN [facility] Comprehensiv Family History Family history unknown: Yes Level of Service:57357 RI OFFICE/OUTPATIENT ESTABLISHED MOD MDM 30 MIN Reason for Visit and Comments: Follow-up [[id number]] - HTN Follow up , Abdominal pain x's 2 yrs. [facility] 36on 08-08-2023 36 Please let him know his CXR looks good. Thanks [facility] Telephoneon 08-08-2023 Telephone [id number] Bertha Xie 1945 M Date Provider Department Center 08/08/2023 TIFF [facility] [address] Family History Family history unknown: Yes [facility] CBC with Auto Differentialon 09-23-2022 Absolute Eos # 0.50 High [facility] Absolute Immature Granulocyte 0.03 [facility] Absolute Lymph # 2.87 [facility] Absolute [place] # 0.83 [facility] Basophils (Bld) [#/Vol] 0.05 10*3/uL [facility] Basophils/100 WBC (Bld) 1 % 0 - 2 % [facility] Eosinophils/100 WBC (Bld) 6 % High 1 - 4 % [facility] Hematocrit (Bld) [Volume fraction] 37.1 % Low 40.7 - 50.3 % [facility] Hemoglobin (Bld) [Mass/Vol] 12.5 g/dL Low 13.0 - 17.0 g/dL [facility] Immature granulocytes/100 WBC (Bld) 0 % 0 [facility] Interpretation and review of laboratory results Abnormal [facility] Lymphocytes/100 WBC (Bld) 33 % 24 - 43 % [facility] MCH (RBC) [Entitic mass] 32.2 pg 25.2 - 33.5 pg [facility] MCHC (RBC) [Mass/Vol] 33.7 g/dL 28.4 - 34.8 g/dL [facility] MCV (RBC) [Entitic vol] 95.6 fL 82.6 - 102.9 fL [facility] Monocytes/100 WBC (Bld) 10 % 3 - 12 % B ON [facility] NRBC Automated 0.0 0.0 per 100 WBC [facility] Platelet distribution width (Bld) [Ratio] 13.2 % 11.8 - 14.4 % [facility] Platelet mean volume (Bld) [Entitic vol] 10.3 fL 8.1 - 13.5 fL [facility] Platelets (Bld) [#/Vol] 143 10*3/uL [facility] RBC (Bld) [#/Vol] 3.88 10*6/uL Low 4.21 - 5.7 7 m/uL [facility] Segmented neutrophils/100 WBC (Bld) 51 % 36 - 65 % [facility] Segs Absolute 4.38 [facility] WBC (Bld) [#/Vol] 8.7 10*3/uL [facility] CBC with Diffon 09-23-2022 Abs. Basophil 0.05 k/uL Normal 0.00-0.20 [facility] Comment on above: Performed By: #### C DP, IPF, BMPX #### [facility] [address] [place] [address] [place] [address] Lock Assembler: Jabari Padgett MD Abs.Imm.Granulocyte 0.03 k/uL Normal 0.00-0.30 [facility] Comment on above: Performed By: #### C DP, IPF, BMPX #### [facility] [address] [place], [place] [id number] Lock Assembler: Jabari Padgett MD Abs.Neutrophil (Seg) 4.38 k/uL Normal 1.50-8.10 [facility] Comment on above: Performed By: #### C DP, IPF, BMPX #### [facility] [address] [place], [place] [id number] Lock Assembler: Jabari Padgett MD Basophils/100 WBC (Bld) 1 % Normal 0-2 M [facility] Comment on above: Performed By: #### C DP, IPF, BMPX #### [facility] [address] [place], [place] [id number] Lock Assembler: Jabari Padgett MD Eosinophils (Bld) [#/Vol] 0.50 10*3/uL High 0.00-0.44 [facility] Comment on above: Performed By: #### C DP, IPF, BMPX #### [address] [place], [place] [id number] Lock Assembler: Jabari Padgett MD Eosinophils/100 WBC (Bld) 6 % High 1-4 [facility] Comment on above: Performed By: #### C DP, IPF, BMPX #### [address] [place], [facility]83 Lock Assembler: Jabari Padgett MD Erythrocyte distribution width (RBC) [Ratio] 13.2 % Normal 11.8-14.4 [facility] Comment on above: Performed By: #### C DP, IPF, BMPX #### [address] [place] [address] Lock Assembler: Jabari Padgett MD Hematocrit (Bld) [Volume fraction] 37.1 % Low 40.7-50.3 [facility] Comment on above: Performed By: #### C DP, IPF, BMPX #### [address] [place], [place] 6539583 Lock Assembler: Jabari Padgett MD Hemoglobin (Bld) [Mass/Vol] 12.5 g/dL Low 13.0-17.0 [facility] Comment on above: Performed By: #### C DP, IPF, BMPX #### [address] [place] [address] Lock Assembler: Jabari Padgett MD Immature granulocytes/100 WBC (Bld) 0 % Normal 0 [facility] Comment on above: Performed By: #### C DP, IPF, BMPX #### [facility] [address] [place], [place] 1171683 Lock Assembler: Jabari Padgett MD Lymphocytes (Bld) [#/Vol] 2.87 10*3/uL Normal 1.10-3.70 [facility] Comment on above: Performed By: #### C DP, IPF, BMPX #### [facility] [address] [place], [place] [id number] Lock Assembler: Jabari Padgett MD Lymphocytes/100 WBC (Bld) 33 % Normal 24-43 [facility] Comment on above: Performed By: #### C DP, IPF, BMPX #### [address] [place], [facility]83 Lock Assembler: Jabari Padgett MD MCH (RBC) [Entitic mass] 32.2 pg Normal 25.2-33.5 [facility] Comment on above: Performed By: #### C DP, IPF, BMPX #### [address] [place], [place] 7946883 Lock Assembler: Jabari Padgett MD MCHC (RBC) [Mass/Vol] 33.7 g/dL Normal 28.4-34.8 [facility] Comment on above: Performed By: #### C DP, IPF, BMPX #### [address] [place], [place] 7014383 Lock Assembler: Jabari Padgett MD MCV (RBC) [Entitic vol] 95.6 fL Normal 82.6-102.9 [facility] Comment on above: Performed By: #### C DP, IPF, BMPX #### [facility] [address] [place] [address] Lock Assembler: Jabari Padgett MD Monocytes (Bld) [#/Vol] 0.83 10*3/uL Normal 0.10-1.20 [facility] Comment on above: Performed By: #### C DP, IPF, BMPX #### [facility] [address] [place], [place] 4801983 Lock Assembler: Jabari Padgett MD Monocytes/100 WBC (Bld) 10 % Normal 3-12 M [facility] Comment on above: Performed By: #### C DP, IPF, BMPX #### [facility] [address] [place] [address] Lock Assembler: Jabari Padgett MD Neutrophil (Seg) 51 % Normal 36-65 [facility] Comment on above: Performed By: #### C DP, IPF, BMPX #### [facility] [address] [place], [place] 7147683 Lock Assembler: Jabari Padgett MD NRBC Automated 0.0 per 100 WBC Normal 0.0 [facility] Comment on above: Performed By: #### C DP, IPF, BMPX #### [facility] [address] [place], [place] 7833583 Lock Assembler: Jabari Padgett MD Platelet mean volume (Bld) [Entitic vol] 10.3 fL Normal 8.1-13.5 [facility] Comment on above: Performed By: #### C DP, IPF, BMPX #### [facility] [address] [place] [address] Lock Assembler: Jabari Padgett MD Platelets (Bld) [#/Vol] 143 10*3/uL Normal 138-453 [facility] Comment on above: Performed By: #### C DP, IPF, BMPX #### [facility] [address] [place], [place] 4308883 Lock Assembler: Jabari Padgett MD RBC (Bld) [#/Vol] 3.88 10*6/uL Low 4.21-5.77 [facility] Comment on above: Performed By: #### C DP, IPF, BMPX #### [facility] [address] [place], [place] 7314883 Lock Assembler: Jabari Padgett MD WBC (Bld) [#/Vol] 8.7 10*3/uL Normal 3.5-11.3 [facility] Comment on above: Performed By: #### C DP, IPF, BMPX #### [facility] [address] [place], [place] 5297983 Lock Assembler: Jabari Padgett MD Comp Metabolic Profon 2022 Albumin [Mass/Vol] 3.3 g/dL Low 3.5-5.2 [facility] Comment on above: Performed By: #### C DP, IPF, BMPX #### [facility] [address] [place], [place] 8361483 Lock Assembler: Jabari Padgett MD Albumin/Glob Ratio 1.0 Normal 1.0-2.5 [facility] Comment on above: Performed By: #### C DP, IPF, BMPX #### [facility] [address] [place], [place] 4345883 Lock Assembler: Jabari Padgett MD Alkaline Phos 111 U/L Normal 40-129 [facility] Comment on above: Performed By: #### C DP, IPF, BMPX #### [facility] [address] [place], [place] 7933983 Lock Assembler: Jabari Padgett MD ALT [Catalytic activity/Vol] 26 U/L Normal 5-41 [facility] Comment on above: Performed By: #### C DP, IPF, BMPX #### [facility] [address] [place] [address] Lock Assembler: Jabari Padgett MD Anion gap [Moles/Vol] 8 mmol/L Low 9-17 [facility] Comment on above: Performed By: #### C DP, IPF, BMPX #### [facility] [address] [place], [place] 4625483 Lock Assembler: Jabari Padgett MD AST [Catalytic activity/Vol] 19 U/L Normal <40 [facility] Comment on above: Performed By: #### C DP, IPF, BMPX #### [facility] [address] [place], [place] 9505483 Lock Assembler: Jabari Padgett MD Bilirubin [Mass/Vol] 0.3 mg/dL Normal 0.3-1.2 [facility] Comment on above: Performed By: #### C DP, IPF, BMPX #### [facility] [address] [place], [place] 1166583 Lock Assembler: Jabari Padgett MD BUN/CRE Ratio 17 Normal 9-20 [facility] Comment on above: Performed By: #### C DP, IPF, BMPX #### [facility] [address] [place], [place] 3509683 Lock Assembler: Jabari Padgett MD Calcium [Mass/Vol] 8.9 mg/dL Normal 8.6-10.4 [facility] Comment on above: Performed By: #### C DP, IPF, BMPX #### [facility] [address] [place], [place] 6264483 Lock Assembler: Jabari Padgett MD Chloride [Moles/Vol] 101 mmol/L Normal 98-107 [facility] Comment on above: Performed By: #### C DP, IPF, BMPX #### [facility] [address] [place], [place] 3538983 Lock Assembler: Jabari Padgett MD CO2 [Moles/Vol] 29 mmol/L Normal 20-31 [facility] Comment on above: Performed By: #### C DP, IPF, BMPX #### [facility] [address] [place] [address] Lock Assembler: Jabari Padgett MD Creatinine [Mass/Vol] 2.57 mg/dL High 0.70-1.20 [facility] Comment on above: Performed By: #### C DP IPF, BMPX #### [facility] [address] [place] [address] Lock Assembler: Jabari Padgett MD GFR/1.73 sq M.predicted among non-blacks MDRD (S/P/Bld) [Vol rate/Area] 25 mL/min/{1.73_m2} Low >60 [facility] Comment on above: Result Comment: These [...] C DP IPF, BMPX #### [facility] [address] [place] [address] [place] [address] Lock Assembler: Jabari Padgett MD Glucose [Mass/Vol] 179 mg/dL High 70-99 [facility] Comment on above: Performed By: #### C DEENA IPF, BMPX #### [facility] [address] [place] [address] Lock Assembler: Jabari Padgett MD Potassium [Moles/Vol] 4.2 mmol/L Normal 3.7-5.3 [facility] Comment on above: Performed By: #### C DP IPF, BMPX #### [facility] [address] [place] [address] Lock Assembler: Jabari Padgett MD Protein [Mass/Vol] 6.7 g/dL Normal 6.4-8.3 [facility] Comment on above: Performed By: #### C DP, IPF, BMPX #### [facility] [address] [place] [address] Lock Assembler: Jabari Padgett MD Sodium [Moles/Vol] 138 mmol/L Normal 135-144 [facility] Comment on above: Performed By: #### C DP, IPF, BMPX #### [facility] [address] [place] [address] Lock Assembler: Jabari Padgett MD Urea nitrogen [Mass/Vol] 43 mg/dL High 8-23 [facility] Comment on above: Performed By: #### C DP, IPF, BMPX #### [facility] [address] [place] [address] Lock Assembler: Jabari Padgett MD Comprehensive Metabolic Pane [facility] 09-23-2022 Albumin [Mass/Vol] 3.3 g/dL Low 3.5 - 5.2 g/dL [facility] Albumin/Globulin [Mass ratio] 1.0 {ratio} 1.0 - 2.5 [facility] ALP [Catalytic activity/Vol] 111 U/L 40 - 129 U/L [facility] ALT [Catalytic activity/Vol] 26 U/L 5 - 41 U/L [facility] Anion gap [Moles/Vol] 8 mmol/L Low 9 - 17 mmol/L [facility] AST [Catalytic activity/Vol] 19 U/L NINF - 40 U/L [facility] Bilirubin [Mass/Vol] 0.3 mg/dL 0.3 - 1 .2 mg/dL [facility] Calcium [Mass/Vol] 8.9 mg/dL 8.6 - 10. 4 mg/dL [facility] Chloride [Moles/Vol] 101 mmol/L 98 - 10 7 mmol/L [facility] CO2 [Moles/Vol] 29 mmol/L 20 - 31 mmol/L [facility] Creatinine [Mass/Vol] 2.57 mg/dL High 0.70 - 1.20 mg/dL [facility] GFR/1.73 sq M.predicted MDRD (S/P/Bld) [Vol rate/Area] 25 mL/min/{1.73_m2} Low - PINF [facility] Comment on above: These results are not [...] 179 mg/dL High 70 - 99 mg/dL [facility] Interpretation and review of laboratory results Abnormal [facility] Potassium [Moles/Vol] 4.2 mmol/L 3.7 - 5.3 mmol/L [facility] Protein [Mass/Vol] 6.7 g/dL 6.4 - 8.3 g/dL [facility] Sodium [Moles/Vol] 138 mmol/L 135 - 144 mmol/L [facility] Urea nitrogen [Mass/Vol] 43 mg/dL High 8 - 23 mg/dL [facility] Urea nitrogen/Creatinine (Bld) [Mass ratio] 17 9 - 20 [facility] CBC with Auto Differentialon 09-16-2022 Absolute Eos # 0.23 [facility] Absolute Immature Granulocyte [facility] Absolute Lymph # 2.28 [facility] Absolute [place] # 0.81 [facility] RS [facility] Basophils (Bld) [#/Vol] 0.04 10*3/uL [facility] Basophils/100 WBC (Bld) 1 % 0 - 2 % B [facility] Eosinophils/100 WBC (Bld) 3 % 1 - 4 % [facility] Hematocrit (Bld) [Volume fraction] 35.5 % Low 40.7 - 50.3 % [facility] Hemoglobin (Bld) [Mass/Vol] 12.5 g/dL Low 13.0 - 17.0 g/dL [facility] Immature granulocytes/100 WBC (Bld) 0 % 0 [facility] Interpretation and review of laboratory results Abnormal [facility] Lymphocytes/100 WBC (Bld) 29 % 24 - 43 % [facility] MCH (RBC) [Entitic mass] 31.7 pg 25.2 - 33.5 pg [facility] MCHC (RBC) [Mass/Vol] 35.2 g/dL High 28.4 - 34.8 g/dL [facility] MCV (RBC) [Entitic vol] 90.1 fL 82.6 - 102.9 fL [facility] Monocytes/100 WBC (Bld) 10 % 3 - 12 % B ON [facility] NRBC Automated 0.0 0.0 per 100 WBC [facility] Platelet distribution width (Bld) [Ratio] 12.9 % 11.8 - 14.4 % [facility] Platelet mean volume (Bld) [Entitic vol] 10.3 fL 8.1 - 13.5 fL [facility] Platelets (Bld) [#/Vol] 160 10*3/uL [facility] RBC (Bld) [#/Vol] 3.94 10*6/uL Low 4.21 - 5.7 7 m/uL [facility] Segmented neutrophils/100 WBC (Bld) 57 % 36 - 65 % [facility] Segs Absolute 4.39 [facility] WBC (Bld) [#/Vol] 7.8 10*3/uL [facility] CBC with Diffon 09-16-2022 Abs. Basophil 0.04 k/uL Normal 0.00-0.20 [facility] Comment on above: Performed By: #### C DP, CP #### [facility] [address] [place] [address] Lock Assembler: Jabari Padgett MD Abs.Imm.Granulocyte <0.03 Normal 0.00-0.30 [facility] Comment on above: Performed By: #### C DP, CP #### [facility] [address] [place] [address] Lock Assembler: Jabari Padgett MD Abs.Neutrophil (Seg) 4.39 k/uL Normal 1.50-8.10 [facility] Comment on above: Performed By: #### C DP, CP #### [address] [place], [place] [address] Lock Assembler: Jabari Padgett MD Basophils/100 WBC (Bld) 1 % Normal 0-2 [facility] Comment on above: Performed By: #### C DP, CP #### [address] [place], [place] [address] Lock Assembler: Jabari Padgett MD Eosinophils (Bld) [#/Vol] 0.23 10*3/uL Normal 0.00-0.44 [facility] Comment on above: Performed By: #### C DP, CP #### [address] [place] [address] Lock Assembler: Jabari Padgett MD Eosinophils/100 WBC (Bld) 3 % Normal 1-4 [facility] Comment on above: Performed By: #### C DP, CP #### [address] [place], [place] [address] Lock Assembler: Jabari Padgett MD Erythrocyte distribution width (RBC) [Ratio] 12.9 % Normal 11.8-14.4 [facility] Comment on above: Performed By: #### C DP, CP #### [address] [place], [place] [address] Lock Assembler: Jabari Padgett MD Hematocrit (Bld) [Volume fraction] 35.5 % Low 40.7-50.3 [facility] Comment on above: Performed By: #### C DP, CP #### [address] [place], [facility]83 Lock Assembler: Jabari Padgett MD Hemoglobin (Bld) [Mass/Vol] 12.5 g/dL Low 13.0-17.0 [facility] Comment on above: Performed By: #### C DP, CP #### [facility] [address] [place], [place] 0772583 Lock Assembler: Jabari Padgett MD Immature granulocytes/100 WBC (Bld) 0 % Normal 0 [facility] Comment on above: Performed By: #### C DP, CP #### [facility] [address] [place], [place] 4632683 Lock Assembler: Jabari Padgett MD Lymphocytes (Bld) [#/Vol] 2.28 10*3/uL Normal 1.10-3.70 [facility] Comment on above: Performed By: #### C DP, CP #### [address] [place], [place] 7888883 Lock Assembler: Jabari Padgett MD Lymphocytes/100 WBC (Bld) 29 % Normal 24-43 [facility] Comment on above: Performed By: #### C DP, CP #### [address] [place], [place] 4626083 Lock Assembler: Jabari Padgett MD MCH (RBC) [Entitic mass] 31.7 pg Normal 25.2-33.5 [facility] Comment on above: Performed By: #### C DP, CP #### [address] [place], [place] 9975283 Lock Assembler: Jabari Padgett MD MCHC (RBC) [Mass/Vol] 35.2 g/dL High 28.4-34.8 [facility] Comment on above: Performed By: #### C DP, CP #### [address] [place] [address] Lock Assembler: Jabari Padgett MD MCV (RBC) [Entitic vol] 90.1 fL Normal 82.6-102.9 M [facility] Comment on above: Performed By: #### C DP, CP #### [address] [place], [place] 6768383 Lock Assembler: Jabari Padgett MD Monocytes (Bld) [#/Vol] 0.81 10*3/uL Normal 0.10-1.20 [facility] Comment on above: Performed By: #### C DP, CP #### [facility] [address] [place] [address] [place], [place] 7673383 Lock Assembler: Jabari Padgett MD Monocytes/100 WBC (Bld) 10 % Normal 3-12 M [facility] Comment on above: Performed By: #### C DP, CP #### [address] [place], [place] [address] Lock Assembler: Jabari Padgett MD Neutrophil (Seg) 57 % Normal 36-65 [facility] Comment on above: Performed By: #### C DP, CP #### [address] [place], [place] [address] Lock Assembler: Jabari Padgett MD NRBC Automated 0.0 per 100 WBC Normal 0.0 [facility] Comment on above: Performed By: #### C DP, CP #### [address] [place], [facility] ( Lock Assembler: Jabari Padgett MD Platelet mean volume (Bld) [Entitic vol] 10.3 fL Normal 8.1-13.5 [facility] Comment on above: Performed By: #### C DP, CP #### [address] [place], [facility]72 ( Lock Assembler: Jabari Padgett MD Platelets (Bld) [#/Vol] 160 10*3/uL Normal 138-453 [facility] Comment on above: Performed By: #### C DP, CP #### [address] [place], [place] 9613883 Lock Assembler: Jabari Padgett MD RBC (Bld) [#/Vol] 3.94 10*6/uL Low 4.21-5.77 [facility] Comment on above: Performed By: #### C DP, CP #### [facility] [address] [place], [place] 4013183 Lock Assembler: Jabari Padgett MD WBC (Bld) [#/Vol] 7.8 10*3/uL Normal 3.5-11.3 [facility] Comment on above: Performed By: #### C DP, CP #### [facility] [address] [place], [place] 9270683 Lock Assembler: Jabari Padgett MD Comp Metabolic Profon 2022 Albumin [Mass/Vol] 3.1 g/dL Low 3.5-5.2 [facility] Comment on above: Performed By: #### C DP, CP #### [address] [place] [address] Lock Assembler: Jabari Padgett MD Albumin/Glob Ratio 0.9 Low 1.0-2.5 [facility] Comment on above: Performed By: #### C DP, CP #### [address] [place], [place] 8905783 Lock Assembler: Jabari Padgett MD Alkaline Phos 120 U/L Normal 40-129 [facility] Comment on above: Performed By: #### C DP, CP #### [facility] [address] [place] [address] [place], [place] 5696783 Lock Assembler: Jabari Padgett MD ALT [Catalytic activity/Vol] 27 U/L Normal 5-41 [facility] Comment on above: Performed By: #### C DP, CP #### [facility] [address] [place] [address] Lock Assembler: Jabari Padgett MD Anion gap [Moles/Vol] 9 mmol/L Normal 9-17 [facility] Comment on above: Performed By: #### C DP, CP #### [facility] [address] [place], [place] 4610583 Lock Assembler: Jabari Padgett MD AST [Catalytic activity/Vol] 21 U/L Normal <40 [facility] Comment on above: Performed By: #### C DP, CP #### [facility] [address] [place], [place] 1409683 Lock Assembler: Jabari Padgett MD Bilirubin [Mass/Vol] 0.3 mg/dL Normal 0.3-1.2 [facility] Comment on above: Performed By: #### C DP, CP #### [facility] [address] [place], [place] 8464783 Lock Assembler: Jabari Padgett MD BUN/CRE Ratio 19 Normal 9-20 [facility] Comment on above: Performed By: #### C DP, CP #### [facility] [address] [place], [place] 3800483 Lock Assembler: Jabari Padgett MD Calcium [Mass/Vol] 8.8 mg/dL Normal 8.6-10.4 [facility] Comment on above: Performed By: #### C DP, CP #### [facility] [address] [place], [place] 9696583 Lock Assembler: Jabari Padgett MD Chloride [Moles/Vol] 101 mmol/L Normal 98-107 [facility] Comment on above: Performed By: #### C DP, CP #### [facility] [address] [place], [place] 1641383 Lock Assembler: Jabari Padgett MD CO2 [Moles/Vol] 27 mmol/L Normal 20-31 [facility] Comment on above: Performed By: #### C DP, CP #### [facility] [address] [place], [place] 5293483 Lock Assembler: Jabari Padgett MD Creatinine [Mass/Vol] 2.52 mg/dL High 0.70-1.20 [facility] Comment on above: Performed By: #### C DP, CP #### [facility] [address] [place] [address] Lock Assembler: Jabari Pdagett MD GFR/1.73 sq M.predicted among non-blacks MDRD (S/P/Bld) [Vol rate/Area] 26 mL/min/{1.73_m2} Low >60 [facility] Comment on above: Result Comment: These [...] #### C DP, CP #### [facility] [address] [place] [address] [place] [address] Lock Assembler: Jabari Padgett MD Glucose [Mass/Vol] 116 mg/dL High 70-99 [facility] Comment on above: Performed By: #### C DP, CP #### [address] [place] [address] Lock Assembler: Jabari Padgett MD Potassium [Moles/Vol] 3.9 mmol/L Normal 3.7-5.3 [facility] Comment on above: Performed By: #### C DP, CP #### [address] [place] [address] Lock Assembler: Jabari Padgett MD Protein [Mass/Vol] 6.6 g/dL Normal 6.4-8.3 [facility] Comment on above: Performed By: #### C DP, CP #### [address] [place] [address] Lock Assembler: Jabari Padgett MD Sodium [Moles/Vol] 137 mmol/L Normal 135-144 [facility] Comment on above: Performed By: #### C DP, CP #### [facility] [address] [place] [address] Lock Assembler: Jabari Padgett MD Urea nitrogen [Mass/Vol] 48 mg/dL High 8-23 [facility] Comment on above: Performed By: #### C DP, CP #### [facility] [address] [place] [address] Lock Assembler: Jabari Padgett MD [facility] 09-16-2022 Albumin [Mass/Vol] 3.1 g/dL Low 3.5 - 5.2 g/dL [facility] Albumin/Globulin [Mass ratio] 0.9 {ratio} Low 1.0 - 2.5 [facility] ALP [Catalytic activity/Vol] 120 U/L 40 - 129 U/L [facility] ALT [Catalytic activity/Vol] 27 U/L 5 - 41 U/L [facility] Anion gap [Moles/Vol] 9 mmol/L 9 - 17 mmol/L [facility] AST [Catalytic activity/Vol] 21 U/L NINF - 40 U/L [facility] Bilirubin [Mass/Vol] 0.3 mg/dL 0.3 - 1 .2 mg/dL [facility] Calcium [Mass/Vol] 8.8 mg/dL 8.6 - 10. 4 mg/dL [facility] Chloride [Moles/Vol] 101 mmol/L 98 - 10 7 mmol/L [facility] CO2 [Moles/Vol] 27 mmol/L 20 - 31 mmol/L [facility] Creatinine [Mass/Vol] 2.52 mg/dL High 0.70 - 1.20 mg/dL [facility] GFR/1.73 sq M.predicted MDRD (S/P/Bld) [Vol rate/Area] 26 mL/min/{1.73_m2} Low - PINF [facility] Comment on above: These results are not [...] 116 mg/dL High 70 - 99 mg/dL [facility] Interpretation and review of laboratory results Abnormal [facility] Potassium [Moles/Vol] 3.9 mmol/L 3.7 - 5.3 mmol/L [facility] Protein [Mass/Vol] 6.6 g/dL 6.4 - 8.3 g/dL [facility] Sodium [Moles/Vol] 137 mmol/L 135 - 144 mmol/L [facility] Urea nitrogen [Mass/Vol] 48 mg/dL High 8 - 23 mg/dL [facility] Urea nitrogen/Creatinine (Bld) [Mass ratio] 19 9 - 20 [facility] CBC with Auto Differentialon 09-09-2022 Absolute Eos # 0.12 [place] [facility] Absolute Immature Granulocyte 0.06 [facility] Absolute Lymph # 1.97 [facility] SEC[facility] URS [facility] Absolute [place] # 0.68 [facility] RS [facility] Basophils Absolute [place] [facility] Basophils/100 WBC (Bld) 0 % 0 - 2 % B [facility] Eosinophils/100 WBC (Bld) 1 % 1 - 4 % [facility] Hematocrit (Bld) [Volume fraction] 38.0 % Low 40.7 - 50.3 % [facility] Hemoglobin (Bld) [Mass/Vol] 12.8 g/dL Low 13.0 - 17.0 g/dL [facility] Immature granulocytes/100 WBC (Bld) 1 % High 0 [facility] Interpretation and review of laboratory results Abnormal [facility] Lymphocytes/100 WBC (Bld) 22 % Low 24 - 43 % [facility] MCH (RBC) [Entitic mass] 30.7 pg 25.2 - 33.5 pg [facility] MCHC (RBC) [Mass/Vol] 33.7 g/dL 28.4 - 34.8 g/dL [facility] MCV (RBC) [Entitic vol] 91.1 fL 82.6 - 102.9 fL [facility] Monocytes/100 WBC (Bld) 8 % 3 - 12 % B ON [facility] NRBC Automated 0.0 0.0 per 100 WBC [facility] Platelet distribution width (Bld) [Ratio] 12.9 % 11.8 - 14.4 % [facility] Platelet mean volume (Bld) [Entitic vol] 10.5 fL 8.1 - 13.5 fL [facility] Platelets (Bld) [#/Vol] 164 10*3/uL [facility] RBC (Bld) [#/Vol] 4.17 10*6/uL Low 4.21 - 5.7 7 m/uL [facility] Segmented neutrophils/100 WBC (Bld) 68 % High 36 - 65 % [facility] Segs Absolute 6.11 [facility] WBC (Bld) [#/Vol] 9.0 10*3/uL [facility] CBC with Diffon 09-09-2022 Abs. Basophil <0.03 Normal 0.00-0.20 [facility] Comment on above: Performed By: #### C DP, CP #### [facility] [address] [place], [place] [id number] Lock Assembler: Jabari Padgett MD Abs.Imm.Granulocyte 0.06 k/uL Normal 0.00-0.30 [facility] Comment on above: Performed By: #### C DP, CP #### [facility] [address] [place], [place] [id number] Lock Assembler: Jabari Padgett MD Abs.Neutrophil (Seg) 6.11 k/uL Normal 1.50-8.10 [facility] Comment on above: Performed By: #### C DP, CP #### [facility] [address] [place] [address] Lock Assembler: Jabari Padgett MD Basophils/100 WBC (Bld) 0 % Normal 0-2 M [facility] Comment on above: Performed By: #### C DP, CP #### [address] [place], [place] [id number] Lock Assembler: Jabari Padgett MD Eosinophils (Bld) [#/Vol] 0.12 10*3/uL Normal 0.00-0.44 [facility] Comment on above: Performed By: #### C DP, CP #### [address] [place], [place] [id number] Lock Assembler: Jabari Padgett MD Eosinophils/100 WBC (Bld) 1 % Normal 1-4 [facility] Comment on above: Performed By: #### C DP, CP #### [address] [place], [place] [id number] Lock Assembler: Jabari Padgett MD Erythrocyte distribution width (RBC) [Ratio] 12.9 % Normal 11.8-14.4 [facility] Comment on above: Performed By: #### C DP, CP #### [address] [place], [place] 9097983 Lock Assembler: Jabari Padgett MD Hematocrit (Bld) [Volume fraction] 38.0 % Low 40.7-50.3 [facility] Comment on above: Performed By: #### C DP, CP #### [address] [place], [place] 9123483 Lock Assembler: Jabari Padgett MD Hemoglobin (Bld) [Mass/Vol] 12.8 g/dL Low 13.0-17.0 [facility] Comment on above: Performed By: #### C DP, CP #### [address] [place] [address] Lock Assembler: Jabari Padgett MD Immature granulocytes/100 WBC (Bld) 1 % High 0 [facility] Comment on above: Performed By: #### C DP, CP #### [facility] [address] [place], [facility]83 Lock Assembler: Jabari Padgett MD Lymphocytes (Bld) [#/Vol] 1.97 10*3/uL Normal 1.10-3.70 [facility] Comment on above: Performed By: #### C DP, CP #### [address] [place], [facility]83 Lock Assembler: Jabari Padgett MD Lymphocytes/100 WBC (Bld) 22 % Low 24-43 [facility] Comment on above: Performed By: #### C DP, CP #### [address] [place], [facility]83 Lock Assembler: Jabari Padgett MD MCH (RBC) [Entitic mass] 30.7 pg Normal 25.2-33.5 [facility] Comment on above: Performed By: #### C DP, CP #### [address] [place], [place] [address] Lock Assembler: Jabari Padgett MD MCHC (RBC) [Mass/Vol] 33.7 g/dL Normal 28.4-34.8 [facility] Comment on above: Performed By: #### C DP, CP #### [address] [place], [place] [address] Lock Assembler: Jabari Padgett MD MCV (RBC) [Entitic vol] 91.1 fL Normal 82.6-102.9 M [facility] Comment on above: Performed By: #### C DP, CP #### [address] [place], [facility]83 Lock Assembler: Jabari Padgett MD Monocytes (Bld) [#/Vol] 0.68 10*3/uL Normal 0.10-1.20 [facility] Comment on above: Performed By: #### C DP, CP #### [facility] [address] [place], [place] [id number] Lock Assembler: Jabari Padgett MD Monocytes/100 WBC (Bld) 8 % Normal 3-12 M [facility] Comment on above: Performed By: #### C DP, CP #### [facility] [address] [place], [place] [id number] Lock Assembler: Jabari Padgett MD Neutrophil (Seg) 68 % High 36-65 [facility] Comment on above: Performed By: #### C DP, CP #### [facility] [address] [place], [place] 9892783 Lock Assembler: Jabari Padgett MD NRBC Automated 0.0 per 100 WBC Normal 0.0 [facility] Comment on above: Performed By: #### C DP, CP #### [address] [place], [facility]83 Lock Assembler: Jabari Padgett MD Platelet mean volume (Bld) [Entitic vol] 10.5 fL Normal 8.1-13.5 [facility] Comment on above: Performed By: #### C DP, CP #### [address] [place], [place] [id number] Lock Assembler: Jabari Padgett MD Platelets (Bld) [#/Vol] 164 10*3/uL Normal 138-453 [facility] Comment on above: Performed By: #### C DP, CP #### [facility] [address] [place] [address] Dr[place], [place] [id number] Lock Assembler: Jabari Padgett MD RBC (Bld) [#/Vol] 4.17 10*6/uL Low 4.21-5.77 [facility] Comment on above: Performed By: #### C DP, CP #### [address] [place] [address] Lock Assembler: Jabari Padgett MD WBC (Bld) [#/Vol] 9.0 10*3/uL Normal 3.5-11.3 [facility] Comment on above: Performed By: #### C DP, CP #### [facility] [address] [place], [place] [id number] Lock Assembler: Jabari Padgett MD Comp Metabolic Profon 2022 Albumin [Mass/Vol] 3.1 g/dL Low 3.5-5.2 [facility] Comment on above: Performed By: #### C DP, CP #### [facility] [address] [place] [address] Lock Assembler: Jabari Padgett MD Albumin/Glob Ratio 0.8 Low 1.0-2.5 [facility] Comment on above: Performed By: #### C DP, CP #### [facility] [address] [place], [place] 1107083 Lock Assembler: Jabari Padgett MD Alkaline Phos 136 U/L High 40-129 [facility] Comment on above: Performed By: #### C DP, CP #### [facility] [address] [place], [place] 709[address]83 Lock Assembler: Jabari Padgett MD ALT [Catalytic activity/Vol] 34 U/L Normal 5-41 [facility] Comment on above: Performed By: #### C DP, CP #### [facility] [address] [place] [address] Lock Assembler: Jabari Padgett MD Anion gap [Moles/Vol] 9 mmol/L Normal 9-17 [facility] Comment on above: Performed By: #### C DP, CP #### [facility] [address] [place], [place] 2205683 Lock Assembler: Jabari Padgett MD AST [Catalytic activity/Vol] 24 U/L Normal <40 [facility] Comment on above: Performed By: #### C DP, CP #### [facility] [address] [place], [place] 3354383 Lock Assembler: Jabari Padgett MD Bilirubin [Mass/Vol] 0.4 mg/dL Normal 0.3-1.2 [facility] Comment on above: Performed By: #### C DP, CP #### [facility] [address] [place], [place] 4317983 Lock Assembler: Jabari Padgett MD BUN/CRE Ratio 23 High 9-20 [facility] Comment on above: Performed By: #### C DP, CP #### [facility] [address] [place], [place] [id number] Lock Assembler: Jabari Padgett MD Calcium [Mass/Vol] 9.1 mg/dL Normal 8.6-10.4 [facility] Comment on above: Performed By: #### C DP, CP #### [facility] [address] [place], [place] 0668483 Lock Assembler: Jabari Padgett MD Chloride [Moles/Vol] 105 mmol/L Normal 98-107 [facility] Comment on above: Performed By: #### C DP, CP #### [facility] [address] [place] [address] [place], [place] 4463883 Lock Assembler: Jabari Padgett MD CO2 [Moles/Vol] 25 mmol/L Normal 20-31 [facility] Comment on above: Performed By: #### C DP, CP #### [facility] [address] [place], [place] 0499783 Lock Assembler: Jabari Padgett MD Creatinine [Mass/Vol] 2.78 mg/dL High 0.70-1.20 [facility] Comment on above: Performed By: #### C DP, CP #### [facility] [address] [place], [place] 0420483 Lock Assembler: Jabari Padgett MD GFR/1.73 sq M.predicted among non-blacks MDRD (S/P/Bld) [Vol rate/Area] 23 mL/min/{1.73_m2} Low >60 [facility] Comment on above: Result Comment: These [...] #### C DP, CP #### [facility] [address] [place] [address] [place] [address] Lock Assembler: Jabari Padgett MD Glucose [Mass/Vol] 175 mg/dL High 70-99 [facility] Comment on above: Performed By: #### C DP, CP #### [facility] [address] [place] [address] [place], [place] [id number] Lock Assembler: Jabari Padgett MD Potassium [Moles/Vol] 4.5 mmol/L Normal 3.7-5.3 [facility] Comment on above: Performed By: #### C DP, CP #### [address] [place], [place] 8981783 Lock Assembler: Jabari Padgett MD Protein [Mass/Vol] 6.8 g/dL Normal 6.4-8.3 [facility] Comment on above: Performed By: #### C DP, CP #### [facility] [address] [place] [address] [place], [place] [id number] Lock Assembler: Jabari Padgett MD Sodium [Moles/Vol] 139 mmol/L Normal 135-144 [facility] Comment on above: Performed By: #### C DP, CP #### [facility] [address] [place] [address] [place], [place] [id number] Lock Assembler: Jabari Padgett MD Urea nitrogen [Mass/Vol] 65 mg/dL High 8-23 [facility] Comment on above: Performed By: #### C DP, CP #### [facility] [address] [place] [address] Lock Assembler: Jabari Padgett MD [facility] Metabolic [facility] 09-09-2022 Albumin [Mass/Vol] 3.1 g/dL Low 3.5 - 5.2 g/dL [facility] Albumin/Globulin [Mass ratio] 0.8 {ratio} Low 1.0 - 2.5 [facility] ALP [Catalytic activity/Vol] 136 U/L High 40 - 129 U/L [facility] ALT [Catalytic activity/Vol] 34 U/L 5 - 41 U/L [facility] Anion gap [Moles/Vol] 9 mmol/L 9 - 17 mmol/L [facility] AST [Catalytic activity/Vol] 24 U/L NINF - 40 U/L [facility] Bilirubin [Mass/Vol] 0.4 mg/dL 0.3 - 1 .2 mg/dL [facility] Calcium [Mass/Vol] 9.1 mg/dL 8.6 - 10. 4 mg/dL [facility] Chloride [Moles/Vol] 105 mmol/L 98 - 10 7 mmol/L [facility] CO2 [Moles/Vol] 25 mmol/L 20 - 31 mmol/L [facility] Creatinine [Mass/Vol] 2.78 mg/dL High 0.70 - 1.20 mg/dL [facility] GFR/1.73 sq M.predicted MDRD (S/P/Bld) [Vol rate/Area] 23 mL/min/{1.73_m2} Low - PINF [facility] Comment on above: These results are not [...] 175 mg/dL High 70 - 99 mg/dL [facility] Interpretation and review of laboratory results Abnormal [facility] Potassium [Moles/Vol] 4.5 mmol/L 3.7 - 5.3 mmol/L [facility] Protein [Mass/Vol] 6.8 g/dL 6.4 - 8.3 g/dL [facility] Sodium [Moles/Vol] 139 mmol/L 135 - 144 mmol/L [facility] Urea nitrogen [Mass/Vol] 65 mg/dL High 8 - 23 mg/dL [facility] Urea nitrogen/Creatinine (Bld) [Mass ratio] 23 High 9 - 20 [facility] Basic Metab w/rfx MGon 08-31 Anion gap [Moles/Vol] 7 mmol/L Low 9-17 [facility] Comment on above: Performed By: #### C DP, IPF, BMPX #### [facility] [address] [place] [address] Lock Assembler: Jabari Padgett MD BUN/CRE Ratio 18 Normal 9-20 [facility] Comment on above: Performed By: #### C DP, IPF, BMPX #### [facility] [address] [place] [address] Lock Assembler: Jabari Padgett MD Calcium [Mass/Vol] 8.8 mg/dL Normal 8.6-10.4 [facility] Comment on above: Performed By: #### C DP, IPF, BMPX #### [facility] [address] [place] [address] Lock Assembler: Jabari Padgett MD Chloride [Moles/Vol] 95 mmol/L Low 98-107 [facility] Comment on above: Performed By: #### C DP, IPF, BMPX #### [facility] [address] [place] [address] Lock Assembler: Jabari Padgett MD CO2 [Moles/Vol] 32 mmol/L High 20-31 [facility] Comment on above: Performed By: #### C DEENA IPF, BMPX #### [facility] [address] [place] [address] Lock Assembler: Jabari Padgett MD Creatinine [Mass/Vol] 2.23 mg/dL High 0.70-1.20 [facility] Comment on above: Performed By: #### C DEENA IPF, BMPX #### [facility] [address] [place] [address] Lock Assembler: Jabari Padgett MD GFR/1.73 sq M.predicted among non-blacks MDRD (S/P/Bld) [Vol rate/Area] 30 mL/min/{1.73_m2} Low >60 [facility] Comment on above: Result Comment: These [...] C DEENA IPF, BMPX #### [facility] [address] [place] [address] Lock Assembler: Jabari Padgett MD Glucose [Mass/Vol] 221 mg/dL High 70-99 [facility] Comment on above: Performed By: #### C DEENA IPF, BMPX #### [facility] [address] [place] [address] Lock Assembler: Jabari Padgett MD Potassium [Moles/Vol] 4.2 mmol/L Normal 3.7-5.3 [facility] Comment on above: Performed By: #### C DEENA IPF, BMPX #### [facility] [address] [place] [address] Lock Assembler: Jabari Padgett MD Sodium [Moles/Vol] 134 mmol/L Low 135-144 [facility] Comment on above: Performed By: #### C DP, IPF, BMPX #### [facility] [address] [place], [place] 699[address]83 Lock Assembler: Jabari Padgett MD Urea nitrogen [Mass/Vol] 41 mg/dL High 8-23 [facility] Comment on above: Performed By: #### C DP, IPF, BMPX #### [facility] [address] [place], [facility]83 Lock Assembler: Jabari Padgett MD CBC with Diffon 08-31-2022 Abs. Basophil 0.03 k/uL Normal 0.00-0.20 [facility] Comment on above: Performed By: #### C DP, IPF, BMPX #### [address] [place], [place] 1724783 Lock Assembler: Jabari Padgett MD Abs.Imm.Granulocyte 0.03 k/uL Normal 0.00-0.30 [facility] Comment on above: Performed By: #### C DP, IPF, BMPX #### [address] [place], [place] 5304983 Lock Assembler: Jabari Padgett MD Abs.Neutrophil (Seg) 4.71 k/uL Normal 1.50-8.10 [facility] Comment on above: Performed By: #### C DP, IPF, BMPX #### [facility] [address] [place], [place] 685[address]83 Lock Assembler: Jabari Padgett MD Basophils/100 WBC (Bld) 0 % Normal 0-2 [facility] Comment on above: Performed By: #### C DP, IPF, BMPX #### [facility] [address] [place], [place] 9153583 Lock Assembler: Jabari Padgett MD Eosinophils (Bld) [#/Vol] 0.11 10*3/uL Normal 0.00-0.44 [facility] Comment on above: Performed By: #### C DP, IPF, BMPX #### [facility] [address] [place] [address] Lock Assembler: Jabari Padgett MD Eosinophils/100 WBC (Bld) 2 % Normal 1-4 [facility] Comment on above: Performed By: #### C DP, IPF, BMPX #### [facility] [address] [place] [address] Lock Assembler: Jabari Padgett MD Erythrocyte distribution width (RBC) [Ratio] 12.9 % Normal 11.8-14.4 [facility] Comment on above: Performed By: #### C DP, IPF, BMPX #### [address] [place] [id number] Lock Assembler: Jabari Padgett MD Hematocrit (Bld) [Volume fraction] 37.8 % Low 40.7-50.3 [facility] Comment on above: Performed By: #### C DP, IPF, BMPX #### [address] [place] [address] Lock Assembler: Jabari Padgett MD Hemoglobin (Bld) [Mass/Vol] 13.1 g/dL Normal 13.0-17.0 [facility] Comment on above: Performed By: #### C DP, IPF, BMPX #### [address] [place] [id number] Lock Assembler: Jabari Padgett MD Immature granulocytes/100 WBC (Bld) 0 % Normal 0 [facility] Comment on above: Performed By: #### C DP, IPF, BMPX #### [address] [place] [id number] Lock Assembler: Jabari Padgett MD Lymphocytes (Bld) [#/Vol] 1.59 10*3/uL Normal 1.10-3.70 [facility] Comment on above: Performed By: #### C DP, IPF, BMPX #### [facility] [address] [place], [facility]83 Lock Assembler: Jabari Padgett MD Lymphocytes/100 WBC (Bld) 22 % Low 24-43 [facility] Comment on above: Performed By: #### C DP, IPF, BMPX #### [facility] [address] [place], [facility]83 Lock Assembler: Jabari Padgett MD MCH (RBC) [Entitic mass] 31.3 pg Normal 25.2-33.5 [facility] Comment on above: Performed By: #### C DP, IPF, BMPX #### [address] [place], [facility]83 Lock Assembler: Jabari Padgett MD MCHC (RBC) [Mass/Vol] 34.7 g/dL Normal 28.4-34.8 [facility] Comment on above: Performed By: #### C DP, IPF, BMPX #### [address] [place], [facility]83 Lock Assembler: Jabari Padgett MD MCV (RBC) [Entitic vol] 90.2 fL Normal 82.6-102.9 [facility] Comment on above: Performed By: #### C DP, IPF, BMPX #### [address] [place], [facility]83 Lock Assembler: Jabari Padgett MD Monocytes (Bld) [#/Vol] 0.73 10*3/uL Normal 0.10-1.20 [facility] Comment on above: Performed By: #### C DP, IPF, BMPX #### [facility] [address] [place] [address] Lock Assembler: Jabari Padgett MD Monocytes/100 WBC (Bld) 10 % Normal 3-12 M [facility] Comment on above: Performed By: #### C DP, IPF, BMPX #### [facility] [address] [place], [place] 7950883 Lock Assembler: Jabari Padgett MD Neutrophil (Seg) 66 % High 36-65 [facility] Comment on above: Performed By: #### C DP, IPF, BMPX #### [facility] [address] [place], [facility]83 Lock Assembler: Jabari Padgett MD NRBC Automated 0.0 per 100 WBC Normal 0.0 [facility] Comment on above: Performed By: #### C DP, IPF, BMPX #### [facility] [address] [place], [place] 759[address]83 Lock Assembler: Jabari Padgett MD Platelet Count See Reflexed IPF Result Normal 138-517 [facility] Comment on above: Performed By: #### C DP, IPF, BMPX #### [address] [place], [facility]83 Lock Assembler: Jabari Padgett MD RBC (Bld) [#/Vol] 4.19 10*6/uL Low 4.21-5.77 [facility] Comment on above: Performed By: #### C DP, IPF, BMPX #### [address] [place], [place] [address]981983 Lock Assembler: Jabari Padgett MD WBC (Bld) [#/Vol] 7.2 10*3/uL Normal 3.5-11.3 [facility] Comment on above: Performed By: #### C DP, IPF, BMPX #### [facility] [address] [place], [place] [id number] Lock Assembler: Jabari Padgett MD PLT, Immature Fract.on 08-31 Platelet, Fluoresc. 124 k/uL Low 138-453 [facility] Comment on above: Performed By: #### C DP, IPF, BMPX #### [facility] [address] [place], [place] 00[address]83 Lock Assembler: Jabari Padgett MD PLT, Immature Fract. 3.3 % Normal 1.1-10.3 [facility] Comment on above: Performed By: #### C DP, IPF, BMPX #### [facility] [address] [place], [place] 514[address]83 Lock Assembler: Jabari Padgett MD Basic Metab w/rfx MGon 08-30 Anion gap [Moles/Vol] 9 mmol/L Normal 9-17 [facility] Comment on above: Performed By: #### C DP, BMPX, IPF #### [address] [place], [place] 3386583 Lock Assembler: Jabari Padgett MD BUN/CRE Ratio 17 Normal 9-20 [facility] Comment on above: Performed By: #### C DP, BMPX, IPF #### [address] [place], [place] 069[address]83 Lock Assembler: Jabari Padgett MD Calcium [Mass/Vol] 8.5 mg/dL Low 8.6-10.4 [facility] Comment on above: Performed By: #### C DP, BMPX, IPF #### [address] [place], [place] [address]333383 Lock Assembler: Jabari Padgett MD Chloride [Moles/Vol] 96 mmol/L Low 98-107 [facility] Comment on above: Performed By: #### C DP, BMPX, IPF #### [facility] [address] [place], [place] 7589683 Lock Assembler: Jabari Padgett MD CO2 [Moles/Vol] 29 mmol/L Normal 20-31 [facility] Comment on above: Performed By: #### C DP, BMPX, IPF #### [facility] [address] [place] [address] [place] [address] Lock Assembler: Jabari Padgett MD Creatinine [Mass/Vol] 2.29 mg/dL High 0.70-1.20 [facility] Comment on above: Performed By: #### C DEENA BMPX, IPF #### [facility] [address] [place] [address] Lock Assembler: Jabari Padgett MD GFR/1.73 sq M.predicted among non-blacks MDRD (S/P/Bld) [Vol rate/Area] 29 mL/min/{1.73_m2} Low >60 [facility] Comment on above: Result Comment: These [...] tubular secretion. Performed By: #### C DEENA BMPX, IPF #### [facility] [address] [place] [address] Lock Assembler: Jabari Padgett MD Glucose [Mass/Vol] 244 mg/dL High 70-99 [facility] Comment on above: Performed By: #### C DEENA BMPX, IPF #### [facility] [address] [place] [address] Lock Assembler: Jabari Padgett MD Potassium [Moles/Vol] 4.3 mmol/L Normal 3.7-5.3 [facility] Comment on above: Performed By: #### C DEENA BMPX, IPF #### [facility] [address] [place] [address] Lock Assembler: Jabari Padgett MD Sodium [Moles/Vol] 134 mmol/L Low 135-144 [facility] Comment on above: Performed By: #### C DP BMPX, IPF #### [facility] [address] [place] [address] Lock Assembler: Jabari Padgett MD Urea nitrogen [Mass/Vol] 40 mg/dL High 8-23 [facility] Comment on above: Performed By: #### C DP, BMPX, IPF #### [facility] [address] [place], [facility]83 Lock Assembler: Jabari Padgett MD CBC with Diffon 08-30-2022 Abs. Basophil <0.03 Normal 0.00-0.20 [facility] Comment on above: Performed By: #### C DP, BMPX, IPF #### [facility] [address] [place] [address] Lock Assembler: Jabari Padgett MD Abs.Imm.Granulocyte 0.04 k/uL Normal 0.00-0.30 [facility] Comment on above: Performed By: #### C DP, BMPX, IPF #### [address] [place], [place] [address] Lock Assembler: Jabari Padgett MD Abs.Neutrophil (Seg) 5.56 k/uL Normal 1.50-8.10 [facility] Comment on above: Performed By: #### C DP, BMPX, IPF #### [address] [place] [address] Lock Assembler: Jabari Padgett MD Basophils/100 WBC (Bld) 0 % Normal 0-2 [facility] Comment on above: Performed By: #### C DP, BMPX, IPF #### [address] [place], [place] [id number] Lock Assembler: Jabari Padgett MD Eosinophils (Bld) [#/Vol] 0.06 10*3/uL Normal 0.00-0.44 [facility] Comment on above: Performed By: #### C DP, BMPX, IPF #### [facility] [address] [place] [id number] Lock Assembler: Jabari Padgett MD Eosinophils/100 WBC (Bld) 1 % Normal 1-4 [facility] Comment on above: Performed By: #### C DP, BMPX, IPF #### [facility] [address] [place], [place] [id number] Lock Assembler: Jabari Padgett MD Erythrocyte distribution width (RBC) [Ratio] 12.7 % Normal 11.8-14.4 [facility] Comment on above: Performed By: #### C DP, BMPX, IPF #### [address] [place] [id number] Lock Assembler: Jabari Padgett MD Hematocrit (Bld) [Volume fraction] 36.2 % Low 40.7-50.3 [facility] Comment on above: Performed By: #### C DP, BMPX, IPF #### [facility] [address] [place] [address] Dr. [place], [facility]83 Lock Assembler: Jabari Padgett MD Hemoglobin (Bld) [Mass/Vol] 12.5 g/dL Low 13.0-17.0 [facility] Comment on above: Performed By: #### C DP, BMPX, IPF #### [address] [place], [facility]83 Lock Assembler: Jabari Padgett MD Immature granulocytes/100 WBC (Bld) 1 % High 0 [facility] Comment on above: Performed By: #### C DP, BMPX, IPF #### [facility] [address] [place] [address] [place]. [place], [facility]83 Lock Assembler: Jabari Padgett MD Lymphocytes (Bld) [#/Vol] 1.75 10*3/uL Normal 1.10-3.70 [facility] Comment on above: Performed By: #### C DP, BMPX, IPF #### [address] [place], [facility]83 Lock Assembler: Jabari Padgett MD Lymphocytes/100 WBC (Bld) 22 % Low 24-43 [facility] Comment on above: Performed By: #### C DP, BMPX, IPF #### [facility] [address] [place], [place] [id number] Lock Assembler: Jabari Padgett MD MCH (RBC) [Entitic mass] 30.9 pg Normal 25.2-33.5 [facility] Comment on above: Performed By: #### C DP, BMPX, IPF #### [facility] [address] [place], [place] [id number] Lock Assembler: Jabari Padgett MD MCHC (RBC) [Mass/Vol] 34.5 g/dL Normal 28.4-34.8 [facility] Comment on above: Performed By: #### C DP, BMPX, IPF #### [address] [place], [facility]83 Lock Assembler: Jabari Padgett MD MCV (RBC) [Entitic vol] 89.4 fL Normal 82.6-102.9 [facility] Comment on above: Performed By: #### C DP, BMPX, IPF #### [address] [place], [place] 4161683 Lock Assembler: Jabari Padgett MD Monocytes (Bld) [#/Vol] 0.64 10*3/uL Normal 0.10-1.20 [facility] Comment on above: Performed By: #### C DP, BMPX, IPF #### [facility] [address] [place], [place] [id number] Lock Assembler: Jabari Padgett MD Monocytes/100 WBC (Bld) 8 % Normal 3-12 M [facility] Comment on above: Performed By: #### C DP, BMPX, IPF #### [facility] [address] [place], [place] 7318383 Lock Assembler: Jabari Padgett MD Neutrophil (Seg) 69 % High 36-65 [facility] Comment on above: Performed By: #### C DP, BMPX, IPF #### [facility] [address] [place] [address] Dr[place], [place] 6973983 Lock Assembler: Jabari Padgett MD NRBC Automated 0.0 per 100 WBC Normal 0.0 [facility] Comment on above: Performed By: #### C DP, BMPX, IPF #### [address] [place] [address] Lock Assembler: Jabari Padgett MD Platelet Count See Reflexed IPF Result Normal 138-453 [facility] Comment on above: Performed By: #### C DP, BMPX, IPF #### [address] [place], [place] 9153083 Lock Assembler: Jabari Padgett MD RBC (Bld) [#/Vol] 4.05 10*6/uL Low 4.21-5.77 [facility] Comment on above: Performed By: #### C DP, BMPX, IPF #### [address] [place], [place] [id number] Lock Assembler: Jabari Padgett MD WBC (Bld) [#/Vol] 8.1 10*3/uL Normal 3.5-11.3 [facility] Comment on above: Performed By: #### C DP, BMPX, IPF #### [address] [place], [place] 1103383 Lock Assembler: Jabari Padgett MD PLT, Immature Fract.on 08-30 Platelet, Fluoresc. 141 k/uL Normal 138-453 [facility] Comment on above: Performed By: #### C DP, BMPX, IPF #### [address] [place], [place] 9104483 Lock Assembler: Jabari Padgett MD PLT, Immature Fract. 3.1 % Normal 1.1-10.3 [facility] Comment on above: Performed By: #### C DP, BMPX, IPF #### [facility] [address] [place] [address] Lock Assembler: Jabari Padgett MD [id number] 08-30-2022 SARS-CoV-2 (COVID-19) RNA USHA+probe Ql (Unsp spec) Detected Abnormal NOTDET [facility] Comment on above: Result Comment: Rapid [...] this assay. Fact sheet for Healthcare Providers: https://www.fda.gov/media/985200/download Fact sheet for Patients: https://www.fda.gov/media/331715/download Methodology: Isothermal Nucleic Acid Amplification Results reported to the appropriate Health Department Performed By: #### C DEENA, CP #### [facility] [address] [place] [address] Lock Assembler: Jabari Padgett MD Basic Metab w/rfx MGon 08-29 Anion gap [Moles/Vol] 9 mmol/L Normal 03-30 [facility] Comment on above: Performed By: #### C DP, CP #### [facility] [address] [place] [address] Lock Assembler: Jabari Padgett MD BUN/CRE Ratio 15 Normal 04-02 [facility] Comment on above: Performed By: #### C DP, CP #### [facility] [address] [place] [address] Lock Assembler: Jabari Padgett MD Calcium [Mass/Vol] 8.7 mg/dL Normal 8.6-10.4 [facility] Comment on above: Performed By: #### C DP, CP #### [facility] [address] [place], [place] 6309783 Lock Assembler: Jabari Padgett MD Chloride [Moles/Vol] 99 mmol/L Normal 98-107 [facility] Comment on above: Performed By: #### C DP, CP #### [facility] [address] [place] [address] Lock Assembler: Jabari Padgett MD CO2 [Moles/Vol] 29 mmol/L Normal 20-31 [facility] Comment on above: Performed By: #### C DP, CP #### [facility] [address] [place], [place] 1796083 Lock Assembler: Jabari Padgett MD Creatinine [Mass/Vol] 2.21 mg/dL High 0.70-1.20 [facility] Comment on above: Performed By: #### C DP, CP #### [address] [place] [address] Lock Assembler: Jabari Padgett MD GFR/1.73 sq M.predicted among non-blacks MDRD (S/P/Bld) [Vol rate/Area] 30 mL/min/{1.73_m2} Low >60 [facility] Comment on above: Result Comment: These [...] #### C DP, CP #### [facility] [address] [place] [address] Lock Assembler: Jabari Padgett MD Glucose [Mass/Vol] 167 mg/dL High 70-99 [facility] Comment on above: Performed By: #### C DP, CP #### [facility] [address] [place], [place] 1709783 Lock Assembler: Jabari Padgett MD Potassium [Moles/Vol] 4.6 mmol/L Normal 3.7-5.3 [facility] Comment on above: Performed By: #### C DP, CP #### [facility] [address] [place] [address] Lock Assembler: Jabari Padgett MD Sodium [Moles/Vol] 137 mmol/L Normal 135-144 [facility] Comment on above: Performed By: #### C DP, CP #### [address] [place] [address] Lock Assembler: Jabari Padgett MD Urea nitrogen [Mass/Vol] 33 mg/dL High 8-23 [facility] Comment on above: Performed By: #### C DP, CP #### [address] [place], [place] 4568583 Lock Assembler: Jabari Padgett MD CBC with Diffon 08-29-2022 Abs. Basophil 0.04 k/uL Normal 0.00-0.20 [facility] Comment on above: Performed By: #### B MPX IPF, CDP #### [address] [place] [address] Lock Assembler: Jabari Padgett MD Abs.Imm.Granulocyte 0.04 k/uL Normal 0.00-0.30 [facility] Comment on above: Performed By: #### B AMBERLY MEIER, CDP #### [address] [place], [place] 1262783 Lock Assembler: Jabari Padgett MD Abs.Neutrophil (Seg) 6.05 k/uL Normal 1.50-8.10 [facility] Comment on above: Performed By: #### B MPX, IPF, CDP #### [address] [place] [address] Lock Assembler: Jabari Padgett MD Basophils/100 WBC (Bld) 0 % Normal 0-2 M [facility] Comment on above: Performed By: #### B MPX, IPF, CDP #### [address] [place], [place] 6986883 Lock Assembler: Jabari Padgett MD Eosinophils (Bld) [#/Vol] 0.09 10*3/uL Normal 0.00-0.44 [facility] Comment on above: Performed By: #### B MPX, IPF, CDP #### [address] [place], [place] 7041783 Lock Assembler: Jabari Padgett MD Eosinophils/100 WBC (Bld) 1 % Normal 1-4 [facility] Comment on above: Performed By: #### B MPX, IPF, CDP #### [address] [place], [facility]83 Lock Assembler: Jabari Padgett MD Erythrocyte distribution width (RBC) [Ratio] 13.0 % Normal 11.8-14.4 [facility] Comment on above: Performed By: #### B MPX, IPF, CDP #### [address] [place], [facility]83 Lock Assembler: Jabari Padgett MD Hematocrit (Bld) [Volume fraction] 38.6 % Low 40.7-50.3 [facility] Comment on above: Performed By: #### B MPX, IPF, CDP #### [address] [place] [address] Lock Assembler: Jabari Padgett MD Hemoglobin (Bld) [Mass/Vol] 13.2 g/dL Normal 13.0-17.0 [facility] Comment on above: Performed By: #### B MPX, IPF, CDP #### [facility] [address] [place], [place] 3133883 Lock Assembler: Jabari Padgett MD Immature granulocytes/100 WBC (Bld) 0 % Normal 0 [facility] Comment on above: Performed By: #### B MPX, IPF, CDP #### [facility] [address] [place], [facility]83 Lock Assembler: Jabari Padgett MD Lymphocytes (Bld) [#/Vol] 1.93 10*3/uL Normal 1.10-3.70 [facility] Comment on above: Performed By: #### B MPX, IPF, CDP #### [facility] [address] [place], [facility]83 Lock Assembler: Jabari Padgett MD Lymphocytes/100 WBC (Bld) 21 % Low 24-43 [facility] Comment on above: Performed By: #### B MPX, IPF, CDP #### [address] [place], [facility]83 Lock Assembler: Jabari Padgett MD MCH (RBC) [Entitic mass] 31.3 pg Normal 25.2-33.5 [facility] Comment on above: Performed By: #### B MPX, IPF, CDP #### [address] [place], [facility]83 Lock Assembler: Jabari Padgett MD MCHC (RBC) [Mass/Vol] 34.2 g/dL Normal 28.4-34.8 [facility] Comment on above: Performed By: #### B MPX, IPF, CDP #### [facility] [address] [place] [address] Lock Assembler: Jabari Padgett MD MCV (RBC) [Entitic vol] 91.5 fL Normal 82.6-102.9 M [facility] Comment on above: Performed By: #### B MPX, IPF, CDP #### [facility] [address] [place], [place] 8016383 Lock Assembler: Jabari Padgett MD Monocytes (Bld) [#/Vol] 0.90 10*3/uL Normal 0.10-1.20 [facility] Comment on above: Performed By: #### B MPX, IPF, CDP #### [facility] [address] [place], [place] 6973683 Lock Assembler: Jabari Padgett MD Monocytes/100 WBC (Bld) 10 % Normal 3-12 M [facility] Comment on above: Performed By: #### B MPX, IPF, CDP #### [facility] [address] [place], [place] 4833083 Lock Assembler: Jabari Padgett MD Neutrophil (Seg) 67 % High 36-65 [facility] Comment on above: Performed By: #### B MPX, IPF, CDP #### [facility] [address] [place], [place] 5757783 Lock Assembler: Jabari Padgett MD NRBC Automated 0.0 per 100 WBC Normal 0.0 [facility] Comment on above: Performed By: #### B MPX, IPF, CDP #### [address] [place], [place] 1292583 Lock Assembler: Jabari Padgett MD Platelet Count See Reflexed IPF Result Normal 138-453 [facility] Comment on above: Performed By: #### B MPX, IPF, CDP #### [facility] [address] [place], [place] 8982983 Lock Assembler: Jabari Padgett MD RBC (Bld) [#/Vol] 4.22 10*6/uL Normal 4.21-5.77 [facility] Comment on above: Performed By: #### B MPX, IPF, CDP #### [facility] [address] [place], [place] 6523183 Lock Assembler: Jabari Padgett MD WBC (Bld) [#/Vol] 9.1 10*3/uL Normal 3.5-11.3 [facility] Comment on above: Performed By: #### B MPX, IPF, CDP #### [facility] [address] [place] [address] Lock Assembler: Jabari Padgett MD PLT, Immature Fract.on 08-29 Platelet, Fluoresc. 136 k/uL Low 138-453 [facility] Comment on above: Performed By: #### B MPX, IPF, CDP #### [facility] [address] [place], [place] 5071583 Lock Assembler: Jabari Padgett MD PLT, Immature Fract. 2.5 % Normal 1.1-10.3 [facility] Comment on above: Performed By: #### B MPX, IPF, CDP #### [facility] [address] [place] [address] [place]. [place], [place] [id number] Lock Assembler: Jabari Padgett MD Basic Metab w/rfx MGon 08-28 Anion gap [Moles/Vol] 9 mmol/L Normal 9- [facility] Comment on above: Performed By: #### C DP, CP #### [facility] [address] [place] [address] [place], [place] 3250683 Lock Assembler: Jabari Padgett MD BUN/CRE Ratio 18 Normal 9- [facility] Comment on above: Performed By: #### C DP, CP #### [facility] [address] [place], [place] 9855083 Lock Assembler: Jabari Padgett MD Calcium [Mass/Vol] 9.1 mg/dL Normal 8.6-10.4 [facility] Comment on above: Performed By: #### C DP, CP #### [facility] [address] [place], [place] 6916583 Lock Assembler: Jabari Padgett MD Chloride [Moles/Vol] 104 mmol/L Normal 98-107 [facility] Comment on above: Performed By: #### C DP, CP #### [facility] [address] [place] [address] Lock Assembler: Jabari Padgett MD CO2 [Moles/Vol] 24 mmol/L Normal 20-31 [facility] Comment on above: Performed By: #### C DP, CP #### [facility] [address] [place] [address] Lock Assembler: Jabari Padgett MD Creatinine [Mass/Vol] 1.97 mg/dL High 0.70-1.20 [facility] Comment on above: Performed By: #### C DP, CP #### [facility] [address] [place] [address] Lock Assembler: Jabari Padgett MD GFR/1.73 sq M.predicted among non-blacks MDRD (S/P/Bld) [Vol rate/Area] 34 mL/min/{1.73_m2} Low >60 [facility] Comment on above: Result Comment: These [...] #### C DP, CP #### [facility] [address] [place] [address] Lock Assembler: Jabari Padgett MD Glucose [Mass/Vol] 150 mg/dL High 70-99 [facility] Comment on above: Performed By: #### C DP, CP #### [facility] [address] [place] [address] Lock Assembler: Jabari Padgett MD Potassium [Moles/Vol] 4.3 mmol/L Normal 3.7-5.3 [facility] Comment on above: Performed By: #### C DP, CP #### [facility] [address] [place], [place] 5126283 Lock Assembler: Jabari Padgett MD Sodium [Moles/Vol] 137 mmol/L Normal 135-144 [facility] Comment on above: Performed By: #### C DP, CP #### [facility] [address] [place], [facility]83 Lock Assembler: Jabari Padgett MD Urea nitrogen [Mass/Vol] 35 mg/dL High 8-23 [facility] Comment on above: Performed By: #### C DP, CP #### [address] [place], [facility]83 Lock Assembler: Jabari Padgett MD CBC with Diffon 08-28-2022 Abs. Basophil 0.03 k/uL Normal 0.00-0.20 [facility] Comment on above: Performed By: #### C DP, CP #### [address] [place], [facility]83 Lock Assembler: Jabari Padgett MD Abs.Imm.Granulocyte <0.03 Normal 0.00-0.30 [facility] Comment on above: Performed By: #### C DP, CP #### [facility] [address] [place] [address] [place], [place] 1118983 Lock Assembler: Jabari Padgett MD Abs.Neutrophil (Seg) 5.01 k/uL Normal 1.50-8.10 [facility] Comment on above: Performed By: #### C DP, CP #### [address] [place] [address] Lock Assembler: Jabari Padgett MD Basophils/100 WBC (Bld) 0 % Normal 0-2 M [facility] Comment on above: Performed By: #### C DP, CP #### [facility] [address] [place], [place] [id number] Lock Assembler: Jabari Padgett MD Eosinophils (Bld) [#/Vol] 0.12 10*3/uL Normal 0.00-0.44 [facility] Comment on above: Performed By: #### C DP, CP #### [facility] [address] [place], [facility]83 Lock Assembler: Jabari Padgett MD Eosinophils/100 WBC (Bld) 2 % Normal 1-4 [facility] Comment on above: Performed By: #### C DP, CP #### [address] [place], [facility]83 Lock Assembler: Jabari Padgett MD Erythrocyte distribution width (RBC) [Ratio] 13.0 % Normal 11.8-14.4 [facility] Comment on above: Performed By: #### C DP, CP #### [address] [place], [facility]83 Lock Assembler: Jabari Padgett MD Hematocrit (Bld) [Volume fraction] 38.9 % Low 40.7-50.3 [facility] Comment on above: Performed By: #### C DP, CP #### [address] [place], [facility]83 Lock Assembler: Jabari Padgett MD Hemoglobin (Bld) [Mass/Vol] 13.6 g/dL Normal 13.0-17.0 [facility] Comment on above: Performed By: #### C DP, CP #### [address] [place] [address] Lock Assembler: Jabari Padgett MD Immature granulocytes/100 WBC (Bld) 0 % Normal 0 [facility] Comment on above: Performed By: #### C DP, CP #### [address] [place], [facility]83 Lock Assembler: Jabari Padgett MD Lymphocytes (Bld) [#/Vol] 1.86 10*3/uL Normal 1.10-3.70 [facility] Comment on above: Performed By: #### C DP, CP #### [address] [place], [place] 0533583 Lock Assembler: Jabari Padgett MD Lymphocytes/100 WBC (Bld) 23 % Low 24-43 [facility] Comment on above: Performed By: #### C DP, CP #### [facility] [address] [place] [address] [place], [place] [address] Lock Assembler: Jabari Padgett MD MCH (RBC) [Entitic mass] 32.1 pg Normal 25.2-33.5 [facility] Comment on above: Performed By: #### C DP, CP #### [address] [place], [place] [address] Lock Assembler: Jabari Padgett MD MCHC (RBC) [Mass/Vol] 35.0 g/dL High 28.4-34.8 [facility] Comment on above: Performed By: #### C DP, CP #### [address] [place], [facility]83 Lock Assembler: Jabari Padgett MD MCV (RBC) [Entitic vol] 91.7 fL Normal 82.6-102.9 M [facility] Comment on above: Performed By: #### C DP, CP #### [address] [place] [address] Lock Assembler: Jabari Padgett MD Monocytes (Bld) [#/Vol] 0.92 10*3/uL Normal 0.10-1.20 [facility] Comment on above: Performed By: #### C DP, CP #### [address] [place] [address] Lock Assembler: Jabari Padgett MD Monocytes/100 WBC (Bld) 12 % Normal 3-12 M [facility] Comment on above: Performed By: #### C DP, CP #### [facility] [address] [place], [place] 9238983 Lock Assembler: Jabari Padgett MD Neutrophil (Seg) 63 % Normal 36-65 [facility] Comment on above: Performed By: #### C DP, CP #### [facility] [address] [place], [place] 9367583 Lock Assembler: Jabari aPdgett MD NRBC Automated 0.0 per 100 WBC Normal 0.0 [facility] Comment on above: Performed By: #### C DP, CP #### [facility] [address] [place], [place] 2910883 Lock Assembler: Jabari Padgett MD Platelet Count See Reflexed IPF Result Normal 138-453 [facility] Comment on above: Performed By: #### C DP, CP #### [facility] [address] [place], [place] 2797383 Lock Assembler: Jabari Padgett MD RBC (Bld) [#/Vol] 4.24 10*6/uL Normal 4.21-5.77 [facility] Comment on above: Performed By: #### C DP, CP #### [address] [place], [place] 2038983 Lock Assembler: Jabari Padgett MD WBC (Bld) [#/Vol] 8.0 10*3/uL Normal 3.5-11.3 [facility] Comment on above: Performed By: #### C DP, CP #### [facility] [address] [place] [address] [place] [address] Lock Assembler: Jabari Padgett MD Hemoglobin A1Con 08-28-2022 Glucose [Mass/Vol] 240 mg/dL Normal [facility] Comment on above: Result Comment: The ADA and AACC recommend providing the estimated average glucose result to permit better patient understanding of their HBA1c result. Performed By: #### C DP, CP #### [facility] [address] [place], [place] 1991883 Lock Assembler: Jabari Padgett MD HbA1c (Bld) [Mass fraction] 10.0 % High 4.0-6.0 [facility] Comment on above: Performed By: #### C DP, CP #### [facility] [address] [place], [place] 6961083 Lock Assembler: Jabari Padgett MD PLT, Immature Fract.on 08-28 Platelet, Fluoresc. 142 k/uL Normal 138-453 [facility] Comment on above: Performed By: #### C DP, CP #### [facility] [address] [place], [place] 4475883 Lock Assembler: Jabari Padgett MD PLT, Immature Fract. 2.0 % Normal 1.1-10.3 [facility] Comment on above: Performed By: #### C DP, CP #### [facility] [address] [place], [place] 9546183 Lock Assembler: Jabari Padgett MD Basic Metabolic Profon 08-27 Anion gap [Moles/Vol] 11 mmol/L Normal 9-17 [facility] Comment on above: Performed By: #### C DP IPF, BMPX #### [facility] [address] [place], [place] 5777183 Lock Assembler: Jabari Padgett MD BUN/CRE Ratio 17 Normal 9-20 [facility] Comment on above: Performed By: #### C DP IPF, BMPX #### [facility] [address] [place] [address] Lock Assembler: Jabari Padgett MD Calcium [Mass/Vol] 9.2 mg/dL Normal 8.6-10.4 [facility] Comment on above: Performed By: #### C DP IPF, BMPX #### [facility] [address] [place], [place] 1770183 Lock Assembler: Jabari Padgett MD Chloride [Moles/Vol] 98 mmol/L Normal 98-107 [facility] Comment on above: Performed By: #### C DP, IPF, BMPX #### [facility] [address] [place] [address] Lock Assembler: Jabari Padgett MD CO2 [Moles/Vol] 25 mmol/L Normal 20-31 [facility] Comment on above: Performed By: #### C DP, IPF, BMPX #### [facility] [address] [place], [place] 9937683 Lock Assembler: Jabari Padgett MD Creatinine [Mass/Vol] 2.37 mg/dL High 0.70-1.20 [facility] Comment on above: Performed By: #### C DP IPF, BMPX #### [facility] [address] [place] [address] Lock Assembler: Jabari Padgett MD GFR/1.73 sq M.predicted among non-blacks MDRD (S/P/Bld) [Vol rate/Area] 28 mL/min/{1.73_m2} Low >60 [facility] Comment on above: Result Comment: These [...] C DP, IPF, BMPX #### [facility] [address] [place] [address] Lock Assembler: Jabari Padgett MD Glucose [Mass/Vol] 247 mg/dL High 70-99 [facility] Comment on above: Performed By: #### C DP, IPF, BMPX #### [facility] [address] [place], [place] 1162383 Lock Assembler: Jabari Padgett MD Potassium [Moles/Vol] 4.8 mmol/L Normal 3.7-5.3 [facility] Comment on above: Performed By: #### C DP, IPF, BMPX #### [address] [place], [facility]83 Lock Assembler: Jabari Padgett MD Sodium [Moles/Vol] 134 mmol/L Low 135-144 [facility] Comment on above: Performed By: #### C DP, IPF, BMPX #### [address] [place], [facility]83 Lock Assembler: Jabari Padgett MD Urea nitrogen [Mass/Vol] 41 mg/dL High 8-23 [facility] Comment on above: Performed By: #### C DP, IPF, BMPX #### [address] [place], [facility]83 Lock Assembler: Jabari Padgett MD CBC with Diffon 08-27-2022 Abs. Basophil 0.03 k/uL Normal 0.00-0.20 [facility] Comment on above: Performed By: #### C DP, IPF, BMPX #### [address] [place], [facility]83 Lock Assembler: Jabari Padgett MD Abs.Imm.Granulocyte 0.04 k/uL Normal 0.00-0.30 [facility] Comment on above: Performed By: #### C DP, IPF, BMPX #### [address] [place], [place] 1120383 Lock Assembler: Jabari Padgett MD Abs.Neutrophil (Seg) 6.39 k/uL Normal 1.50-8.10 [facility] Comment on above: Performed By: #### C DP, IPF, BMPX #### [address] [place], [place] 5681383 Lock Assembler: Jabari Padgett MD Basophils/100 WBC (Bld) 0 % Normal 0-2 M [facility] Comment on above: Performed By: #### C DP, IPF, BMPX #### [address] [place], [place] 6461983 Lock Assembler: Jabari Padgett MD Eosinophils (Bld) [#/Vol] 0.09 10*3/uL Normal 0.00-0.44 [facility] Comment on above: Performed By: #### C DP, IPF, BMPX #### [address] [place] [id number] Lock Assembler: Jabari Padgett MD Eosinophils/100 WBC (Bld) 1 % Normal 1-4 [facility] Comment on above: Performed By: #### C DP, IPF, BMPX #### [address] [place] [id number] Lock Assembler: Jabari Padgett MD Erythrocyte distribution width (RBC) [Ratio] 12.9 % Normal 11.8-14.4 [facility] Comment on above: Performed By: #### C DP, IPF, BMPX #### [address] [place] [id number] Lock Assembler: Jabari Padgett MD Hematocrit (Bld) [Volume fraction] 38.4 % Low 40.7-50.3 [facility] Comment on above: Performed By: #### C DP, IPF, BMPX #### [address] [place] [address] Lock Assembler: Jabari Padgett MD Hemoglobin (Bld) [Mass/Vol] 13.6 g/dL Normal 13.0-17.0 [facility] Comment on above: Performed By: #### C DP, IPF, BMPX #### [address] aYp [facility]83 Lock Assembler: Jabari Padgett MD Immature granulocytes/100 WBC (Bld) 0 % Normal 0 [facility] Comment on above: Performed By: #### C DP, IPF, BMPX #### [facility] [address] [place], [facility]83 Lock Assembler: Jabari Padgett MD Lymphocytes (Bld) [#/Vol] 2.20 10*3/uL Normal 1.10-3.70 [facility] Comment on above: Performed By: #### C DP, IPF, BMPX #### [address] [place] [address] Lock Assembler: Jabari Padgett MD Lymphocytes/100 WBC (Bld) 23 % Low 24-43 [facility] Comment on above: Performed By: #### C DP, IPF, BMPX #### [address] [place], [facility]83 Lock Assembler: Jabari Padgett MD MCH (RBC) [Entitic mass] 31.9 pg Normal 25.2-33.5 [facility] Comment on above: Performed By: #### C DP, IPF, BMPX #### [address] [place] [id number] Lock Assembler: Jabari Padgett MD MCHC (RBC) [Mass/Vol] 35.4 g/dL High 28.4-34.8 [facility] Comment on above: Performed By: #### C DP, IPF, BMPX #### [address] [place], [facility]83 Lock Assembler: Jabari Padgett MD MCV (RBC) [Entitic vol] 90.1 fL Normal 82.6-102.9 M [facility] Comment on above: Performed By: #### C DP, IPF, BMPX #### [address] [place] [facility]39 Lock Assembler: Jabari Padgett MD Monocytes (Bld) [#/Vol] 0.82 10*3/uL Normal 0.10-1.20 [facility] Comment on above: Performed By: #### C DP, IPF, BMPX #### [facility] [address] [place] [address] Lock Assembler: Jabari Padgett MD Monocytes/100 WBC (Bld) 9 % Normal 3-12 M [facility] Comment on above: Performed By: #### C DP, IPF, BMPX #### [facility] [address] [place], [place] [id number] Lock Assembler: Jabari Padgett MD Neutrophil (Seg) 67 % High 36-65 [facility] Comment on above: Performed By: #### C DP, IPF, BMPX #### [facility] [address] [place], [facility]83 Lock Assembler: Jabari Padgett MD NRBC Automated 0.0 per 100 WBC Normal 0.0 [facility] Comment on above: Performed By: #### C DP, IPF, BMPX #### [address] [place], [place] [id number] Lock Assembler: Jabari Padgett MD Platelet mean volume (Bld) [Entitic vol] 10.1 fL Normal 8.1-13.5 [facility] Comment on above: Performed By: #### C DP, IPF, BMPX #### [facility] [address] [place] [address] Lock Assembler: Jabari Padgett MD Platelets (Bld) [#/Vol] 157 10*3/uL Normal 138-453 [facility] Comment on above: Performed By: #### C DP, IPF, BMPX #### [facility] [address] [place], [place] [id number] Lock Assembler: Jabari Padgett MD RBC (Bld) [#/Vol] 4.26 10*6/uL Normal 4.21-5.77 [facility] Comment on above: Performed By: #### C DEENA IPF, BMPX #### [facility] [address] [place], [place] [id number] Lock Assembler: Jabari Padgett MD WBC (Bld) [#/Vol] 9.6 10*3/uL Normal 3.5-11.3 [facility] Comment on above: Performed By: #### C DP, IPF, BMPX #### [facility] [address] [place] [address] Lock Assembler: Jabari Padgett MD CT ABDOMEN PELVIS WO [...] Michael Williamson MD 08/27/22 Final result Normal [facility] UA w/Reflex Cultureon 2022 Bilirubin, SemiQt,Ur Negative Normal NEG [facility] Comment on above: Performed By: #### C DP, CP #### [facility] [address] [place] [address] [place] [address] Lock Assembler: Jabari Padgett MD Blood, Urine Negative Normal NEG [facility] Comment on above: Performed By: #### C DP, CP #### [address] [place], [place] [id number] Lock Assembler: Jabari Padgett MD Clarity (U) Clear Normal CLEAR [facility] Comment on above: Performed By: #### C DP, CP #### [facility] [address] [place] [address] [place] [address] Lock Assembler: Jabari Padgett MD Color (U) Yellow Normal YEL [facility] Comment on above: Performed By: #### C DP, CP #### [facility] [address] [place] [address] [place] [address] Lock Assembler: Jabari Padgett MD Glucose Ql (U) 2+ Abnormal NEG [facility] Comment on above: Performed By: #### C DP, CP #### [facility] [address] [place], [place] [id number] Lock Assembler: Jabari Padgett MD Ketones Ql (U) Negative Normal NEG [facility] Comment on above: Performed By: #### C DP, CP #### [facility] [address] [place] [address] Dr. [place], [place] [id number] Lock Assembler: Jabari Padgett MD Leukocyte esterase Test strip Ql (U) Negative Normal NEG [facility] Comment on above: Performed By: #### C DP, CP #### [facility] [address] [place], [place] [address] Lock Assembler: Jabari Padgett MD Nitrite,Ur Negative Normal NEG [facility] Comment on above: Performed By: #### C DP, CP #### [facility] [address] [place], [place] [address] Lock Assembler: Jabari Padgett MD PH,Ur 7.0 Normal 5.0-9.0 [facility] Comment on above: Performed By: #### C DP, CP #### [address] [place], [place] [address] Lock Assembler: Jabari Padgett MD Protein Ql (U) 2+ Abnormal NEG [facility] Comment on above: Performed By: #### C DP, CP #### [facility] [address] [place] [address] Dr. [place], [place] [address] Lock Assembler: Jabari Padgett MD Spec. [place],Ur 1.015 Normal 1.010-1.020 [facility] Comment on above: Performed By: #### C DP, CP #### [address] [place], [facility]83 Lock Assembler: Jabari Padgett MD Urobilinogen,Ur Normal Normal NORM [facility] Comment on above: Performed By: #### C DP, CP #### [facility] [address] [place] [address] Dr. [place], [facility]83 Lock Assembler: Jabari Padgett MD Urinalysis,Microon 3 Bacteria TRACE Abnormal NONE [facility] Comment on above: Performed By: #### C DP, IPF, BMPX #### [facility] [address] [place] [address] Lock Assembler: Jabari Padgett MD Epithelial cells LM Ql (Urine sed) 2 TO 5 Normal 0-5 [facility] Comment on above: Performed By: #### C DP, IPF, BMPX #### [facility] [address] [place], [place] [id number] Lock Assembler: Jabari Padgett MD Mucus Strands TRACE Abnormal NONE [facility] Comment on above: Performed By: #### C DP, IPF, BMPX #### [facility] [address] [place], [place] [id number] Lock Assembler: Jabari Padgett MD Urine RBC's None Normal 0-2 [facility] Comment on above: Performed By: #### C DP, IPF, BMPX #### [facility] [address] [place], [place] 908[address]83 Lock Assembler: Jabari Padgett MD Urine WBC's None Normal 0-5 [facility] Comment on above: Performed By: #### C DP, IPF, BMPX #### [facility] [address] [place], [facility]83 Lock Assembler: Jabari Padgett MD XR HIP 2-3 VW [...] Elton Walters MD 08/27/22 Final result Normal [facility] BILIRUBIN CONJUGATED (DIRECT )on 07-27-2022 BILI, CONJUGATED 0.2 mg/dL Normal 0.0-0.2 [facility] Comment on above: Performed By: #### D SHARIFA, TSH #### [facility] [address] [address] [address] Gallo Infante FREE T4on 07-27-2022 Free T4 [Mass/Vol] 1.11 ng/dL Normal 0.76-1.46 [facility] Comment on above: Performed By: #### F T4 #### [facility] [address] [address] [address] Gallo Infante LIPID PROFILEon 07-27-2022 CHOL-HDL RATIO NORM SEE BELOW Normal [facility] Comment on above: Result Comment: 3.3 - 4.4 LOW RISK 4.4 - 7.1 AVERAGE RISK 7.1 - 11.0 MODERATE RISK >11.0 HIGH RISK Performed By: #### D SHARIFA, TSH #### [facility] [address] [address] [address] Gallo Infante Cholesterol [Mass/Vol] 102 mg/dL Normal <=200 [facility] Comment on above: Performed By: #### D SHARIFA, TSH #### [facility] [address] [address] [address] Gallo Infante Cholesterol in HDL [Mass/Vol] 45 mg/dL Normal 40-60 [facility] Comment on above: Performed By: #### D SHARIFA, TSH #### [facility] [address] [address] [address] Gallo Infante Cholesterol in LDL [Mass/Vol] 40.2 mg/dL Normal [facility] Comment on above: Performed By: #### D SHARIFA, TSH #### [facility] [address] [address] [address] Gallo Infante Cholesterol.total/Blanche sterol in HDL [Mass ratio] 2.3 {ratio} Normal [facility] Comment on above: Performed By: #### D SHARIFA, TSH #### [facility] [address] [address] [address] Gallo Infante HDL NORMAL > or = 60 mg/dl - LO W CARDIOVASCULAR RISK <40 mg/dl - HIGH CARDIOVASCULAR RISK Normal [facility] Comment on above: Performed By: #### D SHARIFA, TSH #### [facility] [address] [address] [address] Gallo Infante LDL CALC NORMAL SEE BELOW Normal [facility] Comment on above: Result Comment: <100 mg/dl OPTIMAL 100 - 129 mg/dl NEAR OR ABOVE OPTIMAL 130 - 159 mg/dl BORDERLINE HIGH 160 - 189 mg/dl HIGH >190 mg/dl VERY HIGH Performed By: #### D SHARIFA, TSH #### [facility] [address] [address] [address] Gallo Infante Triglyceride [Mass/Vol] 84 mg/dL Normal <=150 T [facility] Comment on above: Performed By: #### D SHARIFA, TSH #### [facility] [address] [place] [address] Dr. Gallo Infante VLDL CALC 16.8 mg/dL Normal [facility] Comment on above: Performed By: #### D SHARIFA, TSH #### [facility] [address] [address] [address] Gallo Infante PROF 14(COMP METB)on 023 Albumin [Mass/Vol] 2.9 g/dL Critically low 3.4-5.0 Th [facility] Comment on above: Performed By: #### D SHARIFA, TSH #### [facility] [address] [place] [address] Dr. Gallo Infante Albumin/Globulin [Mass ratio] 0.6 {ratio} Normal [facility] Comment on above: Performed By: #### D SHARIFA, TSH #### [facility] [address] [place] [address] Dr. Gallo Infante ALP [Catalytic activity/Vol] 119 U/L Critically high 46-116 [facility] Comment on above: Performed By: #### D SHARIFA, TSH #### [facility] [address] [place] [address] Dr. Gallo Infante ALT [Catalytic activity/Vol] 29 U/L Normal 16-63 [facility] Comment on above: Performed By: #### D SHARIFA, TSH #### [facility] [address] [address] [address] aGllo Infante Anion gap [Moles/Vol] 10.1 mmol/L Normal Th [facility] Comment on above: Performed By: #### D SHARIFA, TSH #### [facility] [address] [address] [address] Gallo Infante AST [Catalytic activity/Vol] 21 U/L Normal 15-37 [facility] Comment on above: Performed By: #### D SHARIFA, TSH #### [facility] [address] [address] [address] Gallo Infante Bilirubin [Mass/Vol] 0.4 mg/dL Normal 0.2-1.0 [facility] Comment on above: Performed By: #### D SHARIFA, TSH #### [facility] [address] [place] [address] Dr. Gallo Infante Calcium [Mass/Vol] 8.8 mg/dL Normal 8.5-10.1 [facility] Comment on above: Performed By: #### D SHARIFA, TSH #### [facility] [address] [place] [address] Dr. Gallo Infante Chloride [Moles/Vol] 102 mmol/L Normal 98-107 [facility] Comment on above: Performed By: #### D SHARIFA, TSH #### [facility] [address] [place] [address] Dr. Gallo Infante CO2 [Moles/Vol] 31.3 mmol/L Normal 21.0-32.0 [facility] Comment on above: Performed By: #### D SHARIFA, TSH #### [facility] [address] [place] [address] Dr. Gallo Infante Creatinine [Mass/Vol] 2.37 mg/dL Critically high 0.70-1.30 [facility] Comment on above: Performed By: #### D SHARIFA, TSH #### [facility] [address] [place] [address] Dr. Gallo Infante EGFR-AF MICRONESIAN 32 mL/min/1.73m2 Critically low >=60 [facility] Comment on above: Performed By: #### D SHARIFA, TSH #### [facility] [address] [address] [address] Gallo Infante EGFR-NON AF MICRONESIAN 27 mL/min/1.73m2 Critically low >=60 [facility] Comment on above: Performed By: #### D SHARIFA, TSH #### [facility] [address] [address] [address] Gallo Infante Globulin (S) [Mass/Vol] 4.5 g/dL Normal [facility] Comment on above: Performed By: #### D SHARIFA, TSH #### [facility] [address] [address] [address] Gallo Infante Glucose [Mass/Vol] 156 mg/dL Critically high 74-106 [facility] Comment on above: Performed By: #### D SHARIFA, TSH #### [facility] [address] [address] [address] Gallo Infante Potassium [Moles/Vol] 4.4 mmol/L Normal 3.5-5.1 [facility] Comment on above: Performed By: #### D SHARIFA, TSH #### [facility] [address] [address] [address] Gallo Infante Protein [Mass/Vol] 7.4 g/dL Normal 6.4-8.2 [facility] Comment on above: Performed By: #### D SHARIFA, TSH #### [facility] [address] [address] [address] Gallo Infante Sodium [Moles/Vol] 139 mmol/L Normal 136-145 [facility] Comment on above: Performed By: #### D SHARIFA, TSH #### [facility] [address] [address] [address] Gallo Infante Urea nitrogen [Mass/Vol] 46.0 mg/dL Critically high 7.0-18.0 [facility] Comment on above: Performed By: #### D SHARIFA, TSH #### [facility] [address] [address] [address] Gallo Infante Urea nitrogen/Creatinine [Mass ratio] 19.4 mg/mg Normal [facility] Comment on above: Performed By: #### D SHARIFA, TSH #### [facility] [address] [place] [address] Dr. Gallo Infante TSHon 07-27-2022 TSH 0.887 uIU/mL Normal 0.358-3.740 [facility] Comment on above: Performed By: #### D SHARIFA, TSH #### [facility] [address] [place] [address] Dr. Gallo Infante VITAMIN B12on 07-27-2022 Cobalamin (Vitamin B12) [Mass/Vol] 1205.0 pg/mL Critically high 193.0-986.0 [facility] Comment on above: Performed By: #### D SHAIRFA, TSH #### [facility] [address] [place] [address] Dr. Gallo Infante PROTEIN AND CREA RANDOM UR R ATIOon 04-17-2022 Creatinine, Urine 50.8 mg/dL Normal Not Estab. [facility] Comment on above: Performed By: #### D SHARIFA, TSH #### [facility] [address] [place] [address] Dr. Gallo Infante Protein (U) [Mass/Vol] 51.0 mg/dL Normal Not Estab. [facility] Comment on above: Performed By: #### D SHARIFA, TSH #### [facility] [address] [place] [address] Dr. Gallo Infante Protein/Creat Ratio 1004 mg/g creat Critically high 0-200 [facility] Comment on above: Performed By: #### D SHARIFA, TSH #### [facility] [address] [place] [address] Dr. Gallo Infante PTH INTACTon 04-17-2022 PTH, Intact 42 pg/mL Normal 15-65 [facility] Comment on above: Performed By: #### D SHARIFA, TSH #### [facility] [address] [place] [address] Dr. Gallo Infante ALBUMINon 04-16-2022 Albumin [Mass/Vol] 3.3 g/dL Critically low 3.4-5.0 [facility] Comment on above: Performed By: #### D SHARIFA, TSH #### [facility] [address] [place] [address] Dr. Gallo Infante HEMOGLOBINon 04-16-2022 Hemoglobin (Bld) [Mass/Vol] 13.3 g/dL Critically low 14.0-18.0 [facility] Comment on above: Performed By: #### D SHARIFA, TSH #### [facility] [address] [place] [address] Dr. Gallo Infante MAGNESIUMon 04-16-2022 Magnesium [Mass/Vol] 2.0 mg/dL Normal 1.8-2.4 [facility] Comment on above: Performed By: #### D SHARIFA, TSH #### [facility] [address] [place] [address] Dr. Gallo Infante PHOSPHORUSon 04-16-2022 Phosphate [Mass/Vol] 4.0 mg/dL Normal 2.6-4.7 [facility] Comment on above: Performed By: #### Shira SKAGGS, TSH #### [facility] [address] [place] [address] Dr. Gallo Infante PROF CHEM 8 (BAS METB)on Anion gap [Moles/Vol] 7.9 mmol/L Normal [facility] Comment on above: Performed By: #### Shira SHARIFA, TSH #### [facility] [address] [place] [address] Dr. Gallo Infante Calcium [Mass/Vol] 8.9 mg/dL Normal 8.5-10.1 [facility] Comment on above: Performed By: #### Shira SHARIFA, TSH #### [facility] [address] [place] [address] Dr. Gallo Infante Chloride [Moles/Vol] 102 mmol/L Normal 98-107 [facility] Comment on above: Performed By: #### D SHARIFA, TSH #### [facility] [address] [place] [address] Dr. Gallo Infante CO2 [Moles/Vol] 30.0 mmol/L Normal 21.0-32.0 [facility] Comment on above: Performed By: #### Shira SHARIFA, TSH #### [facility] [address] [address] [address] Gallo Infante Creatinine [Mass/Vol] 2.47 mg/dL Critically high 0.70-1.30 [facility] Comment on above: Performed By: #### D SHARIFA, TSH #### [facility] [address] [address] [address] Gallo Infante EGFR-AF MICRONESIAN 31 mL/min/1.73m2 Critically low >=60 [facility] Comment on above: Performed By: #### D SHARIFA, TSH #### [facility] [address] [address] [address] Gallo Infante EGFR-NON AF MICRONESIAN 26 mL/min/1.73m2 Critically low >=60 [facility] Comment on above: Performed By: #### D SHARIFA, TSH #### [facility] [address] [address] [address] Gallo Infante Glucose [Mass/Vol] 247 mg/dL Critically high 74-106 T [facility] Comment on above: Performed By: #### D SHARIFA, TSH #### [facility] [address] [address] [address] Gallo Infante Potassium [Moles/Vol] 3.9 mmol/L Normal 3.5-5.1 [facility] Comment on above: Performed By: #### D SHARIFA, TSH #### [facility] [address] [address] [address] Gallo Infante Sodium [Moles/Vol] 136 mmol/L Normal 136-145 [facility] Comment on above: Performed By: #### D SHARIFA, TSH #### [facility] [address] [address] [address] Gallo Infante Urea nitrogen [Mass/Vol] 45.0 mg/dL Critically high 7.0-18.0 [facility] Comment on above: Performed By: #### D SHARIFA, TSH #### [facility] [address] [address] [address] Gallo Infante Urea nitrogen/Creatinine [Mass ratio] 18.2 mg/mg Normal [facility] Comment on above: Performed By: #### D SHARIFA, TSH #### [facility] [address] [address] [address] Gallo Infante VITAMIN D 25 OHon 04-16-2022 VIT D 25-OH 39.4 ng/mL Normal [facility] Comment on above: Performed By: #### D SHARIFA, TSH #### [facility] [address] [address] [address] Gallo Infante VIT D RANGES SEE BELOW Normal [facility] Comment on above: Result Comment: <20 ng/mL Vit D deficient 20 - <30 ng/mL Vit D insufficient 30 - 100 ng/mL Vit D sufficient >100 ng/mL Potential Toxicity Performed By: #### D SHARIFA, TSH #### [facility] [address] [address] [address] Gallo Infante CBC W/DIFFon 02-20-2022 ABS IMM GRANS 0.0 10*3/uL Normal 0.0-0.2 [facility] Comment on above: Performed By: #### 3 156, , 82032 #### [facility] [address] [place] [address], [place] ABS NEUTROPHILS 4.6 10*3/uL Normal 1.6-7.6 [facility] Comment on above: Performed By: #### 3 156, , 40076 #### [facility] [address] [place] [address], [place] Basophils (Bld) [#/Vol] 0.0 10*3/uL Normal 0.0-0.2 [facility] Comment on above: Performed By: #### 3 156, , 02224 #### [facility] [address] [place] [address], [place] Basophils/100 WBC (Bld) 0.5 % Normal 0.0-1.0 T [facility] Comment on above: Performed By: #### 3 156, , 65798 #### [facility] [address] [place] [address], [place] Eosinophils (Bld) [#/Vol] 0.2 10*3/uL Normal 0.0-0.5 [facility] Comment on above: Performed By: #### 3 156, , 36103 #### [facility] [address] [place] [address], [facility] Eosinophils/100 WBC (Bld) 2.6 % Normal 0.0-6.0 [facility] Comment on above: Performed By: #### 3 156, , 12968 #### [facility] [address] Erythrocyte distribution width (RBC) [Ratio] 13.1 % Normal 11.5-15.0 [facility] Comment on above: Performed By: #### 3 1568, , 98195 #### [facility] [address] Hematocrit (Bld) [Volume fraction] 41.2 % Normal 39.0-50.0 [facility] Comment on above: Performed By: #### 3 1568, , 93457 #### [facility] [address] [facility]. [address] Hemoglobin (Bld) [Mass/Vol] 14.2 g/dL Normal 13.0-17.0 [facility] Comment on above: Performed By: #### 3 1568, , 24106 #### [facility] [address] [facility] [place] [place] [address], [facility] IMMATURE GRANS 0.3 % Normal 0.0-1.0 [facility] Comment on above: Performed By: #### 3 1568, , 19695 #### [facility] [address] [facility] [place] [place] [address], [facility] Lymphocytes (Bld) [#/Vol] 2.1 10*3/uL Normal 1.2-4.0 [facility] Comment on above: Performed By: #### 3 156, , 81490 #### [facility] [address] [place] [id number], [facility] Lymphocytes/100 WBC (Bld) 27.6 % Normal 20.0-45.0 [facility] Comment on above: Performed By: #### 3 156, , 93179 #### [facility] [address] [place] [address], [facility] MCH (RBC) [Entitic mass] 30.5 pg Normal 27.0-33.0 [facility] Comment on above: Performed By: #### 3 1568, , 18954 #### [facility] [address] [place] [id number], [facility] MCHC (RBC) [Mass/Vol] 34.5 g/dL Normal 32.0-35.0 [facility] Comment on above: Performed By: #### 3 1568, , 06890 #### [facility] [address] [place] [id number], [facility] MCV (RBC) [Entitic vol] 88.4 fL Normal 82.0-98.0 T [facility] Comment on above: Performed By: #### 3 1568, , 50637 #### [facility] [address] [place] [id number], [facility] Monocytes (Bld) [#/Vol] 0.7 10*3/uL Normal 0.1-1.0 [facility] Comment on above: Performed By: #### 3 1568, , 36279 #### [facility] [address] [place] [id number], [place] MONOS 9.5 % Normal 5.0-12.0 [facility] Comment on above: Performed By: #### 3 156, , 71968 #### [facility] [address] [place] [id number], [place] Neutrophils/100 WBC (Bld) 59.5 % Normal 40.0-72.0 [facility] Comment on above: Performed By: #### 3 1569, 81573, 18543 #### [facility] [address] [facility]. [address] [address] Nucleated RBC/100 WBC (Bld) [Ratio] 0 % Normal 0-0 [facility] Comment on above: Performed By: #### 3 1569, 55176, 72845 #### [facility] [address] [facility]. [address] PLAT CNT 149 10*3/uL Low 150-400 [facility] Comment on above: Performed By: #### 3 1569, 39493, 17452 #### [facility] [address] RBC (Bld) [#/Vol] 4.66 10*6/uL Normal 4.20-5.70 [facility] Comment on above: Performed By: #### 3 1569, 81884, 69144 #### [facility] [address] [facility]. [address] WBC (Bld) [#/Vol] 7.68 10*3/uL Normal 4.00-10.60 [facility] Comment on above: Performed By: #### 3 1569, 36891, 29233 #### [facility] [address] COMP METABOLIC PANELon 02-20 Albumin [Mass/Vol] 3.6 g/dL Normal 3.5-5.7 [facility] Comment on above: Performed By: #### 0 0121 #### [facility] [address] [facility]. [address] ALKALINE PHOSPH 122 IU/L High 34-104 [facility] Comment on above: Performed By: #### 0 0121 #### [facility] [address] [facility]. [address] ALT [Catalytic activity/Vol] 70 U/L High 7-52 [facility] Comment on above: Performed By: #### 0 0121 #### [facility] [address] [place] [address], [place] AST [Catalytic activity/Vol] 44 U/L High 13-39 [facility] Comment on above: Performed By: #### 0 0121 #### [facility] [address] [place] [address], [place] Bilirubin [Mass/Vol] 0.5 mg/dL Normal 0.3-1.0 [facility] Comment on above: Performed By: #### 0 0121 #### [facility] [address] [place] [address], [place] Calcium [Mass/Vol] 9.0 mg/dL Normal 8.6-10.3 [facility] Comment on above: Performed By: #### 0 0121 #### [facility] [address] [place] [address], [place] Chloride [Moles/Vol] 99 mmol/L Normal 98-107 [facility] Comment on above: Performed By: #### 0 0121 #### [facility] [address] [place] [address], [place] CO2 [Moles/Vol] 30 mmol/L Normal 21-31 [facility] Comment on above: Performed By: #### 0 0121 #### [facility] [address] [place] [address], [place] Creatinine [Mass/Vol] 2.80 mg/dL High 0.70-1.30 [facility] Comment on above: Performed By: #### 0 0121 #### [facility] [address] [place] [address], [place] EGFR 23 ml/min/1.73sq m Abnormal >60 [facility] Comment on above: Result Comment: [facility]'s estimated glomerular filtration rate (eGFR) will [...] individuals. Performed By: #### 0 0121 #### [facility] [address] [place] [address], [place] Glucose [Mass/Vol] 165 mg/dL High 70-100 [facility] Comment on above: Performed By: #### 0 0121 #### [facility] [address] [place] [address], [place] Potassium [Moles/Vol] 4.2 mmol/L Normal 3.5-5.1 [facility] Comment on above: Performed By: #### 0 0121 #### [facility] [address] [place] [address], [place] Protein [Mass/Vol] 7.2 g/dL Normal 6.0-8.3 [facility] Comment on above: Performed By: #### 0 0121 #### [facility] [address] [place] [address], [place] Sodium [Moles/Vol] 137 mmol/L Normal 136-145 [facility] Comment on above: Performed By: #### 0 0121 #### [facility] [address] [place] [address], [place] Urea nitrogen [Mass/Vol] 44 mg/dL High 7-25 [facility] Comment on above: Performed By: #### 0 0121 #### [facility] [address] [place] [address], [place] ALBUMIN BLOODon 11-21-2021 Albumin [Mass/Vol] 3.3 g/dL Low 3.5-5.7 [facility] Comment on above: Performed By: #### 1 0070, 23560, 94386, 93743, 79012, 97147 #### [facility] [address] [place] [address], [facility] BASIC METABOLIC PANELon 05-1 Calcium [Mass/Vol] 8.5 mg/dL Low 8.6-10.3 [facility] Comment on above: Performed By: #### 1 0070, 87272, 06700, 70517, 23513, 18879 #### [facility] [address] [place] [address], [place] Chloride [Moles/Vol] 104 mmol/L Normal 98-107 [facility] Comment on above: Performed By: #### 1 0070, 35685, 28030, 72201, 97996, 71385 #### [facility] [address] [place] [address], [place] CO2 [Moles/Vol] 27 mmol/L Normal 21-31 [facility] Comment on above: Performed By: #### 1 0070, 25917, 20388, 56385, 19721, 53249 #### [facility] [address] [place] [address], [place] Creatinine [Mass/Vol] 2.70 mg/dL High 0.70-1.30 [facility] Comment on above: Performed By: #### 1 0070, 89952, 86902, 61411, 03362, 60237 #### [facility] [address] [place] [address], [place] eGFR- 28 ml/min/1.73sq m Abnormal >60 [facility] Comment on above: Result Comment: Calc ulation may not be valid for patients over 70 years Performed By: #### 1 0070, 00042, 78263, 47773, 59522, 43382 #### [facility] [address] [place] [address], [facility] eGFR- non- 23 ml/min/1.73sq m Abnormal >60 [facility] Comment on above: Result Comment: Calc ulation may not be valid for patients over 70 years Performed By: #### 1 0070, 06932, 94335, 76630, 61300, 07022 #### [facility] [address] [place] [address], [place] Glucose [Mass/Vol] 321 mg/dL High 70-100 [facility] Comment on above: Performed By: #### 1 0070, 29762, 46939, 89629, 27714, 93330 #### [facility] [address] [place] [address], [place] Potassium [Moles/Vol] 4.3 mmol/L Normal 3.5-5.1 [facility] Comment on above: Performed By: #### 1 0070, 13849, 75338, 99309, 75543, 45721 #### [facility] [address] [place] [address], [place] Sodium [Moles/Vol] 136 mmol/L Normal 136-145 [facility] Comment on above: Performed By: #### 1 0070, 15821, 17381, 46609, 32466, 31753 #### [facility] [address] [place] [address], [place] Urea nitrogen [Mass/Vol] 44 mg/dL High 7-25 [facility] Comment on above: Performed By: #### 1 0070, 51040, 86287, 96896, 82053, 12634 #### [facility] [address] [place] [address], [place] CREATININE URINE RANDOMon Creatinine (U) [Mass/Vol] 67.0 mg/dL Normal [facility] Comment on above: Result Comment: Ther e are no established reference values for random urine specimens Performed By: #### 3 1569, 59503, 77578 #### [facility] [address] [place] [id number], [facility] FERRITINon 11-21-2021 Ferritin [Mass/Vol] 157 ng/mL Normal 24-336 [facility] Comment on above: Performed By: #### 1 0070, 03953, 72323, 48754, 53261, 95072 #### [facility] [address] [place] [address], [facility] HEMOGLOBINon 11-21-2021 Hemoglobin (Bld) [Mass/Vol] 12.1 g/dL Low 13.0-17.0 [facility] Comment on above: Performed By: #### 3 1569, , 51122 #### [facility] [address] [place] [address], [facility] MAGNESIUM BLOODon 11-21-2021 Magnesium [Mass/Vol] 1.8 mg/dL Low 1.9-2.7 [facility] Comment on above: Performed By: #### 1 0070, 71768, 96662, 14431, 87882, 37443 #### [facility] [address] [facility] [place] [address], [facility] PHOSPHORUS BLOODon 2 Phosphate [Mass/Vol] 2.8 mg/dL Normal 2.5-5.0 [facility] Comment on above: Performed By: #### 1 0070, 61668, 01211, 50372, 25981, 90207 #### [facility] [address] [place] [address], [facility] T PROT UR Celia 11-21-2021 U TOTAL PROTEIN 107.2 mg/dL Normal [facility] Comment on above: Result Comment: Ther e are no established reference values for random urine specimens Performed By: #### 3 1569, 71916, 86213 #### [facility] [address] [place] [id number], [facility] TIBC- INCLUDES IRONon 2021 FE SATURATION 15 % Low 20-50 [facility] Comment on above: Performed By: #### 1 0070, 08450, 02891, 28595, 81423, 02550 #### [facility] [address] [place] [address], [facility] Iron [Mass/Vol] 41 ug/dL Low 50-212 [facility] Comment on above: Performed By: #### 1 0070, 80110, 98247, 98877, 11381, 17900 #### [facility] [address] [place] [address], [facility] TIBC 271 mcg/dL Normal 250-450 [facility] Comment on above: Performed By: #### 1 0070, 67251, 37838, 56766, 95005, 24366 #### [facility] [address] [address], [facility] UIBC 230 mcg/dL Normal 155-355 [facility] Comment on above: Performed By: #### 1 0070, 54185, 06646, 40427, 01586, 58756 #### [facility] [address] [place] [address], [facility] ALBUMINon 09-28-2021 Albumin [Mass/Vol] 2.8 g/dL Critically low 3.4-5.0 [facility] Comment on above: Performed By: #### P HOS, MG, ALB, BMP #### [facility] [address] [place] [address] Dr. Gallo Infante CREATININE URINEon 2 URINE CREAT 79.37 mg/dL Normal 20.00-300.00 [facility] Comment on above: Performed By: #### C REAU, PROTU #### [facility] [address] [place] [address] Dr. Gallo Infante HEMOGLOBINon 09-28-2021 Hemoglobin (Bld) [Mass/Vol] 12.8 g/dL Critically low 14.0-18.0 [facility] Comment on above: Performed By: #### H GB #### [facility] [address] [place] [address] Dr. Gallo Infante MAGNESIUMon 09-28-2021 Magnesium [Mass/Vol] 2.0 mg/dL Normal 1.6-2.3 [facility] Comment on above: Performed By: #### P HOS, MG, ALB, BMP #### [facility] [address] [place] [address] Dr. Gallo Infante PHOSPHORUSon 09-28-2021 Phosphate [Mass/Vol] 3.9 mg/dL Normal 2.5-4.5 [facility] Comment on above: Performed By: #### P HOS, MG, ALB, BMP #### [facility] [address] [place] [address] Dr. Gallo Infante PROF CHEM 8 (BAS METB)on Anion gap [Moles/Vol] 8.6 mmol/L Normal [facility] Comment on above: Performed By: #### P HOS, MG, ALB, BMP #### [facility] [address] [place] [address] Dr. Gallo Infante Calcium [Mass/Vol] 8.3 mg/dL Critically low 8.5-10.1 [facility] Comment on above: Performed By: #### P HOS, MG, ALB, BMP #### [facility] [address] [place] [address] Dr. Gallo Infante Chloride [Moles/Vol] 103 mmol/L Normal 98-107 [facility] Comment on above: Performed By: #### P HOS, MG, ALB, BMP #### [facility] [address] [place] [address] Dr. Gallo Infante CO2 [Moles/Vol] 28.9 mmol/L Normal 22.0-30.0 [facility] Comment on above: Performed By: #### P HOS, MG, ALB, BMP #### [facility] [address] [place] [address] Dr. Gallo Infante Creatinine [Mass/Vol] 2.49 mg/dL Critically high 0.66-1.25 [facility] Comment on above: Performed By: #### P HOS, MG, ALB, BMP #### [facility] [address] [place] [address] Dr. Gallo Infante EGFR-AF MICRONESIAN 31 mL/min/1.73m2 Critically low >=60 [facility] Comment on above: Performed By: #### P HOS, MG, ALB, BMP #### [facility] [address] [place] [address] Dr. Gallo Infante EGFR-NON AF MICRONESIAN 25 mL/min/1.73m2 Critically low >=60 [facility] Comment on above: Performed By: #### P HOS, MG, ALB, BMP #### [facility] [address] [place] [address] Dr. Gallo Infante Glucose [Mass/Vol] 197 mg/dL Critically high 74-106 T [facility] Comment on above: Performed By: #### P HOS, MG, ALB, BMP #### [facility] [address] [place] [address] Dr. Gallo Infante Potassium [Moles/Vol] 4.5 mmol/L Normal 3.4-5.0 [facility] Comment on above: Performed By: #### P HOS, MG, ALB, BMP #### [facility] [address] [place] [address] Dr. Gallo Infante Sodium [Moles/Vol] 136 mmol/L Critically low 137-145 Th [facility] Comment on above: Performed By: #### P HOS, MG, ALB, BMP #### [facility] [address] [place] [address] Dr. Gallo Infante Urea nitrogen [Mass/Vol] 42.0 mg/dL Critically high 7.0-18.0 [facility] Comment on above: Performed By: #### P HOS, MG, ALB, BMP #### [facility] [address] [place] [address] Dr. Gallo Infante Urea nitrogen/Creatinine [Mass ratio] 16.9 mg/mg Normal [facility] Comment on above: Performed By: #### P HOS, MG, ALB, BMP #### [facility] [address] [place] [address] Dr. Gallo Infante PROTEIN RAND URINEon 022 UR PROT 166.1 mg/dL Critically high <=12.0 [facility] Comment on above: Performed By: #### C OSEI SERNAU #### [facility] [address] [place] [address] [address] Gallo Infante *URINE CULTUREon 08-22-2021 *URINE CULTURE Clinical Report: (D) Specimen: URINE Collected: 08/22/2021 15:12 Status: Final Last Updated: 08/24/2021 07:56 ISO (Final) >100,000 Cfu/Ml Mixed Gram Positive Yumiko Normal [facility] Comment on above: Performed By: #### 3 1569, 48313, 94722 #### [facility] [address] [place] [address], [place] HEMOGLOBIN A1Con 08-22-2021 Glucose [Moles/Vol] 203 mmol/L Normal [facility] Comment on above: Performed By: #### 3 1569, 26647, 99937 #### [facility] [address] [place] [address], [place] HbA1c (Bld) [Mass fraction] 8.7 % High 4.0-6.0 [facility] Comment on above: Performed By: #### 3 1569, 88379, 58828 #### [facility] [address] [place] [address], [place] UA,MICROSCOPIC REQUIREDon Appearance (U) CLEAR Normal CLEAR [facility] Comment on above: Performed By: #### 3 1569, 86243, 15154 #### [facility] [address] [place] [address], [place] Bilirubin Ql (U) Negative Normal NEGATIVE [facility] Comment on above: Performed By: #### 3 1569, 97266, 39597 #### [facility] [address] [place] [address], [place] Color (U) YELLOW Normal YELLOW [facility] Comment on above: Performed By: #### 3 1569, 22166, 28408 #### [facility] [address] [place] [address], [place] EPIS OCC Normal FEW,OCC,NONE SEEN [facility] Comment on above: Performed By: #### 3 1569, 53460, 03689 #### [facility] [address] [place] [address], [place] Glucose Ql (U) 50 mg/dL Abnormal NEGATIVE [facility] Comment on above: Performed By: #### 3 1569, 06781, 52867 #### [facility] [address] [place] [address], [facility] Hemoglobin Ql (U) Negative Normal NEGATIVE [facility] Comment on above: Performed By: #### 3 1569, 49754, 36934 #### [facility] [address] [address], [facility] KETONE Negative Normal NEGATIVE [facility] Comment on above: Performed By: #### 3 1569, 97934, 97720 #### [facility] [address] [place] [address], [facility] LEUK EDUARD Negative Normal NEGATIVE [facility] Comment on above: Performed By: #### 3 1569, 64573, 63207 #### [facility] [address] [place] [address], [place] MUCUS THREADS OCC Abnormal NONE SEEN [facility] Comment on above: Performed By: #### 3 1569, 33312, 08458 #### [facility] [address] [place] [address], [place] Nitrite Ql (U) Negative Normal NEGATIVE [facility] Comment on above: Performed By: #### 3 1569, 34970, 04650 #### [facility] [address] [place] [address], [place] pH (U) 5.0 [pH] Normal 5.0-8.0 [facility] Comment on above: Performed By: #### 3 1569, 64580, 01867 #### [facility] [address] Protein Ql (U) 100 mg/dL Abnormal NEGATIVE [facility] Comment on above: Performed By: #### 3 1569, 99346, 98246 #### [facility] [address] RBC NONE SEEN Normal NONE SEEN [facility] Comment on above: Performed By: #### 3 1569, 37513, 92492 #### [facility] [address] SPEC GRAV 1.012 Low 1.015-1.020 [facility] Comment on above: Performed By: #### 3 1569, 05312, 23617 #### [facility] [address] WBC UA 0-2 Abnormal NONE SEEN [facility] Comment on above: Performed By: #### 3 1569, 52429, 60172 #### [facility] [address] Otolaryngology Office/Clinic Noteon 08-20-2021 Otolaryngology Office/Clinic [...] Heart attack: Grandfather (P). Electronically signed by Jenifer AYONJoya 08/23/21 09:50 EST Normal [facility] Otolaryngology Office/Clinic Noteon 07-31-2021 Otolaryngology Office/Clinic [...] Ryan Bartlett MD 07/31/21 11:16 EST Normal [facility] *URINE CULTUREon 07-24-2021 *URINE CULTURE Clinical Report: (D) Specimen: URINE Collected: 07/24/2021 00:00 Status: Final Last Updated: 07/26/2021 08:31 ISO (Final) Klebsiella (Enterobacter) aerogenes >100,000 Cfu/Ml ISOLATE: Klebsiella (Enterobacter) aerogenes --- NICK (mcg/ml) AMP./SULBAC (AMS) 16/8 Resistant AMPICILLIN (AM) >16 Resistant AZTREONAM (AZM) <=2 Susceptible CEFAZOLIN (CZ) >16 Resistant CEFTRIAXONE ([employer]) <=1 Susceptible CIPROFLOXACIN (CIP) <=0.25 Susceptible GENTAMICIN (GM) <=2 Susceptible NITROFURANTOIN (FT) >64 Resistant PIP/TAZO (TZP) 8/4 Susceptible TOBRAMYCIN (TOB) <=2 Susceptible TRIMETH/SULFA (SXT) <=0.5/9.5 Susceptible Normal [facility] Comment on above: Performed By: #### 3 1569, 91415, 05745 #### [facility] [address] [place] [address], [facility] UA,MICROSCOPIC REQUIREDon Appearance (U) TURBID Abnormal CLEAR [facility] Comment on above: Performed By: #### 3 1569, 86147, 35769 #### [facility] [address] [place] [address], [place] Bilirubin Ql (U) Negative Normal NEGATIVE [facility] Comment on above: Performed By: #### 3 1569, 66296, 21604 #### [facility] [address] [place] [address], [place] Color (U) CHE Abnormal YELLOW [facility] Comment on above: Performed By: #### 3 1569, 83941, 46296 #### [facility] [address] [place] [address], [place] EPIS NONE SEEN Normal FEW,OCC,NONE SEEN [facility] Comment on above: Performed By: #### 3 1569, 42457, 47083 #### [facility] [address] [place] [address], [place] Glucose Ql (U) Negative Normal NEGATIVE [facility] Comment on above: Performed By: #### 3 1569, 57416, 39416 #### [facility] [address] [place] [address], [place] Hemoglobin Ql (U) Negative Normal NEGATIVE [facility] Comment on above: Performed By: #### 3 1569, 92265, 59278 #### [facility] [address] [place] [address], [place] KETONE Negative Normal NEGATIVE [facility] Comment on above: Performed By: #### 3 1569, 77318, 77953 #### [facility] [address] [place] [address], [place] LEUK EDUARD MODERATE Abnormal NEGATIVE [facility] Comment on above: Performed By: #### 3 1569, 30330, 65790 #### [facility] [address] [place] [address], [place] Nitrite Ql (U) Negative Normal NEGATIVE [facility] Comment on above: Performed By: #### 3 1569, 35715, 11431 #### [facility] [address] pH (U) 5.0 [pH] Normal 5.0-8.0 [facility] Comment on above: Performed By: #### 3 1569, 88880, 41815 #### [facility] [address] Protein Ql (U) >=500 Abnormal NEGATIVE [facility] Comment on above: Performed By: #### 3 1569, 02227, 64133 #### [facility] [address] RBC NONE SEEN Normal NONE SEEN [facility] Comment on above: Performed By: #### 3 1569, 63736, 47980 #### [facility] [address] SPEC GRAV 1.011 Low 1.015-1.020 [facility] Comment on above: Performed By: #### 3 1569, 08882, 61124 #### [facility] [address] WBC UA >100 Abnormal NONE SEEN [facility] Comment on above: Performed By: #### 3 1569, 61424, 67530 #### [facility] [address] PROSTATE SPEC AG FREE % ILon 07-20-2021 FREE PSA 0.3 ug/L Normal [facility] [place] Normal [facility] Comment on above: Result Comment: Test Performed by [facility] [address] [place] [address] - Released 07/23/2021 14:16 Result changed by IF on 07/23/2021 14:16. The previous value was Test Performed by [facility] [address] [place] [address] [phone].. PROSTATIC SPEC AG 0.7 ug/L Normal 0.0-4.0 [facility] Comment on above: Result Comment: Siemens Immulite 2000 immunometric chemiluminescent assay is used. Results obtained with different assay methods or instruments cannot be used interchangeably. PSA PERCENT FREE 42.9 % Normal [facility] Comment on above: Result Comment: In [...] rectal examination findings. BASIC METABOLIC PANELon 12-0 8-2020 Calcium [Mass/Vol] 8.4 mg/dL Low 8.6-10.3 [facility] Comment on above: Performed By: #### 3 1569, 52437, 39408 #### [facility] [address] [place] [address], [place] Chloride [Moles/Vol] 107 mmol/L Normal 98-107 [facility] Comment on above: Performed By: #### 3 1569, 62876, 09425 #### [facility] [address] [place] [address], [place] CO2 [Moles/Vol] 22 mmol/L Normal 21-31 [facility] Comment on above: Performed By: #### 3 1569, 19608, 63992 #### [facility] [address] [place] [address], [place] Creatinine [Mass/Vol] 2.26 mg/dL High 0.70-1.30 [facility] Comment on above: Performed By: #### 3 1569, 23908, 63568 #### [facility] [address] [place] [address], [place] eGFR- 34 ml/min/1.73sq m Abnormal >60 [facility] Comment on above: Result Comment: Calc ulation may not be valid for patients over 70 years Performed By: #### 3 1569, 09188, 19094 #### [facility] [address] [place] [id number], [facility] eGFR- non- 28 ml/min/1.73sq m Abnormal >60 [facility] Comment on above: Result Comment: Calc ulation may not be valid for patients over 70 years Performed By: #### 3 1569, 39610, 59285 #### [facility] [address] [place] [id number], [facility] Glucose [Mass/Vol] 250 mg/dL High 70-100 [facility] Comment on above: Performed By: #### 3 1569, , 65631 #### [facility] [address] [place] [id number], [facility] Potassium [Moles/Vol] 4.1 mmol/L Normal 3.5-5.1 [facility] Comment on above: Performed By: #### 3 1569, 72709, 81335 #### [facility] [address] [place] [address], [facility] Sodium [Moles/Vol] 137 mmol/L Normal 136-145 [facility] Comment on above: Performed By: #### 3 1569, 82589, 09987 #### [facility] [address] [place] [address], [facility] Urea nitrogen [Mass/Vol] 38 mg/dL High 7-25 [facility] Comment on above: Performed By: #### 3 1569, 94912, 51410 #### [facility] [address] [place] [address], [place] CBC W/DIFFon 06-20-2021 ABS IMM GRANS 0.0 10*3/uL Normal 0.0-0.2 [facility] Comment on above: Performed By: #### 3 1569, , 67890 #### [facility] [address] [place] [id number], [facility] ABS NEUTROPHILS 6.5 10*3/uL Normal 1.6-7.6 [facility] Comment on above: Performed By: #### 3 156, , 71964 #### [facility] [address] [place] [address], [place] Basophils (Bld) [#/Vol] 0.1 10*3/uL Normal 0.0-0.2 [facility] Comment on above: Performed By: #### 3 156, , 33158 #### [facility] [address] [place] [id number], [facility] Basophils/100 WBC (Bld) 0.7 % Normal 0.0-1.0 T [facility] Comment on above: Performed By: #### 3 156, , 80567 #### [facility] [address] [place] [address], [place] Eosinophils (Bld) [#/Vol] 0.3 10*3/uL Normal 0.0-0.5 [facility] Comment on above: Performed By: #### 3 156, , 37262 #### [facility] [address] [place] [id number], [place] Eosinophils/100 WBC (Bld) 2.6 % Normal 0.0-6.0 [facility] Comment on above: Performed By: #### 3 156, , 60548 #### [facility] [address] [place] [id number], [place] Erythrocyte distribution width (RBC) [Ratio] 14.3 % Normal 11.5-15.0 [facility] Comment on above: Performed By: #### 3 156, , 81808 #### [facility] [address] [facility]. [address] Hematocrit (Bld) [Volume fraction] 35.8 % Low 39.0-50.0 [facility] Comment on above: Performed By: #### 3 156, , 69381 #### [facility] [address] [place] [address], [facility] Hemoglobin (Bld) [Mass/Vol] 11.6 g/dL Low 13.0-17.0 [facility] Comment on above: Performed By: #### 3 156, , 84339 #### [facility] [address] [facility] [place] [address], [facility] IMMATURE GRANS 0.4 % Normal 0.0-1.0 [facility] Comment on above: Performed By: #### 3 1568, , 35638 #### [facility] [address] [facility]. [address] Lymphocytes (Bld) [#/Vol] 1.7 10*3/uL Normal 1.2-4.0 [facility] Comment on above: Performed By: #### 3 1568, , 66508 #### [facility] [address] [facility] [place] [address], [facility] Lymphocytes/100 WBC (Bld) 17.9 % Low 20.0-45.0 [facility] Comment on above: Performed By: #### 3 1568, , 08121 #### [facility] [address] [place] [address], [facility] MCH (RBC) [Entitic mass] 27.8 pg Normal 27.0-33.0 [facility] Comment on above: Performed By: #### 3 156, , 56537 #### [facility] [address] [place] [address], [facility] MCHC (RBC) [Mass/Vol] 32.4 g/dL Normal 32.0-35.0 [facility] Comment on above: Performed By: #### 3 156, , 71800 #### [facility] [address] [place] [id number], [facility] MCV (RBC) [Entitic vol] 85.9 fL Normal 82.0-98.0 T [facility] Comment on above: Performed By: #### 3 156, , 37352 #### [facility] [address] [place] [address], [facility] Monocytes (Bld) [#/Vol] 0.9 10*3/uL Normal 0.1-1.0 [facility] Comment on above: Performed By: #### 3 156, , 83299 #### [facility] [address] [place] [id number], [place] MONOS 9.0 % Normal 5.0-12.0 [facility] Comment on above: Performed By: #### 3 156, , 39217 #### [facility] [address] [place] [id number], [facility] Neutrophils/100 WBC (Bld) 69.4 % Normal 40.0-72.0 [facility] Comment on above: Performed By: #### 3 156, , 51991 #### [facility] [address] [place] [id number], [facility] Nucleated RBC/100 WBC (Bld) [Ratio] 0 % Normal 0-0 [facility] Comment on above: Performed By: #### 3 156, , 45731 #### [facility] [address] [place] [address], [place] PLAT CNT 182 10*3/uL Normal 150-400 [facility] Comment on above: Performed By: #### 3 156, , 97064 #### [facility] [address] [place] [address], [place] RBC (Bld) [#/Vol] 4.17 10*6/uL Low 4.20-5.70 [facility] Comment on above: Performed By: #### 3 1569, 80440, 53556 #### [facility] [address] [facility]. [address] WBC (Bld) [#/Vol] 9.44 10*3/uL Normal 4.00-10.60 [facility] Comment on above: Performed By: #### 3 1569, 98916, 19552 #### [facility] [address] [facility]. [address] MAGNESIUM BLOODon 06-20-2021 Magnesium [Mass/Vol] 1.9 mg/dL Normal 1.9-2.7 [facility] Comment on above: Performed By: #### 3 1569, 03195, 60805 #### [facility] [address] [facility]. [address] TSH3 WITH REFLEX FT4on 06-20 TSH 3RD GENERATION 0.68 uIU/mL Normal 0.34-5.60 [facility] Comment on above: Performed By: #### 3 1569, 57788, 80179 #### [facility] [address] [facility]. [address] CBC Auto DifferentialOrdered By: Maldonado Wilson on 05-08-2021 Absolute Eos # 0.16 [employer] [facility] Work Phone: Absolute Immature Granulocyte 0.05 [facility] Work Phone: Absolute Lymph # 1.64 [employer] [facility] Work Phone: Absolute [place] # 0.79 [employer] [facility] Work Phone: Basophils (Bld) [#/Vol] 0.04 10*3/uL RECESS. Work Phone: Basophils/100 WBC (Bld) 1 % 0 - 2 % [facility] Work Phone: Differential Type NOT REPORTED [employer] Phone: Eosinophils/100 WBC (Bld) 2 % 1 - 4 % [employer] Phone: Hematocrit (Bld) [Volume fraction] 38.0 % Low 40.7 - 50.3 % [facility] Phone: Hemoglobin.gastrointest inal spec 1 Ql (Stl) 12.0 g/dL Low 13.0 - 17.0 g/dL [facility] Phone: Immature granulocytes/100 WBC (Bld) 1 % High 0 [facility] Phone: Interpretation and review of laboratory results Abnormal [employer] Phone: Lymphocytes/100 WBC (Bld) 20 % Low 24 - 43 % [employer] Phone: MCH (RBC) [Entitic mass] 28.1 pg 25.2 - 33.5 pg [facility] Phone: MCHC (RBC) [Mass/Vol] 31.6 g/dL 28.4 - 34.8 g/dL [employer] Phone: MCV (RBC) [Entitic vol] 89.0 fL 82.6 - 102.9 fL [employer] Phone: Monocytes/100 WBC (Bld) 9 % 3 - 12 % [facility] Phone: NRBC Automated 0.0 0.0 per 100 WBC [employer] Phone: Platelet distribution width (Bld) [Ratio] 13.7 % 11.8 - 14.4 % [employer] Phone: Platelet Estimate NOT REPORTED [employer] Phone: Platelet mean volume (Bld) [Entitic vol] 11.0 fL 8.1 - 13.5 fL [employer] Phone: Platelets (Bld) [#/Vol] 182 10*3/uL [employer] [facility] Work Phone: RBC (Bld) [#/Vol] 4.27 10*6/uL 4.21 - 5.7 7 m/uL [facility] Work Phone: RBC (Bld) [#/Vol] NOT REPORTED [facility] [employer] Work Phone: Segmented neutrophils/100 WBC (Bld) 67 % High 36 - 65 % [facility] Work Phone: Segs Absolute 5.70 [facility] [facility] Work Phone: WBC (Bld) [#/Vol] 8.4 10*3/uL [facility] [employer] Work Phone: WBC (Bld) [#/Vol] NOT REPORTED [facility] [employer] Work Phone: [facility] [employer] Work Phone: Microscopic UrinalysisOrdere d By: Maldonado Wilson on 05-08-2021 - [facility] [employer] Work Phone: Amorphous, UA NOT REPORTED None [facility] Work Phone: Bacteria, UA 4+ Abnormal None [facility] [employer] Work Phone: Casts UA NOT REPORTED /LPF [facility] [employer] Work Phone: Crystals, UA NOT REPORTED None /HPF [facility] Work Phone: Epithelial Cells UA 0 TO 2 [facility] [employer] Work Phone: Interpretation and review of laboratory results Abnormal [facility] [employer] Work Phone: Mucus, UA NOT REPORTED None [facility] [employer] Work Phone: Other Observations UA NOT REPORTED NOT REQ. [facility] Work Phone: RBC, UA 5 TO 10 [facility] [employer] Work Phone: Renal Epithelial, UA NOT REPORTED 0 /HPF [facility] Work Phone: Trichomonas, UA NOT REPORTED None [facility] Work Phone: WBC, UA GREATER THAN 100 [facility] Work Phone: Yeast, UA NOT REPORTED None [facility] Work Phone: [facility] Work Phone: UrinalysisOrdered By: Maldonado Wilson on 05-08-2021 Bilirubin Urine Negative NEGATIVE [facility] Work Phone: Color, UA Yellow [facility] Work Phone: Glucose, Ur 2+ Abnormal NEGATIVE [facility] Work Phone: Interpretation and review of laboratory results Abnormal [facility] Work Phone: Ketones Ql (U) Negative NEGATIVE [facility] Work Phone: Leukocyte esterase Test strip Ql (U) LARGE Abnormal NEGATIVE [facility] Work Phone: Nitrite, Urine Negative NEGATIVE [facility] Work Phone: pH, UA 6.0 [facility] Work Phone: Protein, UA 2+ Abnormal NEGATIVE [facility] Work Phone: Specific [place], UA 1.020 [facility] Work Phone: Turbidity UA Cloudy Abnormal Clear [facility] Work Phone: Urinalysis Comments NOT REPORTED [facility] Work Phone: Urine Hgb 1+ Abnormal NEGATIVE [facility] Work Phone: Urobilinogen, Urine Normal Normal [facility] [employer] Work Phone: [facility] Work Phone: BONE MARROW SCREENon 021 BONE MARROW SCR SEE BONE MARROW SPECIAL REPORT FORM Normal [facility] Comment on above: Performed By: #### 3 8869, 29177, 66974 #### [address] BIOPSY BONE MARROWon 04-13 CT BIOPSY BONE MARROW [facility] Department of Radiology [address] [place] [id number] Patient Name: BERTHA XIE : 1945 Sex: M Age: Race: White Pt. 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 Consent was obtained. Timeout: [place] protocol timeout verification performed. MEDICATIONS: 2 mg of versed and 100 micrograms of Fentanyl were administered for conscious sedation. Vital signs were continuously monitored by nursing staff throughout the procedure. Performing physician:Dr. Camilo and Dr. Francois, attending physician was present for all critical [...] report. Electronically signed: Satish Camilo. Transcribed by: [email or web address], User Resident: RICHAR FRANCOIS Electronically Signed by: SATISH CAMILO @ 04/26/2021 02:52 PM I personally read this/these film(s) with this resident Normal [facility] HEMATOLOGY COMPLETE EVALUATI ON [facility]-26-2021 RESULT Results faxed to ordering physician and sent to HIM Normal [facility] Comment on above: Result Comment: Test performed by [employer] [employer] * [address] [place] [address], [address] * [place], [place] * [phone] Work Order Clerk: Branden Echols M.D. RESULTS FAXED TO [phone] Performed By: #### 3 1568, , 27307 #### [facility] [address] APTTon 04-23-2021 aPTT Coag (Bld) [Time] 30.9 s Normal 25.0-35.0 Th e [facility] Comment on above: Result Comment: ALL [...] FOR THIS PURPOSE. Performed By: #### 3 1568, , 39121 #### [facility] [address] CBC W/DIFFon 04-23-2021 ABS IMM GRANS 0.0 10*3/uL Normal 0.0-0.2 [facility] Comment on above: Performed By: #### 3 1568, , 78270 #### [facility] [address] ABS NEUTROPHILS 6.5 10*3/uL Normal 1.6-7.6 [facility] Comment on above: Performed By: #### 3 1568, , 33412 #### [facility] [address] [place] [address], [facility] Basophils (Bld) [#/Vol] 0.1 10*3/uL Normal 0.0-0.2 [facility] Comment on above: Performed By: #### 3 1568, , 71794 #### [facility] [address] [place] [address], [facility] Basophils/100 WBC (Bld) 0.5 % Normal 0.0-1.0 T [facility] Comment on above: Performed By: #### 3 156, , 49920 #### [facility] [address] [place] [address], [facility] Eosinophils (Bld) [#/Vol] 0.1 10*3/uL Normal 0.0-0.5 [facility] Comment on above: Performed By: #### 3 156, , 95666 #### [facility] [address] [place] [address], [facility] Eosinophils/100 WBC (Bld) 1.5 % Normal 0.0-6.0 [facility] Comment on above: Performed By: #### 3 156, , 79763 #### [facility] [address] Erythrocyte distribution width (RBC) [Ratio] 14.5 % Normal 11.5-15.0 [facility] Comment on above: Performed By: #### 3 1568, , 52408 #### [facility] [address] Hematocrit (Bld) [Volume fraction] 35.1 % Low 39.0-50.0 [facility] Comment on above: Performed By: #### 3 1568, , 84761 #### [facility] [address] [place] [address], [facility] Hemoglobin (Bld) [Mass/Vol] 11.8 g/dL Low 13.0-17.0 [facility] Comment on above: Performed By: #### 3 156, , 00279 #### [facility] [address] [place] [address], [facility] IMMATURE GRANS 0.4 % Normal 0.0-1.0 [facility] Comment on above: Performed By: #### 3 156, , 94769 #### [facility] [address] [place] [address], [facility] Lymphocytes (Bld) [#/Vol] 2.1 10*3/uL Normal 1.2-4.0 [facility] Comment on above: Performed By: #### 3 156, , 71058 #### [facility] [address] [place] [address], [facility] Lymphocytes/100 WBC (Bld) 21.6 % Normal 20.0-45.0 [facility] Comment on above: Performed By: #### 3 1568, , 77658 #### [facility] [address] [place] [address], [facility] MCH (RBC) [Entitic mass] 28.3 pg Normal 27.0-33.0 [facility] Comment on above: Performed By: #### 3 1568, , 60827 #### [facility] [address] [place] [address], [facility] MCHC (RBC) [Mass/Vol] 33.6 g/dL Normal 32.0-35.0 [facility] Comment on above: Performed By: #### 3 1568, , 80485 #### [facility] [address] [place] [address], [facility] MCV (RBC) [Entitic vol] 84.2 fL Normal 82.0-98.0 T [facility] Comment on above: Performed By: #### 3 1568, , 86984 #### [facility] [address] [place] [address], [facility] Monocytes (Bld) [#/Vol] 0.8 10*3/uL Normal 0.1-1.0 [facility] Comment on above: Performed By: #### 3 156, , 36938 #### [facility] [address] [place] [address], [facility] MONOS 8.6 % Normal 5.0-12.0 [facility] Comment on above: Performed By: #### 3 1569, 87684, 85471 #### [facility] [address] [place] [address], [place] Neutrophils/100 WBC (Bld) 67.4 % Normal 40.0-72.0 [facility] Comment on above: Performed By: #### 3 1569, 53643, 05922 #### [facility] [address] [place] [address], [place] Nucleated RBC/100 WBC (Bld) [Ratio] 0 % Normal 0-0 [facility] Comment on above: Performed By: #### 3 1569, 01331, 91325 #### [facility] [address] [place] [address], [place] PLAT CNT 150 10*3/uL Normal 150-400 [facility] Comment on above: Performed By: #### 3 1569, 27540, 22959 #### [facility] [address] [place] [address], [place] RBC (Bld) [#/Vol] 4.17 10*6/uL Low 4.20-5.70 [facility] Comment on above: Performed By: #### 3 1569, 14111, 66133 #### [facility] [address] [place] [address], [place] WBC (Bld) [#/Vol] 9.64 10*3/uL Normal 4.00-10.60 [facility] Comment on above: Performed By: #### 3 1569, 51680, 35231 #### [facility] [address] [place] [address], [place] COMP METABOLIC PANELon 04-23 ALBUMIN CANCELED Normal 3.5-5.7 [facility] Comment on above: Order Comment: DR. Delores RODRIGUEZ LIKE A REDRAW TO CONFIRM RESULTS PER CALL WITH SEBAS TSE ON05.03.21. FAXED OUTPATIENT REDRAW SLIP TO [facility]. Result Comment: The released value 3.5 was canceled by [email or web address] on 04/24/2021 11:48 Performed By: #### 3 1569, 84294, 48156 #### [facility] [address] [place] [address], [facility] ALKALINE PHOSPH CANCELED Normal 34-104 [facility] Comment on above: Order Comment: DR. Delores RODRIGUEZ LIKE A REDRAW TO CONFIRM RESULTS PER CALL WITH SEBAS TSE ON05.03.21. FAXED OUTPATIENT REDRAW SLIP TO [facility]. Result Comment: The released value 113 was canceled by [email or web address] on 04/24/2021 11:48 Performed By: #### 3 1569, 47775, 58133 #### [facility] [address] [place] [address], [facility] ALT (SGPT) CANCELED Normal 7-52 [facility] Comment on above: Order Comment: DR. Delores RODRIGUEZ LIKE A REDRAW TO CONFIRM RESULTS PER CALL WITH SEBAS TSE ON05.03.21. FAXED OUTPATIENT REDRAW SLIP TO [facility]. Result Comment: The released value 18 was canceled by [email or web address] on 04/24/2021 11:48 Performed By: #### 3 1569, 90095, 39732 #### [facility] [address] [place] [address], [place] AST (SGOT) CANCELED Normal 13-39 [facility] Comment on above: Order Comment: DR. Delores RODRIGUEZ LIKE A REDRAW TO CONFIRM RESULTS PER CALL WITH SEBAS TSE 05.03.21. FAXED OUTPATIENT REDRAW SLIP TO [facility]. Result Comment: The released value 15 was canceled by [email or web address] on 04/24/2021 11:48 Performed By: #### 3 1569, 06267, 10428 #### [facility] [address] [place] [address], [place] CALCIUM CANCELED Normal 8.6-10.3 [facility] Comment on above: Order Comment: DR. Delores RODRIGUEZ LIKE A REDRAW TO CONFIRM RESULTS PER CALL WITH SEBAS RN ON05.03.21. FAXED OUTPATIENT REDRAW SLIP TO [facility]. Result Comment: The released value 8.8 was canceled by [email or web address] on 04/24/2021 11:48 Performed By: #### 3 1569, 84190, 30057 #### [facility] [address] [place] [address], [facility] CARBON DIOXIDE CANCELED Normal 21-31 [facility] Comment on above: Order Comment: DR. Delores RODRIGUEZ LIKE A REDRAW TO CONFIRM RESULTS PER CALL WITH SEBAS TSE ON05.03.21. FAXED OUTPATIENT REDRAW SLIP TO [facility]. Result Comment: The released value 21 was canceled by [email or web address] on 04/24/2021 11:48 Performed By: #### 3 1569, 57695, 05305 #### [facility] [address] [place] [address], [facility] CHLORIDE CANCELED Normal 98-107 [facility] Comment on above: Order Comment: DR. Delores RODRIGUEZ LIKE A REDRAW TO CONFIRM RESULTS PER CALL WITH SEBAS TSE ON05.03.21. FAXED OUTPATIENT REDRAW SLIP TO [facility]. Result Comment: The released value 103 was canceled by [email or web address] on 04/24/2021 11:48 Performed By: #### 3 1569, 96074, 38678 #### [facility] [address] [place] [address], [facility] CREATININE CANCELED Normal 0.70-1.30 [facility] Comment on above: Order Comment: DR. Delores RODRIGUEZ LIKE A REDRAW TO CONFIRM RESULTS PER CALL WITH SEBAS TSE ON05.03.21. FAXED OUTPATIENT REDRAW SLIP TO [facility]. Result Comment: The released value 2.79 was canceled by [email or web address] on 04/24/2021 11:48 Performed By: #### 3 1569, 01807, 41173 #### [facility] [address] [place] [address], [facility] eGFR- CANCELED Normal >60 [facility] Comment on above: Order Comment: DR. Delores RODRIGUEZ LIKE A REDRAW TO CONFIRM RESULTS PER CALL WITH SEBAS TSE ON05.03.21. FAXED OUTPATIENT REDRAW SLIP TO [facility]. Result Comment: Calc ulation may not be valid for patients over 70 years The released value 27 was canceled by [email or web address] on 04/24/2021 11:48 Performed By: #### 3 1569, 13105, 45919 #### [facility] [address] [place] [address], [facility] eGFR- non- CANCELED Normal >60 [facility] Comment on above: Order Comment: DR. Delores RODRIGUEZ LIKE A REDRAW TO CONFIRM RESULTS PER CALL WITH SEBAS TSE ON05.03.21. FAXED OUTPATIENT REDRAW SLIP TO [facility]. Result Comment: Calc ulation may not be valid for patients over 70 years The released value 22 was canceled by [email or web address] on 04/24/2021 11:48 Performed By: #### 3 1569, 76015, 36171 #### [facility] [address] [place] [address], [facility] GLUCOSE CANCELED Normal 70-100 [facility] Comment on above: Order Comment: DR. Delores RODRIGUEZ LIKE A REDRAW TO CONFIRM RESULTS PER CALL WITH SEBAS TSE 05.03.21. FAXED OUTPATIENT REDRAW SLIP TO [facility]. Result Comment: The released value 201 was canceled by [email or web address] on 04/24/2021 11:48 Performed By: #### 3 1569, 85381, 47977 #### [facility] [address] [place] [address], [facility] POTASSIUM CANCELED Normal 3.5-5.1 [facility] Comment on above: Order Comment: DR. Delores RODRIGUEZ LIKE A REDRAW TO CONFIRM RESULTS PER CALL WITH SEBAS TSE 05.03.21. FAXED OUTPATIENT REDRAW SLIP TO [facility]. Result Comment: The released value 3.9 was canceled by [email or web address] on 04/24/2021 11:48 Performed By: #### 3 1569, 56775, 65032 #### [facility] [address] [place] [address], [place] SODIUM CANCELED Normal 136-145 [facility] Comment on above: Order Comment: DR. Delores RODRIGUEZ LIKE A REDRAW TO CONFIRM RESULTS PER CALL WITH SEBAS TSE ON05.03.21. FAXED OUTPATIENT REDRAW SLIP TO [facility]. Result Comment: The released value 140 was canceled by [email or web address] on 04/24/2021 11:48 Performed By: #### 3 1569, 03585, 87004 #### [facility] [address] [place] [address], [place] TOTAL BILI CANCELED Normal 0.3-1.0 [facility] Comment on above: Order Comment: DR. Delores RODRIGUEZ LIKE A REDRAW TO CONFIRM RESULTS PER CALL WITH SEBAS TSE ON05.03.21. FAXED OUTPATIENT REDRAW SLIP TO [facility]. Result Comment: The released value 0.5 was canceled by [email or web address] on 04/24/2021 11:48 Performed By: #### 3 1569, 08094, 42064 #### [facility] [address] [place] [address], [place] TOTAL PROTEIN CANCELED Normal 6.0-8.3 [facility] Comment on above: Order Comment: DR. Delores RODRIGUEZ LIKE A REDRAW TO CONFIRM RESULTS PER CALL WITH SEBAS TSE 05.03.21. FAXED OUTPATIENT REDRAW SLIP TO [facility]. Result Comment: The released value 7.1 was canceled by [email or web address] on 04/24/2021 11:48 Performed By: #### 3 1569, 36208, 50020 #### [facility] [address] [place] [address], [place] UREA NITROGEN CANCELED Normal 7-25 [facility] Comment on above: Order Comment: DR. Delores RODRIGUEZ LIKE A REDRAW TO CONFIRM RESULTS PER CALL WITH SEBAS TSE ON05.03.21. FAXED OUTPATIENT REDRAW SLIP TO [facility]. Result Comment: The released value 45 was canceled by EDI on 04/24/2021 11:48 Performed By: #### 3 1569, 74284, 94099 #### [facility] [address] [place] [address], [place] IMMUNOFIXATION BLOODon 04-23 IgA [Mass/Vol] 527 mg/dL High 60-413 [facility] Comment on above: Performed By: #### 3 1569, 19640, 42404 #### [facility] [address] [place] [address], [place] IgG [Mass/Vol] 1790 mg/dL High 591-1540 [facility] Comment on above: Performed By: #### 3 1569, 94900, 89124 #### [facility] [address] [place] [address], [place] IgM [Mass/Vol] 112 mg/dL Normal 54-285 [facility] Comment on above: Performed By: #### 3 1569, 23922, 21013 #### [facility] [address] 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 See separate report. Performed By: #### 3 1569, 58630, 89321 #### [facility] [address] [place] [address], [place] PROTEIN ELECT Nikos 04-23-2021 Protein [Mass/Vol] 6.8 g/dL Normal 6.0-8.3 [facility] Comment on above: Performed By: #### 3 1569, 44231, 83935 #### [facility] [address] [place] [address], [place] PROTEIN ELECT Normal [facility] [facility] Comment on above: Result Comment: Hypo albuminemia is seen. This may be dilutional (from I.V. fluids) or nutritional in origin. There is a diffuse (polyclonal) gammopathy. SEE SEPARATE REPORT Performed By: #### 3 1569, [id number], [id number] #### [facility] [address] PROTHROMBIN TIMEon 1 INR Coag (PPP) [Relative time] 1.30 {INR} High 0.91-1.16 [facility] Comment on above: Result Comment: ACCC [...] CHEST 1995;108:[id number]. Performed By: #### 3 1569, , [id number] #### [facility] [address] [place] [address], [facility] PT Coag (PPP) [Time] 16.2 s High 12.3-14.8 [facility] Comment on above: Result Comment: ALL RESULTS MUST BE INTERPRETED WITH RESPECT TO BLOOD DRAWING ARTIFACT OR DILUTION ERROR OF ANTICOAGULANT AT THE TIME OF SAMPLING. Performed By: #### 3 1569, , [id number] #### [address] [place] [address], [facility] SERUM FREE LIGHT CHAINS ILon 04-23-2021 FREE KAPPA LIGHT CHAINS 9.73 mg/dL High 0.37-1.94 T [facility] FREE KAPPA/LAMBDA RATIO 1.51 Normal 0.26-1.65 [facility] FREE LAMBDA LIGHT CHAINS 6.45 mg/dL High 0.57-2.63 [facility] [place] Normal [facility] Comment on above: Result Comment: Test Performed by [facility] [address] [place] [id number] - Released 04/23/2021 18:48 Result changed by IF on 04/23/2021 18:48. The previous value was Test Performed by [facility] [address] [place] [id number] [phone] SKELETAL SURVEYon 04-20-2021 SKELETAL SURVEY [facility] Department of Radiology [address] [place] [id number] Patient Name: BERTHA XIE : 1945 Sex: M Age: Race: White Pt. Location: 29 Patient Status: O Ordered Date: 04/12/2021 10:20:00 AM Completed Date: 04/20/2021 02:02 PM Requesting Provider: LUIS FELIPE HUERTAS Attending Provider: LUIS FELIPE HUERTAS Report Copy To: Signs & Symptoms: D47.2 [...] obtained according to the guidelines for the [employer] FINDINGS: Bowel: No lytic [...] recommended in 10-14 days. Electronically signed: Teressa Maher. Transcribed by: [email or web address], User Resident: Electronically Signed by: TERESSA MAHER @ 04/20/2021 02:30 PM Normal [facility] BASIC METABOLIC PANELon 03-14 Calcium [Mass/Vol] 8.8 mg/dL Normal 8.6-10.3 [facility] Comment on above: Performed By: #### 3 1569, 16876, 65241 #### [facility] [address] [facility] [place] [address], [facility] Chloride [Moles/Vol] 104 mmol/L Normal 98-107 [facility] Comment on above: Performed By: #### 3 1569, 43398, 04810 #### [facility] [address] [place] [address], [place] CO2 [Moles/Vol] 25 mmol/L Normal 21-31 [facility] Comment on above: Performed By: #### 3 1569, 03154, 58548 #### [facility] [address] [place] [address], [place] Creatinine [Mass/Vol] 2.56 mg/dL High 0.70-1.30 [facility] Comment on above: Performed By: #### 3 1569, 91322, 33532 #### [facility] [address] [place] [address], [place] eGFR- 30 ml/min/1.73sq m Abnormal >60 [facility] Comment on above: Result Comment: Calc ulation may not be valid for patients over 70 years Performed By: #### 3 1569, , 63028 #### [facility] [address] [place] [address], [place] eGFR- non- 25 ml/min/1.73sq m Abnormal >60 [facility] Comment on above: Result Comment: Calc ulation may not be valid for patients over 70 years Performed By: #### 3 1569, 54141, 67781 #### [facility] [address] [place] [address], [place] Glucose [Mass/Vol] 219 mg/dL High 70-100 [facility] Comment on above: Performed By: #### 3 1569, 64868, 67704 #### [facility] [address] [place] [address], [place] Potassium [Moles/Vol] 4.6 mmol/L Normal 3.5-5.1 [facility] Comment on above: Performed By: #### 3 1569, 37920, 54782 #### [facility] [address] [place] [address], [place] Sodium [Moles/Vol] 136 mmol/L Normal 136-145 [facility] Comment on above: Performed By: #### 3 1569, , 27939 #### [facility] [address] [facility]. [address] Urea nitrogen [Mass/Vol] 42 mg/dL High 7-25 [facility] Comment on above: Performed By: #### 3 1569, , 24389 #### [facility] [address] [facility] [place] [address], [facility] CBC W/DIFFon 03-28-2021 ABS IMM GRANS 0.0 10*3/uL Normal 0.0-0.2 [facility] Comment on above: Performed By: #### 3 1569, , 25499 #### [facility] [address] [facility]. [address] ABS NEUTROPHILS 6.4 10*3/uL Normal 1.6-7.6 [facility] Comment on above: Performed By: #### 3 1569, , 07739 #### [facility] [address] [facility] [place] [address], [facility] Basophils (Bld) [#/Vol] 0.1 10*3/uL Normal 0.0-0.2 [facility] Comment on above: Performed By: #### 3 1569, , 81795 #### [facility] [address] [facility] [place] [address], [facility] Basophils/100 WBC (Bld) 0.7 % Normal 0.0-1.0 [facility] Comment on above: Performed By: #### 3 1569, , 31624 #### [facility] [address] [facility] [place] [address], [facility] Eosinophils (Bld) [#/Vol] 0.1 10*3/uL Normal 0.0-0.5 [facility] Comment on above: Performed By: #### 3 1569, , 58307 #### [facility] [address] [facility] [place] [address], [facility] Eosinophils/100 WBC (Bld) 1.3 % Normal 0.0-6.0 [facility] Comment on above: Performed By: #### 3 156, , 47572 #### [facility] [address] [place] [id number], [facility] Erythrocyte distribution width (RBC) [Ratio] 14.6 % Normal 11.5-15.0 [facility] Comment on above: Performed By: #### 3 1568, , 71928 #### [facility] [address] [place] [address], [facility] Hematocrit (Bld) [Volume fraction] 38.8 % Low 39.0-50.0 [facility] Comment on above: Performed By: #### 3 1568, , 58457 #### [facility] [address] [place] [address], [facility] Hemoglobin (Bld) [Mass/Vol] 12.5 g/dL Low 13.0-17.0 [facility] Comment on above: Performed By: #### 3 1568, , 50409 #### [facility] [address] [place] [address], [facility] IMMATURE GRANS 0.4 % Normal 0.0-1.0 [facility] Comment on above: Performed By: #### 3 1568, , 26295 #### [facility] [address] [place] [address], [facility] Lymphocytes (Bld) [#/Vol] 1.8 10*3/uL Normal 1.2-4.0 [facility] Comment on above: Performed By: #### 3 1568, , 40464 #### [facility] [address] [place] [id number], [facility] Lymphocytes/100 WBC (Bld) 19.6 % Low 20.0-45.0 [facility] Comment on above: Performed By: #### 3 1569, , 21995 #### [facility] [address] [place] [address], [facility] MCH (RBC) [Entitic mass] 27.7 pg Normal 27.0-33.0 [facility] Comment on above: Performed By: #### 3 1569, , 61672 #### [facility] [address] [place] [address], [facility] MCHC (RBC) [Mass/Vol] 32.2 g/dL Normal 32.0-35.0 [facility] Comment on above: Performed By: #### 3 156, , 64457 #### [facility] [address] [place] [address], [facility] MCV (RBC) [Entitic vol] 85.8 fL Normal 82.0-98.0 T [facility] Comment on above: Performed By: #### 3 156, , 49602 #### [facility] [address] [place] [address], [facility] Monocytes (Bld) [#/Vol] 0.7 10*3/uL Normal 0.1-1.0 [facility] Comment on above: Performed By: #### 3 156, , 26567 #### [facility] [address] [place] [address], [facility] MONOS 8.1 % Normal 5.0-12.0 [facility] Comment on above: Performed By: #### 3 156, , 04364 #### [facility] [address] [place] [address], [facility] Neutrophils/100 WBC (Bld) 69.9 % Normal 40.0-72.0 [facility] Comment on above: Performed By: #### 3 156, , 31008 #### [facility] [address] Nucleated RBC/100 WBC (Bld) [Ratio] 0 % Normal 0-0 [facility] Comment on above: Performed By: #### 3 1569, 80692, 55116 #### [facility] [address] [place] [place] [address], [facility] PLAT CNT 152 10*3/uL Normal 150-400 [facility] Comment on above: Performed By: #### 3 156, , 88921 #### [facility] [address] [place] [address], [facility] RBC (Bld) [#/Vol] 4.52 10*6/uL Normal 4.20-5.70 [facility] Comment on above: Performed By: #### 3 156, , 04714 #### [facility] [address] [facility] [place] [address], [facility] WBC (Bld) [#/Vol] 9.17 10*3/uL Normal 4.00-10.60 [facility] Comment on above: Performed By: #### 3 156, , 78802 #### [facility] [address] [facility]. [address] HEMOGLOBIN A1Con 03-28-2021 Glucose [Moles/Vol] 183 mmol/L Normal [facility] Comment on above: Performed By: #### 3 156, , 83060 #### [facility] [address] [facility]. [address] HbA1c (Bld) [Mass fraction] 8.0 % High 4.0-6.0 [facility] Comment on above: Performed By: #### 3 156, , 30329 #### [facility] [address] [place] [address], [facility] MAGNESIUM BLOODon 03-28-2021 Magnesium [Mass/Vol] 2.0 mg/dL Normal 1.9-2.7 [facility] Comment on above: Performed By: #### 3 1569, 04677, 30193 #### [facility] [address] Basic Metabolic PanelOrdered By: Tracey Cronin on 02-07-2021 Anion gap [Moles/Vol] 12 mmol/L 9 - 17 mmol/L [employer] Phone: Calcium [Mass/Vol] 8.9 mg/dL 8.6 - 10. 4 mg/dL [employer] Phone: Chloride [Moles/Vol] 102 mmol/L 98 - 10 7 mmol/L [employer] Phone: CO2 [Moles/Vol] 20 mmol/L 20 - 31 mmol/L [employer] Phone: Creatinine [Mass/Vol] 2.55 mg/dL High 0.70 - 1.20 mg/dL [facility] Phone: GFR 30 mL/min Low >60 [employer] Phone: GFR Non- 25 mL/min Low >60 [facility] Phone: Glucose [Mass/Vol] 191 mg/dL High 70 - 99 mg/dL [employer] Phone: Interpretation and review of laboratory results Abnormal [employer] Phone: Potassium [Moles/Vol] 4.7 mmol/L 3.7 - 5.3 mmol/L [employer] Phone: Sodium [Moles/Vol] 134 mmol/L Low 135 - 144 mmol/L [employer] Phone: Urea nitrogen (BldV) [Mass/Vol] 51 mg/dL High 8 - 23 mg/dL [employer] Phone: Urea nitrogen/Creatinine (Bld) [Mass ratio] 20 [facility] Phone: Laboratory - Chemistry and C hemistry - challengeOrdered By: Tracey Cronin on 02-07-2021 GFR/1.73 sq M.predicted MDRD (S/P/Bld) [Vol rate/Area] RECESS. Work Phone: Comment on above: Average GFR for 70 o r more years old: 75 mL/min/1.73sq m Chronic Kidney Disease: <60 mL/min/1.73sq m Kidney failure: <15 mL/min/1.73sq m eGFR calculated using average adult body mass. Additional eGFR calculator available at: http://www.[employer]multiple_crcl_2012.htm Stage 1: Some kidney damage normal GFR Stage 2: Mild kidney damage GFR 60-89 Stage 3: Moderate kidney damage GFR 30-59 Stage 4: Severe kidney damage GFR 15-29 Stage 5: Severe kidney damage GFR <15 ESRD - chronic treatment by dialysis or transplant MagnesiumOrdered By: Tracey weiner on 02-07-2021 Magnesium [Mass/Vol] 2.2 mg/dL 1.6 - 2 .6 mg/dL RECESS. Work Phone: Microscopic UrinalysisOrdere d By: Tracey Cronin on 02-07-2021 - RECESS. Work Phone: Amorphous, UA NOT REPORTED None [employer] [facility] Work Phone: Bacteria, UA 2+ Abnormal None RECESS. Work Phone: Casts UA NOT REPORTED /LPF RECESS. Work Phone: Crystals, UA NOT REPORTED None /HPF [employer] [facility] Work Phone: Epithelial Cells UA 0 TO 2 RECESS. Work Phone: Interpretation and review of laboratory results Abnormal RECESS. Work Phone: Mucus, UA NOT REPORTED None RECESS. Work Phone: Other Observations UA NOT REPORTED NOT REQ. [facility] Work Phone: RBC, UA 2 TO 5 [facility] Work Phone: Renal Epithelial, UA NOT REPORTED 0 /HPF [facility] Work Phone: Trichomonas, UA NOT REPORTED None [facility] Work Phone: WBC, UA GREATER THAN 100 [facility] Work Phone: Yeast, UA NOT REPORTED None [facility] Work Phone: [facility] Work Phone: No Panel InformationOrdered By: Tracey Cronin on 02-07-2021 [facility] Work Phone: PhosphorusOrdered By: Tracey Cronin on 02-07-2021 Phosphate [Mass/Vol] 4.1 mg/dL 2.5 - 4 .5 mg/dL [facility] [employer] Work Phone: UrinalysisOrdered By: Tracey Cronin on 02-07-2021 Bilirubin Urine Negative NEGATIVE [facility] Work Phone: Color, UA YELLOW YELLOW [facility] Work Phone: Glucose, Ur Negative NEGATIVE [facility] Work Phone: Interpretation and review of laboratory results Abnormal [facility] [employer] Work Phone: Ketones Ql (U) Negative NEGATIVE [facility] Work Phone: Leukocyte esterase Test strip Ql (U) LARGE Abnormal NEGATIVE [facility] Work Phone: Nitrite, Urine Negative NEGATIVE [facility] Work Phone: pH, UA 6.0 [facility] Work Phone: Protein, UA 2+ Abnormal NEGATIVE [facility] Work Phone: Specific [place], UA 1.020 [facility] [employer] Work Phone: Turbidity UA CLEAR CLEAR [facility] [employer] Work Phone: Urinalysis Comments NOT REPORTED [facility] Work Phone: Urine Hgb 1+ Abnormal NEGATIVE [employer] Phone: Urobilinogen, Urine Normal Normal [employer] Phone: [employer] Phone: C3 ComplementOrdered By: Cori Cronin on 01-19-2021 Complement C3 122 mg/dL 90 - 180 mg/dL [employer] Phone: C4 ComplementOrdered By: Cori Cronin on 01-19-2021 Complement C4 25 mg/dL 10 - 40 mg/dL [employer] Phone: CBCOrdered By: Tracey Cronin on 01-19-2021 Hematocrit (Bld) [Volume fraction] 34.0 % Low 40.7 - 50.3 % [employer] Phone: Hemoglobin.gastrointest inal spec 1 Ql (Stl) 11.1 g/dL Low 13.0 - 17.0 g/dL [employer] Phone: Interpretation and review of laboratory results Abnormal [employer] Phone: MCH (RBC) [Entitic mass] 28.4 pg 25.2 - 33.5 pg [employer] Phone: MCHC (RBC) [Mass/Vol] 32.6 g/dL 28.4 - 34.8 g/dL [facility] Phone: MCV (RBC) [Entitic vol] 87.0 fL 82.6 - 102.9 fL [employer] Phone: NRBC Automated 0.0 0.0 per 100 WBC [employer] Phone: Platelet distribution width (Bld) [Ratio] 14.4 % 11.8 - 14.4 % [employer] Phone: Platelet mean volume (Bld) [Entitic vol] 11.3 fL 8.1 - 13.5 fL [employer] Phone: Platelets (Bld) [#/Vol] 180 10*3/uL [employer] Phone: RBC (Bld) [#/Vol] 3.91 10*6/uL Low 4.21 - 5.7 7 m/uL [employer] Phone: WBC (Bld) [#/Vol] 8.8 10*3/uL [employer] Phone: RECESS. Work Phone: Comprehensive Metabolic Pane lOrdered By: Tracey Cronin on 01-19-2021 Albumin [Mass/Vol] 3.6 g/dL 3.5 - 5.2 g/dL [employer] Phone: Albumin/Globulin [Mass ratio] 0.8 {ratio} Low [facility] Phone: ALP (Bld) [Catalytic activity/Vol] 113 U/L 40 - 129 U/L [employer] Phone: ALT [Catalytic activity/Vol] 50 U/L High 5 - 41 U/L [employer] Phone: Anion gap [Moles/Vol] 13 mmol/L 9 - 17 mmol/L [employer] Phone: AST [Catalytic activity/Vol] 27 U/L <40 [employer] Phone: Bilirubin [Mass/Vol] 0.27 mg/dL Low 0.3 - 1 .2 mg/dL [employer] Phone: Calcium [Mass/Vol] 8.8 mg/dL 8.6 - 10. 4 mg/dL [employer] Phone: Chloride [Moles/Vol] 97 mmol/L Low 98 - 10 7 mmol/L [employer] Phone: CO2 [Moles/Vol] 21 mmol/L 20 - 31 mmol/L [employer] Phone: Creatinine [Mass/Vol] 3.49 mg/dL High 0.70 - 1.20 mg/dL [employer] Phone: Free PSA/Total PSA [Mass fraction] 7.9 g/dL 6.4 - 8.3 g/dL [employer] Phone: GFR 21 mL/min Low >60 [employer] Phone: GFR Non- 17 mL/min Low >60 [facility] Phone: Glucose [Mass/Vol] 331 mg/dL High 70 - 99 mg/dL [facility] Phone: Interpretation and review of laboratory results Abnormal [facility] Phone: Potassium [Moles/Vol] 4.5 mmol/L 3.7 - 5.3 mmol/L [facility] Phone: Sodium [Moles/Vol] 131 mmol/L Low 135 - 144 mmol/L [employer] Phone: Urea nitrogen (BldV) [Mass/Vol] 69 mg/dL High 8 - 23 mg/dL [facility] Phone: Urea nitrogen/Creatinine (Bld) [Mass ratio] 20 [employer] Phone: [employer] Phone: Creatinine, Random UrineOrde red By: Tracey Cronin on 01-19-2021 Creatinine, Ur 62.4 mg/dL 39.0 - 259.0 mg/dL [facility] Phone: [facility] Phone: Laboratory - Chemistry and C hemistry - challengeOrdered By: Tracey Cronin on 01-19-2021 GFR/1.73 sq M.predicted MDRD (S/P/Bld) [Vol rate/Area] [employer] Phone: Comment on above: Average GFR for 70 o r more years old: 75 mL/min/1.73sq m Chronic Kidney Disease: <60 mL/min/1.73sq m Kidney failure: <15 mL/min/1.73sq m eGFR calculated using average adult body mass. Additional eGFR calculator available at: http://www.[employer]multiple_crcl_2012.htm Stage 1: Some kidney damage normal GFR Stage 2: Mild kidney damage GFR 60-89 Stage 3: Moderate kidney damage GFR 30-59 Stage 4: Severe kidney damage GFR 15-29 Stage 5: Severe kidney damage GFR <15 ESRD - chronic treatment by dialysis or transplant No Panel InformationOrdered By: Tracey Cronin on 01-19-2021 [facility] Work Phone: Protein, urine, randomOrdere d By: Tracey Cronin on 01-19-2021 Protein (U) [Mass/Vol] 52 mg/dL [facility] [employer] Work Phone: Comment on above: No normal range esta blished. RECESS. Work Phone: Urinalysis, Chem onlyOrdered By: Tracey Cronin on 01-19-2021 Bilirubin Urine Negative NEGATIVE [facility] Work Phone: Color, UA YELLOW YELLOW [facility] Work Phone: Glucose, Ur Negative NEGATIVE [facility] Work Phone: Interpretation and review of laboratory results Abnormal [facility] Work Phone: Ketones Ql (U) Negative NEGATIVE [facility] Work Phone: Leukocyte esterase Test strip Ql (U) Negative NEGATIVE [facility] Phone: Nitrite, Urine Negative NEGATIVE [facility] Work Phone: pH, UA 5.5 [facility] Work Phone: Protein, UA 1+ Abnormal NEGATIVE [facility] Work Phone: Specific [place], UA 1.015 [facility] Work Phone: Turbidity UA CLEAR CLEAR [facility] [employer] Work Phone: Urinalysis Comments NOT REPORTED [facility] [employer] Work Phone: Urine Hgb Negative NEGATIVE [facility] [employer] Work Phone: Urobilinogen, Urine Normal Normal [facility] [employer] Work Phone: [facility] [employer] Work Phone: Vitamin D 25 HydroxyOrdered By: Tracey Cronin on 01-19-2021 Interpretation and review of laboratory results Abnormal [facility] Work Phone: Vit D, 25-Hydroxy 28.3 ng/mL Low 30.0 - 100 .0 ng/mL [facility] Work Phone: Comment on above: Reference Range: Vitamin D status Range Deficiency <20 ng/mL Mild Deficiency 20-30 ng/mL Sufficiency 30-100 ng/mL Toxicity >100 ng/mL [facility] Work Phone: Microscopic UrinalysisOrdere d By: Tracey Cronin on 01-13-2021 - [facility] Work Phone: Amorphous, UA NOT REPORTED None [facility] Work Phone: Bacteria, UA 4+ Abnormal None [facility] [employer] Work Phone: Casts UA NOT REPORTED /LPF [facility] [employer] Work Phone: Crystals, UA NOT REPORTED None /HPF [facility] Work Phone: Epithelial Cells UA 2 TO 5 [facility] Work Phone: Interpretation and review of laboratory results Abnormal [facility] Work Phone: Mucus, UA NOT REPORTED None [facility] [employer] Work Phone: Other Observations UA NOT REPORTED NOT REQ. [facility] [employer] Work Phone: RBC, UA 20 TO 50 [facility] Work Phone: Renal Epithelial, UA NOT REPORTED 0 /HPF [facility] Work Phone: Trichomonas, UA NOT REPORTED None [facility] Work Phone: WBC, UA GREATER THAN 100 [facility] Work Phone: Yeast, UA NOT REPORTED None [facility] [employer] Work Phone: [facility] Work Phone: Urinalysis Reflex to Culture Ordered By: Tracey Cronin on 01-13-2021 Bilirubin Urine Negative NEGATIVE [facility] Work Phone: Color, UA YELLOW YELLOW [facility] [employer] Work Phone: Glucose, Ur Negative NEGATIVE [facility] [employer] Work Phone: Interpretation and review of laboratory results Abnormal [facility] [employer] Work Phone: Ketones Ql (U) Negative NEGATIVE [facility] Work Phone: Leukocyte esterase Test strip Ql (U) LARGE Abnormal NEGATIVE [facility] [employer] Work Phone: Nitrite, Urine Negative NEGATIVE [facility] [employer] Work Phone: pH, UA 6.0 [facility] [employer] Work Phone: Protein, UA 2+ Abnormal NEGATIVE [facility] [employer] Work Phone: Specific [place], UA 1.020 [facility] [employer] Work Phone: Turbidity UA CLOUDY Abnormal CLEAR [facility] [employer] Work Phone: Urinalysis Comments NOT REPORTED [facility] Work Phone: Urine Hgb 3+ Abnormal NEGATIVE [facility] [employer] Work Phone: Urobilinogen, Urine Normal Normal [facility] [employer] Work Phone: [facility] [employer] Work Phone: Comprehensive Metabolic Pane kana 06-17-2019 Albumin [Mass/Vol] 3.2 g/dL Low 3.5 - 5.2 g/dL [place] Albumin/Globulin [Mass ratio] 0.8 {ratio} Low [place] ALP [Catalytic activity/Vol] 109 U/L 40 - 129 U/L [place] ALT [Catalytic activity/Vol] 12 U/L 5 - 41 U/L [place] Anion gap [Moles/Vol] 10 mmol/L 9 - 17 mmol/L [place] AST [Catalytic activity/Vol] 13 U/L <40 [place] Bilirubin Ql (U) 0.37 mg/dL 0.3 - 1.2 mg/dL [place] Bun/Cre Ratio 15 [place], [place] Calcium [Mass/Vol] 8.8 mg/dL 8.6 - 10. 4 mg/dL [place] Chloride [Moles/Vol] 97 mmol/L Low 98 - 10 7 mmol/L [place] CO2 [Moles/Vol] 26 mmol/L 20 - 31 mmol/L [place] Creatinine [Mass/Vol] 1.58 mg/dL High 0.7 - 1.2 mg/dL [place] GFR 52 mL/min Low >60 [place] GFR Non- 43 mL/min Low >60 [place] Glucose [Mass/Vol] 163 mg/dL High 70 - 99 mg/dL [place] Potassium [Moles/Vol] 4.4 mmol/L 3.7 - 5.3 mmol/L [place] Protein [Mass/Vol] 7.1 g/dL 6.4 - 8.3 g/dL [place] Sodium [Moles/Vol] 133 mmol/L Low 135 - 144 mmol/L [place] Urea nitrogen [Mass/Vol] 23 mg/dL 8 - 23 mg/dL [place] Lipid Panelon 06-17-2019 Cholesterol [Mass/Vol] 76 mg/dL <200 [place], [place] Comment on above: Cholesterol Guidelines: <200 Desirable 200-240 Borderline >240 Undesirable Cholesterol in HDL [Mass/Vol] 28 mg/dL Low >40 [place] Comment on above: HDL Guidelines: <40 Undesirable 40-59 Borderline >59 Desirable Cholesterol in LDL [Mass/Vol] 25 mg/dL 0 - 130 mg/dL [place] Comment on above: LDL Guidelines: <100 Desirable 100-129 Near to/above Desirable 130-159 Borderline >159 Undesirable Direct (measured) LDL and calculated LDL are not interchangeable tests. Cholesterol in VLDL [Mass/Vol] NOT REPORTED 1 - 30 mg/dL [place] Cholesterol.total/Blanche sterol in HDL [Mass ratio] 2.7 {ratio} <5 [place] Triglyceride [Mass/Vol] 114 mg/dL <150 M [place], [place] Comment on above: Triglyceride Guidelines: <150 Desirable 150-199 Borderline 200-499 High >499 Very high Based on AHA Guidelines for fasting triglyceride, April 2012. Metabolic Panelon 06-17-2019 GFR/1.73 sq M predicted among non-blacks MDRD (S/P/Bld) [Vol rate/Area] [place], [place] Comment on above: Average GFR for 70 o r more years old: 75 mL/min/1.73sq m Chronic Kidney Disease: <60 mL/min/1.73sq m Kidney failure: <15 mL/min/1.73sq m eGFR calculated using average adult body mass. Additional eGFR calculator available at: [email or web address]_[email or web address].htm Stage 1: Some kidney damage normal GFR Stage 2: Mild kidney damage GFR 60-89 Stage 3: Moderate kidney damage GFR 30-59 Stage 4: Severe kidney damage GFR 15-29 Stage 5: Severe kidney damage GFR <15 ESRD - chronic treatment by dialysis or transplant Microalbumin, Uron 9 Albumin/Creatinine DL <= 20 mg/L (24H U) [Mass ratio] 3804 mg/L High <21 [place], [place] Albumin/Creatinine DL <= 20 mg/L (U) [Ratio] 2822 High <17 mcg/mg creat [place] Creatinine [Mass/Vol] 134.8 mg/dL 39 - 2 59 mg/dL [place] Interpretation and review of laboratory results Abnormal [place] Otheron 06-17-2019 Interpretation and review of laboratory results Abnormal [place] T4, Freeon 06-17-2019 Thyroxine, Free 1.34 ng/dL 0.93 - 1.7 ng/dL [place] TSH without Reflexon 019 TSH Qn 0.87 m[IU]/L [place], [place] Vitamin B12on 06-17-2019 Cobalamin (Vitamin B12) [Mass/Vol] 477 pg/mL 232 - 1245 pg/mL [place] Vitamin D 25 Hydroxyon 06-17 Interpretation and review of laboratory results Abnormal [place] Vit D, 25-Hydroxy 9.6 ng/mL Low 30 - 100 ng/mL [place] Comment on above: Reference Range: Vitamin D status Range Deficiency <20 ng/mL Mild Deficiency 20-30 ng/mL Sufficiency 30-100 ng/mL Toxicity >100 ng/mL Vital Signs Date Time Vital Sign Value Performing Clinician Kip perez 09-17-2023 14:00-0500 Body mass index (BMI) [Ratio] 23.33 kg/m2 Debbie Polina EMERGENCY SERVICES DIRECTOR-CONSTRUCTION EQUIPMENT OPERATOR Work Phone: [facility] 09-17-2023 14:00-0500 Body weight 71.67 kg Debbie Polina EMERGENCY SERVICES DIRECTOR-CONSTRUCTION EQUIPMENT OPERATOR Work Phone: [facility] [employer] [facility] 09-17-2023 14:00-0500 Diastolic blood pressure 63 mm[Hg] Debbie Harrington EMERGENCY SERVICES DIRECTOR-CONSTRUCTION EQUIPMENT OPERATOR Work Phone: [facility] [employer] [facility] 09-17-2023 14:00-0500 Heart rate 63 /min Debbie Polina EMERGENCY SERVICES DIRECTOR-CONSTRUCTION EQUIPMENT OPERATOR Work Phone: [facility] 09-17-2023 14:00-0500 Systolic blood pressure 107 mm[Hg] Debbie Polina EMERGENCY SERVICES DIRECTOR-CONSTRUCTION EQUIPMENT OPERATOR [facility] Phone: [facility] En[facility] Encounter Date Encounter Type Care Provider Facility Start: 06-28-2024 End: 06-28-2024 [facility] Start: 06-01-2024 End: 06-01-2024 ambulatory [facility] Start: 04-20-2024 End: 04-20-2024 Refill Chris Kelley MD [facility] Start: 04-02-2024 End: 04-02-2024 ambulatory DEBBIE HARRINGTON [facility] Start: 03-31-2024 End: 03-31-2024 ambulatory NAGI [facility] Start: 02-03-2024 End: 02-03-2024 ambulatory [facility] Start: 02-03-2024 End: 02-03-2024 Encounter for general adult medical examination without abnormal findings [facility] Start: 01-06-2024 End: 01-06-2024 [facility] Start: 12-24-2023 End: 12-24-2023 ambulatory [facility] Start: 12-22-2023 End: 12-22-2023 ambulatory CHRIS RUELAS [facility] Start: 12-17-2023 End: 12-17-2023 ambulatory HERRERA [facility] Start: 12-11-2023 End: 12-11-2023 [facility] Start: 12-10-2023 End: 12-10-2023 ambulatory LUIS FELIPE [facility] Start: 11-26-2023 End: 11-26-2023 [facility] Start: 11-12-2023 End: 11-12-2023 ambulatory [facility] Start: 10-16-2023 Refill Debbie Harrington EMERGENCY SERVICES DIRECTOR-CONSTRUCTION EQUIPMENT OPERATOR Work Phone: [facility] Start: 10-15-2023 End: 10-15-2023 ambulatory M[facility]MAD H. HUERTAS [facility] Start: 09-24-2023 ambulatory RAYMONDIAShira ANNA [facility] Start: 09-24-2023 End: 09-24-2023 ambulatory HERRERA BULLARD [facility] Start: 09-17-2023 End: 09-17-2023 Office outpatient visit 15 minutes Debbie Harrington EMERGENCY SERVICES DIRECTOR-CONSTRUCTION EQUIPMENT OPERATOR Work Phone: [facility] Comment on above: Type 2 diabetes ilene itus with hyperglycemia, without long-term current use of insulin ([facility]) (Primary Dx) Start: 09-17-2023 End: 09-17-2023 ambulatory DEBBIEARIADNE HARRINGTON [facility] Start: 09-04-2023 End: 09-04-2023 ambulatory [facility]THIEU [facility] Start: 09-03-2023 End: 09-03-2023 [facility] Start: 08-12-2023 End: 08-12-2023 [facility] Start: 07-30-2023 Orders Only Debbie Harrington EMERGENCY SERVICES DIRECTOR-CONSTRUCTION EQUIPMENT OPERATOR Work Phone: [facility] Start: 09-23-2022 End: 09-24-2022 ambulatory [facility] Start: 09-23-2022 End: 09-23-2022 Subsequent hospital visit by physician Tracey Cronin DO Work Phone: [facility] Start: 09-16-2022 End: 09-17-2022 ambulatory [facility] Start: 09-16-2022 End: 09-16-2022 Subsequent hospital visit by physician Tracey Cronin DO Work Phone: [facility] Start: 09-09-2022 End: 09-10-2022 ambulatory [facility]ULA [facility] Start: 09-09-2022 End: 09-09-2022 Subsequent hospital visit by physician Tracey Cronin DO Work Phone: [facility] Start: 08-27-2022 End: 08-31-2022 Evaluation and management of inpatient TRACEY CRONIN [facility] Start: 07-27-2022 End: 07-28-2022 ambulatory CHRIS RUELAS Facility:[facility] Start: 04-16-2022 End: 04-17-2022 ambulatory MARU SADLER Facility:[facility] Start: 09-28-2021 End: 09-29-[address] DOCTOR VEGA Facility:[facility] Start: 06-01-2021 End: 06-25-2021 ambulatory TRACEY CRONIN Facility:[facility] Start: 05-08-2021 End: 05-08-2021 Subsequent hospital visit by physician Tracey Cronin DO Work Phone: [facility] Start: 04-23-2021 End: 04-24-2021 ambulatory TRACEY CRONIN Facility:[facility] Start: 02-07-2021 End: 02-07-2021 Subsequent hospital visit by physician Tracey Cronin DO Work Phone: [facility] Start: 01-19-2021 End: 01-19-2021 Subsequent hospital visit by physician Tracey Cronin DO Work Phone: [facility] Start: 01-13-2021 End: 01-13-2021 Subsequent hospital visit by physician Tracey Cronin DO Work Phone: [facility] Start: 06-17-2019 End: 06-17-2019 Subsequent hospital visit by physician Tracey Cronin [facility] Procedures Date Procedure Procedure Detail Performing Clinician Start: 04-02-2024 Follow-up visit Follow-up DEBBIE HARRINGTON Start: 12-10-2023 Follow-up visit Follow-up CHRISTINA HUERTAS Start: 09-17-2023 End: 09-17-2023 Gluc bld gluc mntr dev cleared fda spec home use Debbie Harrington EMERGENCY SERVICES DIRECTOR-CONSTRUCTION EQUIPMENT OPERATOR Work Phone: Start: 09-23-2022 Comprehensive metabo lic panel Manjula [...] Basic metabolic pane l calcium total Tracey Cronin DO Work Phone: Start: 02-07-2021 Urinalysis microscopic only Tracey Cronin DO Work Phone: Start: 02-07-2021 Urnls dip stick/tabl et rgnt auto w/o microscopy Tracey Cronin DO Work Phone: Start: 01-19-2021 Complement antigen e ach component Tracey Cronin DO Work Phone: Start: 01-19-2021 Comprehensive metabo lic panel Tracey Cronin DO Work Phone: Start: 01-19-2021 Urinls dip stick/tab let reagnt non-auto micrscpy Tracey Cronin DO Work Phone: Start: 01-13-2021 Urinalysis microscopic only Tracey Cronin DO Work Phone: Start: 01-13-2021 Urnls dip stick/tabl et rgnt auto w/o microscopy Tracey Cronin DO Work Phone: Start: 06-17-2019 25 hydroxy [...] Treatment Date Care Activity Detail Author Start: 04-02-2025 Adult BMI Screening Adult BMI Screen ing [facility] Start: 04-02-2025 Tobacco Screening Tobacco Screening [facility] Start: 09-16-2024 Adult BMI Screening Adult BMI Screen ing [facility] Start: 09-16-2024 Tobacco Screening Tobacco Screening [facility] Start: 08-10-2024 End: 08-10-2024 Patient encounter procedure 08/10/2024 3:15 PM EST Office Visit [facility] [address] [place] [id number] Chris Guevara MD [address] [place] [address] [facility] Start: 06-18-2024 Adult BMI Screening Adult BMI Screen ing [facility] Start: 06-18-2024 Tobacco Screening Tobacco Screening [facility] Start: 03-14-2024 COVID-19 Vaccine ( season) COVID-19 Vaccine ( season) [facility] Start: 03-14-2024 Influenza vaccination Influenza Vacc ine [facility] Start: 12-22-2023 End: 12-22-2023 Patient encounter procedure 12/22/2023 2:45 PM EDT Office Visit [facility] [address] [place] [address] Chris Guevara MD [address] [place] [address] [facility] Start: 09-17-2023 End: 09-17-2023 Patient encounter procedure 09/17/2023 2:00 PM EST Office Visit [facility] [address] [place] [address] Debbie Harrington, EMERGENCY SERVICES DIRECTOR-CONSTRUCTION EQUIPMENT OPERATOR [address] [place] [address] [facility] Start: 07-27-2023 Lipid panel Lipids [facility] Start: 03-14-2023 COVID-19 Vaccine ( season) COVID-19 Vaccine ( season) [facility] Start: 03-14-2023 Influenza vaccination Influenza Vacc ine [facility] Start: 09-19-2022 End: 09-19-2022 Patient encounter procedure 09/19/2022 Office Visit Urology [facility] Start: 02-11-2022 Influenza vaccination Flu vaccine (# 1) [facility] Start: 02-07-2022 Creatinine measurement Creatinine mo [facility] [email or web address] Phone: Start: 02-07-2022 Potassium monitoring Potassium monit [facility] [email or web address] Phone: Start: 01-19-2022 Creatinine measurement Creatinine mo [facility] [email or web address] Phone: Start: 01-19-2022 Potassium monitoring Potassium monit [facility] Phone: Start: 09-10-2021 COVID-19 Vaccine (3 - Booster for Pfizer series) COVID-19 Vaccine (3 - Booster for Pfizer series) [facility] Start: 03-14-2021 Influenza vaccination Flu vaccine (# 1) [employer] Phone: Start: 02-04-2021 Annual Wellness Visi t (AWV) Annual Wellness Visit (AWV) [facility] [employer] Start: 06-17-2020 Creatinine measurement Creatinine mo nitoring [facility] [employer] Phone: Start: 06-17-2020 Creatinine monitoring Creatinine mon itoring [place] Start: 06-17-2020 Lipid [address] Lipid screen [facility] Work Phone: Start: 06-17-2020 Potassium monitoring Potassium monit [place]ing [place] Start: 03-14-2019 Influenza vaccination Flu vaccine (# 1) [place] Start: 2009 Fall Risk Screening Fall Risk Screen [facility] [employer] [facility] Start: 2009 Pneumococcal 65+ yea rs Vaccine (1 of 1 - PPSV23) Pneumococcal 65+ years Vaccine (1 of 1 - PPSV23) [place] Start: 1994 Administration of varicella zoster vaccine Zoster (Shingles) Vaccine (1 of 2) [facility] [employer] [facility] Start: 1994 Shingles Vaccine (1 of 2) Shingles Vaccine (1 of 2) [facility] [employer] Phone: Start: 10-18-1963 DTaP,Tdap and Td Vaccines (1 - Tdap) DTaP,Tdap and Td Vaccines (1 - Tdap) [facility] [employer] [facility] Start: 10-18-1963 DTaP/Tdap/Td vaccine (1 - Tdap) DTaP/Tdap/Td vaccine (1 - Tdap) [facility] [employer] Start: 10-18-1963 Shingles vaccine (1 of 2) [facility]ingles vaccine (1 of 2) [facility] [employer] Start: 1956 COVID-19 Vaccine (1) COVID-19 Vaccin e (1) [facility] [employer] Phone: Start: 1956 Depression Screen [facility] Start: 1956 Depression Screening Depression Scre ening [facility] [employer] [facility] Start: 1944 Hepatitis C screening Hepatitis C sc malissa [employer] Phone: Start: 1945 Medicare Annual Wellness Visit Medicare Annual Wellness Visit [facility] End: 01-19-2021 GERDA profile GERDA profile Lab Routine Once for 1 Occurrences starting 01/19/2021 until 01/19/2021 [employer] Phone: Comment on above: Once for 1 Occurrenc es starting 01/19/2021 until 01/19/2021 GERDA profile GERDA profile Lab Routine 01/19/2021 4:00 PM EDT [employer] Phone: End: 01-13-2021 Culture, Urine Culture, Urine Microbiology Routine Once for 1 Occurrences starting 01/13/2021 until 01/13/2021 [employer] Phone: Comment on above: Once for 1 Occurrenc es starting 01/13/2021 until 01/13/2021 Culture, Urine [employer] Phone: End: 05-08-2021 Culture, Urine Culture, Urine Microbiology Routine Once for 1 Occurrences starting 05/08/2021 until 05/08/2021 [employer] Phone: Comment on above: Once for 1 Occurrenc es starting 05/08/2021 until 05/08/2021 End: 01-19-2021 Hepatitis B Core Antibody, Total Hepatitis B Core Antibody, Total Lab Routine Once for 1 Occurrences starting 01/19/2021 until 01/19/2021 [employer] Phone: Comment on above: Once for 1 Occurrenc es starting 01/19/2021 until 01/19/2021 Hepatitis B Core Antibody, Total Hepatitis B Core Antibody, Total Lab Routine 01/19/2021 4:00 PM EDT [employer] Phone: End: 01-19-2021 Hepatitis C Antibody Hepatitis C Antibody Lab Routine Once for 1 Occurrences starting 01/19/2021 until 01/19/2021 [employer] Phone: Comment on above: Once for 1 Occurrenc es starting 01/19/2021 until 01/19/2021 Hepatitis C Antibody Hepatitis C Antibody Lab Routine 01/19/2021 4:00 PM EDT [employer] Phone: End: 01-19-2021 Immunofixation serum profile Immunofixation serum profile Lab Routine Once for 1 Occurrences starting 01/19/2021 until 01/19/2021 [employer] Phone: Comment on above: Once for 1 Occurrenc es starting 01/19/2021 until 01/19/2021 Immunofixation serum profile Immunofixation serum profile Lab Routine 01/19/2021 4:26 PM EDT [employer] Phone: End: 01-19-2021 Cowden/Lambda Free Lt Chains, Serum Quant Cowden/Lambda Free Lt Chains, Serum Quant Lab Routine Once for 1 Occurrences starting 01/19/2021 until 01/19/2021 [employer] Phone: Comment on above: Once for 1 Occurrenc es starting 01/19/2021 until 01/19/2021 Cowden/Lambda Free Lt Chains, Serum Quant Cowden/Lambda Free Lt Chains, Serum Quant Lab Routine 01/19/2021 4:00 PM EDT [employer] Phone: Protein Electrophoresis, Urine Protein Electrophoresis, Urine Lab Routine 01/19/2021 4:00 PM [email or web address] Phone: End: 01-19-2021 PTH, Intact PTH, Intact Lab Routine Once for 1 Occurrences starting 01/19/2021 until 01/19/2021 [employer] Phone: Comment on above: Once for 1 Occurrenc es starting 01/19/2021 until 01/19/2021 PTH, Intact PTH, Intact Lab Routine 01/19/2021 4:00 PM [email or web address] Phone: End: 01-19-2021 Vitamin D 1,25 Dihydroxy Vitamin D 1,25 Dihydroxy Lab Routine Once for 1 Occurrences starting 01/19/2021 until 01/19/2021 [facility] Work Phone: Comment on above: Once for 1 Occurrenc es starting 01/19/2021 until 01/19/2021 Vitamin D 1,25 Dihydroxy Vitamin D 1,25 Dihydroxy Lab Routine 01/19/2021 4:00 PM EDT [employer] Work Phone: Immunizations Immunization Date Immunization Notes Care Provider Domenica vernon 08-12-2019 influenza virus vaccine, unspecified formulation Debbie Harrington EMERGENCY SERVICES DIRECTOR-CONSTRUCTION EQUIPMENT OPERATOR Work Phone: [facility] [employer] System Payers Date Payer Category Payer Unknown [id number] 2022 Unknown [id number] 2017 Medicare MEDICARE MEDICAR E PART A AND B xxxxxxxxxx 2017-Present [phone] [address] [address] [place] [address] xxxxxxxxxx [id number] 2017 Private Health Insurance [employer] xxxxxxxx 2017-Present [phone] [address] [place] [address] xxxxxxxx [id number] 2017 Private Health Insurance [id number] 2010 Medicare MEDICARE MEDICAR E PART A & B [id number] 2010-Present [phone] [address] [place] [address] [id number] 1959 Medicare [id number] 1959 Private Health Insurance [id number] 1944 Unknown [id number] .647 1944 Unknown [id number] .647 1944 Unknown [id number] .593 1944 Unknown [id number] .593 1944 Unknown [id number] .593 1944 Unknown [id number] .593 1944 Unknown [id number] [id number] .173 1944 Unknown [id number] [id number] .173 1944 Unknown [id number] [id number] .173 1944 Unknown [id number] 2.16.840.1.023550.3.579.2 .173 1944 Unknown [id number] [id number] .1286 1944 Unknown [id number] .1286 1944 Unknown [id number] [id number] .1286 1944 Unknown [id number] [id number] .1286 Unknown [id number] Social History Date Type Detail Facility Start: 05-09-2014 End: 10-15-2022 Tobacco smoking status NHIS Never smoker [facility] Start: 05-09-2014 End: 09-19-2022 Alcohol intake Current non-drinker of alcohol (finding) [place], [place] Start: 1945 [facility] Start: 08-27-2022 History SDOH Alcohol Std Drinks 0 [facility] [employer] Work Phone: Start: 08-17-2022 End: 08-27-2022 Exposure to SARS-CoV-2 (event) Not sure [facility] [employer] Start: 10-15-2022 Tobacco use and exposure Smoke less tobacco [facility] Start: 06-18-2023 End: 04-02-2024 Alcohol intake Lifetime non-drinker (finding) [facility] Start: 06-18-2023 End: 12-22-2023 History of Social function Divided Start: 06-18-2023 End: 12-22-2023 [facility] Procedure Code Equipment Code Equipment Origin al Text Equipment Identifier Dates Once daily [id number] Start: 04-16-2023 Clinical Notes 08-12-2023 to 06-28-2024 Debbie Harrington, SAÚL-CONSTRUCTION EQUIPMENT OPERATOR - 09/17/2023 2:00 PM EST Note Date & Type Note Facility 06-28-2024 Note [place] [facility] - [facility] Subjective Bertha Xie is a 78 y.o. year old male patient being seen for 6 mo follow up chronic diastolic heart failure, hypertension, CAD, bradycardia, and chronic DVT. Echo has not been performed since last visit in December 2023. He denies chest pain, SOB, palpitations, and lightheadedness/syncope. Says sometimes in the winter time he has mild episodes of epistaxis from the dryness. Nothing recent. 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 (CMS/HCC) Vitamin D deficiency Iron deficiency anemia Atrial fibrillation (CMS/HCC) CKD (chronic kidney disease) stage 4, GFR 15-29 ml/min (CMS/HCC) Hypertensive chronic kidney disease with stage 1 through stage 4 chronic kidney disease, or unspecified chronic kidney disease Monoclonal gammopathy History of cardiovascular disorder Proteinuria Shoulder pain Urinary tract infectious disease Increase in serum creatinine from prior measurement 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 He is a 78-year-old man with history of coronary artery disease status post coronary artery bypass graft surgery in 2007. He has done well after that with no requirement for further interventions. His last stress test in 2016 showed no evidence of ischemia. He is maintained on aspirin and statin therapy. He has history of hypertension on medications. He has history of recurrent TIAs related to hypertension, last in 2013. He has history of left leg DVT many years ago. In September 2020 he was discovered to have new onset atrial fibrillation and was started on anticoagulation therapy and amiodarone. Currently has been doing well. He has no chest pain. He has no significant shortness of breath on moderate exertion. He has chronic lower extremity edema for which he wears compression stockings. He has no palpitations. No dizziness and no lightheadedness. No syncope. Review of Systems Cardiovascular: Positive for leg swelling. Neurological: Positive for loss of balance. All other systems reviewed and are negative. Objective Visit Vitals BP 158/72 (BP Location: Right arm, Patient Position: Sitting) Pulse 55 Ht 1.753 m (5' 9 ) Wt 77.1 kg (170 lb) SpO2 98% BMI 25.10 kg/m??? Smoking Status Never BSA 1.94 m??? Physical Exam Constitutional: Appearance: He is well-developed. He is not ill-appearing. HENT: Head: Normocephalic and atraumatic. Nose: Nose normal. Eyes: General: No scleral icterus. Pupils: Pupils are equal, round, and reactive to light. Neck: Thyroid: No thyromegaly. Vascular: No JVD. Cardiovascular: Rate and Rhythm: Regular rhythm. Bradycardia present. Pulses: Radial pulses are 2+ on the right side and 2+ on the left side. Heart sounds: Normal heart sounds. No murmur heard. No friction rub. No gallop. Pulmonary: Effort: Pulmonary effort is normal. No respiratory distress. Breath sounds: Normal breath sounds. No wheezing or rales. Chest: Chest wall: No tenderness. Abdominal: General: Bowel sounds are normal. There is no distension. Palpations: Abdomen is soft. Tenderness: There is no abdominal tenderness. Musculoskeletal: General: No swelling. Cervical back: Neck supple. Right lower le+ Pitting Edema present. Left lower le+ Pitting Edema present. Skin: General: Skin is warm and dry. Neurological: General: No focal deficit present. Mental Status: He is alert and oriented to person, place, and time. Psychiatric: Mood and Affect: Mood normal. Behavior: Behavior is cooperative. Judgment: Judgment normal. Allergies No Known Allergies Medications Current Outpatient Medications: amiodarone (Pacerone) 200 mg tablet, TAKE 1 TABLET BY MOUTH IN THE MORNING, Disp: 90 tablet, Rfl: 3 amLODIPine (Norvasc) 10 mg tablet, Take 1 tablet (10 mg) by mouth in the morning., Disp: 90 tablet, Rfl: 3 aspirin 81 mg EC tablet, Take 1 tablet every day by oral route., Disp: , Rfl: atorvastatin (Lipitor) 20 mg tablet, Take 1 tablet by mouth once daily, Disp: 90 tablet, Rfl: 0 bumetanide (Bumex) 2 mg tablet, Take 1 tablet by mouth once daily, Disp: 9 (more content not included)... [facility] 06-01-2024 Note Subjective Patient ID: Bertha Xie is a 78 y.o. male who presents for Follow-up, Groin Pain, and Back Pain. Bertha is a very pleasant 78-year-old male who comes in today for a follow-up visit. He states that he has been having significant amount of groin pain. Is mostly in the left groin that seems to be traveling down his abdomen especially when he turns. He states that otherwise he has been doing well. He has not had any significant issues. He is breathing is seems to be well-controlled. He did not have any other problems to describe. Review of Systems Constitutional: No fevers/Chills, no [...] or bleeding Objective Physical Exam VITALS: BP 123/72 (BP Location: Left arm, Patient Position: Sitting, BP Cuff Size: Adult) Pulse 56 Temp 36.3 ???C (97.4 ???F) (Oral) Resp 14 Ht 1.753 m (5' 9 ) Wt 76.3 kg (168 lb 3.2 oz) SpO2 97% BMI 24.84 kg/m??? General: alert and oriented x3, No [...] , BMPR1A Lab Results Component Value Date HGBA1C 9.3 (H) 09/24/2023 CHOL 70 (L) 01/04/2021 TRIG 54 01/04/2021 HDL 31 01/04/2021 LDL 28 01/04/2021 LDL 39 01/04/2021 MICROALBCREA 1,170.5 (H) 04/13/2020 Documentation on 03/26/2024 Component Date Value Ref Range Status External Phosphorus 03/22/2024 3.9 Final External Magnesium 03/22/2024 1.8 mg/dL Final External Fasting Glucose 03/22/2024 145 mg/L Final External Creatinine, Serum 03/22/2024 2.92 mg/mL Final External BUN 03/22/2024 47.0 mg/dL Final External Potassium 03/22/2024 4.4 mmol/L Final External Sodium, serum 03/22/2024 137 mmol/L Final External CO2, total 03/22/2024 32.6 mEq/L Final External Chloride 03/22/2024 100 mmol/L Final External Calcium 03/22/2024 8.7 mg/dL Final External Albumin 03/22/2024 3.0 Final Assessment/Plan Diagnoses and all orders for this visit: Type 2 diabetes mellitus with stage 4 chronic kidney disease, without long-term current use of insulin ([facility]) Primary hypertension Comments: Pressure is under good control and stable Chronic right shoulder pain Comments: Significant arthritis of the shoulder. I like for him to use topical agents like Voltaren gel.Get applied to the area on the shoulder. Left inguinal pain Comments: To refer him to general surgery for evaluation. Orders: - Ambulatory referral to General Surgery; Future Chronic diastolic heart failure (CMS/HCC) Comments: Stable at like for him to continue with the current therapy. Diagnosis Plan 1. Type 2 diabetes mellitus with stage 4 chronic kidney disease, without long-term current use of insulin (CMS/HCC) 2. Primary hypertension Pressure is under good control and stable 3. Chronic right shoulder pain Significant arthritis of the shoulder. I like for him to use topical agents like Voltaren gel.Get applied to the area on the shoulder. 4. Left inguinal pain Ambulatory referral to General Surgery To refer him to general surgery for evaluation. 5. Chronic diastolic heart failure (CMS/HCC) Stable at like for him to continue with the current therapy. Orders Placed This Encounter Procedures Ambulatory referral to General Surgery Standing Status: Future Standing Expiration Date: 11/29/2024 Referral Priority: Routine Referral Type: Consultation Referral Reason: Specialty Services Required Requested Specialty: General Surgery Number of Visits Requested: 1 Follow up in about 4 months (around 09/29/2024). [facility] 09-18-2024 Note Attestation signed by Herrera Bullard MD at 04/04/2024 7:22 PM I saw, interviewed, examined and evaluated the patient with Nephrology fellow Dr. Nagi Barber. I participated in the medical management of the patient. I reviewed the fellow's note and agree with the fellow's documentation in the note. Herrera Bullard MD Faculty, Division of Nephrology, Department of Medicine, [facility] [employer]. [facility] Patient: Bertha Xie; 78 y.o. Visit date: 03/31/24 Reason for today's visit: Follow up for CKD stage 4 and Hypertension SUBJECTIVE: BACKGROUND: Bertha Xie is a 78 y.o. 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 Today 03/31/24 patient presents for a follow-up visit: Feels okay today. No major changes to health since prior visit. Denies fever, chills, CP, SOB, n/v/d. He does have some back pain and shoulder pain. CMP from 03/26/24: Na 137, K 4.4, Cl 100, CO2 32, BUN 47, Cr 2.92, Ca 8.7, Alb 3.0, Phos 3.9, Mg 1.8 He is on metoprolol 50 mg BID and amlodipine 10 mg Review of systems In addition to above: Review of Systems Constitutional: Negative for appetite change, fatigue and unexpected weight change. HENT: Negative for congestion and facial swelling. Respiratory: Negative for cough and shortness of breath. Cardiovascular: Positive for leg swelling. Negative for chest pain and palpitations. Gastrointestinal: Negative for abdominal distention, abdominal pain, constipation, diarrhea, rectal pain and vomiting. Endocrine: Negative for polydipsia and polyuria. Genitourinary: Negative for decreased urine volume, difficulty urinating, dysuria, flank pain, frequency, hematuria, scrotal swelling and urgency. Musculoskeletal: Negative for arthralgias and joint swelling. Skin: Negative for color change, rash and wound. Allergic/Immunologic: Negative for immunocompromised state. Neurological: Negative for dizziness, syncope and headaches. Psychiatric/Behavioral: Negative for sleep disturbance. The patient is not nervous/anxious. OBJECTIVE: Visit Vitals BP 109/71 (BP Location: Left arm, Patient Position: Sitting) Pulse 65 Temp 36.6 ???C (97.9 ???F) Resp 16 Ht 1.753 m (5' 9 ) Wt 74.9 kg (165 lb 3.2 oz) BMI 24.40 kg/m??? Smoking Status Never BSA 1.91 m??? Physical Exam Constitutional: General: He is not in acute distress. Appearance: Normal appearance. HENT: Head: Normocephalic and atraumatic. Eyes: General: No scleral icterus. Extraocular Movements: Extraocular movements intact. Cardiovascular: Rate and Rhythm: Normal rate and regular rhythm. Heart sounds: No murmur heard. Pulmonary: Breath sounds: Normal breath sounds. No wheezing or rales. Abdominal: Tenderness: There is no abdominal tenderness. Musculoskeletal: Right lower leg: No edema. Left lower leg: Edema (chronic) present. Neurological: Mental Status: He is alert. Psychiatric: Mood and Affect: Mood normal. Recent Labs I have reviewed the patient's most recent labs as listed below: Chemistry: Lab Results Component Value Date NA 134 (L) 09/24/2023 K 5.0 09/24/2023 CL 99 09/24/2023 CO2 28 09/24/2023 CO2 30 02/20/2022 ANIONGAP 12 09/24/2023 BUN 52 (H) 09/24/2023 CREATININE 2.97 (H) 09/24/2023 EGFR 20.9 (L) 09/24/2023 GLU 165 (H) 02/20/2022 CALCIUM 8.9 09/24/2023 MG 2.0 09/24/2023 PHOS 3.4 09/24/2023 ALBUMIN 3.7 09/24/2023 PROT 7.0 09/24/2023 PROT 7.4 09/24/2023 AST 25 09/24/2023 ALT 39 09/24/2023 BILITOT 0.4 09/24/2023 ALKPHOS 129 (H) 09/24/2023 Hematology & Iron studies: Lab Results Component Value Date WBC 8.84 09/24/2023 HGB 14.3 09/24/2023 HCT 42.3 09/24/2023 MCV 91.4 09/24/2023 PLT 153 09/24/2023 IRON 41 (L) 11/21/2021 UIBC 230 11/21/2021 FETIBC 271 11/21/2021 IRONSAT 15 (L) 11/21/2021 FERRITIN 157 11/21/2021 Urine studies: Urine chemistry Lab Results Component Value Date PROTUR 48.5 09/24/2023 PROTUR 48.5 09/24/2023 PROTUR 48.5 09/24/2023 CREATUR 73.0 09/24/2023 MICROALBCREA 1,170.5 (H) 04/13/2020 2. Urinalysis & Microscopy: Lab Results Component Value Date COLORU YELLOW 08/22/2021 CLARITYU CLEAR 08/22/2021 SPECGRAVU 1.012 (L) 08/22/2021 PROTUR 48.5 09/24/2023 PROTUR 48.5 09/24/2023 PROTUR 48.5 09/24/2023 LEUKOCYTESU NEGATIVE 08/22/2021 NITRITEU NEGATI (more content not included)... [facility] 02-03-2024 Note Subjective : Chief Complaint: Bertha Xie is an 78 y.o. male here for an annual wellness visit. Bertha is a very pleasant 78-year-old male who comes in today for follow-up for Medicare annual visit and complaints of his chronic medical illnesses. He has been doing reasonably well. He recently twisted his ankle 2 weeks ago. And has had persistent pain in that ankle. He did not get it x-rayed he states that initially for the first 2 days he could not ambulate whatsoever. But then now he is able to ambulate with a little bit of a limp. He is otherwise been feeling well. He states that he is right shoulder still bothers him quite a bit. He wonders if he can get an x-ray. He states that he saw orthopedics. But I cannot figure out who we saw. He does see nephrology on a regular basis. His chronic kidney disease stage IV has been stable. He does see endocrinology for his diabetes. He recently saw them and they have made some changes to his regimen. He did not have any other significant problems today. We did a Medicare annual visit today also. I did recommend that he take the shingles vaccine. 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 (CMS/HCC) Vitamin D deficiency Iron deficiency anemia Atrial fibrillation (CMS/HCC) CKD (chronic kidney disease) stage 4, GFR 15-29 ml/min (CMS/HCC) Hypertensive chronic kidney disease with stage 1 through stage 4 chronic kidney disease, or unspecified chronic kidney disease Edema of extremities Monoclonal gammopathy Moderate malnutrition (CMS/HCC) History of cardiovascular disorder Proteinuria Shoulder pain Urinary tract infectious disease Increase in serum creatinine from prior measurement 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 (CMS/HCC) Past Medical History: Diagnosis Date Atrial fibrillation (CMS/HCC) Chronic kidney disease Coronary artery disease Deep vein thrombosis (CMS/HCC) Diabetes mellitus (CMS/HCC) Heart disease Hyperlipidemia Hypertension Preinfarction syndrome (CMS/HCC) 04/29/2011 Past Surgical History: Procedure Laterality Date CHOLECYSTECTOMY CORONARY ARTERY BYPASS GRAFT CT GUIDED PERCUTANEOUS BIOPSY BONE 04/26/2021 CT GUIDED PERCUTANEOUS BIOPSY BONE SOUSA CONVERSION CT GUIDED PERCUTANEOUS BIOPSY RENAL RIGHT Right 11/26/2023 CT GUIDED PERCUTANEOUS BIOPSY RENAL RIGHT 11/26/2023 HERNIA REPAIR No Known Allergies Social History [...] Social Determinants of Health Financial Resource Strain: Low Risk (02/03/2024) Overall Financial Resource Strain (CARDIA) Difficulty of Paying Living Expenses: Not hard at all Food Insecurity: No Food Insecurity (02/03/2024) Hunger Vital Sign Worried About Running Out of Food in the Last Year: Never true Ran Out of Food in the Last Year: Never true Transportation Needs: No Transportation Needs (02/03/2024) Transportation Lack of Transportation (Medical): No Lack of Transportation (Non-Medical): No Physical Activity: Sufficiently Active (08/12/2023) Exercise Vital Sign Days of Exercise per Week: 3 days Minutes of Exercise per Session: 50 min Stress: No Stress Concern Present (02/03/2024) [employer] - Occupational Stress Questionnaire Feeling of Stress : Not at all Social Connections: Unknown (08/12/2023) Social Connection and Isolation Panel [NHANES] Frequency of Communication with Friends and Family: More than three times a week Frequency of Social Gatherings with Friends and Family: More than three times a week Attends Judaism Services: Patient declined Active Member of Clubs or Organizations: Patient declined Attends Club or Organization Meetings: Patient declined Marital Status: Patient declined Intimate Partner Violence: Not At Risk (12/11/2023) Humiliation, Afraid, Rape, and Kick questionnaire Fear of Current or Ex-Partner: No Emotionally Abused: No Physically Abused: No Sexually Abused: No Housing Stability: Low Risk (08/12/2023) Housing Stability Vital Sign Unable to Pay for Housing in the Last Year: No Number of Places Lived in (more content not included)... [facility] 01-06-2024 Note Cardiovascular Medic ine [facility] SUBJECTIVE Chief Complaint Patient presents with Congestive Heart Failure Coronary Artery Disease Atrial Fibrillation Hypertension Hyperlipidemia Bertha Xie is a 78 y.o. male here for routine follow-up. PMHx: Diastolic heart failure, CAD s/p CABG 2007, paroxysmal a.fib, HTN, hx TIA/stroke, chronic DVT, CKD, HLD, DM Patient here for 8 mo follow up hypertension, diastolic heart failure, CAD, and PAF. Denies chest pain, SOB, palpitations, lightheadedness/syncope, and bleeding on Eliquis and aspirin. Says his LE edema remains unchanged. Had a bunch of routine labs a few weeks ago. Since last seen he had a kidney biopsy - was done by oncology. He has some leg edema, this is stable. Denies c/o CP, dyspnea, orthopnea, PND, dizziness/LH, palpitations, syncope. One of his daughters is still in [place]. He has 5 grandchildren. 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 ([facility]/HCC) Vitamin D deficiency Iron deficiency anemia Atrial fibrillation ([facility]/HCC) CKD (chronic kidney disease) stage 4, GFR 15-29 ml/min (CMS/HCC) Hypertensive chronic kidney disease with stage 1 through stage 4 chronic kidney disease, or unspecified chronic kidney disease Edema of extremities Monoclonal gammopathy Moderate malnutrition (CMS/HCC) History of cardiovascular disorder Proteinuria Shoulder pain Urinary tract infectious disease Increase in serum creatinine from prior measurement 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 (CMS/HCC) Past Medical History: Diagnosis Date Atrial fibrillation ([facility]/HCC) Chronic kidney disease Coronary artery disease Deep vein thrombosis ([facility]/HCC) Diabetes mellitus ([facility]/HCC) Heart disease Hyperlipidemia Hypertension Preinfarction syndrome ([facility]/HCC) 04/29/2011 Family History Problem Relation Name Age of Onset Stroke Mother Heart attack Mother Prostate cancer Father Diabetes Father No Known Problems Sister Prostate cancer Brother Stomach cancer Paternal Grandfather Social History Tobacco Use Smoking status: Never Smokeless tobacco: Never Vaping Use Vaping Use: Never used Substance Use Topics Alcohol use: Not Currently Drug use: Never No Known Allergies Review of Systems Cardiovascular: Positive for leg swelling. Neurological: Positive for loss of balance. All other systems reviewed and are negative. OBJECTIVE Visit Vitals BP 106/52 (BP Location: Left arm, Patient Position: Sitting) Pulse 57 Ht 1.753 m (5' 9 ) Wt 75.8 kg (167 lb) SpO2 98% BMI 24.66 kg/m??? Smoking Status Never BSA 1.92 m??? Medications: Current Outpatient Medications: amiodarone (Pacerone) 200 mg tablet, Take 1 tablet (200 mg) by mouth in the morning., Disp: 90 tablet, Rfl: 3 amLODIPine (Norvasc) 10 mg tablet, Take 1 tablet (10 mg) by mouth in the morning., Disp: 90 tablet, Rfl: 3 aspirin 81 mg EC tablet, Take 1 [...] dulaglutide (Trulicity) 1.5 mg/0.5 mL pen injector, 3 mg. 1 time a week. On Friday., Disp: , Rfl: Eliquis 2.5 mg tablet, TAKE 1 TABLET BY MOUTH IN THE MORNING AND AT BEDTIME, Disp: 60 tablet, Rfl: 11 glipiZIDE (Glucotrol) 10 mg tablet, Take 1 tablet by mouth in the morning and at bedtime., Disp: , Rfl: Lantus Solostar U-100 Insulin 100 unit/mL (3 mL) pen, INJECT 15 UNITS SUBCUTANEOUSLY AT BEDTIME, Disp: , Rfl: metoprolol tartrate (Lopressor) 50 mg tablet, Take 1 tablet (50 mg) by mouth in the morning and at bedtime., Disp: 180 tablet, Rfl: 3 primidone (Mysoline) 50 mg tablet, TAKE 1 TABLET BY MOUTH ONCE DAILY AT BEDTIME, Disp: 90 tablet, Rfl: 0 tamsulosin (Flomax) 0.4 mg 24 hr capsule, Take 1 capsule (0.4 mg) by mouth 2 times daily., Disp: 60 capsule, Rfl: 2 Physical Exam Constitutional: Appearance: Normal appearance. He is normal weight. HENT: Right Ear: External ear normal. Left Ear: External ear normal. Eyes: Extraocular Movements: Extraocular movements intact. Pupils: Pupils are equal, round, and reactive to light. Neck: Vascular: No carotid bruit. Comments: No JVD Cardiovascular: Rate and Rhythm: Normal rate and regular rhythm. Pulses: Normal pulses. Heart sounds: Normal heart sounds. Pulmonary: Eff (more content not included)... [facility] 01-06-2024 Note Patient here for 8 m o follow up hypertension, diastolic heart failure, CAD, and PAF. Denies chest pain, SOB, palpitations, lightheadedness/syncope, and bleeding on Eliquis and aspirin. Says his LE edema remains unchanged. Had a bunch of routine labs a few weeks ago. Review of Systems Cardiovascular: Positive for leg swelling. Neurological: Positive for loss of balance. All other systems reviewed and are negative. [facility] 12-24-2023 Note History of present i llness Mr. Xie, a soon-to-be 78-year-old male, was referred to our clinic by the nephrology department due to concerns regarding abnormal protein levels in his blood. His medical history is significant for triple coronary artery bypass graft in 2007, diabetes, chronic kidney disease, high blood pressure, and gallbladder surgery. He has never smoked. 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 His family medical history reveals prostate cancer in his father and brother, breast cancer in his aunt, and stomach cancer in his grandfather. He is currently on amlodipine for blood pressure management. Mr. Xie's recent lab results include a creatinine level of 2.97, indicating an estimated glomerular filtration rate (EGFR) of 20%. Serum protein electrophoresis conducted on September 23 displayed a prominent albumin peak with normal alpha 1 and alpha 2, beta, and gamma globulins fractions. Immunofixation identified IgA levels slightly elevated at 565, while IgG and IgM levels were within normal ranges at 1540 and 102, respectively. Serum immunofixation exhibited a normal pattern, and kappa and lambda light chains were 141 and 88, respectively, with a normal ratio of 1.59. Urine immunofixation did not reveal any abnormal bands. His complete blood count (CBC) showed a hemoglobin level of 14.3, platelets at 153, and white blood cells (WBC) at 8.84. His diabetes is noted with an HbA1c of 9.3. Approximately two and a half years ago, Mr. Xie underwent a bone marrow biopsy, which returned negative results. In 2020, urine protein electrophoresis detected IgG lambda, but a repeat test this year showed no abnormalities. He is also taking baby aspirin as a blood thinner. In 2020 his serum protein electrophoresis did not indicate any evidence of monoclonal protein. Diagnostic Test Results - Creatinine: 2.97 - Estimated Glomerular Filtration Rate (eGFR): 20% - Serum Protein Electrophoresis (SPEP) Date: September 23/2024 - Prominent albumin peak - Normal fraction of alpha 1 and alpha 2, beta, and gamma globulins - Immunofixation - IgA: Elevated at 565 - IgG: Normal at 1540 - IgM: Normal at 102 - Serum immunofixation: Normal pattern - Cowden light chains: 141 - Lambda light chains: 88 - Cowden/Lambda ratio: Normal at 1.59 - Urine Immunofixation - No abnormal bands - Complete Blood Count (CBC) - Hemoglobin: 14.3 - Platelets: 153 - White Blood Cells (WBC): 8.84 - HbA1c: 9.3 - Bone Marrow Biopsy in 2020: Negative - Urine Protein Electrophoresis (2020): Showed IgG lambda, but 2023 testing showed nothing abnormal. Physical exam GEN: Healthy appearing, well-developed, NAD. PSYCH: Good Judgment. AOx3. Normal memory, mood, and affect. HEENT: -Head: NC/AT; -Eyes: No discharge or redness; -Ears: External ears are normal. -Normal nares. -Normal gums, mucosa, palate CV: RRR, no murmur LUNGS: CTA, no r/c ABD: Soft, NT, NBS, no masses or organomegaly. SKIN: Warm, well perfused. No skin rashes or abnormal lesions. MSK: Normal gait. No deformities. EXT: No clubbing, cyanosis, or edema. NEURO: Ambulating with no limitations. No focal deficits Assessment and Plan 1. Abnormal protein in blood and suspicion of multiple myeloma: - The patient was referred to the oncology clinic due to abnormal proteins in the blood and suspicion of multiple myeloma. However, after reviewing the blood test results, it appears that the increase in kappa and lambda light chains is likely due to kidney dysfunction rather than a plasma cell disorder. His previous bone marrow biopsy in 2020 was negative, and recent (2023) serum and urine immunofixation showed no abnormal bands. Abnormal urine immunofixation as noted in 2020 is sometimes a false positive result due to renal disease itself. Renal biopsy in 12/2023 did not indicate any evidence of MGRS and renal disease is attributed to diabetes and hypertension. We will monitor paraproteins. Patient requests an appointment no sooner than 6 months. 2. Chronic kidney disease (CKD): - The patient has a history of CKD with a creatinine of 2.97 and an estimated glomerular filtration rate (EGFR) of 20%. The cause of the patient's kidney dysfunction is not entirely clear, but it may be related to diabetes and high blood pressure. Kidney biopsy 12/2023 is c/w diabetic and vascular disease. - Plan: Continue monitoring kidney function and manage diabetes and hypertension to prevent further decline in kidney function. 3. Family history of cancer: - The patient has a family history of prostate cancer (father and brother), breast cancer (sister), and stomach cancer (grandfather). - Plan: Encourage the patient to maintain regular cancer screenings as appropriate for age and risk factors. Provide education on cancer risk reduction strategies, such a (more content not included)... [facility] 12-17-2023 Note Attestation signed by Herrera Bullard MD at 12/20/2023 1:56 PM I saw, interviewed, examined and evaluated the patient with Nephrology fellow Dr. Tomy Stone. I participated in the medical management of the patient. I reviewed the fellow's note and agree with the fellow's documentation in the note. Herrera Bullard MD Faculty, Division of Nephrology, Department of Medicine, [facility]. [facility] Patient: Bertha Xie; 78 y.o. Visit date: 12/17/23 Reason for today's visit: Follow up for CKD stage 4 and Hypertension SUBJECTIVE: BACKGROUND: Bertha Xie is a 78 y.o. male has a past medical history of Atrial fibrillation ([facility]), Chronic kidney disease, Coronary artery disease, Deep vein thrombosis (CMS/HCC), Diabetes mellitus (CMS/HCC), Heart disease, Hyperlipidemia, Hypertension, and Preinfarction syndrome ([facility]/HCC) (04/29/2011). 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 Today 12/17/23 patient presents for a follow-up visit: Feels Ok Blood pressure & heart rate: Visit Vitals BP 135/70 (BP Location: Left arm, Patient Position: Sitting, BP Cuff Size: Large adult) Pulse 57 Resp 16 On Amlodipine 10 mg daily, Lopressor 50 mg twice daily, Amiodarone 100 mg daily, Tamsulosin 0.4 mg HS. He takes Bumex 2 mg once daily Pertinent labs/images: See Assessment & Plan -- Review of systems In addition to above: Review of Systems Constitutional: Negative for appetite change, fatigue and unexpected weight change. HENT: Negative for congestion and facial swelling. Respiratory: Negative for cough and shortness of breath. Cardiovascular: Positive for leg swelling. Negative for chest pain and palpitations. Gastrointestinal: Negative for abdominal distention, abdominal pain, constipation, diarrhea, rectal pain and vomiting. Endocrine: Negative for polydipsia and polyuria. Genitourinary: Positive for frequency. Negative for decreased urine volume, difficulty urinating, dysuria, flank pain, hematuria, scrotal swelling and urgency. Musculoskeletal: Negative for arthralgias and joint swelling. Skin: Negative for color change, rash and wound. Allergic/Immunologic: Negative for immunocompromised state. Neurological: Negative for dizziness, syncope and headaches. Psychiatric/Behavioral: Negative for sleep disturbance. The patient is not nervous/anxious. OBJECTIVE: Visit Vitals BP 135/70 (BP Location: Left arm, Patient Position: Sitting, BP Cuff Size: Large adult) Pulse 57 Resp 16 Ht 1.753 m (5' 9 ) Wt 76.2 kg (168 lb) BMI 24.81 kg/m??? Smoking Status Never BSA 1.93 m??? Physical Exam Constitutional: General: He is not in acute distress. Appearance: Normal appearance. HENT: Head: Normocephalic and atraumatic. Eyes: General: No scleral icterus. Extraocular Movements: Extraocular movements intact. Cardiovascular: Rate and Rhythm: Normal rate and regular rhythm. Heart sounds: No murmur heard. Pulmonary: Breath sounds: Normal breath sounds. No wheezing or rales. Abdominal: Tenderness: There is no abdominal tenderness. There is no right CVA tenderness or left CVA tenderness. Musculoskeletal: Right lower leg: No edema. Left lower leg: Edema (chronic) present. Skin: Coloration: Skin is not jaundiced or pale. Findings: No lesion. Neurological: General: No focal deficit present. Mental Status: He is alert and oriented to person, place, and time. Psychiatric: Mood and Affect: Mood normal. Recent Labs I have reviewed the patient's most recent labs as listed below: Chemistry: Lab Results Component Value Date NA 134 (L) 09/24/2023 K 5.0 09/24/2023 CL 99 09/24/2023 CO2 28 09/24/2023 CO2 30 02/20/2022 ANIONGAP 12 09/24/2023 BUN 52 (H) 09/24/2023 CREATININE 2.97 (H) 09/24/2023 EGFR 20.9 (L) 09/24/2023 GLU 165 (H) 02/20/2022 CALCIUM 8.9 09/24/2023 MG 2.0 09/24/2023 PHOS 3.4 09/24/2023 ALBUMIN 3.7 09/24/2023 PROT 7.0 09/24/2023 PROT 7.4 09/24/2023 AST 25 09/24/2023 ALT 39 09/24/2023 BILITOT 0.4 09/24/2023 ALKPHOS 129 (H) 09/24/2023 Hematology & Iron studies: Lab Results Component Value Date WBC 8.84 09/24/2023 HGB 14.3 09/24/2023 HCT 42.3 09/24/2023 MCV 91.4 09/24/2023 PLT 153 09/24/2023 IRON 41 (L) 11/21/2021 UIBC 230 11/21/2021 FETIBC 271 11/21/2021 IRONSAT 15 (L) 11/21/2021 FERRITIN 157 11/21/2021 Urine studies: Urine chemistry Lab Results Component Value Date PROTUR 48.5 09/24/2023 PROTUR 48.5 09/24/2023 PROTUR 48.5 09/24/2023 CREATUR 73.0 09/24/2023 MICROALBCRE (more content not included)... [facility] 12-11-2023 Note Attestation signed by Polo Pino MD at 12/12/2023 2:12 PM As the teaching physician, I have personally performed or re-performed the history of present illness, physical exam and medical decision making activities of the encounter and verified the medical student's documentation. I made pertinent changes as necessary to ensure accurate documentation. Orthopedic Surgery Subjective Pain of the Right Shoulder (New patient ) 12/11/23 Bertha Xie is a 78 y.o. male that is right hand dominant presenting for evaluation of right shoulder pain. His pain began on November [address] guided percutaneous biopsy of the right kidney. He was asked to lay down on his stomach and extend his arms in front of him which led to immediate pain in his pectoralis region with radiation toward his axilla. He describes the pain as sharp 9/10. Sleeping on his back exacerbates the pain and is associated with difficulty breathing. He has tried ibuprofen without improvement to symptoms. Review of Systems unremarkable aside from what is noted in HPI Patient History Past Surgical History: Procedure Laterality Date CHOLECYSTECTOMY CORONARY ARTERY BYPASS GRAFT CT GUIDED PERCUTANEOUS BIOPSY BONE 04/26/2021 CT GUIDED PERCUTANEOUS BIOPSY BONE SOUSA CONVERSION CT GUIDED PERCUTANEOUS BIOPSY RENAL RIGHT Right 11/26/2023 CT GUIDED PERCUTANEOUS BIOPSY RENAL RIGHT 11/26/2023 HERNIA REPAIR Past Medical History: Diagnosis Date Atrial fibrillation (CMS/HCC) Chronic kidney disease Coronary artery disease Deep vein thrombosis (CMS/HCC) Diabetes mellitus (CMS/HCC) Heart disease Hyperlipidemia Hypertension Preinfarction syndrome (CMS/HCC) 04/29/2011 Objective General: Body mass index is 24.96 kg/m???. No acute distress, comfortable Respiratory: Unlabored breathing with normal rate, no cough Cardiovascular: Warm well perfused extremities Psych: Appropriate mood behavior Right shoulder - negative piña test - negative arm drop test - negative Neer test - 10 degrees internal rotation - Full ROM external rotation - 145 degrees flexion - 120 degrees lateral abduction Right Pectoralis major - no tenderness along tendon insertion - mild pain with passive, active adduction of pectoralis major Assessment/Plan Bertha Xie is a 78 y.o. male here today for evaluation for right shoulder pain. On physical exam, there was no appreciation of rotator cuff or deltoid abnormality. There was mild pain when patient was asked to adduct his right arm across his chest with passive and active motion. Discussed with patient that he would benefit from 5 day steroid dose pack and if pain persists, he could continue with physical therapy 1 week after. - 5 day steroid dose pack - physical therapy if pain persists after steroid dose pack - Follow up AYO Walden, MS3 [facility] 12/11/23 Michael Walden 12/11/23 2:58 PM [facility] 12-10-2023 Note History of present i llness Mr. Xie, a soon-to-be 78-year-old male, was referred to our clinic by the nephrology department due to concerns regarding abnormal protein levels in his blood. His medical history is significant for triple coronary artery bypass graft in 2007, diabetes, chronic kidney disease, high blood pressure, and gallbladder surgery. He has never smoked. 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 His family medical history reveals prostate cancer in his father and brother, breast cancer in his aunt, and stomach cancer in his grandfather. He is currently on amlodipine for blood pressure management. Mr. Xie's recent lab results include a creatinine level of 2.97, indicating an estimated glomerular filtration rate (EGFR) of 20%. Serum protein electrophoresis conducted on September 23 displayed a prominent albumin peak with normal alpha 1 and alpha 2, beta, and gamma globulins fractions. Immunofixation identified IgA levels slightly elevated at 565, while IgG and IgM levels were within normal ranges at 1540 and 102, respectively. Serum immunofixation exhibited a normal pattern, and kappa and lambda light chains were 141 and 88, respectively, with a normal ratio of 1.59. Urine immunofixation did not reveal any abnormal bands. His complete blood count (CBC) showed a hemoglobin level of 14.3, platelets at 153, and white blood cells (WBC) at 8.84. His diabetes is noted with an HbA1c of 9.3. Approximately two and a half years ago, Mr. Xie underwent a bone marrow biopsy, which returned negative results. In 2020, urine protein electrophoresis detected IgG lambda, but a repeat test this year showed no abnormalities. He is also taking baby aspirin as a blood thinner. In 2020 his serum protein electrophoresis did not indicate any evidence of monoclonal protein. Diagnostic Test Results - Creatinine: 2.97 - Estimated Glomerular Filtration Rate (eGFR): 20% - Serum Protein Electrophoresis (SPEP) Date: September 23/2024 - Prominent albumin peak - Normal fraction of alpha 1 and alpha 2, beta, and gamma globulins - Immunofixation - IgA: Elevated at 565 - IgG: Normal at 1540 - IgM: Normal at 102 - Serum immunofixation: Normal pattern - Cowden light chains: 141 - Lambda light chains: 88 - Cowden/Lambda ratio: Normal at 1.59 - Urine Immunofixation - No abnormal bands - Complete Blood Count (CBC) - Hemoglobin: 14.3 - Platelets: 153 - White Blood Cells (WBC): 8.84 - HbA1c: 9.3 - Bone Marrow Biopsy in 2020: Negative - Urine Protein Electrophoresis (2020): Showed IgG lambda, but 2023 testing showed nothing abnormal. Physical exam GEN: Healthy appearing, well-developed, NAD. PSYCH: Good Judgment. AOx3. Normal memory, mood, and affect. HEENT: -Head: NC/AT; -Eyes: No discharge or redness; -Ears: External ears are normal. -Normal nares. -Normal gums, mucosa, palate CV: RRR, no murmur LUNGS: CTA, no r/c ABD: Soft, NT, NBS, no masses or organomegaly. SKIN: Warm, well perfused. No skin rashes or abnormal lesions. MSK: Normal gait. No deformities. EXT: No clubbing, cyanosis, or edema. NEURO: Ambulating with no limitations. No focal deficits Assessment and Plan 1. Abnormal protein in blood and suspicion of multiple myeloma: - The patient was referred to the oncology clinic due to abnormal proteins in the blood and suspicion of multiple myeloma. However, after reviewing the blood test results, it appears that the increase in kappa and lambda light chains is likely due to kidney dysfunction rather than a plasma cell disorder. His previous bone marrow biopsy in 2020 was negative, and recent serum and urine immunofixation showed no abnormal bands. Abnormal urine immunofixation as noted in 2020 is sometimes a false positive result due to renal disease itself. Often renal biopsy is needed to rule out MGRS (monoclonal gammopathy of renal significance). See below. 2. Chronic kidney disease (CKD): - The patient has a history of CKD with a creatinine of 2.97 and an estimated glomerular filtration rate (EGFR) of 20%. The cause of the patient's kidney dysfunction is not entirely clear, but it may be related to diabetes and high blood pressure. - Plan: He had a kidney biopsy to determine the underlying cause of the patient's kidney dysfunction. The results are not back from the [facility]. Continue monitoring kidney function and manage diabetes and hypertension to prevent further decline in kidney function. 3. Family history of cancer: - The patient has a family history of prostate cancer (father and brother), breast cancer (sister), and stomach cancer (grandfather). - Plan: Encourage the patient to maintain regular cancer screenings as appropriate for age and risk factors. Provide education on cancer risk reduction strategies, such as maintaining a healthy lifestyle (more content not included)... [facility] 11-26-2023 Note Patient has a renal biopsy that needs scheduled. I called patient to see when his procedure date is or if he had it done already. Left voicemail to call office back if he has questions. [facility] 11-26-2023 Note IR BIOPSY RENAL PERC RT Pre-procedure diagnosis: See history below Post-procedure diagnosis: Same as above Assistants/resident: See the technologist's notes above Consent/pre-procedure evaluation: See below. [place] protocol timeout verification performed. Estimated blood loss: Less than 10 mL Procedure/complications: See below Radiation dosage measurements: See below and see technologist's notes above Conscious sedation: If conscious sedation was administered, preprocedure evaluation for conscious sedation was performed and documented. History: needs biopsy of kidney for cores. Renal insufficiency and abnormal proteins and blood Procedure, after explanation of the procedure, indications, risks, benefits, and alternatives to biopsy under intravenous conscious sedation to the patient, the patient gave consent. The risks that were stressed include bleeding, infection, allergic reaction, pain, damage to adjacent organs, bleeding from the kidney requiring embolization, and cardio-pulmonary compromise due to conscious sedation. The patient received 100 micrograms of intravenous Fentanyl, one milligrams of intravenous Versed, and 30 minutes of intravenous conscious sedation by an independent, trained observer with monitoring of blood pressure, heart rate, pulse oximetry, and mental status. CT images were obtained for localization purposes. CT demonstrated strandy opacities adjacent to the inferior poles of the kidney. The inferior aspect of the right kidney with lower and was selected for biopsy. If CT was employed, automated dosage reduction techniques were utilized. All CT scans at this facility use dose modulation, iterative reconstruction, and/or weight based dosing when appropriate to reduce radiation dose to as low as reasonably achievable. The area was sterilely prepped and draped using maximal sterile barrier technique with cap, mask, gown, gloves, sterile barrier field, and chlorhexidine. 1% xylocaine was administered for local anesthesia. After placement of a 17-gauge guiding needle into the inferior pole of the kidney its position was confirmed with CT. Several cores were obtained with the 18-gauge biopsy system. Gelfoam was used to embolize the tract at the end of the procedure. There was no significant bleeding at the end of the procedure from the kidney. A small amount of bleeding was observed under the right posterior abdominal wall at the site of the needle entry... I was personally present throughout the procedure. The preliminary report from the cytopathologist in attendance indicated that an adequate amount of material had been obtained. There was no immediate complication from the procedure. All CT scans at this facility use dose modulation, iterative reconstruction, and/or weight based dosing when appropriate to reduce radiation dose to as low as reasonably achievable. Impression: CT-guided biopsy of inferior pole right kidney without significant complication. Finalized by Bardley Ontiveros MD on 11/26/2023 12:52 PM [facility] 10-15-2023 Note History of present i llness Mr. Xie, a soon-to-be 78-year-old male, was referred to our clinic by the nephrology department due to concerns regarding abnormal protein levels in his blood. His medical history is significant for triple coronary artery bypass graft in 2007, diabetes, chronic kidney disease, high blood pressure, and gallbladder surgery. He has never smoked. 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 His family medical history reveals prostate cancer in his father and brother, breast cancer in his aunt, and stomach cancer in his grandfather. He is currently on amlodipine for blood pressure management. Mr. Xie's recent lab results include a creatinine level of 2.97, indicating an estimated glomerular filtration rate (EGFR) of 20%. Serum protein electrophoresis conducted on September 23 displayed a prominent albumin peak with normal alpha 1 and alpha 2, beta, and gamma globulins fractions. Immunofixation identified IgA levels slightly elevated at 565, while IgG and IgM levels were within normal ranges at 1540 and 102, respectively. Serum immunofixation exhibited a normal pattern, and kappa and lambda light chains were 141 and 88, respectively, with a normal ratio of 1.59. Urine immunofixation did not reveal any abnormal bands. His complete blood count (CBC) showed a hemoglobin level of 14.3, platelets at 153, and white blood cells (WBC) at 8.84. His diabetes is noted with an HbA1c of 9.3. Approximately two and a half years ago, Mr. Xie underwent a bone marrow biopsy, which returned negative results. In 2020, urine protein electrophoresis detected IgG lambda, but a repeat test this year showed no abnormalities. He is also taking baby aspirin as a blood thinner. In 2020 his serum protein electrophoresis did not indicate any evidence of monoclonal protein. Diagnostic Test Results - Creatinine: 2.97 - Estimated Glomerular Filtration Rate (eGFR): 20% - Serum Protein Electrophoresis (SPEP) Date: September 23/2024 - Prominent albumin peak - Normal fraction of alpha 1 and alpha 2, beta, and gamma globulins - Immunofixation - IgA: Elevated at 565 - IgG: Normal at 1540 - IgM: Normal at 102 - Serum immunofixation: Normal pattern - Cowden light chains: 141 - Lambda light chains: 88 - Cowden/Lambda ratio: Normal at 1.59 - Urine Immunofixation - No abnormal bands - Complete Blood Count (CBC) - Hemoglobin: 14.3 - Platelets: 153 - White Blood Cells (WBC): 8.84 - HbA1c: 9.3 - Bone Marrow Biopsy in 2020: Negative - Urine Protein Electrophoresis (2020): Showed IgG lambda, but 2023 testing showed nothing abnormal. Physical exam GEN: Healthy appearing, well-developed, NAD. PSYCH: Good Judgment. AOx3. Normal memory, mood, and affect. HEENT: -Head: NC/AT; -Eyes: No discharge or redness; -Ears: External ears are normal. -Normal nares. -Normal gums, mucosa, palate CV: RRR, no murmur LUNGS: CTA, no r/c ABD: Soft, NT, NBS, no masses or organomegaly. SKIN: Warm, well perfused. No skin rashes or abnormal lesions. MSK: Normal gait. No deformities. EXT: No clubbing, cyanosis, or edema. NEURO: Ambulating with no limitations. No focal deficits Assessment and Plan 1. Abnormal protein in blood and suspicion of multiple myeloma: - The patient was referred to the oncology clinic due to abnormal proteins in the blood and suspicion of multiple myeloma. However, after reviewing the blood test results, it appears that the increase in kappa and lambda light chains is likely due to kidney dysfunction rather than a plasma cell disorder. His previous bone marrow biopsy in 2020 was negative, and recent serum and urine immunofixation showed no abnormal bands. Abnormal urine immunofixation as noted in 2020 is sometimes a false positive result due to renal disease itself. Often renal biopsy is needed to rule out MGRS (monoclonal gammopathy of renal significance). See below. 2. Chronic kidney disease (CKD): - The patient has a history of CKD with a creatinine of 2.97 and an estimated glomerular filtration rate (EGFR) of 20%. The cause of the patient's kidney dysfunction is not entirely clear, but it may be related to diabetes and high blood pressure. - Plan: Proceed with a kidney biopsy to determine the underlying cause of the patient's kidney dysfunction. The biopsy will be performed by interventional radiology. We did instruct the patient to stop taking aspirin before the biopsy. Continue monitoring kidney function and manage diabetes and hypertension to prevent further decline in kidney function. 3. Family history of cancer: - The patient has a family history of prostate cancer (father and brother), breast cancer (sister), and stomach cancer (grandfather). - Plan: Encourage the patient to maintain regular cancer screenings as appropriate for age and risk factors. Provi (more content not included)... [facility] 09-24-2023 Note Attestation signed by Herrera Bullard MD at 09/24/2023 10:48 PM I saw, interviewed, examined and evaluated the patient with Nephrology fellow Dr. Tomy Stone. I participated in the medical management of the patient. I reviewed the fellow's note and agree with the fellow's documentation in the note. Herrera Bullard MD Faculty, Division of Nephrology, Department of Medicine, [facility]. [facility] Patient: Bertha Miramontesever; 77 y.o. Visit date: 09/24/23 Reason for today's visit: Follow up for CKD stage 4 and Hypertension SUBJECTIVE: BACKGROUND: Bertha Xie is a 77 y.o. 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 Today 09/24/23 patient presents for a follow-up visit: Patient says his taste sensation for food has changed recently. No fatigue. Some BPH symptoms Recent changes to medications: Trulicity dose was increased to 3 mg once weekly. Amlodipine to 10 mg No diarrhea or constipation. No dyspnea on exertion. No fatigue. No leg edema. No changes in appetite or weight. No orthostatic symptoms. No recent illness, hospitalizations or medications changes Blood pressure & heart rate: Visit Vitals BP 133/73 (BP Location: Left arm, Patient Position: Sitting, BP Cuff Size: Adult) Pulse 57 Resp 16 On Amlodipine 10 mg daily, Lopressor 50 mg twice daily, Amiodarone 100 mg daily, Tamsulosin 0.4 mg HS. He takes Bumex 2 mg as needed (taking it almost daily except Sundays when he goes to conf[employer]ianist) Pertinent labs/images: See Assessment & Plan -- Review of systems In addition to above: Review of Systems Constitutional: Negative for appetite change, fatigue and unexpected weight change. HENT: Negative for congestion and facial swelling. Respiratory: Negative for cough and shortness of breath. Cardiovascular: Negative for chest pain, palpitations and leg swelling. Gastrointestinal: Negative for abdominal distention, abdominal pain, constipation, diarrhea, rectal pain and vomiting. Endocrine: Negative for polydipsia and polyuria. Genitourinary: Negative for decreased urine volume, difficulty urinating, dysuria, flank pain, frequency, hematuria, scrotal swelling and urgency. Musculoskeletal: Negative for arthralgias and joint swelling. Skin: Negative for color change, rash and wound. Allergic/Immunologic: Negative for immunocompromised state. Neurological: Negative for dizziness, syncope and headaches. Psychiatric/Behavioral: Negative for sleep disturbance. The patient is not nervous/anxious. OBJECTIVE: Visit Vitals BP 133/73 (BP Location: Left arm, Patient Position: Sitting, BP Cuff Size: Adult) Pulse 57 Resp 16 Ht 1.727 m (5' 8 ) Wt 71.9 kg (158 lb 9.6 oz) BMI 24.12 kg/m??? Smoking Status Never BSA 1.86 m??? Physical Exam Constitutional: General: He is not in acute distress. Appearance: Normal appearance. HENT: Head: Normocephalic and atraumatic. Eyes: General: No scleral icterus. Extraocular Movements: Extraocular movements intact. Cardiovascular: Rate and Rhythm: Normal rate and regular rhythm. Heart sounds: No murmur heard. Pulmonary: Breath sounds: Normal breath sounds. No wheezing or rales. Abdominal: Tenderness: There is no abdominal tenderness. There is no right CVA tenderness or left CVA tenderness. Musculoskeletal: Right lower leg: No edema. Left lower leg: No edema. Skin: Coloration: Skin is not jaundiced or pale. Findings: No lesion. Neurological: General: No focal deficit present. Mental Status: He is alert and oriented to person, place, and time. Psychiatric: Mood and Affect: Mood normal. Recent Labs I have reviewed the patient's most recent labs as listed below: Chemistry: Lab Results Component Value Date CO2 30 02/20/2022 BUN 44 (H) 02/20/2022 EGFR 23 (A) 02/20/2022 GLU 165 (H) 02/20/2022 CALCIUM 9.0 02/20/2022 MG 1.8 (L) 11/21/2021 PHOS 2.8 11/21/2021 ALBUMIN 3.6 02/20/2022 PROT 7.2 02/20/2022 AST 44 (H) 02/20/2022 ALT 70 (H) 02/20/2022 BILITOT 0.5 02/20/2022 ALKPHOS 122 (H) 02/20/2022 Hematology & Iron studies: Lab Results Component Value Date WBC 7.68 02/20/2022 HGB 14.2 02/20/2022 HCT 41.2 02/20/2022 MCV 88.4 02/20/2022 PLT 149 (L) 02/20/2022 IRON 41 (L) 11/21/2021 UIBC 230 11/21/2021 FETIBC 271 11/21/2021 IRONSAT 15 (L) 11/21/2021 FERRITIN 157 11/21/2021 Urine studies: Urine chemistry Lab Results Component Value Date PROTUR 107.2 11/22/19 (more content not included)... [facility] 09-17-2023 History of Present illness Narrative Type 2 Diabetes follow up Bertha Xie is a 77 y.o. male whom I am seeing in follow up for type 2 diabetes. He is on a regimen of Basaglar 15 units daily, Glipizide 10 mg twice daily and Trulicity 3 mg weekly. Trulicity was increased last visit. He went a few weeks without the Trulicity due to backorder issues. He does have a fear of needles, but was able to start the insulin. Previously on Glucophage 500 mg two tablets twice daily stopped on a previous hospital admission. Latest creatinine from September 2022 was 2.5. The patient is testing once a day and getting readings 101-257. Has not been watching his diet. Has been eating a lot sweets and junk food. Hemoglobin A1c today was 8.8%, it was 9% in June. He is not watching his diet, but is not exercising. The patient is due for his ophthalmologic exam and does not have evidence of retinopathy. He is complaining of numbness and tingling in the left upper and lower extremities as sequelae from a stroke. Mr. Xie does have macroalbuminuria. The latest urine sample from July 2023 showed microalbuminuria at 295, seeing nephrology. Creatinine in July was 2.62 with Gfr 29. Past Medical History: Diagnosis Date Back pain Diabetes mellitus ([facility]) Leg pain Current Outpatient Medications: amiodarone (PACERONE) 200 mg tablet, TAKE 1 TABLET BY MOUTH ONCE DAILY WITH MEALS, Disp: , Rfl: amLODIPine-atorvastatin (CADUET) 10-10 mg per tablet, 1 tablet, Disp: , Rfl: apixaban (ELIQUIS) 5 mg tablet, See Admin Instructions., Disp: , Rfl: aspirin 81 mg capsule, 1 tablet, Disp: , Rfl: atorvastatin (LIPITOR) 20 mg tablet, 1 tablet, Disp: , Rfl: bumetanide (BUMEX) 1 mg tablet, Take 2 tablets (2 mg total) by mouth daily., Disp: , Rfl: cholecalciferol, vitamin D3, 2,000 units capsule, daily., Disp: , Rfl: glipiZIDE (GLUCOTROL) 10 mg tablet, Take 1 tablet by mouth twice daily, Disp: 180 tablet, Rfl: 3 insulin glargine (BASAGLAR KWIKPEN U-100 INSULIN) 100 unit/mL (3 mL) insulin pen, Take 15 units at bedtime, Disp: 15 mL, Rfl: 12 magnesium oxide (MAGOX) 400 mg tablet, daily., Disp: , Rfl: meloxicam (MOBIC) 7.5 mg tablet, daily., Disp: , Rfl: metoprolol tartrate (LOPRESSOR) 25 mg tablet, Take 1 tablet (25 mg total) by mouth in the morning and 1 tablet (25 mg total) before bedtime., Disp: , Rfl: pen needle, diabetic 32 gauge x 5/32 needle, Once daily, Disp: 50 each, Rfl: 11 primidone (MYSOLINE) 50 mg tablet, 1 tablet, Disp: , Rfl: tamsulosin (FLOMAX) 0.4 mg capsule, 1 capsule 30 minutes after the same meal each day, Disp: , Rfl: TRULICITY 3 mg/0.5 mL pen injector, Inject 3 mg under the skin once a week., Disp: 6 mL, Rfl: 3 Review of Systems Constitutional: Negative. HENT: Negative. Eyes: Negative. Respiratory: Negative. Cardiovascular: Negative for chest pain, palpitations and leg swelling. Endocrine: Negative for heat intolerance, polydipsia, polyphagia and polyuria. Genitourinary: Negative. Skin: Negative. Allergic/Immunologic: Negative. Hematological: Negative. Psychiatric/Behavioral: Negative. Tobacco Use: Low Risk (09/17/2023) Patient History Smoking Tobacco Use: Never Smokeless Tobacco Use: Never Passive Exposure: Not on file History reviewed. No pertinent surgical history. No Known Allergies Family History Problem Relation Age of Onset Prostate cancer Father Cancer Paternal Aunt Stomach cancer Paternal Grandfather Physical examination Vitals: 09/17/23 1400 BP: 107/63 Pulse: 63 Weight: 71.7 kg (158 lb) Physical Exam Constitutional: Appearance: Normal appearance. HENT: Head: Normocephalic. Eyes: Extraocular Movements: Extraocular movements intact. Pupils: Pupils are equal, round, and reactive to light. Comments: No exophalmos Neck: Thyroid: No thyroid mass, thyromegaly or thyroid tenderness. Vascular: No carotid bruit. Cardiovascular: Rate and Rhythm: Normal rate and regular rhythm. Pulses: Dorsalis pedis pulses are 3+ on the right side and 3+ on the left side. Pulmonary: Effort: No respiratory distress. Breath sounds: Normal breath sounds. No wheezing. Abdominal: General: Bowel sounds are normal. Palpations: Abdomen is soft. Tenderness: There is no abdominal tenderness. Musculoskeletal: General: No swelling or tenderness. Cervical back: No rigidity or tenderness. Right lower leg: No edema. Left lower leg: No edema. Right foot: No deformity, Charcot foot or foot drop. Left foot: No deformity, Charcot foot or foot drop. Feet: Right foot: Protective Sensation: 5 sites tested. 5 sites sensed. Left foot: Protective Sensation: 5 sites tested. 5 sites sensed. Lymphadenopathy: Cervical: No cervical adenopathy. Skin: General: Skin is warm and dry. Neurological: General: No focal deficit present. Mental Status: He is alert and oriented to person, place, and time. Cranial Nerves: No cranial nerve deficit. Sensory: No sensory deficit. Motor: No weakness. Gait: Gait normal. Lab Results Component Value Date FYSKYZX5E 8.8 (A) 09/17/2023 GLU 202 (A) 09/17/2023 No results found for: TSH , T4 , T3 , CREATININE , GFR , CHOL , LDLCALC , HDL , TRIG , MICROALBUR , [id number] , VITD25 ASSESSMENT: 1. Type 2 diabetes mellitus with hyperglycemia, without long-term current use of insulin ([facility]) - POCT Glucose Fingerstick - POCT Hemoglobin A1c I discussed increasing Basaglar with patient and would like him to increase to 20 units daily. He is very resistant to this. He feels the blood sugars are out of control due to his diet and he knows what he needs to change. GORDO Will 09/17/23 1431 documented in this encounter [facility] Note Subjective Patient ID: Bertha Xie is a 77 y.o. male who presents for Hernia (Bertha is here today for a consult visit for a hernia of abdominal wall. ). HPI Patient is a 77 y/o man with hx of hx cholecystectomy, HTN, afib, DM, CKD, CAD s/p CABG, DVT hx on Eliquis(afib) here for right groin hernia consult. Patient endorses left groin open hernia repair x 2. Patient stated he has chronic lower back pain and describes radiating pain bilaterally to both groins and down inner thigh from the back. Patient noted pain worsens with movement and flexion. Denies pain worsening with prolonged standing. Pain does not improve when laying down at night. Patient denies a palpable bulge or reducible hernia. Denies hx of R inguinal hernia repair or hx of bowel obstruction. Review of Systems Constitutional: Negative. HENT: Negative. Eyes: Negative. Respiratory: Negative. Cardiovascular: Negative. Gastrointestinal: Positive for abdominal pain. Endocrine: Negative. Genitourinary: Positive for frequency. Musculoskeletal: Positive for back pain. Allergic/Immunologic: Negative. Neurological: Negative. Hematological: Bruises/bleeds easily. Psychiatric/Behavioral: Negative. Objective Visit Vitals BP 120/67 (BP Location: Left arm, Patient Position: Sitting) Pulse 58 Temp 36.4 ???C (97.6 ???F) (Oral) Physical Exam Constitutional: General: He is not in acute distress. Appearance: Normal appearance. He is not ill-appearing. HENT: Head: Normocephalic. Right Ear: External ear normal. Left Ear: External ear normal. Nose: Nose normal. Mouth/Throat: Mouth: Mucous membranes are moist. Eyes: General: No scleral icterus. Right eye: No discharge. Left eye: No discharge. Conjunctiva/sclera: Conjunctivae normal. Cardiovascular: Rate and Rhythm: Normal rate and regular rhythm. Pulses: Normal pulses. Heart sounds: Normal heart sounds. Pulmonary: Effort: Pulmonary effort is normal. No respiratory distress. Abdominal: General: There is no distension. Palpations: Abdomen is soft. Tenderness: There is no abdominal tenderness. Hernia: No hernia is present. Comments: Bilateral groin examined. He may have a very small weakening at right direct space but does not appear to correlate with his symptoms. Musculoskeletal: General: No swelling. Cervical back: Neck supple. Right lower leg: No edema. Left lower leg: No edema. Skin: General: Skin is warm. Capillary Refill: Capillary refill takes less than 2 seconds. Coloration: Skin is not jaundiced. Neurological: General: No focal deficit present. Mental Status: He is alert and oriented to person, place, and time. Psychiatric: Mood and Affect: Mood normal. Assessment/Plan Diagnoses and all orders for this visit: Bilateral groin pain Low back pain, unspecified back pain laterality, unspecified chronicity, unspecified whether sciatica present Comments: Like to refer him to our general surgery clinic for further evaluation. Orders: - Ambulatory referral to General Surgery Patient is a 77 y/o man here for hernia consultation of right groin. Imaging results reviewed and no hernia appreciated. On physical exam he does not have a hernia either on either side. I suspect his symptoms are from his lower back and recommend Ortho spine/neurosurgery evaluation. Diagnosis Plan 1. Bilateral groin pain 2. Low back pain, unspecified back pain laterality, unspecified chronicity, unspecified whether sciatica present Ambulatory referral to General Surgery Like to refer him to our general surgery clinic for further evaluation. [facility] 09-03-2023 Note Attestation signed by Tracey Cronin MD at 09/03/2023 4:30 PM By using the attestations below, the signing clinician agrees that I have read and verify that the documentation has been personally reviewed by me and ensure that the documentation accurately reflects the encounter. Office Visit Attestation GC: I personally saw this patient on the day of the encounter, performed the katz portion(s) of the service and participated in the management and confirm the resident's documentation. Please note there may be an additional personal documentation from me. Subjective Chief Complaint: Follow up hypertension HPI: Bertha Xie is a 77 y.o. male who presents for follow up of his htn and recent labs. He was last seen 08/[address] Cronin. At that time, he was referred to gen surg for hernia, he was increased to 10 norvasc daily, he was continued on his afib and diabetes regimens. 1) BP: well controlled, 130 systolic, continue lopressor 50bid & Norvasc 10mg qd 2) Right hip pain: patient deferring further workup or treatment at this time, 3) Lab work: unable to see lab work, will ask MA to obtain records. Other issues: N/A Past Medical History: Diagnosis Date Atrial fibrillation (CMS/HCC) Chronic kidney disease Coronary artery disease Deep vein thrombosis (CMS/HCC) Diabetes mellitus (CMS/HCC) Heart disease Hyperlipidemia Hypertension Preinfarction syndrome (CMS/HCC) 04/29/2011 Past Surgical History: Procedure Laterality Date CHOLECYSTECTOMY CORONARY ARTERY BYPASS GRAFT CT GUIDED PERCUTANEOUS BIOPSY BONE 04/26/2021 CT GUIDED PERCUTANEOUS BIOPSY BONE SOUSA CONVERSION HERNIA REPAIR Patient has no known allergies. Current Outpatient Medications Medication Instructions amiodarone (PACERONE) 200 mg, oral, Daily amLODIPine (NORVASC) 10 mg, oral, Daily apixaban (ELIQUIS) 2.5 mg, oral, 2 times daily RT aspirin 81 mg EC tablet Take 1 tablet every day by oral route. atorvastatin (Lipitor) 20 mg tablet Take 1 tablet by mouth once daily bumetanide (Bumex) 2 mg tablet Take 1 tablet by mouth once daily cholecalciferol, vitamin D3, 50 mcg (2,000 unit) capsule Take 1 capsule every day by oral route. glipiZIDE (Glucotrol) 10 mg tablet 1 tablet, oral, 2 times daily RT Lantus Solostar U-100 Insulin 100 unit/mL (3 mL) pen INJECT 15 UNITS SUBCUTANEOUSLY AT BEDTIME metoprolol tartrate (LOPRESSOR) 50 mg, oral, 2 times daily RT pen needle, diabetic 32 gauge x needle USE 1 ONCE DAILY primidone (MYSOLINE) 50 mg, oral, Nightly tamsulosin (FLOMAX) 0.4 mg, oral, Daily Trulicity 3 mg, 1 time a week. On Friday. Review of Systems Review of Systems Constitutional: Negative for appetite change, diaphoresis, fatigue and fever. HENT: Negative for sore throat. Eyes: Negative for visual disturbance. Respiratory: Negative for cough, chest tightness and shortness of breath. Cardiovascular: Negative for chest pain, palpitations and leg swelling. Gastrointestinal: Negative for abdominal pain, constipation, diarrhea, nausea and vomiting. Genitourinary: Negative for dysuria and hematuria. Skin: Negative for color change, pallor and rash. Neurological: Negative for dizziness, numbness and headaches. Psychiatric/Behavioral: Negative for agitation and behavioral problems. All other systems reviewed and are negative. Objective Lab Results Component Value Date/Time WBC 7.68 02/20/2022 1527 WBC 9.44 06/20/2021 1517 WBC 9.64 04/23/2021 0715 HGB 14.2 02/20/2022 1527 HGB 12.1 (L) 11/21/2021 1551 HGB 11.6 (L) 06/20/2021 1517 PLT 149 (L) 02/20/2022 1527 PLT 182 06/20/2021 1517 PLT 150 04/23/2021 0715 BUN 44 (H) 02/20/2022 1527 BUN 44 (H) 11/21/2021 1551 BUN 38 (H) 06/20/2021 1517 MG 1.8 (L) 11/21/2021 1551 MG 1.9 06/20/2021 1517 MG 2.0 03/28/2021 1458 AST 44 (H) 02/20/2022 1527 AST CANCELED 04/23/2021 0715 AST 10 (L) 01/05/2021 0515 ALT 70 (H) 02/20/2022 1527 ALT CANCELED 04/23/2021 0715 ALT 10 01/05/2021 0515 CHOL 70 (L) 01/04/2021 0542 CHOL 75 (L) 04/13/2020 1310 HDL 31 01/04/2021 0542 HDL 28 04/13/2020 1310 LDL 28 01/04/2021 0542 LDL 39 01/04/2021 0542 LDL 19 04/13/2020 1310 LDL 47 04/13/2020 1310 MICROALBCREA 1,170.5 (H) 04/13/2020 1310 Lab Results Component Value Date WBC 7.68 02/20/2022 HGB 14.2 02/20/2022 HCT 41.2 02/20/2022 MCV 88.4 02/20/2022 PLT 149 (L) 02/20/2022 Lab Results Component Value Date CALCIUM 9.0 02/20/2022 CO2 30 02/20/2022 BUN 44 (H) 02/20/2022 Lab Results Component Value Date ALT 70 (H) 02/20/2022 AST 44 (H) 02/20/2022 ALKPHOS 122 (H) 02/20/2022 BILITOT 0.5 02/20/2022 No results found for: HGBA1C Lab Results Component Value Date CHOL 70 (L) 01/04/2021 CHOL 75 (L) 04/13/2020 Lab Results Component Value Date HDL 31 (more content not included)... [facility] 08-12-2023 Note Subjective Patient ID: Bertha Xie is a 77 y.o. male who presents for Follow-up (HTN Follow up , Abdominal pain x's 2 yrs. ). Bertha is a very pleasant 77-year-old male who comes in today for follow-up visit. 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 I could not find labs. He had some labs done for endocrinology in July. He got some from [place] but I could only see a few [...] about 4 weeks (more content not included)... [facility] Evaluation note Diagnosis Type 2 diabetes mellitus with hyperglycemia, without long-term current use of insulin ([facility] Primary documented in this encounter [facility] SystemInstructionsNot on filedocumented in this encounter [facility] [facility] SystemInstructionsNot on filedocumented in this encounter [facility] [facility] SystemInstructionsNot on filedocumented in this encounter [facility] Advance Directives No Advanced Directives Records FoundDocuments on File Type Date Recorded Patient Music Assistant Expl anation Advance Directives and Living Will Power of Bedspread Folder Documents on File Type Date Recorded Patient Music Assistant Expl anation ACP-Advance Directive ACP-Power of Bedspread Folder Latest Code Status on File Code Status Date Activated Date Inactivated Comments Full Code 08/27/2022 7:28 PM 08/31/2022 8:28 PM Healthcare Agents on File Name Relationship Healthcare Agent Relationshi p Communication Izabela Xie Spouse Primary Decision Maker Summary Purpose Family [...] section and content) DATE CREATED AUTHOR 08/24/[address] [facility] DATE CREATED AUTHOR AUTHOR'S ORGANIZ ATION 03/08/2022 [facility] DATE CREATED AUTHOR AUTHOR'S ORGANIZ ATION 07/30/2022 [facility] DATE CREATED AUTHOR AUTHOR'S ORGANIZ ATION 09/24/2022 [facility] DATE CREATED AUTHOR AUTHOR'S ORGANIZ ATION 12/19/2023 [facility] DATE CREATED AUTHOR AUTHOR'S ORGANIZ ATION 04/05/2024 [facility] DATE CREATED AUTHOR AUTHOR'S ORGANIZ ATION 07/16/2024 [facility] Care Teams (unrecognized sec tion and content) Library Supervisor Relationship Specialty Start Date End Date Tracey Cronin DO [address] [place] [id number] PCP - General Internal Medicine 11/28/17 Library Supervisor Relationship Specialty Start Date End Date Tracey Cronin DO [address] [facility] [address] [facility] [place] [id number] PCP - General Internal Medicine 11/26/23 Reason for Visit (unrecogniz ed section and content) Reason Comments Diabetes Mellitus Reason Comments Med Refill FOR RECORDS PERTAINING TO PATIENTS WHO ARE [...] BE BASED ON THE PRIMARY CLINICAL RECORDS. [employer] [facility]. provides no warranty or guarantee of the accuracy or completeness of information in this document.
[2024-07-16 13:21] LABS: Alanine Aminotransferase 35 U/L (16-63); Albumin Globulin Ratio 0.7; Alkaline Phosphatase 152 U/L (46-116); Aspartate Amino Transferase 25 U/L (15-37); Bilirubin Direct 0.1 mg/dL (0.0-0.2); Bilirubin Total 0.4 mg/dL (0.2-1.0); Globulin 4.4 g/dL; TSH W/ REFLEX FT4 0.952 uIU/mL (0.358-3.740); Total Protein 7.4 g/dL (6.4-8.2)
== END 2024-07-16 11:57 | disposition home or self-care (01) ==
LOC: LAB 11:58
PROVIDERS: Visit Provider Internal Medicine Interventional Cardiology
DX: Z79.899 Other long term (current) drug therapy (principal)
CPT/HCPCS: 36415; 80076; 84443

== ENCOUNTER 2024-07-22 12:46 | Outpatient (OUT) | payer MEDICARE, OTHER, SELFPAY ==
--- NOTE | 2024-07-22 13:00 | CA_ITS ---
Patient Name: BERTHA PULIDO MR#: [id number] : 1945 Exam Date: 07/22/2024 Ordering Doctor: DR MARIE ORTIZ M.D. ECHOCARDIOGRAM REPORT PROCEDURE: CA ECHO DOPPLER COMPLETE INDICATIONS: CAD, atrial fibrillation, CABGx3, hypertension COMPARISON: None. DESCRIPTION: COMPLETE ECHOCARDIOGRAM Real-time transthoracic echocardiography with 2D, M-mode, spectral and color flow Doppler performed. QUALITY: Technical quality was good. LEFT VENTRICLE: Normal chamber size. Thickened septal wall. LV EF: Global left ventricular systolic function is normal; visually estimated ejection fraction is 55%. No significant wall motion abnormalities DIASTOLIC: Diastolic function is indeterminate. ATRIAL SEPTUM: Inadequately seen. LEFT ATRIUM: Mild dilatation. RIGHT ATRIUM: Normal chamber size. RIGHT VENTRICLE: Normal chamber size. TRICUSPID VALVE: Normal mobility and thickness. No stenosis with trivial regurgitation. No evidence of pulmonary hypertension. RVSP 21 mmHg MITRAL VALVE: Normal mobility and thickness. No evidence of mitral valve stenosis. There is no mitral annular calcification. Trivial mitral regurgitation. AORTIC VALVE: Normal trileaflet appearance. Mildly calcified aortic valve. Normal leaflet mobility. No evidence of aortic valve stenosis. No aortic regurgitation. AORTIC ROOT: Normal diameter and appearance. PULMONIC VALVE: Normal thickness and mobility. No stenosis. No regurgitation. PERICARDIUM: Anterior free space; trivial effusion versus fat pad. IVC: Not well visualized. CONCLUSION: 1. Global left ventricular systolic function is normal; visually estimated ejection fraction is 55% 2. Normal right ventricular size and systolic function 3. The left atrium is mildly dilated 4. Diastolic function is indeterminate 5. No significant valvular abnormalities 6. Anterior free space; trivial effusion versus fat pad Adult Echocardiography Procedure Report Left Ventricle LVEDD (3.7 - 5.6 cm): 4.50 cm LVESD (2.2 - 4.0 cm): 3.47 cm LVIVS thickness (0.6 - 1.2 cm): 1.25 cm LVPW thickness (0.5 - 1.0 cm): 0.95 cm e': 0.06 m/s E - e': 13.18 LVOT Max Gradient: 1.21 mm[Hg] LVOT Area (cm2): 0.55 m/s Peak Velocity (LVOT): 0.55 m/s Mean Velocity (LVOT): 0.38 m/s LVOT Diameter 2.48 cm Left Atrium LA Volume Index (2D A2C): 42.22 ml/m2 Left Atrium Systolic Dimension: 4.60 cm Mitral Valve MV E to A Ratio: 1.19 Mitral Valve A-Wave Peak Velocity: 0.62 m/s Mitral Valve E-Wave Peak Velocity: 0.74 m/s Right Ventricle Aorta AO Root Diam: 3.43 cm Aortic Valve AoV Area (Peak Cleve): 3.80 cm2, 3.80 cm2 AoV Area (VTI): 3.83 cm2, 3.83 cm2 Peak Velocity(Antegrade Flow): 0.70 m/s Peak Gradient(Antegrade Flow): 1.97 mm[Hg] Mean Velocity(Antegrade Flow): 0.44 m/s Mean Gradient(Antegrade Flow): 0.94 mm[Hg] Velocity Time Integral: 17.83 cm Tricuspid Valve Peak Velocity (Regurgitant Flow): 2.13 m/s Pulmonic Valve Mean Gradient: 0.98 mm[Hg] Mean Velocity: 0.47 m/s Peak Velocity: 0.67 m/s, 0.73 m/s Peak Gradient: 2.13 mm[Hg], 1.77 mm[Hg] Right Atrium Right Atrium Systolic Pressure: 52.58 ml, 52.58 ml Dictated by: Chica Mueller M.D. on 07/26/2024 at 14:16 Approved by: Chica Mueller M.D. on 07/26/2024 at 14:21
[2024-07-22 13:02] LABS: Hemoglobin 14.1 g/dL (14.0-18.0)
== END 2024-07-22 12:47 | disposition home or self-care (01) ==
LOC: CARD 12:46
PROVIDERS: Visit Provider Internal Medicine Interventional Cardiology
DX: Z79.899 Other long term (current) drug therapy (principal); I25.10 Atherosclerotic heart disease of native coronary artery without angina pectoris; Z95.1 Presence of aortocoronary bypass graft; I48.0 Paroxysmal atrial fibrillation
CPT/HCPCS: 36415; 85018; 93306; 94010; 94726; 94729

== ENCOUNTER 2025-01-24 14:38 | Outpatient (OUT) | payer MEDICARE, OTHER, SELFPAY ==
--- OUTSIDE RECORDS SUMMARY | 2025-01-24 14:45 | XMS_ITS | Encounter Summary ---
Author Organization [employer] Address [id number] [address] [place] [address] Care Team Providers Care Claims Sorter Name Role Phone Masoud Cronin DO Primary Care Provider [phone] Encounter Details Date Type Department Care Team (Late st Contact Info) Description 10/10/2022 [facility] [address] [facility] [address] [place] [address] Debbie Fish APRN-CNP [address] [facility] [address] [place] [address] Social History Tobacco Use Types Packs/Day Years Used Date Smoking Tobacco: Never Assessed Childcare Answer Date Recorded Childcare Unknown 12/23/2018 Employment Answer Date Recorded Employment Unknown 12/23/2018 Sex and Gender Information Value Date Recorded Sex Assigned at Not on file Legal Sex Male 11:28 AM EDT Gender Identity Not on file Sexual Orientation Not on file documented as of this encounter Miscellaneous Notes * Telephone Encounter - wEa Mckeon - 10/10/2022 3:16 PM EDT Is the pt aware of the appt? * Telephone Encounter - GORDO Will - 10/10/2022 3:16 PM EDT Yes, I spoke to him yesterday. Thank you documented in this encounter Plan of Treatment Upcoming Encounters Date Type Department Care Team (Late st Contact Info) Description 01/25/2025 10:15 AM EDT Office Visit [facility] Department of [facility] [address] [place] [phone] Chris Guevara MD [address] [place] [address] documented as of this encounter Visit Diagnoses Not on filedocumented in this encounter Care Teams Claims Sorter Relationship Specialty Start Date End Date Masoud Cronin DO [address] [facility] [place] [phone] PCP - General Internal Medicine 11/26/23 documented as of this encounter
--- OUTSIDE RECORDS SUMMARY | 2025-01-24 14:45 | XMS_ITS | Encounter Summary ---
Author Organization [employer] tem Address [id number] [address] [place] [address] Care Team Providers Care Beveller Operator Name Role Phone JulianMasoud berrios Primary Care Provider [phone] Reason for Visit * Reason Comments Med Refill Encounter Details Date Type Department Care Team (Late st Contact Info) Description 05/02/2024 Refill [facility] [address] [place] [address] Chris Guevara MD [address] [place] [address] Type 2 diabetes mellitus with hyperglycemia, without long-term current use of insulin ([facility]) (Primary Dx) Social History Tobacco Use Types Packs/Day Years Used Date Smoking Tobacco: Never Smokeless Tobacco: Never Alcohol Use Standard Drinks/Week Comments Never 0 (1 standard drink = 0.6 oz pur e alcohol) Childcare Answer Date Recorded Childcare Unknown 12/23/2018 Employment Answer Date Recorded Employment Unknown 12/23/2018 Hunger Screening Answer Date Recorded Within the past 12 months we worried whether our food would run out before we got money to buy more. Never True 12/22/2023 Within the past 12 months th e food we bought just didn't last and we didn't have money to get more. Never True 12/22/2023 Sex and Gender Information Value Date Recorded Sex Assigned at Not on file Legal Sex Male 11:28 AM EDT Gender Identity Not on file Sexual Orientation Not on file documented as of this encounter Miscellaneous Notes * Telephone Encounter - Rabia Ruiz - 05/02/2024 11:53 AM EDT Please refuse the Novofine script for request already responded. I am no longer able to refuse scripts. Ok to sign and send for Relion needle script. Thank you! documented in this encounter Plan of Treatment Upcoming Encounters Date Type Department Care Team (Late st Contact Info) Description 01/25/2025 10:15 AM EDT Office Visit [facility] Adult Endocrinology, A Department of [facility] [address] [place] [address] Chris Guevara MD [address] [place] [address] documented as of this encounter Visit Diagnoses Diagnosis Type 2 diabetes mellitus with hyperglycemia, without long-term current use of insulin ([facility])- Primary documented in this encounter Care Teams Beveller Operator Relationship Specialty Start Date End Date Masoud Cronin DO [address] [facility] [place] [address] PCP - General Internal Medicine 11/26/23 documented as of this encounter
--- OUTSIDE RECORDS SUMMARY | 2025-01-24 14:45 | XMS_ITS | Encounter Summary ---
Author Organization [facility] [facility] tem Address [id number] [address] [place] [address] Care Team Providers Care Pot Fluxer Name Role Phone Masoud Cronin DO Primary Care Provider [phone] Encounter Details Date Type Department Care Team ([facility] Contact Info) Description 08/06/2023 Orders Only [facility] [address] [facility] [address] [place] [address] Gwen Weldon CMA Type 2 diabetes mellitus with hyperglycemia, without long-term current use of insulin ([facility]) Social History Tobacco Use Types Packs/Day Years [...] got money to buy more. Never True 06/18/2023 Within the past 12 months th e food we bought just didn't last and we didn't have money to get more. Never True 06/18/2023 Sex and Gender Information Value Date Recorded Sex Assigned at Not on file Legal Sex Male 11:28 AM EDT Gender Identity Not on file Sexual Orientation Not on file documented as of this encounter Plan of Treatment Upcoming Encounters Date Type Department Care Team ([facility] Contact Info) Description 01/25/2025 10:15 AM EDT Office Visit [facility], A Department of [facility] [address] [facility] [address] [place] [phone] Chris Guevara MD [address] [place] [address] documented as of this encounter Procedures Procedure Name Priority Date/Time Associated Diagnosis Comments THYROID PROFILE INCLUDES TSH FT4 Routine 08/05/2023 Type 2 diabetes mellitus with hyperglycemia, without long-term current use of insulin ([facility]) CBC WITH AUTO DIFFERENTIAL Routine 08/05/2023 Type 2 diabetes mellitus with hyperglycemia, without long-term current use of insulin ([facility]) MICROALBUMIN / CREATININE URINE RATIO Routine 08/05/2023 Type 2 diabetes mellitus with hyperglycemia, without long-term current use of insulin ([facility]) LIPID PROFILE Routine 08/05/2023 Type 2 diabetes mellitus with hyperglycemia, without long-term current use of insulin ([facility]) COMPREHENSIVE METABOLIC PANEL Routine 08/05/2023 Type 2 diabetes mellitus with hyperglycemia, without long-term current use of insulin ([facility]) documented in this encounter Results * Comprehensive metabolic panel (08/05/2023) 08/05/2023 Debbie Fish SPORTS TEACHER-TIRE SERVICER LAB BLOOD ORDERABLES Fin al Result [facility] * Lipid profile (08/05/2023) External Cholesterol 111 <=150 [facility] External Cholesterol:Hdl 2.3 [facility] External Hdl Cholesterol 49 40 - 60 [facility] External Ldl (Calc) 45 [facility] External Triglycerides 85 <=150 [facility] 08/05/2023 Debbie Fish SPORTS TEACHER-TIRE SERVICER LAB BLOOD ORDERABLES Fin al Result Performing Organization Address [facility] de Phone Number [facility] * Thyroid profile includes TSH FT4 (08/05/2023) 08/05/2023 us Debbie Fish SPORTS TEACHER-TIRE SERVICER LAB BLOOD ORDERABLES Fin al Result Performing Organization Address [facility] de Phone Number [facility] * CBC auto differential (08/05/2023) 08/05/2023 Debbie Fish SPORTS TEACHER-TIRE SERVICER LAB BLOOD ORDERABLES Fin al Result Performing Organization Address [facility] de Phone Number [facility] * (ABNORMAL) Microalbumin - Albumin: Creatinine Urine Ratio (08/05/2023) External Microalbumin, Urine 21.3 <=30.0 [facility] External Urine Creat 72.02 20 - 300 [facility] External Alb/Creat Ratio 295.7(A) 0.0 - 29.9 [facility] 08/05/2023 Debbie Fish SPORTS TEACHER-TIRE SERVICER URINE ORDERABLES Final R esult Performing Organization Address [facility] de Phone Number [facility] documented in this encounter Visit Diagnoses Diagnosis Type 2 diabetes mellitus with hyperglycemia, without long-term current use of insulin ([facility]) documented in this encounter Care Teams Pot Fluxer Relationship Specialty Start Date End Date Masoud Cronin DO [address] [place] [phone] PCP - General Internal Medicine 11/26/23 documented as of this encounter
--- OUTSIDE RECORDS SUMMARY | 2025-01-24 14:45 | XMS_ITS | Encounter Summary ---
Author Organization [facility] tem Address [id number] [address] [place] [address] Care Team Providers Care Relay Checker Name Role Phone JulianMasoud berrios Primary Care Provider [phone] Encounter Details Date Type Department Care Team (Late st Contact Info) Description 01/20/2025 Telephone [facility] Adult Endocrinology, A Department of [facility] [address] [place] [address] Chris Guevara MD [address] [place] [address] Social History Tobacco Use Types Packs/Day Years [...] got money to buy more. Never True 10/20/2024 Within the past 12 months th e food we bought just didn't last and we didn't have money to get more. Never True 10/20/2024 Sex and Gender Information Value Date Recorded Sex Assigned at Not on file Legal Sex Male 11:28 AM EDT Gender Identity Not on file Sexual Orientation Not on file documented as of this encounter Miscellaneous Notes * Telephone Encounter - Rachel Astudillo - 01/20/2025 4:36 PM EDT error documented in this encounter Plan of Treatment Upcoming Encounters Date Type Department Care Team (Late st Contact Info) Description 01/25/2025 10:15 AM EDT Office Visit [facility], A Department of [facility] [address] [place] [address] Chris Guevara MD [address] [place] [address] documented as of this encounter Visit Diagnoses Not on filedocumented in this encounter Care Teams Relay Checker Relationship Specialty Start Date End Date Masoud Cronin DO [address] [facility] [place] [phone] PCP - General Internal Medicine 11/26/23 documented as of this encounter
--- OUTSIDE RECORDS SUMMARY | 2025-01-24 14:45 | XMS_ITS | Clinical Summary ---
Author Organization [employer] tem Address [id number] [address] [place] [address] Care Team Providers Care Certified Nurse Aide Name Role Phone JulianMasoud berrios DO Primary Care Provider [phone] Allergies No known active allergies Medications atorvastatin (LIPITOR) 20 mg tablet 1 tablet Active tamsulosin (FLOMAX) 0.4 mg capsule 1 capsule 30 minutes after the same meal each day Active apixaban (ELIQUIS) 5 mg tablet See Admin Instructions. Active amLODIPine-at orvastatin (CADUET) 10-10 mg per tablet 1 tablet Active aspirin 81 mg capsule 1 tablet Active primidone (MYSOLINE) 50 mg tablet 1 tablet Active amiodarone (PACERONE) 200 mg tablet TAKE 1 TABLET BY MOUTH ONCE DAILY WITH MEALS 07/12/20 22 Active bumetanide (BUMEX) 1 mg tablet Take 2 tablets (2 mg total) by mouth daily. Active cholecalcifer ol, vitamin D3, 2,000 units capsule daily. Active meloxicam (MOBIC) 7.5 mg tablet daily. Active pen needle, diabetic 32 gauge x 5/32 needle Once daily 50 each 11 04/16/20 23 Active metoprolol tartrate (LOPRESSOR) 25 mg tablet Take 1 tablet (25 mg total) by mouth in the morning and 1 tablet (25 mg total) before bedtime. Active LANTUS SOLOSTAR U-100 INSULIN 100 unit/mL (3 mL) insulin pen INJECT 15 UNITS SUBCUTANEOUSLY AT BEDTIME 15 mL 3 04/20/20 24 Active amLODIPine (NORVASC) 10 mg tablet Take 1 tablet (10 mg total) by mouth. Active lisinopriL (PRINIVIL,ZES TRIL) 20 mg tablet Active glipiZIDE (GLUCOTROL) 10 mg tablet Take 1 tablet (10 mg total) by mouth in the morning and 1 tablet (10 mg total) in the evening. Take before meals. 180 tablet 10/21/19 Active dulaglutide (TRULICITY) 3 mg/0.5 mL pen injectorIndic ations:Type 2 diabetes mellitus with hyperglycemia , without long-term current use of insulin ([facility]) INJECT 3 MG WEEKLY 6 mL 01/21/20 25 Active TRULICITY 3 mg/0.5 mL pen injectorIndic ations:Type 2 diabetes mellitus with hyperglycemia , without long-term current use of insulin ([facility]) INJECT 1 SYRINGE SUBCUTANEOUSLY ONCE A WEEK 6 mL 09/30/192024 Discontinued Active Problems Problem Noted Date Diagnosed Date Type 2 diabetes mellitus wit h diabetic nephropathy, without long-term current use of insulin 12/23/2023 Assessment & Plan (10/20/2024 6:03 PM EDT): Ralph Xie is a 79 y.o. male with type 2 diabetes uncontrolled based on hemoglobin A1c and blood sugars. Target A1c is below 8% so patient was just advised to watch his diet more carefully and try to be as physically active as possible. No medication changes today. Patient will continue following with Ophthalmology regularly. We will obtain thyroid function studies and B12 levels prior to his next appointment in 3 months Assessment & Plan (12/23/2023 10:55 AM EDT): Ralph Xie is a 78 y.o. male with type 2 diabetes better controlled based on hemoglobin A1c and blood sugars. No medication changes today. Patient was just advised to watch his diet more carefully and try to be as physically active as possible. Patient will continue following with Ophthalmology regularly and will come back for follow-up in 3 months. . Mixed hyperlipidemia 04/16/2023 Assessment & Plan (10/20/2024 6:04 PM EDT): Lipid profile from July 2023, at target. We will obtain A fasting lipid profile prior to his next appointment Assessment & Plan (12/23/2023 10:55 AM EDT): Lipid profile from July 2023, at target Assessment & Plan (04/16/2023 3:13 PM EDT): Lipid profile from July 2022, at target Type 2 diabetes mellitus wit h hyperglycemia, without long-term current use of insulin 01/21/2023 Assessment & Plan (04/16/2023 3:14 PM EDT): Ralph Xie is a 77 y.o. male with type 2 diabetes uncontrolled based on hemoglobin A1c and blood sugars. We will start Basaglar 15 units at bedtime. Patient was just advised to watch his diet more carefully and exercise on a regular basis. Patient will continue following with Ophthalmology regularly and will come back for follow-up in 2 months. Encounters Date Type Department Care Team Description 01/20/[address] [facility] Adult Endocrinology, A Department of [facility] [address] [phone] Chris Guevara MD 01/20/[address] [facility] [address] [phone] Debbie Fish, INVESTIGATOR FRAUD-DIE TROUBLE SHOOTER Type 2 diabetes mellitus with hyperglycemia, without long-term current use of insulin ([facility]) from Last 3 Months Family History Medical History Relation Name Comments Prostate cancer Father Cancer Paternal Aunt Stomach cancer Paternal Grandfather Relation Name Status Comments Father Paternal Aunt Paternal Grandfather Social History Tobacco Use Types Packs/Day Years Used Date Smoking Tobacco: Never Smokeless Tobacco: Never Tobacco Cessation:Counseling Given: Not Answered Alcohol Use Standard Drinks/Week Comments Never 0 [...] on file Sexual Orientation Not on file Last Filed Vital Signs Vital Sign Reading Time Taken Comments Blood Pressure 166/69 10/20/2024 2:44 PM EDT Pulse 56 10/20/2024 2:44 PM EDT Temperature 36.4 C (97.5 F) 11/26/2023 10:18 AM EDT Respiratory Rate 18 11/26/2023 2:00 PM EDT Oxygen Saturation 98% 11/26/2023 2:00 PM EDT Inhaled Oxygen Concentration - - Weight 80 kg (176 lb 4.8 oz) 10/20/2024 2:44 PM EDT Height 165.1 cm (5' 5 ) 11/26/2023 10:18 AM EDT Body Mass Index 29.34 11/26/2023 10:18 AM EDT Plan of Treatment Upcoming Encounters Date Type Department Care Team (Late st Contact Info) Description 01/25/2025 10:15 AM EDT Office Visit [facility], A Department of [facility] [address] [place] [address] Chris Guevara MD [address] [place] [address] Health Maintenance Due Date Last Done Comments Depression Screening 1956 DTaP,Tdap and Td Vaccines (1 - Tdap) 10/18/1963 Zoster (Shingles) Vaccine (1 of 2) 1994 Fall Risk Screening 2009 COVID-19 Vaccine ( season) 03/14/202409/2021, 06/22/2021 Influenza Vaccine 03/14/2025 08/12/2019, 06/07/2019 Tobacco Screening 10/20/2025 10/20/2024 Medical Devices Not on file Insurance [employer] Care Teams Certified Nurse Aide Relationship Specialty Start Date End Date Masoud Cronin DO [address] [facility] [address] [facility] [place] [address] PCP - General Internal Medicine 11/26/23
--- OUTSIDE RECORDS SUMMARY | 2025-01-24 14:45 | XMS_ITS | Encounter Summary ---
Author Organization [employer] Address [id number] [address] [place] [address] Care Team Providers Care Insert Operator Name Role Phone Julianyash Masoud Trinity FERRARI Primary Care Provider [phone] Reason for Visit * Reason Comments Med Refill Encounter Details Date Type Department Care Team (Late st Contact Info) Description 01/20/2025 Refill [facility] [address] [facility] 100 [place] [address] Debbie Fish, RADIATION SAFETY OFFICER-PUMPER HEAD [address] [facility] [address] [place] [address] Type 2 diabetes mellitus with hyperglycemia, without long-term current use of insulin ([facility]) Social History Tobacco Use Types Packs/Day Years [...] Telephone Encounter - Rachel Astudillo - 01/20/2025 4:27 PM EDT PATIENT REQUESTING SCRIPT. CAN YOU PLEASE SIGN documented in this encounter Plan of Treatment Upcoming Encounters Date Type Department Care Team (Late st Contact Info) Description 01/25/2025 10:15 AM EDT Office Visit [facility] Adult Endocrinology, A Department of [facility] [address] [place] [address] Chris Guevara MD [address] [place] [address] documented as of this encounter Visit Diagnoses Diagnosis Type 2 diabetes mellitus with hyperglycemia, without long-term current use of insulin ([facility]) documented in this encounter Care Teams Insert Operator Relationship Specialty Start Date End Date Masoud Cronin DO [address] [facility] [place] [address] PCP - General Internal Medicine 11/26/23 documented as of this encounter
--- OUTSIDE RECORDS SUMMARY | 2025-01-24 14:45 | XMS_ITS | Encounter Summary ---
Author Organization [facility] [employer] [facility] tem Address [facility] [id number] [address] [place] [address] Care Team Providers Care Sole Stitcher Hand Name Role Phone Masoud Cronin DO Primary Care Provider [phone] Encounter Details Date Type Department Care Team (Late Contact Info) Description 01/24/2021 Documentation [facility] Medical Physician Sign In [address] [place] [phone] Shruthi Arredondo MD [address] [place] [address] Social History Tobacco Use Types Packs/Day Years [...] Encounters Date Type Department Care Team (Late Contact Info) Description 01/25/2025 10:15 AM EDT Office Visit [facility] Adult Endocrinology, A Department of [facility] [address] [place] [address] Chris Guevara MD [address] [facility] [address] [place] [address] documented as of this encounter Visit Diagnoses Not on filedocumented in this encounter Care Teams Sole Stitcher Hand Relationship Specialty Start Date End Date Masoud Cronin DO [address] [facility] 2 [facility] [place] [address] PCP - General Internal Medicine 11/26/23 documented as of this encounter
--- OUTSIDE RECORDS SUMMARY | 2025-01-24 14:45 | XMS_ITS | Encounter Summary ---
Author Organization [facility] [employer] [facility] tem Address [id number] [address] [place] [address] Care Team Providers Care Longwall Shearer Operator Name Role Phone Masoud Cronin DO Primary Care Provider [phone] Reason for Visit * Reason Comments Med Refill Encounter Details Date Type Department Care Team (Late st Contact Info) Description 10/02/2022 Refill [facility] [address] [facility] [address] [place] [phone] Debbie Fish, TELECOMMUNICATIONS FACILITY EXAMINER-SCIENTIFIC TECHNICAL WRITER [address] [facility] [address] [place] [address] Social History Tobacco Use Types Packs/Day Years [...] Visit [facility], A Department of [facility] [address] [facility] [address] [place] [phone] Chris Guevara MD [address] [facility] [address] [place] [address] documented as of this encounter Visit Diagnoses Not on filedocumented in this encounter Care Teams Longwall Shearer Operator Relationship Specialty Start Date End Date Masoud Cronin DO [address] [facility] 2 [facility] [place] [address] PCP - General Internal Medicine 11/26/23 documented as of this encounter
--- OUTSIDE RECORDS SUMMARY | 2025-01-24 14:46 | XMS_ITS | Encounter Summary ---
Author Organization [facility] tem Address [id number] [address] [place] [address] Care Team Providers Care Computer Forensics Investigator Name Role Phone Masoud Cronin DO Primary Care Provider [phone] Reason for Referral * Diagnostic Imaging (Routine) - Closed Specialty Diagnoses / Procedures Referred By Krystyna acevedo Referred To Contact Radiology Diagnoses Kidney dysfunction Procedures IR percutaneous biopsy renal right Lucy Huertas MD [address] [place] [address] Phone: tel: fax: Referral ID Status Reason Start Date Expiration Date Visits Re quested Visits Authorized [id number] Closed 11/03/2023 11/02/2024 1 1 Encounter Details Date Type Department Care Team (Late st Contact Info) Description 11/03/2023 Orders Only [facility] - Interventional Radiology [address] [place] [id number] Lucy Huertas MD [address] [place], [place] [id number] Kidney dysfunction (Primary Dx) Social History Tobacco Use Types [...] got money to buy more. Never True 09/17/2023 Within the past 12 months th e food we bought just didn't last and we didn't have money to get more. Never True 09/17/2023 Sex and Gender Information Value Date Recorded Sex Assigned at Not on file Legal Sex Male 11:28 AM EDT Gender Identity Not on file Sexual Orientation Not on file documented as of this encounter Plan of Treatment Upcoming Encounters Date Type Department Care Team (Late st Contact Info) Description 01/25/2025 10:15 AM EDT Office Visit [facility] Adult Endocrinology, A Department of [facility] [address] [place] [address] Chris Guevara MD [address] [place] [address] documented as of this encounter Results * IR percutaneous biopsy renal right (11/26/2023 12:39 PM EDT) Anatomical Region Laterality Modality Body Right X-Ray Angiograph y 11/26/2023 12:4 9 PM EDT Narrative 11/26/2023 12:52 PM EDT Pre-procedure diagnosis: See history below Post-procedure diagnosis: Same as above Assistants/resident: See the technologist's notes above Consent/pre-procedure evaluation: See below. [place] protocol timeout verification performed. Estimated blood loss: [...] right kidney without significant complication. Finalized by Bradley Ontiveros MD on 11/26/2023 12:52 PM Procedure Note Michael Ontiveros MD - 11/26/2023 Pre-procedure diagnosis: See history below Post-procedure diagnosis: Same as above Assistants/resident: See the technologist's notes above Consent/pre-procedure evaluation: See below. [place] protocol timeoutverification performed. Estimated blood loss: Less than 10 mL Procedure/complications: See below Radiation dosage measurements: See below and see technologist's notesabove Conscious sedation: If conscious sedation was administered, preprocedureevaluation for conscious sedation was performed and documented. History: needs biopsy of kidney for cores. Renal insufficiency andabnormal proteins and blood Procedure, after explanation of the procedure, indications, risks,benefits, and alternatives to biopsy under intravenous conscious sedationto the patient, the patient gave consent. The risks that were stressedinclude bleeding, infection, allergic reaction, pain, damage to adjacentorgans, bleeding from the kidney requiring embolization, and cardio-pulmonarycompromise due to conscious sedation. The patient received 100 microgramsof intravenous Fentanyl, one milligrams of intravenous Versed, and 30minutes of intravenous conscious sedation by an independent, trainedobserver with monitoring of blood pressure, heart rate, pulse oximetry, and mentalstatus. CT images were obtained for localization purposes. CT demonstrated strandy opacities adjacent to the inferior poles of thekidney. The inferior aspect of the right kidney with lower and wasselected for biopsy. If CT was employed, automated dosage reduction techniques were utilized.All CT scans at this facility use dose modulation, iterativereconstruction, and/or weight based dosing when appropriate to reduceradiation dose to as low as reasonably achievable. The area was sterilely prepped and draped using maximal sterile barriertechnique with cap, mask, gown, gloves, sterile barrier field, andchlorhexidine. 1% xylocaine was administered for local anesthesia. Afterplacement of a 17-gauge guiding needle into the inferior pole of thekidney its position was confirmed with CT. Several cores were obtained with the 18-gaugebiopsy system. Gelfoam was used to embolize the tract at the end of theprocedure. There was no significant bleeding at the end of the procedurefrom the kidney. A small amount of bleeding was observed under the right posterior abdominal wall at the site of the needle entry... I waspersonally present throughout the procedure. The preliminary report fromthe cytopathologist in attendance indicated that an adequate amount ofmaterial had been obtained. There was no immediate complication from theprocedure. All CT scans at this facility use dose modulation, iterative reconstruction,and/or weight based dosing when appropriate to reduce radiation dose to aslow as reasonably achievable. Impression: CT-guided biopsy of inferior pole right kidney withoutsignificant complication. Finalized by Bradley Ontievros MD on 11/26/2023 12:52 PM us Lucy Huertas MD IMG IR ORDERABLES Final Res ult documented in this encounter Visit Diagnoses Diagnosis Kidney dysfunction- Primary Unspecified disorder of kidney and ureter Kidney dysfunction Unspecified disorder of kidney and ureter documented in this encounter Care Teams Computer Forensics Investigator Relationship Specialty Start Date End Date Masoud Cronin DO [address] [facility] [address] [facility] [place] [id number] PCP - General Internal Medicine 11/26/23 documented as of this encounter
[2025-01-24 16:09] LABS: Alanine Aminotransferase 48 U/L (16-63); Albumin Globulin Ratio 0.6; Albumin Level 2.8 g/dL (3.4-5.0); Alkaline Phosphatase 183 U/L (46-116); Anion Gap 14.6; Aspartate Amino Transferase 28 U/L (15-37); Blood Urea Nitrogen 50.0 mg/dL (7.0-18.0); Calcium 8.7 mg/dL (8.5-10.1); Carbon Dioxide 26.1 mmol/L (21.0-32.0); Chloride 103 mmol/L (98-107); Cholesterol 83 mg/dL (<=200); Estimated GFR (African America 25 (>=60 mL/min/1.73m^2); Estimated GFR (Non-African Ame 20 (>=60 mL/min/1.73m^2); Globulin 4.6 g/dL; Glucose 182 mg/dL (74-106); HDL Cholesterol 41 mg/dL (40-60); Potassium 4.7 mmol/L (3.5-5.1); Sodium 139 mmol/L (136-145); Thyroid Stimulating Hormone 0.702 uIU/mL (0.358-3.740); Total Protein 7.4 g/dL (6.4-8.2); Triglycerides 99 mg/dL (<=150); VLDL CHOLESTEROL 19.8 mg/dL
[2025-01-25 04:08] LABS: Vitamin B12 695 pg/mL (232-1245)
== END 2025-01-24 14:39 | disposition home or self-care (01) ==
DX: E11.65 Type 2 diabetes mellitus with hyperglycemia (principal)
CPT/HCPCS: 36415; 80053; 80061; 82607; 84439; 84443